=== PATIENT | male | born 1940 | race Hispanic/Latino ===

== ENCOUNTER 2019-01-05 19:57 | Inpatient (IN) | payer MEDICARE ==
[2019-01-05] MEDS ORDERED: TORADOL IV ONE (21:37)
[2019-01-05] MEDS ORDERED: NACL 0.9% 1000 ML 1,000 ML IV ONE ×2 (21:37→22:41)
[2019-01-05] MEDS ORDERED: ZOFRAN IV ONE (21:37)
--- NOTE | 2019-01-05 21:43 | Emergency Department Report ---
HPI - General Chief Complaint: Pain General Time Seen by Provider: 01/05/19 21:24 - HPI HPI: Room 26 The patient is 78-year-old male presented with a chief complaint of body aches. Patient has a history of heavy oxycodone use. The patient states he last used oxycodone 1 week ago. Since that time the patient states he's had diffuse body aches. Patient denies shortness of breath, cough or fever. Patient denies nausea/vomiting states he's had diarrhea for 3-4 days. The patient also states he's had pain in his right calf with swelling for 1 week as well. Patient was reportedly hypoxic in the 80s on room air. 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 denies: nausea, vomiting Genitourinary: denies: dysuria Musculoskeletal: arthralgia, myalgia Neurological: denies: headache Physical Exam - Physical Exam Vital Signs: Vital Signs 01/05/19 01/05/19 21:30 21:34 Temperature 97 F L Pulse Rate 152 H Respiratory 23 Rate Blood Pressure 106/68 O2 Sat by Pulse 92 Oximetry Physical Exam: GENERAL: The patient is well-developed well-nourished male lying on stretcher not appearing to be in acute distress. [] HEENT: Normocephalic. Atraumatic. Extraocular motions are intact. Patient has moist mucous membranes. NECK: Supple. Trachea midline CHEST/LUNGS: Clear to auscultation. There is no respiratory distress noted. HEART/CARDIOVASCULAR: Regular. There is tachycardia. There is no gallop rub or murmur. ABDOMEN: Abdomen is soft, nontender. Patient has normal bowel sounds. There is no abdominal distention. SKIN: There is no rash. There is right lower extremity edema. There is no diaphoresis. NEURO: The patient is awake, alert, and oriented. The patient is cooperative. The patient has normal speech MUSCULOSKELETAL: There is no evidence of acute injury. ED Course Vital Signs 01/05/19 01/05/19 21:30 21:34 Temperature 97 F L Pulse Rate 152 H Respiratory 23 Rate Blood Pressure 106/68 O2 Sat by Pulse 92 Oximetry ED Medical Decision Making - Lab Data Result diagrams: 01/05/19 23:16 01/05/19 23:41 Laboratory Tests 01/05/19 01/05/19 01/05/19 21:39 21:47 21:47 WBC RBC Hgb Hct MCV MCH MCHC RDW Plt Count Lymph % (Auto) [place] % (Auto) Eos % (Auto) Baso % (Auto) Lymph # [place] # Eos # Baso # Seg Neutrophils % Seg Neutrophils # PT 15.6 H INR 1.17 H APTT 24.1 L POC ABG pH POC ABG pCO2 POC ABG HCO3 POC ABG Total CO2 POC ABG O2 Sat POC ABG Base Excess FiO2 Sodium Potassium Chloride Carbon Dioxide Anion Gap BUN Creatinine Estimated GFR BUN/Creatinine Ratio Glucose Calcium Total Bilirubin AST ALT Alkaline Phosphatase Total Creatine Kinase 45 L CK-MB (CK-2) 1.3 CK-MB (CK-2) Rel Index 2.8 Troponin T Total Protein Albumin Albumin/Globulin Ratio Lipase Urine Color Yellow Urine Turbidity Clear Urine pH 6.0 Ur Specific [place] 1.005 Urine Protein <15 mg/dl Urine Glucose (UA) Neg Urine Ketones Neg Urine Blood Neg Urine Nitrite Neg Urine Bilirubin Neg Urine Urobilinogen < 2.0 Ur Leukocyte Esterase Neg Urine WBC (Auto) 1.0 Urine RBC (Auto) 1.0 Urine Mucus Few 01/05/19 01/05/19 01/05/19 21:47 22:07 23:16 WBC 26.5 H RBC 4.02 Hgb 12.7 Hct 38.2 MCV 95 H MCH 32 MCHC 33 RDW 15.6 H Plt Count 560 H Lymph % (Auto) Columnist/Commentator [place] % (Auto) Columnist/Commentator Eos % (Auto) Columnist/Commentator Baso % (Auto) Columnist/Commentator Lymph # Columnist/Commentator [place] # Columnist/Commentator Eos # Columnist/Commentator Baso # Columnist/Commentator Seg Neutrophils % Columnist/Commentator Seg Neutrophils # Columnist/Commentator PT INR APTT POC ABG pH 7.494 H POC ABG pCO2 42.2 POC ABG HCO3 32.4 POC ABG Total CO2 34 POC ABG O2 Sat 82 POC ABG Base Excess 9 FiO2 21 Sodium 123 L Potassium 7.7 H* Chloride 85.4 L Carbon Dioxide 29 Anion Gap 16 BUN 15 Creatinine 0.6 L Estimated GFR > 60 BUN/Creatinine Ratio 25 Glucose 93 Calcium 7.8 L Total Bilirubin 0.80 AST 115 H ALT 62 H Alkaline Phosphatase 168 H Total Creatine Kinase CK-MB (CK-2) CK-MB (CK-2) Rel Index Troponin T < 0.010 Total Protein 6.6 Albumin 1.5 L Albumin/Globulin Ratio 0.3 Lipase 32 Urine Color Urine Turbidity Urine pH Ur Specific [place] Urine Protein Urine Glucose (UA) Urine Ketones Urine Blood Urine Nitrite Urine Bilirubin Urine Urobilinogen Ur Leukocyte Esterase Urine WBC (Auto) Urine RBC (Auto) Urine Mucus 01/05/19 23:41 WBC RBC Hgb Hct MCV MCH MCHC RDW Plt Count Lymph % (Auto) [place] % (Auto) Eos % (Auto) Baso % (Auto) Lymph # [place] # Eos # Baso # Seg Neutrophils % Seg Neutrophils # PT INR APTT POC ABG pH POC ABG pCO2 POC ABG HCO3 POC ABG Total CO2 POC ABG O2 Sat POC ABG Base Excess FiO2 Sodium Potassium 4.7 D Chloride Carbon Dioxide Anion Gap BUN Creatinine Estimated GFR BUN/Creatinine Ratio Glucose Calcium Total Bilirubin AST ALT Alkaline Phosphatase Total Creatine Kinase CK-MB (CK-2) CK-MB (CK-2) Rel Index Troponin T Total Protein Albumin Albumin/Globulin Ratio Lipase Urine Color Urine Turbidity Urine pH Ur Specific [place] Urine Protein Urine Glucose (UA) Urine Ketones Urine Blood Urine Nitrite Urine Bilirubin Urine Urobilinogen Ur Leukocyte Esterase Urine WBC (Auto) Urine RBC (Auto) Urine Mucus - EKG Data -: EKG Interpreted by Me EKG shows normal: sinus rhythm Rate: tachycardia (146 bpm) - EKG Data When compared to previous EKG there are: previous EKG unavailable Interpretation: nonspecific ST-T wave marielos - Radiology Data Radiology results: report reviewed (CT chest), image reviewed (CT chest) [facility] [address] [place] [address] Cat Scan Report Signed Patient: ASHLEY BOATENG MR#: [id number] : 1940 Acct:[id number] Age/Sex: 78 / M ADM Date: 01/05/19 Loc: ED Attending Dr: Ordering Physician: BURAK DE OLIVEIRA MD Date of Service: 01/05/19 Procedure(s): CT angio chest Accession Number(s): [id number] cc: BURAK DE OLIVEIRA MD PROCEDURE: CT ANGIOGRAM OF THE CHEST FOR PULMONARY EMBOLISM TECHNIQUE: Computerized axial tomographic angiography of the chest and pulmonary arteries was performed after the IV injection of iodinated nonionic contrast. The image data was postprocessed using maximum intensity projection (MIP) and 2- dimensional multiplanar reformatted (MPR) techniques. The examination is specifically tailored to the evaluation of the pulmonary arteries per clinical request. Automated exposure control, adjustment of mA and/or kV according to patient size, or iterative reconstruction dose optimization techniques were utilized. CPT G9637, 98357 HISTORY: Shortness of breath R06.02, chest pain unspecified R07.9 , COMPARISONS: None . FINDINGS: Heart and pericardium: Normal. Thoracic aorta: There is calcified plaque in the thoracic aorta. 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 There is no dissection.. Pulmonary vasculature: Normal. No pulmonary emboli. Lymph nodes: No enlarged thoracic lymph nodes. Lungs: There are chronic fibrotic and emphysematous changes. There are diffuse bilateral pulmonary infiltrates consistent with pneumonitis.. Pleural space: There are small pleural effusions. There is no pneumothorax.. Musculoskeletal structures: There are old healed left-sided rib fractures.. Upper abdominal structures: No significant abnormality. IMPRESSION: There is calcified plaque in the thoracic aorta. 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 There i s no dissection. There is no pulmonary embolism. There are chronic fibrotic and emphysematous changes. There are diffuse bilateral pulmonary infiltrates consistent with pneumonitis. There are small pleural effusions. There is no pneumothorax. There are old healed left-sided rib fractures. This document is electronically signed by Umberto Dominguez MD., January 06 2019 12:05:21 AM ET Transcribed By: CO Dictated By: UMBERTO DOMINGUEZ MD Electronically Authenticated By: UMBETRO DOMINGUEZ MD Signed Date/Time: 01/06/19 0008 DD/ 99 TD/TT: 01/05/192300 - Differential Diagnosis PE, COPD, opiate withdrawal Critical care attestation.: If time is entered above; I have spent that time in minutes in the direct care o f this critically ill patient, excluding procedure time. ED Disposition Clinical Impression: Pneumonitis, Opiate withdrawal, Leukocytosis Disposition: OP ADMIT IP TO THIS HOSP Is pt being admited?: Yes Does the pt Need Aspirin: Yes Condition: Serious Referrals: TRICIA HECTOR MD [Primary Care Provider] - 3-5 Days Time of Disposition: 00:28 (hospitalist notified (Dr Pitts))
[2019-01-05] MEDS ORDERED: XOPENEX IH ONE (21:44)
[2019-01-05] MEDS ORDERED: BENADRYL PO ONE (21:45)
[2019-01-05 22:07] LABS: Bilirubin,Urine NEG (Negative); Blood,Urine NEG (Negative); Color,Urine Yellow (Yellow); Mucus,Urine FEW /HPF; Protein,Urine <15 mg/dL mg/dL (Negative); Urobilinogen,Urine < 2.0 mg/dL (<2.0)
[2019-01-05 22:20] LABS: INR 1.17 (0.87-1.13); Partial Thromboplastin Time 24.1 Sec. (24.2-36.6)
[2019-01-05 22:26] LABS: Creatine Kinase MB 1.3 ng/mL (0.0-4.0)
[2019-01-05 22:29] LABS: Albumin 1.5 g/dL (3.9-5); BUN/Creatinine Ratio 25; Blood Urea Nitrogen 15 mg/dL (9-20); Calcium 7.8 mg/dL (8.4-10.2); Hemolysis Index 488
[2019-01-05 22:58] LABS: Alanine Aminotransferase 62 units/L (7-56)
[2019-01-05 23:29] LABS: Hematocrit 38.2 % (35.5-45.6); Hemoglobin 12.7 gm/dl (11.8-15.2); Mean Corpuscular HGB Conc 33 % (32-34); Mean Corpuscular Volume 95 fl (84-94); Platelet Count 560 K/mm3 (140-440); Red Blood Count 4.02 M/mm3 (3.65-5.03); Red Cell Distribution Width 15.6 % (13.2-15.2)
--- NOTE | 2019-01-06 00:08 | Cat Scan Report ---
PROCEDURE: CT ANGIOGRAM OF THE CHEST FOR PULMONARY EMBOLISM TECHNIQUE: Computerized axial tomographic angiography of the chest and pulmonary arteries was perfor med after the IV injection of iodinated nonionic contrast. The image data was postprocessed using max imum intensity projection (MIP) and 2-dimensional multiplanar reformatted (MPR) techniques. The exami nation is specifically tailored to the evaluation of the pulmonary arteries per clinical request. Au tomated exposure control, adjustment of mA and/or kV according to patient size, or iterative reconstr uction dose optimization techniques were utilized. CPT G9637, 46173 HISTORY: Shortness of breath R06.02, chest pain unspecified R07.9 , COMPARISONS: None . FINDINGS: Heart and pericardium: Normal. Thoracic aorta: There is calcified plaque in the thoracic aorta. The ascending thoracic aorta is ect atic and measures up to 5 cm in diameter. There is no dissection.. Pulmonary vasculature: Normal. No pulmonary emboli. Lymph nodes: No enlarged thoracic lymph nodes. Lungs: There are chronic fibrotic and emphysematous changes. There are diffuse bilateral pulmonary i nfiltrates consistent with pneumonitis.. Pleural space: There are small pleural effusions. There is no pneumothorax.. Musculoskeletal structures: There are old healed left-sided rib fractures.. Upper abdominal structures: No significant abnormality. IMPRESSION: There is calcified plaque in the thoracic aorta. 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 There is no dissection. There is no pulmonary embolism. There are chronic fibrotic and emphysematous changes. There are diffuse bilateral pulmonary infiltrat es consistent with pneumonitis. There are small pleural effusions. There is no pneumothorax. There are old healed left-sided rib fractures. This document is electronically signed by Umberto Freeman MD., January 06 2019 12:05:21 AM ET
[2019-01-06] MEDS ORDERED: ZOSYN/NS 4.5GM/100ML 4.5 GM/100 ML VIAL IV ONE (00:10)
[2019-01-06] MEDS ORDERED: ZOFRAN IV PRN (01:52)
[2019-01-06] MEDS ORDERED: PROVENTIL IH PRN (01:54)
[2019-01-06 02:39] LABS: BUN/Creatinine Ratio 30; Blood Urea Nitrogen 15 mg/dL (9-20); Calcium 7.3 mg/dL (8.4-10.2); Hemolysis Index 10
[2019-01-06] MEDS: ATIVAN IV PRN (02:56)
[2019-01-06 03:34] LABS: Total Cells Counted 100
[2019-01-06 03:35] LABS: Basophils % (Manual) 0 % (0.0-1.8); Eosinophils % (Manual) 0 % (0.0-4.3); Large Platelets 1+; Platelet Estimate Appears Increased
[2019-01-06 03:36] LABS: Anisocytosis 1+; Ovalocytes 1+; Target Cells Few
[2019-01-06] MEDS ORDERED: DUONEB *Not for PRN Use IH ONE ×3 (03:42→15:01)
[2019-01-06] MEDS ORDERED: CARDIZEM IV ONE (04:28)
[2019-01-06] MEDS: DUONEB *Not for PRN Use IH SCH ×4 (04:41→20:48)
[2019-01-06] MEDS ORDERED: CARDIZEM ONE (04:59)
[2019-01-06] MEDS ORDERED: NACL 0.9% 1000 ML 1,000 ML ONE (05:00)
[2019-01-06] MEDS: NACL 0.9% 1000 ML 1,000 ML IV SCH (05:16)
--- NOTE | 2019-01-06 06:14 | History and Physical Report ---
CHIEF COMPLAINT: Generalized body pain. OTHER COMPLAINT: Include restlessness. HISTORY OF PRESENTING ILLNESS: The patient is a 78-year-old male who has been complaining of generalized body aches and also lethargy and the patient is known to be a heavy oxycodone user, but used his last oxycodone 1 week prior to presentation and ever since then, has been having generalized body pain. There is no history of nausea and vomiting, but there is history of diarrhea for about 3-4 days. The patient denies history of chest pain. Denied history of shortness of breath, cough, fever or chills and was noted to have a low oxygen saturation while on room air, which was running in the 80s and the patient was evaluated in the Emergency Room. PAST MEDICAL HISTORY: Pertinent for hypertension, COPD, hypothyroidism. 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 FAMILY HISTORY: Family history is noncontributory. SOCIAL HISTORY: The patient smokes cigarettes, uses oxycodone a lot and is not clear whether the patient drinks alcohol. MEDICATIONS: The patient is on aspirin 81 mg daily. The patient is also on zolpidem ____ mg by mouth at bedtime and the patient is on ferrous sulfate 325 mg one by mouth daily. The patient is on ibuprofen 200 mg by mouth every 6 hours and levothyroxine 112 mcg by mouth daily. The patient is also on lisinopril 5 mg by mouth at bedtime and Percocet 5/325 mg 1 tablet by mouth every 4 hours as needed for pain. ALLERGIES: THE PATIENT IS ALLERGIC TO PREGABALIN. REVIEW OF SYSTEMS: CONSTITUTIONAL: There is no fever, no chills, no diaphoresis. HEENT: There is no headache or sore throat. CARDIOVASCULAR SYSTEM: There is no chest pain or orthopnea. RESPIRATORY SYSTEM: Difficulty in breathing noted, no cough. GASTROINTESTINAL SYSTEM: There is no nausea, no vomiting, no abdominal pain, diarrhea or constipation. NEUROLOGICAL SYSTEM: Lethargy noted. No dizziness, no numbness. MUSCULOSKELETAL SYSTEM: Generalized body pain noted. No joint swelling. DERMATOLOGICAL SYSTEM: There is no skin rash or itching. GENITOURINARY SYSTEM: There is no dysuria, hematuria or flank pain. Rest of system review is normal. PHYSICAL EXAMINATION: GENERAL: At the time of exam, the patient was found to be lethargic, but arousable, unable to communicate and oriented to person only and not in acute distress. VITAL SIGNS: At the initial time of presentation show temperature of 97 degrees Fahrenheit, pulse of 152, respirations 23, blood pressure of 106/65, O2 sat of 92% on oxygen. HEENT: Showed pupils to be equal, round, reactive to light and accommodating. Extraocular muscles are intact. NECK: Neck is supple with no JVD or carotid bruit. CARDIOVASCULAR SYSTEM: Showed normal first and second heart sounds with no gallops or murmurs. RESPIRATORY SYSTEM: Show reduced air entry on both sides of the lungs with no abnormal breath sounds. GASTROINTESTINAL SYSTEM: Show abdomen to be full, soft, nontender with no organomegaly or rigidity. NEUROLOGICAL: Neuro exam shows the patient to be lethargic, but arousable, able to communicate with no focal deficit. MUSCULOSKELETAL SYSTEM: Show swelling of both legs including the ankles with no tenderness. DERMATOLOGIC SYSTEM: Show no skin rash. GENITOURINARY SYSTEM: Show no costovertebral angle tenderness. PERTINENT LABORATORY DATA AND IMAGING STUDIES: The patient has CT angiogram of the chest done that shows calcified plaque in the thoracic aorta with no evidence of dissection or embolism. There are chronic fibrotic and emphysematous changes and there is finding of diffuse bilateral pulmonary infiltrates consistent with pneumonitis according to the radiologist. There are small pleural effusion and no pneumothorax. Lab results; the patient has CBC done with elevated white count of 26,500 with normal hemoglobin, normal hematocrit with CBC differential showing high segmented neutrophil of 91% with CBC differential showing elevated segmented neutrophil count of 24.1. The patient's coagulation studies show a little high PT of 15.6. The patient's ABG show elevated pH of 7.49 with normal pCO2 of 42.2, normal bicarb, low O2 sat of 82% on room air. The patient's chemistry show initial low sodium level of 123, low chloride of 85.4 with unremarkable renal function test. The patient's liver transaminases show high AST of 115 with high ALT of 62 and total CK of 45 with low albumin of 1.5. The patient's urinalysis was unremarkable. DIAGNOSES: 1. Possible opioid withdrawal. 2. Pneumonitis. 3. Hypoxia. 4. Leukocytosis. PLAN OF CARE: 1. The patient will be admitted to telemetry. 2. The patient will have a dose of Cardizem 20 mg IV because of tachycardia. 3. The patient will have cardiac enzymes involving troponin checked q. 6 hours x 2 more levels. 4. The patient will have TSH and free T4 checked with the blood in the lab and we will have basic metabolic panel checked early childhood director and also at about 6:00 a.m. 5. The patient will be on IV normal saline at 75 mL an hour and will continue BiPAP that was started in the Emergency Room. 6. The patient will be on IV Zosyn 3.375g q. 8 hours for treatment of pneumonitis and will be on IV Zofran 4 mg every 8 hours as needed for nausea and vomiting and Tylenol 650mg by mouth every 4 hours for fever and headache. The patient will be on albuterol nebulizer 2.5 mg every 4 hours for shortness of breath and DVT prophylaxis, the patient will be on heparin 5000 units q. 12 hours. 7. The patient will be on duo nebulizer every 6 hours. 8. The patient will be on his home medication as shown in the medication reconciliation section. JOB# [id number] OCN/NTS
[2019-01-06] MEDS: SYNTHROID PO SCH (06:50)
[2019-01-06] MEDS: ZOSYN/NS 3.375GM/50ML 3.375 GM/50 ML BAG IV SCH ×3 (06:50→23:28)
[2019-01-06] MEDS ORDERED: CARDIZEM 100 MG in D5W 80 ML IV SCH (07:00)
[2019-01-06 07:54] LABS: BUN/Creatinine Ratio 30; Blood Urea Nitrogen 15 mg/dL (9-20); Calcium 7.4 mg/dL (8.4-10.2); Hemolysis Index 23
--- NOTE | 2019-01-06 08:51 | Consultation ---
History of Present Illness Consult date: 01/06/19 Requesting physician: TORO TORRES Reason for consult: COPD, hypoxemia, pneumonia History of present illness: Patient is a 78 year old male who was brought to the emergency department with complaints of generalized pain. He bilateral pneumonia, acute hypoxemic respiratory failure requiring supplemental oxygen and SVT. A pulmonary-critical care consult was requested. On admission, Initial labs revealed leukocytosis, WBC of 26.5 and severe hyponatremia with a sodium of 123. TSH is 9.25. A chest CTA scan documents an ectatic ascending thoracic aorta measuring 5cm. There are chronic emphysematous changes. There are diffuse bilateral pulmonary infiltrates. No evidence of pulmonary embolism. Patient has a history of hypothyroidism, chronic narcotic use and tobacco use disorder with ongoing use. Patient was seen and examined in the ED. Vitals, labs, medications, chart and and imaging were reviewed. He is intermittently confused, on oxygen via a Venturi mask, FIO2 of 50% Amiodarone infusion. 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 denies: nausea, vomiting Genitourinary: denies: dysuria Musculoskeletal: arthralgia, myalgia Neurological: denies: headache Medications and Allergies Allergies Allergy/AdvReac Type Severity Reaction Status Date / Time pregabalin [From Lyrica] AdvReac Unknown Verified 01/05/19 21:43 Home Medications Medication Instructions Recorded Confirmed Last Taken Type Aspirin EC 81 mg PO DAILY 01/06/19 01/06/19 Unknown History Eszopiclone 3 mg PO HS 01/06/19 01/06/19 Unknown History Ferrous Sulfate [Iron] 1 tab PO DAILY 01/06/19 01/06/19 Unknown History Ibuprofen 200 mg PO Q6HR PRN 01/06/19 01/06/19 Unknown History Levothyroxine [Synthroid] 112 mcg PO DAILY 01/06/19 01/06/19 Unknown History Lisinopril [Prinivil] 5 mg PO HS 01/06/19 01/06/19 Unknown History oxyCODONE /ACETAMINOPHEN [Percocet 5 mg PO Q4HR PRN 01/06/19 01/06/19 Unknown History 5/325 mg] Active Meds: Active Medications Acetaminophen (Tylenol) 650 mg PO Q4H PRN PRN Reason: Pain, Mild (1-3) Albuterol/Ipratropium (Duoneb *Not For Prn Use*) 1 ampul IH Q6HRT [facility] Last Admin: 01/06/19 08:42 Dose: 1 ampul Documented by: Aspirin (Halfprin Ec) 81 mg PO DAILY JONI Ferrous Sulfate (Feosol) 325 mg PO DAILY [facility] Heparin Sodium (Porcine) (Heparin) 5,000 unit SUB-Q Q12HR JONI Piperacillin Sod/Tazobactam Sod (Zosyn/Ns 3.375gm/50ml) 3.375 gm in 50 mls @ 100 mls/hr IV Q8HR JONI; Protocol Last Admin: 01/06/19 06:50 Dose: 100 mls/hr Documented by: Sodium Chloride (Nacl 0.9% 1000 Ml) 1,000 mls @ 75 mls/hr IV DIRECT JONI Last Admin: 01/06/19 05:16 Dose: 75 mls/hr Documented by: Diltiazem HCl 100 mg/ Dextrose 100 mls @ 5 mls/hr IV DIRECT JONI; Protocol Last Admin: 01/06/19 07:14 Dose: 5 mg/hr, 5 mls/hr Documented by: Amiodarone HCl 900 mg/ (Dextrose) 500 mls @ 33.333 mls/hr IV DIRECT JONI; Protocol Levothyroxine Sodium (Synthroid) 112 mcg PO DAILY@0600 JONI Last Admin: 01/06/19 06:50 Dose: 112 mcg Documented by: Lisinopril (Zestril) 5 mg PO HS [facility] Lorazepam (Ativan) 1 mg IV Q4H PRN PRN Reason: Anxiety Last Admin: 01/06/19 02:56 Dose: 1 mg Documented by: Miscellaneous Medication (Eszopiclone [Eszopiclone]) 3 mg PO HS JONI Ondansetron HCl (Zofran) 4 mg IV Q8H PRN PRN Reason: Nausea And Vomiting Physical Examination Vital signs: Vital Signs Pulse Resp BP Pulse Ox 152 H 23 106/68 91 01/05/19 21:30 01/05/19 21:30 01/05/19 21:30 01/05/19 21:30 GENERAL: The patient is well-developed chronically ill male lying on stretcher In moderate respiratory distress, with supplemental oxygen via venturi mask HEENT: Normocephalic. Atraumatic. Extraocular motions are intact. Patient has moist mucous membranes. NECK: Supple. Trachea midline CHEST/LUNGS: Decreased AE bilaterally, Occ rhonchi HEART/CARDIOVASCULAR: Regular. There is tachycardia. There is no gallop rub or murmur. ABDOMEN: Abdomen is soft, non tender. Patient has normal bowel sounds. There is no abdominal distention. SKIN: There is no rash. There is right lower extremity edema. There is no d iaphoresis. NEURO: The patient is awake, alert, episodes of intermittent confusions with mumbling MUSCULOSKELETAL: There is no evidence of acute injury. Right knee post surgical scar Results - Laboratory Findings CBC and BMP: 01/12/19 05:39 01/12/19 05:42 ABG POC ABG pH 7.494 (7.35-7.45) H 01/05/19 22:07 POC ABG pCO2 42.2 (35-45) 01/05/19 22:07 POC ABG HCO3 32.4 (22-26 mml/L) 01/05/19 22:07 POC ABG Total CO2 34 (23-27mmol/L) 01/05/19 22:07 POC ABG O2 Sat 82 01/05/19 22:07 PT/INR, D-dimer PT 15.6 Sec. (12.2-14.9) H 01/05/19 21:47 INR 1.17 (0.87-1.13) H 01/05/19 21:47 Abnormal lab findings: Abnormal Labs 01/05/19 01/05/19 01/05/19 21:47 21:47 21:47 WBC MCV RDW Plt Count Seg Neuts % (Manual) Lymphocytes % (Manual) Seg Neutrophils # Man Lymphocytes # (Manual) Monocytes # (Manual) PT 15.6 H INR 1.17 H APTT 24.1 L POC ABG pH Sodium 123 L Potassium 7.7 H* Chloride 85.4 L Creatinine 0.6 L Glucose Calcium 7.8 L AST 115 H ALT 62 H Alkaline Phosphatase 168 H Total Creatine Kinase 45 L NT-Pro-B Natriuret Pep Albumin 1.5 L TSH 01/05/19 01/05/19 01/06/19 22:07 23:16 02:16 WBC 26.5 H MCV 95 H RDW 15.6 H Plt Count 560 H Seg Neuts % (Manual) 91.0 H Lymphocytes % (Manual) 4.0 L Seg Neutrophils # Man 24.1 H Lymphocytes # (Manual) 1.1 L Monocytes # (Manual) 1.3 H PT INR APTT POC ABG pH 7.494 H Sodium 131 L D Potassium Chloride 94.0 L Creatinine 0.5 L Glucose 122 H Calcium 7.3 L AST ALT Alkaline Phosphatase Total Creatine Kinase NT-Pro-B Natriuret Pep Albumin TSH 01/06/19 01/06/19 01/06/19 07:24 07:24 07:24 WBC MCV RDW Plt Count Seg Neuts % (Manual) Lymphocytes % (Manual) Seg Neutrophils # Man Lymphocytes # (Manual) Monocytes # (Manual) PT INR APTT POC ABG pH Sodium 132 L Potassium Chloride 96.3 L Creatinine 0.5 L Glucose Calcium 7.4 L AST ALT Alkaline Phosphatase Total Creatine Kinase NT-Pro-B Natriuret Pep 8941 H Albumin TSH 9.270 H - Diagnostic Findings Chest x-ray: image reviewed CT scan - chest: image reviewed (Emphysema, diffuse infiltrates, no PE) Assessment and Plan Acute Hypoxemic Respiratory Failure Bilateral pneumonia Acute COPD exacerbation Bilateral Pleural Effusions CMOP (HFpEF) Aortic Stenosis SVT Hyponatremia Hypothyroidism Elevated LFTs -Supplemental oxygen to keep O2 sats 88-90% -NIPPV as indicated fro work of breathing -Antibiotics for CAP -Bronchodilators, avoid YOLY use GILBERTO for now in view of SVT -VTE prophylaxis -Steroids for AE-COPD -Smoking cessation counselling done -Nicotine withdrawal precautions -Right lower extremity USS to r/o VTE -Hear failure measures -Chronic home medications, including thyroid replacement therapy -Pain management -Accuchecks with insulin therapy as needed for glycemic control -Target blood glucose 140-180mg/dL -prn CXR and ABG -Outpatient pulmonary follow up on discharge for optimization of treatment of COPD -SVT probably secondary to pulmonary illness, Cardiology consulted -Hyponatremia, gentle hydration with normal saline, follow electrolyte profile Discussed with ED physician CONDITION: CRITICAL PROGNOSIS: GUARDED CODE STATUS: FULL The high probability of a clinically significant, sudden or life threatening deterioration of the [cardiovascular and respiratory] system(s) required my full and direct attention, intervention and personal management. The aggregate critical care time was [35] minutes. This time is in addition to time spent performing reported procedures but includes the following: [x] Data Review and interpretation [x] Patient assessment and monitoring of vital signs [x] Documentation [x] Medication orders and management
[2019-01-06] MEDS: CORDARONE 900 MG in D5W 482 ML IV SCH (09:22)
[2019-01-06] MEDS ORDERED: HEPARIN ONE ×2 (09:38→22:13)
[2019-01-06] MEDS: FEOSOL PO SCH (09:40)
[2019-01-06] MEDS: HEPARIN SUB-Q SCH ×2 (09:42→22:13)
[2019-01-06] MEDS ORDERED: NON-FORMULARY (Aspirin Ec 81 MG) PO SCH (10:00)
[2019-01-06] MEDS: HALFPRIN EC PO SCH (10:50)
--- NOTE | 2019-01-06 11:05 | Consultation ---
History of Present Illness Consult date: 01/06/19 Consult reason: atrial fibrillation History of present illness: Patient is a 78 year old male who was brought to the emergency department with complaints of generalized pain. A cardiac consultation was requested for atrial fibrillation. On review, his EKG is narrow complex tachycardia consistent with AV node reentry tachycardia. There is no evidence of atrial fibrillation. Initial labs revealed leukocytosis, WBC of 26.5 and severe hyponatremia with a sodium of 123. TSH is 9.25. A chest CTA scan documents an ectatic ascending thoracic aorta measuring 5cm. There are chronic emphysematous changes. There are diffuse bilateral pulmonary infiltrates. No evidence of pulmonary embolism. Patient has a history of hypothyroidism. Patient also smokes cigarettes. He is known to [facility] and was recently seen by Dr Walker for anticipated carpal tunnel surgery. His latest cardiac workup was done January 2018. He had a stress thallium stress test that reports a small fixed mid apical wall defect with a well preserved left ventricular ejection fraction 55% on an echocardiogram. Medications and Allergies Allergies Allergy/AdvReac Type Severity Reaction Status Date / Time pregabalin [From Lyrica] AdvReac Unknown Verified 01/05/19 21:43 Home Medications Medication Instructions Recorded Confirmed Last Taken Type Aspirin EC 81 mg PO DAILY 01/06/19 01/06/19 Unknown History Eszopiclone 3 mg PO HS 01/06/19 01/06/19 Unknown History Ferrous Sulfate [Iron] 1 tab PO DAILY 01/06/19 01/06/19 Unknown History Ibuprofen 200 mg PO Q6HR PRN 01/06/19 01/06/19 Unknown History Levothyroxine [Synthroid] 112 mcg PO DAILY 01/06/19 01/06/19 Unknown History Lisinopril [Prinivil] 5 mg PO HS 01/06/19 01/06/19 Unknown History oxyCODONE /ACETAMINOPHEN [Percocet 5 mg PO Q4HR PRN 01/06/19 01/06/19 Unknown History 5/325 mg] Active Meds: Active Medications Acetaminophen (Tylenol) 650 mg PO Q4H PRN PRN Reason: Pain, Mild (1-3) Albuterol/Ipratropium (Duoneb *Not For Prn Use*) 1 ampul IH Q6HRT [facility] Last Admin: 01/06/19 08:42 Dose: 1 ampul Documented by: Aspirin (Halfprin Ec) 81 mg PO DAILY [facility] Last Admin: 01/06/19 10:50 Dose: 81 mg Documented by: Ferrous Sulfate (Feosol) 325 mg PO DAILY JONI Last Admin: 01/06/19 09:40 Dose: 325 mg Documented by: Heparin Sodium (Porcine) (Heparin) 5,000 unit SUB-Q Q12HR JONI Last Admin: 01/06/19 09:42 Dose: 5,000 unit Documented by: Piperacillin Sod/Tazobactam Sod (Zosyn/Ns 3.375gm/50ml) 3.375 gm in 50 mls @ 100 mls/hr IV Q8HR JONI; Protocol Last Admin: 01/06/19 06:50 Dose: 100 mls/hr Documented by: Sodium Chloride (Nacl 0.9% 1000 Ml) 1,000 mls @ 75 mls/hr IV DIRECT JONI Last Admin: 01/06/19 05:16 Dose: 75 mls/hr Documented by: Diltiazem HCl 100 mg/ Dextrose 100 mls @ 5 mls/hr IV DIRECT JONI; Protocol Last Admin: 01/06/19 07:14 Dose: 5 mg/hr, 5 mls/hr Documented by: Amiodarone HCl 900 mg/ (Dextrose) 500 mls @ 33.333 mls/hr IV DIRECT JONI; Protocol Last Admin: 01/06/19 09:22 Dose: 1 mg/min, 33.333 mls/hr Documented by: Levothyroxine Sodium (Synthroid) 112 mcg PO DAILY@0600 JONI Last Admin: 01/06/19 06:50 Dose: 112 mcg Documented by: Lisinopril (Zestril) 5 mg PO HS JONI Lorazepam (Ativan) 1 mg IV Q4H PRN PRN Reason: Anxiety Last Admin: 01/06/19 02:56 Dose: 1 mg Documented by: Miscellaneous Medication (Eszopiclone [Eszopiclone]) 3 mg PO HS JONI Ondansetron HCl (Zofran) 4 mg IV Q8H PRN PRN Reason: Nausea And Vomiting Physical Examination Vital Signs Pulse Resp BP Pulse Ox 152 H 23 106/68 91 01/05/19 21:30 01/05/19 21:30 01/05/19 21:30 01/05/19 21:30 General appearance: no acute distress HEENT: Positive: PERRL Neck: Positive: trachea midline Cardiac: Positive: Tachycardia Lungs: Positive: Decreased Breath Sounds Neuro: Positive: Grossly Intact Results 01/05/19 23:16 01/06/19 07:24 Cardiac Enzymes 01/05/19 01/05/19 Range/Units 21:47 21:47 AST 115 H (5-40) units/L CK-MB (CK-2) 1.3 (0.0-4.0) ng/mL Coagulation 01/05/19 Range/Units 21:47 PT 15.6 H (12.2-14.9) Sec. INR 1.17 H (0.87-1.13) APTT 24.1 L (24.2-36.6) Sec. CBC 01/05/19 Range/Units 23:16 WBC 26.5 H (4.5-11.0) K/mm3 RBC 4.02 (3.65-5.03) M/mm3 Hgb 12.7 (11.8-15.2) gm/dl Hct 38.2 (35.5-45.6) % Plt Count 560 H (140-440) K/mm3 Lymph # [employer] Dickens # [employer] Eos # [employer] Baso # [employer] Comprehensive Metabolic Panel 01/05/19 01/05/19 01/06/19 Range/Units 21:47 23:41 02:16 Sodium 123 L 131 L D (137-145) mmol/L Potassium 7.7 H* 4.7 D 4.6 (3.6-5.0) mmol/L Chloride 85.4 L 94.0 L (98-107) mmol/L Carbon Dioxide 29 30 (22-30) mmol/L BUN 15 15 (9-20) mg/dL Creatinine 0.6 L 0.5 L (0.8-1.5) mg/dL Glucose 93 122 H (75-100) mg/dL Calcium 7.8 L 7.3 L (8.4-10.2) mg/dL AST 115 H (5-40) units/L ALT 62 H (7-56) units/L Alkaline Phosphatase 168 H (35-129) units/L Total Protein 6.6 (6.3-8.2) g/dL Albumin 1.5 L (3.9-5) g/dL 01/06/19 Range/Units 07:24 Sodium 132 L (137-145) mmol/L Potassium 4.5 (3.6-5.0) mmol/L Chloride 96.3 L (98-107) mmol/L Carbon Dioxide 29 (22-30) mmol/L BUN 15 (9-20) mg/dL Creatinine 0.5 L (0.8-1.5) mg/dL Glucose 87 (75-100) mg/dL Calcium 7.4 L (8.4-10.2) mg/dL AST (5-40) units/L ALT (7-56) units/L Alkaline Phosphatase (35-129) units/L Total Protein (6.3-8.2) g/dL Albumin (3.9-5) g/dL Assessment and Plan Generalized pain -chief complaint AVNRT Hypothyroidism Pneumonia Severe hyponatremia Elevated liver transaminase Chronic lung disease Tobacco abuse Chest CTA documents an ectatic ascending thoracic aorta measuring 5cm. There are chronic emphysematous changes. There are diffuse bilateral pulmonary infiltrates. No evidence of pulmonary embolism. Cardiac tests 01/2018: Well preserved LVEF on echo. Small fixed apical wall defect, no reversible ischemia on MPI.
--- NOTE | 2019-01-06 12:12 | Progress Note ---
Assessment and Plan Assessment and plan: Sepsis. Patient needs criteria given the tachycardia, leukocytosis and diagnosis of pneumonia. Follow-up blood and urine cultures. Bilateral pneumonia. Continue IV antibiotics. Follow serial chest x-ray. SVT. Etiology likely secondary to above. Continue amiodarone. No evidence of PE on Chest CTA. Well preserved LVEF on echo 01/2018. Small fixed apical wall defect, no reversible ischemia on MPI 01/2018. Cardiology following. Hyponatremia. IV fluid normal saline. Hypothyroidism. TSH is 9.25. Start Synthroid. Elevated LFTs. Etiology likely secondary to sepsis/hypotension. The high probability of a clinically significant, sudden or life threatening deterioration of the [cardiac, hemodynamic and respiratory] system(s) required my full and direct attention, intervention and personal management. The aggregate critical care time was [33] minutes. This time is in addition to time spent performing reported procedures but includes the following: [x] Data Review and interpretation [x] Patient assessment and monitoring of vital signs [x] Documentation [x] Medication orders and management History Interval history: Patient is a 78 year old male who was brought to the emergency department with complaints of generalized pain. A cardiac consultation was requested for atrial fibrillation. On review, his EKG is wide complex tachycardia consistent with SVT. There is no evidence of atrial fibrillation. The patient was initially started on Cardizem drip but developed hypotension. Amiodarone drip was then initiated. On admission, Initial labs revealed leukocytosis, WBC of 26.5 and severe hyponatremia with a sodium of 123. TSH is 9.25. A chest CTA scan documents an ectatic ascending thoracic aorta measuring 5cm. There are chronic emphysematous changes. There are diffuse bilateral pulmonary infiltrates. No evidence of pulmonary embolism. Patient has a history of hypothyroidism. Patient also smokes cigarettes. He is known to [facility] and was recently seen by Dr Walker for anticipated carpal tunnel surgery. His latest cardiac workup was done January 2018. He had a stress thallium stress test that reports a small fixed mid apical wall defect with a well preserved left ventricular ejection fraction 55% on an echocardiogram. No new issues overnight. Hospitalist Physical - Constitutional Vitals: Temp Pulse Resp BP Pulse Ox 98.8 F 148 H 20 102/64 96 01/06/19 07:34 01/06/19 09:22 01/06/19 09:22 01/06/19 09:22 01/06/19 09:22 General appearance: Present: no acute distress - EENT Eyes: Present: PERRL, EOM intact ENT: hearing intact, clear oral mucosa, dentition normal - Neck Neck: Present: supple, normal ROM - Respiratory Respiratory effort: normal Respiratory: bilateral: diminished, rhonchi - Cardiovascular Rhythm: regular Heart Sounds: Present: S1 & S2. Absent: gallop, rub - Extremities Extremities: no ischemia, No edema, Full ROM - Abdominal General gastrointestinal: soft, non-tender, non-distended, normal bowel sounds - Integumentary Integumentary: Present: clear, warm, dry - Neurologic Neurologic: CNII-XII intact, moves all extremities Results - Labs CBC & Chem 7: 01/05/19 23:16 01/06/19 07:24 Labs: Laboratory Last Values WBC 26.5 K/mm3 (4.5-11.0) H 01/05/19 23:16 RBC 4.02 M/mm3 (3.65-5.03) 01/05/19 23:16 Hgb 12.7 gm/dl (11.8-15.2) 01/05/19 23:16 Hct 38.2 % (35.5-45.6) 01/05/19 23:16 MCV 95 fl (84-94) H 01/05/19 23:16 MCH 32 pg (28-32) 01/05/19 23:16 MCHC 33 % (32-34) 01/05/19 23:16 RDW 15.6 % (13.2-15.2) H 01/05/19 23:16 Plt Count 560 K/mm3 (140-440) H 01/05/19 23:16 Lymph % (Auto) Screen Making Supervisor 01/05/19 23:16 [place] % (Auto) Screen Making Supervisor 01/05/19 23:16 Eos % (Auto) Screen Making Supervisor 01/05/19 23:16 Baso % (Auto) Screen Making Supervisor 01/05/19 23:16 Lymph # Screen Making Supervisor 01/05/19 23:16 [place] # Screen Making Supervisor 01/05/19 23:16 Eos # Screen Making Supervisor 01/05/19 23:16 Baso # Screen Making Supervisor 01/05/19 23:16 Add Manual Diff Complete 01/05/19 23:16 Total Counted 100 01/05/19 23:16 Seg Neutrophils % Screen Making Supervisor 01/05/19 23:16 Seg Neuts % (Manual) 91.0 % (40.0-70.0) H 01/05/19 23:16 Band Neutrophils % 0 % 01/05/19 23:16 Lymphocytes % (Manual) 4.0 % (13.4-35.0) L 01/05/19 23:16 Reactive Lymphs % (Man) 0 % 01/05/19 23:16 Monocytes % (Manual) 5.0 % (0.0-7.3) 01/05/19 23:16 Eosinophils % (Manual) 0 % (0.0-4.3) 01/05/19 23:16 Basophils % (Manual) 0 % (0.0-1.8) 01/05/19 23:16 Metamyelocytes % 0 % 01/05/19 23:16 Myelocytes % 0 % 01/05/19 23:16 Promyelocytes % 0 % 01/05/19 23:16 Blast Cells % 0 % 01/05/19 23:16 Nucleated RBC % Not Reportable 01/05/19 23:16 Seg Neutrophils # Screen Making Supervisor 01/05/19 23:16 Seg Neutrophils # Man 24.1 K/mm3 (1.8-7.7) H 01/05/19 23:16 Band Neutrophils # 0.0 K/mm3 01/05/19 23:16 Lymphocytes # (Manual) 1.1 K/mm3 (1.2-5.4) L 01/05/19 23:16 Abs React Lymphs (Man) 0.0 K/mm3 01/05/19 23:16 Monocytes # (Manual) 1.3 K/mm3 (0.0-0.8) H 01/05/19 23:16 Eosinophils # (Manual) 0.0 K/mm3 (0.0-0.4) 01/05/19 23:16 Basophils # (Manual) 0.0 K/mm3 (0.0-0.1) 01/05/19 23:16 Metamyelocytes # 0.0 K/mm3 01/05/19 23:16 Myelocytes # 0.0 K/mm3 01/05/19 23:16 Promyelocytes # 0.0 K/mm3 01/05/19 23:16 Blast Cells # 0.0 K/mm3 01/05/19 23:16 WBC Morphology Not Reportable 01/05/19 23:16 Hypersegmented Neuts Not Reportable 01/05/19 23:16 Hyposegmented Neuts Not Reportable 01/05/19 23:16 Hypogranular Neuts Not Reportable 01/05/19 23:16 Smudge Cells Not Reportable 01/05/19 23:16 Toxic Granulation Not Reportable 01/05/19 23:16 Toxic Vacuolation Not Reportable 01/05/19 23:16 Dohle Bodies Not Reportable 01/05/19 23:16 Pelger-Huet Anomaly Not Reportable 01/05/19 23:16 Eugenio Rods Not Reportable 01/05/19 23:16 Platelet Estimate Appears increased 01/05/19 23:16 Clumped Platelets Not Reportable 01/05/19 23:16 Plt Clumps, EDTA Not Reportable 01/05/19 23:16 Large Platelets 1+ 01/05/19 23:16 Giant Platelets Not Reportable 01/05/19 23:16 Platelet Satelliting Not Reportable 01/05/19 23:16 Plt Morphology Comment Not Reportable 01/05/19 23:16 RBC Morphology Not Reportable 01/05/19 23:16 Dimorphic RBCs Not Reportable 01/05/19 23:16 Polychromasia Not Reportable 01/05/19 23:16 Hypochromasia Not Reportable 01/05/19 23:16 Poikilocytosis Not Reportable 01/05/19 23:16 Anisocytosis 1+ 01/05/19 23:16 Microcytosis Not Reportable 01/05/19 23:16 Macrocytosis Not Reportable 01/05/19 23:16 Spherocytes Not Reportable 01/05/19 23:16 Pappenheimer Bodies Not Reportable 01/05/19 23:16 Sickle Cells Not Reportable 01/05/19 23:16 Target Cells Few 01/05/19 23:16 Tear Drop Cells Not Reportable 01/05/19 23:16 Ovalocytes 1+ 01/05/19 23:16 Helmet Cells Not Reportable 01/05/19 23:16 [place] Bodies Not Reportable 01/05/19 23:16 [place] Rings Not Reportable 01/05/19 23:16 [place] Cells Not Reportable 01/05/19 23:16 Bite Cells Not Reportable 01/05/19 23:16 Crenated Cell Not Reportable 01/05/19 23:16 Elliptocytes Not Reportable 01/05/19 23:16 Acanthocytes (Spur) Not Reportable 01/05/19 23:16 Rouleaux Not Reportable 01/05/19 23:16 Hemoglobin C Crystals Not Reportable 01/05/19 23:16 Schistocytes Not Reportable 01/05/19 23:16 Malaria parasites Not Reportable 01/05/19 23:16 [place] Bodies Not Reportable 01/05/19 23:16 Hem Pathologist Commnt No 01/05/19 23:16 PT 15.6 Sec. (12.2-14.9) H 01/05/19 21:47 INR 1.17 (0.87-1.13) H 01/05/19 21:47 APTT 24.1 Sec. (24.2-36.6) L 01/05/19 21:47 POC ABG pH 7.494 (7.35-7.45) H 01/05/19 22:07 POC ABG pCO2 42.2 (35-45) 01/05/19 22:07 POC ABG HCO3 32.4 (22-26 mml/L) 01/05/19 22:07 POC ABG Total CO2 34 (23-27mmol/L) 01/05/19 22:07 POC ABG O2 Sat 82 01/05/19 22:07 POC ABG Base Excess 9 ((-2) - (+3)mmol/L) 01/05/19 22:07 FiO2 21 % 01/05/19 22:07 Sodium 132 mmol/L (137-145) L 01/06/19 07:24 Potassium 4.5 mmol/L (3.6-5.0) 01/06/19 07:24 Chloride 96.3 mmol/L (98-107) L 01/06/19 07:24 Carbon Dioxide 29 mmol/L (22-30) 01/06/19 07:24 Anion Gap 11 mmol/L 01/06/19 07:24 BUN 15 mg/dL (9-20) 01/06/19 07:24 Creatinine 0.5 mg/dL (0.8-1.5) L 01/06/19 07:24 Estimated GFR > 60 ml/min 01/06/19 07:24 BUN/Creatinine Ratio 30 % 01/06/19 07:24 Glucose 87 mg/dL (75-100) 01/06/19 07:24 Calcium 7.4 mg/dL (8.4-10.2) L 01/06/19 07:24 Total Bilirubin 0.80 mg/dL (0.1-1.2) 01/05/19 21:47 AST 115 units/L (5-40) H 01/05/19 21:47 ALT 62 units/L (7-56) H 01/05/19 21:47 Alkaline Phosphatase 168 units/L (35-129) H 01/05/19 21:47 Total Creatine Kinase 45 units/L (55-170) L 01/05/19 21:47 CK-MB (CK-2) 1.3 ng/mL (0.0-4.0) 01/05/19 21:47 CK-MB (CK-2) Rel Index 2.8 (0-4) 01/05/19 21:47 Troponin T < 0.010 ng/mL (0.00-0.029) 01/06/19 07:24 NT-Pro-B Natriuret Pep 8941 pg/mL (0-900) H 01/06/19 07:24 Total Protein 6.6 g/dL (6.3-8.2) 01/05/19 21:47 Albumin 1.5 g/dL (3.9-5) L 01/05/19 21:47 Albumin/Globulin Ratio 0.3 % 01/05/19 21:47 Lipase 32 units/L (13-60) 01/05/19 21:47 TSH 9.270 mlU/mL (0.270-4.200) H 01/06/19 07:24 Free T4 0.76 ng/dL (0.76-1.46) 01/06/19 07:24 Urine Color Yellow (Yellow) 01/05/19 21:39 Urine Turbidity Clear (Clear) 01/05/19 21:39 Urine pH 6.0 (5.0-7.0) 01/05/19 21:39 Ur Specific [place] 1.005 (1.003-1.030) 01/05/19 21:39 Urine Protein <15 mg/dl mg/dL (Negative) 01/05/19 21:39 Urine Glucose (UA) Neg mg/dL (Negative) 01/05/19 21:39 Urine Ketones Neg mg/dL (Negative) 01/05/19 21:39 Urine Blood Neg (Negative) 01/05/19 21:39 Urine Nitrite Neg (Negative) 01/05/19 21:39 Urine Bilirubin Neg (Negative) 01/05/19 21:39 Urine Urobilinogen < 2.0 mg/dL (<2.0) 01/05/19 21:39 Ur Leukocyte Esterase Neg (Negative) 01/05/19 21:39 Urine WBC (Auto) 1.0 /HPF (0.0-6.0) 01/05/19 21:39 Urine RBC (Auto) 1.0 /HPF (0.0-6.0) 01/05/19 21:39 Urine Mucus Few /HPF 01/05/19 21:39 Active Medications - Current Medications Current Medications: Generic Name Dose Route Start Last Admin Trade Name Freq PRN Reason Stop Dose Admin Acetaminophen 650 mg 01/06/19 01:50 Tylenol PO Q4H PRN Pain, Mild (1-3) Albuterol/Ipratropium 1 ampul 01/06/19 03:45 01/06/19 08:42 Duoneb *Not For Prn Use* IH 1 ampul Q6HRT JONI Administration Aspirin 81 mg 01/06/19 10:00 01/06/19 10:50 Halfprin Ec PO 81 mg DAILY JONI Administration Ferrous Sulfate 325 mg 01/06/19 10:00 01/06/19 09:40 Feosol PO 325 mg DAILY JONI Administration Heparin Sodium (Porcine) 5,000 unit 01/06/19 10:00 01/06/19 09:42 Heparin SUB-Q 5,000 unit Q12HR JONI Administration Piperacillin Sod/Tazobactam Sod 3.375 gm in 50 mls @ 100 mls/hr 01/06/19 06:00 01/06/19 06:50 Zosyn/Ns 3.375gm/50ml IV 100 mls/hr Q8HR JONI Administration Protocol Sodium Chloride 1,000 mls @ 75 mls/hr 01/06/19 05:00 01/06/19 05:16 Nacl 0.9% 1000 Ml IV 75 mls/hr DIRECT JONI Administration Diltiazem HCl 100 mg/ Dextrose 100 mls @ 5 mls/hr 01/06/19 07:00 01/06/19 07:14 IV 5 mg/hr DIRECT JONI 5 mls/hr Administration Protocol 5 MG/HR Amiodarone HCl 900 mg/ 500 mls @ 33.333 mls/hr 01/06/19 09:00 01/06/19 09:22 Dextrose IV 1 mg/min DIRECT JONI 33.333 mls/hr Administration Protocol 1 MG/MIN Levothyroxine Sodium 112 mcg 01/06/19 06:00 01/06/19 06:50 Synthroid PO 112 mcg DAILY@0600 JONI Administration Lisinopril 5 mg 01/06/19 22:00 Zestril PO HS JONI Lorazepam 1 mg 01/06/19 01:57 01/06/19 02:56 Ativan IV 1 mg Q4H PRN Administration Anxiety Miscellaneous Medication 3 mg 01/06/19 22:00 Eszopiclone [Eszopiclone] PO HS JONI Ondansetron HCl 4 mg 01/06/19 01:52 Zofran IV Q8H PRN Nausea And Vomiting
[2019-01-06] MEDS ORDERED: CORDARONE IV ONE ×2 (12:23→12:30)
[2019-01-06] MEDS ORDERED: NACL 0.9% 100 ML ONE (12:28)
[2019-01-06] MEDS ORDERED: D5W IV ONE (12:30)
[2019-01-06] MEDS: TYLENOL PO PRN (19:32)
[2019-01-06] MEDS ORDERED: ESZOPICLONE 3 MG PO SCH (22:00)
[2019-01-06] MEDS: ZESTRIL PO SCH (22:09)
[2019-01-07] MEDS ORDERED: AMBIEN ONE (00:03)
[2019-01-07] MEDS ORDERED: TYLENOL ONE ×2 (00:04→09:47)
[2019-01-07] MEDS: TYLENOL PO PRN ×3 (00:37→19:26)
[2019-01-07] MEDS: AMBIEN PO PRN (00:37)
[2019-01-07 04:25] LABS: Basophils % (Auto) 0.3 % (0.0-1.8); Eosinophils % (Auto) 0.3 % (0.0-4.3); Hematocrit 35.2 % (35.5-45.6); Hemoglobin 11.9 gm/dl (11.8-15.2); Lymphocytes # (Auto) 0.8 K/mm3 (1.2-5.4); Lymphocytes % (Auto) 5.5 % (13.4-35.0); Mean Corpuscular HGB Conc 34 % (32-34); Mean Corpuscular Volume 96 fl (84-94); Monocytes # (Auto) 1.5 K/mm3 (0.0-0.8); Platelet Count 584 K/mm3 (140-440); Red Blood Count 3.68 M/mm3 (3.65-5.03); Red Cell Distribution Width 15.7 % (13.2-15.2)
[2019-01-07 04:42] LABS: BUN/Creatinine Ratio 32; Blood Urea Nitrogen 16 mg/dL (9-20); Calcium 7.6 mg/dL (8.4-10.2); Hemolysis Index 10
[2019-01-07] MEDS: ZOSYN/NS 3.375GM/50ML 3.375 GM/50 ML BAG IV SCH ×3 (06:02→21:42)
[2019-01-07] MEDS: SYNTHROID PO SCH (07:37)
--- NOTE | 2019-01-07 10:34 | Progress Note ---
Assessment and Plan Patient sleeping at this time. Patient is on 2 litres O2. O2 saturation 96%.No acute respiratory distress. - Patient Problems (1) Opiate withdrawal Current Visit: Yes Status: Acute Plan to address problem: Aspiration precautions. O2 supplementation. Repeat ABGs on O2. (2) Pneumonitis Current Visit: Yes Status: Acute Plan to address problem: Patient is on zosyn. Recommend to add zithromax also. Subjective Date of service: 01/07/19 Interval history: Patient sleeping at this time. Patient is on 2 litres O2. O2 saturation 96%.No acute respiratory distress. Objective Vital Signs - 12hr 01/06/19 01/06/19 01/06/19 22:30 22:45 23:00 Temperature Pulse Rate 89 77 80 Respiratory 26 H 24 20 Rate Blood Pressure 105/50 105/43 104/48 O2 Sat by Pulse 96 96 97 Oximetry 01/06/19 01/06/19 01/06/19 23:16 23:30 23:45 Temperature Pulse Rate 82 82 83 Respiratory 25 H 19 18 Rate Blood Pressure 107/45 98/53 110/47 O2 Sat by Pulse 97 94 94 Oximetry 01/07/19 01/07/19 01/07/19 00:00 00:20 00:30 Temperature 98.3 F Pulse Rate 82 78 Respiratory 20 22 Rate Blood Pressure 111/47 111/47 104/57 O2 Sat by Pulse 97 86 95 Oximetry 01/07/19 01/07/19 01/07/19 00:45 01:00 01:15 Temperature Pulse Rate 79 75 89 Respiratory 20 21 22 Rate Blood Pressure 111/55 111/54 123/64 O2 Sat by Pulse 98 99 98 Oximetry 01/07/19 01/07/19 01/07/19 01:30 01:45 02:00 Temperature Pulse Rate 77 79 78 Respiratory 20 17 19 Rate Blood Pressure 103/56 101/53 105/55 O2 Sat by Pulse 99 98 97 Oximetry 01/07/19 01/07/19 01/07/19 02:15 02:30 02:45 Temperature Pulse Rate 83 77 82 Respiratory 17 22 20 Rate Blood Pressure 105/60 108/56 114/57 O2 Sat by Pulse 97 97 97 Oximetry 01/07/19 01/07/19 01/07/19 03:00 03:15 03:30 Temperature Pulse Rate 81 82 77 Respiratory 18 21 21 Rate Blood Pressure 114/58 111/56 111/55 O2 Sat by Pulse 94 98 98 Oximetry 01/07/19 01/07/19 01/07/19 03:45 04:00 04:15 Temperature Pulse Rate 82 80 84 Respiratory 19 20 21 Rate Blood Pressure 113/52 114/59 110/56 O2 Sat by Pulse 96 97 96 Oximetry 01/07/19 01/07/19 01/07/19 04:30 04:45 05:00 Temperature 97.8 F Pulse Rate 79 82 85 Respiratory 20 22 24 Rate Blood Pressure 110/52 109/54 112/59 O2 Sat by Pulse 97 97 96 Oximetry 01/07/19 01/07/19 01/07/19 05:15 05:30 05:45 Temperature Pulse Rate 82 91 H 77 Respiratory 22 16 20 Rate Blood Pressure 115/57 109/63 108/63 O2 Sat by Pulse 97 97 97 Oximetry 01/07/19 01/07/19 01/07/19 06:00 06:15 06:30 Temperature Pulse Rate 73 81 81 Respiratory 21 31 H 19 Rate Blood Pressure 112/53 108/61 113/55 O2 Sat by Pulse 96 96 97 Oximetry 01/07/19 01/07/19 01/07/19 06:45 07:00 07:15 Temperature Pulse Rate 76 81 80 Respiratory 23 23 24 Rate Blood Pressure 113/58 115/59 114/59 O2 Sat by Pulse 97 97 97 Oximetry 01/07/19 01/07/19 01/07/19 07:30 07:45 09:59 Temperature Pulse Rate 87 82 Respiratory 22 19 18 Rate Blood Pressure 114/54 109/57 O2 Sat by Pulse 97 97 Oximetry Constitutional: no acute distress, asleep Eyes: non-icteric ENT: oropharynx moist Neck: supple, no lymphadenopathy Ascultation: Bilateral: rhonchi Cardiovascular: regular rate and rhythm Gastrointestinal: normoactive bowel sounds, soft Integumentary: normal, rash Extremities: no cyanosis, no edema Neurologic: other (Patient sleeping at this time.) Psychiatric: other (Patient sleeping at this time.) CBC and BMP: 01/07/19 03:46 01/07/19 03:46 ABG, PT/INR, D-dimer: ABG POC ABG pH 7.494 (7.35-7.45) H 01/05/19 22:07 POC ABG pCO2 42.2 (35-45) 01/05/19 22:07 POC ABG HCO3 32.4 (22-26 mml/L) 01/05/19 22:07 POC ABG Total CO2 34 (23-27mmol/L) 01/05/19 22:07 POC ABG O2 Sat 82 01/05/19 22:07 PT/INR, D-dimer PT 15.6 Sec. (12.2-14.9) H 01/05/19 21:47 INR 1.17 (0.87-1.13) H 01/05/19 21:47 Abnormal lab findings: Abnormal Labs 01/05/19 01/05/19 01/05/19 21:47 21:47 21:47 WBC Hct MCV RDW Plt Count Lymph % (Auto) [place] % (Auto) Lymph # [place] # Seg Neutrophils % Seg Neuts % (Manual) Lymphocytes % (Manual) Seg Neutrophils # Seg Neutrophils # Man Lymphocytes # (Manual) Monocytes # (Manual) PT 15.6 H INR 1.17 H APTT 24.1 L POC ABG pH Sodium 123 L Potassium 7.7 H* Chloride 85.4 L Carbon Dioxide Creatinine 0.6 L Glucose Calcium 7.8 L AST 115 H ALT 62 H Alkaline Phosphatase 168 H Total Creatine Kinase 45 L NT-Pro-B Natriuret Pep Albumin 1.5 L TSH 01/05/19 01/05/19 01/06/19 22:07 23:16 02:16 WBC 26.5 H Hct MCV 95 H RDW 15.6 H Plt Count 560 H Lymph % (Auto) [place] % (Auto) Lymph # [place] # Seg Neutrophils % Seg Neuts % (Manual) 91.0 H Lymphocytes % (Manual) 4.0 L Seg Neutrophils # Seg Neutrophils # Man 24.1 H Lymphocytes # (Manual) 1.1 L Monocytes # (Manual) 1.3 H PT INR APTT POC ABG pH 7.494 H Sodium 131 L D Potassium Chloride 94.0 L Carbon Dioxide Creatinine 0.5 L Glucose 122 H Calcium 7.3 L AST ALT Alkaline Phosphatase Total Creatine Kinase NT-Pro-B Natriuret Pep Albumin TSH 01/06/19 01/06/19 01/06/19 07:24 07:24 07:24 WBC Hct MCV RDW Plt Count Lymph % (Auto) [place] % (Auto) Lymph # [place] # Seg Neutrophils % Seg Neuts % (Manual) Lymphocytes % (Manual) Seg Neutrophils # Seg Neutrophils # Man Lymphocytes # (Manual) Monocytes # (Manual) PT INR APTT POC ABG pH Sodium 132 L Potassium Chloride 96.3 L Carbon Dioxide Creatinine 0.5 L Glucose Calcium 7.4 L AST ALT Alkaline Phosphatase Total Creatine Kinase NT-Pro-B Natriuret Pep 8941 H Albumin TSH 9.270 H 01/07/19 01/07/19 03:46 03:46 WBC 14.9 H Hct 35.2 L MCV 96 H RDW 15.7 H Plt Count 584 H Lymph % (Auto) 5.5 L [place] % (Auto) 10.0 H Lymph # 0.8 L [place] # 1.5 H Seg Neutrophils % 83.9 H Seg Neuts % (Manual) Lymphocytes % (Manual) Seg Neutrophils # 12.5 H Seg Neutrophils # Man Lymphocytes # (Manual) Monocytes # (Manual) PT INR APTT POC ABG pH Sodium 134 L Potassium Chloride 95.1 L Carbon Dioxide 31 H Creatinine 0.5 L Glucose 106 H Calcium 7.6 L AST ALT Alkaline Phosphatase Total Creatine Kinase NT-Pro-B Natriuret Pep Albumin TSH CT scan - chest: report reviewed (Report entered next page.), image reviewed Additional Studies: CTA of chest done on 01/06/19. IMPRESSION: There is calcified plaque in the thoracic aorta. 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 There is no dissection. There is no pulmonary embolism. There are chronic fibrotic and emphysematous changes. There are diffuse bilatera l pulmonary infiltrates consistent with pneumonitis. There are small pleural effusions. There is no pneumothorax. There are old healed left-sided rib fractures
--- NOTE | 2019-01-07 12:14 | Progress Note ---
Assessment and Plan Generalized pain -chief complaint AVNRT s/p adenosine Hypothyroidism Pneumonia Severe hyponatremia Elevated liver transaminase Chronic lung disease Tobacco abuse Chest CTA documents an ectatic ascending thoracic aorta measuring 5cm. There are chronic emphysematous changes. There are diffuse bilateral pulmonary infiltrates. No evidence of pulmonary embolism. Cardiac tests 01/2018: Well preserved LVEF on echo. Small fixed apical wall defect, no reversible ischemia on MPI. Recommendations: We will transition to oral amiodarone for suppression of atrial tachycardia. Echocardiogram for left ventricular function assessment. Subjective Date of service: 01/07/19 Interval history: Patient is resting in bed comfortably. Asking for pain medication for generalized pain. IV amiodarone continues. Stable sinus rhythm on telemetry. Objective Vital Signs Temp Pulse Pulse Resp Resp BP BP 01/07/19 11:15 85 23 117/55 01/07/19 11:00 91 H 23 116/58 01/07/19 10:45 92 H 23 118/64 01/07/19 10:30 83 22 125/60 01/07/19 10:15 68 21 117/58 01/07/19 10:00 76 21 108/59 01/07/19 09:59 18 01/07/19 09:45 79 24 111/56 01/07/19 09:30 77 23 105/56 01/07/19 09:15 83 22 106/55 01/07/19 09:00 81 24 104/56 01/07/19 08:45 79 16 109/57 01/07/19 08:30 82 21 119/64 01/07/19 08:15 79 22 114/61 01/07/19 08:00 75 23 112/59 01/07/19 07:45 82 19 109/57 01/07/19 07:30 87 22 114/54 01/07/19 07:15 80 24 114/59 01/07/19 07:00 81 23 115/59 01/07/19 06:45 76 23 113/58 01/07/19 06:30 81 19 113/55 01/07/19 06:15 81 31 H 108/61 01/07/19 06:00 73 21 112/53 01/07/19 05:45 77 20 108/63 01/07/19 05:30 91 H 16 109/63 01/07/19 05:15 82 22 115/57 01/07/19 05:00 97.8 F 85 24 112/59 01/07/19 04:45 82 22 109/54 01/07/19 04:30 79 20 110/52 01/07/19 04:15 84 21 110/56 01/07/19 04:00 80 20 114/59 01/07/19 03:45 82 19 113/52 01/07/19 03:30 77 21 111/55 01/07/19 03:15 82 21 111/56 01/07/19 03:00 81 18 114/58 01/07/19 02:45 82 20 114/57 01/07/19 02:30 77 22 108/56 01/07/19 02:15 83 17 105/60 01/07/19 02:00 78 19 105/55 01/07/19 01:45 79 17 101/53 01/07/19 01:30 77 20 103/56 01/07/19 01:15 89 22 123/64 01/07/19 01:00 75 21 111/54 01/07/19 00:45 79 20 111/55 01/07/19 00:30 78 22 104/57 01/07/19 00:20 111/47 01/07/19 00:00 98.3 F 82 20 111/47 01/06/19 23:45 83 18 110/47 01/06/19 23:30 82 19 98/53 01/06/19 23:16 82 25 H 107/45 01/06/19 23:00 80 20 104/48 01/06/19 22:45 77 24 105/43 01/06/19 22:30 89 26 H 105/50 01/06/19 22:15 82 21 101/46 01/06/19 22:09 81 107/43 01/06/19 22:08 88 22 107/43 01/06/19 22:00 81 23 107/43 01/06/19 21:45 84 26 H 105/48 01/06/19 21:30 85 25 H 112/44 01/06/19 21:15 88 28 H 111/55 01/06/19 21:00 83 23 104/53 01/06/19 20:53 85 14 01/06/19 20:46 84 16 01/06/19 20:45 86 24 100/57 01/06/19 20:30 80 23 102/48 01/06/19 20:15 79 23 99/50 01/06/19 20:00 79 22 97/48 01/06/19 19:45 77 25 H 101/49 01/06/19 19:30 84 28 H 99/48 01/06/19 19:15 81 17 95/55 01/06/19 19:00 80 20 97/51 01/06/19 18:45 79 29 H 94/51 01/06/19 18:15 98.8 F 87 20 96/49 01/06/19 17:15 98.6 F 80 20 96/54 01/06/19 17:00 79 20 100/54 01/06/19 16:15 138 H 20 102/64 01/06/19 15:15 137 H 20 96/61 01/06/19 14:00 94 H 18 01/06/19 13:15 98.7 F 136 H 18 100/57 01/06/19 12:15 136 H 18 105/70 Pulse Ox 01/07/19 11:15 01/07/19 11:00 99 01/07/19 10:45 100 01/07/19 10:30 100 01/07/19 10:15 98 01/07/19 10:00 92 01/07/19 09:59 01/07/19 09:45 86 01/07/19 09:30 87 01/07/19 09:15 78 L 01/07/19 09:00 91 01/07/19 08:45 94 01/07/19 08:30 97 01/07/19 08:15 99 01/07/19 08:00 99 01/07/19 07:45 97 01/07/19 07:30 97 01/07/19 07:15 97 01/07/19 07:00 97 01/07/19 06:45 97 01/07/19 06:30 97 01/07/19 06:15 96 01/07/19 06:00 96 01/07/19 05:45 97 01/07/19 05:30 97 01/07/19 05:15 97 01/07/19 05:00 96 01/07/19 04:45 97 01/07/19 04:30 97 01/07/19 04:15 96 01/07/19 04:00 97 01/07/19 03:45 96 01/07/19 03:30 98 01/07/19 03:15 98 01/07/19 03:00 94 01/07/19 02:45 97 01/07/19 02:30 97 01/07/19 02:15 97 01/07/19 02:00 97 01/07/19 01:45 98 01/07/19 01:30 99 01/07/19 01:15 98 01/07/19 01:00 99 01/07/19 00:45 98 01/07/19 00:30 95 01/07/19 00:20 86 01/07/19 00:00 97 01/06/19 23:45 94 01/06/19 23:30 94 01/06/19 23:16 97 01/06/19 23:00 97 01/06/19 22:45 96 01/06/19 22:30 96 01/06/19 22:15 95 01/06/19 22:09 01/06/19 22:08 96 01/06/19 22:00 96 01/06/19 21:45 96 01/06/19 21:30 98 01/06/19 21:15 98 01/06/19 21:00 99 01/06/19 20:53 01/06/19 20:46 98 01/06/19 20:45 100 01/06/19 20:30 98 01/06/19 20:15 99 01/06/19 20:00 99 01/06/19 19:45 98 01/06/19 19:30 93 01/06/19 19:15 94 01/06/19 19:00 84 01/06/19 18:45 88 01/06/19 18:15 95 01/06/19 17:15 98 01/06/19 17:00 98 01/06/19 16:15 97 01/06/19 15:15 96 01/06/19 14:00 01/06/19 13:15 98 01/06/19 12:15 98 - Physical Examination General: No Apparent Distress HEENT: Positive: PERRL Neck: Positive: trachea midline Cardiac: Positive: Reg Rate and Rhythm Lungs: Positive: Decreased Breath Sounds, Wheezes Neuro: Positive: Grossly Intact - Labs and Meds CBC 01/07/19 Range/Units 03:46 WBC 14.9 H (4.5-11.0) K/mm3 RBC 3.68 (3.65-5.03) M/mm3 Hgb 11.9 (11.8-15.2) gm/dl Hct 35.2 L (35.5-45.6) % Plt Count 584 H (140-440) K/mm3 Lymph # 0.8 L (1.2-5.4) K/mm3 Dixon # 1.5 H (0.0-0.8) K/mm3 Eos # 0.0 (0.0-0.4) K/mm3 Baso # 0.0 (0.0-0.1) K/mm3 Comprehensive Metabolic Panel 01/07/19 Range/Units 03:46 Sodium 134 L (137-145) mmol/L Potassium 4.4 (3.6-5.0) mmol/L Chloride 95.1 L (98-107) mmol/L Carbon Dioxide 31 H (22-30) mmol/L BUN 16 (9-20) mg/dL Creatinine 0.5 L (0.8-1.5) mg/dL Glucose 106 H (75-100) mg/dL Calcium 7.6 L (8.4-10.2) mg/dL
--- NOTE | 2019-01-07 12:53 | Progress Note ---
Assessment and Plan Assessment and plan: Sepsis. Patient needs criteria given the tachycardia, leukocytosis and diagnosis of pneumonia. Follow-up blood and urine cultures. Thus far negative. Leukocytosis improving. Bilateral pneumonia. Continue IV antibiotics. Follow serial chest x-ray. AVNRT s/p adenosine Continue amiodarone and changed to by mouth per cardiology recommendations. No evidence of PE on Chest CTA. Well preserved LVEF on echo 01/2018. Small fixed apical wall defect, no reversible ischemia on MPI 01/2018. Cardiology following. Repeat echocardiogram for further assessment pending. Hyponatremia. IV fluid normal saline. Improved. 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 Hypothyroidism. TSH is 9.25. Started Synthroid. Elevated LFTs. Etiology likely secondary to sepsis/hypotension. The high probability of a clinically significant, sudden or life threatening deterioration of the [cardiac, hemodynamic and respiratory] system(s) required my full and direct attention, intervention and personal management. The aggregate critical care time was [32] minutes. This time is in addition to time spent performing reported procedures but includes the following: [x] Data Review and interpretation [x] Patient assessment and monitoring of vital signs [x] Documentation [x] Medication orders and management History Interval history: Patient is a 78 year old male who was brought to the emergency department with complaints of generalized pain. A cardiac consultation was requested for atrial fibrillation. On review, his EKG is wide complex tachycardia consistent with SVT. There is no evidence of atrial fibrillation. The patient was initially started on Cardizem drip but developed hypotension. Amiodarone drip was then initiated. On admission, Initial labs revealed leukocytosis, WBC of 26.5 and severe hyponatremia with a sodium of 123. TSH is 9.25. A chest CTA scan documents an ectatic ascending thoracic aorta measuring 5cm. There are chronic e mphysematous changes. There are diffuse bilateral pulmonary infiltrates. No evidence of pulmonary embolism. Patient has a history of hypothyroidism. Patient also smokes cigarettes. He is known to [facility] and was recently seen by Dr Walker for anticipated carpal tunnel surgery. His latest cardiac workup was done January 2018. He had a stress thallium stress test that reports a small fixed mid apical wall defect with no reversible ischemia and a well preserved left ventricular ejection fraction 55% on an echocardiogram. Cardiology to transition to oral amiodarone for suppression of atrial tachycardia. Repeat echocardiogram for left ventricular function assessment. No new issues overnight. Hospitalist Physical - Constitutional Vitals: Temp Pulse Resp BP Pulse Ox 97.8 F 85 23 117/55 99 01/07/19 05:00 01/07/19 11:15 01/07/19 11:15 01/07/19 11:15 01/07/19 11:00 General appearance: Present: no acute distress - EENT Eyes: Present: PERRL, EOM intact ENT: hearing intact, clear oral mucosa, dentition normal - Neck Neck: Present: supple, normal ROM - Respiratory Respiratory effort: normal Respiratory: bilateral: CTA - Cardiovascular Rhythm: regular Heart Sounds: Present: S1 & S2. Absent: gallop, rub - Extremities Extremities: no ischemia, No edema, Full ROM - Abdominal General gastrointestinal: soft, non-tender, non-distended, normal bowel sounds - Integumentary Integumentary: Present: clear, warm, dry - Neurologic Neurologic: CNII-XII intact, moves all extremities Results - Labs CBC & Chem 7: 01/07/19 03:46 01/07/19 03:46 Labs: Laboratory Last Values WBC 14.9 K/mm3 (4.5-11.0) H 01/07/19 03:46 RBC 3.68 M/mm3 (3.65-5.03) 01/07/19 03:46 Hgb 11.9 gm/dl (11.8-15.2) 01/07/19 03:46 Hct 35.2 % (35.5-45.6) L 01/07/19 03:46 MCV 96 fl (84-94) H 01/07/19 03:46 MCH 32 pg (28-32) 01/07/19 03:46 MCHC 34 % (32-34) 01/07/19 03:46 RDW 15.7 % (13.2-15.2) H 01/07/19 03:46 Plt Count 584 K/mm3 (140-440) H 01/07/19 03:46 Lymph % (Auto) 5.5 % (13.4-35.0) L 01/07/19 03:46 [place] % (Auto) 10.0 % (0.0-7.3) H 01/07/19 03:46 Eos % (Auto) 0.3 % (0.0-4.3) 01/07/19 03:46 Baso % (Auto) 0.3 % (0.0-1.8) 01/07/19 03:46 Lymph # 0.8 K/mm3 (1.2-5.4) L 01/07/19 03:46 [place] # 1.5 K/mm3 (0.0-0.8) H 01/07/19 03:46 Eos # 0.0 K/mm3 (0.0-0.4) 01/07/19 03:46 Baso # 0.0 K/mm3 (0.0-0.1) 01/07/19 03:46 Add Manual Diff Complete 01/05/19 23:16 Total Counted 100 01/05/19 23:16 Seg Neutrophils % 83.9 % (40.0-70.0) H 01/07/19 03:46 Seg Neuts % (Manual) 91.0 % (40.0-70.0) H 01/05/19 23:16 Band Neutrophils % 0 % 01/05/19 23:16 Lymphocytes % (Manual) 4.0 % (13.4-35.0) L 01/05/19 23:16 Reactive Lymphs % (Man) 0 % 01/05/19 23:16 Monocytes % (Manual) 5.0 % (0.0-7.3) 01/05/19 23:16 Eosinophils % (Manual) 0 % (0.0-4.3) 01/05/19 23:16 Basophils % (Manual) 0 % (0.0-1.8) 01/05/19 23:16 Metamyelocytes % 0 % 01/05/19 23:16 Myelocytes % 0 % 01/05/19 23:16 Promyelocytes % 0 % 01/05/19 23:16 Blast Cells % 0 % 01/05/19 23:16 Nucleated RBC % Not Reportable 01/05/19 23:16 Seg Neutrophils # 12.5 K/mm3 (1.8-7.7) H 01/07/19 03:46 Seg Neutrophils # Man 24.1 K/mm3 (1.8-7.7) H 01/05/19 23:16 Band Neutrophils # 0.0 K/mm3 01/05/19 23:16 Lymphocytes # (Manual) 1.1 K/mm3 (1.2-5.4) L 01/05/19 23:16 Abs React Lymphs (Man) 0.0 K/mm3 01/05/19 23:16 Monocytes # (Manual) 1.3 K/mm3 (0.0-0.8) H 01/05/19 23:16 Eosinophils # (Manual) 0.0 K/mm3 (0.0-0.4) 01/05/19 23:16 Basophils # (Manual) 0.0 K/mm3 (0.0-0.1) 01/05/19 23:16 Metamyelocytes # 0.0 K/mm3 01/05/19 23:16 Myelocytes # 0.0 K/mm3 01/05/19 23:16 Promyelocytes # 0.0 K/mm3 01/05/19 23:16 Blast Cells # 0.0 K/mm3 01/05/19 23:16 WBC Morphology Not Reportable 01/05/19 23:16 Hypersegmented Neuts Not Reportable 01/05/19 23:16 Hyposegmented Neuts Not Reportable 01/05/19 23:16 Hypogranular Neuts Not Reportable 01/05/19 23:16 Smudge Cells Not Reportable 01/05/19 23:16 Toxic Granulation Not Reportable 01/05/19 23:16 Toxic Vacuolation Not Reportable 01/05/19 23:16 Dohle Bodies Not Reportable 01/05/19 23:16 Pelger-Huet Anomaly Not Reportable 01/05/19 23:16 Eugenio Rods Not Reportable 01/05/19 23:16 Platelet Estimate Appears increased 01/05/19 23:16 Clumped Platelets Not Reportable 01/05/19 23:16 Plt Clumps, EDTA Not Reportable 01/05/19 23:16 Large Platelets 1+ 01/05/19 23:16 Giant Platelets Not Reportable 01/05/19 23:16 Platelet Satelliting Not Reportable 01/05/19 23:16 Plt Morphology Comment Not Reportable 01/05/19 23:16 RBC Morphology Not Reportable 01/05/19 23:16 Dimorphic RBCs Not Reportable 01/05/19 23:16 Polychromasia Not Reportable 01/05/19 23:16 Hypochromasia Not Reportable 01/05/19 23:16 Poikilocytosis Not Reportable 01/05/19 23:16 Anisocytosis 1+ 01/05/19 23:16 Microcytosis Not Reportable 01/05/19 23:16 Macrocytosis Not Reportable 01/05/19 23:16 Spherocytes Not Reportable 01/05/19 23:16 Pappenheimer Bodies Not Reportable 01/05/19 23:16 Sickle Cells Not Reportable 01/05/19 23:16 Target Cells Few 01/05/19 23:16 Tear Drop Cells Not Reportable 01/05/19 23:16 Ovalocytes 1+ 01/05/19 23:16 Helmet Cells Not Reportable 01/05/19 23:16 [place] Bodies Not Reportable 01/05/19 23:16 [place] Rings Not Reportable 01/05/19 23:16 [place] Cells Not Reportable 01/05/19 23:16 Bite Cells Not Reportable 01/05/19 23:16 Crenated Cell Not Reportable 01/05/19 23:16 Elliptocytes Not Reportable 01/05/19 23:16 Acanthocytes (Spur) Not Reportable 01/05/19 23:16 Rouleaux Not Reportable 01/05/19 23:16 Hemoglobin C Crystals Not Reportable 01/05/19 23:16 Schistocytes Not Reportable 01/05/19 23:16 Malaria parasites Not Reportable 01/05/19 23:16 [place]ick Bodies Not Reportable 01/05/19 23:16 Hem Pathologist Commnt No 01/05/19 23:16 PT 15.6 Sec. (12.2-14.9) H 01/05/19 21:47 INR 1.17 (0.87-1.13) H 01/05/19 21:47 APTT 24.1 Sec. (24.2-36.6) L 01/05/19 21:47 POC ABG pH 7.494 (7.35-7.45) H 01/05/19 22:07 POC ABG pCO2 42.2 (35-45) 01/05/19 22:07 POC ABG HCO3 32.4 (22-26 mml/L) 01/05/19 22:07 POC ABG Total CO2 34 (23-27mmol/L) 01/05/19 22:07 POC ABG O2 Sat 82 01/05/19 22:07 POC ABG Base Excess 9 ((-2) - (+3)mmol/L) 01/05/19 22:07 FiO2 21 % 01/05/19 22:07 Sodium 134 mmol/L (137-145) L 01/07/19 03:46 Potassium 4.4 mmol/L (3.6-5.0) 01/07/19 03:46 Chloride 95.1 mmol/L (98-107) L 01/07/19 03:46 Carbon Dioxide 31 mmol/L (22-30) H 01/07/19 03:46 Anion Gap 12 mmol/L 01/07/19 03:46 BUN 16 mg/dL (9-20) 01/07/19 03:46 Creatinine 0.5 mg/dL (0.8-1.5) L 01/07/19 03:46 Estimated GFR > 60 ml/min 01/07/19 03:46 BUN/Creatinine Ratio 32 % 01/07/19 03:46 Glucose 106 mg/dL (75-100) H 01/07/19 03:46 Calcium 7.6 mg/dL (8.4-10.2) L 01/07/19 03:46 Total Bilirubin 0.80 mg/dL (0.1-1.2) 01/05/19 21:47 AST 115 units/L (5-40) H 01/05/19 21:47 ALT 62 units/L (7-56) H 01/05/19 21:47 Alkaline Phosphatase 168 units/L (35-129) H 01/05/19 21:47 Total Creatine Kinase 45 units/L (55-170) L 01/05/19 21:47 CK-MB (CK-2) 1.3 ng/mL (0.0-4.0) 01/05/19 21:47 CK-MB (CK-2) Rel Index 2.8 (0-4) 01/05/19 21:47 Troponin T < 0.010 ng/mL (0.00-0.029) 01/06/19 18:58 NT-Pro-B Natriuret Pep 8941 pg/mL (0-900) H 01/06/19 07:24 Total Protein 6.6 g/dL (6.3-8.2) 01/05/19 21:47 Albumin 1.5 g/dL (3.9-5) L 01/05/19 21:47 Albumin/Globulin Ratio 0.3 % 01/05/19 21:47 Lipase 32 units/L (13-60) 01/05/19 21:47 TSH 9.270 mlU/mL (0.270-4.200) H 01/06/19 07:24 Free T4 0.76 ng/dL (0.76-1.46) 01/06/19 07:24 Urine Color Yellow (Yellow) 01/05/19 21:39 Urine Turbidity Clear (Clear) 01/05/19 21:39 Urine pH 6.0 (5.0-7.0) 01/05/19 21:39 Ur Specific [place] 1.005 (1.003-1.030) 01/05/19 21:39 Urine Protein <15 mg/dl mg/dL (Negative) 01/05/19 21:39 Urine Glucose (UA) Neg mg/dL (Negative) 01/05/19 21:39 Urine Ketones Neg mg/dL (Negative) 01/05/19 21:39 Urine Blood Neg (Negative) 01/05/19 21:39 Urine Nitrite Neg (Negative) 01/05/19 21:39 Urine Bilirubin Neg (Negative) 01/05/19 21:39 Urine Urobilinogen < 2.0 mg/dL (<2.0) 01/05/19 21:39 Ur Leukocyte Esterase Neg (Negative) 01/05/19 21:39 Urine WBC (Auto) 1.0 /HPF (0.0-6.0) 01/05/19 21:39 Urine RBC (Auto) 1.0 /HPF (0.0-6.0) 01/05/19 21:39 Urine Mucus Few /HPF 01/05/19 21:39 Active Medications - Current Medications Current Medications: Generic Name Dose Route Start Last Admin Trade Name Freq PRN Reason Stop Dose Admin Acetaminophen 650 mg 01/06/19 01:50 01/07/19 09:59 Tylenol PO 650 mg Q4H PRN Administration Pain, Mild (1-3) Albuterol/Ipratropium 1 ampul 01/06/19 03:45 01/06/19 20:48 Duoneb *Not For Prn Use* IH 1 ampul Q6HRT JONI Administration Aspirin 81 mg 01/06/19 10:00 01/06/19 10:50 Halfprin Ec PO 81 mg DAILY JONI Administration Ferrous Sulfate 325 mg 01/06/19 10:00 01/06/19 09:40 Feosol PO 325 mg DAILY JONI Administration Heparin Sodium (Porcine) 5,000 unit 01/06/19 10:00 01/06/19 22:13 Heparin SUB-Q 5,000 unit Q12HR JONI Administration Piperacillin Sod/Tazobactam Sod 3.375 gm in 50 mls @ 100 mls/hr 01/06/19 06:00 01/07/19 06:02 Zosyn/Ns 3.375gm/50ml IV 100 mls/hr Q8HR JONI Administration Protocol Sodium Chloride 1,000 mls @ 75 mls/hr 01/06/19 05:00 01/06/19 05:16 Nacl 0.9% 1000 Ml IV 75 mls/hr DIRECT JONI Administration Amiodarone HCl 900 mg/ 500 mls @ 33.333 mls/hr 01/06/19 09:00 01/07/19 07:38 Dextrose IV 0.5 mg/min DIRECT JONI 16.667 mls/hr Infusion Protocol 1 MG/MIN Levothyroxine Sodium 112 mcg 01/06/19 06:00 01/07/19 07:37 Synthroid PO 112 mcg DAILY@0600 JONI Administration Lisinopril 5 mg 01/06/19 22:00 01/06/19 22:09 Zestril PO Not Given HS JONI Lorazepam 1 mg 01/06/19 01:57 01/06/19 02:56 Ativan IV 1 mg Q4H PRN Administration Anxiety Ondansetron HCl 4 mg 01/06/19 01:52 Zofran IV Q8H PRN Nausea And Vomiting Zolpidem Tartrate 5 mg 01/06/19 23:57 01/07/19 00:37 Ambien PO 5 mg QHS PRN Administration Sleep
[2019-01-07] MEDS: NACL 0.9% 1000 ML 1,000 ML IV SCH (15:20)
[2019-01-07] MEDS: FEOSOL PO SCH (15:21)
[2019-01-07] MEDS: HEPARIN SUB-Q SCH ×2 (15:21→21:47)
[2019-01-07] MEDS: HALFPRIN EC PO SCH (15:22)
[2019-01-07] MEDS: CORDARONE 900 MG in D5W 482 ML IV SCH (15:30)
[2019-01-07] MEDS: DUONEB *Not for PRN Use IH SCH (19:38)
[2019-01-07] MEDS: ZESTRIL PO SCH (21:46)
[2019-01-07] MEDS: NORCO 5/325 PO PRN (21:52)
[2019-01-08] MEDS: AMBIEN PO PRN ×2 (01:54→22:42)
[2019-01-08] MEDS: TYLENOL PO PRN (01:54)
[2019-01-08] MEDS: NACL 0.9% 1000 ML 1,000 ML IV SCH ×2 (01:55→12:16)
[2019-01-08] MEDS: DUONEB *Not for PRN Use IH SCH ×6 (04:25→21:05)
[2019-01-08] MEDS: SYNTHROID PO SCH (06:04)
[2019-01-08] MEDS: NORCO 5/325 PO PRN ×3 (06:04→22:43)
[2019-01-08] MEDS: ZOSYN/NS 3.375GM/50ML 3.375 GM/50 ML BAG IV SCH ×3 (06:05→22:44)
[2019-01-08 06:32] LABS: Hematocrit 36.9 % (35.5-45.6); Hemoglobin 12.2 gm/dl (11.8-15.2); Mean Corpuscular HGB Conc 33 % (32-34); Mean Corpuscular Volume 97 fl (84-94); Platelet Count 621 K/mm3 (140-440); Red Blood Count 3.82 M/mm3 (3.65-5.03); Red Cell Distribution Width 15.9 % (13.2-15.2)
[2019-01-08 06:55] LABS: BUN/Creatinine Ratio 26; Blood Urea Nitrogen 13 mg/dL (9-20); Calcium 7.4 mg/dL (8.4-10.2); Hemolysis Index 5
[2019-01-08] MEDS: FEOSOL PO SCH (09:42)
[2019-01-08] MEDS: HEPARIN SUB-Q SCH ×2 (09:42→22:44)
[2019-01-08] MEDS: HALFPRIN EC PO SCH (09:42)
[2019-01-08] MEDS ORDERED: CORDARONE PO SCH (10:00)
[2019-01-08 11:08] LABS: Basophils % (Manual) 0 % (0.0-1.8); Eosinophils % (Manual) 0 % (0.0-4.3); Macrocytosis Few; Platelet Estimate Consistent w Auto; Total Cells Counted 100
[2019-01-08 11:39] LABS: Basophils # (Auto) 0.1 K/mm3 (0.0-0.1); Eosinophils % (Auto) 0.2 % (0.0-4.3); Monocytes # (Auto) 1.4 K/mm3 (0.0-0.8); Monocytes % (Auto) 9.7 % (0.0-7.3)
--- NOTE | 2019-01-08 13:22 | Progress Note ---
Assessment and Plan Generalized pain -chief complaint AVNRT s/p adenosine Hypothyroidism Pneumonia Severe hyponatremia Elevated liver transaminase Chronic lung disease Tobacco abuse Chest CTA documents an ectatic ascending thoracic aorta measuring 5cm. There are chronic emphysematous changes. There are diffuse bilateral pulmonary infiltrates. No evidence of pulmonary embolism. An echocardiogram this admission reveals moderate aortic valve calcification with moderate to severe aortic stenosis. Left ventricular systolic function is normal, EF 60%. Small fixed apical wall defect, no reversible ischemia on MPI done 01/2018. Subjective Date of service: 01/08/19 Interval history: Patient is resting in bed comfortably. He has no complaints. Wants to go home. Stable sinus rhythm on telemetry. Objective Vital Signs Temp Pulse Pulse Pulse Resp Resp BP 01/08/19 12:47 98.2 F 01/08/19 10:52 01/08/19 10:45 83 18 01/08/19 09:16 97.8 F 01/08/19 09:14 83 20 110/58 01/08/19 09:13 97.8 F 01/08/19 06:04 20 01/08/19 04:08 98.1 F 81 18 111/52 01/08/19 01:43 74 01/08/19 01:30 76 01/08/19 00:50 100/53 01/08/19 00:41 76 17 100/53 01/08/19 00:30 73 18 100/53 01/08/19 00:21 76 17 102/51 01/08/19 00:11 84 20 102/51 01/08/19 00:00 73 19 102/51 01/07/19 23:51 75 16 103/56 01/07/19 23:41 72 20 105/51 01/07/19 23:30 73 18 105/51 01/07/19 23:21 69 17 103/56 01/07/19 23:11 73 20 103/56 01/07/19 23:00 77 21 103/56 01/07/19 22:51 74 18 110/59 01/07/19 22:41 74 16 101/50 01/07/19 22:30 75 23 101/50 01/07/19 22:21 78 19 107/50 01/07/19 22:10 75 16 110/59 01/07/19 22:00 75 14 110/59 01/07/19 21:51 75 18 111/59 20/ 21:46 72 111/59 01/07/19 21:41 78 14 102/51 20/ 21:30 78 18 107/50 01/07/ 21:21 75 19 102/51 20/19 21:13 73 22 102/51 01/07/ 21:11 76 18 102/51 20/ 21:05 77 23 102/51 01/07/ 21:00 76 13 102/51 01/07/ 20:51 77 25 H 108/55 20/ 20:41 78 22 108/55 01/07/ 20:30 78 25 H 108/55 01/07/19 20:21 76 18 107/53 01/07/19 20:11 80 16 107/53 01/07/19 20:00 100.2 F H 77 19 107/53 01/07/19 19:51 77 16 107/54 01/07/19 19:47 80 21 01/07/19 19:41 77 16 107/54 01/07/19 19:38 76 21 01/07/19 19:30 76 22 107/54 01/07/ 19:21 89 20 114/57 19 19:11 78 22 114/57 01/07/19 19:01 87 27 H 114/57 01/07/19 18:51 89 20 98/48 01/07/ 18:41 79 23 98/48 01/07/ 18:31 80 92/47 01/07/ 18:21 80 92/47 01/07/19 18:11 29 H 92/47 01/07/19 18:00 85 26 H 92/47 20/19 17:51 83 19 104/55 20/19 17:41 74 24 104/55 20/19 17:31 80 26 H 104/55 20/19 17:21 75 18 104/55 20/19 17:11 75 22 104/55 20/19 17:00 74 16 104/55 20/ 16:51 86 22 106/53 /20/19 16:41 78 14 106/53 20/19 16:31 75 27 H 106/53 20/19 16:21 74 25 H 106/53 03/20/19 16:11 82 20 106/53 01/07/19 16:00 71 80 17 106/53 01/07/19 15:51 76 18 102/49 01/07/19 15:41 78 20 102/49 01/07/19 15:31 85 21 102/49 01/07/19 15:21 77 27 H 102/49 01/07/19 15:11 82 15 102/49 01/07/19 15:00 77 21 102/49 01/07/19 14:51 70 19 108/56 01/07/19 14:41 74 26 H 108/56 01/07/19 14:31 75 21 108/56 01/07/19 14:21 78 16 108/56 01/07/19 14:11 74 18 108/56 01/07/19 14:00 74 20 108/56 01/07/19 13:51 80 18 01/07/19 13:40 79 19 01/07/19 13:30 79 21 104/56 01/07/19 13:24 73 26 H 104/56 Pulse Ox 01/08/19 12:47 01/08/19 10:52 91 01/08/19 10:45 01/08/19 09:16 01/08/19 09:14 92 01/08/19 09:13 01/08/19 06:04 01/08/19 04:08 93 01/08/19 01:43 96 01/08/19 01:30 01/08/19 00:50 94 01/08/19 00:41 93 01/08/19 00:30 94 01/08/19 00:21 93 01/08/19 00:11 91 01/08/19 00:00 94 01/07/19 23:51 91 01/07/19 23:41 91 01/07/19 23:30 90 01/07/19 23:21 90 01/07/19 23:11 92 01/07/19 23:00 91 01/07/19 22:51 93 01/07/19 22:41 93 01/07/19 22:30 94 01/07/19 22:21 93 01/07/19 22:10 94 01/07/19 22:00 94 01/07/19 21:51 94 01/07/19 21:46 01/07/19 21:41 94 01/07/19 21:30 94 01/07/19 21:21 92 01/07/19 21:13 94 01/07/19 21:11 92 01/07/19 21:05 91 01/07/19 21:00 92 01/07/19 20:51 90 01/07/19 20:41 91 01/07/19 20:30 91 01/07/19 20:21 90 01/07/19 20:11 90 01/07/19 20:00 92 01/07/19 19:51 90 01/07/19 19:47 01/07/19 19:41 91 01/07/19 19:38 94 01/07/19 19:30 93 01/07/19 19:21 93 01/07/19 19:11 93 01/07/19 19:01 94 01/07/19 18:51 94 01/07/19 18:41 92 01/07/19 18:31 88 01/07/19 18:21 88 01/07/19 18:11 91 01/07/19 18:00 01/07/19 17:51 89 01/07/19 17:41 88 01/07/19 17:31 89 01/07/19 17:21 89 01/07/19 17:11 89 01/07/19 17:00 87 01/07/19 16:51 88 01/07/19 16:41 90 01/07/19 16:31 90 01/07/19 16:21 86 01/07/19 16:11 89 01/07/19 16:00 87 01/07/19 15:51 88 01/07/19 15:41 86 01/07/19 15:31 91 01/07/19 15:21 90 01/07/19 15:11 94 01/07/19 15:00 93 01/07/19 14:51 97 01/07/19 14:41 95 01/07/19 14:31 94 01/07/19 14:21 94 01/07/19 14:11 96 01/07/19 14:00 94 01/07/19 13:51 94 01/07/19 13:40 95 01/07/19 13:30 93 01/07/19 13:24 91 - Physical Examination General: No Apparent Distress HEENT: Positive: PERRL Neck: Positive: trachea midline Cardiac: Positive: Reg Rate and Rhythm Lungs: Positive: Decreased Breath Sounds Neuro: Positive: Grossly Intact Extremities: Absent: edema - Labs and Meds CBC 01/08/19 Range/Units 06:14 WBC 14.8 H (4.5-11.0) K/mm3 RBC 3.82 (3.65-5.03) M/mm3 Hgb 12.2 (11.8-15.2) gm/dl Hct 36.9 (35.5-45.6) % Plt Count 621 H (140-440) K/mm3 [place] # 1.4 H (0.0-0.8) K/mm3 Eos # 0.0 (0.0-0.4) K/mm3 Baso # 0.1 (0.0-0.1) K/mm3 Comprehensive Metabolic Panel 01/08/19 Range/Units 06:14 Sodium 133 L (137-145) mmol/L Potassium 4.9 (3.6-5.0) mmol/L Chloride 94.5 L (98-107) mmol/L Carbon Dioxide 30 (22-30) mmol/L BUN 13 (9-20) mg/dL Creatinine 0.5 L (0.8-1.5) mg/dL Glucose 107 H (75-100) mg/dL Calcium 7.4 L (8.4-10.2) mg/dL
--- NOTE | 2019-01-08 14:45 | Progress Note ---
Assessment and Plan Assessment and plan: Sepsis. Patient needs criteria given the tachycardia, leukocytosis and diagnosis of pneumonia. Follow-up blood and urine cultures. Thus far negative. Leukocytosis improving. Bilateral pneumonia. Continue IV antibiotics. Follow serial chest x-ray. Chronic lung disease/COPD. Compensated. Acute hypoxemic respiratory failure. Etiology secondary to above. Chest CTA documents an ectatic ascending thoracic aorta measuring 5cm. There are chronic emphysematous changes. There are diffuse bilateral pulmonary infiltrates. No evidence of pulmonary embolism. SVT/atrial tachycardia. Resolved. Patient previously S/p adenosine Continue amiodarone by mouth per cardiology recommendations. No evidence of PE on Chest CTA. Well preserved LVEF on echo 01/2018. Small fixed apical wall defect, no reversible ischemia on MPI 01/2018. Cardiology following. Repeat echocardiogram for further assessment pending. Hyponatremia. Improved. 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 Hypothyroidism. TSH is 9.25. Continue Synthroid. Elevated LFTs. Etiology likely secondary to sepsis/hypotension. History Interval history: Patient is a 78 year old male who was brought to the emergency department with complaints of generalized pain. A cardiac consultation was requested for atrial fibrillation. On review, his EKG is wide complex tachycardia consistent with SVT. There is no evidence of atrial fibrillation. The patient was initially started on Cardizem drip but developed hypotension. Amiodarone drip was then initiated. On admission, Initial labs revealed leukocytosis, WBC of 26.5 and severe hyponatremia with a sodium of 123. TSH is 9.25. A chest CTA scan documents an ectatic ascending thoracic aorta measuring 5cm. There are chronic emphysematous changes. There are diffuse bilateral pulmonary infiltrates. No evidence of pulmonary embolism. Patient has a history of hypothyroidism. Patient also smokes cigarettes. He is known to [facility] and was recently seen by Dr Walker for anticipated carpal tunnel surgery. His latest cardiac workup was done January 2018. He had a stress thallium stress test that reports a small fixed mid apical wall defect with no reversible ischemia and a well preserved left ventricular ejection fraction 55% on an echocardiogram. Cardiology to transition to oral amiodarone for suppression of atrial tachycardia. Repeat echocardiogram for left ventricular function assessment. No new issues overnight. Hospitalist Physical - Constitutional Vitals: Temp Pulse Resp BP Pulse Ox 98.2 F 83 18 110/58 91 01/08/19 12:47 01/08/19 10:45 01/08/19 10:45 01/08/19 09:14 01/08/19 10:52 General appearance: Present: no acute distress - EENT Eyes: Present: PERRL, EOM intact ENT: hearing intact, clear oral mucosa, dentition normal - Neck Neck: Present: supple, normal ROM - Respiratory Respiratory effort: normal Respiratory: bilateral: CTA - Cardiovascular Rhythm: regular Heart Sounds: Present: S1 & S2. Absent: gallop, rub - Extremities Extremities: no ischemia, No edema, Full ROM - Abdominal General gastrointestinal: soft, non-tender, non-distended, normal bowel sounds - Integumentary Integumentary: Present: clear, warm, dry - Neurologic Neurologic: CNII-XII intact, moves all extremities Results - Labs CBC & Chem 7: 01/08/19 06:14 01/08/19 06:14 Labs: Laboratory Last Values WBC 14.8 K/mm3 (4.5-11.0) H 01/08/19 06:14 RBC 3.82 M/mm3 (3.65-5.03) 01/08/19 06:14 Hgb 12.2 gm/dl (11.8-15.2) 01/08/19 06:14 Hct 36.9 % (35.5-45.6) 01/08/19 06:14 MCV 97 fl (84-94) H 01/08/19 06:14 MCH 32 pg (28-32) 01/08/19 06:14 MCHC 33 % (32-34) 01/08/19 06:14 RDW 15.9 % (13.2-15.2) H 01/08/19 06:14 Plt Count 621 K/mm3 (140-440) H 01/08/19 06:14 Lymph % (Auto) 5.5 % (13.4-35.0) L 01/07/19 03:46 [place] % (Auto) 9.7 % (0.0-7.3) H 01/08/19 06:14 Eos % (Auto) 0.2 % (0.0-4.3) 01/08/19 06:14 Baso % (Auto) 0.3 % (0.0-1.8) 01/07/19 03:46 Lymph # 0.8 K/mm3 (1.2-5.4) L 01/07/19 03:46 [place] # 1.4 K/mm3 (0.0-0.8) H 01/08/19 06:14 Eos # 0.0 K/mm3 (0.0-0.4) 01/08/19 06:14 Baso # 0.1 K/mm3 (0.0-0.1) 01/08/19 06:14 Add Manual Diff Complete 01/08/19 06:14 Total Counted 100 01/08/19 06:14 Seg Neutrophils % 84.1 % (40.0-70.0) H 01/08/19 06:14 Seg Neuts % (Manual) 87.0 % (40.0-70.0) H 01/08/19 06:14 Band Neutrophils % 0 % 01/08/19 06:14 Lymphocytes % (Manual) 6.0 % (13.4-35.0) L 01/08/19 06:14 Reactive Lymphs % (Man) 0 % 01/08/19 06:14 Monocytes % (Manual) 7.0 % (0.0-7.3) 01/08/19 06:14 Eosinophils % (Manual) 0 % (0.0-4.3) 01/08/19 06:14 Basophils % (Manual) 0 % (0.0-1.8) 01/08/19 06:14 Metamyelocytes % 0 % 01/08/19 06:14 Myelocytes % 0 % 01/08/19 06:14 Promyelocytes % 0 % 01/08/19 06:14 Blast Cells % 0 % 01/08/19 06:14 Nucleated RBC % Not Reportable 01/08/19 06:14 Seg Neutrophils # 12.4 K/mm3 (1.8-7.7) H 01/08/19 06:14 Seg Neutrophils # Man 12.9 K/mm3 (1.8-7.7) H 01/08/19 06:14 Band Neutrophils # 0.0 K/mm3 01/08/19 06:14 Lymphocytes # (Manual) 0.9 K/mm3 (1.2-5.4) L 01/08/19 06:14 Abs React Lymphs (Man) 0.0 K/mm3 01/08/19 06:14 Monocytes # (Manual) 1.0 K/mm3 (0.0-0.8) H 01/08/19 06:14 Eosinophils # (Manual) 0.0 K/mm3 (0.0-0.4) 01/08/19 06:14 Basophils # (Manual) 0.0 K/mm3 (0.0-0.1) 01/08/19 06:14 Metamyelocytes # 0.0 K/mm3 01/08/19 06:14 Myelocytes # 0.0 K/mm3 01/08/19 06:14 Promyelocytes # 0.0 K/mm3 01/08/19 06:14 Blast Cells # 0.0 K/mm3 01/08/19 06:14 WBC Morphology Not Reportable 01/08/19 06:14 Hypersegmented Neuts Not Reportable 01/08/19 06:14 Hyposegmented Neuts Not Reportable 01/08/19 06:14 Hypogranular Neuts Not Reportable 01/08/19 06:14 Smudge Cells Not Reportable 01/08/19 06:14 Toxic Granulation Not Reportable 01/08/19 06:14 Toxic Vacuolation Not Reportable 01/08/19 06:14 Dohle Bodies Not Reportable 01/08/19 06:14 Pelger-Huet Anomaly Not Reportable 01/08/19 06:14 Eugenio Rods Not Reportable 01/08/19 06:14 Platelet Estimate Consistent w auto 01/08/19 06:14 Clumped Platelets Not Reportable 01/08/19 06:14 Plt Clumps, EDTA Not Reportable 01/08/19 06:14 Large Platelets Not Reportable 01/08/19 06:14 Giant Platelets Not Reportable 01/08/19 06:14 Platelet Satelliting Not Reportable 01/08/19 06:14 Plt Morphology Comment Not Reportable 01/08/19 06:14 RBC Morphology Not Reportable 01/08/19 06:14 Dimorphic RBCs Not Reportable 01/08/19 06:14 Polychromasia Not Reportable 01/08/19 06:14 Hypochromasia Not Reportable 01/08/19 06:14 Poikilocytosis Not Reportable 01/08/19 06:14 Anisocytosis Not Reportable 01/08/19 06:14 Microcytosis Not Reportable 01/08/19 06:14 Macrocytosis Few 01/08/19 06:14 Spherocytes Not Reportable 01/08/19 06:14 Pappenheimer Bodies Not Reportable 01/08/19 06:14 Sickle Cells Not Reportable 01/08/19 06:14 Target Cells Not Reportable 01/08/19 06:14 Tear Drop Cells Not Reportable 01/08/19 06:14 Ovalocytes Not Reportable 01/08/19 06:14 Helmet Cells Not Reportable 01/08/19 06:14 [place] Bodies Not Reportable 01/08/19 06:14 [place] Rings Not Reportable 01/08/19 06:14 [place] Cells Not Reportable 01/08/19 06:14 Bite Cells Not Reportable 01/08/19 06:14 Crenated Cell Not Reportable 01/08/19 06:14 Elliptocytes Not Reportable 01/08/19 06:14 Acanthocytes (Spur) Not Reportable 01/08/19 06:14 Rouleaux Not Reportable 01/08/19 06:14 Hemoglobin C Crystals Not Reportable 01/08/19 06:14 Schistocytes Not Reportable 01/08/19 06:14 Malaria parasites Not Reportable 01/08/19 06:14 Derick Bodies Not Reportable 01/08/19 06:14 Hem Pathologist Commnt No 01/08/19 06:14 PT 15.6 Sec. (12.2-14.9) H 01/05/19 21:47 INR 1.17 (0.87-1.13) H 01/05/19 21:47 APTT 24.1 Sec. (24.2-36.6) L 01/05/19 21:47 POC ABG pH 7.446 (7.35-7.45) 01/07/19 21:09 POC ABG pCO2 44.1 (35-45) 01/07/19 21:09 POC ABG pO2 55 (80-105) L 01/07/19 21:09 POC ABG HCO3 30.4 (22-26 mml/L) 01/07/19 21:09 POC ABG Total CO2 32 (23-27mmol/L) 01/07/19 21:09 POC ABG O2 Sat 89 01/07/19 21:09 POC ABG Base Excess 6 ((-2) - (+3)mmol/L) 01/07/19 21:09 FiO2 32 % 01/07/19 21:09 Sodium 133 mmol/L (137-145) L 01/08/19 06:14 Potassium 4.9 mmol/L (3.6-5.0) 01/08/19 06:14 Chloride 94.5 mmol/L (98-107) L 01/08/19 06:14 Carbon Dioxide 30 mmol/L (22-30) 01/08/19 06:14 Anion Gap 13 mmol/L 01/08/19 06:14 BUN 13 mg/dL (9-20) 01/08/19 06:14 Creatinine 0.5 mg/dL (0.8-1.5) L 01/08/19 06:14 Estimated GFR > 60 ml/min 01/08/19 06:14 BUN/Creatinine Ratio 26 % 01/08/19 06:14 Glucose 107 mg/dL (75-100) H 01/08/19 06:14 Calcium 7.4 mg/dL (8.4-10.2) L 01/08/19 06:14 Total Bilirubin 0.80 mg/dL (0.1-1.2) 01/05/19 21:47 AST 115 units/L (5-40) H 01/05/19 21:47 ALT 62 units/L (7-56) H 01/05/19 21:47 Alkaline Phosphatase 168 units/L (35-129) H 01/05/19 21:47 Total Creatine Kinase 45 units/L (55-170) L 01/05/19 21:47 CK-MB (CK-2) 1.3 ng/mL (0.0-4.0) 01/05/19 21:47 CK-MB (CK-2) Rel Index 2.8 (0-4) 01/05/19 21:47 Troponin T < 0.010 ng/mL (0.00-0.029) 01/06/19 18:58 NT-Pro-B Natriuret Pep 8941 pg/mL (0-900) H 01/06/19 07:24 Total Protein 6.6 g/dL (6.3-8.2) 01/05/19 21:47 Albumin 1.5 g/dL (3.9-5) L 01/05/19 21:47 Albumin/Globulin Ratio 0.3 % 01/05/19 21:47 Lipase 32 units/L (13-60) 01/05/19 21:47 TSH 9.270 mlU/mL (0.270-4.200) H 01/06/19 07:24 Free T4 0.76 ng/dL (0.76-1.46) 01/06/19 07:24 Urine Color Yellow (Yellow) 01/05/19 21:39 Urine Turbidity Clear (Clear) 01/05/19 21:39 Urine pH 6.0 (5.0-7.0) 01/05/19 21:39 Ur Specific [place] 1.005 (1.003-1.030) 01/05/19 21:39 Urine Protein <15 mg/dl mg/dL (Negative) 01/05/19 21:39 Urine Glucose (UA) Neg mg/dL (Negative) 01/05/19 21:39 Urine Ketones Neg mg/dL (Negative) 01/05/19 21:39 Urine Blood Neg (Negative) 01/05/19 21:39 Urine Nitrite Neg (Negative) 01/05/19 21:39 Urine Bilirubin Neg (Negative) 01/05/19 21:39 Urine Urobilinogen < 2.0 mg/dL (<2.0) 01/05/19 21:39 Ur Leukocyte Esterase Neg (Negative) 01/05/19 21:39 Urine WBC (Auto) 1.0 /HPF (0.0-6.0) 01/05/19 21:39 Urine RBC (Auto) 1.0 /HPF (0.0-6.0) 01/05/19 21:39 Urine Mucus Few /HPF 01/05/19 21:39 Active Medications - Current Medications Current Medications: Generic Name Dose Route Start Last Admin Trade Name Freq PRN Reason Stop Dose Admin Acetaminophen 650 mg 01/06/19 01:50 01/08/19 01:54 Tylenol PO 650 mg Q4H PRN Administration Pain, Mild (1-3) Acetaminophen/Hydrocodone Bitart 1 each 01/07/19 21:36 01/08/19 12:14 [place] 5/325 PO 1 each Q6H PRN Administration Pain, Moderate (4-6) Albuterol/Ipratropium 1 ampul 01/06/19 03:45 01/08/19 10:45 Duoneb *Not For Prn Use* IH 1 ampul Q6HRT JONI Administration Amiodarone HCl 200 mg 01/09/19 10:00 Cordarone PO QDAY JONI Aspirin 81 mg 01/06/19 10:00 01/08/19 09:42 Halfprin Ec PO 81 mg DAILY JONI Administration Diltiazem HCl 180 mg 01/09/19 10:00 Cardizem Cd PO QDAY [facility] Ferrous Sulfate 325 mg 01/06/19 10:00 01/08/19 09:42 Feosol PO 325 mg DAILY JONI Administration Heparin Sodium (Porcine) 5,000 unit 01/06/19 10:00 01/08/19 09:42 Heparin SUB-Q 5,000 unit Q12HR JONI Administration Piperacillin Sod/Tazobactam Sod 3.375 gm in 50 mls @ 100 mls/hr 01/06/19 06:00 01/08/19 06:05 Zosyn/Ns 3.375gm/50ml IV 100 mls/hr Q8HR JONI Administration Protocol Sodium Chloride 1,000 mls @ 75 mls/hr 01/06/19 05:00 01/08/19 12:16 Nacl 0.9% 1000 Ml IV 75 mls/hr DIRECT JONI Administration Levothyroxine Sodium 112 mcg 01/06/19 06:00 01/08/19 06:04 Synthroid PO 112 mcg DAILY@0600 JONI Administration Lisinopril 5 mg 01/06/19 22:00 01/07/19 21:46 Zestril PO Not Given HS [facility] Lorazepam 1 mg 01/06/19 01:57 01/06/19 02:56 Ativan IV 1 mg Q4H PRN Administration Anxiety Ondansetron HCl 4 mg 01/06/19 01:52 Zofran IV Q8H PRN Nausea And Vomiting Zolpidem Tartrate 5 mg 01/06/19 23:57 01/08/19 01:54 Ambien PO 5 mg QHS PRN Administration Sleep
--- NOTE | 2019-01-08 14:46 | Progress Note ---
Assessment and Plan Acute Hypoxemic Respiratory Failure Bilateral pneumonia Acute COPD exacerbation Bilateral Pleural Effusions CMOP (HFpEF) Aortic Stenosis SVT Hyponatremia Hypothyroidism Elevated LFTs - follow lower extremity doppler report - wean supplemental oxygen to keep sat's > 90% - continue bronchodilators with pulmonary hygiene per RT - add LABA & ICS (Brovana & pulmicort) - send sputum for gm stain C&S - tobacco Abstinence strongly counseled - continue empiric Zosyn - get CRP level and if unremarkable will de-escalate AB's - add Levaquin for atypical coverage & double GNC in light of structural lung diseas - discussed care plan with attending and patients wishes but adviced he remain till discharged - management per cardiology - add GI prophylaxis and continue VTE prophylaxis with heparin - gentle diuresis for pulmonary edema componentt re: GGO's on CTA (will give 2 doses of lasix 20mg IV and reassess) - send sputum C&S - continue other care per attending / other consultants ... re-evaluate in am & prn Subjective Date of service: 01/08/19 Principal diagnosis: Acute Hypoxemic Resp Failure; [place]. PNA; AE-COPD; [place]. Pleural Effusions Interval history: Patient is seen today for: Acute Hypoxemic Respiratory Failure; Bilateral pneumonia; Acute COPD exacerbation; Bilateral Pleural Effusions; CMOP (HFpEF); Aortic Stenosis; SVT Seen and examined at bedside; 24hour events reviewed; nursing and respiratory care staff consulted; no adverse overnight events reported to me; resting peacefullly in bed; remains on supplemental oxygen; wants to go home kennedy says his is sick; No N/V/F/C; + right lower ext swelling noted Objective Vital Signs - 12hr 01/08/19 01/08/19 01/08/19 04:08 06:04 09:13 Temperature 98.1 F 97.8 F Pulse Rate 81 Pulse Rate [ Anterior Bilateral Throughout] Respiratory 18 20 Rate Respiratory Rate [Anterior Bilateral Throughout] Blood Pressure 111/52 O2 Sat by Pulse 93 Oximetry 01/08/19 01/08/19 01/08/19 09:14 09:16 10:45 Temperature 97.8 F Pulse Rate 83 Pulse Rate [ 83 Anterior Bilateral Throughout] Respiratory 20 Rate Respiratory 18 Rate [Anterior Bilateral Throughout] Blood Pressure 110/58 O2 Sat by Pulse 92 Oximetry 01/08/19 01/08/19 10:52 12:47 Temperature 98.2 F Pulse Rate Pulse Rate [ Anterior Bilateral Throughout] Respiratory Rate Respiratory Rate [Anterior Bilateral Throughout] Blood Pressure O2 Sat by Pulse 91 Oximetry Constitutional: no acute distress, alert, other (elderly looking CM, normocephalic and atraumatic with mildly increased resp effort at rest) Eyes: non-icteric ENT: oropharynx moist Neck: supple, no lymphadenopathy Effort: mildly labored Ascultation: Bilateral: diminished breath sounds, rhonchi Percussion: Bilateral: not dull Cardiovascular: regular rate and rhythm Gastrointestinal: normoactive bowel sounds, soft, non-tender, non-distended Integumentary: normal, rash Extremities: no cyanosis, pink and warm, pulses normal, no ischemia or petechiae, edema (Right lower extremity) Neurologic: other (Patient sleeping at this time.) Psychiatric: mood appropriate, affect normal CBC and BMP: 01/08/19 06:14 01/08/19 06:14 ABG, PT/INR, D-dimer: ABG POC ABG pH 7.446 (7.35-7.45) 01/07/19 21:09 POC ABG pCO2 44.1 (35-45) 01/07/19 21:09 POC ABG pO2 55 (80-105) L 01/07/19 21:09 POC ABG HCO3 30.4 (22-26 mml/L) 01/07/19 21:09 POC ABG Total CO2 32 (23-27mmol/L) 01/07/19 21:09 POC ABG O2 Sat 89 01/07/19 21:09 PT/INR, D-dimer PT 15.6 Sec. (12.2-14.9) H 01/05/19 21:47 INR 1.17 (0.87-1.13) H 01/05/19 21:47 Abnormal lab findings: Abnormal Labs 01/05/19 01/05/1918 21:47 21:47 21:47 WBC Hct MCV RDW Plt Count Lymph % (Auto) [place] % (Auto) Lymph # [place] # Seg Neutrophils % Seg Neuts % (Manual) Lymphocytes % (Manual) Seg Neutrophils # Seg Neutrophils # Man Lymphocytes # (Manual) Monocytes # (Manual) PT 15.6 H INR 1.17 H APTT 24.1 L POC ABG pH POC ABG pO2 Sodium 123 L Potassium 7.7 H* Chloride 85.4 L Carbon Dioxide Creatinine 0.6 L Glucose Calcium 7.8 L AST 115 H ALT 62 H Alkaline Phosphatase 168 H Total Creatine Kinase 45 L NT-Pro-B Natriuret Pep Albumin 1.5 L TSH 01/05/19 01/05/19 01/06/19 22:07 23:16 02:16 WBC 26.5 H Hct MCV 95 H RDW 15.6 H Plt Count 560 H Lymph % (Auto) [place] % (Auto) Lymph # [place] # Seg Neutrophils % Seg Neuts % (Manual) 91.0 H Lymphocytes % (Manual) 4.0 L Seg Neutrophils # Seg Neutrophils # Man 24.1 H Lymphocytes # (Manual) 1.1 L Monocytes # (Manual) 1.3 H PT INR APTT POC ABG pH 7.494 H POC ABG pO2 Sodium 131 L D Potassium Chloride 94.0 L Carbon Dioxide Creatinine 0.5 L Glucose 122 H Calcium 7.3 L AST ALT Alkaline Phosphatase Total Creatine Kinase NT-Pro-B Natriuret Pep Albumin TSH 01/06/19 01/06/19 01/06/19 07:24 07:24 07:24 WBC Hct MCV RDW Plt Count Lymph % (Auto) [place] % (Auto) Lymph # [place] # Seg Neutrophils % Seg Neuts % (Manual) Lymphocytes % (Manual) Seg Neutrophils # Seg Neutrophils # Man Lymphocytes # (Manual) Monocytes # (Manual) PT INR APTT POC ABG pH POC ABG pO2 Sodium 132 L Potassium Chloride 96.3 L Carbon Dioxide Creatinine 0.5 L Glucose Calcium 7.4 L AST ALT Alkaline Phosphatase Total Creatine Kinase NT-Pro-B Natriuret Pep 8941 H Albumin TSH 9.270 H 01/07/19 01/07/19 01/07/19 03:46 03:46 21:09 WBC 14.9 H Hct 35.2 L MCV 96 H RDW 15.7 H Plt Count 584 H Lymph % (Auto) 5.5 L [place] % (Auto) 10.0 H Lymph # 0.8 L [place] # 1.5 H Seg Neutrophils % 83.9 H Seg Neuts % (Manual) Lymphocytes % (Manual) Seg Neutrophils # 12.5 H Seg Neutrophils # Man Lymphocytes # (Manual) Monocytes # (Manual) PT INR APTT POC ABG pH POC ABG pO2 55 L Sodium 134 L Potassium Chloride 95.1 L Carbon Dioxide 31 H Creatinine 0.5 L Glucose 106 H Calcium 7.6 L AST ALT Alkaline Phosphatase Total Creatine Kinase NT-Pro-B Natriuret Pep Albumin TSH 01/08/19 01/08/19 06:14 06:14 WBC 14.8 H Hct MCV 97 H RDW 15.9 H Plt Count 621 H Lymph % (Auto) [place] % (Auto) 9.7 H Lymph # [place] # 1.4 H Seg Neutrophils % 84.1 H Seg Neuts % (Manual) 87.0 H Lymphocytes % (Manual) 6.0 L Seg Neutrophils # 12.4 H Seg Neutrophils # Man 12.9 H Lymphocytes # (Manual) 0.9 L Monocytes # (Manual) 1.0 H PT INR APTT POC ABG pH POC ABG pO2 Sodium 133 L Potassium Chloride 94.5 L Carbon Dioxide Creatinine 0.5 L Glucose 107 H Calcium 7.4 L AST ALT Alkaline Phosphatase Total Creatine Kinase NT-Pro-B Natriuret Pep Albumin TSH CT scan - chest: image reviewed (No P.E.; + paraseptal emphysema: + mild upper zone bronchiectasis; bilateral pneumonia) Allied health notes reviewed: nursing
--- NOTE | 2019-01-08 15:51 | Vascular Lab Report ---
PROCEDURE: VL VENOUS DUPLEX LE RT TECHNIQUE: Grayscale and color and spectral doppler ultrasound imaging of the bilateral lower extrem ity venous system was performed. HISTORY: right leg pain, swelling COMPARISONS: None. FINDINGS: There is normal compression and color flow within the bilateral lower extremity venous systems. Norm al augmentation was seen. There is a complex fluid collection beginning along the medial aspect of the left upper thigh extendi ng through to the ankle. IMPRESSION: 1. Negative for bilateral lower extremity DVT. 2. Complex focal fluid collection extending from the medial aspect of the right proximal thigh to the right ankle. This may represent an abscess versus resolving hematoma versus cystic mass lesion. This document is electronically signed by Vivi Lujan., January 08 2019 03:48:38 PM ET
[2019-01-08] MEDS: LASIX IV SCH (18:48)
[2019-01-08] MEDS: PULMICORT IH SCH (21:05)
[2019-01-08] MEDS: BROVANA NEBU IH SCH (21:24)
[2019-01-08] MEDS: LEVAQUIN PO SCH (22:43)
[2019-01-08] MEDS: ZESTRIL PO SCH (22:43)
[2019-01-09] MEDS: DUONEB *Not for PRN Use IH SCH ×4 (02:06→21:55)
[2019-01-09] MEDS: SYNTHROID PO SCH (05:10)
[2019-01-09] MEDS: NORCO 5/325 PO PRN ×2 (05:10→11:26)
[2019-01-09] MEDS: NACL 0.9% 1000 ML 1,000 ML IV SCH ×2 (05:10→21:41)
[2019-01-09] MEDS: ZOSYN/NS 3.375GM/50ML 3.375 GM/50 ML BAG IV SCH (05:18)
[2019-01-09 07:07] LABS: Hematocrit 31.9 % (35.5-45.6); Hemoglobin 10.5 gm/dl (11.8-15.2); Mean Corpuscular HGB Conc 33 % (32-34); Mean Corpuscular Volume 97 fl (84-94); Platelet Count 606 K/mm3 (140-440); Red Blood Count 3.31 M/mm3 (3.65-5.03); Red Cell Distribution Width 15.5 % (13.2-15.2)
[2019-01-09 07:28] LABS: BUN/Creatinine Ratio 43; Blood Urea Nitrogen 26 mg/dL (9-20); Calcium 7.2 mg/dL (8.4-10.2); Hemolysis Index 5
[2019-01-09] MEDS: BROVANA NEBU IH SCH ×2 (08:22→21:55)
[2019-01-09] MEDS: PULMICORT IH SCH ×2 (08:22→21:55)
[2019-01-09] MEDS: LEVAQUIN PO SCH (11:09)
[2019-01-09] MEDS: CORDARONE PO SCH (11:09)
[2019-01-09] MEDS: CARDIZEM CD PO SCH (11:09)
[2019-01-09] MEDS: LASIX IV SCH (11:10)
[2019-01-09] MEDS: HEPARIN SUB-Q SCH ×2 (11:10→21:37)
[2019-01-09] MEDS: FEOSOL PO SCH (11:10)
[2019-01-09] MEDS: HALFPRIN EC PO SCH (11:10)
--- NOTE | 2019-01-09 12:39 | Progress Note ---
Assessment and Plan Generalized pain -chief complaint AVNRT s/p adenosine Hypothyroidism Pneumonia Severe hyponatremia Elevated liver transaminase Chronic lung disease Tobacco abuse Chest CTA documents an ectatic ascending thoracic aorta measuring 5cm. There are chronic emphysematous changes. There are diffuse bilateral pulmonary infiltrates. No evidence of pulmonary embolism. An echocardiogram this admission reveals moderate aortic valve calcification with moderate to severe aortic stenosis. Left ventricular systolic function is normal, EF 60%. Small fixed apical wall defect, no reversible ischemia on MPI done 01/2018. 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 Outpatient management of his aortic stenosis and ascending aortic aneurysm, to be followed up next week by his outpatient multimedia artist. Stable, cardiac ross, for discharge home today. Subjective Date of service: 01/09/19 Principal diagnosis: Acute Hypoxemic Resp Failure; Terrell. PNA; AE-COPD; [place]. Pleural Effusions Interval history: Patient is resting in bed comfortably. He has no complaints. Stable sinus rhythm on telemetry. Objective Vital Signs Temp Pulse Pulse Resp Resp BP Pulse Ox 01/09/19 12:09 97.9 F 100 H 18 119/48 91 01/09/19 09:19 97.9 F 99 H 20 118/52 91 01/09/19 08:22 92 H 20 95 01/09/19 05:24 98.0 F 85 18 95/55 90 01/08/19 23:16 98.0 F 98 H 20 111/60 83 L 01/08/19 22:43 100 H 20 119/56 01/08/19 22:00 90 01/08/19 21:25 93 01/08/19 21:15 84 18 01/08/19 21:05 86 18 01/08/19 20:15 98.0 F 97 H 20 119/56 91 01/08/19 18:50 55 L 01/08/19 16:27 98.6 F 01/08/19 16:16 98.6 F 01/08/19 16:07 83 20 116/60 95 01/08/19 13:28 78 20 129/67 80 L 01/08/19 12:48 87 20 113/57 94 01/08/19 12:47 98.2 F - Physical Examination General: No Apparent Distress HEENT: Positive: PERRL Neck: Positive: trachea midline Cardiac: Positive: Reg Rate and Rhythm Lungs: Positive: Wheezes Neuro: Positive: Grossly Intact Extremities: Absent: edema - Labs and Meds CBC 01/09/19 Range/Units 06:46 WBC 14.6 H (4.5-11.0) K/mm3 RBC 3.31 L (3.65-5.03) M/mm3 Hgb 10.5 L (11.8-15.2) gm/dl Hct 31.9 L (35.5-45.6) % Plt Count 606 H (140-440) K/mm3 Comprehensive Metabolic Panel 01/09/19 Range/Units 06:46 Sodium 132 L (137-145) mmol/L Potassium 4.5 (3.6-5.0) mmol/L Chloride 96.3 L (98-107) mmol/L Carbon Dioxide 29 (22-30) mmol/L BUN 26 H (9-20) mg/dL Creatinine 0.6 L (0.8-1.5) mg/dL Glucose 93 (75-100) mg/dL Calcium 7.2 L (8.4-10.2) mg/dL - Allied health notes Allied health notes reviewed: nursing
--- NOTE | 2019-01-09 12:44 | Progress Note ---
Assessment and Plan Assessment and plan: Sepsis. Patient needs criteria given the tachycardia, leukocytosis and diagnosis of pneumonia. Follow-up blood and urine cultures. Thus far negative. Leukocytosis improving. Bilateral pneumonia. Continue IV antibiotics. Follow serial chest x-ray. Right lower extremity pain. Doppler reveals questionable right abscess versus hematoma. Patient denies any trauma. Surgery consultation. Chronic lung disease/COPD. Compensated. Acute hypoxemic respiratory failure. Etiology secondary to above. Chest CTA documents an ectatic ascending thoracic aorta measuring 5cm. There are chronic emphysematous changes. There are diffuse bilateral pulmonary infiltrates. No evidence of pulmonary embolism. SVT/atrial tachycardia. Resolved. Patient previously S/p adenosine Continue amiodarone by mouth per cardiology recommendations. No evidence of PE on Chest CTA. Well preserved LVEF on echo 01/2018. Small fixed apical wall defect, no reversible ischemia on MPI 01/2018. Cardiology following. Repeat echocardiogram revealed moderate to severe aortic stenosis. EF 55-60%. Hyponatremia. Improved. 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 Hypothyroidism. TSH is 9.25. Continue Synthroid. Elevated LFTs. Etiology likely secondary to sepsis/hypotension. History Interval history: Patient is a 78 year old male who was brought to the emergency department with complaints of generalized pain. A cardiac consultation was requested for atrial fibrillation. On review, his EKG is wide complex tachycardia consistent with SVT. There is no evidence of atrial fibrillation. The patient was initially started on Cardizem drip but developed hypotension. Amiodarone drip was then initiated. On admission, Initial labs revealed leukocytosis, WBC of 26.5 and severe hyponatremia with a sodium of 123. TSH is 9.25. A chest CTA scan documents an ectatic ascending thoracic aorta measuring 5cm. There are chronic emphysematous changes. There are diffuse bilateral pulmonary infiltrates. No evidence of pulmonary embolism. Patient has a history of hypothyroidism. Patient also smokes cigarettes. He is known to [facility] and was recently seen by Dr Walker for anticipated carpal tunnel surgery. His latest cardiac workup was done January 2018. He had a stress thallium stress test that reports a small fixed mid apical wall defect with no reversible ischemia and a well preserved left ventricular ejection fraction 55% on an echocardiogram. Cardiology to transition to oral amiodarone for suppression of atrial tachycardia. Repeat echocardiogram for left ventricular function assessment. No new issues overnight. Hospitalist Physical - Constitutional Vitals: Temp Pulse Resp BP Pulse Ox 97.9 F 100 H 18 119/48 91 01/09/19 12:09 01/09/19 12:09 01/09/19 12:09 01/09/19 12:09 01/09/19 12:09 General appearance: Present: no acute distress - EENT Eyes: Present: PERRL, EOM intact ENT: hearing intact, clear oral mucosa, dentition normal - Neck Neck: Present: supple, normal ROM - Respiratory Respiratory effort: normal Respiratory: bilateral: CTA - Cardiovascular Rhythm: regular Heart Sounds: Present: S1 & S2. Absent: gallop, rub - Extremities Extremities: no ischemia, No edema, Full ROM - Abdominal General gastrointestinal: soft, non-tender, non-distended, normal bowel sounds - Integumentary Integumentary: Present: clear, warm, dry - Neurologic Neurologic: CNII-XII intact, moves all extremities Results - Labs CBC & Chem 7: 01/09/19 06:46 01/09/19 06:46 Labs: Laboratory Last Values WBC 14.6 K/mm3 (4.5-11.0) H 01/09/19 06:46 RBC 3.31 M/mm3 (3.65-5.03) L 01/09/19 06:46 Hgb 10.5 gm/dl (11.8-15.2) L 01/09/19 06:46 Hct 31.9 % (35.5-45.6) L 01/09/19 06:46 MCV 97 fl (84-94) H 01/09/19 06:46 MCH 32 pg (28-32) 01/09/19 06:46 MCHC 33 % (32-34) 01/09/19 06:46 RDW 15.5 % (13.2-15.2) H 01/09/19 06:46 Plt Count 606 K/mm3 (140-440) H 01/09/19 06:46 Lymph % (Auto) 5.5 % (13.4-35.0) L 01/07/19 03:46 Riley % (Auto) 9.7 % (0.0-7.3) H 01/08/19 06:14 Eos % (Auto) 0.2 % (0.0-4.3) 01/08/19 06:14 Baso % (Auto) 0.3 % (0.0-1.8) 01/07/19 03:46 Lymph # 0.8 K/mm3 (1.2-5.4) L 01/07/19 03:46 Riley # 1.4 K/mm3 (0.0-0.8) H 01/08/19 06:14 Eos # 0.0 K/mm3 (0.0-0.4) 01/08/19 06:14 Baso # 0.1 K/mm3 (0.0-0.1) 01/08/19 06:14 Add Manual Diff Complete 01/08/19 06:14 Total Counted 100 01/08/19 06:14 Seg Neutrophils % 84.1 % (40.0-70.0) H 01/08/19 06:14 Seg Neuts % (Manual) 87.0 % (40.0-70.0) H 01/08/19 06:14 Band Neutrophils % 0 % 01/08/19 06:14 Lymphocytes % (Manual) 6.0 % (13.4-35.0) L 01/08/19 06:14 Reactive Lymphs % (Man) 0 % 01/08/19 06:14 Monocytes % (Manual) 7.0 % (0.0-7.3) 01/08/19 06:14 Eosinophils % (Manual) 0 % (0.0-4.3) 01/08/19 06:14 Basophils % (Manual) 0 % (0.0-1.8) 01/08/19 06:14 Metamyelocytes % 0 % 01/08/19 06:14 Myelocytes % 0 % 01/08/19 06:14 Promyelocytes % 0 % 01/08/19 06:14 Blast Cells % 0 % 01/08/19 06:14 Nucleated RBC % Not Reportable 01/08/19 06:14 Seg Neutrophils # 12.4 K/mm3 (1.8-7.7) H 01/08/19 06:14 Seg Neutrophils # Man 12.9 K/mm3 (1.8-7.7) H 01/08/19 06:14 Band Neutrophils # 0.0 K/mm3 01/08/19 06:14 Lymphocytes # (Manual) 0.9 K/mm3 (1.2-5.4) L 01/08/19 06:14 Abs React Lymphs (Man) 0.0 K/mm3 01/08/19 06:14 Monocytes # (Manual) 1.0 K/mm3 (0.0-0.8) H 01/08/19 06:14 Eosinophils # (Manual) 0.0 K/mm3 (0.0-0.4) 01/08/19 06:14 Basophils # (Manual) 0.0 K/mm3 (0.0-0.1) 01/08/19 06:14 Metamyelocytes # 0.0 K/mm3 01/08/19 06:14 Myelocytes # 0.0 K/mm3 01/08/19 06:14 Promyelocytes # 0.0 K/mm3 01/08/19 06:14 Blast Cells # 0.0 K/mm3 01/08/19 06:14 WBC Morphology Not Reportable 01/08/19 06:14 Hypersegmented Neuts Not Reportable 01/08/19 06:14 Hyposegmented Neuts Not Reportable 01/08/19 06:14 Hypogranular Neuts Not Reportable 01/08/19 06:14 Smudge Cells Not Reportable 01/08/19 06:14 Toxic Granulation Not Reportable 01/08/19 06:14 Toxic Vacuolation Not Reportable 01/08/19 06:14 Dohle Bodies Not Reportable 01/08/19 06:14 Pelger-Huet Anomaly Not Reportable 01/08/19 06:14 Eugenio Rods Not Reportable 01/08/19 06:14 Platelet Estimate Consistent w auto 01/08/19 06:14 Clumped Platelets Not Reportable 01/08/19 06:14 Plt Clumps, EDTA Not Reportable 01/08/19 06:14 Large Platelets Not Reportable 01/08/19 06:14 Giant Platelets Not Reportable 01/08/19 06:14 Platelet Satelliting Not Reportable 01/08/19 06:14 Plt Morphology Comment Not Reportable 01/08/19 06:14 RBC Morphology Not Reportable 01/08/19 06:14 Dimorphic RBCs Not Reportable 01/08/19 06:14 Polychromasia Not Reportable 01/08/19 06:14 Hypochromasia Not Reportable 01/08/19 06:14 Poikilocytosis Not Reportable 01/08/19 06:14 Anisocytosis Not Reportable 01/08/19 06:14 Microcytosis Not Reportable 01/08/19 06:14 Macrocytosis Few 01/08/19 06:14 Spherocytes Not Reportable 01/08/19 06:14 Pappenheimer Bodies Not Reportable 01/08/19 06:14 Sickle Cells Not Reportable 01/08/19 06:14 Target Cells Not Reportable 01/08/19 06:14 Tear Drop Cells Not Reportable 01/08/19 06:14 Ovalocytes Not Reportable 01/08/19 06:14 Helmet Cells Not Reportable 01/08/19 06:14 [place] Bodies Not Reportable 01/08/19 06:14 [place] Rings Not Reportable 01/08/19 06:14 [place] Cells Not Reportable 01/08/19 06:14 Bite Cells Not Reportable 01/08/19 06:14 Crenated Cell Not Reportable 01/08/19 06:14 Elliptocytes Not Reportable 01/08/19 06:14 Acanthocytes (Spur) Not Reportable 01/08/19 06:14 Rouleaux Not Reportable 01/08/19 06:14 Hemoglobin C Crystals Not Reportable 01/08/19 06:14 Schistocytes Not Reportable 01/08/19 06:14 Malaria parasites Not Reportable 01/08/19 06:14 Derick Bodies Not Reportable 01/08/19 06:14 Hem Pathologist Commnt No 01/08/19 06:14 PT 15.6 Sec. (12.2-14.9) H 01/05/19 21:47 INR 1.17 (0.87-1.13) H 01/05/19 21:47 APTT 24.1 Sec. (24.2-36.6) L 01/05/19 21:47 POC ABG pH 7.446 (7.35-7.45) 01/07/19 21:09 POC ABG pCO2 44.1 (35-45) 01/07/19 21:09 POC ABG pO2 55 (80-105) L 01/07/19 21:09 POC ABG HCO3 30.4 (22-26 mml/L) 01/07/19 21:09 POC ABG Total CO2 32 (23-27mmol/L) 01/07/19 21:09 POC ABG O2 Sat 89 01/07/19 21:09 POC ABG Base Excess 6 ((-2) - (+3)mmol/L) 01/07/19 21:09 FiO2 32 % 01/07/19 21:09 Sodium 132 mmol/L (137-145) L 01/09/19 06:46 Potassium 4.5 mmol/L (3.6-5.0) 01/09/19 06:46 Chloride 96.3 mmol/L (98-107) L 01/09/19 06:46 Carbon Dioxide 29 mmol/L (22-30) 01/09/19 06:46 Anion Gap 11 mmol/L 01/09/19 06:46 BUN 26 mg/dL (9-20) H 01/09/19 06:46 Creatinine 0.6 mg/dL (0.8-1.5) L 01/09/19 06:46 Estimated GFR > 60 ml/min 01/09/19 06:46 BUN/Creatinine Ratio 43 % 01/09/19 06:46 Glucose 93 mg/dL (75-100) 01/09/19 06:46 Lactic Acid 1.60 mmol/L (0.7-2.0) 01/08/19 20:57 Calcium 7.2 mg/dL (8.4-10.2) L 01/09/19 06:46 Total Bilirubin 0.80 mg/dL (0.1-1.2) 01/05/19 21:47 AST 115 units/L (5-40) H 01/05/19 21:47 ALT 62 units/L (7-56) H 01/05/19 21:47 Alkaline Phosphatase 168 units/L (35-129) H 01/05/19 21:47 Total Creatine Kinase 45 units/L (55-170) L 01/05/19 21:47 CK-MB (CK-2) 1.3 ng/mL (0.0-4.0) 01/05/19 21:47 CK-MB (CK-2) Rel Index 2.8 (0-4) 01/05/19 21:47 Troponin T < 0.010 ng/mL (0.00-0.029) 01/06/19 18:58 C-Reactive Protein 7.80 mg/dL (0.00-1.30) H 01/08/19 19:09 NT-Pro-B Natriuret Pep 8941 pg/mL (0-900) H 01/06/19 07:24 Total Protein 6.6 g/dL (6.3-8.2) 01/05/19 21:47 Albumin 1.5 g/dL (3.9-5) L 01/05/19 21:47 Albumin/Globulin Ratio 0.3 % 01/05/19 21:47 Lipase 32 units/L (13-60) 01/05/19 21:47 TSH 9.270 mlU/mL (0.270-4.200) H 01/06/19 07:24 Free T4 0.76 ng/dL (0.76-1.46) 01/06/19 07:24 Urine Color Yellow (Yellow) 01/05/19 21:39 Urine Turbidity Clear (Clear) 01/05/19 21:39 Urine pH 6.0 (5.0-7.0) 01/05/19 21:39 Ur Specific Cass 1.005 (1.003-1.030) 01/05/19 21:39 Urine Protein <15 mg/dl mg/dL (Negative) 01/05/19 21:39 Urine Glucose (UA) Neg mg/dL (Negative) 01/05/19 21:39 Urine Ketones Neg mg/dL (Negative) 01/05/19 21:39 Urine Blood Neg (Negative) 01/05/19 21:39 Urine Nitrite Neg (Negative) 01/05/19 21:39 Urine Bilirubin Neg (Negative) 01/05/19 21:39 Urine Urobilinogen < 2.0 mg/dL (<2.0) 01/05/19 21:39 Ur Leukocyte Esterase Neg (Negative) 01/05/19 21:39 Urine WBC (Auto) 1.0 /HPF (0.0-6.0) 01/05/19 21:39 Urine RBC (Auto) 1.0 /HPF (0.0-6.0) 01/05/19 21:39 Urine Mucus Few /HPF 01/05/19 21:39 Active Medications - Current Medications Current Medications: Generic Name Dose Route Start Last Admin Trade Name Freq PRN Reason Stop Dose Admin Acetaminophen 650 mg 01/06/19 01:50 01/08/19 01:54 Tylenol PO 650 mg Q4H PRN Administration Pain, Mild (1-3) Acetaminophen/Hydrocodone Bitart 1 each 01/07/19 21:36 01/09/19 11:26 [place] 5/325 PO 1 each Q6H PRN Administration Pain, Moderate (4-6) Albuterol/Ipratropium 1 ampul 01/06/19 03:45 01/09/19 08:22 Duoneb *Not For Prn Use* IH Not Given Q6HRT JONI Amiodarone HCl 200 mg 01/09/19 10:00 01/09/19 11:09 Cordarone PO 200 mg QDAY JONI Administration Arformoterol Tartrate 15 mcg 01/08/19 20:00 01/09/19 08:22 Brovana Nebu IH 15 mcg Q12HRT JONI Administration Aspirin 81 mg 01/06/19 10:00 01/09/19 11:10 Halfprin Ec PO 81 mg DAILY JONI Administration Budesonide 0.5 mg 01/08/19 20:00 01/09/19 08:22 Pulmicort IH 0.5 mg Q12HRT JONI Administration Diltiazem HCl 180 mg 01/09/19 10:00 01/09/19 11:09 Cardizem Cd PO 180 mg QDAY JONI Administration Ferrous Sulfate 325 mg 01/06/19 10:00 01/09/19 11:10 Feosol PO 325 mg DAILY JONI Administration Heparin Sodium (Porcine) 5,000 unit 01/06/19 10:00 01/09/19 11:10 Heparin SUB-Q 5,000 unit Q12HR JONI Administration Sodium Chloride 1,000 mls @ 75 mls/hr 01/06/19 05:00 01/09/19 05:10 Nacl 0.9% 1000 Ml IV 75 mls/hr DIRECT JONI Administration Levofloxacin 500 mg 01/08/19 19:00 01/09/19 11:09 Levaquin PO 01/12/19 10:01 500 mg Q24HR JONI Administration Levothyroxine Sodium 112 mcg 01/06/19 06:00 01/09/19 05:10 Synthroid PO 112 mcg DAILY@0600 JONI Administration Lisinopril 5 mg 01/06/19 22:00 01/08/19 22:43 Zestril PO 5 mg HS JONI Administration Lorazepam 1 mg 01/06/19 01:57 01/06/19 02:56 Ativan IV 1 mg Q4H PRN Administration Anxiety Ondansetron HCl 4 mg 01/06/19 01:52 Zofran IV Q8H PRN Nausea And Vomiting Zolpidem Tartrate 5 mg 01/06/19 23:57 01/08/19 22:42 Ambien PO 5 mg QHS PRN Administration Sleep
[2019-01-09 12:59] LABS: Basophils % (Manual) 0 % (0.0-1.8); Eosinophils % (Manual) 0 % (0.0-4.3); Macrocytosis Few; Myelocytes # (Manual) 0.1 K/mm3; Platelet Estimate Consistent w Auto; Total Cells Counted 100
--- NOTE | 2019-01-09 13:12 | Progress Note ---
Assessment and Plan Acute Hypoxemic Respiratory Failure Bilateral pneumonia Acute COPD exacerbation Bilateral Pleural Effusions CMOP (HFpEF) Aortic Stenosis SVT Hyponatremia Hypothyroidism Elevated LFTs - lower extremity doppler -ve for DVT but complex fluid collection to right thigh - continue to wean supplemental oxygen to keep sat's > 90% - continue bronchodilators with pulmonary hygiene per RT - continue LABA & ICS (Brovana & pulmicort) - follow sputum for gm stain C&S - tobacco Abstinence strongly counseled - continue empiric Zosyn - get CRP level and if unremarkable will de-escalate AB's - add Levaquin for atypical coverage & double GNC in light of structural lung diseas - discussed care plan with attending and patients wishes but adviced he remain till discharged - management per cardiology - add GI prophylaxis and continue VTE prophylaxis with heparin - gentle diuresis for pulmonary edema componentt re: GGO's on CTA (will give 2 doses of lasix 20mg IV and reassess) - continue other care per attending / other consultants ... re-evaluate in am & prn Subjective Date of service: 01/09/19 Principal diagnosis: Acute Hypoxemic Resp Failure; Terrell. PNA; AE-COPD; Terrell. Pleural Effusions Interval history: Patient is seen today for: Acute Hypoxemic Respiratory Failure; Bilateral pn eumonia; Acute COPD exacerbation; Bilateral Pleural Effusions; CMOP (HFpEF); Aortic Stenosis; SVT Seen and examined at bedside; 24hour events reviewed; nursing and respiratory care staff consulted; no adverse overnight events reported to me; resting peacefullly in bed; remains on supplemental oxygen; denies acute chest pains or palpitations Objective Vital Signs - 12hr 01/09/19 01/09/19 01/09/19 05:24 08:22 09:19 Temperature 98.0 F 97.9 F Pulse Rate 85 99 H Pulse Rate [ 92 H Anterior Bilateral Throughout] Respiratory 18 20 Rate Respiratory 20 Rate [Anterior Bilateral Throughout] Blood Pressure 95/55 118/52 O2 Sat by Pulse 90 95 91 Oximetry 01/09/19 12:09 Temperature 97.9 F Pulse Rate 100 H Pulse Rate [ Anterior Bilateral Throughout] Respiratory 18 Rate Respiratory Rate [Anterior Bilateral Throughout] Blood Pressure 119/48 O2 Sat by Pulse 91 Oximetry Constitutional: no acute distress, alert, other (elderly looking CM, normocephalic and atraumatic with mildly increased resp effort at rest) Eyes: non-icteric ENT: oropharynx moist Neck: supple, no lymphadenopathy Effort: mildly labored Ascultation: Bilateral: diminished breath sounds, rhonchi Percussion: Bilateral: not dull Cardiovascular: regular rate and rhythm Gastrointestinal: normoactive bowel sounds, soft, non-tender, non-distended Integumentary: normal, rash Extremities: no cyanosis, pink and warm, pulses normal, no ischemia or petechiae, edema (Right lower extremity) Neurologic: other (Patient sleeping at this time.) Psychiatric: mood appropriate, affect normal CBC and BMP: 01/12/19 05:39 01/12/19 05:42 ABG, PT/INR, D-dimer: ABG POC ABG pH 7.446 (7.35-7.45) 01/07/19 21:09 POC ABG pCO2 44.1 (35-45) 01/07/19 21:09 POC ABG pO2 55 (80-105) L 01/07/19 21:09 POC ABG HCO3 30.4 (22-26 mml/L) 01/07/19 21:09 POC ABG Total CO2 32 (23-27mmol/L) 01/07/19 21:09 POC ABG O2 Sat 89 01/07/19 21:09 PT/INR, D-dimer PT 15.6 Sec. (12.2-14.9) H 01/05/19 21:47 INR 1.17 (0.87-1.13) H 01/05/19 21:47 Abnormal lab findings: Abnormal Labs 01/05/19 01/05/19 01/05/19 21:47 21:47 21:47 WBC RBC Hgb Hct MCV RDW Plt Count Lymph % (Auto) [place] % (Auto) Lymph # [place] # Seg Neutrophils % Seg Neuts % (Manual) Lymphocytes % (Manual) Monocytes % (Manual) Seg Neutrophils # Seg Neutrophils # Man Lymphocytes # (Manual) Monocytes # (Manual) PT 15.6 H INR 1.17 H APTT 24.1 L POC ABG pH POC ABG pO2 Sodium 123 L Potassium 7.7 H* Chloride 85.4 L Carbon Dioxide BUN Creatinine 0.6 L Glucose Lactic Acid Calcium 7.8 L AST 115 H ALT 62 H Alkaline Phosphatase 168 H Total Creatine Kinase 45 L C-Reactive Protein NT-Pro-B Natriuret Pep Albumin 1.5 L TSH 01/05/19 01/05/19 01/06/19 22:07 23:16 02:16 WBC 26.5 H RBC Hgb Hct MCV 95 H RDW 15.6 H Plt Count 560 H Lymph % (Auto) [place] % (Auto) Lymph # [place] # Seg Neutrophils % Seg Neuts % (Manual) 91.0 H Lymphocytes % (Manual) 4.0 L Monocytes % (Manual) Seg Neutrophils # Seg Neutrophils # Man 24.1 H Lymphocytes # (Manual) 1.1 L Monocytes # (Manual) 1.3 H PT INR APTT POC ABG pH 7.494 H POC ABG pO2 Sodium 131 L D Potassium Chloride 94.0 L Carbon Dioxide BUN Creatinine 0.5 L Glucose 122 H Lactic Acid Calcium 7.3 L AST ALT Alkaline Phosphatase Total Creatine Kinase C-Reactive Protein NT-Pro-B Natriuret Pep Albumin TSH 01/06/19 01/06/19 01/06/19 07:24 07:24 07:24 WBC RBC Hgb Hct MCV RDW Plt Count Lymph % (Auto) [place] % (Auto) Lymph # [place] # Seg Neutrophils % Seg Neuts % (Manual) Lymphocytes % (Manual) Monocytes % (Manual) Seg Neutrophils # Seg Neutrophils # Man Lymphocytes # (Manual) Monocytes # (Manual) PT INR APTT POC ABG pH POC ABG pO2 Sodium 132 L Potassium Chloride 96.3 L Carbon Dioxide BUN Creatinine 0.5 L Glucose Lactic Acid Calcium 7.4 L AST ALT Alkaline Phosphatase Total Creatine Kinase C-Reactive Protein NT-Pro-B Natriuret Pep 8941 H Albumin TSH 9.270 H 01/07/19 01/07/19 01/07/19 03:46 03:46 21:09 WBC 14.9 H RBC Hgb Hct 35.2 L MCV 96 H RDW 15.7 H Plt Count 584 H Lymph % (Auto) 5.5 L [place] % (Auto) 10.0 H Lymph # 0.8 L [place] # 1.5 H Seg Neutrophils % 83.9 H Seg Neuts % (Manual) Lymphocytes % (Manual) Monocytes % (Manual) Seg Neutrophils # 12.5 H Seg Neutrophils # Man Lymphocytes # (Manual) Monocytes # (Manual) PT INR APTT POC ABG pH POC ABG pO2 55 L Sodium 134 L Potassium Chloride 95.1 L Carbon Dioxide 31 H BUN Creatinine 0.5 L Glucose 106 H Lactic Acid Calcium 7.6 L AST ALT Alkaline Phosphatase Total Creatine Kinase C-Reactive Protein NT-Pro-B Natriuret Pep Albumin TSH 01/08/19 01/08/19 01/08/19 06:14 06:14 19:09 WBC 14.8 H RBC Hgb Hct MCV 97 H RDW 15.9 H Plt Count 621 H Lymph % (Auto) [place] % (Auto) 9.7 H Lymph # [place] # 1.4 H Seg Neutrophils % 84.1 H Seg Neuts % (Manual) 87.0 H Lymphocytes % (Manual) 6.0 L Monocytes % (Manual) Seg Neutrophils # 12.4 H Seg Neutrophils # Man 12.9 H Lymphocytes # (Manual) 0.9 L Monocytes # (Manual) 1.0 H PT INR APTT POC ABG pH POC ABG pO2 Sodium 133 L Potassium Chloride 94.5 L Carbon Dioxide BUN Creatinine 0.5 L Glucose 107 H Lactic Acid 2.20 H* Calcium 7.4 L AST ALT Alkaline Phosphatase Total Creatine Kinase C-Reactive Protein NT-Pro-B Natriuret Pep Albumin TSH 01/08/19 01/09/19 01/09/19 19:09 06:46 06:46 WBC 14.6 H RBC 3.31 L Hgb 10.5 L Hct 31.9 L MCV 97 H RDW 15.5 H Plt Count 606 H Lymph % (Auto) [place] % (Auto) Lymph # [place] # Seg Neutrophils % Seg Neuts % (Manual) 88.0 H Lymphocytes % (Manual) 3.0 L Monocytes % (Manual) 8.0 H Seg Neutrophils # Seg Neutrophils # Man 12.8 H Lymphocytes # (Manual) 0.4 L Monocytes # (Manual) 1.2 H PT INR APTT POC ABG pH POC ABG pO2 Sodium 132 L Potassium Chloride 96.3 L Carbon Dioxide BUN 26 H Creatinine 0.6 L Glucose Lactic Acid Calcium 7.2 L AST ALT Alkaline Phosphatase Total Creatine Kinase C-Reactive Protein 7.80 H NT-Pro-B Natriuret Pep Albumin TSH Allied health notes reviewed: nursing
--- NOTE | 2019-01-09 15:18 | XRay Report ---
AP CHEST :01/08/19 CLINICAL: Followup pneumonia. COMPARISON:CT chest 01/05/19 FINDINGS: The heart is normal size. Large central pulmonary arteries but otherwise normal ulnar vasculature.Bilateral upper lobe and bilateral lower lobe infiltrates with greatest opacification in the right upper lobe. The oscar are retracted superiorly. No obvious pleural effusions. No tubes or lines. IMPRESSION: Multilobar pneumonia, worse in the right upper lobe.There may be slight improvement compared to the CT. No CHF.
[2019-01-09] MEDS: PERCOCET 5/325 PO PRN ×2 (16:56→21:36)
[2019-01-09] MEDS: AMBIEN PO PRN (21:37)
[2019-01-09] MEDS: ZESTRIL PO SCH (21:37)
[2019-01-10] MEDS: PERCOCET 5/325 PO PRN (01:44)
[2019-01-10] MEDS: DUONEB *Not for PRN Use IH SCH ×4 (03:19→20:55)
[2019-01-10] MEDS: NACL 0.9% 1000 ML 1,000 ML IV SCH ×2 (03:24→12:58)
[2019-01-10 04:06] LABS: BUN/Creatinine Ratio 90; Blood Urea Nitrogen 63 mg/dL (9-20); Hemolysis Index 15
[2019-01-10 04:11] LABS: Hemoglobin 6.8 gm/dl (11.8-15.2); Mean Corpuscular HGB Conc 34 % (32-34); Mean Corpuscular Volume 97 fl (84-94); Platelet Count 583 K/mm3 (140-440); Red Blood Count 2.11 M/mm3 (3.65-5.03); Red Cell Distribution Width 15.5 % (13.2-15.2)
[2019-01-10 04:13] LABS: Hematocrit 20.3 % (35.5-45.6)
[2019-01-10] MEDS ORDERED: PROTONIX 80 MG in NACL 0.9% 100 ML IV SCH (05:00)
[2019-01-10] MEDS ORDERED: NACL 0.9% 500 ML 500 ML IV ONE (05:00)
[2019-01-10] MEDS ORDERED: MORPHINE IV PRN (05:28)
--- NOTE | 2019-01-10 05:48 | Event Note ---
Date: 01/10/19 I had received a call from Mr Aurelio's nurse reporting that his BP was 94/87 from 104/41 earlier, and also his last BM was dark and loose. I ordered a stat H&H, 500ml NS bolus, Guaiac stool x3, and to keep the pt NPO. The H&H result came in 6.8/20.3 and he had another loose stool. Type and cross for 2 units, transfuse 1, start protonix douglas, Called was placed to it security consultant GI (Dr Jose Roberto Banks) who agreed with the plan and to see the pt in am for possible colosnoscopy.
[2019-01-10 06:09] LABS: Band Neutrophils # (Manual) 3.4 K/mm3; Myelocytes # (Manual) 0.4 K/mm3; Total Cells Counted 100
[2019-01-10 06:10] LABS: Anisocytosis Few; Hypochromasia Few; Platelet Estimate Consistent w Auto; Poikilocytosis Rare
[2019-01-10] MEDS: SYNTHROID PO SCH (06:10)
--- NOTE | 2019-01-10 09:00 | Gastroenterology Consultation ---
History of Present Illness - Reason for Consult Consult date: 01/10/19 Melena Requesting physician: TORO TORRES - History of Present Illness The patient is a 78 yo male admitted for SOB/COPD/pneumonia flare with significant cardiopulmonary disease. He was stabilizing, and cleared (by Cards) for d/c home but over the last 36 hours has had a significant drop in H/H. He started having dark stools that were loose yesterday (always dark at home per patient - chronic PO iron for chronic anemia) with burning epigastric pain. He has had no N/V/hematemesis. A colonoscopy 3 years ago (jared ACOSTA per patient) showed 2 polyps, but he has not had an upper endoscopy, nor does he have a hx of PUD. However, he takes ibuprofen on a daily basis at home, and bicarb of s sherrell/Rolaids often for "upset stomach." He has been anemic for over 3 years by report, and on chronic iron, but denies gross GI losses; there has been no recent IV iron or PRBC. He has no family hx of GI bleeding or chronic anemia. He says his SOB is mildly worse with the anemia but better than at admit, and he has no active CP at present. He is not currently on blood thinners other than subcut heparin. Past History Past Medical History: arrhythmia (NSVT), anemia (Chronic anemia per patient (on PO iron)), COPD (with active tobacco), hyperthyroidism, other (Thoracic aneurysm, Aortic Stenosis, Pneumonia, Chronic Anemia) Past Surgical History: total hip replacement Social history: smoking, prescription drug abuse Family history: no significant family history Medications and Allergies Allergies Allergy/AdvReac Type Severity Reaction Status Date / Time pregabalin [From Lyrica] AdvReac Unknown Verified 01/05/19 21:43 Home Medications Medication Instructions Recorded Confirmed Last Taken Type Aspirin EC 81 mg PO DAILY 01/06/19 01/06/19 Unknown History Eszopiclone 3 mg PO HS 01/06/19 01/06/19 Unknown History Ferrous Sulfate [Iron] 1 tab PO DAILY 01/06/19 01/06/19 Unknown History Ibuprofen 200 mg PO Q6HR PRN 01/06/19 01/06/19 Unknown History Levothyroxine [Synthroid] 112 mcg PO DAILY 01/06/19 01/06/19 Unknown History Lisinopril [Prinivil] 5 mg PO HS 01/06/19 01/06/19 Unknown History oxyCODONE /ACETAMINOPHEN [Percocet 5 mg PO Q4HR PRN 01/06/19 01/06/19 Unknown History 5/325 mg] Active Meds: Active Medications Acetaminophen (Tylenol) 650 mg PO Q4H PRN PRN Reason: Pain, Mild (1-3) Last Admin: 01/08/19 01:54 Dose: 650 mg Documented by: Acetaminophen/Hydrocodone Bitart ([place] 5/325) 1 each PO Q6H PRN PRN Reason: Pain, Moderate (4-6) Last Admin: 01/09/19 11:26 Dose: 1 each Documented by: Albuterol/Ipratropium (Duoneb *Not For Prn Use*) 1 ampul IH Q6HRT [facility] Last Admin: 01/10/19 03:19 Dose: Not Given Documented by: Amiodarone HCl (Cordarone) 200 mg PO QDAY [facility] Last Admin: 01/09/19 11:09 Dose: 200 mg Documented by: Arformoterol Tartrate (Brovana Nebu) 15 mcg IH Q12HRT [facility] Last Admin: 01/09/19 21:55 Dose: 15 mcg Documented by: Budesonide (Pulmicort) 0.5 mg IH Q12HRT [facility] Last Admin: 01/09/19 21:55 Dose: 0.5 mg Documented by: Diltiazem HCl (Cardizem Cd) 180 mg PO QDAY [facility] Last Admin: 01/09/19 11:09 Dose: 180 mg Documented by: Ferrous Sulfate (Feosol) 325 mg PO DAILY [facility] Last Admin: 01/09/19 11:10 Dose: 325 mg Documented by: Sodium Chloride (Nacl 0.9% 1000 Ml) 1,000 mls @ 75 mls/hr IV DIRECT [facility] Last Admin: 01/09/19 21:41 Dose: 75 mls/hr Documented by: Sodium Chloride (Nacl 0.9% 1000 Ml) 1,000 mls @ 100 mls/hr IV DIRECT [facility] Last Admin: 01/10/19 03:24 Dose: 100 mls/hr Documented by: Pantoprazole Sodium 80 mg/ (Sodium Chloride) 100 mls @ 10 mls/hr IV DIRECT S Last Admin: 01/10/19 05:39 Dose: 8 mg/hr, 10 mls/hr Documented by: Levofloxacin (Levaquin) 500 mg PO Q24HR [facility] Stop: 01/12/19 10:01 Last Admin: 01/09/19 11:09 Dose: 500 mg Documented by: Levothyroxine Sodium (Synthroid) 112 mcg PO DAILY@0600 [facility] Last Admin: 01/10/19 06:10 Dose: Not Given Documented by: Lisinopril (Zestril) 5 mg PO HS [facility] Last Admin: 01/09/19 21:37 Dose: 5 mg Documented by: Lorazepam (Ativan) 1 mg IV Q4H PRN PRN Reason: Anxiety Last Admin: 01/06/19 02:56 Dose: 1 mg Documented by: Morphine Sulfate (Morphine) 2 mg IV Q4H PRN PRN Reason: Pain, Moderate (4-6) Last Admin: 01/10/19 08:42 Dose: 2 mg Documented by: Ondansetron HCl (Zofran) 4 mg IV Q8H PRN PRN Reason: Nausea And Vomiting Oxycodone/Acetaminophen (Percocet 5/325) 1 tab PO Q4H PRN PRN Reason: Pain, Moderate (4-6) Last Admin: 01/10/19 01:44 Dose: 1 tab Documented by: Zolpidem Tartrate (Ambien) 5 mg PO QHS PRN PRN Reason: Sleep Last Admin: 01/09/19 21:37 Dose: 5 mg Documented by: Review of Systems - Review of Systems All systems: negative (as noted in the HPI) Exam - Constitutional Vital Signs: Temp Pulse Resp BP Pulse Ox 97.9 F 88 20 133/37 96 01/10/19 08:41 01/10/19 08:41 01/10/19 08:41 01/10/19 08:41 01/10/19 08:41 General appearance: no acute distress - EENT Eyes: PERRL, EOM intact ENT: hearing intact, poor dentition, no thrush - Neck Neck: supple, normal ROM - Respiratory Respiratory effort: normal Respiratory: bilateral: diminished - Cardiovascular Rhythm: regular Heart Sounds: Present: S1 & S2, systolic murmur (2/6) - Gastrointestinal General gastrointestinal: Present: soft, tender (minimal epigastric tenderness), non-distended - Integumentary Integumentary: Present: clear, warm, dry - Neurologic Neurological: alert and oriented x3 - Labs CBC & Chem 7: 01/10/19 03:25 01/10/19 03:25 Lab Results: Laboratory Results - last 24 hr 01/09/19 01/09/19 01/10/19 06:46 23:54 03:25 WBC 21.0 H RBC 2.11 L Hgb 6.8 L D Hct 20.3 L D MCV 97 H MCH 32 MCHC 34 RDW 15.5 H Plt Count 583 H [place] % (Auto) [place] Eos % (Auto) [place] Eos # [place] Baso # [place] Add Manual Diff Complete Complete Total Counted 100 100 Seg Neutrophils % [place] Seg Neuts % (Manual) 88.0 H 64.0 Band Neutrophils % 0 16.0 Lymphocytes % (Manual) 3.0 L 9.0 L Reactive Lymphs % (Man) 0 0 Monocytes % (Manual) 8.0 H 5.0 Eosinophils % (Manual) 0 1.0 Basophils % (Manual) 0 1.0 Metamyelocytes % 0 2.0 Myelocytes % 1.0 2.0 Promyelocytes % 0 0 Blast Cells % 0 0 Nucleated RBC % Not Reportable Not Reportable Seg Neutrophils # [place] Seg Neutrophils # Man 12.8 H 13.4 H Band Neutrophils # 0.0 3.4 Lymphocytes # (Manual) 0.4 L 1.9 Abs React Lymphs (Man) 0.0 0.0 Monocytes # (Manual) 1.2 H 1.1 H Eosinophils # (Manual) 0.0 0.2 Basophils # (Manual) 0.0 0.2 H Metamyelocytes # 0.0 0.4 Myelocytes # 0.1 0.4 Promyelocytes # 0.0 0.0 Blast Cells # 0.0 0.0 WBC Morphology Not Reportable Not Reportable Hypersegmented Neuts Not Reportable Not Reportable Hyposegmented Neuts Not Reportable Not Reportable Hypogranular Neuts Not Reportable Not Reportable Smudge Cells Not Reportable Not Reportable Toxic Granulation Not Reportable Not Reportable Toxic Vacuolation Not Reportable Not Reportable Dohle Bodies Not Reportable Not Reportable Pelger-Huet Anomaly Not Reportable Not Reportable Eugenio Rods Not Reportable Not Reportable Platelet Estimate Consistent w auto Consistent w auto Clumped Platelets Not Reportable Not Reportable Plt Clumps, EDTA Not Reportable Not Reportable Large Platelets Not Reportable Not Reportable Giant Platelets Not Reportable Not Reportable Platelet Satelliting Not Reportable Not Reportable Plt Morphology Comment Not Reportable Not Reportable RBC Morphology Not Reportable Not Reportable Dimorphic RBCs Not Reportable Not Reportable Polychromasia Not Reportable Not Reportable Hypochromasia Not Reportable Few Poikilocytosis Not Reportable Rare Anisocytosis Not Reportable Few Microcytosis Not Reportable Not Reportable Macrocytosis Few Not Reportable Spherocytes Not Reportable Not Reportable Pappenheimer Bodies Not Reportable Not Reportable Sickle Cells Not Reportable Not Reportable Target Cells Not Reportable Not Reportable Tear Drop Cells Not Reportable Not Reportable Ovalocytes Not Reportable Not Reportable Helmet Cells Not Reportable Not Reportable [place] Bodies Not Reportable Not Reportable [place] Rings Not Reportable Not Reportable Jame Cells Not Reportable Not Reportable Bite Cells Not Reportable Not Reportable Crenated Cell Not Reportable Not Reportable Elliptocytes Not Reportable Not Reportable Acanthocytes (Spur) Not Reportable Not Reportable Rouleaux Not Reportable Not Reportable Hemoglobin C Crystals Not Reportable Not Reportable Schistocytes Not Reportable Not Reportable Malaria parasites Not Reportable Not Reportable Derick Bodies Not Reportable Not Reportable Hem Pathologist Commnt No No Sodium Potassium Chloride Carbon Dioxide Anion Gap BUN Creatinine Estimated GFR BUN/Creatinine Ratio Glucose POC Glucose 100 Calcium Blood Type Antibody Screen Crossmatch 01/10/19 01/10/19 03:25 04:53 WBC RBC Hgb Hct MCV MCH MCHC RDW Plt Count [place] % (Auto) Eos % (Auto) Eos # Baso # Add Manual Diff Total Counted Seg Neutrophils % Seg Neuts % (Manual) Band Neutrophils % Lymphocytes % (Manual) Reactive Lymphs % (Man) Monocytes % (Manual) Eosinophils % (Manual) Basophils % (Manual) Metamyelocytes % Myelocytes % Promyelocytes % Blast Cells % Nucleated RBC % Seg Neutrophils # Seg Neutrophils # Man Band Neutrophils # Lymphocytes # (Manual) Abs React Lymphs (Man) Monocytes # (Manual) Eosinophils # (Manual) Basophils # (Manual) Metamyelocytes # Myelocytes # Promyelocytes # Blast Cells # WBC Morphology Hypersegmented Neuts Hyposegmented Neuts Hypogranular Neuts Smudge Cells Toxic Granulation Toxic Vacuolation Dohle Bodies Pelger-Huet Anomaly Eugenio Rods Platelet Estimate Clumped Platelets Plt Clumps, EDTA Large Platelets Giant Platelets Platelet Satelliting Plt Morphology Comment RBC Morphology Dimorphic RBCs Polychromasia Hypochromasia Poikilocytosis Anisocytosis Microcytosis Macrocytosis Spherocytes Pappenheimer Bodies Sickle Cells Target Cells Tear Drop Cells Ovalocytes Helmet Cells [place] Bodies [place] Rings Jame Cells Bite Cells Crenated Cell Elliptocytes Acanthocytes (Spur) Rouleaux Hemoglobin C Crystals Schistocytes Malaria parasites Derick Bodies Hem Pathologist Commnt Sodium 132 L Potassium 5.4 H Chloride 99.0 Carbon Dioxide 20 L D Anion Gap 18 BUN 63 H Creatinine 0.7 L Estimated GFR > 60 BUN/Creatinine Ratio 90 Glucose 119 H POC Glucose Calcium 7.0 L Blood Type A POSITIVE Antibody Screen Negative Crossmatch See Detail Assessment and Plan - Patient Problems (1) Melena Current Visit: Yes Status: Acute Plan to address problem: - Likely PUD given daily NSAID use and need for OTC antiacids. - Will plan EGD today but after transfusion given significant cardiopulmonary disease. - Patient already on PPI gtt. - Keep NPO for now, and on IV fluids. - OK to continue cardiac meds for rate control. - D/C all NSAIDs for now; will make decision about ASA after EGD. Subcut heparin for DVT PPY is OK given high risk. - Informed patient endoscopy would be increased risk due to significant comorb ids.
[2019-01-10] MEDS: PULMICORT IH SCH ×2 (09:43→20:55)
[2019-01-10] MEDS: BROVANA NEBU IH SCH ×2 (09:43→20:55)
[2019-01-10] MEDS: FEOSOL PO SCH (10:38)
[2019-01-10] MEDS: LEVAQUIN PO SCH (10:39)
[2019-01-10] MEDS: CARDIZEM CD PO SCH (10:43)
[2019-01-10] MEDS: CORDARONE PO SCH ×2 (10:43→10:58)
[2019-01-10] MEDS: ATIVAN IV PRN (10:54)
--- NOTE | 2019-01-10 11:28 | Progress Note ---
Assessment and Plan 1. Acute GI bleed with is significant fall in H/H 2. History of PSVT 3. Chronic obstructive pulmonary disease 4. Thoracic aortic aneurysm Plan. Patient has been seen by gastroenterology for possible endoscopy today we will follow Subjective Date of service: 01/10/19 Principal diagnosis: Acute Hypoxemic Resp Failure; Terrell. PNA; AE-COPD; Terrell. Pleural Effusions Interval history: No cardiacs ymptoms. Objective Vital Signs Temp Pulse Pulse Resp Resp BP Pulse Ox 01/10/19 08:52 18 01/10/19 08:41 97.9 F 88 20 133/37 96 01/10/19 01:44 20 01/09/19 23:51 97.7 F 98 H 20 94/47 86 01/09/19 22:13 93 01/09/19 21:55 89 16 01/09/19 21:36 20 01/09/19 20:15 71 01/09/19 19:33 97.9 F 97 H 20 104/54 88 01/09/19 16:26 98.0 F 71 20 122/55 85 01/09/19 13:34 99 H 20 01/09/19 13:24 93 H 20 01/09/19 12:09 97.9 F 100 H 18 119/48 91 - Physical Examination General: Appears Well, No Apparent Distress HEENT: Positive: PERRL Neck: Positive: neck supple, trachea midline. Negative: JVD/HJR Cardiac: Positive: Regular Rate, S1/S2, PMI, Laterally Displaced. Negative: S3, S4 Lungs: Positive: clear to auscultation, No Wheeze, Rales, Rhonchi Neuro: Positive: Grossly Intact, No Lateralizing Findings Abdomen: Positive: Unremarkable, Active Bowel Sounds Extremities: Absent: edema - Labs and Meds CBC 01/10/19 Range/Units 03:25 WBC 21.0 H (4.5-11.0) K/mm3 RBC 2.11 L (3.65-5.03) M/mm3 Hgb 6.8 L D (11.8-15.2) gm/dl Hct 20.3 L D (35.5-45.6) % Plt Count 583 H (140-440) K/mm3 Eos # [place] Baso # [place] Comprehensive Metabolic Panel 01/10/19 Range/Units 03:25 Sodium 132 L (137-145) mmol/L Potassium 5.4 H (3.6-5.0) mmol/L Chloride 99.0 (98-107) mmol/L Carbon Dioxide 20 L D (22-30) mmol/L BUN 63 H (9-20) mg/dL Creatinine 0.7 L (0.8-1.5) mg/dL Glucose 119 H (75-100) mg/dL Calcium 7.0 L (8.4-10.2) mg/dL - Allied health notes Allied health notes reviewed: nursing
--- NOTE | 2019-01-10 12:11 | Progress Note ---
Assessment and Plan Assessment and plan: Melena. Etiology is likely secondary to PUD given his daily NSAID use and need for [id number] antacids. EGD will be performed today after PRBCs per GI. Continue Protonix drip. DC all NSAIDs for now. Sepsis. Resolved. Patient needs criteria given the tachycardia, leukocytosis and diagnosis of pneumonia. Follow-up blood and urine cultures. Thus far negative. Leukocytosis improving. Bilateral pneumonia. Continue IV antibiotics. Follow serial chest x-ray. Right lower extremity pain. Doppler reveals questionable right abscess versus hematoma. Patient denies any trauma. Surgery consultation. Chronic lung disease/COPD. Compensated. Acute hypoxemic respiratory failure. Etiology secondary to above. Chest CTA documents an ectatic ascending thoracic aorta measuring 5cm. There are chronic emphysematous changes. There are diffuse bilateral pulmonary infiltrates. No evidence of pulmonary embolism. SVT/atrial tachycardia. Resolved. Patient previously S/p adenosine Continue amiodarone by mouth per cardiology recommendations. No evidence of PE on Chest CTA. Well preserved LVEF on echo 01/2018. Small fixed apical wall defect, no reversible ischemia on MPI 01/2018. Cardi ology following. Repeat echocardiogram revealed moderate to severe aortic stenosis. EF 55-60%. Hyponatremia. Improved. 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 Hypothyroidism. TSH is 9.25. Continue Synthroid. Elevated LFTs. Etiology likely secondary to sepsis/hypotension. History Interval history: Patient is a 78 year old male who was brought to the emergency department with complaints of generalized pain. A cardiac consultation was requested for atrial fibrillation. On review, his EKG is wide complex tachycardia consistent with S VT. There is no evidence of atrial fibrillation. The patient was initially started on Cardizem drip but developed hypotension. Amiodarone drip was then initiated. On admission, Initial labs revealed leukocytosis, WBC of 26.5 and severe hyponatremia with a sodium of 123. TSH is 9.25. A chest CTA scan documents an ectatic ascending thoracic aorta measuring 5cm. There are chronic emphysematous changes. There are diffuse bilateral pulmonary infiltrates. No evidence of pulmonary embolism. Patient has a history of hypothyroidism. Patient also smokes cigarettes. He is known to [facility] and was recently seen by Dr Walker for anticipated carpal tunnel surgery. His latest cardiac workup was done January 2018. He had a stress thallium stress test that reports a small fixed mid apical wall defect with no reversible ischemia and a well preserved left ventricular ejection fraction 55% on an echocardiogram. Cardiology to transitioned the patient to oral amiodarone for suppression of atrial tach ycardia. Repeat echocardiogram revealed moderate to severe aortic stenosis with EF of 55-60%. 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 Patient stabilizing from cardiac standpoint and was cleared by cardiology to DC home but over the last 36 hours has had a significant drop in H/H. He started having dark stools that were loose. He has had no N/V/hematemesis. A colonoscopy 3 years ago (jared ACOSTA per patient) showed 2 polyps, but he has not had an upper endoscopy, nor does he have a hx of PUD. The patient was seen by GI in consultation for melena. Hospitalist Physical - Constitutional Vitals: Temp Pulse Resp BP Pulse Ox 97.9 F 88 18 133/37 96 01/10/19 08:41 01/10/19 08:41 01/10/19 08:52 01/10/19 08:41 01/10/19 08:41 General appearance: Present: no acute distress - EENT Eyes: Present: PERRL, EOM intact ENT: hearing intact, clear oral mucosa, dentition normal - Neck Neck: Present: supple, normal ROM - Respiratory Respiratory effort: normal Respiratory: bilateral: CTA - Cardiovascular Rhythm: regular Heart Sounds: Present: S1 & S2. Absent: gallop, rub - Extremities Extremities: no ischemia, No edema, Full ROM - Abdominal General gastrointestinal: soft, non-tender, non-distended, normal bowel sounds - Integumentary Integumentary: Present: clear, warm, dry - Neurologic Neurologic: CNII-XII intact, moves all extremities Results - Labs CBC & Chem 7: 01/10/19 03:25 01/10/19 03:25 Labs: Laboratory Last Values WBC 21.0 K/mm3 (4.5-11.0) H 01/10/19 03:25 RBC 2.11 M/mm3 (3.65-5.03) L 01/10/19 03:25 Hgb 6.8 gm/dl (11.8-15.2) L D 01/10/19 03:25 Hct 20.3 % (35.5-45.6) L D 01/10/19 03:25 MCV 97 fl (84-94) H 01/10/19 03:25 MCH 32 pg (28-32) 01/10/19 03:25 MCHC 34 % (32-34) 01/10/19 03:25 RDW 15.5 % (13.2-15.2) H 01/10/19 03:25 Plt Count 583 K/mm3 (140-440) H 01/10/19 03:25 Lymph % (Auto) 5.5 % (13.4-35.0) L 01/07/19 03:46 Day % (Auto) [place] 01/10/19 03:25 Eos % (Auto) [place] 01/10/19 03:25 Baso % (Auto) 0.3 % (0.0-1.8) 01/07/19 03:46 Lymph # 0.8 K/mm3 (1.2-5.4) L 01/07/19 03:46 Day # 1.4 K/mm3 (0.0-0.8) H 01/08/19 06:14 Eos # [place] 01/10/19 03:25 Baso # [place] 01/10/19 03:25 Add Manual Diff Complete 01/10/19 03:25 Total Counted 100 01/10/19 03:25 Seg Neutrophils % [place] 01/10/19 03:25 Seg Neuts % (Manual) 64.0 % (40.0-70.0) 01/10/19 03:25 Band Neutrophils % 16.0 % 01/10/19 03:25 Lymphocytes % (Manual) 9.0 % (13.4-35.0) L 01/10/19 03:25 Reactive Lymphs % (Man) 0 % 01/10/19 03:25 Monocytes % (Manual) 5.0 % (0.0-7.3) 01/10/19 03:25 Eosinophils % (Manual) 1.0 % (0.0-4.3) 01/10/19 03:25 Basophils % (Manual) 1.0 % (0.0-1.8) 01/10/19 03:25 Metamyelocytes % 2.0 % 01/10/19 03:25 Myelocytes % 2.0 % 01/10/19 03:25 Promyelocytes % 0 % 01/10/19 03:25 Blast Cells % 0 % 01/10/19 03:25 Nucleated RBC % Not Reportable 01/10/19 03:25 Seg Neutrophils # [place] 01/10/19 03:25 Seg Neutrophils # Man 13.4 K/mm3 (1.8-7.7) H 01/10/19 03:25 Band Neutrophils # 3.4 K/mm3 01/10/19 03:25 Lymphocytes # (Manual) 1.9 K/mm3 (1.2-5.4) 01/10/19 03:25 Abs React Lymphs (Man) 0.0 K/mm3 01/10/19 03:25 Monocytes # (Manual) 1.1 K/mm3 (0.0-0.8) H 01/10/19 03:25 Eosinophils # (Manual) 0.2 K/mm3 (0.0-0.4) 01/10/19 03:25 Basophils # (Manual) 0.2 K/mm3 (0.0-0.1) H 01/10/19 03:25 Metamyelocytes # 0.4 K/mm3 01/10/19 03:25 Myelocytes # 0.4 K/mm3 01/10/19 03:25 Promyelocytes # 0.0 K/mm3 01/10/19 03:25 Blast Cells # 0.0 K/mm3 01/10/19 03:25 WBC Morphology Not Reportable 01/10/19 03:25 Hypersegmented Neuts Not Reportable 01/10/19 03:25 Hyposegmented Neuts Not Reportable 01/10/19 03:25 Hypogranular Neuts Not Reportable 01/10/19 03:25 Smudge Cells Not Reportable 01/10/19 03:25 Toxic Granulation Not Reportable 01/10/19 03:25 Toxic Vacuolation Not Reportable 01/10/19 03:25 Dohle Bodies Not Reportable 01/10/19 03:25 Pelger-Huet Anomaly Not Reportable 01/10/19 03:25 Eugenio Rods Not Reportable 01/10/19 03:25 Platelet Estimate Consistent w auto 01/10/19 03:25 Clumped Platelets Not Reportable 01/10/19 03:25 Plt Clumps, EDTA Not Reportable 01/10/19 03:25 Large Platelets Not Reportable 01/10/19 03:25 Giant Platelets Not Reportable 01/10/19 03:25 Platelet Satelliting Not Reportable 01/10/19 03:25 Plt Morphology Comment Not Reportable 01/10/19 03:25 RBC Morphology Not Reportable 01/10/19 03:25 Dimorphic RBCs Not Reportable 01/10/19 03:25 Polychromasia Not Reportable 01/10/19 03:25 Hypochromasia Few 01/10/19 03:25 Poikilocytosis Rare 01/10/19 03:25 Anisocytosis Few 01/10/19 03:25 Microcytosis Not Reportable 01/10/19 03:25 Macrocytosis Not Reportable 01/10/19 03:25 Spherocytes Not Reportable 01/10/19 03:25 Pappenheimer Bodies Not Reportable 01/10/19 03:25 Sickle Cells Not Reportable 01/10/19 03:25 Target Cells Not Reportable 01/10/19 03:25 Tear Drop Cells Not Reportable 01/10/19 03:25 Ovalocytes Not Reportable 01/10/19 03:25 Helmet Cells Not Reportable 01/10/19 03:25 Belle-Beckett Bodies Not Reportable 01/10/19 03:25 Hazard Rings Not Reportable 01/10/19 03:25 Jame Cells Not Reportable 01/10/19 03:25 Bite Cells Not Reportable 01/10/19 03:25 Crenated Cell Not Reportable 01/10/19 03:25 Elliptocytes Not Reportable 01/10/19 03:25 Acanthocytes (Spur) Not Reportable 01/10/19 03:25 Rouleaux Not Reportable 01/10/19 03:25 Hemoglobin C Crystals Not Reportable 01/10/19 03:25 Schistocytes Not Reportable 01/10/19 03:25 Malaria parasites Not Reportable 01/10/19 03:25 Derick Bodies Not Reportable 01/10/19 03:25 Hem Pathologist Commnt No 01/10/19 03:25 PT 15.6 Sec. (12.2-14.9) H 01/05/19 21:47 INR 1.17 (0.87-1.13) H 01/05/19 21:47 APTT 24.1 Sec. (24.2-36.6) L 01/05/19 21:47 POC ABG pH 7.446 (7.35-7.45) 01/07/19 21:09 POC ABG pCO2 44.1 (35-45) 01/07/19 21:09 POC ABG pO2 55 (80-105) L 01/07/19 21:09 POC ABG HCO3 30.4 (22-26 mml/L) 01/07/19 21:09 POC ABG Total CO2 32 (23-27mmol/L) 01/07/19 21:09 POC ABG O2 Sat 89 01/07/19 21:09 POC ABG Base Excess 6 ((-2) - (+3)mmol/L) 01/07/19 21:09 FiO2 32 % 01/07/19 21:09 Sodium 132 mmol/L (137-145) L 01/10/19 03:25 Potassium 5.4 mmol/L (3.6-5.0) H 01/10/19 03:25 Chloride 99.0 mmol/L (98-107) 01/10/19 03:25 Carbon Dioxide 20 mmol/L (22-30) L D 01/10/19 03:25 Anion Gap 18 mmol/L 01/10/19 03:25 BUN 63 mg/dL (9-20) H 01/10/19 03:25 Creatinine 0.7 mg/dL (0.8-1.5) L 01/10/19 03:25 Estimated GFR > 60 ml/min 01/10/19 03:25 BUN/Creatinine Ratio 90 % 01/10/19 03:25 Glucose 119 mg/dL (75-100) H 01/10/19 03:25 POC Glucose 100 (70-105) 01/09/19 23:54 Lactic Acid 1.60 mmol/L (0.7-2.0) 01/08/19 20:57 Calcium 7.0 mg/dL (8.4-10.2) L 01/10/19 03:25 Total Bilirubin 0.80 mg/dL (0.1-1.2) 01/05/19 21:47 AST 115 units/L (5-40) H 01/05/19 21:47 ALT 62 units/L (7-56) H 01/05/19 21:47 Alkaline Phosphatase 168 units/L (35-129) H 01/05/19 21:47 Total Creatine Kinase 45 units/L (55-170) L 01/05/19 21:47 CK-MB (CK-2) 1.3 ng/mL (0.0-4.0) 01/05/19 21:47 CK-MB (CK-2) Rel Index 2.8 (0-4) 01/05/19 21:47 Troponin T < 0.010 ng/mL (0.00-0.029) 01/06/19 18:58 C-Reactive Protein 7.80 mg/dL (0.00-1.30) H 01/08/19 19:09 NT-Pro-B Natriuret Pep 8941 pg/mL (0-900) H 01/06/19 07:24 Total Protein 6.6 g/dL (6.3-8.2) 01/05/19 21:47 Albumin 1.5 g/dL (3.9-5) L 01/05/19 21:47 Albumin/Globulin Ratio 0.3 % 01/05/19 21:47 Lipase 32 units/L (13-60) 01/05/19 21:47 TSH 9.270 mlU/mL (0.270-4.200) H 01/06/19 07:24 Free T4 0.76 ng/dL (0.76-1.46) 01/06/19 07:24 Urine Color Yellow (Yellow) 01/05/19 21:39 Urine Turbidity Clear (Clear) 01/05/19 21:39 Urine pH 6.0 (5.0-7.0) 01/05/19 21:39 Ur Specific Anderson 1.005 (1.003-1.030) 01/05/19 21:39 Urine Protein <15 mg/dl mg/dL (Negative) 01/05/19 21:39 Urine Glucose (UA) Neg mg/dL (Negative) 01/05/19 21:39 Urine Ketones Neg mg/dL (Negative) 01/05/19 21:39 Urine Blood Neg (Negative) 01/05/19 21:39 Urine Nitrite Neg (Negative) 01/05/19 21:39 Urine Bilirubin Neg (Negative) 01/05/19 21:39 Urine Urobilinogen < 2.0 mg/dL (<2.0) 01/05/19 21:39 Ur Leukocyte Esterase Neg (Negative) 01/05/19 21:39 Urine WBC (Auto) 1.0 /HPF (0.0-6.0) 01/05/19 21:39 Urine RBC (Auto) 1.0 /HPF (0.0-6.0) 01/05/19 21:39 Urine Mucus Few /HPF 01/05/19 21:39 Blood Type A POSITIVE 01/10/19 04:53 Antibody Screen Negative 01/10/19 04:53 Crossmatch See Detail 01/10/19 04:53 Active Medications - Current Medications Current Medications: Generic Name Dose Route Start Last Admin Trade Name Freq PRN Reason Stop Dose Admin Acetaminophen 650 mg 01/06/19 01:50 01/08/19 01:54 Tylenol PO 650 mg Q4H PRN Administration Pain, Mild (1-3) Acetaminophen/Hydrocodone Bitart 1 each 01/07/19 21:36 01/09/19 11:26 [place] 5/325 PO 1 each Q6H PRN Administration Pain, Moderate (4-6) Albuterol/Ipratropium 1 ampul 01/06/19 03:45 01/10/19 09:44 Duoneb *Not For Prn Use* IH Not Given Q6HRT JONI Amiodarone HCl 200 mg 01/09/19 10:00 01/10/19 10:58 Cordarone PO 200 mg QDAY JONI Administration Arformoterol Tartrate 15 mcg 01/08/19 20:00 01/10/19 09:43 Brovana Nebu IH 15 mcg Q12HRT JONI Administration Budesonide 0.5 mg 01/08/19 20:00 01/10/19 09:43 Pulmicort IH 0.5 mg Q12HRT JONI Administration Diltiazem HCl 180 mg 01/09/19 10:00 01/10/19 10:43 Cardizem Cd PO Not Given QDAY JONI Ferrous Sulfate 325 mg 01/06/19 10:00 01/10/19 10:38 Feosol PO 325 mg DAILY JONI Administration Sodium Chloride 1,000 mls @ 75 mls/hr 01/06/19 05:00 01/09/19 21:41 Nacl 0.9% 1000 Ml IV 75 mls/hr DIRECT JONI Administration Sodium Chloride 1,000 mls @ 100 mls/hr 01/10/19 03:00 01/10/19 03:24 Nacl 0.9% 1000 Ml IV 100 mls/hr DIRECT JONI Administration Pantoprazole Sodium 80 mg/ 100 mls @ 10 mls/hr 01/10/19 05:00 01/10/19 05:39 Sodium Chloride IV 8 mg/hr DIRECT JONI 10 mls/hr Administration 8 MG/HR Levofloxacin 500 mg 01/08/19 19:00 01/10/19 10:39 Levaquin PO 01/12/19 10:01 500 mg Q24HR JONI Administration Levothyroxine Sodium 112 mcg 01/06/19 06:00 01/10/19 06:10 Synthroid PO Not Given DAILY@0600 JONI Lisinopril 5 mg 01/06/19 22:00 01/09/19 21:37 Zestril PO 5 mg HS JONI Administration Lorazepam 1 mg 01/06/19 01:57 01/10/19 10:54 Ativan IV 1 mg Q4H PRN Administration Anxiety Morphine Sulfate 2 mg 01/10/19 05:28 01/10/19 08:42 Morphine IV 2 mg Q4H PRN Administration Pain, Moderate (4-6) Ondansetron HCl 4 mg 01/06/19 01:52 Zofran IV Q8H PRN Nausea And Vomiting Oxycodone/Acetaminophen 1 tab 01/09/19 12:45 01/10/19 01:44 Percocet 5/325 PO 1 tab Q4H PRN Administration Pain, Moderate (4-6) Zolpidem Tartrate 5 mg 01/06/19 23:57 01/09/19 21:37 Ambien PO 5 mg QHS PRN Administration Sleep
[2019-01-10] MEDS ORDERED: WATER FOR IRRIG STERILE IR ONE (15:00)
[2019-01-10] MEDS ORDERED: NACL 0.9% 1000 ML 1,000 ML ONE (15:01)
[2019-01-10] MEDS ORDERED: WATER FOR IRRIG STERILE ONE (15:01)
[2019-01-10] MEDS ORDERED: VERSED ONE (15:06)
[2019-01-10] MEDS ORDERED: XYLOCAINE 1% 20 mL ONE (15:06)
[2019-01-10] MEDS ORDERED: DIPRIVAN 10 MG/ML IV ONE ×2 (15:07)
--- NOTE | 2019-01-10 15:22 | Anesthesia Consultation ---
Anesthesia Consult and Med Hx Date of service: 01/10/19 - Airway Anesthetic Teeth Evaluation: Edentulous Mental/Hyoid Distance: Adequate Mallampati Class: Class I Intubation Access Assessment: Probably Good - Pulmonary Exam CTA: No (increased WOB, course expiratory breath sounds; good air entry bilaterally) - Cardiac Exam Cardiac Exam: RRR - Pre-Operative Health Status ASA Pre-Surgery Classification: ASA4 Proposed Anesthetic Plan: MAC - Pulmonary Hx Smoking: Yes Hx Asthma: Yes Hx Respiratory Symptoms: Yes COPD: Yes Hx Pneumonia: Yes (diagnosed this admission) Hx Sleep Apnea: No - Cardiovascular System Hx Hypertension: Yes Hx Angina: Yes (on admission; now resolved) 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 He received 1 unit pRBCs prior to procedure for Hb 6.8. Increased work of breathing which he says in worse today than yesterday possibly 2/2 anemia.
[2019-01-10] MEDS ORDERED: KETALAR ONE (15:44)
--- NOTE | 2019-01-10 16:04 | Anesthesia Day of Surgery ---
Anesthesia Day of Surgery - Day of Surgery Patient Examined: Yes Patient H&P Reviewed: Yes Patient is NPO: Yes
--- NOTE | 2019-01-10 16:10 | Post Operative Note ---
Pre-op diagnosis: Melena Post-op diagnosis: other (Gastric Ulcer) Findings: 1. Normal duodenum (some dried blood) 2. 1cm flat ulcer on greater curve/body, with a moderate visible vessel present - Endoclip x 1 - Cold bx of antrum to r/o H pylori 3. Clots/fluid in fundus that could not be suctioned, but no fresh blood 4. No esophageal varices Procedure: EGD with cold biopsy and endoscopic clip for bleeding control Anesthesia: MAC Surgeon: DAYANA WOODARD Estimated blood loss: minimal Pathology: list (1. Gastric antrum) Specimen disposition: to lab Condition: stable Disposition: floor (Recs: 1. Change protonix to BID. 2. Avoid all NSAIDs, even cardiac ASA for next 3 days. 3. Advance to full liquid diet. 4. D/C tobacco abuse. 5. Minimize steroids if possible. 6. Embolization if fails to resolve with clipping.)
--- NOTE | 2019-01-10 16:34 | Operative Report ---
PROCEDURE PERFORMED: Esophagogastroduodenoscopy with cold biopsy and endoscopic clipping for bleeding control. PREOPERATIVE DIAGNOSIS: Melena. POSTOPERATIVE DIAGNOSIS: Gastric ulcer with evidence of recent hemorrhage. ENDOSCOPIST: Ryan Banks MD INSTRUMENT: Synapticon video endoscope. MEDICATIONS: MAC anesthesia by Anesthesia Services. COMPLICATIONS: No apparent complications. ESTIMATED BLOOD LOSS: Minimal. SPECIMENS: Random biopsy of gastric antrum to rule out H. pylori. IMPLANTS: Endoscopic Resolution clip x 1 in the gastric body for bleeding control. ASSISTANTS: None. CONDITION AT COMPLETION: Stable. TECHNIQUE: The patient was informed of the risks and benefits of the procedure. He signed the informed consent to proceed. He was placed in left lateral decubitus position. The above sedative medications were given. His vital signs remained stable throughout the procedure. The instrument was advanced from the mouth to the second portion of the duodenum under direct visualization. At that point, the bowel was insufflated and the endoscope was slowly withdrawn. FINDINGS: 1. Normal duodenum, but some dried blood was present that was lavaged as well as possible. 2. A 1 cm flat ulcer on the greater curve of the stomach in the body, with a moderate sized visible vessel in the center. a. Resolution endoclip x 1 was placed across the visible vessel and the mucosal defect with a good post-endoscopic appearance. b. Random cold biopsy taken of the antrum to rule out H. pylori. 3. Clots and fluid were seen in the fundus that was suctioned as well as possible, but there were portions of the fundus that could not be visualized due to the clots present. 4. No evidence of esophageal varices. RECOMMENDATIONS: 1. Change Protonix to twice daily therapy. 2. Avoid all nonsteroidal anti-inflammatory drugs including cardiac aspirin, for at least the next 3 days. 3. Advance to full liquid diet. 4. The patient should discontinue tobacco. 5. Minimize steroids if possible. 6. Embolization if the patient fails to resolve bleeding with endoscopic clipping. JOB# [id number] TASIA/LORRIE
[2019-01-10 18:17] LABS: Hematocrit 21.6 % (35.5-45.6); Hemoglobin 7.2 gm/dl (11.8-15.2); Mean Corpuscular HGB Conc 33 % (32-34); Mean Corpuscular Volume 96 fl (84-94); Platelet Count 431 K/mm3 (140-440); Red Blood Count 2.25 M/mm3 (3.65-5.03); Red Cell Distribution Width 15.7 % (13.2-15.2)
--- NOTE | 2019-01-10 18:56 | Post Anesthesia Evaluation ---
- Post Anesthesia Evaluation Patient Participated: Yes Airway Patent: Yes Stable Respiratory Function: Yes (SpO2 90-94% on 4L NC (pre-procedure baseline)) Nausea/Vomiting: No Temp > 96.8F: Yes Pain Manageable: Yes Adequeate Hydration: Yes Anesthesia Complications: No
[2019-01-10 20:51] LABS: Total Cells Counted 200
[2019-01-10 20:52] LABS: Anisocytosis 1+; Band Neutrophils # (Manual) 0.1 K/mm3; Basophils % (Manual) 0 % (0.0-1.8); Eosinophils % (Manual) 0 % (0.0-4.3); Macrocytosis Few
[2019-01-10 20:53] LABS: Platelet Estimate Consistent w Auto; Target Cells Few
[2019-01-10] MEDS: NORCO 5/325 PO PRN (22:15)
[2019-01-10] MEDS: PROTONIX IV SCH (22:16)
[2019-01-11] MEDS: DUONEB *Not for PRN Use IH SCH ×4 (02:59→22:28)
[2019-01-11] MEDS: PERCOCET 5/325 PO PRN ×3 (03:01→22:49)
[2019-01-11] MEDS: SYNTHROID PO SCH (06:14)
[2019-01-11 06:53] LABS: Mean Corpuscular HGB Conc 33 % (32-34); Mean Corpuscular Volume 96 fl (84-94); Platelet Count 358 K/mm3 (140-440); Red Blood Count 1.83 M/mm3 (3.65-5.03); Red Cell Distribution Width 15.5 % (13.2-15.2)
[2019-01-11 07:07] LABS: Hematocrit 17.6 % (35.5-45.6); Hemoglobin 5.7 gm/dl (11.8-15.2)
[2019-01-11] MEDS: PULMICORT IH SCH ×2 (07:36→22:28)
[2019-01-11] MEDS ORDERED: NACL 0.9% 500 ML 500 ML IV ONE ×2 (07:36→07:39)
[2019-01-11] MEDS: BROVANA NEBU IH SCH ×2 (07:36→22:28)
[2019-01-11 07:45] LABS: Basophils % (Manual) 0 % (0.0-1.8); Eosinophils % (Manual) 0 % (0.0-4.3); Total Cells Counted 100
[2019-01-11 07:47] LABS: Giant Platelets Few; Hypochromasia Few; Platelet Estimate Consistent w Auto
[2019-01-11] MEDS: FEOSOL PO SCH (09:20)
[2019-01-11] MEDS: CORDARONE PO SCH (09:21)
[2019-01-11] MEDS: PROTONIX IV SCH ×2 (09:21→22:15)
[2019-01-11] MEDS: THERAGRAN-M Tab PO SCH (09:21)
[2019-01-11] MEDS: LEVAQUIN PO SCH (09:21)
[2019-01-11] MEDS: CARDIZEM CD PO SCH (09:26)
[2019-01-11 10:15] LABS: Hemoglobin 6.2 gm/dl (11.8-15.2)
[2019-01-11 10:20] LABS: Hematocrit 17.8 % (35.5-45.6)
--- NOTE | 2019-01-11 10:32 | Progress Note ---
Assessment and Plan Assessment and plan: GI bleed/Melena. EGD revealed 1cm flat ulcer on greater curve/body, with a moderate visible vessel present. Endo Clip 1 with cold biopsy of antrum to rule out H. pylori. No esophageal varices. Follow-up H&H this morning revealed hemoglobin 5.7. 2 more units PRBCs ordered. Vascular surgery consult for possible embolization. Sepsis. Resolved. Patient needs criteria given the tachycardia, leukocytosis and diagnosis of pneumonia. Follow-up blood and urine cultures. Thus far negative. Leukocytosis improving. Bilateral pneumonia. Continue IV antibiotics. Follow serial chest x-ray. Right lower extremity pain. Doppler reveals questionable right abscess versus hematoma. Patient denies any trauma. Surgery evaluated patient. Chronic lung disease/COPD. Compensated. Acute hypoxemic respiratory failure. Etiology secondary to above. Chest CTA documents an ectatic ascending thoracic aorta measuring 5cm. There are chronic emphysematous changes. There are diffuse bilateral pulmonary infiltrates. No evidence of pulmonary embolism. SVT/atrial tachycardia. Resolved. Patient previously S/p adenosine Continue amiodarone by mouth per cardiology recommendations. No evidence of PE on Chest CTA. Well preserved LVEF on echo 01/2018. Small fixed apical wall defect, no reversible ischemia on MPI 01/2018. Cardiology following. Repeat echocardiogram revealed moderate to severe aortic stenosis. EF 55-60%. Hyponatremia. Improved. 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 Hypothyroidism. TSH is 9.25. Continue Synthroid. Elevated LFTs. Etiology likely secondary to sepsis/hypotension. History Interval history: Patient is a 78 year old male who was brought to the emergency department with complaints of generalized pain. A cardiac consultation was requested for atrial fibrillation. On review, his EKG is wide complex tachycardia consistent with SVT. There is no evidence of atrial fibrillation. The patient was initially started on Cardizem drip but developed hypotension. Amiodarone drip was then initiated. On admission, Initial labs revealed leukocytosis, WBC of 26.5 and severe hyponatremia with a sodium of 123. TSH is 9.25. A chest CTA scan documents an ectatic ascending thoracic aorta measuring 5cm. There are chronic emphysematous changes. There are diffuse bilateral pulmonary infiltrates. No evidence of pulmonary embolism. Patient has a history of hypothyroidism. Patient also smokes cigarettes. He is known to [facility] and was recently seen by Dr Walker for anticipated carpal tunnel surgery. His latest cardiac workup was done January 2018. He had a stress thallium stress test that reports a small fixed mid apical wall defect with no reversible ischemia and a well preserved left ventricular ejection fraction 55% on an echocardiogram. Cardiology to transitioned the patient to oral amiodarone for suppression of atrial tachycardia. Repeat echocardiogram revealed moderate to severe aortic stenosis with EF of 55-60%. 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 Patient stabilizing from cardiac standpoint and was cleared by cardiology to DC home but over the last 36 hours has had a significant drop in H/H. He started having dark stools that were loose. He has had no N/V/hematemesis. A colonoscopy 3 years ago (jared ACOSTA per patient) showed 2 polyps, but he has not had an upper endoscopy, nor does he have a hx of PUD. The patient was seen by GI in consultation for melena. Hospitalist Physical - Constitutional Vitals: Temp Pulse Resp BP Pulse Ox 97.6 F 81 20 90/41 96 01/11/19 04:18 01/11/19 09:26 01/11/19 08:43 01/11/19 09:26 01/11/19 08:43 General appearance: Present: no acute distress - EENT Eyes: Present: PERRL, EOM intact ENT: hearing intact, clear oral mucosa, dentition normal - Neck Neck: Present: supple, normal ROM - Respiratory Respiratory effort: normal Respiratory: bilateral: CTA - Cardiovascular Rhythm: regular Heart Sounds: Present: S1 & S2. Absent: gallop, rub - Extremities Extremities: no ischemia, No edema, Full ROM - Abdominal General gastrointestinal: soft, non-tender, non-distended, normal bowel sounds - Integumentary Integumentary: Present: clear, warm, dry - Neurologic Neurologic: CNII-XII intact, moves all extremities Results - Labs CBC & Chem 7: 01/11/19 09:22 01/10/19 03:25 Labs: Laboratory Last Values WBC 24.8 K/mm3 (4.5-11.0) H 01/11/19 06:14 RBC 1.83 M/mm3 (3.65-5.03) L 01/11/19 06:14 Hgb 6.2 gm/dl (11.8-15.2) L 01/11/19 09:22 Hct 17.8 % (35.5-45.6) L* 01/11/19 09:22 MCV 96 fl (84-94) H 01/11/19 06:14 MCH 31 pg (28-32) 01/11/19 06:14 MCHC 33 % (32-34) 01/11/19 06:14 RDW 15.5 % (13.2-15.2) H 01/11/19 06:14 Plt Count 358 K/mm3 (140-440) 01/11/19 06:14 Lymph % (Auto) 5.5 % (13.4-35.0) L 01/07/19 03:46 [place] % (Auto) Enterprise Application Developer 01/10/19 03:25 Eos % (Auto) Enterprise Application Developer 01/10/19 03:25 Baso % (Auto) 0.3 % (0.0-1.8) 01/07/19 03:46 Lymph # 0.8 K/mm3 (1.2-5.4) L 01/07/19 03:46 [place] # 1.4 K/mm3 (0.0-0.8) H 01/08/19 06:14 Eos # Enterprise Application Developer 01/10/19 03:25 Baso # Enterprise Application Developer 01/10/19 03:25 Add Manual Diff Complete 01/11/19 06:14 Total Counted 100 01/11/19 06:14 Seg Neutrophils % Enterprise Application Developer 01/10/19 03:25 Seg Neuts % (Manual) 88.0 % (40.0-70.0) H 01/11/19 06:14 Band Neutrophils % 0 % 01/11/19 06:14 Lymphocytes % (Manual) 6.0 % (13.4-35.0) L 01/11/19 06:14 Reactive Lymphs % (Man) 0 % 01/11/19 06:14 Monocytes % (Manual) 6.0 % (0.0-7.3) 01/11/19 06:14 Eosinophils % (Manual) 0 % (0.0-4.3) 01/11/19 06:14 Basophils % (Manual) 0 % (0.0-1.8) 01/11/19 06:14 Metamyelocytes % 0 % 01/11/19 06:14 Myelocytes % 0 % 01/11/19 06:14 Promyelocytes % 0 % 01/11/19 06:14 Blast Cells % 0 % 01/11/19 06:14 Nucleated RBC % Not Reportable 01/11/19 06:14 Seg Neutrophils # Enterprise Application Developer 01/10/19 03:25 Seg Neutrophils # Man 21.8 K/mm3 (1.8-7.7) H 01/11/19 06:14 Band Neutrophils # 0.0 K/mm3 01/11/19 06:14 Lymphocytes # (Manual) 1.5 K/mm3 (1.2-5.4) 01/11/19 06:14 Abs React Lymphs (Man) 0.0 K/mm3 01/11/19 06:14 Monocytes # (Manual) 1.5 K/mm3 (0.0-0.8) H 01/11/19 06:14 Eosinophils # (Manual) 0.0 K/mm3 (0.0-0.4) 01/11/19 06:14 Basophils # (Manual) 0.0 K/mm3 (0.0-0.1) 01/11/19 06:14 Metamyelocytes # 0.0 K/mm3 01/11/19 06:14 Myelocytes # 0.0 K/mm3 01/11/19 06:14 Promyelocytes # 0.0 K/mm3 01/11/19 06:14 Blast Cells # 0.0 K/mm3 01/11/19 06:14 WBC Morphology Not Reportable 01/11/19 06:14 Hypersegmented Neuts Not Reportable 01/11/19 06:14 Hyposegmented Neuts Not Reportable 01/11/19 06:14 Hypogranular Neuts Not Reportable 01/11/19 06:14 Smudge Cells Not Reportable 01/11/19 06:14 Toxic Granulation Not Reportable 01/11/19 06:14 Toxic Vacuolation Not Reportable 01/11/19 06:14 Dohle Bodies Not Reportable 01/11/19 06:14 Pelger-Huet Anomaly Not Reportable 01/11/19 06:14 Eugenio Rods Not Reportable 01/11/19 06:14 Platelet Estimate Consistent w auto 01/11/19 06:14 Clumped Platelets Not Reportable 01/11/19 06:14 Plt Clumps, EDTA Not Reportable 01/11/19 06:14 Large Platelets Not Reportable 01/11/19 06:14 Giant Platelets Few 01/11/19 06:14 Platelet Satelliting Not Reportable 01/11/19 06:14 Plt Morphology Comment Not Reportable 01/11/19 06:14 RBC Morphology Not Reportable 01/11/19 06:14 Dimorphic RBCs Not Reportable 01/11/19 06:14 Polychromasia Not Reportable 01/11/19 06:14 Hypochromasia Few 01/11/19 06:14 Poikilocytosis Not Reportable 01/11/19 06:14 Anisocytosis Not Reportable 01/11/19 06:14 Microcytosis Not Reportable 01/11/19 06:14 Macrocytosis Not Reportable 01/11/19 06:14 Spherocytes Not Reportable 01/11/19 06:14 Pappenheimer Bodies Not Reportable 01/11/19 06:14 Sickle Cells Not Reportable 01/11/19 06:14 Target Cells Not Reportable 01/11/19 06:14 Tear Drop Cells Not Reportable 01/11/19 06:14 Ovalocytes Not Reportable 01/11/19 06:14 Helmet Cells Not Reportable 01/11/19 06:14 [place] Bodies Not Reportable 01/11/19 06:14 [place] Rings Not Reportable 01/11/19 06:14 [place] Cells Not Reportable 01/11/19 06:14 Bite Cells Not Reportable 01/11/19 06:14 Crenated Cell Not Reportable 01/11/19 06:14 Elliptocytes Few 01/11/19 06:14 Acanthocytes (Spur) Not Reportable 01/11/19 06:14 Rouleaux Not Reportable 01/11/19 06:14 Hemoglobin C Crystals Not Reportable 01/11/19 06:14 Schistocytes Not Reportable 01/11/19 06:14 Malaria parasites Not Reportable 01/11/19 06:14 Derick Bodies Not Reportable 01/11/19 06:14 Hem Pathologist Commnt No 01/11/19 06:14 PT 15.6 Sec. (12.2-14.9) H 01/05/19 21:47 INR 1.17 (0.87-1.13) H 01/05/19 21:47 APTT 24.1 Sec. (24.2-36.6) L 01/05/19 21:47 POC ABG pH 7.446 (7.35-7.45) 01/07/19 21:09 POC ABG pCO2 44.1 (35-45) 01/07/19 21:09 POC ABG pO2 55 (80-105) L 01/07/19 21:09 POC ABG HCO3 30.4 (22-26 mml/L) 01/07/19 21:09 POC ABG Total CO2 32 (23-27mmol/L) 01/07/19 21:09 POC ABG O2 Sat 89 01/07/19 21:09 POC ABG Base Excess 6 ((-2) - (+3)mmol/L) 01/07/19 21:09 FiO2 32 % 01/07/19 21:09 Sodium 132 mmol/L (137-145) L 01/10/19 03:25 Potassium 5.4 mmol/L (3.6-5.0) H 01/10/19 03:25 Chloride 99.0 mmol/L (98-107) 01/10/19 03:25 Carbon Dioxide 20 mmol/L (22-30) L D 01/10/19 03:25 Anion Gap 18 mmol/L 01/10/19 03:25 BUN 63 mg/dL (9-20) H 01/10/19 03:25 Creatinine 0.7 mg/dL (0.8-1.5) L 01/10/19 03:25 Estimated GFR > 60 ml/min 01/10/19 03:25 BUN/Creatinine Ratio 90 % 01/10/19 03:25 Glucose 119 mg/dL (75-100) H 01/10/19 03:25 POC Glucose 100 (70-105) 01/09/19 23:54 Lactic Acid 1.60 mmol/L (0.7-2.0) 01/08/19 20:57 Calcium 7.0 mg/dL (8.4-10.2) L 01/10/19 03:25 Total Bilirubin 0.80 mg/dL (0.1-1.2) 01/05/19 21:47 AST 115 units/L (5-40) H 01/05/19 21:47 ALT 62 units/L (7-56) H 01/05/19 21:47 Alkaline Phosphatase 168 units/L (35-129) H 01/05/19 21:47 Total Creatine Kinase 45 units/L (55-170) L 01/05/19 21:47 CK-MB (CK-2) 1.3 ng/mL (0.0-4.0) 01/05/19 21:47 CK-MB (CK-2) Rel Index 2.8 (0-4) 01/05/19 21:47 Troponin T < 0.010 ng/mL (0.00-0.029) 01/06/19 18:58 C-Reactive Protein 7.80 mg/dL (0.00-1.30) H 01/08/19 19:09 NT-Pro-B Natriuret Pep 8941 pg/mL (0-900) H 01/06/19 07:24 Total Protein 6.6 g/dL (6.3-8.2) 01/05/19 21:47 Albumin 1.5 g/dL (3.9-5) L 01/05/19 21:47 Albumin/Globulin Ratio 0.3 % 01/05/19 21:47 Lipase 32 units/L (13-60) 01/05/19 21:47 TSH 9.270 mlU/mL (0.270-4.200) H 01/06/19 07:24 Free T4 0.76 ng/dL (0.76-1.46) 01/06/19 07:24 Urine Color Yellow (Yellow) 01/05/19 21:39 Urine Turbidity Clear (Clear) 01/05/19 21:39 Urine pH 6.0 (5.0-7.0) 01/05/19 21:39 Ur Specific [place] 1.005 (1.003-1.030) 01/05/19 21:39 Urine Protein <15 mg/dl mg/dL (Negative) 01/05/19 21:39 Urine Glucose (UA) Neg mg/dL (Negative) 01/05/19 21:39 Urine Ketones Neg mg/dL (Negative) 01/05/19 21:39 Urine Blood Neg (Negative) 01/05/19 21:39 Urine Nitrite Neg (Negative) 01/05/19 21:39 Urine Bilirubin Neg (Negative) 01/05/19 21:39 Urine Urobilinogen < 2.0 mg/dL (<2.0) 01/05/19 21:39 Ur Leukocyte Esterase Neg (Negative) 01/05/19 21:39 Urine WBC (Auto) 1.0 /HPF (0.0-6.0) 01/05/19 21:39 Urine RBC (Auto) 1.0 /HPF (0.0-6.0) 01/05/19 21:39 Urine Mucus Few /HPF 01/05/19 21:39 Blood Type A POSITIVE 01/10/19 04:53 Antibody Screen Negative 01/10/19 04:53 Crossmatch See Detail 01/10/19 04:53 Active Medications - Current Medications Current Medications: Generic Name Dose Route Start Last Admin Trade Name Freq PRN Reason Stop Dose Admin Acetaminophen 650 mg 01/06/19 01:50 01/08/19 01:54 Tylenol PO 650 mg Q4H PRN Administration Pain, Mild (1-3) Acetaminophen/Hydrocodone Bitart 1 each 01/07/19 21:36 01/10/19 22:15 [place] 5/325 PO 1 each Q6H PRN Administration Pain, Moderate (4-6) Albuterol/Ipratropium 1 ampul 01/06/19 03:45 01/11/19 07:37 Duoneb *Not For Prn Use* IH Not Given Q6HRT JONI Amiodarone HCl 200 mg 01/09/19 10:00 01/11/19 09:21 Cordarone PO 200 mg QDAY JONI Administration Arformoterol Tartrate 15 mcg 01/08/19 20:00 01/11/19 07:36 Brovana Nebu IH 15 mcg Q12HRT JONI Administration Budesonide 0.5 mg 01/08/19 20:00 01/11/19 07:36 Pulmicort IH 0.5 mg Q12HRT JONI Administration Diltiazem HCl 180 mg 01/09/19 10:00 01/11/19 09:26 Cardizem Cd PO Not Given QDAY JONI Ferrous Sulfate 325 mg 01/06/19 10:00 01/11/19 09:20 Feosol PO 325 mg DAILY JONI Administration Sodium Chloride 1,000 mls @ 75 mls/hr 01/06/19 05:00 01/09/19 21:41 Nacl 0.9% 1000 Ml IV 75 mls/hr DIRECT JONI Administration Sodium Chloride 1,000 mls @ 100 mls/hr 01/10/19 03:00 01/10/19 12:58 Nacl 0.9% 1000 Ml IV 100 mls/hr DIRECT JONI Administration Levofloxacin 500 mg 01/08/19 19:00 01/11/19 09:21 Levaquin PO 01/12/19 10:01 500 mg Q24HR JONI Administration Levothyroxine Sodium 112 mcg 01/06/19 06:00 01/11/19 06:14 Synthroid PO 112 mcg DAILY@0600 JONI Administration Lisinopril 5 mg 01/06/19 22:00 01/09/19 21:37 Zestril PO 5 mg HS JONI Administration Lorazepam 1 mg 01/06/19 01:57 01/10/19 10:54 Ativan IV 1 mg Q4H PRN Administration Anxiety Morphine Sulfate 1 mg 01/10/19 16:12 Morphine IV Q4H PRN Pain, Moderate (4-6) Multivitamins/Minerals 1 each 01/11/19 10:00 01/11/19 09:21 Theragran-M Tab PO 1 each QDAY JONI Administration Ondansetron HCl 4 mg 01/06/19 01:52 Zofran IV Q8H PRN Nausea And Vomiting Oxycodone/Acetaminophen 1 tab 01/09/19 12:45 01/11/19 03:01 Percocet 5/325 PO 1 tab Q4H PRN Administration Pain, Moderate (4-6) Pantoprazole Sodium 40 mg 01/10/19 22:00 01/11/19 09:21 Protonix IV 40 mg BID JONI Administration Zolpidem Tartrate 5 mg 01/06/19 23:57 01/09/19 21:37 Ambien PO 5 mg QHS PRN Administration Sleep
--- NOTE | 2019-01-11 12:49 | Progress Note ---
Assessment and Plan Acute Hypoxemic Respiratory Failure Bilateral pneumonia Acute COPD exacerbation Bilateral Pleural Effusions Anemia with GI bleed CMOP (HFpEF) Aortic Stenosis SVT Hyponatremia Hypothyroidism Elevated LFTs -Supportive transfusions, for EGD today -Stop pharmacologic VTE prophylaxis, use SCDs - wean supplemental oxygen to keep sat's > 90% - continue bronchodilators with pulmonary hygiene per RT - add LABA & ICS (Brovana & pulmicort) -continue antibiotics with -smoking cessation counseling done - continue Levaquin for atypical coverage & double GNR in light of structural lung disease - management per cardiology - continue GI prophylaxis - continue gentle diuresis for pulmonary edema while monitoring renal function and hemodynamics Discussed with GI and hospitalist service - continue other care per attending / other consultants Subjective Date of service: 01/10/19 Principal diagnosis: Acute Hypoxemic Resp Failure; [place]rell. PNA; AE-COPD; [place]rell. Pleural Effusions Interval history: Patient is seen today for: Acute Hypoxemic Respiratory Failure; Bilateral pneumonia; Acute COPD exacerbation; Bilateral Pleural Effusions; CMOP (HFpEF); Aortic Stenosis; SVT Seen and examined at bedside; 24hour events reviewed; nursing and respiratory care staff consulted; no adverse overnight events reported to me; resting peacefullly in bed; remains on supplemental oxygen; wants to go home kennedy says his is sick; No N/V/F/C; + right lower ext swelling noted, doppler negative Getting bloood transfusion, GI bleed Objective Vital Signs - 12hr 01/11/19 01/11/19 01/11/19 04:18 07:36 07:46 Temperature 97.6 F Pulse Rate 105 H Pulse Rate [ 76 104 H Anterior Bilateral Throughout] Respiratory 20 Rate Respiratory 20 20 Rate [Anterior Bilateral Throughout] Blood Pressure 92/47 O2 Sat by Pulse 96 98 Oximetry 01/11/19 01/11/19 01/11/19 08:43 09:26 10:00 Temperature Pulse Rate 81 77 Pulse Rate [ Anterior Bilateral Throughout] Respiratory 20 Rate Respiratory Rate [Anterior Bilateral Throughout] Blood Pressure 90/41 O2 Sat by Pulse 96 Oximetry 01/11/19 01/11/19 01/11/19 10:54 10:58 11:13 Temperature 98 F 98 F 97.6 F Pulse Rate 87 91 H 74 Pulse Rate [ Anterior Bilateral Throughout] Respiratory 20 20 19 Rate Respiratory Rate [Anterior Bilateral Throughout] Blood Pressure 85/39 83/39 93/40 O2 Sat by Pulse 98 98 98 Oximetry 01/11/19 01/11/19 11:43 12:13 Temperature 97.8 F 97 F L Pulse Rate 80 79 Pulse Rate [ Anterior Bilateral Throughout] Respiratory 18 19 Rate Respiratory Rate [Anterior Bilateral Throughout] Blood Pressure 87/42 92/48 O2 Sat by Pulse 100 97 Oximetry Constitutional: no acute distress, alert, other (elderly looking CM, normocephalic and atraumatic with mildly increased resp effort at rest) Eyes: non-icteric ENT: oropharynx moist Neck: supple, no lymphadenopathy Effort: mildly labored Ascultation: Bilateral: diminished breath sounds, rhonchi Percussion: Bilateral: not dull Cardiovascular: regular rate and rhythm Gastrointestinal: normoactive bowel sounds, soft, non-tender, non-distended Integumentary: normal, rash Extremities: no cyanosis, pink and warm, pulses normal, no ischemia or pardeep chiae, edema (Right lower extremity) Neurologic: other (Patient sleeping at this time.) Psychiatric: mood appropriate, affect normal CBC and BMP: 01/11/19 09:22 01/10/19 03:25 ABG, PT/INR, D-dimer: ABG POC ABG pH 7.446 (7.35-7.45) 01/07/19 21:09 POC ABG pCO2 44.1 (35-45) 01/07/19 21:09 POC ABG pO2 55 (80-105) L 01/07/19 21:09 POC ABG HCO3 30.4 (22-26 mml/L) 01/07/19 21:09 POC ABG Total CO2 32 (23-27mmol/L) 01/07/19 21:09 POC ABG O2 Sat 89 01/07/19 21:09 PT/INR, D-dimer PT 15.6 Sec. (12.2-14.9) H 01/05/19 21:47 INR 1.17 (0.87-1.13) H 01/05/19 21:47 Abnormal lab findings: Abnormal Labs 01/05/19 01/05/19 01/05/19 21:47 21:47 21:47 WBC RBC Hgb Hct MCV RDW Plt Count Lymph % (Auto) [place] % (Auto) Lymph # [place] # Seg Neutrophils % Seg Neuts % (Manual) Lymphocytes % (Manual) Monocytes % (Manual) Seg Neutrophils # Seg Neutrophils # Man Lymphocytes # (Manual) Monocytes # (Manual) Basophils # (Manual) PT 15.6 H INR 1.17 H APTT 24.1 L POC ABG pH POC ABG pO2 Sodium 123 L Potassium 7.7 H* Chloride 85.4 L Carbon Dioxide BUN Creatinine 0.6 L Glucose Lactic Acid Calcium 7.8 L AST 115 H ALT 62 H Alkaline Phosphatase 168 H Total Creatine Kinase 45 L C-Reactive Protein NT-Pro-B Natriuret Pep Albumin 1.5 L TSH Crossmatch 01/05/19 01/05/19 01/06/19 22:07 23:16 02:16 WBC 26.5 H RBC Hgb Hct MCV 95 H RDW 15.6 H Plt Count 560 H Lymph % (Auto) [place] % (Auto) Lymph # [place] # Seg Neutrophils % Seg Neuts % (Manual) 91.0 H Lymphocytes % (Manual) 4.0 L Monocytes % (Manual) Seg Neutrophils # Seg Neutrophils # Man 24.1 H Lymphocytes # (Manual) 1.1 L Monocytes # (Manual) 1.3 H Basophils # (Manual) PT INR APTT POC ABG pH 7.494 H POC ABG pO2 Sodium 131 L D Potassium Chloride 94.0 L Carbon Dioxide BUN Creatinine 0.5 L Glucose 122 H Lactic Acid Calcium 7.3 L AST ALT Alkaline Phosphatase Total Creatine Kinase C-Reactive Protein NT-Pro-B Natriuret Pep Albumin TSH Crossmatch 01/06/19 01/06/19 01/06/19 07:24 07:24 07:24 WBC RBC Hgb Hct MCV RDW Plt Count Lymph % (Auto) [place] % (Auto) Lymph # [place] # Seg Neutrophils % Seg Neuts % (Manual) Lymphocytes % (Manual) Monocytes % (Manual) Seg Neutrophils # Seg Neutrophils # Man Lymphocytes # (Manual) Monocytes # (Manual) Basophils # (Manual) PT INR APTT POC ABG pH POC ABG pO2 Sodium 132 L Potassium Chloride 96.3 L Carbon Dioxide BUN Creatinine 0.5 L Glucose Lactic Acid Calcium 7.4 L AST ALT Alkaline Phosphatase Total Creatine Kinase C-Reactive Protein NT-Pro-B Natriuret Pep 8941 H Albumin TSH 9.270 H Crossmatch 01/07/19 01/07/19 01/07/19 03:46 03:46 21:09 WBC 14.9 H RBC Hgb Hct 35.2 L MCV 96 H RDW 15.7 H Plt Count 584 H Lymph % (Auto) 5.5 L [place] % (Auto) 10.0 H Lymph # 0.8 L [place] # 1.5 H Seg Neutrophils % 83.9 H Seg Neuts % (Manual) Lymphocytes % (Manual) Monocytes % (Manual) Seg Neutrophils # 12.5 H Seg Neutrophils # Man Lymphocytes # (Manual) Monocytes # (Manual) Basophils # (Manual) PT INR APTT POC ABG pH POC ABG pO2 55 L Sodium 134 L Potassium Chloride 95.1 L Carbon Dioxide 31 H BUN Creatinine 0.5 L Glucose 106 H Lactic Acid Calcium 7.6 L AST ALT Alkaline Phosphatase Total Creatine Kinase C-Reactive Protein NT-Pro-B Natriuret Pep Albumin TSH Crossmatch 01/08/19 01/08/19 01/08/19 06:14 06:14 19:09 WBC 14.8 H RBC Hgb Hct MCV 97 H RDW 15.9 H Plt Count 621 H Lymph % (Auto) [place] % (Auto) 9.7 H Lymph # [place] # 1.4 H Seg Neutrophils % 84.1 H Seg Neuts % (Manual) 87.0 H Lymphocytes % (Manual) 6.0 L Monocytes % (Manual) Seg Neutrophils # 12.4 H Seg Neutrophils # Man 12.9 H Lymphocytes # (Manual) 0.9 L Monocytes # (Manual) 1.0 H Basophils # (Manual) PT INR APTT POC ABG pH POC ABG pO2 Sodium 133 L Potassium Chloride 94.5 L Carbon Dioxide BUN Creatinine 0.5 L Glucose 107 H Lactic Acid 2.20 H* Calcium 7.4 L AST ALT Alkaline Phosphatase Total Creatine Kinase C-Reactive Protein NT-Pro-B Natriuret Pep Albumin TSH Crossmatch 01/08/19 01/09/19 01/09/19 19:09 06:46 06:46 WBC 14.6 H RBC 3.31 L Hgb 10.5 L Hct 31.9 L MCV 97 H RDW 15.5 H Plt Count 606 H Lymph % (Auto) [place] % (Auto) Lymph # [place] # Seg Neutrophils % Seg Neuts % (Manual) 88.0 H Lymphocytes % (Manual) 3.0 L Monocytes % (Manual) 8.0 H Seg Neutrophils # Seg Neutrophils # Man 12.8 H Lymphocytes # (Manual) 0.4 L Monocytes # (Manual) 1.2 H Basophils # (Manual) PT INR APTT POC ABG pH POC ABG pO2 Sodium 132 L Potassium Chloride 96.3 L Carbon Dioxide BUN 26 H Creatinine 0.6 L Glucose Lactic Acid Calcium 7.2 L AST ALT Alkaline Phosphatase Total Creatine Kinase C-Reactive Protein 7.80 H NT-Pro-B Natriuret Pep Albumin TSH Crossmatch 01/10/19 01/10/19 01/10/19 03:25 03:25 04:53 WBC 21.0 H RBC 2.11 L Hgb 6.8 L D Hct 20.3 L D MCV 97 H RDW 15.5 H Plt Count 583 H Lymph % (Auto) [place] % (Auto) Lymph # [place] # Seg Neutrophils % Seg Neuts % (Manual) Lymphocytes % (Manual) 9.0 L Monocytes % (Manual) Seg Neutrophils # Seg Neutrophils # Man 13.4 H Lymphocytes # (Manual) Monocytes # (Manual) 1.1 H Basophils # (Manual) 0.2 H PT INR APTT POC ABG pH POC ABG pO2 Sodium 132 L Potassium 5.4 H Chloride Carbon Dioxide 20 L D BUN 63 H Creatinine 0.7 L Glucose 119 H Lactic Acid Calcium 7.0 L AST ALT Alkaline Phosphatase Total Creatine Kinase C-Reactive Protein NT-Pro-B Natriuret Pep Albumin TSH Crossmatch See Detail 01/10/19 01/11/19 01/11/19 18:01 06:14 09:22 WBC 22.9 H 24.8 H RBC 2.25 L 1.83 L Hgb 7.2 L 5.7 L* 6.2 L Hct 21.6 L 17.6 L* 17.8 L* MCV 96 H 96 H RDW 15.7 H 15.5 H Plt Count Lymph % (Auto) [place] % (Auto) Lymph # [place] # Seg Neutrophils % Seg Neuts % (Manual) 92.5 H 88.0 H Lymphocytes % (Manual) 5.0 L 6.0 L Monocytes % (Manual) Seg Neutrophils # Seg Neutrophils # Man 21.2 H 21.8 H Lymphocytes # (Manual) 1.1 L Monocytes # (Manual) 1.5 H Basophils # (Manual) PT INR APTT POC ABG pH POC ABG pO2 Sodium Potassium Chloride Carbon Dioxide BUN Creatinine Glucose Lactic Acid Calcium AST ALT Alkaline Phosphatase Total Creatine Kinase C-Reactive Protein NT-Pro-B Natriuret Pep Albumin TSH Crossmatch Allied health notes reviewed: nursing
--- NOTE | 2019-01-11 12:55 | Progress Note ---
Assessment and Plan Acute Hypoxemic Respiratory Failure Bilateral pneumonia Acute COPD exacerbation Bilateral Pleural Effusions Anemia with GI bleed CMOP (HFpEF) Aortic Stenosis SVT Hyponatremia Hypothyroidism Elevated LFTs -Supportive transfusions, -Stop pharmacologic VTE prophylaxis, use SCDs - wean supplemental oxygen to keep sat's > 90% - continue bronchodilators with pulmonary hygiene per RT - add LABA & ICS (Brovana & pulmicort) -continue antibiotics to complete course -discontinue systemic steroid in view of GI bleeding -smoking cessation counseling done - management per cardiology - continue therapeutic PPI Discussed with daughter, and the patient. Updated them re care plan. All their questions were answered. when I asked if he had a pre-existing diagnosis of COPD, they answered yes. On further questions on who his community compliance investigator is ...Dr. Corrigan Plan to transfer care in the morning - continue other care per attending / other consultants Subjective Date of service: 01/11/19 Principal diagnosis: Acute Hypoxemic Resp Failure; Terrell. PNA; AE-COPD; Terrell. Pleural Effusions Interval history: Patient is seen today for: Acute Hypoxemic Respiratory Failure; Bilateral pneumonia; Acute COPD exacerbation; Bilateral Pleural Effusions; CMOP (HFpEF); Aortic Stenosis; Acute GI bleed, anemia requiring supportive transfusions Seen and examined at bedside; 24hour events reviewed; nursing and respiratory care staff consulted; no adverse overnight events reported to me; resting pe acefullly in bed; remains on supplemental oxygen; No N/V/F/C; + right lower ext swelling noted, doppler negative Getting blood transfusion, GI bleed s/p EGD- ulcer noted which was clipped. Was hypotensive this morning, asymptomatic daughter and at the bedside Objective Vital Signs - 12hr 01/11/19 01/11/19 01/11/19 04:18 07:36 07:46 Temperature 97.6 F Pulse Rate 105 H Pulse Rate [ 76 104 H Anterior Bilateral Throughout] Respiratory 20 Rate Respiratory 20 20 Rate [Anterior Bilateral Throughout] Blood Pressure 92/47 O2 Sat by Pulse 96 98 Oximetry 01/11/19 01/11/19 01/11/19 08:43 09:26 10:00 Temperature Pulse Rate 81 77 Pulse Rate [ Anterior Bilateral Throughout] Respiratory 20 Rate Respiratory Rate [Anterior Bilateral Throughout] Blood Pressure 90/41 O2 Sat by Pulse 96 Oximetry 01/11/19 01/11/19 01/11/19 10:54 10:58 11:13 Temperature 98 F 98 F 97.6 F Pulse Rate 87 91 H 74 Pulse Rate [ Anterior Bilateral Throughout] Respiratory 20 20 19 Rate Respiratory Rate [Anterior Bilateral Throughout] Blood Pressure 85/39 83/39 93/40 O2 Sat by Pulse 98 98 98 Oximetry 01/11/19 01/11/19 11:43 12:13 Temperature 97.8 F 97 F L Pulse Rate 80 79 Pulse Rate [ Anterior Bilateral Throughout] Respiratory 18 19 Rate Respiratory Rate [Anterior Bilateral Throughout] Blood Pressure 87/42 92/48 O2 Sat by Pulse 100 97 Oximetry Constitutional: alert, other (elderly looking CM, normocephalic and atraumatic with mildly increased resp effort at rest) Eyes: non-icteric ENT: oropharynx moist, oropharynx pale Neck: supple, no lymphadenopathy Effort: mildly labored Ascultation: Bilateral: diminished breath sounds, rhonchi Percussion: Bilateral: not dull Cardiovascular: regular rate and rhythm, other (S1,S2) Gastrointestinal: normoactive bowel sounds, soft, non-tender, non-distended Integumentary: normal, rash Extremities: no cyanosis, pink and warm, pulses normal, no ischemia or petechiae, edema (Right lower extremity) Neurologic: normal mental status, non-focal exam, pupils equal and round, other (Patient sleeping at this time.) Psychiatric: mood appropriate, affect normal CBC and BMP: 01/12/19 05:39 01/12/19 05:42 ABG, PT/INR, D-dimer: ABG POC ABG pH 7.446 (7.35-7.45) 01/07/19 21:09 POC ABG pCO2 44.1 (35-45) 01/07/19 21:09 POC ABG pO2 55 (80-105) L 01/07/19 21:09 POC ABG HCO3 30.4 (22-26 mml/L) 01/07/19 21:09 POC ABG Total CO2 32 (23-27mmol/L) 01/07/19 21:09 POC ABG O2 Sat 89 01/07/19 21:09 PT/INR, D-dimer PT 15.6 Sec. (12.2-14.9) H 01/05/19 21:47 INR 1.17 (0.87-1.13) H 01/05/19 21:47 Abnormal lab findings: Abnormal Labs 01/05/19 01/05/19 01/05/19 21:47 21:47 21:47 WBC RBC Hgb Hct MCV RDW Plt Count Lymph % (Auto) [place] % (Auto) Lymph # [place] # Seg Neutrophils % Seg Neuts % (Manual) Lymphocytes % (Manual) Monocytes % (Manual) Seg Neutrophils # Seg Neutrophils # Man Lymphocytes # (Manual) Monocytes # (Manual) Basophils # (Manual) PT 15.6 H INR 1.17 H APTT 24.1 L POC ABG pH POC ABG pO2 Sodium 123 L Potassium 7.7 H* Chloride 85.4 L Carbon Dioxide BUN Creatinine 0.6 L Glucose Lactic Acid Calcium 7.8 L AST 115 H ALT 62 H Alkaline Phosphatase 168 H Total Creatine Kinase 45 L C-Reactive Protein NT-Pro-B Natriuret Pep Albumin 1.5 L TSH Crossmatch 01/05/19 01/05/19 01/06/19 22:07 23:16 02:16 WBC 26.5 H RBC Hgb Hct MCV 95 H RDW 15.6 H Plt Count 560 H Lymph % (Auto) [place] % (Auto) Lymph # [place] # Seg Neutrophils % Seg Neuts % (Manual) 91.0 H Lymphocytes % (Manual) 4.0 L Monocytes % (Manual) Seg Neutrophils # Seg Neutrophils # Man 24.1 H Lymphocytes # (Manual) 1.1 L Monocytes # (Manual) 1.3 H Basophils # (Manual) PT INR APTT POC ABG pH 7.494 H POC ABG pO2 Sodium 131 L D Potassium Chloride 94.0 L Carbon Dioxide BUN Creatinine 0.5 L Glucose 122 H Lactic Acid Calcium 7.3 L AST ALT Alkaline Phosphatase Total Creatine Kinase C-Reactive Protein NT-Pro-B Natriuret Pep Albumin TSH Crossmatch 01/06/19 01/06/19 01/06/19 07:24 07:24 07:24 WBC RBC Hgb Hct MCV RDW Plt Count Lymph % (Auto) [place] % (Auto) Lymph # [place] # Seg Neutrophils % Seg Neuts % (Manual) Lymphocytes % (Manual) Monocytes % (Manual) Seg Neutrophils # Seg Neutrophils # Man Lymphocytes # (Manual) Monocytes # (Manual) Basophils # (Manual) PT INR APTT POC ABG pH POC ABG pO2 Sodium 132 L Potassium Chloride 96.3 L Carbon Dioxide BUN Creatinine 0.5 L Glucose Lactic Acid Calcium 7.4 L AST ALT Alkaline Phosphatase Total Creatine Kinase C-Reactive Protein NT-Pro-B Natriuret Pep 8941 H Albumin TSH 9.270 H Crossmatch 01/07/19 01/07/19 01/07/19 03:46 03:46 21:09 WBC 14.9 H RBC Hgb Hct 35.2 L MCV 96 H RDW 15.7 H Plt Count 584 H Lymph % (Auto) 5.5 L [place] % (Auto) 10.0 H Lymph # 0.8 L [place] # 1.5 H Seg Neutrophils % 83.9 H Seg Neuts % (Manual) Lymphocytes % (Manual) Monocytes % (Manual) Seg Neutrophils # 12.5 H Seg Neutrophils # Man Lymphocytes # (Manual) Monocytes # (Manual) Basophils # (Manual) PT INR APTT POC ABG pH POC ABG pO2 55 L Sodium 134 L Potassium Chloride 95.1 L Carbon Dioxide 31 H BUN Creatinine 0.5 L Glucose 106 H Lactic Acid Calcium 7.6 L AST ALT Alkaline Phosphatase Total Creatine Kinase C-Reactive Protein NT-Pro-B Natriuret Pep Albumin TSH Crossmatch 01/08/19 01/08/19 01/08/19 06:14 06:14 19:09 WBC 14.8 H RBC Hgb Hct MCV 97 H RDW 15.9 H Plt Count 621 H Lymph % (Auto) [place] % (Auto) 9.7 H Lymph # [place] # 1.4 H Seg Neutrophils % 84.1 H Seg Neuts % (Manual) 87.0 H Lymphocytes % (Manual) 6.0 L Monocytes % (Manual) Seg Neutrophils # 12.4 H Seg Neutrophils # Man 12.9 H Lymphocytes # (Manual) 0.9 L Monocytes # (Manual) 1.0 H Basophils # (Manual) PT INR APTT POC ABG pH POC ABG pO2 Sodium 133 L Potassium Chloride 94.5 L Carbon Dioxide BUN Creatinine 0.5 L Glucose 107 H Lactic Acid 2.20 H* Calcium 7.4 L AST ALT Alkaline Phosphatase Total Creatine Kinase C-Reactive Protein NT-Pro-B Natriuret Pep Albumin TSH Crossmatch 01/08/19 01/09/19 01/09/19 19:09 06:46 06:46 WBC 14.6 H RBC 3.31 L Hgb 10.5 L Hct 31.9 L MCV 97 H RDW 15.5 H Plt Count 606 H Lymph % (Auto) [place] % (Auto) Lymph # [place] # Seg Neutrophils % Seg Neuts % (Manual) 88.0 H Lymphocytes % (Manual) 3.0 L Monocytes % (Manual) 8.0 H Seg Neutrophils # Seg Neutrophils # Man 12.8 H Lymphocytes # (Manual) 0.4 L Monocytes # (Manual) 1.2 H Basophils # (Manual) PT INR APTT POC ABG pH POC ABG pO2 Sodium 132 L Potassium Chloride 96.3 L Carbon Dioxide BUN 26 H Creatinine 0.6 L Glucose Lactic Acid Calcium 7.2 L AST ALT Alkaline Phosphatase Total Creatine Kinase C-Reactive Protein 7.80 H NT-Pro-B Natriuret Pep Albumin TSH Crossmatch 01/10/19 01/10/19 01/10/19 03:25 03:25 04:53 WBC 21.0 H RBC 2.11 L Hgb 6.8 L D Hct 20.3 L D MCV 97 H RDW 15.5 H Plt Count 583 H Lymph % (Auto) [place] % (Auto) Lymph # [place] # Seg Neutrophils % Seg Neuts % (Manual) Lymphocytes % (Manual) 9.0 L Monocytes % (Manual) Seg Neutrophils # Seg Neutrophils # Man 13.4 H Lymphocytes # (Manual) Monocytes # (Manual) 1.1 H Basophils # (Manual) 0.2 H PT INR APTT POC ABG pH POC ABG pO2 Sodium 132 L Potassium 5.4 H Chloride Carbon Dioxide 20 L D BUN 63 H Creatinine 0.7 L Glucose 119 H Lactic Acid Calcium 7.0 L AST ALT Alkaline Phosphatase Total Creatine Kinase C-Reactive Protein NT-Pro-B Natriuret Pep Albumin TSH Crossmatch See Detail 01/10/19 01/11/19 01/11/19 18:01 06:14 09:22 WBC 22.9 H 24.8 H RBC 2.25 L 1.83 L Hgb 7.2 L 5.7 L* 6.2 L Hct 21.6 L 17.6 L* 17.8 L* MCV 96 H 96 H RDW 15.7 H 15.5 H Plt Count Lymph % (Auto) [place] % (Auto) Lymph # [place] # Seg Neutrophils % Seg Neuts % (Manual) 92.5 H 88.0 H Lymphocytes % (Manual) 5.0 L 6.0 L Monocytes % (Manual) Seg Neutrophils # Seg Neutrophils # Man 21.2 H 21.8 H Lymphocytes # (Manual) 1.1 L Monocytes # (Manual) 1.5 H Basophils # (Manual) PT INR APTT POC ABG pH POC ABG pO2 Sodium Potassium Chloride Carbon Dioxide BUN Creatinine Glucose Lactic Acid Calcium AST ALT Alkaline Phosphatase Total Creatine Kinase C-Reactive Protein NT-Pro-B Natriuret Pep Albumin TSH Crossmatch Prior PFT's, U/S of legs: report reviewed Allied health notes reviewed: nursing
--- NOTE | 2019-01-11 13:04 | Progress Note ---
Assessment and Plan 1. Acute GI bleed with is significant fall in H/H 2. History of PSVT 3. Chronic obstructive pulmonary disease 4. Thoracic aortic aneurysm 5. Hypotension likely secondary to blood loss Plan. Patient has been seen by gastroenterology for possible endoscopy today we will follow. IV diuretics Subjective Date of service: 01/11/19 Principal diagnosis: Acute Hypoxemic Resp Failure; Terrell. PNA; AE-COPD; Terrell. Pleural Effusions Interval history: No cardiacs symptoms. has not had any melanotic stools. has generalized edema Objective Vital Signs Temp Pulse Pulse Pulse Pulse Resp Resp 01/11/19 12:43 98.1 F 78 18 01/11/19 12:13 97 F L 79 19 01/11/19 11:43 97.8 F 80 18 01/11/19 11:13 97.6 F 74 19 01/11/19 10:58 98 F 91 H 20 01/11/19 10:54 98 F 87 20 01/11/19 10:00 77 01/11/19 09:26 81 01/11/19 08:43 20 01/11/19 07:46 104 H 20 01/11/19 07:36 76 20 01/11/19 04:18 97.6 F 105 H 20 01/10/19 23:43 98.6 F 89 22 01/10/19 22:00 95 H 98 H 95 H 18 01/10/19 20:58 01/10/19 20:55 101 H 20 01/10/19 20:42 98.7 F 95 H 22 01/10/19 17:04 98.0 F 89 20 01/10/19 16:45 97 H 26 H 01/10/19 16:35 91 H 26 H 01/10/19 16:30 115 H 26 H 01/10/19 16:25 108 H 26 H 01/10/19 16:20 102 H 26 H 01/10/19 16:15 94 H 26 H 01/10/19 16:12 94 H 26 H 01/10/19 16:07 89 24 01/10/19 16:02 98.5 F 90 18 01/10/19 15:20 98.7 F 95 H 22 01/10/19 14:15 96 H 32 H 01/10/19 14:05 89 32 H 01/10/19 13:45 98.2 F 95 H 20 01/10/19 13:15 98.4 F 88 20 BP Pulse Ox 01/11/19 12:43 90/41 99 01/11/19 12:13 92/48 97 01/11/19 11:43 87/42 100 01/11/19 11:13 93/40 98 01/11/19 10:58 83/39 98 01/11/19 10:54 85/39 98 01/11/19 10:00 01/11/19 09:26 90/41 01/11/19 08:43 96 01/11/19 07:46 01/11/19 07:36 98 01/11/19 04:18 92/47 96 01/10/19 23:43 91/42 92 01/10/19 22:00 01/10/19 20:58 94 01/10/19 20:55 01/10/19 20:42 105/44 90 01/10/19 17:04 97/43 94 01/10/19 16:45 92/41 93 01/10/19 16:35 101/44 91 01/10/19 16:30 100/47 95 01/10/19 16:25 94/50 94 01/10/19 16:20 97/49 94 01/10/19 16:15 94/50 93 01/10/19 16:12 98/41 92 01/10/19 16:07 95/50 98 01/10/19 16:02 101/52 100 01/10/19 15:20 105/44 94 01/10/19 14:15 01/10/19 14:05 01/10/19 13:45 102/47 96 01/10/19 13:15 100/50 97 - Physical Examination General: Appears Well, No Apparent Distress HEENT: Positive: PERRL Neck: Positive: neck supple, trachea midline. Negative: JVD/HJR Cardiac: Positive: Regular Rate, S1/S2, S4, PMI, Dilated, Laterally Displaced. Negative: S3 Lungs: Positive: clear to auscultation, No Wheeze, Rales, Rhonchi Neuro: Positive: Grossly Intact, No Lateralizing Findings Abdomen: Positive: Unremarkable, Active Bowel Sounds Extremities: Present: +2 Edema. Absent: edema - Labs and Meds CBC 01/10/19 01/11/19 01/11/19 Range/Units 18:01 06:14 09:22 WBC 22.9 H 24.8 H (4.5-11.0) K/mm3 RBC 2.25 L 1.83 L (3.65-5.03) M/mm3 Hgb 7.2 L 5.7 L* 6.2 L (11.8-15.2) gm/dl Hct 21.6 L 17.6 L* 17.8 L* (35.5-45.6) % Plt Count 431 358 (140-440) K/mm3 - Telemetry EKG Rhythm: Sinus Rhythm - Allied health notes Allied health notes reviewed: nursing
--- NOTE | 2019-01-11 14:28 | XRay Report ---
PROCEDURE: XR CHEST 1V AP TECHNIQUE: Chest radiograph, portable semierect upright AP view. HISTORY: Pneumonia, leukocytosis COMPARISONS: Chest x-ray January 08, 2019. FINDINGS: Cardiac silhouette is within normal limits. Patchy consolidation in the right upper lobe is slightly decreased compared to the prior. Patchy infi ltrate at the right lower lobe is relatively unchanged. Focal consolidations in the left perihilar re gion and left lower lobe are unchanged. No pneumothorax. No effusion. Mild prominent bilateral pulmon pat markings. COPD. There are no suspicious osseous lesions. IMPRESSION: * COPD. * Suspect bilateral pneumonias. Slightly improved in the right upper lobe otherwise stable. * Prominent bilateral pulmonary markings may represent bronchitis, pulmonary vascular congestion, or interstitial pneumonitis. This document is electronically signed by Del Henson MD., January 11 2019 02:26:30 PM ET
--- NOTE | 2019-01-11 16:26 | Gastroenterology Progress Note ---
Assessment and Plan - Patient Problems (1) Gastric ulcer with hemorrhage Current Visit: Yes Status: Acute Plan to address problem: - EGD 01/10 with endoscopic clipping of with visible vessel. - Still quite anemic, but appears clinically improved; given his severe protein- calorie malnutrition, I suspect some of this is dilutional and some is due to poor nutritional reserve. - Will transfuse today, and continue protonix IV. - Continue to avoid all NSAIDs. - If bleeds further/fails to respond to transfusion, will ask IR for elective embolization. Subjective Date of service: 01/11/19 Principal diagnosis: Gastric Ulcer Interval history: The patient had no melena overnight or today. He feels stronger, and denies abdominal pain, nausea, vomiting, or dyspepsia. He is hungry and wants to advance his diet. Of note, despite his low hct, his affect and strength are markedly improved today, without signs of distress. Objective - Constitutional Vitals: Temp Pulse Resp BP Pulse Ox 98.1 F 78 20 101/47 92 01/11/19 16:05 01/11/19 16:05 01/11/19 16:05 01/11/19 16:05 01/11/19 16:05 General appearance: no acute distress - EENT Eyes: PERRL, EOM intact - Respiratory Respiratory effort: normal Respiratory: bilateral: diminished - Cardiovascular Rhythm: regular Heart Sounds: Present: S1 & S2 - Gastrointestinal General gastrointestinal: Present: soft, non-tender, non-distended - Labs CBC & Chem 7: 01/11/19 09:22 01/10/19 03:25 Labs: Laboratory Results - last 24 hr 01/10/19 01/10/19 01/11/19 04:53 18:01 06:14 WBC 22.9 H 24.8 H RBC 2.25 L 1.83 L Hgb 7.2 L 5.7 L* Hct 21.6 L 17.6 L* MCV 96 H 96 H MCH 32 31 MCHC 33 33 RDW 15.7 H 15.5 H Plt Count 431 358 Add Manual Diff Complete Complete Total Counted 200 100 Seg Neuts % (Manual) 92.5 H 88.0 H Band Neutrophils % 0.5 0 Lymphocytes % (Manual) 5.0 L 6.0 L Reactive Lymphs % (Man) 0 0 Monocytes % (Manual) 2.0 6.0 Eosinophils % (Manual) 0 0 Basophils % (Manual) 0 0 Metamyelocytes % 0 0 Myelocytes % 0 0 Promyelocytes % 0 0 Blast Cells % 0 0 Nucleated RBC % Not Reportable Not Reportable Seg Neutrophils # Man 21.2 H 21.8 H Band Neutrophils # 0.1 0.0 Lymphocytes # (Manual) 1.1 L 1.5 Abs React Lymphs (Man) 0.0 0.0 Monocytes # (Manual) 0.5 1.5 H Eosinophils # (Manual) 0.0 0.0 Basophils # (Manual) 0.0 0.0 Metamyelocytes # 0.0 0.0 Myelocytes # 0.0 0.0 Promyelocytes # 0.0 0.0 Blast Cells # 0.0 0.0 WBC Morphology Not Reportable Not Reportable Hypersegmented Neuts Not Reportable Not Reportable Hyposegmented Neuts Not Reportable Not Reportable Hypogranular Neuts Not Reportable Not Reportable Smudge Cells Not Reportable Not Reportable Toxic Granulation Not Reportable Not Reportable Toxic Vacuolation Not Reportable Not Reportable Dohle Bodies Not Reportable Not Reportable Pelger-Huet Anomaly Not Reportable Not Reportable Eugenio Rods Not Reportable Not Reportable Platelet Estimate Consistent w auto Consistent w auto Clumped Platelets Not Reportable Not Reportable Plt Clumps, EDTA Not Reportable Not Reportable Large Platelets Not Reportable Not Reportable Giant Platelets Not Reportable Few Platelet Satelliting Not Reportable Not Reportable Plt Morphology Comment Not Reportable Not Reportable RBC Morphology Not Reportable Not Reportable Dimorphic RBCs Not Reportable Not Reportable Polychromasia Not Reportable Not Reportable Hypochromasia Not Reportable Few Poikilocytosis Not Reportable Not Reportable Anisocytosis 1+ Not Reportable Microcytosis Not Reportable Not Reportable Macrocytosis Few Not Reportable Spherocytes Not Reportable Not Reportable Pappenheimer Bodies Not Reportable Not Reportable Sickle Cells Not Reportable Not Reportable Target Cells Few Not Reportable Tear Drop Cells Not Reportable Not Reportable Ovalocytes Not Reportable Not Reportable Helmet Cells Not Reportable Not Reportable [place] Bodies Not Reportable Not Reportable [place] Rings Not Reportable Not Reportable Jame Cells Not Reportable Not Reportable Bite Cells Not Reportable Not Reportable Crenated Cell Not Reportable Not Reportable Elliptocytes Not Reportable Few Acanthocytes (Spur) Not Reportable Not Reportable Rouleaux Not Reportable Not Reportable Hemoglobin C Crystals Not Reportable Not Reportable Schistocytes Not Reportable Not Reportable Malaria parasites Not Reportable Not Reportable Derick Bodies Not Reportable Not Reportable Hem Pathologist Commnt No No Blood Type A POSITIVE Antibody Screen Negative Crossmatch See Detail 01/11/19 09:22 WBC RBC Hgb 6.2 L Hct 17.8 L* MCV MCH MCHC RDW Plt Count Add Manual Diff Total Counted Seg Neuts % (Manual) Band Neutrophils % Lymphocytes % (Manual) Reactive Lymphs % (Man) Monocytes % (Manual) Eosinophils % (Manual) Basophils % (Manual) Metamyelocytes % Myelocytes % Promyelocytes % Blast Cells % Nucleated RBC % Seg Neutrophils # Man Band Neutrophils # Lymphocytes # (Manual) Abs React Lymphs (Man) Monocytes # (Manual) Eosinophils # (Manual) Basophils # (Manual) Metamyelocytes # Myelocytes # Promyelocytes # Blast Cells # WBC Morphology Hypersegmented Neuts Hyposegmented Neuts Hypogranular Neuts Smudge Cells Toxic Granulation Toxic Vacuolation Dohle Bodies Pelger-Huet Anomaly Eugenio Rods Platelet Estimate Clumped Platelets Plt Clumps, EDTA Large Platelets Giant Platelets Platelet Satelliting Plt Morphology Comment RBC Morphology Dimorphic RBCs Polychromasia Hypochromasia Poikilocytosis Anisocytosis Microcytosis Macrocytosis Spherocytes Pappenheimer Bodies Sickle Cells Target Cells Tear Drop Cells Ovalocytes Helmet Cells [place] Bodies [place] Rings Ajme Cells Bite Cells Crenated Cell Elliptocytes Acanthocytes (Spur) Rouleaux Hemoglobin C Crystals Schistocytes Malaria parasites Derick Bodies Hem Pathologist Commnt Blood Type Antibody Screen Crossmatch
[2019-01-11 18:20] LABS: Hematocrit 22.8 % (35.5-45.6); Hemoglobin 7.6 gm/dl (11.8-15.2)
[2019-01-11] MEDS: NACL 0.9% 1000 ML 1,000 ML IV SCH ×2 (19:35→19:51)
[2019-01-11] MEDS ORDERED: NACL 0.9% 500 ML 500 ML ONE (21:55)
[2019-01-11] MEDS: AMBIEN PO PRN (22:49)
[2019-01-12] MEDS: DUONEB *Not for PRN Use IH SCH ×4 (02:00→22:59)
[2019-01-12] MEDS: SYNTHROID PO SCH (05:31)
[2019-01-12 06:02] LABS: Hematocrit 23.5 % (35.5-45.6); Hemoglobin 7.9 gm/dl (11.8-15.2); Mean Corpuscular HGB Conc 34 % (32-34); Mean Corpuscular Volume 95 fl (84-94); Platelet Count 314 K/mm3 (140-440); Red Blood Count 2.48 M/mm3 (3.65-5.03); Red Cell Distribution Width 16.3 % (13.2-15.2)
[2019-01-12] MEDS: MORPHINE IV PRN ×2 (06:05→16:55)
[2019-01-12 06:20] LABS: BUN/Creatinine Ratio 32; Blood Urea Nitrogen 19 mg/dL (9-20); Calcium 7.3 mg/dL (8.4-10.2); Hemolysis Index 4
[2019-01-12] MEDS: PULMICORT IH SCH ×2 (07:58→23:00)
[2019-01-12] MEDS: BROVANA NEBU IH SCH ×2 (07:58→22:59)
[2019-01-12 08:09] LABS: Total Cells Counted 100
[2019-01-12 08:10] LABS: Anisocytosis 1+; Basophils % (Manual) 0 % (0.0-1.8); Macrocytosis Few; Poikilocytosis 1+
[2019-01-12 08:11] LABS: Giant Platelets Rare; Hypochromasia Few; Platelet Estimate Consistent w Auto
--- NOTE | 2019-01-12 08:43 | Event Note ---
Date: 01/12/19 Contacted about GI bleeding. Discussed with Dr. Banks yesterday. Kept NPO after MN except meds for today. No bleeding overnight. No bleeding this morning. H&H did not completely respond to transfusion, but given lack of bleeding this is likely due to re- equilibration. BP improved. Will restore diet. Cancel embolization for now.
[2019-01-12] MEDS: CARDIZEM CD PO SCH (11:08)
[2019-01-12] MEDS: LEVAQUIN PO SCH (11:09)
[2019-01-12] MEDS: PROTONIX IV SCH ×2 (11:09→22:22)
[2019-01-12] MEDS: CORDARONE PO SCH (11:09)
[2019-01-12] MEDS: FEOSOL PO SCH (11:09)
[2019-01-12] MEDS: THERAGRAN-M Tab PO SCH (11:09)
[2019-01-12] MEDS: NACL 0.9% 1000 ML 1,000 ML IV SCH (12:08)
--- NOTE | 2019-01-12 12:26 | Progress Note ---
Assessment and Plan Generalized pain -chief complaint AVNRT s/p adenosine Acute GI bleed s/p blood transfusion EGD revealed gastric ulcer Hypothyroidism Pneumonia Severe hyponatremia Elevated liver transaminase Chronic lung disease Tobacco abuse Chest CTA documents an ectatic ascending thoracic aorta measuring 5cm. There are chronic emphysematous changes. There are diffuse bilateral pulmonary infiltrates. No evidence of pulmonary embolism. An echocardiogram this admission reveals moderate aortic valve calcification with moderate to severe aortic stenosis. Left ventricular systolic function is normal, EF 60%. Small fixed apical wall defect, no reversible ischemia on MPI done 01/2018. 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 Outpatient management of his aortic stenosis and ascending aortic aneurysm, to be followed up next week by his outpatient drum sander. Stable, cardiac ross. Subjective Date of service: 01/12/19 Principal diagnosis: Acute Hypoxemic Resp Failure; Terrell. PNA; AE-COPD; Terrell. Pleural Effusions Interval history: Patient is resting in bed comfortably. He has no complaints. Stable sinus rhythm on telemetry. Objective Vital Signs Temp Pulse Pulse Pulse Resp Resp Resp 01/12/19 08:36 97.9 F 73 20 01/12/19 08:08 76 20 01/12/19 07:58 78 20 01/12/19 06:35 20 01/12/19 06:09 72 20 01/12/19 06:05 20 01/12/19 02:56 73 20 01/12/19 01:29 75 20 01/12/19 01:01 97.7 F 73 20 01/12/19 00:31 97.9 F 74 20 01/12/19 00:01 97.7 F 74 20 01/11/19 23:49 20 01/11/19 23:31 98.4 F 79 20 01/11/19 23:01 98.4 F 72 20 01/11/19 22:49 20 01/11/19 22:45 20 01/11/19 22:43 76 01/11/19 22:31 98.5 F 73 18 01/11/19 22:28 73 01/11/19 22:16 97.9 F 75 20 01/11/19 22:00 01/11/19 20:46 98.3 F 20 01/11/19 20:00 98.3 F 61 20 01/11/19 19:34 82 01/11/19 17:41 19 01/11/19 17:34 97 F L 82 19 01/11/19 17:05 98 F 78 20 01/11/19 16:35 97.5 F L 80 20 01/11/19 16:05 98.1 F 78 20 01/11/19 15:35 97 F L 72 19 01/11/19 15:34 97.8 F 77 18 01/11/19 15:20 97 F L 72 19 01/11/19 13:59 97 F L 83 19 01/11/19 13:51 82 22 01/11/19 13:43 97.3 F L 83 20 01/11/19 13:41 80 22 01/11/19 13:13 97.7 F 78 19 01/11/19 12:43 98.1 F 78 18 Resp BP BP Pulse Ox 01/12/19 08:36 109/42 94 01/12/19 08:08 01/12/19 07:58 96 01/12/19 06:35 01/12/19 06:09 101/40 92 01/12/19 06:05 01/12/19 02:56 101/47 97 01/12/19 01:29 101/50 96 01/12/19 01:01 93/47 94 01/12/19 00:31 90/46 97 01/12/19 00:01 96/43 97 01/11/19 23:49 01/11/19 23:31 100/45 95 01/11/19 23:01 100/50 97 01/11/19 22:49 01/11/19 22:45 01/11/19 22:43 18 01/11/19 22:31 97/49 94 01/11/19 22:28 18 01/11/19 22:16 99/42 97 01/11/19 22:00 94 01/11/19 20:46 103/44 01/11/19 20:00 103/44 90 01/11/19 19:34 01/11/19 17:41 01/11/19 17:34 113/47 96 01/11/19 17:05 100/49 97 01/11/19 16:35 103/49 99 01/11/19 16:05 101/47 92 01/11/19 15:35 101/46 92 01/11/19 15:34 98/49 94 01/11/19 15:20 101/46 97 01/11/19 13:59 90/41 99 01/11/19 13:51 01/11/19 13:43 90/38 96 01/11/19 13:41 01/11/19 13:13 93/41 99 01/11/19 12:43 90/41 99 - Physical Examination General: No Apparent Distress HEENT: Positive: PERRL Neck: Positive: trachea midline Cardiac: Positive: Reg Rate and Rhythm Lungs: Positive: Decreased Breath Sounds Neuro: Positive: Grossly Intact Extremities: Absent: edema - Labs and Meds CBC 01/11/19 01/12/19 Range/Units 18:00 05:39 WBC 16.8 H (4.5-11.0) K/mm3 RBC 2.48 L (3.65-5.03) M/mm3 Hgb 7.6 L 7.9 L (11.8-15.2) gm/dl Hct 22.8 L 23.5 L (35.5-45.6) % Plt Count 314 (140-440) K/mm3 Comprehensive Metabolic Panel 01/12/19 Range/Units 05:42 Sodium 137 (137-145) mmol/L Potassium 4.7 (3.6-5.0) mmol/L Chloride 105.0 (98-107) mmol/L Carbon Dioxide 25 (22-30) mmol/L BUN 19 (9-20) mg/dL Creatinine 0.6 L (0.8-1.5) mg/dL Glucose 88 (75-100) mg/dL Calcium 7.3 L (8.4-10.2) mg/dL - Allied health notes Allied health notes reviewed: nursing
--- NOTE | 2019-01-12 13:33 | Progress Note ---
Assessment and Plan Assessment and plan: GI bleed/Melena. EGD revealed 1cm flat ulcer on greater curve/body, with a moderate visible vessel present. Endo Clip 1 with cold biopsy of antrum to rule out H. pylori. No esophageal varices. Follow-up H&H this morning revealed hemoglobin 5.7. PRBCs transfused. Vascular surgery consult yesterday for possible embolization. However, no bleeding overnight or this morning. Follow- up H&H is more stable. Vascular surgery opts to monitor for now. GI following as well. Sepsis. Resolved. Patient needs criteria given the tachycardia, leukocytosis and diagnosis of pneumonia. Follow-up blood and urine cultures. Thus far negative. Leukocytosis improving. Bilateral pneumonia. Continue IV antibiotics. Follow serial chest x-ray. Right lower extremity pain. Doppler reveals questionable right abscess versus hematoma. Patient denies any trauma. Surgery evaluated patient. Chronic lung disease/COPD. Compensated. Acute hypoxemic respiratory failure. Etiology secondary to above. Chest CTA documents an ectatic ascending thoracic aorta measuring 5cm. There are chronic emphysematous changes. There are diffuse bilateral pulmonary infiltrates. No evidence of pulmonary embolism. SVT/atrial tachycardia. Resolved. Patient previously S/p adenosine Continue amiodarone by mouth per cardiology recommendations. No evidence of PE on Chest CTA. Well preserved LVEF on echo 01/2018. Small fixed apical wall defect, no reversible ischemia on MPI 01/2018. Cardiology following. Repeat echocardiogram revealed moderate to severe aortic stenosis. EF 55-60%. Hyponatremia. Improved. 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 Hypothyroidism. TSH is 9.25. Continue Synthroid. Elevated LFTs. Etiology likely secondary to sepsis/hypotension. History Interval history: Patient is a 78 year old male who was brought to the emergency department with complaints of generalized pain. A cardiac consultation was requested for atrial fibrillation. On review, his EKG is wide complex tachycardia consistent with SVT. There is no evidence of atrial fibrillation. The patient was initially started on Cardizem drip but developed hypotension. Amiodarone drip was then initiated. On admission, Initial labs revealed leukocytosis, WBC of 26.5 and severe hyponatremia with a sodium of 123. TSH is 9.25. A chest CTA scan documents an ectatic ascending thoracic aorta measuring 5cm. There are chronic emphysematous changes. There are diffuse bilateral pulmonary infiltrates. No evidence of pulmonary embolism. Patient has a history of hypothyroidism. Patient also smokes cigarettes. He is known to [facility] and was recently seen by Dr Walker for anticipated carpal tunnel surgery. His latest cardiac workup was done January 2018. He had a stress thallium stress test that reports a small fixed mid apical wall defect with no reversible ischemia and a well preserved left ventricular ejection fraction 55% on an echocardiogram. Cardiology to transitioned the patient to oral amiodarone for suppression of atrial tachycardia. Repeat echocardiogram revealed moderate to severe aortic stenosis with EF of 55-60%. 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 Patient stabilizing from cardiac standpoint and was cleared by cardiology to DC home but over the last 36 hours has had a significant drop in H/H. He started having dark stools that were loose. He has had no N/V/hematemesis. A colonoscopy 3 years ago (jared ACOSTA per patient) showed 2 polyps, but he has not had an upper endoscopy, nor does he have a hx of PUD. The patient was seen by GI in consultation for melena. Hospitalist Physical - Constitutional Vitals: Temp Pulse Resp BP Pulse Ox 98.0 F 81 18 109/50 91 01/12/19 12:38 01/12/19 12:38 01/12/19 12:38 01/12/19 12:38 01/12/19 12:38 General appearance: Present: no acute distress - EENT Eyes: Present: PERRL, EOM intact ENT: hearing intact, clear oral mucosa, dentition normal - Neck Neck: Present: supple, normal ROM - Respiratory Respiratory effort: normal Respiratory: bilateral: CTA - Cardiovascular Rhythm: regular Heart Sounds: Present: S1 & S2. Absent: gallop, rub - Extremities Extremities: no ischemia, No edema, Full ROM - Abdominal General gastrointestinal: soft, non-tender, non-distended, normal bowel sounds - Integumentary Integumentary: Present: clear, warm, dry - Neurologic Neurologic: CNII-XII intact, moves all extremities Results - Labs CBC & Chem 7: 01/12/19 05:39 01/12/19 05:42 Labs: Laboratory Last Values WBC 16.8 K/mm3 (4.5-11.0) H 01/12/19 05:39 RBC 2.48 M/mm3 (3.65-5.03) L 01/12/19 05:39 Hgb 7.9 gm/dl (11.8-15.2) L 01/12/19 05:39 Hct 23.5 % (35.5-45.6) L 01/12/19 05:39 MCV 95 fl (84-94) H 01/12/19 05:39 MCH 32 pg (28-32) 01/12/19 05:39 MCHC 34 % (32-34) 01/12/19 05:39 RDW 16.3 % (13.2-15.2) H 01/12/19 05:39 Plt Count 314 K/mm3 (140-440) 01/12/19 05:39 Lymph % (Auto) 5.5 % (13.4-35.0) L 01/07/19 03:46 [place] % (Auto) Addressograph Operator 01/10/19 03:25 Eos % (Auto) Addressograph Operator 01/10/19 03:25 Baso % (Auto) 0.3 % (0.0-1.8) 01/07/19 03:46 Lymph # 0.8 K/mm3 (1.2-5.4) L 01/07/19 03:46 Harper # 1.4 K/mm3 (0.0-0.8) H 01/08/19 06:14 Eos # Addressograph Operator 01/10/19 03:25 Baso # Addressograph Operator 01/10/19 03:25 Add Manual Diff Complete 01/12/19 05:39 Total Counted 100 01/12/19 05:39 Seg Neutrophils % Addressograph Operator 01/10/19 03:25 Seg Neuts % (Manual) 90.0 % (40.0-70.0) H 01/12/19 05:39 Band Neutrophils % 0 % 01/12/19 05:39 Lymphocytes % (Manual) 3.0 % (13.4-35.0) L 01/12/19 05:39 Reactive Lymphs % (Man) 0 % 01/12/19 05:39 Monocytes % (Manual) 3.0 % (0.0-7.3) 01/12/19 05:39 Eosinophils % (Manual) 1.0 % (0.0-4.3) 01/12/19 05:39 Basophils % (Manual) 0 % (0.0-1.8) 01/12/19 05:39 Metamyelocytes % 3.0 % 01/12/19 05:39 Myelocytes % 0 % 01/12/19 05:39 Promyelocytes % 0 % 01/12/19 05:39 Blast Cells % 0 % 01/12/19 05:39 Nucleated RBC % Not Reportable 01/12/19 05:39 Seg Neutrophils # Addressograph Operator 01/10/19 03:25 Seg Neutrophils # Man 15.1 K/mm3 (1.8-7.7) H 01/12/19 05:39 Band Neutrophils # 0.0 K/mm3 01/12/19 05:39 Lymphocytes # (Manual) 0.5 K/mm3 (1.2-5.4) L 01/12/19 05:39 Abs React Lymphs (Man) 0.0 K/mm3 01/12/19 05:39 Monocytes # (Manual) 0.5 K/mm3 (0.0-0.8) 01/12/19 05:39 Eosinophils # (Manual) 0.2 K/mm3 (0.0-0.4) 01/12/19 05:39 Basophils # (Manual) 0.0 K/mm3 (0.0-0.1) 01/12/19 05:39 Metamyelocytes # 0.5 K/mm3 01/12/19 05:39 Myelocytes # 0.0 K/mm3 01/12/19 05:39 Promyelocytes # 0.0 K/mm3 01/12/19 05:39 Blast Cells # 0.0 K/mm3 01/12/19 05:39 WBC Morphology Not Reportable 01/12/19 05:39 Hypersegmented Neuts Not Reportable 01/12/19 05:39 Hyposegmented Neuts Not Reportable 01/12/19 05:39 Hypogranular Neuts Not Reportable 01/12/19 05:39 Smudge Cells Not Reportable 01/12/19 05:39 Toxic Granulation Not Reportable 01/12/19 05:39 Toxic Vacuolation Not Reportable 01/12/19 05:39 Dohle Bodies Not Reportable 01/12/19 05:39 Pelger-Huet Anomaly Not Reportable 01/12/19 05:39 Eugenio Rods Not Reportable 01/12/19 05:39 Platelet Estimate Consistent w auto 01/12/19 05:39 Clumped Platelets Not Reportable 01/12/19 05:39 Plt Clumps, EDTA Not Reportable 01/12/19 05:39 Large Platelets Not Reportable 01/12/19 05:39 Giant Platelets Rare 01/12/19 05:39 Platelet Satelliting Not Reportable 01/12/19 05:39 Plt Morphology Comment Not Reportable 01/12/19 05:39 RBC Morphology Not Reportable 01/12/19 05:39 Dimorphic RBCs Not Reportable 01/12/19 05:39 Polychromasia Not Reportable 01/12/19 05:39 Hypochromasia Few 01/12/19 05:39 Poikilocytosis 1+ 01/12/19 05:39 Anisocytosis 1+ 01/12/19 05:39 Microcytosis Not Reportable 01/12/19 05:39 Macrocytosis Few 01/12/19 05:39 Spherocytes Not Reportable 01/12/19 05:39 Pappenheimer Bodies Not Reportable 01/12/19 05:39 Sickle Cells Not Reportable 01/12/19 05:39 Target Cells Not Reportable 01/12/19 05:39 Tear Drop Cells Not Reportable 01/12/19 05:39 Ovalocytes Not Reportable 01/12/19 05:39 Helmet Cells Not Reportable 01/12/19 05:39 [place] Bodies Not Reportable 01/12/19 05:39 [place] Rings Not Reportable 01/12/19 05:39 Jame Cells Not Reportable 01/12/19 05:39 Bite Cells Not Reportable 01/12/19 05:39 Crenated Cell Not Reportable 01/12/19 05:39 Elliptocytes Few 01/12/19 05:39 Acanthocytes (Spur) Not Reportable 01/12/19 05:39 Rouleaux Not Reportable 01/12/19 05:39 Hemoglobin C Crystals Not Reportable 01/12/19 05:39 Schistocytes Not Reportable 01/12/19 05:39 Malaria parasites Not Reportable 01/12/19 05:39 Derick Bodies Not Reportable 01/12/19 05:39 Hem Pathologist Commnt No 01/12/19 05:39 PT 15.6 Sec. (12.2-14.9) H 01/05/19 21:47 INR 1.17 (0.87-1.13) H 01/05/19 21:47 APTT 24.1 Sec. (24.2-36.6) L 01/05/19 21:47 POC ABG pH 7.446 (7.35-7.45) 01/07/19 21:09 POC ABG pCO2 44.1 (35-45) 01/07/19 21:09 POC ABG pO2 55 (80-105) L 01/07/19 21:09 POC ABG HCO3 30.4 (22-26 mml/L) 01/07/19 21:09 POC ABG Total CO2 32 (23-27mmol/L) 01/07/19 21:09 POC ABG O2 Sat 89 01/07/19 21:09 POC ABG Base Excess 6 ((-2) - (+3)mmol/L) 01/07/19 21:09 FiO2 32 % 01/07/19 21:09 Sodium 137 mmol/L (137-145) 01/12/19 05:42 Potassium 4.7 mmol/L (3.6-5.0) 01/12/19 05:42 Chloride 105.0 mmol/L (98-107) 01/12/19 05:42 Carbon Dioxide 25 mmol/L (22-30) 01/12/19 05:42 Anion Gap 12 mmol/L 01/12/19 05:42 BUN 19 mg/dL (9-20) 01/12/19 05:42 Creatinine 0.6 mg/dL (0.8-1.5) L 01/12/19 05:42 Estimated GFR > 60 ml/min 01/12/19 05:42 BUN/Creatinine Ratio 32 % 01/12/19 05:42 Glucose 88 mg/dL (75-100) 01/12/19 05:42 POC Glucose 100 (70-105) 01/09/19 23:54 Lactic Acid 1.60 mmol/L (0.7-2.0) 01/08/19 20:57 Calcium 7.3 mg/dL (8.4-10.2) L 01/12/19 05:42 Total Bilirubin 0.80 mg/dL (0.1-1.2) 01/05/19 21:47 AST 115 units/L (5-40) H 01/05/19 21:47 ALT 62 units/L (7-56) H 01/05/19 21:47 Alkaline Phosphatase 168 units/L (35-129) H 01/05/19 21:47 Total Creatine Kinase 45 units/L (55-170) L 01/05/19 21:47 CK-MB (CK-2) 1.3 ng/mL (0.0-4.0) 01/05/19 21:47 CK-MB (CK-2) Rel Index 2.8 (0-4) 01/05/19 21:47 Troponin T < 0.010 ng/mL (0.00-0.029) 01/06/19 18:58 C-Reactive Protein 7.80 mg/dL (0.00-1.30) H 01/08/19 19:09 NT-Pro-B Natriuret Pep 8941 pg/mL (0-900) H 01/06/19 07:24 Total Protein 6.6 g/dL (6.3-8.2) 01/05/19 21:47 Albumin 1.5 g/dL (3.9-5) L 01/05/19 21:47 Albumin/Globulin Ratio 0.3 % 01/05/19 21:47 Lipase 32 units/L (13-60) 01/05/19 21:47 TSH 9.270 mlU/mL (0.270-4.200) H 01/06/19 07:24 Free T4 0.76 ng/dL (0.76-1.46) 01/06/19 07:24 Urine Color Yellow (Yellow) 01/05/19 21:39 Urine Turbidity Clear (Clear) 01/05/19 21:39 Urine pH 6.0 (5.0-7.0) 01/05/19 21:39 Ur Specific [place] 1.005 (1.003-1.030) 01/05/19 21:39 Urine Protein <15 mg/dl mg/dL (Negative) 01/05/19 21:39 Urine Glucose (UA) Neg mg/dL (Negative) 01/05/19 21:39 Urine Ketones Neg mg/dL (Negative) 01/05/19 21:39 Urine Blood Neg (Negative) 01/05/19 21:39 Urine Nitrite Neg (Negative) 01/05/19 21:39 Urine Bilirubin Neg (Negative) 01/05/19 21:39 Urine Urobilinogen < 2.0 mg/dL (<2.0) 01/05/19 21:39 Ur Leukocyte Esterase Neg (Negative) 01/05/19 21:39 Urine WBC (Auto) 1.0 /HPF (0.0-6.0) 01/05/19 21:39 Urine RBC (Auto) 1.0 /HPF (0.0-6.0) 01/05/19 21:39 Urine Mucus Few /HPF 01/05/19 21:39 Blood Type A POSITIVE 01/10/19 04:53 Antibody Screen Negative 01/10/19 04:53 Crossmatch See Detail 01/10/19 04:53 Active Medications - Current Medications Current Medications: Generic Name Dose Route Start Last Admin Trade Name Freq PRN Reason Stop Dose Admin Acetaminophen 650 mg 01/06/19 01:50 01/08/19 01:54 Tylenol PO 650 mg Q4H PRN Administration Pain, Mild (1-3) Acetaminophen/Hydrocodone Bitart 1 each 01/07/19 21:36 01/10/19 22:15 [place] 5/325 PO 1 each Q6H PRN Administration Pain, Moderate (4-6) Albuterol/Ipratropium 1 ampul 01/06/19 03:45 01/12/19 07:58 Duoneb *Not For Prn Use* IH Not Given Q6HRT [facility] Amiodarone HCl 200 mg 01/09/19 10:00 01/12/19 11:09 Cordarone PO 200 mg QDAY JONI Administration Arformoterol Tartrate 15 mcg 01/08/19 20:00 01/12/19 07:58 Brovana Nebu IH 15 mcg Q12HRT JONI Administration Budesonide 0.5 mg 01/08/19 20:00 01/12/19 07:58 Pulmicort IH 0.5 mg Q12HRT JONI Administration Diltiazem HCl 180 mg 01/09/19 10:00 01/12/19 11:08 Cardizem Cd PO 180 mg QDAY JONI Administration Ferrous Sulfate 325 mg 01/06/19 10:00 01/12/19 11:09 Feosol PO 325 mg DAILY JONI Administration Sodium Chloride 1,000 mls @ 100 mls/hr 01/10/19 03:00 01/12/19 12:08 Nacl 0.9% 1000 Ml IV 100 mls/hr DIRECT JONI Administration Levothyroxine Sodium 112 mcg 01/06/19 06:00 01/12/19 05:31 Synthroid PO Not Given DAILY@0600 JONI Lorazepam 1 mg 01/06/19 01:57 01/10/19 10:54 Ativan IV 1 mg Q4H PRN Administration Anxiety Morphine Sulfate 1 mg 01/10/19 16:12 01/12/19 06:05 Morphine IV 1 mg Q4H PRN Administration Pain, Moderate (4-6) Multivitamins/Minerals 1 each 01/11/19 10:00 01/12/19 11:09 Theragran-M Tab PO 1 each QDAY JONI Administration Ondansetron HCl 4 mg 01/06/19 01:52 Zofran IV Q8H PRN Nausea And Vomiting Oxycodone/Acetaminophen 1 tab 01/09/19 12:45 01/11/19 22:49 Percocet 5/325 PO 1 tab Q4H PRN Administration Pain, Moderate (4-6) Pantoprazole Sodium 40 mg 01/10/19 22:00 01/12/19 11:09 Protonix IV 40 mg BID JONI Administration Zolpidem Tartrate 5 mg 01/06/19 23:57 01/11/19 22:49 Ambien PO 5 mg QHS PRN Administration Sleep
--- NOTE | 2019-01-12 13:48 | Progress Note ---
Assessment and Plan Acute Hypoxemic Respiratory Failure Bilateral pneumonia Acute COPD exacerbation Bilateral Pleural Effusions CMOP (HFpEF) Aortic Stenosis SVT Hyponatremia Hypothyroidism Elevated LFTs - lower extremity doppler -ve for DVT but complex fluid collection to right thigh - continue to wean supplemental oxygen to keep sat's > 90% - continue bronchodilators with pulmonary hygiene per RT - continue LABA & ICS (Brovana & pulmicort) - follow sputum for gm stain C&S - tobacco Abstinence strongly counseled - continue empiric Zosyn - get CRP level and if unremarkable will de-escalate AB's - add Levaquin for atypical coverage & double GNC in light of structural lung diseas - discussed care plan with attending and patients wishes but adviced he remain till discharged - management per cardiology - add GI prophylaxis and continue VTE prophylaxis with heparin - gentle diuresis for pulmonary edema componentt re: GGO's on CTA (will give 2 doses of lasix 20mg IV and reassess) - continue other care per attending / other consultants ... re-evaluate in am & prn Subjective Date of service: 01/12/19 Principal diagnosis: Acute Hypoxemic Resp Failure; Terrell. PNA; AE-COPD; Terrell. Pleural Effusions Interval history: Patient is seen today for: Acute Hypoxemic Respiratory Failure; Bilateral pn eumonia; Acute COPD exacerbation; Bilateral Pleural Effusions; CMOP (HFpEF); Aortic Stenosis; SVT Seen and examined at bedside; 24hour events reviewed; nursing and respiratory care staff consulted; no adverse overnight events reported to me; resting peacefullly in bed; Objective Vital Signs - 12hr 01/12/19 01/12/19 01/12/19 02:56 06:05 06:09 Temperature Pulse Rate 73 72 Pulse Rate [ Anterior Bilateral Throughout] Respiratory 20 20 20 Rate Respiratory Rate [Anterior Bilateral Throughout] Blood Pressure Blood Pressure 101/47 101/40 [Right] O2 Sat by Pulse 97 92 Oximetry 01/12/19 01/12/19 01/12/19 06:35 07:58 08:08 Temperature Pulse Rate Pulse Rate [ 78 76 Anterior Bilateral Throughout] Respiratory 20 Rate Respiratory 20 20 Rate [Anterior Bilateral Throughout] Blood Pressure Blood Pressure [Right] O2 Sat by Pulse 96 Oximetry 01/12/19 01/12/19 08:36 12:38 Temperature 97.9 F 98.0 F Pulse Rate 73 81 Pulse Rate [ Anterior Bilateral Throughout] Respiratory 20 18 Rate Respiratory Rate [Anterior Bilateral Throughout] Blood Pressure 109/42 109/50 Blood Pressure [Right] O2 Sat by Pulse 94 91 Oximetry Constitutional: no acute distress, alert, other (elderly looking CM, normo cephalic and atraumatic with mildly increased resp effort at rest) Eyes: non-icteric ENT: oropharynx moist Neck: supple, no lymphadenopathy Effort: mildly labored Ascultation: Bilateral: diminished breath sounds, rhonchi Percussion: Bilateral: not dull Cardiovascular: regular rate and rhythm Gastrointestinal: normoactive bowel sounds, soft, non-tender, non-distended Integumentary: normal, rash Extremities: no cyanosis, pink and warm, pulses normal, no ischemia or petechiae, edema (Right lower extremity) Neurologic: other (Patient sleeping at this time.) Psychiatric: mood appropriate, affect normal CBC and BMP: 01/12/19 05:39 01/12/19 05:42 ABG, PT/INR, D-dimer: ABG POC ABG pH 7.446 (7.35-7.45) 01/07/19 21:09 POC ABG pCO2 44.1 (35-45) 01/07/19 21:09 POC ABG pO2 55 (80-105) L 01/07/19 21:09 POC ABG HCO3 30.4 (22-26 mml/L) 01/07/19 21:09 POC ABG Total CO2 32 (23-27mmol/L) 01/07/19 21:09 POC ABG O2 Sat 89 01/07/19 21:09 PT/INR, D-dimer PT 15.6 Sec. (12.2-14.9) H 01/05/19 21:47 INR 1.17 (0.87-1.13) H 01/05/19 21:47 Abnormal lab findings: Abnormal Labs 01/05/19 01/05/19 01/05/19 21:47 21:47 21:47 WBC RBC Hgb Hct MCV RDW Plt Count Lymph % (Auto) [place] % (Auto) Lymph # [place] # Seg Neutrophils % Seg Neuts % (Manual) Lymphocytes % (Manual) Monocytes % (Manual) Seg Neutrophils # Seg Neutrophils # Man Lymphocytes # (Manual) Monocytes # (Manual) Basophils # (Manual) PT 15.6 H INR 1.17 H APTT 24.1 L POC ABG pH POC ABG pO2 Sodium 123 L Potassium 7.7 H* Chloride 85.4 L Carbon Dioxide BUN Creatinine 0.6 L Glucose Lactic Acid Calcium 7.8 L AST 115 H ALT 62 H Alkaline Phosphatase 168 H Total Creatine Kinase 45 L C-Reactive Protein NT-Pro-B Natriuret Pep Albumin 1.5 L TSH Crossmatch 01/05/19 01/05/19 01/06/19 22:07 23:16 02:16 WBC 26.5 H RBC Hgb Hct MCV 95 H RDW 15.6 H Plt Count 560 H Lymph % (Auto) [place] % (Auto) Lymph # [place] # Seg Neutrophils % Seg Neuts % (Manual) 91.0 H Lymphocytes % (Manual) 4.0 L Monocytes % (Manual) Seg Neutrophils # Seg Neutrophils # Man 24.1 H Lymphocytes # (Manual) 1.1 L Monocytes # (Manual) 1.3 H Basophils # (Manual) PT INR APTT POC ABG pH 7.494 H POC ABG pO2 Sodium 131 L D Potassium Chloride 94.0 L Carbon Dioxide BUN Creatinine 0.5 L Glucose 122 H Lactic Acid Calcium 7.3 L AST ALT Alkaline Phosphatase Total Creatine Kinase C-Reactive Protein NT-Pro-B Natriuret Pep Albumin TSH Crossmatch 01/06/19 01/06/19 01/06/19 07:24 07:24 07:24 WBC RBC Hgb Hct MCV RDW Plt Count Lymph % (Auto) [place] % (Auto) Lymph # [place] # Seg Neutrophils % Seg Neuts % (Manual) Lymphocytes % (Manual) Monocytes % (Manual) Seg Neutrophils # Seg Neutrophils # Man Lymphocytes # (Manual) Monocytes # (Manual) Basophils # (Manual) PT INR APTT POC ABG pH POC ABG pO2 Sodium 132 L Potassium Chloride 96.3 L Carbon Dioxide BUN Creatinine 0.5 L Glucose Lactic Acid Calcium 7.4 L AST ALT Alkaline Phosphatase Total Creatine Kinase C-Reactive Protein NT-Pro-B Natriuret Pep 8941 H Albumin TSH 9.270 H Crossmatch 01/07/19 01/07/19 01/07/19 03:46 03:46 21:09 WBC 14.9 H RBC Hgb Hct 35.2 L MCV 96 H RDW 15.7 H Plt Count 584 H Lymph % (Auto) 5.5 L [place] % (Auto) 10.0 H Lymph # 0.8 L [place] # 1.5 H Seg Neutrophils % 83.9 H Seg Neuts % (Manual) Lymphocytes % (Manual) Monocytes % (Manual) Seg Neutrophils # 12.5 H Seg Neutrophils # Man Lymphocytes # (Manual) Monocytes # (Manual) Basophils # (Manual) PT INR APTT POC ABG pH POC ABG pO2 55 L Sodium 134 L Potassium Chloride 95.1 L Carbon Dioxide 31 H BUN Creatinine 0.5 L Glucose 106 H Lactic Acid Calcium 7.6 L AST ALT Alkaline Phosphatase Total Creatine Kinase C-Reactive Protein NT-Pro-B Natriuret Pep Albumin TSH Crossmatch 01/08/19 01/08/19 01/08/19 06:14 06:14 19:09 WBC 14.8 H RBC Hgb Hct MCV 97 H RDW 15.9 H Plt Count 621 H Lymph % (Auto) [place] % (Auto) 9.7 H Lymph # [place] # 1.4 H Seg Neutrophils % 84.1 H Seg Neuts % (Manual) 87.0 H Lymphocytes % (Manual) 6.0 L Monocytes % (Manual) Seg Neutrophils # 12.4 H Seg Neutrophils # Man 12.9 H Lymphocytes # (Manual) 0.9 L Monocytes # (Manual) 1.0 H Basophils # (Manual) PT INR APTT POC ABG pH POC ABG pO2 Sodium 133 L Potassium Chloride 94.5 L Carbon Dioxide BUN Creatinine 0.5 L Glucose 107 H Lactic Acid 2.20 H* Calcium 7.4 L AST ALT Alkaline Phosphatase Total Creatine Kinase C-Reactive Protein NT-Pro-B Natriuret Pep Albumin TSH Crossmatch 01/08/19 01/09/19 01/09/19 19:09 06:46 06:46 WBC 14.6 H RBC 3.31 L Hgb 10.5 L Hct 31.9 L MCV 97 H RDW 15.5 H Plt Count 606 H Lymph % (Auto) [place] % (Auto) Lymph # [place] # Seg Neutrophils % Seg Neuts % (Manual) 88.0 H Lymphocytes % (Manual) 3.0 L Monocytes % (Manual) 8.0 H Seg Neutrophils # Seg Neutrophils # Man 12.8 H Lymphocytes # (Manual) 0.4 L Monocytes # (Manual) 1.2 H Basophils # (Manual) PT INR APTT POC ABG pH POC ABG pO2 Sodium 132 L Potassium Chloride 96.3 L Carbon Dioxide BUN 26 H Creatinine 0.6 L Glucose Lactic Acid Calcium 7.2 L AST ALT Alkaline Phosphatase Total Creatine Kinase C-Reactive Protein 7.80 H NT-Pro-B Natriuret Pep Albumin TSH Crossmatch 01/10/19 01/10/19 01/10/19 03:25 03:25 04:53 WBC 21.0 H RBC 2.11 L Hgb 6.8 L D Hct 20.3 L D MCV 97 H RDW 15.5 H Plt Count 583 H Lymph % (Auto) [place] % (Auto) Lymph # [place] # Seg Neutrophils % Seg Neuts % (Manual) Lymphocytes % (Manual) 9.0 L Monocytes % (Manual) Seg Neutrophils # Seg Neutrophils # Man 13.4 H Lymphocytes # (Manual) Monocytes # (Manual) 1.1 H Basophils # (Manual) 0.2 H PT INR APTT POC ABG pH POC ABG pO2 Sodium 132 L Potassium 5.4 H Chloride Carbon Dioxide 20 L D BUN 63 H Creatinine 0.7 L Glucose 119 H Lactic Acid Calcium 7.0 L AST ALT Alkaline Phosphatase Total Creatine Kinase C-Reactive Protein NT-Pro-B Natriuret Pep Albumin TSH Crossmatch See Detail 01/10/19 01/11/19 01/11/19 18:01 06:14 09:22 WBC 22.9 H 24.8 H RBC 2.25 L 1.83 L Hgb 7.2 L 5.7 L* 6.2 L Hct 21.6 L 17.6 L* 17.8 L* MCV 96 H 96 H RDW 15.7 H 15.5 H Plt Count Lymph % (Auto) [place] % (Auto) Lymph # [place] # Seg Neutrophils % Seg Neuts % (Manual) 92.5 H 88.0 H Lymphocytes % (Manual) 5.0 L 6.0 L Monocytes % (Manual) Seg Neutrophils # Seg Neutrophils # Man 21.2 H 21.8 H Lymphocytes # (Manual) 1.1 L Monocytes # (Manual) 1.5 H Basophils # (Manual) PT INR APTT POC ABG pH POC ABG pO2 Sodium Potassium Chloride Carbon Dioxide BUN Creatinine Glucose Lactic Acid Calcium AST ALT Alkaline Phosphatase Total Creatine Kinase C-Reactive Protein NT-Pro-B Natriuret Pep Albumin TSH Crossmatch 01/11/19 01/12/19 01/12/19 18:00 05:39 05:42 WBC 16.8 H RBC 2.48 L Hgb 7.6 L 7.9 L Hct 22.8 L 23.5 L MCV 95 H RDW 16.3 H Plt Count Lymph % (Auto) [place] % (Auto) Lymph # [place] # Seg Neutrophils % Seg Neuts % (Manual) 90.0 H Lymphocytes % (Manual) 3.0 L Monocytes % (Manual) Seg Neutrophils # Seg Neutrophils # Man 15.1 H Lymphocytes # (Manual) 0.5 L Monocytes # (Manual) Basophils # (Manual) PT INR APTT POC ABG pH POC ABG pO2 Sodium Potassium Chloride Carbon Dioxide BUN Creatinine 0.6 L Glucose Lactic Acid Calcium 7.3 L AST ALT Alkaline Phosphatase Total Creatine Kinase C-Reactive Protein NT-Pro-B Natriuret Pep Albumin TSH Crossmatch Allied health notes reviewed: nursing
--- NOTE | 2019-01-12 13:58 | Gastroenterology Progress Note ---
Assessment and Plan 1.gastric ulcer with hemorrhage -H/H 7.9/23.5- s/p transfusion PRBCs (inappropriate rise likely due to dilution and poor nutritional reserve) -continue to monitor H/H and transfuse as needed -no active signs of bleeding overnight or this am- currently HD stable -s/p EGD 01/10 with endoscopic clipping of with visible vessel- bx results pending -IR following with no plans for embolization at this time unless bleeding reoccurs -okay for regular diet today then NPO after MN for repeat EGD in am for further evaluation given retained blood/clots on prior EGD -continue PPI -avoid NSAIDs -continue supportive care -will follow Subjective Date of service: 01/12/19 Principal diagnosis: GI bleed Interval history: No active signs of bleeding overnight or this am per patient report. Denies abd pain or N/V. Objective - Constitutional Vitals: Temp Pulse Resp BP Pulse Ox 98.0 F 81 18 109/50 91 01/12/19 12:38 01/12/19 12:38 01/12/19 12:38 01/12/19 12:38 01/12/19 12:38 - Labs CBC & Chem 7: 01/12/19 05:39 01/12/19 05:42 Labs: Laboratory Results - last 24 hr 01/10/19 01/11/19 01/12/19 04:53 18:00 05:39 WBC 16.8 H RBC 2.48 L Hgb 7.6 L 7.9 L Hct 22.8 L 23.5 L MCV 95 H MCH 32 MCHC 34 RDW 16.3 H Plt Count 314 Add Manual Diff Complete Total Counted 100 Seg Neuts % (Manual) 90.0 H Band Neutrophils % 0 Lymphocytes % (Manual) 3.0 L Reactive Lymphs % (Man) 0 Monocytes % (Manual) 3.0 Eosinophils % (Manual) 1.0 Basophils % (Manual) 0 Metamyelocytes % 3.0 Myelocytes % 0 Promyelocytes % 0 Blast Cells % 0 Nucleated RBC % Not Reportable Seg Neutrophils # Man 15.1 H Band Neutrophils # 0.0 Lymphocytes # (Manual) 0.5 L Abs React Lymphs (Man) 0.0 Monocytes # (Manual) 0.5 Eosinophils # (Manual) 0.2 Basophils # (Manual) 0.0 Metamyelocytes # 0.5 Myelocytes # 0.0 Promyelocytes # 0.0 Blast Cells # 0.0 WBC Morphology Not Reportable Hypersegmented Neuts Not Reportable Hyposegmented Neuts Not Reportable Hypogranular Neuts Not Reportable Smudge Cells Not Reportable Toxic Granulation Not Reportable Toxic Vacuolation Not Reportable Dohle Bodies Not Reportable Pelger-Huet Anomaly Not Reportable Eugenio Rods Not Reportable Platelet Estimate Consistent w auto Clumped Platelets Not Reportable Plt Clumps, EDTA Not Reportable Large Platelets Not Reportable Giant Platelets Rare Platelet Satelliting Not Reportable Plt Morphology Comment Not Reportable RBC Morphology Not Reportable Dimorphic RBCs Not Reportable Polychromasia Not Reportable Hypochromasia Few Poikilocytosis 1+ Anisocytosis 1+ Microcytosis Not Reportable Macrocytosis Few Spherocytes Not Reportable Pappenheimer Bodies Not Reportable Sickle Cells Not Reportable Target Cells Not Reportable Tear Drop Cells Not Reportable Ovalocytes Not Reportable Helmet Cells Not Reportable Belle-Bier Bodies Not Reportable [place] Rings Not Reportable Jame Cells Not Reportable Bite Cells Not Reportable Crenated Cell Not Reportable Elliptocytes Few Acanthocytes (Spur) Not Reportable Rouleaux Not Reportable Hemoglobin C Crystals Not Reportable Schistocytes Not Reportable Malaria parasites Not Reportable Derick Bodies Not Reportable Hem Pathologist Commnt No Sodium Potassium Chloride Carbon Dioxide Anion Gap BUN Creatinine Estimated GFR BUN/Creatinine Ratio Glucose Calcium Blood Type A POSITIVE Antibody Screen Negative Crossmatch See Detail 01/12/19 05:42 WBC RBC Hgb Hct MCV MCH MCHC RDW Plt Count Add Manual Diff Total Counted Seg Neuts % (Manual) Band Neutrophils % Lymphocytes % (Manual) Reactive Lymphs % (Man) Monocytes % (Manual) Eosinophils % (Manual) Basophils % (Manual) Metamyelocytes % Myelocytes % Promyelocytes % Blast Cells % Nucleated RBC % Seg Neutrophils # Man Band Neutrophils # Lymphocytes # (Manual) Abs React Lymphs (Man) Monocytes # (Manual) Eosinophils # (Manual) Basophils # (Manual) Metamyelocytes # Myelocytes # Promyelocytes # Blast Cells # WBC Morphology Hypersegmented Neuts Hyposegmented Neuts Hypogranular Neuts Smudge Cells Toxic Granulation Toxic Vacuolation Dohle Bodies Pelger-Huet Anomaly Eugenio Rods Platelet Estimate Clumped Platelets Plt Clumps, EDTA Large Platelets Giant Platelets Platelet Satelliting Plt Morphology Comment RBC Morphology Dimorphic RBCs Polychromasia Hypochromasia Poikilocytosis Anisocytosis Microcytosis Macrocytosis Spherocytes Pappenheimer Bodies Sickle Cells Target Cells Tear Drop Cells Ovalocytes Helmet Cells Belle-Bier Bodies [place] Rings Jame Cells Bite Cells Crenated Cell Elliptocytes Acanthocytes (Spur) Rouleaux Hemoglobin C Crystals Schistocytes Malaria parasites Derick Bodies Hem Pathologist Commnt Sodium 137 Potassium 4.7 Chloride 105.0 Carbon Dioxide 25 Anion Gap 12 BUN 19 Creatinine 0.6 L Estimated GFR > 60 BUN/Creatinine Ratio 32 Glucose 88 Calcium 7.3 L Blood Type Antibody Screen Crossmatch
--- NOTE | 2019-01-12 16:01 | Progress Note ---
Assessment and Plan 78 year old male with upper GI bleeding from gastric ulcer and right lower extremity pain. No signs of bleeding. H&H did not completely respond. Suspect re-equilibration. Tolerating diet. If patient has any concerning signs of symptoms, can perform embolization. No need at this time. Has palpable right pedal pulses. No DVT. Has large fluid collection extending across his knee involving the thigh and calf, probably related to his knee replacement. ?Resolving hematoma. Also has some complaints compatible with chronic venous insuffiency. Will need outpatient vascular evaluation and outpatient orthopedic evaluation of his fluid collection. Card provided. Told patient he can followup with Dr. Alvarado or [facility] for vascular. Subjective Date of service: 01/12/19 Principal diagnosis: GI bleed Interval history: No overnight GI bleeding. No bleeding today. H&H did not completely respond to transfusion which may be re-equilibration. Reported right calf pain prior to admission. Has palpable right pedal pulses. Had knee replacement performed re cently with different pain than in the right calf. Venous ultrasound negative except for fluid collection in the right calf. Objective - Constitutional Vitals: Vital Signs - 12hr 01/12/19 01/12/19 01/12/19 06:05 06:09 06:35 Temperature Pulse Rate 72 Pulse Rate [ Anterior Bilateral Throughout] Respiratory 20 20 20 Rate Respiratory Rate [Anterior Bilateral Throughout] Blood Pressure Blood Pressure 101/40 [Right] O2 Sat by Pulse 92 Oximetry 01/12/19 01/12/19 01/12/19 07:58 08:08 08:36 Temperature 97.9 F Pulse Rate 73 Pulse Rate [ 78 76 Anterior Bilateral Throughout] Respiratory 20 Rate Respiratory 20 20 Rate [Anterior Bilateral Throughout] Blood Pressure 109/42 Blood Pressure [Right] O2 Sat by Pulse 96 94 Oximetry 01/12/19 01/12/19 01/12/19 12:38 14:13 14:23 Temperature 98.0 F Pulse Rate 81 Pulse Rate [ 78 80 Anterior Bilateral Throughout] Respiratory 18 Rate Respiratory 20 20 Rate [Anterior Bilateral Throughout] Blood Pressure 109/50 Blood Pressure [Right] O2 Sat by Pulse 91 Oximetry General appearance: Present: no acute distress - EENT Eyes: EOM intact ENT: hearing intact - Respiratory Respiratory effort: normal Extremities: pulses intact (right pedal pulses intact), normal temperature, normal color - Psychiatric Psychiatric: appropriate mood/affect, cooperative - Labs CBC & Chem 7: 01/12/19 05:39 01/12/19 05:42 Labs: Abnormal lab results 01/10/19 01/11/19 01/12/19 Range/Units 04:53 18:00 05:39 WBC 16.8 H (4.5-11.0) K/mm3 RBC 2.48 L (3.65-5.03) M/mm3 Hgb 7.6 L 7.9 L (11.8-15.2) gm/dl Hct 22.8 L 23.5 L (35.5-45.6) % MCV 95 H (84-94) fl RDW 16.3 H (13.2-15.2) % Seg Neuts % (Manual) 90.0 H (40.0-70.0) % Lymphocytes % (Manual) 3.0 L (13.4-35.0) % Seg Neutrophils # Man 15.1 H (1.8-7.7) K/mm3 Lymphocytes # (Manual) 0.5 L (1.2-5.4) K/mm3 Creatinine (0.8-1.5) mg/dL Calcium (8.4-10.2) mg/dL Crossmatch See Detail 01/12/19 Range/Units 05:42 WBC (4.5-11.0) K/mm3 RBC (3.65-5.03) M/mm3 Hgb (11.8-15.2) gm/dl Hct (35.5-45.6) % MCV (84-94) fl RDW (13.2-15.2) % Seg Neuts % (Manual) (40.0-70.0) % Lymphocytes % (Manual) (13.4-35.0) % Seg Neutrophils # Man (1.8-7.7) K/mm3 Lymphocytes # (Manual) (1.2-5.4) K/mm3 Creatinine 0.6 L (0.8-1.5) mg/dL Calcium 7.3 L (8.4-10.2) mg/dL Crossmatch Medications & Allergies - Medications Allergies/Adverse Reactions: Allergies pregabalin [From Lyrica] Adverse Reaction (Verified 01/05/19 21:43) Unknown Home Medications: Home Medications Medication Instructions Recorded Confirmed Last Taken Type Aspirin EC 81 mg PO DAILY 01/06/19 01/06/19 Unknown History Eszopiclone 3 mg PO HS 01/06/19 01/06/19 Unknown History Ferrous Sulfate [Iron] 1 tab PO DAILY 01/06/19 01/06/19 Unknown History Ibuprofen 200 mg PO Q6HR PRN 01/06/19 01/06/19 Unknown History Levothyroxine [Synthroid] 112 mcg PO DAILY 01/06/19 01/06/19 Unknown History Lisinopril [Prinivil] 5 mg PO HS 01/06/19 01/06/19 Unknown History oxyCODONE /ACETAMINOPHEN [Percocet 5 mg PO Q4HR PRN 01/06/19 01/06/19 Unknown History 5/325 mg] Active Medications: Generic Name Dose Route Start Last Admin Trade Name Freq PRN Reason Stop Dose Admin Acetaminophen 650 mg 01/06/19 01:50 01/08/19 01:54 Tylenol PO 650 mg Q4H PRN Administration Pain, Mild (1-3) Acetaminophen/Hydrocodone Bitart 1 each 01/07/19 21:36 01/10/19 22:15 Aydlett 5/325 PO 1 each Q6H PRN Administration Pain, Moderate (4-6) Albuterol/Ipratropium 1 ampul 01/06/19 03:45 01/12/19 14:13 Duoneb *Not For Prn Use* IH 1 ampul Q6HRT JONI Administration Amiodarone HCl 200 mg 01/09/19 10:00 01/12/19 11:09 Cordarone PO 200 mg QDAY JONI Administration Arformoterol Tartrate 15 mcg 01/08/19 20:00 01/12/19 07:58 Brovana Nebu IH 15 mcg Q12HRT JONI Administration Budesonide 0.5 mg 01/08/19 20:00 01/12/19 07:58 Pulmicort IH 0.5 mg Q12HRT JONI Administration Diltiazem HCl 180 mg 01/09/19 10:00 01/12/19 11:08 Cardizem Cd PO 180 mg QDAY JONI Administration Ferrous Sulfate 325 mg 01/06/19 10:00 01/12/19 11:09 Feosol PO 325 mg DAILY JONI Administration Sodium Chloride 1,000 mls @ 100 mls/hr 01/10/19 03:00 01/12/19 12:08 Nacl 0.9% 1000 Ml IV 100 mls/hr DIRECT JONI Administration Levothyroxine Sodium 112 mcg 01/06/19 06:00 01/12/19 05:31 Synthroid PO Not Given DAILY@0600 JONI Lorazepam 1 mg 01/06/19 01:57 01/10/19 10:54 Ativan IV 1 mg Q4H PRN Administration Anxiety Morphine Sulfate 1 mg 01/10/19 16:12 01/12/19 06:05 Morphine IV 1 mg Q4H PRN Administration Pain, Moderate (4-6) Multivitamins/Minerals 1 each 01/11/19 10:00 01/12/19 11:09 Theragran-M Tab PO 1 each QDAY JONI Administration Ondansetron HCl 4 mg 01/06/19 01:52 Zofran IV Q8H PRN Nausea And Vomiting Oxycodone/Acetaminophen 1 tab 01/09/19 12:45 01/11/19 22:49 Percocet 5/325 PO 1 tab Q4H PRN Administration Pain, Moderate (4-6) Pantoprazole Sodium 40 mg 01/10/19 22:00 01/12/19 11:09 Protonix IV 40 mg BID JONI Administration Zolpidem Tartrate 5 mg 01/06/19 23:57 01/11/19 22:49 Ambien PO 5 mg QHS PRN Administration Sleep
--- NOTE | 2019-01-12 19:25 | Progress Note ---
Assessment and Plan Patient awake and resting on 4 litres O2. O2 saturation 91%.No acute respiratory distress.Patient appears to be candidate for home O2. Patient told me , he has seen Dr. Corrigan as out patient, transferring the pulmonary care to Dr. Corrigan.Informed the nursing staff to transfer Pulmonary care to Dr. Morris. - Patient Problems (1) Opiate withdrawal Current Visit: Yes Status: Acute Plan to address problem: Aspiration precautions. O2 supplementation. (2) Pneumonitis Current Visit: Yes Status: Acute Plan to address problem: Patient is treated with zosyn. She is off the antibiotics. Patient has leukocytosis and chest xray still showing infiltrates recommend to continue antibiotics covering both typical and atypical pneumonia. (3) Gastric ulcer with hemorrhage Current Visit: Yes Status: Acute Plan to address problem: Management as per GI consultants and Surgeon. Subjective Date of service: 01/12/19 Principal diagnosis: GI bleed Interval history: Patient awake and resting on 4 litres O2. O2 saturation 91%.No acute respiratory distress.Patient appears to be candidate for home O2. Patient told me , he has seen Dr. Corrigan as out patient, transferring the pulmonary care to Dr. Corrigan.Informed the nursing staff to transfer Pulmonary care to Dr. Morris. Objective Vital Signs - 12hr 01/12/19 01/12/19 01/12/19 07:58 08:08 08:36 Temperature 97.9 F Pulse Rate 73 Pulse Rate [ 78 76 Anterior Bilateral Throughout] Respiratory 20 Rate Respiratory 20 20 Rate [Anterior Bilateral Throughout] Blood Pressure 109/42 O2 Sat by Pulse 96 94 Oximetry 01/12/19 01/12/19 01/12/19 12:38 14:13 14:23 Temperature 98.0 F Pulse Rate 81 Pulse Rate [ 78 80 Anterior Bilateral Throughout] Respiratory 18 Rate Respiratory 20 20 Rate [Anterior Bilateral Throughout] Blood Pressure 109/50 O2 Sat by Pulse 91 Oximetry Constitutional: no acute distress, alert, other (elderly looking CM, normocephalic and atraumatic with mildly increased resp effort at rest) Eyes: non-icteric ENT: oropharynx moist Neck: supple, no lymphadenopathy Effort: mildly labored Ascultation: Bilateral: diminished breath sounds, rhonchi Percussion: Bilateral: not dull Cardiovascular: regular rate and rhythm Gastrointestinal: normoactive bowel sounds, soft, non-tender, non-distended Integumentary: normal, rash Extremities: no cyanosis, pink and warm, pulses normal, no ischemia or petechiae, edema (Right lower extremity) Neurologic: normal mental status, non-focal exam, pupils equal and round, CN II- XII normal Psychiatric: mood appropriate, affect normal CBC and BMP: 01/12/19 05:39 01/12/19 05:42 ABG, PT/INR, D-dimer: ABG POC ABG pH 7.446 (7.35-7.45) 01/07/19 21:09 POC ABG pCO2 44.1 (35-45) 01/07/19 21:09 POC ABG pO2 55 (80-105) L 01/07/19 21:09 POC ABG HCO3 30.4 (22-26 mml/L) 01/07/19 21:09 POC ABG Total CO2 32 (23-27mmol/L) 01/07/19 21:09 POC ABG O2 Sat 89 01/07/19 21:09 PT/INR, D-dimer PT 15.6 Sec. (12.2-14.9) H 01/05/19 21:47 INR 1.17 (0.87-1.13) H 01/05/19 21:47 Abnormal lab findings: Abnormal Labs 01/05/19 01/05/19 01/05/19 21:47 21:47 21:47 WBC RBC Hgb Hct MCV RDW Plt Count Lymph % (Auto) [place] % (Auto) Lymph # [place] # Seg Neutrophils % Seg Neuts % (Manual) Lymphocytes % (Manual) Monocytes % (Manual) Seg Neutrophils # Seg Neutrophils # Man Lymphocytes # (Manual) Monocytes # (Manual) Basophils # (Manual) PT 15.6 H INR 1.17 H APTT 24.1 L POC ABG pH POC ABG pO2 Sodium 123 L Potassium 7.7 H* Chloride 85.4 L Carbon Dioxide BUN Creatinine 0.6 L Glucose Lactic Acid Calcium 7.8 L AST 115 H ALT 62 H Alkaline Phosphatase 168 H Total Creatine Kinase 45 L C-Reactive Protein NT-Pro-B Natriuret Pep Albumin 1.5 L TSH Crossmatch 01/05/19 01/05/19 01/06/19 22:07 23:16 02:16 WBC 26.5 H RBC Hgb Hct MCV 95 H RDW 15.6 H Plt Count 560 H Lymph % (Auto) [place] % (Auto) Lymph # [place] # Seg Neutrophils % Seg Neuts % (Manual) 91.0 H Lymphocytes % (Manual) 4.0 L Monocytes % (Manual) Seg Neutrophils # Seg Neutrophils # Man 24.1 H Lymphocytes # (Manual) 1.1 L Monocytes # (Manual) 1.3 H Basophils # (Manual) PT INR APTT POC ABG pH 7.494 H POC ABG pO2 Sodium 131 L D Potassium Chloride 94.0 L Carbon Dioxide BUN Creatinine 0.5 L Glucose 122 H Lactic Acid Calcium 7.3 L AST ALT Alkaline Phosphatase Total Creatine Kinase C-Reactive Protein NT-Pro-B Natriuret Pep Albumin TSH Crossmatch 01/06/19 01/06/19 01/06/19 07:24 07:24 07:24 WBC RBC Hgb Hct MCV RDW Plt Count Lymph % (Auto) [place] % (Auto) Lymph # [place] # Seg Neutrophils % Seg Neuts % (Manual) Lymphocytes % (Manual) Monocytes % (Manual) Seg Neutrophils # Seg Neutrophils # Man Lymphocytes # (Manual) Monocytes # (Manual) Basophils # (Manual) PT INR APTT POC ABG pH POC ABG pO2 Sodium 132 L Potassium Chloride 96.3 L Carbon Dioxide BUN Creatinine 0.5 L Glucose Lactic Acid Calcium 7.4 L AST ALT Alkaline Phosphatase Total Creatine Kinase C-Reactive Protein NT-Pro-B Natriuret Pep 8941 H Albumin TSH 9.270 H Crossmatch 01/07/19 01/07/19 01/07/19 03:46 03:46 21:09 WBC 14.9 H RBC Hgb Hct 35.2 L MCV 96 H RDW 15.7 H Plt Count 584 H Lymph % (Auto) 5.5 L [place] % (Auto) 10.0 H Lymph # 0.8 L [place] # 1.5 H Seg Neutrophils % 83.9 H Seg Neuts % (Manual) Lymphocytes % (Manual) Monocytes % (Manual) Seg Neutrophils # 12.5 H Seg Neutrophils # Man Lymphocytes # (Manual) Monocytes # (Manual) Basophils # (Manual) PT INR APTT POC ABG pH POC ABG pO2 55 L Sodium 134 L Potassium Chloride 95.1 L Carbon Dioxide 31 H BUN Creatinine 0.5 L Glucose 106 H Lactic Acid Calcium 7.6 L AST ALT Alkaline Phosphatase Total Creatine Kinase C-Reactive Protein NT-Pro-B Natriuret Pep Albumin TSH Crossmatch 01/08/19 01/08/19 01/08/19 06:14 06:14 19:09 WBC 14.8 H RBC Hgb Hct MCV 97 H RDW 15.9 H Plt Count 621 H Lymph % (Auto) [place] % (Auto) 9.7 H Lymph # [place] # 1.4 H Seg Neutrophils % 84.1 H Seg Neuts % (Manual) 87.0 H Lymphocytes % (Manual) 6.0 L Monocytes % (Manual) Seg Neutrophils # 12.4 H Seg Neutrophils # Man 12.9 H Lymphocytes # (Manual) 0.9 L Monocytes # (Manual) 1.0 H Basophils # (Manual) PT INR APTT POC ABG pH POC ABG pO2 Sodium 133 L Potassium Chloride 94.5 L Carbon Dioxide BUN Creatinine 0.5 L Glucose 107 H Lactic Acid 2.20 H* Calcium 7.4 L AST ALT Alkaline Phosphatase Total Creatine Kinase C-Reactive Protein NT-Pro-B Natriuret Pep Albumin TSH Crossmatch 01/08/19 01/09/19 01/09/19 19:09 06:46 06:46 WBC 14.6 H RBC 3.31 L Hgb 10.5 L Hct 31.9 L MCV 97 H RDW 15.5 H Plt Count 606 H Lymph % (Auto) [place] % (Auto) Lymph # [place] # Seg Neutrophils % Seg Neuts % (Manual) 88.0 H Lymphocytes % (Manual) 3.0 L Monocytes % (Manual) 8.0 H Seg Neutrophils # Seg Neutrophils # Man 12.8 H Lymphocytes # (Manual) 0.4 L Monocytes # (Manual) 1.2 H Basophils # (Manual) PT INR APTT POC ABG pH POC ABG pO2 Sodium 132 L Potassium Chloride 96.3 L Carbon Dioxide BUN 26 H Creatinine 0.6 L Glucose Lactic Acid Calcium 7.2 L AST ALT Alkaline Phosphatase Total Creatine Kinase C-Reactive Protein 7.80 H NT-Pro-B Natriuret Pep Albumin TSH Crossmatch 01/10/19 01/10/19 01/10/19 03:25 03:25 04:53 WBC 21.0 H RBC 2.11 L Hgb 6.8 L D Hct 20.3 L D MCV 97 H RDW 15.5 H Plt Count 583 H Lymph % (Auto) [place] % (Auto) Lymph # [place] # Seg Neutrophils % Seg Neuts % (Manual) Lymphocytes % (Manual) 9.0 L Monocytes % (Manual) Seg Neutrophils # Seg Neutrophils # Man 13.4 H Lymphocytes # (Manual) Monocytes # (Manual) 1.1 H Basophils # (Manual) 0.2 H PT INR APTT POC ABG pH POC ABG pO2 Sodium 132 L Potassium 5.4 H Chloride Carbon Dioxide 20 L D BUN 63 H Creatinine 0.7 L Glucose 119 H Lactic Acid Calcium 7.0 L AST ALT Alkaline Phosphatase Total Creatine Kinase C-Reactive Protein NT-Pro-B Natriuret Pep Albumin TSH Crossmatch See Detail 01/10/19 01/11/19 01/11/19 18:01 06:14 09:22 WBC 22.9 H 24.8 H RBC 2.25 L 1.83 L Hgb 7.2 L 5.7 L* 6.2 L Hct 21.6 L 17.6 L* 17.8 L* MCV 96 H 96 H RDW 15.7 H 15.5 H Plt Count Lymph % (Auto) [place] % (Auto) Lymph # [place] # Seg Neutrophils % Seg Neuts % (Manual) 92.5 H 88.0 H Lymphocytes % (Manual) 5.0 L 6.0 L Monocytes % (Manual) Seg Neutrophils # Seg Neutrophils # Man 21.2 H 21.8 H Lymphocytes # (Manual) 1.1 L Monocytes # (Manual) 1.5 H Basophils # (Manual) PT INR APTT POC ABG pH POC ABG pO2 Sodium Potassium Chloride Carbon Dioxide BUN Creatinine Glucose Lactic Acid Calcium AST ALT Alkaline Phosphatase Total Creatine Kinase C-Reactive Protein NT-Pro-B Natriuret Pep Albumin TSH Crossmatch 01/11/19 01/12/19 01/12/19 18:00 05:39 05:42 WBC 16.8 H RBC 2.48 L Hgb 7.6 L 7.9 L Hct 22.8 L 23.5 L MCV 95 H RDW 16.3 H Plt Count Lymph % (Auto) [place] % (Auto) Lymph # [place] # Seg Neutrophils % Seg Neuts % (Manual) 90.0 H Lymphocytes % (Manual) 3.0 L Monocytes % (Manual) Seg Neutrophils # Seg Neutrophils # Man 15.1 H Lymphocytes # (Manual) 0.5 L Monocytes # (Manual) Basophils # (Manual) PT INR APTT POC ABG pH POC ABG pO2 Sodium Potassium Chloride Carbon Dioxide BUN Creatinine 0.6 L Glucose Lactic Acid Calcium 7.3 L AST ALT Alkaline Phosphatase Total Creatine Kinase C-Reactive Protein NT-Pro-B Natriuret Pep Albumin TSH Crossmatch Chest x-ray: report reviewed (report in next page.), image reviewed Additional Studies: Chest xray done on 01/11/19 IMPRESSION: * COPD. * Suspect bilateral pneumonias. Slightly improved in the right upper lobe otherwise stable. * Prominent bilateral pulmonary markings may represent bronchitis, pulmonary vascular congestion, or interstitial pneumonitis. Allied health notes reviewed: nursing
[2019-01-12] MEDS: NORCO 5/325 PO PRN (22:28)
[2019-01-12] MEDS: AMBIEN PO PRN (22:39)
[2019-01-13] MEDS: MORPHINE IV PRN ×2 (00:10→06:44)
[2019-01-13] MEDS: DUONEB *Not for PRN Use IH SCH ×4 (00:53→18:32)
[2019-01-13] MEDS: SYNTHROID PO SCH (06:42)
[2019-01-13] MEDS: BROVANA NEBU IH SCH (09:32)
[2019-01-13] MEDS: PULMICORT IH SCH (09:32)
[2019-01-13] MEDS: CARDIZEM CD PO SCH (10:08)
[2019-01-13] MEDS: PROTONIX IV SCH (10:08)
[2019-01-13] MEDS: CORDARONE PO SCH (10:08)
[2019-01-13] MEDS: THERAGRAN-M Tab PO SCH (10:08)
[2019-01-13] MEDS: PERCOCET 5/325 PO PRN ×2 (10:21→21:39)
[2019-01-13 11:38] LABS: Hematocrit 24.2 % (35.5-45.6)
--- NOTE | 2019-01-13 12:22 | Anesthesia Day of Surgery ---
Anesthesia Day of Surgery - Day of Surgery Patient Examined: Yes Patient H&P Reviewed: Yes Patient is NPO: Yes Beta Blockers: No Cardiac Clearance: No Pulmonary Clearance: No
--- NOTE | 2019-01-13 12:23 | Anesthesia Consultation ---
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 He received 1 unit pRBCs prior to procedure for Hb 6.8. Increased work of breathing which he says in worse today than yesterday possibly 2/2 anemia.
[2019-01-13] MEDS ORDERED: NACL 0.9% 1000 ML 1,000 ML IV SCH (13:00)
[2019-01-13] MEDS ORDERED: DIPRIVAN 10 MG/ML IV ONE (13:02)
--- NOTE | 2019-01-13 14:11 | Progress Note ---
Assessment and Plan Generalized pain -chief complaint AVNRT s/p adenosine Acute GI bleed s/p blood transfusion EGD revealed gastric ulcer Hypothyroidism Pneumonia Severe hyponatremia Elevated liver transaminase Chronic lung disease Tobacco abuse Chest CTA documents an ectatic ascending thoracic aorta measuring 5cm. There are chronic emphysematous changes. There are diffuse bilateral pulmonary infiltrates. No evidence of pulmonary embolism. An echocardiogram this admission reveals moderate aortic valve calcification with moderate to severe aortic stenosis. Left ventricular systolic function is normal, EF 60%. Small fixed apical wall defect, no reversible ischemia on MPI done 01/2018. 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 Stable, cardiac ross. Subjective Date of service: 01/13/19 Principal diagnosis: GI bleed Interval history: GI bleed workup is in progress. Patient denies chest pain and shortness of breath. No cardiac events on telemetry. Objective Vital Signs Temp Pulse Pulse Pulse Pulse Resp Resp 01/13/19 12:10 97.9 F 69 17 01/13/19 10:08 81 01/13/19 10:00 69 81 18 01/13/19 09:36 01/13/19 09:35 67 66 16 01/13/19 07:56 98.4 F 18 01/13/19 04:42 98.7 F 72 18 01/13/19 01:16 85 01/13/19 00:55 83 01/12/19 23:00 98.9 F 78 20 01/12/19 22:00 76 01/12/19 19:35 98.4 F 78 18 01/12/19 15:59 98.0 F 73 20 01/12/19 14:23 80 20 01/12/19 14:13 78 20 Resp BP Pulse Ox 01/13/19 12:10 103/44 90 01/13/19 10:08 99/43 01/13/19 10:00 93 01/13/19 09:36 91 01/13/19 09:35 18 01/13/19 07:56 99/43 01/13/19 04:42 96/44 83 L 01/13/19 01:16 18 01/13/19 00:55 18 01/12/19 23:00 94/42 90 01/12/19 22:00 94 03/25/19 19:35 107/45 84 01/12/19 15:59 121/46 96 01/12/19 14:23 01/12/19 14:13 - Physical Examination General: No Apparent Distress HEENT: Positive: PERRL Neck: Positive: trachea midline Cardiac: Positive: Reg Rate and Rhythm Lungs: Positive: Decreased Breath Sounds Neuro: Positive: Grossly Intact Abdomen: Positive: Unremarkable Extremities: Absent: edema - Labs and Meds CBC 01/13/19 Range/Units 09:52 Hgb 8.0 L (11.8-15.2) gm/dl Hct 24.2 L (35.5-45.6) % - Allied health notes Allied health notes reviewed: nursing
--- NOTE | 2019-01-13 14:12 | Event Note ---
Date: 01/13/19 Patient currently off the floor. Patient only seen by Dr. Irby once for surgical risk assessment for Carpel Tunnel release surgery. No imaging was obtained as he had had an CXR done with his PCP but we do not have the results and still no not. Dr. Irby was going to screen him for ILD based on physical exam and wanted to send full ANITA panel. Unsure of what baseline film looks like but will inquire about PCP and see if I can get those records faxed to the hospital. Otherwise, based on chart review, continue current therapy and will decide about steroid use once the patient is evaluated in person. Thanks for the consult.
[2019-01-13] MEDS ORDERED: NEO SYNEPHRINE/NS Syringe(OR USE) IV ONE (14:29)
[2019-01-13] MEDS ORDERED: WATER FOR IRRIG STERILE IR ONE (14:32)
[2019-01-13] MEDS ORDERED: KETALAR ONE (14:43)
--- NOTE | 2019-01-13 14:51 | Post Operative Note ---
Pre-op diagnosis: Anemia Post-op diagnosis: other (Gastric Ulcers) Findings: 1. No blood/clots present 2. Duodenum normal 3. Gastric ulcer with clip in body without stigmata of bleeding 4. Two small antral erosions not seen previously with pigment base 5. O/W normal stomach and esophagus Procedure: EGD Anesthesia: MAC Surgeon: DAYANA WOODARD Estimated blood loss: none Pathology: none Specimen disposition: other (N/A) Condition: stable Disposition: floor (Recs: 1. Continue daily protonix PO. 2. OK to start ASA, plavix, or other cardiac blood thinners in 3 days (01/16/2019); patient should avoid all other NSAIDs. 3. Continue protonix daily therapy. 4. Regular diet and may d/c home. 5. We will sign off; patient to f/u in the clinic in 4-6 weeks to re-assess hct.)
--- NOTE | 2019-01-13 15:07 | Operative Report ---
ENDOSCOPY DOCUMENT PROCEDURE PERFORMED: Esophagogastroduodenoscopy. PREOPERATIVE DIAGNOSIS: Iron deficiency anemia with a history of gastric ulcer; second look endoscopy due to poor visualization at the first endoscopy. POSTOPERATIVE DIAGNOSES: Gastric ulcers and erosions. ENDOSCOPIST: Ryan Banks MD INSTRUMENT: The i2we video endoscope. MEDICATIONS: MAC anesthesia by Anesthesia Services. COMPLICATIONS: No apparent complications. ESTIMATED BLOOD LOSS: Minimal. SPECIMENS: None. IMPLANTS: None. ASSISTANTS: None. CONDITION AT COMPLETION: Stable. TECHNIQUE: The patient was informed of the risks and benefits of the procedure. He signed the informed consent to proceed. He was placed in the left lateral decubitus position. The above sedative medications were given. His vital signs remained stable throughout the procedure. The instrument was advanced from the mouth to the second portion of the duodenum under direct visualization. At that point, the bowel was insufflated, and the endoscope was slowly withdrawn. FINDINGS: 1. No active bleeding or blood clots present. 2. The duodenum was normal. 3. The gastric ulcer in the body of the stomach noted at the previous upper endoscopy was present without any stigmata of bleeding and the endoscopic clip that was applied previously was still adherent. 4. The two small erosions in the antrum of the stomach, not seen previously due to large amount of blood in the stomach, were identified; they had a pigmented base, but were small, less than 5 mm, and clinically not significant. 5. Otherwise, normal stomach and esophagus. RECOMMENDATIONS: 1. Continue daily Protonix. 2. Okay to start aspirin, Plavix, or other cardiac blood thinners in 3 days, on 01/16/2019; the patient should avoid all other nonsteroidal anti-inflammatory drugs. 3. Regular diet and may discharge home per our service. 4. We will sign off. The patient is to follow up in clinic in 4-6 weeks to reassess his hematocrit. JOB# [id number] TASIA/LORRIE
[2019-01-13] MEDS ORDERED: NACL 0.9% 1000 ML 1,000 ML ONE (15:32)
--- NOTE | 2019-01-13 16:21 | Progress Note ---
Assessment and Plan Assessment and plan: GI bleed/Melena. EGD revealed 1cm flat ulcer on greater curve/body, with a moderate visible vessel present. Endo Clip 1 with cold biopsy of antrum to rule out H. pylori. No esophageal varices. Follow-up H&H this morning revealed hemoglobin 8.0. PRBCs transfused. H&H is stable. Vascular surgery opts to monitor for now. GI will do repeat EGD today. Sepsis. Resolved. Patient needs criteria given the tachycardia, leukocytosis and diagnosis of pneumonia. Follow-up blood and urine cultures. Thus far negative. Leukocytosis improving. Bilateral pneumonia. Continue IV antibiotics. Follow serial chest x-ray. Right lower extremity pain. Doppler reveals questionable right abscess versus hematoma. Patient denies any trauma. Surgery evaluated patient. Chronic lung disease/COPD. Compensated. Acute hypoxemic respiratory failure. Etiology secondary to above. Chest CTA documents an ectatic ascending thoracic aorta measuring 5cm. There are chronic emphysematous changes. There are diffuse bilateral pulmonary infiltrates. No evidence of pulmonary embolism. SVT/atrial tachycardia. Resolved. Patient previously S/p adenosine Continue amiodarone by mouth per cardiology recommendations. No evidence of PE on Chest CTA. Well preserved LVEF on echo 01/2018. Small fixed apical wall defect, no reversible ischemia on MPI 01/2018. Cardiology following. Repeat echocardiogram revealed moderate to severe aortic stenosis. EF 55-60%. Hyponatremia. Improved. 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 Hypothyroidism. TSH is 9.25. Continue Synthroid. Elevated LFTs. Etiology likely secondary to sepsis/hypotension. History Interval history: Patient was seen and evaluated this morning, patient didn't have any bleeding. Hospitalist Physical - Physical exam Narrative exam: Not in cardiopulmonary distress. The patient appeared well nourished and normally developed. Vital signs as documented. Head exam is unremarkable. No scleral icterus . Neck is without jugular venous distension, thyromegaly, or carotid bruits. Lungs are clear to auscultation. Cardiac exam reveals regular rate and Rhythm. Abdominal exam reveals normal bowel sounds. Extremities are nonedematous and both femoral and pedal pulses are normal. EXPORT PACKER: Alert and oriented 3. No focal weakness. - Constitutional Vitals: Temp Pulse Resp BP Pulse Ox 98.1 F 73 21 105/47 90 01/13/19 14:49 01/13/19 15:19 01/13/19 15:19 01/13/19 15:19 01/13/19 15:19 General appearance: Present: no acute distress Results - Labs CBC & Chem 7: 01/13/19 09:52 01/12/19 05:42 Labs: Laboratory Last Values WBC 16.8 K/mm3 (4.5-11.0) H 01/12/19 05:39 RBC 2.48 M/mm3 (3.65-5.03) L 01/12/19 05:39 Hgb 8.0 gm/dl (11.8-15.2) L 01/13/19 09:52 Hct 24.2 % (35.5-45.6) L 01/13/19 09:52 MCV 95 fl (84-94) H 01/12/19 05:39 MCH 32 pg (28-32) 01/12/19 05:39 MCHC 34 % (32-34) 01/12/19 05:39 RDW 16.3 % (13.2-15.2) H 01/12/19 05:39 Plt Count 314 K/mm3 (140-440) 01/12/19 05:39 Lymph % (Auto) 5.5 % (13.4-35.0) L 01/07/19 03:46 [place] % (Auto) Attendance Secretary 01/10/19 03:25 Eos % (Auto) Attendance Secretary 01/10/19 03:25 Baso % (Auto) 0.3 % (0.0-1.8) 01/07/19 03:46 Lymph # 0.8 K/mm3 (1.2-5.4) L 01/07/19 03:46 [place] # 1.4 K/mm3 (0.0-0.8) H 01/08/19 06:14 Eos # Attendance Secretary 01/10/19 03:25 Baso # Attendance Secretary 01/10/19 03:25 Add Manual Diff Complete 01/12/19 05:39 Total Counted 100 01/12/19 05:39 Seg Neutrophils % Attendance Secretary 01/10/19 03:25 Seg Neuts % (Manual) 90.0 % (40.0-70.0) H 01/12/19 05:39 Band Neutrophils % 0 % 01/12/19 05:39 Lymphocytes % (Manual) 3.0 % (13.4-35.0) L 01/12/19 05:39 Reactive Lymphs % (Man) 0 % 01/12/19 05:39 Monocytes % (Manual) 3.0 % (0.0-7.3) 01/12/19 05:39 Eosinophils % (Manual) 1.0 % (0.0-4.3) 01/12/19 05:39 Basophils % (Manual) 0 % (0.0-1.8) 01/12/19 05:39 Metamyelocytes % 3.0 % 01/12/19 05:39 Myelocytes % 0 % 01/12/19 05:39 Promyelocytes % 0 % 01/12/19 05:39 Blast Cells % 0 % 01/12/19 05:39 Nucleated RBC % Not Reportable 01/12/19 05:39 Seg Neutrophils # Attendance Secretary 01/10/19 03:25 Seg Neutrophils # Man 15.1 K/mm3 (1.8-7.7) H 01/12/19 05:39 Band Neutrophils # 0.0 K/mm3 01/12/19 05:39 Lymphocytes # (Manual) 0.5 K/mm3 (1.2-5.4) L 01/12/19 05:39 Abs React Lymphs (Man) 0.0 K/mm3 01/12/19 05:39 Monocytes # (Manual) 0.5 K/mm3 (0.0-0.8) 01/12/19 05:39 Eosinophils # (Manual) 0.2 K/mm3 (0.0-0.4) 01/12/19 05:39 Basophils # (Manual) 0.0 K/mm3 (0.0-0.1) 01/12/19 05:39 Metamyelocytes # 0.5 K/mm3 01/12/19 05:39 Myelocytes # 0.0 K/mm3 01/12/19 05:39 Promyelocytes # 0.0 K/mm3 01/12/19 05:39 Blast Cells # 0.0 K/mm3 01/12/19 05:39 WBC Morphology Not Reportable 01/12/19 05:39 Hypersegmented Neuts Not Reportable 01/12/19 05:39 Hyposegmented Neuts Not Reportable 01/12/19 05:39 Hypogranular Neuts Not Reportable 01/12/19 05:39 Smudge Cells Not Reportable 01/12/19 05:39 Toxic Granulation Not Reportable 01/12/19 05:39 Toxic Vacuolation Not Reportable 01/12/19 05:39 Dohle Bodies Not Reportable 01/12/19 05:39 Pelger-Huet Anomaly Not Reportable 01/12/19 05:39 Eugenio Rods Not Reportable 01/12/19 05:39 Platelet Estimate Consistent w auto 01/12/19 05:39 Clumped Platelets Not Reportable 01/12/19 05:39 Plt Clumps, EDTA Not Reportable 01/12/19 05:39 Large Platelets Not Reportable 01/12/19 05:39 Giant Platelets Rare 01/12/19 05:39 Platelet Satelliting Not Reportable 01/12/19 05:39 Plt Morphology Comment Not Reportable 01/12/19 05:39 RBC Morphology Not Reportable 01/12/19 05:39 Dimorphic RBCs Not Reportable 01/12/19 05:39 Polychromasia Not Reportable 01/12/19 05:39 Hypochromasia Few 01/12/19 05:39 Poikilocytosis 1+ 01/12/19 05:39 Anisocytosis 1+ 01/12/19 05:39 Microcytosis Not Reportable 01/12/19 05:39 Macrocytosis Few 01/12/19 05:39 Spherocytes Not Reportable 01/12/19 05:39 Pappenheimer Bodies Not Reportable 01/12/19 05:39 Sickle Cells Not Reportable 01/12/19 05:39 Target Cells Not Reportable 01/12/19 05:39 Tear Drop Cells Not Reportable 01/12/19 05:39 Ovalocytes Not Reportable 01/12/19 05:39 Helmet Cells Not Reportable 01/12/19 05:39 Belle-[place]avalero Bodies Not Reportable 01/12/19 05:39 Bailey Rings Not Reportable 01/12/19 05:39 [place] Cells Not Reportable 01/12/19 05:39 Bite Cells Not Reportable 01/12/19 05:39 Crenated Cell Not Reportable 01/12/19 05:39 Elliptocytes Few 01/12/19 05:39 Acanthocytes (Spur) Not Reportable 01/12/19 05:39 Rouleaux Not Reportable 01/12/19 05:39 Hemoglobin C Crystals Not Reportable 01/12/19 05:39 Schistocytes Not Reportable 01/12/19 05:39 Malaria parasites Not Reportable 01/12/19 05:39 Derick Bodies Not Reportable 01/12/19 05:39 Hem Pathologist Commnt No 01/12/19 05:39 PT 15.6 Sec. (12.2-14.9) H 01/05/19 21:47 INR 1.17 (0.87-1.13) H 01/05/19 21:47 APTT 24.1 Sec. (24.2-36.6) L 01/05/19 21:47 POC ABG pH 7.446 (7.35-7.45) 01/07/19 21:09 POC ABG pCO2 44.1 (35-45) 01/07/19 21:09 POC ABG pO2 55 (80-105) L 01/07/19 21:09 POC ABG HCO3 30.4 (22-26 mml/L) 01/07/19 21:09 POC ABG Total CO2 32 (23-27mmol/L) 01/07/19 21:09 POC ABG O2 Sat 89 01/07/19 21:09 POC ABG Base Excess 6 ((-2) - (+3)mmol/L) 01/07/19 21:09 FiO2 32 % 01/07/19 21:09 Sodium 137 mmol/L (137-145) 01/12/19 05:42 Potassium 4.7 mmol/L (3.6-5.0) 01/12/19 05:42 Chloride 105.0 mmol/L (98-107) 01/12/19 05:42 Carbon Dioxide 25 mmol/L (22-30) 01/12/19 05:42 Anion Gap 12 mmol/L 01/12/19 05:42 BUN 19 mg/dL (9-20) 01/12/19 05:42 Creatinine 0.6 mg/dL (0.8-1.5) L 01/12/19 05:42 Estimated GFR > 60 ml/min 01/12/19 05:42 BUN/Creatinine Ratio 32 % 01/12/19 05:42 Glucose 88 mg/dL (75-100) 01/12/19 05:42 POC Glucose 100 (70-105) 01/09/19 23:54 Lactic Acid 1.60 mmol/L (0.7-2.0) 01/08/19 20:57 Calcium 7.3 mg/dL (8.4-10.2) L 01/12/19 05:42 Total Bilirubin 0.80 mg/dL (0.1-1.2) 01/05/19 21:47 AST 115 units/L (5-40) H 01/05/19 21:47 ALT 62 units/L (7-56) H 01/05/19 21:47 Alkaline Phosphatase 168 units/L (35-129) H 01/05/19 21:47 Total Creatine Kinase 45 units/L (55-170) L 01/05/19 21:47 CK-MB (CK-2) 1.3 ng/mL (0.0-4.0) 01/05/19 21:47 CK-MB (CK-2) Rel Index 2.8 (0-4) 01/05/19 21:47 Troponin T < 0.010 ng/mL (0.00-0.029) 01/06/19 18:58 C-Reactive Protein 7.80 mg/dL (0.00-1.30) H 01/08/19 19:09 NT-Pro-B Natriuret Pep 8941 pg/mL (0-900) H 01/06/19 07:24 Total Protein 6.6 g/dL (6.3-8.2) 01/05/19 21:47 Albumin 1.5 g/dL (3.9-5) L 01/05/19 21:47 Albumin/Globulin Ratio 0.3 % 01/05/19 21:47 Lipase 32 units/L (13-60) 01/05/19 21:47 TSH 9.270 mlU/mL (0.270-4.200) H 01/06/19 07:24 Free T4 0.76 ng/dL (0.76-1.46) 01/06/19 07:24 Urine Color Yellow (Yellow) 01/05/19 21:39 Urine Turbidity Clear (Clear) 01/05/19 21:39 Urine pH 6.0 (5.0-7.0) 01/05/19 21:39 Ur Specific [place] 1.005 (1.003-1.030) 01/05/19 21:39 Urine Protein <15 mg/dl mg/dL (Negative) 01/05/19 21:39 Urine Glucose (UA) Neg mg/dL (Negative) 01/05/19 21:39 Urine Ketones Neg mg/dL (Negative) 01/05/19 21:39 Urine Blood Neg (Negative) 01/05/19 21:39 Urine Nitrite Neg (Negative) 01/05/19 21:39 Urine Bilirubin Neg (Negative) 01/05/19 21:39 Urine Urobilinogen < 2.0 mg/dL (<2.0) 01/05/19 21:39 Ur Leukocyte Esterase Neg (Negative) 01/05/19 21:39 Urine WBC (Auto) 1.0 /HPF (0.0-6.0) 01/05/19 21:39 Urine RBC (Auto) 1.0 /HPF (0.0-6.0) 01/05/19 21:39 Urine Mucus Few /HPF 01/05/19 21:39 Blood Type A POSITIVE 01/10/19 04:53 Antibody Screen Negative 01/10/19 04:53 Crossmatch See Detail 01/10/19 04:53 Active Medications - Current Medications Current Medications: Generic Name Dose Route Start Last Admin Trade Name Freq PRN Reason Stop Dose Admin Acetaminophen 650 mg 01/06/19 01:50 01/08/19 01:54 Tylenol PO 650 mg Q4H PRN Administration Pain, Mild (1-3) Albuterol/Ipratropium 1 ampul 01/06/19 03:45 01/13/19 09:35 Duoneb *Not For Prn Use* IH 1 ampul Q6HRT JONI Administration Amiodarone HCl 200 mg 01/09/19 10:00 01/13/19 10:08 Cordarone PO 200 mg QDAY JONI Administration Arformoterol Tartrate 15 mcg 01/08/19 20:00 01/13/19 09:32 Brovana Nebu IH 15 mcg Q12HRT JONI Administration Budesonide 0.5 mg 01/08/19 20:00 01/13/19 09:32 Pulmicort IH 0.5 mg Q12HRT JONI Administration Diltiazem HCl 180 mg 01/09/19 10:00 01/13/19 10:08 Cardizem Cd PO Not Given QDAY JONI Levothyroxine Sodium 112 mcg 01/06/19 06:00 01/13/19 06:42 Synthroid PO Not Given DAILY@0600 JONI Lorazepam 1 mg 01/06/19 01:57 01/10/19 10:54 Ativan IV 1 mg Q4H PRN Administration Anxiety Multivitamins/Minerals 1 each 01/11/19 10:00 01/13/19 10:08 Theragran-M Tab PO 1 each QDAY JONI Administration Ondansetron HCl 4 mg 01/06/19 01:52 Zofran IV Q8H PRN Nausea And Vomiting Oxycodone/Acetaminophen 1 tab 01/09/19 12:45 01/13/19 10:21 Percocet 5/325 PO 1 tab Q4H PRN Administration Pain, Moderate (4-6) Pantoprazole Sodium 40 mg 01/14/19 10:00 Protonix PO QDAY JONI Zolpidem Tartrate 5 mg 01/06/19 23:57 01/12/19 22:39 Ambien PO 5 mg QHS PRN Administration Sleep Nutrition/Malnutrition Assess - Dietary Evaluation Nutrition/Malnutrition Findings: Nutrition Notes Start: 01/13/19 14:53 Freq: Status: Active Protocol: Document 01/13/19 14:54 RD (Rec: 01/13/19 15:00 RD [email or web address]) Co-Sign 01/13/19 14:54 LP Nutrition Notes Need for Assessment generated from: LOS Initial or Follow up Brief Note Other Pertinent Diagnosis pneumonitis, gastric ulcer hemorrhage, leukocytosis Current Diet NPO after midnight [place] Body Weight (kg) 0 Subjective/Other Information RD screen for LOS. Pt reports eating well, says he eats more than half of meals prior to NPO status. Pt reports good appetite. Pt is NPO after midnight for repeat EGD. Nutrition Intervention Revisit per MD consult or patient Sign Off request:
[2019-01-13] MEDS: AMBIEN PO PRN (21:39)
[2019-01-14] MEDS: PERCOCET 5/325 PO PRN ×3 (02:50→11:32)
[2019-01-14 05:55] VITALS: BP 120/56
[2019-01-14] MEDS: SYNTHROID PO SCH (06:29)
[2019-01-14 06:57] LABS: BUN/Creatinine Ratio 16; Blood Urea Nitrogen 8 mg/dL (9-20); Calcium 7.3 mg/dL (8.4-10.2); Hemolysis Index 124
[2019-01-14 07:45] LABS: Hematocrit 26.4 % (35.5-45.6); Hemoglobin 8.8 gm/dl (11.8-15.2); Mean Corpuscular HGB Conc 33 % (32-34); Mean Corpuscular Volume 97 fl (84-94); Platelet Count 406 K/mm3 (140-440); Red Blood Count 2.71 M/mm3 (3.65-5.03); Red Cell Distribution Width 16.6 % (13.2-15.2)
[2019-01-14] MEDS: BROVANA NEBU IH SCH ×3 (08:17→21:29)
[2019-01-14] MEDS: DUONEB *Not for PRN Use IH SCH ×5 (08:17→21:29)
[2019-01-14] MEDS: PULMICORT IH SCH ×3 (08:18→21:30)
[2019-01-14] MEDS ORDERED: PROTONIX PO SCH (10:00)
[2019-01-14 10:25] LABS: Basophils % (Manual) 0 % (0.0-1.8); Eosinophils % (Manual) 0 % (0.0-4.3); Total Cells Counted 100
[2019-01-14] MEDS ORDERED: KIONEX PO NR (10:30)
[2019-01-14 10:31] LABS: Anisocytosis 1+; Giant Platelets Rare; Macrocytosis Few; Poikilocytosis 1+
[2019-01-14 10:32] LABS: Platelet Estimate Consistent w Auto
--- NOTE | 2019-01-14 10:43 | Discharge Summary ---
Providers - Providers Date of Admission: 01/06/19 01:44 Date of discharge: 01/14/19 Attending physician: SERAFIN HERNANDEZ MD 01/06/19 08:21 Consult to Cardiology [CONS] Stat Consulting Provider: KRISS WERNER Reason For Exam: A Fib 01/06/19 08:22 Consult to Physician [CONS] Urgent Comment: Consulting Provider: HANNAH ZAMORA Physician Instructions: Reason For Exam: Critical Care 01/09/19 12:44 Consult to Physician [CONS] Routine Comment: Consulting Provider: COLT AGUIRRE Physician Instructions: Reason For Exam: right thigh abscess vs hematoma 01/10/19 03:10 Consult to Wound/ET Nurse [CONS] Routine Reason For Exam: wound eval 01/10/19 05:10 Consult to Physician [CONS] Urgent Comment: Consulting Provider: LINDA KWOK Physician Instructions: Reason For Exam: GIB 01/11/19 07:37 Consult to Physician [CONS] Routine Comment: Consulting Provider: ROMI GALVEZ Physician Instructions: Reason For Exam: GI bleed 01/12/19 20:37 Consult to Physician [CONS] Urgent Comment: Patient Known to your service Consulting Provider: GENNARO RODRIGUEZ Physician Instructions: Reason For Exam: pneumonitis 01/13/19 17:04 Physical Therapy Evaluation and Treat [CONS] Routine Comment: Reason For Exam: weakness Primary care physician: TRICIA HECTOR Hospitalization Reason for admission: GI bleed, arrhythmia Condition: Stable Hospital course: Patient is a 78 year old male who was brought to the emergency department with complaints of generalized pain. A cardiac consultation was requested for atrial fibrillation. On review, his EKG is wide complex tachycardia consistent with SVT. There is no evidence of atrial fibrillation. The patient was initially started on Cardizem drip but developed hypotension. Amiodarone drip was then initiated. On admission, Initial labs revealed leukocytosis, WBC of 26.5 and severe hyponatremia with a sodium of 123. TSH is 9.25. A chest CTA scan documents an ectatic ascending thoracic aorta measuring 5cm. There are chronic emphysematous changes. There are diffuse bilateral pulmonary infiltrates. No evidence of pulmonary embolism. Patient has a history of hypothyroidism. Patient also smokes cigarettes. He is known to [facility] and was recently seen by Dr Walker for anticipated carpal tunnel surgery. His latest cardiac workup was done January 2018. He had a stress thallium stress test that reports a small fixed mid apical wall defect with a well preserved left ventricular ejection fraction 55% on an echocardiogram. No new issues overnight. GI bleed/Melena. EGD revealed 1cm flat ulcer on greater curve/body, with a moderate visible vessel present. Endo Clip 1 with cold biopsy of antrum to rule out H. pylori. No esophageal varices. patient was transfused and post transfusion h/h was stable. Repeat EGD showed no further bleeding Sepsis. Resolved. Patient needs criteria given the tachycardia, leukocytosis and diagnosis of pneumonia. Leukocytosis improving. Bilateral pneumonia; treated with IV antibiotics. Right lower extremity pain. Doppler reveals questionable right abscess versus hematoma. Patient denies any trauma. Surgery evaluated patient. pain resolved Chronic lung disease/COPD. Compensated. Acute hypoxemic respiratory failure. Etiology secondary to above. Chest CTA documents an ectatic ascending thoracic aorta measuring 5cm. There are chronic emphysematous changes. There are diffuse bilateral pulmonary infiltrates. No evidence of pulmonary embolism. SVT/atrial tachycardia. Resolved. Patient previously S/p adenosine Continue amiodarone by mouth per cardiology recommendations. No evidence of PE on Chest CTA. Well preserved LVEF on echo 01/2018. Small fixed apical wall defect, no reversible ischemia on MPI 01/2018. Cardiology following. Repeat echocardiogram revealed moderate to severe aortic stenosis. EF 55-60%. Hyponatremia; improved. Hypothyroidism. TSH is 9.25. Continue Synthroid. Patient showed marked improvement. Patient discharged home with the advice to have follow up with his PCP and supervisor fiber locking. patient was hemodynamically stable at the time of discharge. Disposition: - TO HOME OR SELFCARE Time spent for discharge: 32 minutes - Discharge Diagnoses (1) Gastric ulcer with hemorrhage Status: Acute (2) Leukocytosis Status: Acute (3) Melena Status: Acute (4) Opiate withdrawal Status: Acute Core Measure Documentation - Palliative Care Palliative Care/ Comfort Measures: Not Applicable - Core Measures Any of the following diagnoses?: none Exam - Physical Exam Narrative exam: Not in cardiopulmonary distress. The patient appeared well nourished and normally developed. Vital signs as documented. Head exam is unremarkable. No scleral icterus . Neck is without jugular venous distension, thyromegaly, or carotid bruits. Lungs are clear to auscultation. Cardiac exam reveals regular rate and Rhythm. Abdominal exam reveals normal bowel sounds. Extremities are nonedematous and both femoral and pedal pulses are normal. HUMIDIFIER OPERATOR: Alert and oriented 3. No focal weakness. - Constitutional Vitals: Temp Pulse Resp BP Pulse Ox 98.2 F 72 18 120/56 100 01/14/19 04:54 01/14/19 08:45 01/14/19 08:45 01/14/19 04:54 01/14/19 08:21 Plan Activity: no restrictions Weight Bearing Status: Full Weight Bearing Diet: regular Additional Instructions: Please F/U with your supervisor fiber locking and pain medicine. Follow up with: TRICIA HECTOR MD [Primary Care Provider] - 3-5 Days DAYANA WOODARD MD [Staff Physician] - 6 Weeks Prescriptions: [id number] CD [Cardizem CD] 180 mg PO QDAY #30 capsule Amiodarone [Cordarone 200 MG TAB] 200 mg PO QDAY #30 tablet oxyCODONE /ACETAMINOPHEN [Percocet 5/325 mg] 5 mg PO Q4HR PRN #14 tablet PRN Reason: Pain , Severe (7-10) Pantoprazole [Protonix TAB] 40 mg PO QDAY #30 tablet
[2019-01-14] MEDS: CARDIZEM CD PO SCH (10:55)
[2019-01-14] MEDS: CORDARONE PO SCH (10:56)
[2019-01-14] MEDS: THERAGRAN-M Tab PO SCH (10:56)
--- NOTE | 2019-01-14 12:21 | Progress Note ---
Assessment and Plan Generalized pain -chief complaint AVNRT s/p adenosine Acute GI bleed s/p blood transfusion EGD revealed gastric ulcer Hypothyroidism Pneumonia Severe hyponatremia Elevated liver transaminase Chronic lung disease Tobacco abuse Chest CTA documents an ectatic ascending thoracic aorta measuring 5cm. There are chronic emphysematous changes. There are diffuse bilateral pulmonary infiltrates. No evidence of pulmonary embolism. An echocardiogram this admission reveals moderate aortic valve calcification with moderate to severe aortic stenosis. Left ventricular systolic function is normal, EF 60%. Small fixed apical wall defect, no reversible ischemia on MPI done 01/2018. 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 Outpatient management of his aortic stenosis and ascending aortic aneurysm, to be followed up next week by his outpatient client account assistant, Dr Walker. Stable, cardiac ross. Subjective Date of service: 01/14/19 Principal diagnosis: GI bleed Interval history: Patient denies chest pain and shortness of breath. No cardiac events on telemetry. Objective Vital Signs Temp Pulse Pulse Resp Resp BP Pulse Ox 01/14/19 08:45 72 18 01/14/19 08:21 74 16 100 01/14/19 04:54 98.2 F 76 20 120/56 88 01/14/19 00:16 98.4 F 102 H 18 109/47 95 01/13/19 22:00 70 01/13/19 21:27 93 01/13/19 20:23 98.4 F 77 22 96/50 91 01/13/19 15:19 73 21 105/47 90 01/13/19 15:04 79 16 96/54 90 01/13/19 14:49 98.1 F 75 16 102/44 100 - Physical Examination General: No Apparent Distress HEENT: Positive: PERRL Neck: Positive: trachea midline Cardiac: Positive: Reg Rate and Rhythm Lungs: Positive: Decreased Breath Sounds Neuro: Positive: Grossly Intact Extremities: Absent: edema - Labs and Meds CBC 01/14/19 Range/Units 07:24 WBC 18.9 H (4.5-11.0) K/mm3 RBC 2.71 L (3.65-5.03) M/mm3 Hgb 8.8 L (11.8-15.2) gm/dl Hct 26.4 L (35.5-45.6) % Plt Count 406 (140-440) K/mm3 Lymph # Geographic Information System Analyst [place] # Geographic Information System Analyst Eos # Geographic Information System Analyst Baso # Geographic Information System Analyst Comprehensive Metabolic Panel 01/14/19 Range/Units 06:02 Sodium 131 L (137-145) mmol/L Potassium 5.2 H (3.6-5.0) mmol/L Chloride 100.1 (98-107) mmol/L Carbon Dioxide 24 (22-30) mmol/L BUN 8 L (9-20) mg/dL Creatinine 0.5 L (0.8-1.5) mg/dL Glucose 75 (75-100) mg/dL Calcium 7.3 L (8.4-10.2) mg/dL - Allied health notes Allied health notes reviewed: nursing
== END 2019-01-14 20:00 | disposition home health service (06) | DRG 871 ==
LOC: ED 19:57 → 2B-ACE 01-06 01:44 → CC1 01-06 05:50 → 4A 01-07 09:42 → IMCU 01-07 10:19 → 4A 01-07 22:25
PROVIDERS: ADMIT Internal Medicine; ATTEND Internal Medicine
PROC: 30233N1 Transfusion of Nonautologous Red Blood Cells into Peripheral Vein, Percutaneous Approach (ICD-10-PCS; principal; 2019-01-10)
PROC: 3E1G88Z Irrigation of Upper GI using Irrigating Substance, Via Natural or Artificial Opening Endoscopic (ICD-10-PCS; 2019-01-10)
PROC: 0DB68ZX Excision of Stomach, Via Natural or Artificial Opening Endoscopic, Diagnostic (ICD-10-PCS; 2019-01-10)
PROC: 0DC68ZZ Extirpation of Matter from Stomach, Via Natural or Artificial Opening Endoscopic (ICD-10-PCS; 2019-01-10)
PROC: 0W3P8ZZ Control Bleeding in Gastrointestinal Tract, Via Natural or Artificial Opening Endoscopic (ICD-10-PCS; 2019-01-10)
PROC: 0DJ08ZZ Inspection of Upper Intestinal Tract, Via Natural or Artificial Opening Endoscopic (ICD-10-PCS; 2019-01-13)
DX: A41.9 Sepsis, unspecified organism (principal); J18.9 Pneumonia, unspecified organism; J96.01 Acute respiratory failure with hypoxia; K25.4 Chronic or unspecified gastric ulcer with hemorrhage; E43 Unspecified severe protein-calorie malnutrition; J44.1 Chronic obstructive pulmonary disease with (acute) exacerbation; J44.0 Chronic obstructive pulmonary disease with (acute) lower respiratory infection; I50.30 Unspecified diastolic (congestive) heart failure; I47.1 Supraventricular tachycardia; E87.1 Hypo-osmolality and hyponatremia; K92.1 Melena; F11.23 Opioid dependence with withdrawal; D50.9 Iron deficiency anemia, unspecified; I10 Essential (primary) hypertension; T40.2X5A Adverse effect of other opioids, initial encounter; F17.210 Nicotine dependence, cigarettes, uncomplicated; I35.0 Nonrheumatic aortic (valve) stenosis; Z96.642 Presence of left artificial hip joint; E03.9 Hypothyroidism, unspecified; Z89.422 Acquired absence of other left toe(s); Z88.8 Allergy status to other drugs, medicaments and biological substances; Z79.82 Long term (current) use of aspirin; Z79.899 Other long term (current) drug therapy; Y92.098 Other place in other non-institutional residence as the place of occurrence of the external cause; Z68.24 Body mass index [BMI] 24.0-24.9, adult; I95.2 Hypotension due to drugs; T46.1X5A Adverse effect of calcium-channel blockers, initial encounter; Y92.239 Unspecified place in hospital as the place of occurrence of the external cause
CPT/HCPCS: 36415; 36600; 71045; 71275; 80048; 80053; 81001; 82140; 82270; 82550; 82553; 82803; 82962; 83690; 83880; 84132; 84439; 84443; 84484; 85007; 85014; 85018; 85025; 85610; 85730; 86140; 86850; 86900; 86901; 86920; 87040; 87205; 88305; 88342; 93005; 93010; 93306; 94640; 94660; 94760; 96361; 96374; 96375; 99406; G0378; C9113; J0153; J0282; J1644; J1885; J1940; J2060; J2250; J2270; J2370; J2405; J2543; J2704; J7030; J7040; J7060; P9016; Q9967

== ENCOUNTER 2019-01-27 09:34 | Inpatient (IN) | payer MEDICARE ==
[2019-01-27] MEDS ORDERED: CARDIZEM IV ONE (10:07)
[2019-01-27 10:37] LABS: Hematocrit 26.1 % (35.5-45.6); Hemoglobin 8.6 gm/dl (11.8-15.2); Mean Corpuscular HGB Conc 33 % (32-34); Mean Corpuscular Volume 94 fl (84-94); Platelet Count 624 K/mm3 (140-440); Red Blood Count 2.77 M/mm3 (3.65-5.03); Red Cell Distribution Width 17.4 % (13.2-15.2)
[2019-01-27] MEDS ORDERED: SUBLIMAZE IV ONE (10:50)
[2019-01-27] MEDS ORDERED: NACL 0.9% 1000 ML 1,000 ML IV ONE (10:51)
[2019-01-27 11:12] LABS: Total Cells Counted 100
[2019-01-27 11:13] LABS: Anisocytosis Few; Eosinophils % (Manual) 0 % (0.0-4.3); Poikilocytosis Few
[2019-01-27 11:14] LABS: Giant Platelets Rare; Platelet Estimate Consistent w Auto
--- NOTE | 2019-01-27 11:25 | XRay Report ---
AP CHEST: HISTORY: chest pain Compared to 01/11/19. The lungs are hyperinflated with prominent interstitial markings bilaterally. The right lung is slightly more affected. This appears to represent chronic interstitial changes. The overall pattern is unchanged since 01/11/19. No large pleural effusion or pneumothorax. Heart size is within normal limits. IMPRESSION: Hyperinflated lungs suggesting underlying COPD. Prominent interstitium, right greater than left. No significant change is appreciated since 01/08/19.
[2019-01-27] MEDS ORDERED: CARDIZEM 100 MG in D5W 80 ML IV SCH (12:00)
[2019-01-27] MEDS ORDERED: CORDARONE 150 MG in D5W 97 ML IV ONE (13:00)
[2019-01-27 13:05] LABS: Alanine Aminotransferase 20 units/L (7-56); Albumin 1.9 g/dL (3.9-5); BUN/Creatinine Ratio 30; Blood Urea Nitrogen 21 mg/dL (9-20); Calcium 7.6 mg/dL (8.4-10.2); Hemolysis Index 4
--- NOTE | 2019-01-27 13:06 | Emergency Department Report ---
ED General Adult HPI - General Chief complaint: Weakness Stated complaint: WEAKNESS/SWELLING Time Seen by Provider: 01/27/19 10:05 Source: EMS Mode of arrival: Ambulatory Limitations: No Limitations - History of Present Illness Initial comments: Patient is a 78-year-old male past medical history of atrial fibrillation who presents with left leg pain and atrial fibrillation with RVR. Patient states that his pain is severe and he's had like swallowing best thing going on for last couple weeks. He states he had Doppler ultrasound which didn't show any DVT 2 weeks ago. Patient's pain is a 10 out of 10 as an achy type of pain makes it better and nothing makes it worse. Severity scale (0 -10): 9 - Related Data Home Medications Medication Instructions Recorded Confirmed Last Taken Aspirin EC 81 mg PO DAILY 01/06/19 01/06/19 Unknown Eszopiclone 3 mg PO HS 01/06/19 01/06/19 Unknown Ferrous Sulfate [Iron 325 MG] 1 tab PO DAILY 01/06/19 01/06/19 Unknown Ibuprofen 200 mg PO Q6HR PRN 01/06/19 01/06/19 Unknown Levothyroxine [Synthroid] 112 mcg PO DAILY 01/06/19 01/06/19 Unknown Lisinopril [Prinivil] 5 mg PO HS 01/06/19 01/06/19 Unknown Previous Rx's Medication Instructions Recorded Last Taken Type Amiodarone [Cordarone 200 MG TAB] 200 mg PO QDAY #30 tablet 01/14/19 Unknown Rx Pantoprazole [Protonix TAB] 40 mg PO QDAY #30 tablet 01/14/19 Unknown Rx dilTIAZem CD [Cardizem CD] 180 mg PO QDAY #30 capsule 01/14/19 Unknown Rx oxyCODONE /ACETAMINOPHEN [Percocet 5 mg PO Q4HR PRN #14 tablet 01/14/19 Unknown Rx 5/325 mg] Allergies Allergy/AdvReac Type Severity Reaction Status Date / Time pregabalin [From Lyrica] AdvReac Unknown Verified 01/05/19 21:43 ED Review of Systems ROS: Stated complaint: WEAKNESS/SWELLING Other details as noted in HPI Constitutional: denies: chills, fever Eyes: denies: eye pain, eye discharge, vision change ENT: denies: ear pain, throat pain Respiratory: denies: cough, shortness of breath, wheezing Cardiovascular: denies: chest pain, palpitations Endocrine: no symptoms reported Gastrointestinal: denies: abdominal pain, nausea, diarrhea Genitourinary: denies: urgency, dysuria Musculoskeletal: denies: back pain, joint swelling, arthralgia Skin: denies: rash, lesions Neurological: denies: headache, weakness, paresthesias Psychiatric: denies: anxiety, depression Hematological/Lymphatic: denies: easy bleeding, easy bruising ED Past Medical Hx - Past Medical History Previous Medical History?: Yes Hx Hypertension: Yes Hx Congestive Heart Failure: No Hx Renal Disease: No Hx Headaches / Migraines: No Hx Seizures: No Hx Asthma: Yes Hx COPD: Yes Hx Dementia: No Additional medical history: hyperthyroid - Surgical History Past Surgical History?: Yes Additional Surgical History: left hip replacement x5, B/L knees, 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, 2 neck surgeries - Social History Smoking Status: Current Every Day Smoker Substance Use Type: None - Medications Home Medications: Home Medications Medication Instructions Recorded Confirmed Last Taken Type Aspirin EC 81 mg PO DAILY 01/06/19 01/06/19 Unknown History Eszopiclone 3 mg PO HS 01/06/19 01/06/19 Unknown History Ferrous Sulfate [Iron 325 MG] 1 tab PO DAILY 01/06/19 01/06/19 Unknown History Ibuprofen 200 mg PO Q6HR PRN 01/06/19 01/06/19 Unknown History Levothyroxine [Synthroid] 112 mcg PO DAILY 01/06/19 01/06/19 Unknown History Lisinopril [Prinivil] 5 mg PO HS 01/06/19 01/06/19 Unknown History Amiodarone [Cordarone 200 MG TAB] 200 mg PO QDAY #30 tablet 01/14/19 Unknown Rx Pantoprazole [Protonix TAB] 40 mg PO QDAY #30 tablet 01/14/19 Unknown Rx dilTIAZem CD [Cardizem CD] 180 mg PO QDAY #30 capsule 01/14/19 Unknown Rx oxyCODONE /ACETAMINOPHEN [Percocet 5 mg PO Q4HR PRN #14 tablet 01/14/19 Unknown Rx 5/325 mg] ED Physical Exam - General Limitations: No Limitations General appearance: alert, in no apparent distress - Head Head exam: Present: atraumatic, normocephalic - Eye Eye exam: Present: normal appearance - ENT ENT exam: Present: mucous membranes moist - Neck Neck exam: Present: normal inspection - Respiratory Respiratory exam: Present: normal lung sounds bilaterally. Absent: respiratory distress - Cardiovascular Cardiovascular Exam: Present: other (irregularly irregular ). Absent: systolic murmur, diastolic murmur, rubs, gallop - GI/Abdominal GI/Abdominal exam: Present: soft, normal bowel sounds - Rectal Rectal exam: Present: deferred - Extremities Exam Extremities exam: Present: normal inspection - Back Exam Back exam: Present: normal inspection - Neurological Exam Neurological exam: Present: alert, oriented X3 - Psychiatric Psychiatric exam: Present: normal affect, normal mood - Skin Skin exam: Present: warm, dry, intact, normal color. Absent: rash ED Course Vital Signs 01/27/19 01/27/19 01/27/19 10:00 10:15 10:30 Pulse Rate 129 H 140 H 153 H Respiratory 31 H 33 H 27 H Rate Blood Pressure 103/58 102/62 99/56 O2 Sat by Pulse 96 100 96 Oximetry 01/27/19 01/27/19 01/27/19 10:52 11:00 11:30 Pulse Rate 135 H 125 H 136 H Respiratory 31 H 33 H Rate Blood Pressure 102/58 100/58 89/53 O2 Sat by Pulse 92 Oximetry 01/27/19 01/27/19 01/27/19 12:00 13:30 13:51 Pulse Rate 136 H 149 H Respiratory 27 H 30 H 18 Rate Blood Pressure 92/56 97/59 O2 Sat by Pulse 95 90 98 Oximetry 01/27/19 14:00 Pulse Rate 142 H Respiratory 31 H Rate Blood Pressure 106/62 O2 Sat by Pulse 86 Oximetry ED Medical Decision Making - Lab Data Result diagrams: 01/27/19 10:23 01/27/19 10:19 Lab Results 01/27/19 01/27/19 Range/Units 10:19 10:23 WBC 11.9 H (4.5-11.0) K/mm3 RBC 2.77 L (3.65-5.03) M/mm3 Hgb 8.6 L (11.8-15.2) gm/dl Hct 26.1 L (35.5-45.6) % MCV 94 (84-94) fl MCH 31 (28-32) pg MCHC 33 (32-34) % RDW 17.4 H (13.2-15.2) % Plt Count 624 H (140-440) K/mm3 Add Manual Diff Complete Total Counted 100 Seg Neutrophils % Biology Specimen Technician Seg Neuts % (Manual) 90.0 H (40.0-70.0) % Band Neutrophils % 0 % Lymphocytes % (Manual) 7.0 L (13.4-35.0) % Reactive Lymphs % (Man) 0 % Monocytes % (Manual) 3.0 (0.0-7.3) % Eosinophils % (Manual) 0 (0.0-4.3) % Metamyelocytes % 0 % Myelocytes % 0 % Promyelocytes % 0 % Blast Cells % 0 % Nucleated RBC % Not Reportable Seg Neutrophils # Man 10.7 H (1.8-7.7) K/mm3 Band Neutrophils # 0.0 K/mm3 Lymphocytes # (Manual) 0.8 L (1.2-5.4) K/mm3 Abs React Lymphs (Man) 0.0 K/mm3 Monocytes # (Manual) 0.4 (0.0-0.8) K/mm3 Eosinophils # (Manual) 0.0 (0.0-0.4) K/mm3 Basophils # (Manual) 0.0 (0.0-0.1) K/mm3 Metamyelocytes # 0.0 K/mm3 Myelocytes # 0.0 K/mm3 Promyelocytes # 0.0 K/mm3 Blast Cells # 0.0 K/mm3 WBC Morphology Not Reportable Hypersegmented Neuts Not Reportable Hyposegmented Neuts Not Reportable Hypogranular Neuts Not Reportable Smudge Cells Not Reportable Toxic Granulation Not Reportable Toxic Vacuolation Not Reportable Dohle Bodies Not Reportable Pelger-Huet Anomaly Not Reportable Eugenio Rods Not Reportable Platelet Estimate Consistent w auto Clumped Platelets Not Reportable Plt Clumps, EDTA Not Reportable Large Platelets Not Reportable Giant Platelets Rare Platelet Satelliting Not Reportable Plt Morphology Comment Not Reportable RBC Morphology Not Reportable Dimorphic RBCs Not Reportable Polychromasia Not Reportable Hypochromasia Not Reportable Poikilocytosis Few Anisocytosis Few Microcytosis Not Reportable Macrocytosis Not Reportable Spherocytes Not Reportable Pappenheimer Bodies Not Reportable Sickle Cells Not Reportable Target Cells Not Reportable Tear Drop Cells Not Reportable Ovalocytes Not Reportable Helmet Cells Not Reportable [place] Bodies Not Reportable [place] Rings Not Reportable [place] Cells Not Reportable Bite Cells Not Reportable Crenated Cell Not Reportable Elliptocytes Rare Acanthocytes (Spur) Not Reportable Rouleaux Not Reportable Hemoglobin C Crystals Not Reportable Schistocytes Not Reportable Malaria parasites Not Reportable Derick Bodies Not Reportable Hem Pathologist Commnt No Sodium 130 L (137-145) mmol/L Potassium 4.3 (3.6-5.0) mmol/L Chloride 93.6 L (98-107) mmol/L Carbon Dioxide 25 (22-30) mmol/L Anion Gap 16 mmol/L BUN 21 H (9-20) mg/dL Creatinine 0.7 L (0.8-1.5) mg/dL Estimated GFR > 60 ml/min BUN/Creatinine Ratio 30 % Glucose 98 (75-100) mg/dL Calcium 7.6 L (8.4-10.2) mg/dL Total Bilirubin 0.40 (0.1-1.2) mg/dL AST 23 (5-40) units/L ALT 20 (7-56) units/L Alkaline Phosphatase 111 (35-129) units/L Troponin T < 0.010 (0.00-0.029) ng/mL Total Protein 5.9 L (6.3-8.2) g/dL Albumin 1.9 L (3.9-5) g/dL Albumin/Globulin Ratio 0.5 % - EKG Data -: EKG Interpreted by In - EKG Data 01/27/19 13:44 EKG shows atrial fibrillation with RVR and prolonged QT interval at rate 139. - Radiology Data Radiology results: report reviewed, image reviewed Chest x-ray: Shows no acute cardiopulmonary disease signs of COPD - Medical Decision Making Chief medical diagnosis: Atrial fibrillation with RVR Differential medical diagnosis: Electrolyte abnormality non-STEMI, pneumonia CHEST x-ray CBC BMP IV diltiazem IV amiodarone IV magnesium and I will admit patient to the hospitalist service. Critical Care Time: Yes (60) Critical care time in (mins) excluding proc time.: 60 Critical care attestation.: If time is entered above; I have spent that time in minutes in the direct care of this critically ill patient, excluding procedure time. Critical care time spent in patient's bedside 30 minutes Critical care time spent reviewing laboratory findings 20 minutes Critical care time spent with consultants 10 minutes ED Disposition Clinical Impression: Atrial fibrillation with RVR, Left leg pain Disposition: OP ADMIT IP TO THIS HOSP Is pt being admited?: Yes Does the pt Need Aspirin: No Condition: Stable Referrals: GEO KUMAR [Other] - 3-5 Days
[2019-01-27] MEDS ORDERED: PERCOCET 5/325 PO ONE (13:24)
[2019-01-27] MEDS ORDERED: MAGNESIUM SULFATE 1 GM in NACL 0.9% 50 ML IV ONE (13:24)
[2019-01-27] MEDS ORDERED: LOVENOX SUB-Q SCH (16:00)
[2019-01-27] MEDS: NACL 0.9% 1000 ML 1,000 ML IV SCH (18:44)
[2019-01-27] MEDS: LOVENOX SUB-Q SCH (18:44)
[2019-01-27] MEDS ORDERED: IBUPROFEN PO PRN (22:11)
--- NOTE | 2019-01-27 22:11 | History and Physical Report ---
History of Present Illness Date of examination: 01/27/19 Date of admission: 01/27/19 15:51 Chief complaint: Palpitations and LLE swelling History of present illness: 78-year-old male with past medical history of atrial fibrillation presents with left leg pain and Palpitations. Patient states that his pain is severe --10/10. He states he had Doppler ultrasound which didn't show any DVT 2 weeks ago. Patient's pain is a 10 out of 10 .Refuses Doppler again. 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, 2 neck surgeries Social History Smoking Status: Current Every Day Smoker Substance Use Type: None Family History Htn Medications Home Medications: Home Medications Medication Instructions Recorded Confirmed Last Taken Type Aspirin EC 81 mg PO DAILY 01/06/19 01/06/19 Unknown History Eszopiclone 3 mg PO HS 01/06/19 01/06/19 Unknown History Ferrous Sulfate [Iron 325 MG] 1 tab PO DAILY 01/06/19 01/06/19 Unknown History Ibuprofen 200 mg PO Q6HR PRN 01/06/19 01/06/19 Unknown History Levothyroxine [Synthroid] 112 mcg PO DAILY 01/06/19 01/06/19 Unknown History Lisinopril [Prinivil] 5 mg PO HS 01/06/19 01/06/19 Unknown History Amiodarone [Cordarone 200 MG TAB] 200 mg PO QDAY #30 tablet 01/14/19 Unknown Rx Pantoprazole [Protonix TAB] 40 mg PO QDAY #30 tablet 01/14/19 Unknown Rx dilTIAZem CD [Cardizem CD] 180 mg PO QDAY #30 capsule 01/14/19 Unknown Rx oxyCODONE /ACETAMINOPHEN [Percocet 5 mg PO Q4HR PRN #14 tablet 01/14/19 Unknown Rx 5/325 mg] Review of Systems ROS: Stated complaint: WEAKNESS/SWELLING Other details as noted in HPI Constitutional: denies: chills, fever Eyes: denies: eye pain, eye discharge, vision change ENT: denies: ear pain, throat pain Respiratory: denies: cough, shortness of breath, wheezing Cardiovascular: denies: chest pain, palpitations Endocrine: no symptoms reported Gastrointestinal: denies: abdominal pain, nausea, diarrhea Genitourinary: denies: urgency, dysuria Musculoskeletal: denies: back pain, joint swelling, arthralgia Skin: denies: rash, lesions Neurological: denies: headache, weakness, paresthesias Psychiatric: denies: anxiety, depression Hematological/Lymphatic: denies: easy bleeding, easy bruising Medications and Allergies Allergies Allergy/AdvReac Type Severity Reaction Status Date / Time pregabalin [From Lyrica] AdvReac Unknown Verified 01/05/19 21:43 Home Medications Medication Instructions Recorded Confirmed Last Taken Type Eszopiclone 3 mg PO HS 01/06/19 01/27/19 Unknown History Ferrous Sulfate [Iron 325 MG] 325 mg PO DAILY 01/06/19 01/27/19 Unknown History Ibuprofen 200 mg PO Q6HR PRN 01/06/19 01/27/19 Unknown History Levothyroxine [Synthroid] 112 mcg PO DAILY 01/06/19 01/27/19 Unknown History Lisinopril [Prinivil] 5 mg PO HS 01/06/19 01/27/19 Unknown History Amiodarone [Cordarone 200 MG TAB] 200 mg PO QDAY #30 tablet 01/14/19 01/27/19 Unknown Rx Pantoprazole [Protonix TAB] 40 mg PO QDAY #30 tablet 01/14/19 01/27/19 Unknown Rx dilTIAZem CD [Cardizem CD] 180 mg PO QDAY #30 capsule 01/14/19 01/27/19 Unknown Rx Aspirin EC [Aspirin Enteric Coated 81 mg PO QDAY 01/27/19 01/27/19 Unknown History TAB] Active Meds: Active Medications Enoxaparin Sodium (Lovenox) 40 mg SUB-Q QDAY@1000 JONI Last Admin: 01/27/19 18:44 Dose: 40 mg Documented by: Diltiazem HCl 100 mg/ Dextrose 100 mls @ 5 mls/hr IV DIRECT JONI; Protocol Last Admin: 01/27/19 21:23 Dose: 5 mg/hr, 5 mls/hr Documented by: Sodium Chloride (Nacl 0.9% 1000 Ml) 1,000 mls @ 75 mls/hr IV DIRECT JONI Last Admin: 01/27/19 18:44 Dose: 75 mls/hr Documented by: Exam - Constitutional Vitals: Temp Pulse Resp BP Pulse Ox 98.2 F 72 20 99/51 94 01/27/19 18:24 01/27/19 18:24 01/27/19 18:24 01/27/19 18:24 01/27/19 21:12 General appearance: Present: no acute distress, well-nourished - EENT Eyes: Present: PERRL ENT: hearing intact, clear oral mucosa - Neck Neck: Present: supple, normal ROM - Respiratory Respiratory effort: normal Respiratory: bilateral: CTA - Cardiovascular Heart rate: 130 Rhythm: irregularly irregular Heart Sounds: Present: S1 & S2. Absent: rub, click - Extremities Extremities: no ischemia, pulses intact, pulses symmetrical, No edema, abnormal (LLE swelling) Peripheral Pulses: within normal limits - Abdominal General gastrointestinal: Present: soft, non-tender, non-distended, normal bowel sounds Male genitourinary: Present: normal - Integumentary Integumentary: Present: clear, warm, dry - Musculoskeletal Musculoskeletal: gait normal, strength equal bilaterally - Psychiatric Psychiatric: appropriate mood/affect, intact judgment & insight - Neurologic Neurologic: CNII-XII intact, moves all extremities - Allied Health Allied health notes reviewed: nursing, case management Results - Labs CBC & Chem 7: 01/27/19 10:23 01/27/19 10:19 Labs: Laboratory Last Values WBC 11.9 K/mm3 (4.5-11.0) H 01/27/19 10:23 RBC 2.77 M/mm3 (3.65-5.03) L 01/27/19 10:23 Hgb 8.6 gm/dl (11.8-15.2) L 01/27/19 10:23 Hct 26.1 % (35.5-45.6) L 01/27/19 10:23 MCV 94 fl (84-94) 01/27/19 10:23 MCH 31 pg (28-32) 01/27/19 10:23 MCHC 33 % (32-34) 01/27/19 10:23 RDW 17.4 % (13.2-15.2) H 01/27/19 10:23 Plt Count 624 K/mm3 (140-440) H 01/27/19 10:23 Add Manual Diff Complete 01/27/19 10:23 Total Counted 100 01/27/19 10:23 Seg Neutrophils % Time Study Technologist 01/27/19 10:23 Seg Neuts % (Manual) 90.0 % (40.0-70.0) H 01/27/19 10:23 Band Neutrophils % 0 % 01/27/19 10:23 Lymphocytes % (Manual) 7.0 % (13.4-35.0) L 01/27/19 10:23 Reactive Lymphs % (Man) 0 % 01/27/19 10:23 Monocytes % (Manual) 3.0 % (0.0-7.3) 01/27/19 10:23 Eosinophils % (Manual) 0 % (0.0-4.3) 01/27/19 10:23 Metamyelocytes % 0 % 01/27/19 10:23 Myelocytes % 0 % 01/27/19 10:23 Promyelocytes % 0 % 01/27/19 10:23 Blast Cells % 0 % 01/27/19 10:23 Nucleated RBC % Not Reportable 01/27/19 10:23 Seg Neutrophils # Man 10.7 K/mm3 (1.8-7.7) H 01/27/19 10:23 Band Neutrophils # 0.0 K/mm3 01/27/19 10:23 Lymphocytes # (Manual) 0.8 K/mm3 (1.2-5.4) L 01/27/19 10:23 Abs React Lymphs (Man) 0.0 K/mm3 01/27/19 10:23 Monocytes # (Manual) 0.4 K/mm3 (0.0-0.8) 01/27/19 10:23 Eosinophils # (Manual) 0.0 K/mm3 (0.0-0.4) 01/27/19 10:23 Basophils # (Manual) 0.0 K/mm3 (0.0-0.1) 01/27/19 10:23 Metamyelocytes # 0.0 K/mm3 01/27/19 10:23 Myelocytes # 0.0 K/mm3 01/27/19 10:23 Promyelocytes # 0.0 K/mm3 01/27/19 10:23 Blast Cells # 0.0 K/mm3 01/27/19 10:23 WBC Morphology Not Reportable 01/27/19 10:23 Hypersegmented Neuts Not Reportable 01/27/19 10:23 Hyposegmented Neuts Not Reportable 01/27/19 10:23 Hypogranular Neuts Not Reportable 01/27/19 10:23 Smudge Cells Not Reportable 01/27/19 10:23 Toxic Granulation Not Reportable 01/27/19 10:23 Toxic Vacuolation Not Reportable 01/27/19 10:23 Dohle Bodies Not Reportable 01/27/19 10:23 Pelger-Huet Anomaly Not Reportable 01/27/19 10:23 Eugenio Rods Not Reportable 01/27/19 10:23 Platelet Estimate Consistent w auto 01/27/19 10:23 Clumped Platelets Not Reportable 01/27/19 10:23 Plt Clumps, EDTA Not Reportable 01/27/19 10:23 Large Platelets Not Reportable 01/27/19 10:23 Giant Platelets Rare 01/27/19 10:23 Platelet Satelliting Not Reportable 01/27/19 10:23 Plt Morphology Comment Not Reportable 01/27/19 10:23 RBC Morphology Not Reportable 01/27/19 10:23 Dimorphic RBCs Not Reportable 01/27/19 10:23 Polychromasia Not Reportable 01/27/19 10:23 Hypochromasia Not Reportable 01/27/19 10:23 Poikilocytosis Few 01/27/19 10:23 Anisocytosis Few 01/27/19 10:23 Microcytosis Not Reportable 01/27/19 10:23 Macrocytosis Not Reportable 01/27/19 10:23 Spherocytes Not Reportable 01/27/19 10:23 Pappenheimer Bodies Not Reportable 01/27/19 10:23 Sickle Cells Not Reportable 01/27/19 10:23 Target Cells Not Reportable 01/27/19 10:23 Tear Drop Cells Not Reportable 01/27/19 10:23 Ovalocytes Not Reportable 01/27/19 10:23 Helmet Cells Not Reportable 01/27/19 10:23 [place] Bodies Not Reportable 01/27/19 10:23 [place] Rings Not Reportable 01/27/19 10:23 [place] Cells Not Reportable 01/27/19 10:23 Bite Cells Not Reportable 01/27/19 10:23 Crenated Cell Not Reportable 01/27/19 10:23 Elliptocytes Rare 01/27/19 10:23 Acanthocytes (Spur) Not Reportable 01/27/19 10:23 Rouleaux Not Reportable 01/27/19 10:23 Hemoglobin C Crystals Not Reportable 01/27/19 10:23 Schistocytes Not Reportable 01/27/19 10:23 Malaria parasites Not Reportable 01/27/19 10:23 Derick Bodies Not Reportable 01/27/19 10:23 Hem Pathologist Commnt No 01/27/19 10:23 Sodium 130 mmol/L (137-145) L 01/27/19 10:19 Potassium 4.3 mmol/L (3.6-5.0) 01/27/19 10:19 Chloride 93.6 mmol/L (98-107) L 01/27/19 10:19 Carbon Dioxide 25 mmol/L (22-30) 01/27/19 10:19 Anion Gap 16 mmol/L 01/27/19 10:19 BUN 21 mg/dL (9-20) H 01/27/19 10:19 Creatinine 0.7 mg/dL (0.8-1.5) L 01/27/19 10:19 Estimated GFR > 60 ml/min 01/27/19 10:19 BUN/Creatinine Ratio 30 % 01/27/19 10:19 Glucose 98 mg/dL (75-100) 01/27/19 10:19 Calcium 7.6 mg/dL (8.4-10.2) L 01/27/19 10:19 Total Bilirubin 0.40 mg/dL (0.1-1.2) 01/27/19 10:19 AST 23 units/L (5-40) 01/27/19 10:19 ALT 20 units/L (7-56) 01/27/19 10:19 Alkaline Phosphatase 111 units/L (35-129) 01/27/19 10:19 Troponin T < 0.010 ng/mL (0.00-0.029) 01/27/19 10:19 Total Protein 5.9 g/dL (6.3-8.2) L 01/27/19 10:19 Albumin 1.9 g/dL (3.9-5) L 01/27/19 10:19 Albumin/Globulin Ratio 0.5 % 01/27/19 10:19 - Imaging and Cardiology EKG: report reviewed (Afib with RVR 130/min) Chest x-ray: report reviewed Imaging and Cardiology: CXR IMPRESSION: Hyperinflated lungs suggesting underlying COPD. Prominent interstitium, right greater than left. No significant change is appreciated since 01/08/19. Assessment and Plan Advance Directives: Yes (Full code) VTE prophylaxis?: Chemical Plan of care discussed with patient/family: Yes - Patient Problems (1) Atrial fibrillation with RVR Current Visit: Yes Status: Acute Plan to address problem: Cardizem drip initiated Cont Amiodarone (2) HTN (hypertension) Current Visit: Yes Status: Chronic Qualifiers: Hypertension type: essential hypertension Qualified Code(s): I10 - Essential (primary) hypertension Plan to address problem: Cont antihertensives (3) Hypothyroidism Current Visit: Yes Status: Chronic Qualifiers: Hypothyroidism type: acquired Qualified Code(s): E03.9 - Hypothyroidism, unspecified Plan to address problem: Cont synthyroid Check TSH (4) GERD (gastroesophageal reflux disease) Current Visit: Yes Status: Chronic Qualifiers: Esophagitis presence: without esophagitis Qualified Code(s): K21.9 - Gastro-esophageal reflux disease without esophagitis Plan to address problem: On PPI's (5) Anemia Current Visit: Yes Status: Chronic Qualifiers: Anemia type: unspecified type Qualified Code(s): D64.9 - Anemia, unspecified Plan to address problem: Anemia w/u (6) Left leg pain Current Visit: Yes Status: Acute Plan to address problem: Vascular surgery consult (7) DVT prophylaxis Current Visit: Yes Status: Acute Plan to address problem: On Lovenox and GI prophylaxis
[2019-01-28] MEDS: SYNTHROID PO SCH (06:39)
[2019-01-28] MEDS: NACL 0.9% 1000 ML 1,000 ML IV SCH ×2 (07:31→23:51)
[2019-01-28 07:48] LABS: % Iron Saturation 7.61 %
[2019-01-28] MEDS: LOVENOX SUB-Q SCH (09:33)
[2019-01-28] MEDS: PROTONIX PO SCH (09:33)
[2019-01-28] MEDS: FEOSOL PO SCH (09:33)
[2019-01-28] MEDS: HALFPRIN EC PO SCH (09:33)
[2019-01-28] MEDS ORDERED: CORDARONE PO SCH (10:00)
[2019-01-28] MEDS ORDERED: CARDIZEM CD PO SCH (10:00)
--- NOTE | 2019-01-28 10:41 | Consultation ---
History of Present Illness Consult date: 01/28/19 Consult reason: atrial fibrillation History of present illness: Patient is a 78 year old male who presented with complaints of generalized pain and weakness, found with rapid atrial fibrillation. Cardiac consultation requested. Patient denies unusual shortness of breath, palpitations and dizziness. Currently on intravenous Diltiazem for rate control. Labs revealed hyponatremia with a sodium of 130 and anemia, Hgb of 8.6. White count of 11,000. TSH 8.0. Patient was admitted to this hospital last month with similar presentation, narrow complex tachycardia, not responsive to intravenous adenosine but responsive to intravenous Diltiazem. An echocardiogram revealed moderate aortic valve calcification with moderate to severe aortic stenosis. Left ventricular systolic function is normal, EF 60%. 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 Patient admits to compliance with amiodarone and diltiazem upon his prior discharge. Medications and Allergies Allergies Allergy/AdvReac Type Severity Reaction Status Date / Time pregabalin [From Lyrica] AdvReac Unknown Verified 01/05/19 21:43 Home Medications Medication Instructions Recorded Confirmed Last Taken Type Eszopiclone 3 mg PO HS 01/06/19 01/27/19 Unknown History Ferrous Sulfate [Iron 325 MG] 325 mg PO DAILY 01/06/19 01/27/19 Unknown History Ibuprofen 200 mg PO Q6HR PRN 01/06/19 01/27/19 Unknown History Levothyroxine [Synthroid] 112 mcg PO DAILY 01/06/19 01/27/19 Unknown History Lisinopril [Prinivil] 5 mg PO HS 01/06/19 01/27/19 Unknown History Amiodarone [Cordarone 200 MG TAB] 200 mg PO QDAY #30 tablet 01/14/19 01/27/19 Unknown Rx Pantoprazole [Protonix TAB] 40 mg PO QDAY #30 tablet 01/14/19 01/27/19 Unknown Rx dilTIAZem CD [Cardizem CD] 180 mg PO QDAY #30 capsule 01/14/19 01/27/19 Unknown Rx Aspirin EC [Aspirin Enteric Coated 81 mg PO QDAY 01/27/19 01/27/19 Unknown History TAB] Active Meds: Active Medications Amiodarone HCl (Cordarone) 200 mg PO QDAY [facility]ONI Last Admin: 01/28/19 09:33 Dose: 200 mg Documented by: Aspirin (Halfprin Ec) 81 mg PO QDAY [facility] Last Admin: 01/28/19 09:33 Dose: 81 mg Documented by: Ferrous Sulfate (Feosol) 325 mg PO DAILY [facility] Last Admin: 01/28/19 09:33 Dose: 325 mg Documented by: Sodium Chloride (Nacl 0.9% 1000 Ml) 1,000 mls @ 75 mls/hr IV DIRECT [facility] Last Admin: 01/28/19 07:31 Dose: 75 mls/hr Documented by: Ibuprofen (Motrin) 200 mg PO Q6H PRN PRN Reason: pain Last Admin: 01/28/19 04:31 Dose: 200 mg Documented by: Levothyroxine Sodium (Synthroid) 112 mcg PO DAILY@0600 [facility] Last Admin: 01/28/19 06:39 Dose: 112 mcg Documented by: Lisinopril (Zestril) 5 mg PO HS [facility] Miscellaneous Medication (Eszopiclone [Eszopiclone]) 3 mg PO HS [facility] Pantoprazole Sodium (Protonix) 40 mg PO QDAY [facility] Last Admin: 01/28/19 09:33 Dose: 40 mg Documented by: Physical Examination Vital Signs Pulse Resp BP Pulse Ox 129 H 31 H 103/58 96 01/27/19 10:00 01/27/19 10:00 01/27/19 10:00 01/27/19 10:00 General appearance: no acute distress HEENT: Positive: PERRL Neck: Positive: trachea midline Cardiac: Positive: Irregularly Regular Lungs: Positive: Decreased Breath Sounds, Rhonchi Neuro: Positive: Grossly Intact Extremities: Absent: edema Results 01/27/19 10:23 01/27/19 10:19 Cardiac Enzymes 01/27/19 Range/Units 10: AST 23 (5-40) units/L Comprehensive Metabolic Panel 01/27/19 Range/Units 10:19 Sodium 130 L (137-145) mmol/L Potassium 4.3 (3.6-5.0) mmol/L Chloride 93.6 L (98-107) mmol/L Carbon Dioxide 25 (22-30) mmol/L BUN 21 H (9-20) mg/dL Creatinine 0.7 L (0.8-1.5) mg/dL Glucose 98 (75-100) mg/dL Calcium 7.6 L (8.4-10.2) mg/dL AST 23 (5-40) units/L ALT 20 (7-56) units/L Alkaline Phosphatase 111 (35-129) units/L Total Protein 5.9 L (6.3-8.2) g/dL Albumin 1.9 L (3.9-5) g/dL Assessment and Plan Generalized pain -chief complaint Atrial fibrillation Recent GI bleed recent EGD workup revealed gastric ulcer Hypothyroidism Hyponatremia Elevated liver transaminase Chronic lung disease Tobacco abuse Ascending thoracic aorta aneurysm measuring 5cm An echocardiogram 12/2018 reveal moderate aortic valve calcification with moderate to severe aortic stenosis. Left ventricular systolic function is normal, EF 60%. Small fixed apical wall defect, no reversible ischemia on MPI done 01/2018.
[2019-01-28] MEDS ORDERED: PERCOCET 5/325 PO ONE ×2 (10:44→14:00)
[2019-01-28] MEDS: LOPRESSOR PO SCH ×2 (13:29→21:01)
--- NOTE | 2019-01-28 14:20 | Vascular Lab Report ---
PROCEDURE: VL VENOUS DUPLEX LE BILAT TECHNIQUE: Duplex Doppler sonography of the BILATERAL lower extremities. Canseco scale imaging with and without compression, spectral waveform analysis with and without augmentation, and color flow Dopple r were employed. HISTORY: leg swelling COMPARISONS: None FINDINGS: RIGHT lower EXTREMITY: Deep Venous Thrombus: None Superficial Venous Thrombus: None Venous valvular incompetence: None Soft tissue abnormality: Large hypoechoic fluid collection extending from the right popliteal fossa to the ankle, measuring greater than 20 cm in length. No internal flow on Doppler imaging. LEFT LOWER EXTREMITY: Deep Venous Thrombus: None Superficial Venous Thrombus: None Venous valvular incompetence: None Soft tissue abnormality: Large hypoechoic fluid collection extending from the left popliteal fossa t o the ankle, measuring greater than 10 cm in length. No internal flow on color Doppler imaging IMPRESSION: No evidence of deep venous thrombosis in the bilateral lower extremities. Hypoechoic fluid collections in the bilateral calves. Differential diagnosis includes hematomas or ru ptured popliteal cysts. HISTORY: leg swelling COMPARISONS: FINDINGS: IMPRESSION: . This document is electronically signed by Latha Joseph MD., January 28 2019 02:17:47 PM ET
--- NOTE | 2019-01-28 14:45 | Vascular Lab Report ---
PROCEDURE: VL ARTERIAL DUPLEX LE BILAT TECHNIQUE: Sheikh scale, color and pulsed Doppler ultrasound with color flow and spectral analysis eval uation of both lower extremities arteries were performed. Pulse volume recordings and brachial indices obtained. HISTORY: left leg pain COMPARISONS: None currently available. FINDINGS: RIGHT EXTREMITY: Proximal DISPATCHER RELAY, distal DISPATCHER RELAY, proximal SFA, DFA, mid SFA, distal SFA, popliteal, PATIENT MONITOR, and DIMPLE velocities in cm/sec: 98, 81, 108, 86, 89, 121, 94, 26, and 36. Triphasic and biphasic flow throughout. LEFT EXTREMITY: Proximal DISPATCHER RELAY, distal DISPATCHER RELAY, proximal SFA, DFA, mid SFA, distal SFA, popliteal, PATIENT MONITOR, and DIMPLE velocities in cm/sec: 128, 117, 72, 135, 63, 54, 517, 35, and 19. Monophasic flow in the DIMPLE and PATIENT MONITOR. Otherwise triphasic and biphasic flow elsewhere. IMPRESSION: * Right PATIENT MONITOR and DIMPLE images and velocities are mislabeled as left on the study. * Greater than 75% stenosis at the left DIMPLE and hemodynamically significant stenosis in the left PATIENT MONITOR . This document is electronically signed by Del Henson MD., January 28 2019 02:42:46 PM ET
--- NOTE | 2019-01-28 14:57 | Consultation ---
History of Present Illness - Reason for Consult Consult date: 01/28/19 bilateral lower extremity swelling - History of Present Illness Patient with a history of new onset A. fib and bilateral lower extremity swelling. Venous ultrasound was performed which demonstrates no evidence of DVT. An arterial ultrasound demonstrates stenosis of the left popliteal artery. Patient has bilateral lower extremity swelling causing him pain. He has not yet undergone a venous ultrasound with reflux. Medications and Allergies Allergies Allergy/AdvReac Type Severity Reaction Status Date / Time pregabalin [From Lyrica] AdvReac Unknown Verified 01/05/19 21:43 Home Medications Medication Instructions Recorded Confirmed Last Taken Type Eszopiclone 3 mg PO HS 01/06/19 01/27/19 Unknown History Ferrous Sulfate [Iron 325 MG] 325 mg PO DAILY 01/06/19 01/27/19 Unknown History Ibuprofen 200 mg PO Q6HR PRN 01/06/19 01/27/19 Unknown History Levothyroxine [Synthroid] 112 mcg PO DAILY 01/06/19 01/27/19 Unknown History Lisinopril [Prinivil] 5 mg PO HS 01/06/19 01/27/19 Unknown History Amiodarone [Cordarone 200 MG TAB] 200 mg PO QDAY #30 tablet 01/14/19 01/27/19 Unknown Rx Pantoprazole [Protonix TAB] 40 mg PO QDAY #30 tablet 01/14/19 01/27/19 Unknown Rx dilTIAZem CD [Cardizem CD] 180 mg PO QDAY #30 capsule 01/14/19 01/27/19 Unknown Rx Aspirin EC [Aspirin Enteric Coated 81 mg PO QDAY 01/27/19 01/27/19 Unknown History TAB] Active Meds: Active Medications Aspirin (Halfprin Ec) 81 mg PO QDAY [facility] Last Admin: 01/28/19 09:33 Dose: 81 mg Documented by: Ferrous Sulfate (Feosol) 325 mg PO DAILY [facility] Last Admin: 01/28/19 09:33 Dose: 325 mg Documented by: Sodium Chloride (Nacl 0.9% 1000 Ml) 1,000 mls @ 75 mls/hr IV DIRECT [facility] Last Admin: 01/28/19 07:31 Dose: 75 mls/hr Documented by: Levothyroxine Sodium (Synthroid) 112 mcg PO DAILY@0600 [facility] Last Admin: 01/28/19 06:39 Dose: 112 mcg Documented by: Lisinopril (Zestril) 5 mg PO HS [facility] Metoprolol Tartrate (Lopressor) 25 mg PO Q8H [facility] Last Admin: 01/28/19 13:29 Dose: 25 mg Documented by: Miscellaneous Medication (Eszopiclone [Eszopiclone]) 3 mg PO HS [facility] Pantoprazole Sodium (Protonix) 40 mg PO QDAY [facility] Last Admin: 01/28/19 09:33 Dose: 40 mg Documented by: Review of Systems All systems: negative Exam - Constitutional Vitals: Temp Pulse Resp BP Pulse Ox 97.2 F L 130 H 16 101/53 97 01/28/19 09:27 01/28/19 12:00 01/28/19 10:00 01/28/19 09:27 01/28/19 10:00 General appearance: Present: no acute distress - EENT Eyes: Present: EOM intact ENT: hearing intact - Neck Neck: Present: supple, normal ROM - Respiratory Respiratory effort: normal - Extremities Extremity abnormal: edema - Abdominal General gastrointestinal: Present: deferred Male genitourinary: Present: deferred - Rectal Rectal Exam: deferred - Psychiatric Psychiatric: appropriate mood/affect, cooperative Results - Labs CBC & Chem 7: 01/27/19 10:23 01/27/19 10:19 Labs: Abnormal lab results 01/28/19 01/28/19 01/28/19 Range/Units 07:06 07:06 07:06 Iron 7 L (49-181) ug/dL TIBC 92 L (250-450) mcg/dL Transferrin 89 L (180-329) mg/dl Vitamin B12 1887 H (211-911) pg/mL TSH 8.080 H (0.270-4.200) mlU/mL - Imaging and Cardiology Venous US: report reviewed, image reviewed Assessment and Plan The patient has bilateral lower extremity swelling. Additionally, the patient has had extensive surgical repairs to his knees. Ultrasound demonstrates no evidence of DVT however, the patient has bilateral ruptured Ceballos's cyst. We'll consult orthopedic surgery for further evaluation. We'll evaluate patient for venous option with reflux for venous insufficiency which may be contributing to his leg swelling however, optimizing the patient's cardiac output may be most beneficial in reducing his fluid retention.
--- NOTE | 2019-01-28 18:01 | Progress Note ---
Assessment and Plan Assessment and plan: dmitri is a 78 yo man with a history of afib, hypertension, asthma, hypothyroid, recent GIB with Gastric ulcer s/p endoclip repair who present with left leg pains and palpitations -Left leg pain: per Vascular/IR audit consultant: "The patient has bilateral lower extremity swelling. Additionally, the patient has had extensive surgical repairs to his knees. Ultrasound demonstrates no evidence of DVT however, the patient has bilateral ruptured Ceballos's cyst. We'll consult orthopedic surgery for further evaluation. We'll evaluate patient for venous option with reflux for venous insufficiency which may be contributing to his leg swelling however, optimizing the patient's cardiac output may be most beneficial in reducing his fluid retention." -Atrial fibrillation with RVR consulted and spoke with Cardiology -Hypotension: d/w cardiology, low dose cardizem drip, improving rate will improve bp -HTN (hypertension) low salt diet -Hypothyroidism, uncontrolled: adjust synthroid -GERD (gastroesophageal reflux disease) On PPI's -Anemia, acute on chronic GI bleed recently, no a/c -DVT prophylaxis: On Lovenox and GI prophylaxis History Interval history: Patient was seen and examined. Follow-up on current diagnosis of afib with rvr and left leg pains. Overnight uneventful. Patient denies any chest pain, shortness breath, nausea/vomiting or severe headaches. Imaging, nursing note, chart, labs and old chart reviewed. Discussed with patient. Hospitalist Physical - Physical exam Narrative exam: Gen: WDWN, NAD, Awake, Alert, Orientated HEENT: NCAT, EOMI, PERRL, OP Clear Neck: supple, no adenopathy, no thyromegaly, no JVD CVS/Heart: irregular irregular normal S1S2, pulses present bilaterally Chest/Lungs: CTA B, Symmetrical chest expansion, good air entry bilaterally GI/Abdomen: soft, NTND, good bowel sounds, no guarding or rebound /Bladder: no suprapubic tenderness, no CVA or paraspinal tenderness Extermity/Skin: no c/c/e, no obvious rash MSK: FROM x 4 Neuro: CN 2-12 grossly intact, no new focal deficits Psych: calm - Constitutional Vitals: Temp Pulse Resp BP Pulse Ox 98.4 F 131 H 24 88/48 78 L 01/28/19 16:41 01/28/19 16:41 01/28/19 16:41 01/28/19 16:41 01/28/19 16:41 General appearance: Present: no acute distress Results - Labs CBC & Chem 7: 01/27/19 10:23 01/27/19 10:19 Labs: Laboratory Last Values WBC 11.9 K/mm3 (4.5-11.0) H 01/27/19 10:23 RBC 2.77 M/mm3 (3.65-5.03) L 01/27/19 10:23 Hgb 8.6 gm/dl (11.8-15.2) L 01/27/19 10:23 Hct 26.1 % (35.5-45.6) L 01/27/19 10:23 MCV 94 fl (84-94) 01/27/19 10:23 MCH 31 pg (28-32) 01/27/19 10:23 MCHC 33 % (32-34) 01/27/19 10:23 RDW 17.4 % (13.2-15.2) H 01/27/19 10:23 Plt Count 624 K/mm3 (140-440) H 01/27/19 10:23 Add Manual Diff Complete 01/27/19 10:23 Total Counted 100 01/27/19 10:23 Seg Neutrophils % Audio Visual Aids Director 01/27/19 10:23 Seg Neuts % (Manual) 90.0 % (40.0-70.0) H 01/27/19 10:23 Band Neutrophils % 0 % 01/27/19 10:23 Lymphocytes % (Manual) 7.0 % (13.4-35.0) L 01/27/19 10:23 Reactive Lymphs % (Man) 0 % 01/27/19 10:23 Monocytes % (Manual) 3.0 % (0.0-7.3) 01/27/19 10:23 Eosinophils % (Manual) 0 % (0.0-4.3) 01/27/19 10:23 Metamyelocytes % 0 % 01/27/19 10:23 Myelocytes % 0 % 01/27/19 10:23 Promyelocytes % 0 % 01/27/19 10:23 Blast Cells % 0 % 01/27/19 10:23 Nucleated RBC % Not Reportable 01/27/19 10:23 Seg Neutrophils # Man 10.7 K/mm3 (1.8-7.7) H 01/27/19 10:23 Band Neutrophils # 0.0 K/mm3 01/27/19 10:23 Lymphocytes # (Manual) 0.8 K/mm3 (1.2-5.4) L 01/27/19 10:23 Abs React Lymphs (Man) 0.0 K/mm3 01/27/19 10:23 Monocytes # (Manual) 0.4 K/mm3 (0.0-0.8) 01/27/19 10:23 Eosinophils # (Manual) 0.0 K/mm3 (0.0-0.4) 01/27/19 10:23 Basophils # (Manual) 0.0 K/mm3 (0.0-0.1) 01/27/19 10:23 Metamyelocytes # 0.0 K/mm3 01/27/19 10:23 Myelocytes # 0.0 K/mm3 01/27/19 10:23 Promyelocytes # 0.0 K/mm3 01/27/19 10:23 Blast Cells # 0.0 K/mm3 01/27/19 10:23 WBC Morphology Not Reportable 01/27/19 10:23 Hypersegmented Neuts Not Reportable 01/27/19 10:23 Hyposegmented Neuts Not Reportable 01/27/19 10:23 Hypogranular Neuts Not Reportable 01/27/19 10:23 Smudge Cells Not Reportable 01/27/19 10:23 Toxic Granulation Not Reportable 01/27/19 10:23 Toxic Vacuolation Not Reportable 01/27/19 10:23 Dohle Bodies Not Reportable 01/27/19 10:23 Pelger-Huet Anomaly Not Reportable 01/27/19 10:23 Eugenio Rods Not Reportable 01/27/19 10:23 Platelet Estimate Consistent w auto 01/27/19 10:23 Clumped Platelets Not Reportable 01/27/19 10:23 Plt Clumps, EDTA Not Reportable 01/27/19 10:23 Large Platelets Not Reportable 01/27/19 10:23 Giant Platelets Rare 01/27/19 10:23 Platelet Satelliting Not Reportable 01/27/19 10:23 Plt Morphology Comment Not Reportable 01/27/19 10:23 RBC Morphology Not Reportable 01/27/19 10:23 Dimorphic RBCs Not Reportable 01/27/19 10:23 Polychromasia Not Reportable 01/27/19 10:23 Hypochromasia Not Reportable 01/27/19 10:23 Poikilocytosis Few 01/27/19 10:23 Anisocytosis Few 01/27/19 10:23 Microcytosis Not Reportable 01/27/19 10:23 Macrocytosis Not Reportable 01/27/19 10:23 Spherocytes Not Reportable 01/27/19 10:23 Pappenheimer Bodies Not Reportable 01/27/19 10:23 Sickle Cells Not Reportable 01/27/19 10:23 Target Cells Not Reportable 01/27/19 10:23 Tear Drop Cells Not Reportable 01/27/19 10:23 Ovalocytes Not Reportable 01/27/19 10:23 Helmet Cells Not Reportable 01/27/19 10:[address] [place] Bodies Not Reportable 01/27/19 10:23 Fleming Rings Not Reportable 01/27/19 10:23 Jame Cells Not Reportable 01/27/19 10:23 Bite Cells Not Reportable 01/27/19 10:23 Crenated Cell Not Reportable 01/27/19 10:23 Elliptocytes Rare 01/27/19 10:23 Acanthocytes (Spur) Not Reportable 01/27/19 10:23 Rouleaux Not Reportable 01/27/19 10:23 Hemoglobin C Crystals Not Reportable 01/27/19 10:23 Schistocytes Not Reportable 01/27/19 10:23 Malaria parasites Not Reportable 01/27/19 10:23 Derick Bodies Not Reportable 01/27/19 10:23 Hem Pathologist Commnt No 01/27/19 10:23 Sodium 130 mmol/L (137-145) L 01/27/19 10:19 Potassium 4.3 mmol/L (3.6-5.0) 01/27/19 10:19 Chloride 93.6 mmol/L (98-107) L 01/27/19 10:19 Carbon Dioxide 25 mmol/L (22-30) 01/27/19 10:19 Anion Gap 16 mmol/L 01/27/19 10:19 BUN 21 mg/dL (9-20) H 01/27/19 10:19 Creatinine 0.7 mg/dL (0.8-1.5) L 01/27/19 10:19 Estimated GFR > 60 ml/min 01/27/19 10:19 BUN/Creatinine Ratio 30 % 01/27/19 10:19 Glucose 98 mg/dL (75-100) 01/27/19 10:19 Calcium 7.6 mg/dL (8.4-10.2) L 01/27/19 10:19 Iron 7 ug/dL (49-181) L 01/28/19 07:06 TIBC 92 mcg/dL (250-450) L 01/28/19 07:06 % Saturation 7.61 % 01/28/19 07:06 Transferrin 89 mg/dl (180-329) L 01/28/19 07:06 Total Bilirubin 0.40 mg/dL (0.1-1.2) 01/27/19 10:19 AST 23 units/L (5-40) 01/27/19 10:19 ALT 20 units/L (7-56) 01/27/19 10:19 Alkaline Phosphatase 111 units/L (35-129) 01/27/19 10:19 Troponin T < 0.010 ng/mL (0.00-0.029) 01/27/19 10:19 Total Protein 5.9 g/dL (6.3-8.2) L 01/27/19 10:19 Albumin 1.9 g/dL (3.9-5) L 01/27/19 10:19 Albumin/Globulin Ratio 0.5 % 01/27/19 10:19 Vitamin B12 1887 pg/mL (211-911) H 01/28/19 07:06 TSH 8.080 mlU/mL (0.270-4.200) H 01/28/19 07:06 Active Medications - Current Medications Current Medications: Generic Name Dose Route Start Last Admin Trade Name Freq PRN Reason Stop Dose Admin Aspirin 81 mg 01/28/19 10:00 01/28/19 09:33 Halfprin Ec PO 81 mg QDAY JONI Administration Ferrous Sulfate 325 mg 01/28/19 10:00 01/28/19 09:33 Feosol PO 325 mg DAILY JONI Administration Sodium Chloride 1,000 mls @ 75 mls/hr 01/27/19 19:00 01/28/19 07:31 Nacl 0.9% 1000 Ml IV 75 mls/hr DIRECT JONI Administration Levothyroxine Sodium 112 mcg 01/28/19 06:00 01/28/19 06:39 Synthroid PO 112 mcg DAILY@0600 JONI Administration Lisinopril 5 mg 01/28/19 22:00 Zestril PO HS JONI Metoprolol Tartrate 25 mg 01/28/19 12:00 01/28/19 13:29 Lopressor PO 25 mg Q8H JONI Administration Miscellaneous Medication 3 mg 01/28/19 22:00 Eszopiclone [Eszopiclone] PO HS JONI Pantoprazole Sodium 40 mg 01/28/19 10:00 01/28/19 09:33 Protonix PO 40 mg QDAY JONI Administration Nutrition/Malnutrition Assess - Dietary Evaluation Nutrition/Malnutrition Findings: Nutrition Notes Start: 01/28/19 15:47 Freq: Status: Active Protocol: Document 01/28/19 15:47 OL (Rec: 01/28/19 15:49 OL [id number]) Nutrition Notes Need for Assessment generated from: human service specialist Initial or Follow up Brief Note Current Diet cardiac Labs/Tests Na 130 BUN 21 Cr 0.7 Ca 7.6 Albumin 1.9 Pertinent Medications Reviewed Height 5 ft 11 in Weight 87 kg [place] Body Weight (kg) 78.18 BMI 26.7 Subjective/Other Information RD screen for skin risk. Silvano 14. Pt. with low iron labs. Pt. out of room for procedure at time of visit. Pt . admitted with LE edema. Nutrition Intervention Anticipated Discharge Needs: Unable to determine at this time Follow-Up By: 01/29/19 Additional Comments f/u: assessment needs
[2019-01-28] MEDS ORDERED: ESZOPICLONE 3 MG PO SCH (22:00)
[2019-01-28] MEDS ORDERED: ZESTRIL PO SCH (22:00)
[2019-01-29] MEDS ORDERED: ULTRAM PO ONE (00:10)
[2019-01-29] MEDS: HABITROL TD SCH (00:38)
[2019-01-29] MEDS: LOPRESSOR PO SCH ×4 (04:57→21:17)
[2019-01-29 05:35] LABS: Hematocrit 25.8 % (35.5-45.6); Hemoglobin 8.4 gm/dl (11.8-15.2); Mean Corpuscular HGB Conc 32 % (32-34); Mean Corpuscular Volume 96 fl (84-94); Platelet Count 567 K/mm3 (140-440); Red Cell Distribution Width 18.2 % (13.2-15.2)
[2019-01-29] MEDS: SYNTHROID PO SCH (05:58)
[2019-01-29 06:00] LABS: BUN/Creatinine Ratio 27; Blood Urea Nitrogen 24 mg/dL (9-20); Calcium 7.7 mg/dL (8.4-10.2); Hemolysis Index 7
[2019-01-29] MEDS ORDERED: CORDARONE 150 MG in D5W 100 ML IV ONE (09:30)
[2019-01-29] MEDS: NACL 0.9% 1000 ML 1,000 ML IV SCH (09:34)
[2019-01-29] MEDS: HALFPRIN EC PO SCH (09:37)
[2019-01-29] MEDS: PROTONIX PO SCH (09:37)
[2019-01-29] MEDS: FEOSOL PO SCH (09:41)
--- NOTE | 2019-01-29 09:57 | XRay Report ---
BILATERAL KNEES, 2 VIEWS History: Knee pain. Findings: Osteopenia is noted bilaterally. Bilateral knee replacements are in place. 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 There is no evidence for lucency surrounding hardware to suggest loosening or infection. No obvious fracture or bone lesion. There are diffuse vascular calcifications in both lower extremities consistent with peripheral vascular disease or diabetes. No large joint effusions are appreciated. Impression: Osteopenia. Bilateral knee replacements appear intact with no obvious acute abnormality.
--- NOTE | 2019-01-29 10:01 | Progress Note ---
Assessment and Plan Generalized pain -chief complaint Atrial fibrillation, persists patient is not a candidate for oral anticoagulation Unilateral LE edema LE venous doppler reports no evidence of DVT Recent GI bleed recent EGD workup revealed gastric ulcer Chronic Anemia Hypothyroidism Hyponatremia Elevated liver transaminase Chronic lung disease Tobacco abuse Ascending thoracic aorta aneurysm measuring 5cm An echocardiogram 12/2018 reveal moderate aortic valve calcification with moderate to severe aortic stenosis. Left ventricular systolic function is normal, EF 60%. Small fixed apical wall defect, no reversible ischemia on MPI done 01/2018. Subjective Date of service: 01/29/19 Interval history: Patient is requesting pain medications. Rapid Afib on telemetry. PO meds held due to low normal BP. Objective Vital Signs Temp Pulse Resp BP Pulse Ox 01/29/19 08:03 98.1 F 131 H 20 97/57 93 01/29/19 03:43 98.4 F 123 H 20 124/61 81 L 01/29/19 00:30 125 H 18 105/64 01/28/19 23:05 99.7 F H 125 H 22 89/53 88 01/28/19 23:03 133 H 77/50 01/28/19 22:33 18 77/50 01/28/19 21:01 151 H 01/28/19 19:54 98.6 F 22 97/53 94 01/28/19 16:41 98.4 F 131 H 24 88/48 78 L 01/28/19 12:00 130 H 01/28/19 10:00 16 97 - Physical Examination General: No Apparent Distress HEENT: Positive: PERRL Neck: Positive: trachea midline Cardiac: Positive: irregularly irregular Lungs: Positive: Decreased Breath Sounds, Rhonchi Neuro: Positive: Grossly Intact, Weakness Extremities: Present: edema (unilateral) - Labs and Meds CBC 01/29/19 Range/Units 05:13 WBC 15.1 H (4.5-11.0) K/mm3 RBC 2.70 L (3.65-5.03) M/mm3 Hgb 8.4 L (11.8-15.2) gm/dl Hct 25.8 L (35.5-45.6) % Plt Count 567 H (140-440) K/mm3 Comprehensive Metabolic Panel 01/29/19 Range/Units 05:13 Sodium 130 L (137-145) mmol/L Potassium 4.6 (3.6-5.0) mmol/L Chloride 96.6 L (98-107) mmol/L Carbon Dioxide 24 (22-30) mmol/L BUN 24 H (9-20) mg/dL Creatinine 0.9 (0.8-1.5) mg/dL Glucose 99 (75-100) mg/dL Calcium 7.7 L (8.4-10.2) mg/dL
[2019-01-29] MEDS ORDERED: LOPRESSOR IV PRN (12:51)
--- NOTE | 2019-01-29 13:26 | Progress Note ---
Assessment and Plan Assessment and plan: dmitri is a 78 yo man with a history of afib, hypertension, asthma, hypothyroid, recent GIB with Gastric ulcer s/p endoclip repair who present with left leg pains and palpitations -Left leg pain: per Vascular/IR health consultant: "The patient has bilateral lower extremity swelling. Additionally, the patient has had extensive surgical repairs to his knees. Ultrasound demonstrates no evidence of DVT however, the patient has bilateral ruptured Ceballos's cyst. We'll consult orthopedic surgery for further evaluation. We'll evaluate patient for venous option with reflux for venous insufficiency which may be contributing to his leg swelling however, optimizing the patient's cardiac output may be most beneficial in reducing his fluid retention." -Atrial fibrillation with RVR : Cardiology following -Hypotension: d/w cardiology, low dose cardizem drip, improving rate will improve bp -HTN (hypertension) low salt diet -Hypothyroidism, uncontrolled: adjust synthroid -GERD (gastroesophageal reflux disease) On PPI's -Anemia, acute on chronic GI bleed recently, no a/c -DVT prophylaxis: On Lovenox and GI prophylaxis I gave a stat bolus dose on 150mg iv Amiodarone x 1. Despite patient bp being low he still wants narcotics despite counseling on risk of worsening hypotension with narcotics. He has chronic neck pains. He reports taking 7 tabs of percocet 7.5mg per day. He goes to pain specialist. Neck pains: get xr c spine CCT 32 minutes History Interval history: Patient was seen and examined. Follow-up on current diagnosis of afib with rvr and left leg pains. Overnight uneventful. Patient denies any chest pain, shortness breath, nausea/vomiting or severe headaches. Imaging, nursing note, chart, labs and old chart reviewed. Discussed with patient. Hospitalist Physical - Physical exam Narrative exam: Gen: WDWN, NAD, Awake, Alert, Orientated HEENT: NCAT, EOMI, PERRL, OP Clear Neck: supple, no adenopathy, no thyromegaly, no JVD CVS/Heart: irregular irregular normal S1S2, pulses present bilaterally Chest/Lungs: CTA B, Symmetrical chest expansion, good air entry bilaterally GI/Abdomen: soft, NTND, good bowel sounds, no guarding or rebound /Bladder: no suprapubic tenderness, no CVA or paraspinal tenderness Extermity/Skin: no c/c/e, no obvious rash MSK: FROM x 4 Neuro: CN 2-12 grossly intact, no new focal deficits Psych: calm - Constitutional Vitals: Temp Pulse Resp BP Pulse Ox 98.4 F 80 18 112/64 93 01/29/19 11:49 01/29/19 12:53 01/29/19 11:49 01/29/19 12:53 01/29/19 11:49 General appearance: Present: no acute distress Results - Labs CBC & Chem 7: 01/29/19 05:13 01/29/19 05:13 Labs: Laboratory Last Values WBC 15.1 K/mm3 (4.5-11.0) H 01/29/19 05:13 RBC 2.70 M/mm3 (3.65-5.03) L 01/29/19 05:13 Hgb 8.4 gm/dl (11.8-15.2) L 01/29/19 05:13 Hct 25.8 % (35.5-45.6) L 01/29/19 05:13 MCV 96 fl (84-94) H 01/29/19 05:13 MCH 31 pg (28-32) 01/29/19 05:13 MCHC 32 % (32-34) 01/29/19 05:13 RDW 18.2 % (13.2-15.2) H 01/29/19 05:13 Plt Count 567 K/mm3 (140-440) H 01/29/19 05:13 Add Manual Diff Complete 01/27/19 10:23 Total Counted 100 01/27/19 10:23 Seg Neutrophils % [employer] Counter Person 01/27/19 10:23 Seg Neuts % (Manual) 90.0 % (40.0-70.0) H 01/27/19 10:23 Band Neutrophils % 0 % 01/27/19 10:23 Lymphocytes % (Manual) 7.0 % (13.4-35.0) L 01/27/19 10:23 Reactive Lymphs % (Man) 0 % 01/27/19 10:23 Monocytes % (Manual) 3.0 % (0.0-7.3) 01/27/19 10:23 Eosinophils % (Manual) 0 % (0.0-4.3) 01/27/19 10:23 Metamyelocytes % 0 % 01/27/19 10:23 Myelocytes % 0 % 01/27/19 10:23 Promyelocytes % 0 % 01/27/19 10:23 Blast Cells % 0 % 01/27/19 10:23 Nucleated RBC % Not Reportable 01/27/19 10:23 Seg Neutrophils # Man 10.7 K/mm3 (1.8-7.7) H 01/27/19 10:23 Band Neutrophils # 0.0 K/mm3 01/27/19 10:23 Lymphocytes # (Manual) 0.8 K/mm3 (1.2-5.4) L 01/27/19 10:23 Abs React Lymphs (Man) 0.0 K/mm3 01/27/19 10:23 Monocytes # (Manual) 0.4 K/mm3 (0.0-0.8) 01/27/19 10:23 Eosinophils # (Manual) 0.0 K/mm3 (0.0-0.4) 01/27/19 10:23 Basophils # (Manual) 0.0 K/mm3 (0.0-0.1) 01/27/19 10:23 Metamyelocytes # 0.0 K/mm3 01/27/19 10:23 Myelocytes # 0.0 K/mm3 01/27/19 10:23 Promyelocytes # 0.0 K/mm3 01/27/19 10:23 Blast Cells # 0.0 K/mm3 01/27/19 10:23 WBC Morphology Not Reportable 01/27/19 10:23 Hypersegmented Neuts Not Reportable 01/27/19 10:23 Hyposegmented Neuts Not Reportable 01/27/19 10:23 Hypogranular Neuts Not Reportable 01/27/19 10:23 Smudge Cells Not Reportable 01/27/19 10:23 Toxic Granulation Not Reportable 01/27/19 10:23 Toxic Vacuolation Not Reportable 01/27/19 10:23 Dohle Bodies Not Reportable 01/27/19 10:23 Pelger-Huet Anomaly Not Reportable 01/27/19 10:23 Eugenio Rods Not Reportable 01/27/19 10:23 Platelet Estimate Consistent w auto 01/27/19 10:23 Clumped Platelets Not Reportable 01/27/19 10:23 Plt Clumps, EDTA Not Reportable 01/27/19 10:23 Large Platelets Not Reportable 01/27/19 10:23 Giant Platelets Rare 01/27/19 10:23 Platelet Satelliting Not Reportable 01/27/19 10:23 Plt Morphology Comment Not Reportable 01/27/19 10:23 RBC Morphology Not Reportable 01/27/19 10:23 Dimorphic RBCs Not Reportable 01/27/19 10:23 Polychromasia Not Reportable 01/27/19 10:23 Hypochromasia Not Reportable 01/27/19 10:23 Poikilocytosis Few 01/27/19 10:23 Anisocytosis Few 01/27/19 10:23 Microcytosis Not Reportable 01/27/19 10:23 Macrocytosis Not Reportable 01/27/19 10:23 Spherocytes Not Reportable 01/27/19 10:23 Pappenheimer Bodies Not Reportable 01/27/19 10:23 Sickle Cells Not Reportable 01/27/19 10:23 Target Cells Not Reportable 01/27/19 10:23 Tear Drop Cells Not Reportable 01/27/19 10:23 Ovalocytes Not Reportable 01/27/19 10:23 Helmet Cells Not Reportable 01/27/19 10:23 [place] Bodies Not Reportable 01/27/19 10:23 [place] Rings Not Reportable 01/27/19 10:23 [place] Cells Not Reportable 01/27/19 10:23 Bite Cells Not Reportable 01/27/19 10:23 Crenated Cell Not Reportable 01/27/19 10:23 Elliptocytes Rare 01/27/19 10:23 Acanthocytes (Spur) Not Reportable 01/27/19 10:23 Rouleaux Not Reportable 01/27/19 10:23 Hemoglobin C Crystals Not Reportable 01/27/19 10:23 Schistocytes Not Reportable 01/27/19 10:23 Malaria parasites Not Reportable 01/27/19 10:23 Derick Bodies Not Reportable 01/27/19 10:23 Hem Pathologist Commnt No 01/27/19 10:23 Sodium 130 mmol/L (137-145) L 01/29/19 05:13 Potassium 4.6 mmol/L (3.6-5.0) 01/29/19 05:13 Chloride 96.6 mmol/L (98-107) L 01/29/19 05:13 Carbon Dioxide 24 mmol/L (22-30) 01/29/19 05:13 Anion Gap 14 mmol/L 01/29/19 05:13 BUN 24 mg/dL (9-20) H 01/29/19 05:13 Creatinine 0.9 mg/dL (0.8-1.5) 01/29/19 05:13 Estimated GFR > 60 ml/min 01/29/19 05:13 BUN/Creatinine Ratio 27 % 01/29/19 05:13 Glucose 99 mg/dL (75-100) 01/29/19 05:13 Calcium 7.7 mg/dL (8.4-10.2) L 01/29/19 05:13 Magnesium 1.80 mg/dL (1.7-2.3) 01/29/19 05:13 Iron 7 ug/dL (49-181) L 01/28/19 07:06 TIBC 92 mcg/dL (250-450) L 01/28/19 07:06 % Saturation 7.61 % 01/28/19 07:06 Transferrin 89 mg/dl (180-329) L 01/28/19 07:06 Total Bilirubin 0.40 mg/dL (0.1-1.2) 01/27/19 10:19 AST 23 units/L (5-40) 01/27/19 10:19 ALT 20 units/L (7-56) 01/27/19 10:19 Alkaline Phosphatase 111 units/L (35-129) 01/27/19 10:19 Troponin T < 0.010 ng/mL (0.00-0.029) 01/27/19 10:19 Total Protein 5.9 g/dL (6.3-8.2) L 01/27/19 10:19 Albumin 1.9 g/dL (3.9-5) L 01/27/19 10:19 Albumin/Globulin Ratio 0.5 % 01/27/19 10:19 Vitamin B12 1887 pg/mL (211-911) H 01/28/19 07:06 TSH 8.080 mlU/mL (0.270-4.200) H 01/28/19 07:06 Active Medications - Current Medications Current Medications: Generic Name Dose Route Start Last Admin Trade Name Freq PRN Reason Stop Dose Admin Aspirin 81 mg 01/28/19 10:00 01/29/19 09:37 Halfprin Ec PO 81 mg QDAY JONI Administration Digoxin 0.25 mg 01/29/19 14:00 Lanoxin IV 01/29/19 20:01 Q6H JONI Digoxin 0.25 mg 01/30/19 10:00 Lanoxin PO DAILY@1700 JONI Ferrous Sulfate 325 mg 01/28/19 10:00 01/29/19 09:41 Feosol PO 325 mg DAILY JONI Administration Sodium Chloride 1,000 mls @ 75 mls/hr 01/27/19 19:00 01/29/19 09:34 Nacl 0.9% 1000 Ml IV 75 mls/hr DIRECT JONI Administration Amiodarone HCl 150 mg/ 100 mls @ 600 mls/hr 01/29/19 14:00 Dextrose IV 01/29/19 14:09 ONCE ONE Amiodarone HCl 900 mg/ 500 mls @ 33.333 mls/hr 01/29/19 14:00 Dextrose IV DIRECT JONI Protocol 1 MG/MIN Levothyroxine Sodium 112 mcg 01/28/19 06:00 01/29/19 05:58 Synthroid PO 112 mcg DAILY@0600 JONI Administration Metoprolol Tartrate 2.5 mg 01/29/19 12:51 Lopressor IV Q6HR PRN HR>130 Metoprolol Tartrate 50 mg 01/29/19 14:00 Lopressor PO Q8HR JONI Miscellaneous Medication 3 mg 01/28/19 22:00 Eszopiclone [Eszopiclone] PO HS JONI Nicotine 21 mg 01/29/19 00:23 01/29/19 00:38 Habitrol TD 21 mg Q24H JONI Administration Pantoprazole Sodium 40 mg 01/28/19 10:00 01/29/19 09:37 Protonix PO 40 mg QDAY JONI Administration Nutrition/Malnutrition Assess - Dietary Evaluation Nutrition/Malnutrition Findings: Nutrition Notes Start: 01/28/19 15:47 Freq: Status: Active Protocol: Document 01/28/19 15:47 OL (Rec: 01/28/19 15:49 OL [id number]) Nutrition Notes Need for Assessment generated from: nuclear medical tech Initial or Follow up Brief Note Current Diet cardiac Labs/Tests Na 130 BUN 21 Cr 0.7 Ca 7.6 Albumin 1.9 Pertinent Medications Reviewed Height 5 ft 11 in Weight 87 kg [place] Body Weight (kg) 78.18 BMI 26.7 Subjective/Other Information RD screen for skin risk. Silvano Hernandez. Pt. with low iron labs. Pt. out of room for procedure at time of visit. Pt . admitted with LE edema. Nutrition Intervention Anticipated Discharge Needs: Unable to determine at this time Follow-Up By: 01/29/19 Additional Comments f/u: assessment needs
[2019-01-29] MEDS ORDERED: CORDARONE 150 MG in D5W 97 ML IV ONE (14:00)
[2019-01-29] MEDS ORDERED: LOPRESSOR PO ONE (14:00)
[2019-01-29] MEDS ORDERED: CORDARONE 900 MG in D5W 482 ML IV SCH (14:00)
--- NOTE | 2019-01-29 14:53 | XRay Report ---
AP AND LATERAL CERVICAL SPINE: History: Neck pain. Osteopenia is evident. There is reversal of the normal cervical lordosis. Mild to moderate degenerative disc disease is identified at all levels. C4-5 appears to be the most affected level. 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 There is no evidence for bone lesion, displaced fracture or subluxation. The prevertebral soft tissues are within normal limits. IMPRESSION: Osteopenia. Reversal of the normal cervical lordosis which could be secondary to spasm or positioning. Cervical spondylosis. No acute process is detected.
[2019-01-29] MEDS: LANOXIN IV SCH ×2 (15:14→21:19)
[2019-01-29] MEDS: ROXICODONE PO PRN (21:20)
--- NOTE | 2019-01-29 21:49 | Vascular Lab Report ---
PROCEDURE: VL VENOUS DUPLEX LE BILAT HISTORY: venous ultrasound with reflux of BLE FINDINGS: Real-time ultrasound of the right leg and left leg was performed using grayscale and color Doppler images. These images demonstrate no evidence of deep venous times in the right left common femoral vein, supe rficial femoral vein, popliteal vein or posterior tibial vein. IMPRESSION: No DVT in either leg This document is electronically signed by Sami Iglesias MD., January 29 2019 09:47:24 PM ET
[2019-01-30] MEDS: HABITROL TD SCH (01:39)
[2019-01-30] MEDS: LOPRESSOR PO SCH ×2 (05:40→18:15)
[2019-01-30] MEDS: ROXICODONE PO PRN ×3 (05:41→18:15)
[2019-01-30] MEDS: SYNTHROID PO SCH (05:41)
[2019-01-30 06:48] LABS: Hematocrit 27.2 % (35.5-45.6); Hemoglobin 8.9 gm/dl (11.8-15.2); Mean Corpuscular HGB Conc 33 % (32-34); Mean Corpuscular Volume 95 fl (84-94); Platelet Count 561 K/mm3 (140-440); Red Blood Count 2.88 M/mm3 (3.65-5.03); Red Cell Distribution Width 18.3 % (13.2-15.2)
[2019-01-30 07:15] LABS: BUN/Creatinine Ratio 34; Blood Urea Nitrogen 27 mg/dL (9-20); Calcium 7.9 mg/dL (8.4-10.2); Hemolysis Index 2
--- NOTE | 2019-01-30 07:26 | Progress Note ---
Assessment and Plan Assessment and plan: Patient is a 78 yo man with a history of afib, hypertension, asthma, hypothyroid, recent GIB with Gastric ulcer s/p endoclip repair who present with left leg pains and palpitations -Left leg pain: per Vascular/IR erp consultant: "The patient has bilateral lower extremity swelling. Additionally, the patient has had extensive surgical repairs to his knees. Ultrasound demonstrates no evidence of DVT however, the patient has bilateral ruptured Ceballos's cyst. We'll consult orthopedic surgery for further evaluation. We'll evaluate patient for venous option with reflux for venous insufficiency which may be contributing to his leg swelling however, optimizing the patient's cardiac output may be most beneficial in reducing his fluid retention." -Neck pains, xray showing possible spasms: added flexeril prn -Atrial fibrillation with RVR: Cardiology following, treated with iv Amiodarone -Hypotension: monitor closely, cardiology following -HTN (hypertension) low salt diet -Hypothyroidism, uncontrolled: adjust synthroid -GERD (gastroesophageal reflux disease) On PPI's -Anemia, acute on chronic GI bleed recently, no a/c -DVT prophylaxis: On Lovenox and GI prophylaxis Patient has converted to SR, will stop iv Amiodarone drip and transition to oral amiodarone. D/W daughter, Amy, over the phone. Wants rehab, he is not walking I called and spoke with cell number, . 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 Disposition: Continue inpatient telemetry, await PT/ortho evaluation for possible Discharge History Interval history: Patient was seen and examined. Follow-up on current diagnosis of afib with rvr and left leg pains (resolved), neck pains better. Overnight uneventful. Patient denies any chest pain, shortness breath, nausea/vomiting or severe headaches. Imaging, nursing note, chart, labs and old chart reviewed. Discussed with patient. Hospitalist Physical - Physical exam Narrative exam: Gen: WDWN, NAD, Awake, Alert, Orientated HEENT: NCAT, EOMI, PERRL, OP Clear Neck: supple, no adenopathy, no thyromegaly, no JVD CVS/Heart: RRR, normal S1S2, pulses present bilaterally Chest/Lungs: CTA B, Symmetrical chest expansion, good air entry bilaterally GI/Abdomen: soft, NTND, good bowel sounds, no guarding or rebound /Bladder: no suprapubic tenderness, no CVA or paraspinal tenderness Extermity/Skin: no c/c/e, no obvious rash MSK: FROM x 4 Neuro: CN 2-12 grossly intact, no new focal deficits Psych: calm - Constitutional Vitals: Temp Pulse Resp BP Pulse Ox 97.8 F 110 H 20 106/60 91 01/30/19 04:12 01/30/19 05:40 01/30/19 05:41 01/30/19 05:40 01/30/19 05:00 General appearance: Present: no acute distress Results - Labs CBC & Chem 7: 01/30/19 06:35 01/30/19 06:35 Labs: Laboratory Last Values WBC 17.2 K/mm3 (4.5-11.0) H 01/30/19 06:35 RBC 2.88 M/mm3 (3.65-5.03) L 01/30/19 06:35 Hgb 8.9 gm/dl (11.8-15.2) L 01/30/19 06:35 Hct 27.2 % (35.5-45.6) L 01/30/19 06:35 MCV 95 fl (84-94) H 01/30/19 06:35 MCH 31 pg (28-32) 01/30/19 06:35 MCHC 33 % (32-34) 01/30/19 06:35 RDW 18.3 % (13.2-15.2) H 01/30/19 06:35 Plt Count 561 K/mm3 (140-440) H 01/30/19 06:35 Add Manual Diff Complete 01/27/19 10:23 Total Counted 100 01/27/19 10:23 Seg Neutrophils % [employer] 01/27/19 10:23 Seg Neuts % (Manual) 90.0 % (40.0-70.0) H 01/27/19 10:23 Band Neutrophils % 0 % 01/27/19 10:23 Lymphocytes % (Manual) 7.0 % (13.4-35.0) L 01/27/19 10:23 Reactive Lymphs % (Man) 0 % 01/27/19 10:23 Monocytes % (Manual) 3.0 % (0.0-7.3) 01/27/19 10:23 Eosinophils % (Manual) 0 % (0.0-4.3) 01/27/19 10:23 Metamyelocytes % 0 % 01/27/19 10:23 Myelocytes % 0 % 01/27/19 10:23 Promyelocytes % 0 % 01/27/19 10:23 Blast Cells % 0 % 01/27/19 10:23 Nucleated RBC % Not Reportable 01/27/19 10:23 Seg Neutrophils # Man 10.7 K/mm3 (1.8-7.7) H 01/27/19 10:23 Band Neutrophils # 0.0 K/mm3 01/27/19 10:23 Lymphocytes # (Manual) 0.8 K/mm3 (1.2-5.4) L 01/27/19 10:23 Abs React Lymphs (Man) 0.0 K/mm3 01/27/19 10:23 Monocytes # (Manual) 0.4 K/mm3 (0.0-0.8) 01/27/19 10:23 Eosinophils # (Manual) 0.0 K/mm3 (0.0-0.4) 01/27/19 10:23 Basophils # (Manual) 0.0 K/mm3 (0.0-0.1) 01/27/19 10:23 Metamyelocytes # 0.0 K/mm3 01/27/19 10:23 Myelocytes # 0.0 K/mm3 01/27/19 10:23 Promyelocytes # 0.0 K/mm3 01/27/19 10:23 Blast Cells # 0.0 K/mm3 01/27/19 10:23 WBC Morphology Not Reportable 01/27/19 10:23 Hypersegmented Neuts Not Reportable 01/27/19 10:23 Hyposegmented Neuts Not Reportable 01/27/19 10:23 Hypogranular Neuts Not Reportable 01/27/19 10:23 Smudge Cells Not Reportable 01/27/19 10:23 Toxic Granulation Not Reportable 01/27/19 10:23 Toxic Vacuolation Not Reportable 01/27/19 10:23 Dohle Bodies Not Reportable 01/27/19 10:23 Pelger-Huet Anomaly Not Reportable 01/27/19 10:23 Eugenio Rods Not Reportable 01/27/19 10:23 Platelet Estimate Consistent w auto 01/27/19 10:23 Clumped Platelets Not Reportable 01/27/19 10:23 Plt Clumps, EDTA Not Reportable 01/27/19 10:23 Large Platelets Not Reportable 01/27/19 10:23 Giant Platelets Rare 01/27/19 10:23 Platelet Satelliting Not Reportable 01/27/19 10:23 Plt Morphology Comment Not Reportable 01/27/19 10:23 RBC Morphology Not Reportable 01/27/19 10:23 Dimorphic RBCs Not Reportable 01/27/19 10:23 Polychromasia Not Reportable 01/27/19 10:23 Hypochromasia Not Reportable 01/27/19 10:23 Poikilocytosis Few 01/27/19 10:23 Anisocytosis Few 01/27/19 10:23 Microcytosis Not Reportable 01/27/19 10:23 Macrocytosis Not Reportable 01/27/19 10:23 Spherocytes Not Reportable 01/27/19 10:23 Pappenheimer Bodies Not Reportable 01/27/19 10:23 Sickle Cells Not Reportable 01/27/19 10:23 Target Cells Not Reportable 01/27/19 10:23 Tear Drop Cells Not Reportable 01/27/19 10:23 Ovalocytes Not Reportable 01/27/19 10:23 Helmet Cells Not Reportable 01/27/19 10:23 [place] Bodies Not Reportable 01/27/19 10:23 [place] Rings Not Reportable 01/27/19 10:23 Jame Cells Not Reportable 01/27/19 10:23 Bite Cells Not Reportable 01/27/19 10:23 Crenated Cell Not Reportable 01/27/19 10:23 Elliptocytes Rare 01/27/19 10:23 Acanthocytes (Spur) Not Reportable 01/27/19 10:23 Rouleaux Not Reportable 01/27/19 10:23 Hemoglobin C Crystals Not Reportable 01/27/19 10:23 Schistocytes Not Reportable 01/27/19 10:23 Malaria parasites Not Reportable 01/27/19 10:23 Derick Bodies Not Reportable 01/27/19 10:23 Hem Pathologist Commnt No 01/27/19 10:23 Sodium 129 mmol/L (137-145) L 01/30/19 06:35 Potassium 5.2 mmol/L (3.6-5.0) H 01/30/19 06:35 Chloride 94.6 mmol/L (98-107) L 01/30/19 06:35 Carbon Dioxide 25 mmol/L (22-30) 01/30/19 06:35 Anion Gap 15 mmol/L 01/30/19 06:35 BUN 27 mg/dL (9-20) H 01/30/19 06:35 Creatinine 0.8 mg/dL (0.8-1.5) 01/30/19 06:35 Estimated GFR > 60 ml/min 01/30/19 06:35 BUN/Creatinine Ratio 34 % 01/30/19 06:35 Glucose 117 mg/dL (75-100) H 01/30/19 06:35 Calcium 7.9 mg/dL (8.4-10.2) L 01/30/19 06:35 Magnesium 1.80 mg/dL (1.7-2.3) 01/29/19 05:13 Iron 7 ug/dL (49-181) L 01/28/19 07:06 TIBC 92 mcg/dL (250-450) L 01/28/19 07:06 % Saturation 7.61 % 01/28/19 07:06 Transferrin 89 mg/dl (180-329) L 01/28/19 07:06 Total Bilirubin 0.40 mg/dL (0.1-1.2) 01/27/19 10:19 AST 23 units/L (5-40) 01/27/19 10:19 ALT 20 units/L (7-56) 01/27/19 10:19 Alkaline Phosphatase 111 units/L (35-129) 01/27/19 10:19 Troponin T < 0.010 ng/mL (0.00-0.029) 01/27/19 10:19 Total Protein 5.9 g/dL (6.3-8.2) L 01/27/19 10:19 Albumin 1.9 g/dL (3.9-5) L 01/27/19 10:19 Albumin/Globulin Ratio 0.5 % 01/27/19 10:19 Vitamin B12 1887 pg/mL (211-911) H 01/28/19 07:06 TSH 8.080 mlU/mL (0.270-4.200) H 01/28/19 07:06 Active Medications - Current Medications Current Medications: Generic Name Dose Route Start Last Admin Trade Name Freq PRN Reason Stop Dose Admin Amiodarone HCl 200 mg 01/30/19 10:00 Cordarone PO QDAY JONI Aspirin 81 mg 01/28/19 10:00 01/29/19 09:37 Halfprin Ec PO 81 mg QDAY JONI Administration Cyclobenzaprine HCl 10 mg 01/30/19 07:23 Flexeril PO Q8H PRN Muscle Spasm Digoxin 0.25 mg 01/30/19 10:00 Lanoxin PO DAILY@1700 JONI Ferrous Sulfate 325 mg 01/28/19 10:00 01/29/19 09:41 Feosol PO 325 mg DAILY JONI Administration Amiodarone HCl 900 mg/ 500 mls @ 33.333 mls/hr 01/29/19 14:00 01/29/19 23:46 Dextrose IV 0.5 mg/min DIRECT JONI 16.667 mls/hr Titration Protocol 1 MG/MIN Levothyroxine Sodium 112 mcg 01/28/19 06:00 01/30/19 05:41 Synthroid PO 112 mcg DAILY@0600 [facility] Administration Metoprolol Tartrate 2.5 mg 01/29/19 12:51 Lopressor IV Q6HR PRN HR>130 Metoprolol Tartrate 50 mg 01/29/19 14:00 01/30/19 05:40 Lopressor PO 50 mg Q8HR JONI Administration Miscellaneous Medication 3 mg 01/28/19 22:00 Eszopiclone [Eszopiclone] PO HS JONI Nicotine 21 mg 01/29/19 00:23 01/30/19 01:39 Habitrol TD 21 mg Q24H JONI Administration Oxycodone HCl 10 mg 01/29/19 13:29 01/30/19 05:41 Roxicodone PO 10 mg Q6H PRN Administration Pain , Severe (7-10) Pantoprazole Sodium 40 mg 01/28/19 10:00 01/29/19 09:37 Protonix PO 40 mg QDAY JONI Administration Nutrition/Malnutrition Assess - Dietary Evaluation Nutrition/Malnutrition Findings: Nutrition Notes Start: 01/28/19 15:47 Freq: Status: Active Protocol: Document 01/29/19 14:14 RM (Rec: 01/29/19 14:20 RM [id number]) Nutrition Notes Initial or Follow up Assessment Current Diagnosis Hypertension Other Pertinent Diagnosis L & R buttocks PUs, Hypothyroidism, LLE edema, GERD Current Diet cardiac Labs/Tests Reviewed Pertinent Medications Reviewed Height 5 ft 11 in Weight 90.6 kg [place] Body Weight (kg) 78.18 BMI 27.8 Subjective/Other Information Pt stated that his appetite is "so so" and he eats 50% of his meals. Percent of energy/protein needs met: 53%/38% #1 Nutrition Diagnosis Inadequate oral intake Etiology decreased appetite As Evidenced by Signs and Symptoms pt statement that he eats 50% of his meals Is patient on ventilator? No Is Patient Ambulatory and/or Out of Bed No REE-([facility]-confined to bed) 05 Calculation Used for Recommendations [facility] Additional Notes Protein Needs: 109-136g (1.2-1 .5g/kg) Fluid Needs: 1 ml/kcal Nutrition Intervention Change Diet Order: Continue current Add Supplement/Snack (indicate name/kcal Ensure Enlive Vanilla or /protein ) Chocolate BID Provides kCal: 700 Provides Protein (gm) 40 Goal #1 Meet at least 75% of calorie and protein needs via PO and ONS intakes Anticipated Discharge Needs: Cardiac diet Follow-Up By: 02/03/19 Additional Comments Follow for PO and ONS intakes
[2019-01-30] MEDS: FLEXERIL PO PRN (09:41)
[2019-01-30] MEDS: FEOSOL PO SCH (09:42)
[2019-01-30] MEDS: PROTONIX PO SCH (09:42)
[2019-01-30] MEDS: HALFPRIN EC PO SCH (09:42)
[2019-01-30] MEDS ORDERED: LANOXIN PO SCH (10:00)
[2019-01-30] MEDS ORDERED: CORDARONE PO SCH ×2 (10:00→12:00)
--- NOTE | 2019-01-30 11:18 | Progress Note ---
Assessment and Plan Generalized pain -chief complaint Atrial fibrillation reverted to sinus rhythm on amiodarone and digoxin patient is not a candidate for oral anticoagulation Unilateral LE edema LE venous doppler reports no evidence of DVT Recent GI bleed recent EGD workup revealed gastric ulcer Chronic Anemia Hypothyroidism Hyponatremia Elevated liver transaminase Chronic lung disease Tobacco abuse Ascending thoracic aorta aneurysm measuring 5cm An echocardiogram 12/2018 reveal moderate aortic valve calcification with moderate to severe aortic stenosis. Left ventricular systolic function is normal, EF 60%. Small fixed apical wall defect, no reversible ischemia on MPI done 01/2018. Continue medical therapy for paroxysmal atrial fibrillation. Patient has been considered not a candidate for oral anticoagulation therapy secondary to severe anemia and GI bleed. Subjective Date of service: 01/30/19 Interval history: Reverted to sinus rhythm on telemetry. Objective Vital Signs Temp Pulse Resp BP Pulse Ox 01/30/19 09:32 98.4 F 72 16 122/81 96 01/30/19 05:41 20 01/30/19 05:40 110 H 106/60 01/30/19 05:00 91 01/30/19 04:12 97.8 F 120 H 18 108/60 82 L 01/30/19 04:00 120 H 01/29/19 23:36 98.3 F 122 H 16 123/68 96 01/29/19 21:19 126 H 116/68 01/29/19 21:17 126 H 116/68 01/29/19 20:00 125 H 01/29/19 19:26 97.8 F 121 H 16 116/68 93 01/29/19 15:14 125 H 98/66 01/29/19 15:11 98.1 F 154 H 20 98/66 73 L 01/29/19 12:53 80 112/64 01/29/19 11:49 98.4 F 80 18 112/64 93 - Physical Examination General: No Apparent Distress HEENT: Positive: PERRL Neck: Positive: trachea midline Cardiac: Positive: Reg Rate and Rhythm Neuro: Positive: Grossly Intact, Weakness Extremities: Present: edema (unilateral) - Labs and Meds CBC 01/30/19 Range/Units 06:35 WBC 17.2 H (4.5-11.0) K/mm3 RBC 2.88 L (3.65-5.03) M/mm3 Hgb 8.9 L (11.8-15.2) gm/dl Hct 27.2 L (35.5-45.6) % Plt Count 561 H (140-440) K/mm3 Comprehensive Metabolic Panel 01/30/19 Range/Units 06:35 Sodium 129 L (137-145) mmol/L Potassium 5.2 H (3.6-5.0) mmol/L Chloride 94.6 L (98-107) mmol/L Carbon Dioxide 25 (22-30) mmol/L BUN 27 H (9-20) mg/dL Creatinine 0.8 (0.8-1.5) mg/dL Glucose 117 H (75-100) mg/dL Calcium 7.9 L (8.4-10.2) mg/dL
--- NOTE | 2019-01-30 11:52 | XRay Report ---
AP CHEST: HISTORY: Cough Bilateral lung opacities, right greater than left, appear stable since 01/27/19. This presumably represents chronic interstitial changes. No new consolidation, pleural effusion or pneumothorax. Heart size is at the upper limits of normal. IMPRESSION: No change.
[2019-01-30] MEDS ORDERED: LOPRESSOR PO SCH (12:00)
[2019-01-30] MEDS: ROCEPHIN/NS 2 GM/100 ML 2 GM/100 ML BAG IV SCH (14:44)
--- NOTE | 2019-01-30 16:21 | Consultation ---
History of Present Illness - [facility] Consult date: 01/30/19 Consult reason: other History of present illness: 78-year-old male with a history of osteoarthritis patient is status post bilateral total knee replacement patient was admitted on this occasion for bilateral leg pain along with" workup with ultrasound reveal bilateral ruptured popliteal cysts Medications and Allergies Allergies Allergy/AdvReac Type Severity Reaction Status Date / Time pregabalin [From Lyrica] AdvReac Unknown Verified 01/05/19 21:43 Home Medications Medication Instructions Recorded Confirmed Last Taken Type Eszopiclone 3 mg PO HS 01/06/19 01/27/19 Unknown History Ferrous Sulfate [Iron 325 MG] 325 mg PO DAILY 01/06/19 01/27/19 Unknown History Ibuprofen 200 mg PO Q6HR PRN 01/06/19 01/27/19 Unknown History Levothyroxine [Synthroid] 112 mcg PO DAILY 01/06/19 01/27/19 Unknown History Lisinopril [Prinivil] 5 mg PO HS 01/06/19 01/27/19 Unknown History Amiodarone [Cordarone 200 MG TAB] 200 mg PO QDAY #30 tablet 01/14/19 01/27/19 Unknown Rx Pantoprazole [Protonix TAB] 40 mg PO QDAY #30 tablet 01/14/19 01/27/19 Unknown Rx dilTIAZem CD [Cardizem CD] 180 mg PO QDAY #30 capsule 01/14/19 01/27/19 Unknown Rx Aspirin EC [Aspirin Enteric Coated 81 mg PO QDAY 01/27/19 01/27/19 Unknown History TAB] Active Meds: Active Medications Amiodarone HCl (Cordarone) 200 mg PO Q12HR [facility] Aspirin (Halfprin Ec) 81 mg PO QDAY [facility] Last Admin: 01/30/19 09:42 Dose: 81 mg Documented by: Cyclobenzaprine HCl (Flexeril) 10 mg PO Q8H PRN PRN Reason: Muscle Spasm Last Admin: 01/30/19 09:41 Dose: 10 mg Documented by: Ferrous Sulfate (Feosol) 325 mg PO DAILY [facility] Last Admin: 01/30/19 09:42 Dose: 325 mg Documented by: Ceftriaxone Sodium (Rocephin/Ns 2 Gm/100 Ml) 2 gm in 100 mls @ 200 mls/hr IV Q24H [facility]; Protocol Last Admin: 01/30/19 14:44 Dose: 200 mls/hr Documented by: Levothyroxine Sodium (Synthroid) 112 mcg PO DAILY@0600 [facility] Last Admin: 01/30/19 05:41 Dose: 112 mcg Documented by: Metoprolol Tartrate (Lopressor) 2.5 mg IV Q6HR PRN PRN Reason: HR>130 Metoprolol Tartrate (Lopressor) 50 mg PO Q12H [facility] Miscellaneous Medication (Eszopiclone [Eszopiclone]) 3 mg PO HS [facility] Nicotine (Habitrol) 21 mg TD Q24H [facility] Last Admin: 01/30/19 01:39 Dose: 21 mg Documented by: Oxycodone HCl (Roxicodone) 10 mg PO Q6H PRN PRN Reason: Pain , Severe (7-10) Last Admin: 01/30/19 11:30 Dose: 10 mg Documented by: Pantoprazole Sodium (Protonix) 40 mg PO QDAY [facility] Last Admin: 01/30/19 09:42 Dose: 40 mg Documented by: Physical Examination - Physical exam Narrative exam: Physical examination there is significant musculoskeletal findings related to the lower extremity. He was noted to have well-healed midline incisions over both knees there is some swelling noted particularly in the left calf region there is no overlying redness or erythema patient was tender on palpation no firm mass appreciated Assessment and Plan Popliteal cysts both lower extremities Recommendations- Based upon history and physical exam, recommend conservative therapy with PT, pain control and observation
[2019-01-30] MEDS: CORDARONE PO SCH (22:20)
[2019-01-31] MEDS: HABITROL TD SCH (00:45)
[2019-01-31] MEDS: LOPRESSOR PO SCH ×2 (05:32→17:59)
[2019-01-31] MEDS: SYNTHROID PO SCH (06:00)
[2019-01-31 06:28] LABS: Hematocrit 28.2 % (35.5-45.6); Hemoglobin 9.1 gm/dl (11.8-15.2); Mean Corpuscular HGB Conc 32 % (32-34); Mean Corpuscular Volume 95 fl (84-94); Platelet Count 502 K/mm3 (140-440); Red Blood Count 2.96 M/mm3 (3.65-5.03); Red Cell Distribution Width 19.3 % (13.2-15.2)
[2019-01-31 07:03] LABS: BUN/Creatinine Ratio 42; Blood Urea Nitrogen 25 mg/dL (9-20); Calcium 8.1 mg/dL (8.4-10.2); Hemolysis Index 4
[2019-01-31] MEDS: HALFPRIN EC PO SCH (10:00)
[2019-01-31] MEDS: CORDARONE PO SCH ×2 (10:00→21:37)
[2019-01-31] MEDS: FEOSOL PO SCH (10:00)
[2019-01-31] MEDS: PROTONIX PO SCH (10:00)
[2019-01-31] MEDS: ROXICODONE PO PRN (10:04)
[2019-01-31] MEDS: ROCEPHIN/NS 2 GM/100 ML 2 GM/100 ML BAG IV SCH (11:59)
--- NOTE | 2019-01-31 13:01 | Progress Note ---
Assessment and Plan Assessment and plan: Patient is a 78 yo man with a history of afib, hypertension, asthma, hypothyroid, recent GIB with Gastric ulcer s/p endoclip repair who present with left leg pains and palpitations -Left leg pain: per Vascular/IR solutions architect consultant: "The patient has bilateral lower extremity swelling. Additionally, the patient has had extensive surgical repairs to his knees. Ultrasound demonstrates no evidence of DVT however, the patient has bilateral ruptured Ceballos's cyst. We'll consult orthopedic surgery for further evaluation. We'll evaluate patient for venous option with reflux for venous insufficiency which may be contributing to his leg swelling however, optimizing the patient's cardiac output may be most beneficial in reducing his fluid retention." -Neck pains, xray showing possible spasms: added flexeril prn -Atrial fibrillation with RVR: Cardiology following, treated with iv Amiodarone -Hypotension: monitor closely, cardiology following -HTN (hypertension) low salt diet -Hypothyroidism, uncontrolled: adjust synthroid -GERD (gastroesophageal reflux disease) On PPI's -Anemia, acute on chronic GI bleed recently, no a/c -DVT prophylaxis: On Lovenox and GI prophylaxis -severe malnutrition, poa: Tooth Cutter Pinion Patient has converted to SR, will stop iv Amiodarone drip and transition to oral amiodarone. D/W daughter, Amy, over the phone. Wants rehab, he is not walking I called and spoke with cell number, . 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 Disposition: Continue inpatient telemetry, SNF placement History Interval history: Patient was seen and examined. Follow-up on current diagnosis of afib with rvr and left leg pains (resolved), neck pains better. Overnight uneventful. Patient denies any chest pain, shortness breath, nausea/vomiting or severe headaches. Imaging, nursing note, chart, labs and old chart reviewed. Discussed with patient. Hospitalist Physical - Physical exam Narrative exam: Gen: chronic disable with severe deconditioning, NAD, Awake, Orientated HEENT: NCAT, EOMI, PERRL, OP Clear Neck: supple, no adenopathy, no thyromegaly, no JVD CVS/Heart: RRR, normal S1S2, pulses present bilaterally Chest/Lungs: CTA B, Symmetrical chest expansion, good air entry bilaterally GI/Abdomen: soft, NTND, good bowel sounds, no guarding or rebound /Bladder: no suprapubic tenderness, no CVA or paraspinal tenderness Extermity/Skin: no c/c/e, no obvious rash MSK: FROM x 4 Neuro: CN 2-12 grossly intact, no new focal deficits Psych: calm - Constitutional Vitals: Temp Pulse Resp BP Pulse Ox 97.3 F L 69 18 101/51 98 01/31/19 11:45 01/31/19 04:21 01/31/19 11:45 01/31/19 11:45 01/31/19 10:00 General appearance: Present: no acute distress Results - Labs CBC & Chem 7: 01/31/19 05:32 01/31/19 05:32 Labs: Laboratory Last Values WBC 18.5 K/mm3 (4.5-11.0) H 01/31/19 05:32 RBC 2.96 M/mm3 (3.65-5.03) L 01/31/19 05:32 Hgb 9.1 gm/dl (11.8-15.2) L 01/31/19 05:32 Hct 28.2 % (35.5-45.6) L 01/31/19 05:32 MCV 95 fl (84-94) H 01/31/19 05:32 MCH 31 pg (28-32) 01/31/19 05:32 MCHC 32 % (32-34) 01/31/19 05:32 RDW 19.3 % (13.2-15.2) H 01/31/19 05:32 Plt Count 502 K/mm3 (140-440) H 01/31/19 05:32 Add Manual Diff Complete 01/27/19 10:23 Total Counted 100 01/27/19 10:23 Seg Neutrophils % Visual Design Lead 01/27/19 10:23 Seg Neuts % (Manual) 90.0 % (40.0-70.0) H 01/27/19 10:23 Band Neutrophils % 0 % 01/27/19 10:23 Lymphocytes % (Manual) 7.0 % (13.4-35.0) L 01/27/19 10:23 Reactive Lymphs % (Man) 0 % 01/27/19 10:23 Monocytes % (Manual) 3.0 % (0.0-7.3) 01/27/19 10:23 Eosinophils % (Manual) 0 % (0.0-4.3) 01/27/19 10:23 Metamyelocytes % 0 % 01/27/19 10:23 Myelocytes % 0 % 01/27/19 10:23 Promyelocytes % 0 % 01/27/19 10:23 Blast Cells % 0 % 01/27/19 10:23 Nucleated RBC % Not Reportable 01/27/19 10:23 Seg Neutrophils # Man 10.7 K/mm3 (1.8-7.7) H 01/27/19 10:23 Band Neutrophils # 0.0 K/mm3 01/27/19 10:23 Lymphocytes # (Manual) 0.8 K/mm3 (1.2-5.4) L 01/27/19 10:23 Abs React Lymphs (Man) 0.0 K/mm3 01/27/19 10:23 Monocytes # (Manual) 0.4 K/mm3 (0.0-0.8) 01/27/19 10:23 Eosinophils # (Manual) 0.0 K/mm3 (0.0-0.4) 01/27/19 10:23 Basophils # (Manual) 0.0 K/mm3 (0.0-0.1) 01/27/19 10:23 Metamyelocytes # 0.0 K/mm3 01/27/19 10:23 Myelocytes # 0.0 K/mm3 01/27/19 10:23 Promyelocytes # 0.0 K/mm3 01/27/19 10:23 Blast Cells # 0.0 K/mm3 01/27/19 10:23 WBC Morphology Not Reportable 01/27/19 10:23 Hypersegmented Neuts Not Reportable 01/27/19 10:23 Hyposegmented Neuts Not Reportable 01/27/19 10:23 Hypogranular Neuts Not Reportable 01/27/19 10:23 Smudge Cells Not Reportable 01/27/19 10:23 Toxic Granulation Not Reportable 01/27/19 10:23 Toxic Vacuolation Not Reportable 01/27/19 10:23 Dohle Bodies Not Reportable 01/27/19 10:23 Pelger-Huet Anomaly Not Reportable 01/27/19 10:23 Eugenio Rods Not Reportable 01/27/19 10:23 Platelet Estimate Consistent w auto 01/27/19 10:23 Clumped Platelets Not Reportable 01/27/19 10:23 Plt Clumps, EDTA Not Reportable 01/27/19 10:23 Large Platelets Not Reportable 01/27/19 10:23 Giant Platelets Rare 01/27/19 10:23 Platelet Satelliting Not Reportable 01/27/19 10:23 Plt Morphology Comment Not Reportable 01/27/19 10:23 RBC Morphology Not Reportable 01/27/19 10:23 Dimorphic RBCs Not Reportable 01/27/19 10:23 Polychromasia Not Reportable 01/27/19 10:23 Hypochromasia Not Reportable 01/27/19 10:23 Poikilocytosis Few 01/27/19 10:23 Anisocytosis Few 01/27/19 10:23 Microcytosis Not Reportable 01/27/19 10:23 Macrocytosis Not Reportable 01/27/19 10:23 Spherocytes Not Reportable 01/27/19 10:23 Pappenheimer Bodies Not Reportable 01/27/19 10:23 Sickle Cells Not Reportable 01/27/19 10:23 Target Cells Not Reportable 01/27/19 10:23 Tear Drop Cells Not Reportable 01/27/19 10:23 Ovalocytes Not Reportable 01/27/19 10:23 Helmet Cells Not Reportable 01/27/19 10:23 [place] Bodies Not Reportable 01/27/19 10:23 [place] Rings Not Reportable 01/27/19 10:23 Jame Cells Not Reportable 01/27/19 10:23 Bite Cells Not Reportable 01/27/19 10:23 Crenated Cell Not Reportable 01/27/19 10:23 Elliptocytes Rare 01/27/19 10:23 Acanthocytes (Spur) Not Reportable 01/27/19 10:23 Rouleaux Not Reportable 01/27/19 10:23 Hemoglobin C Crystals Not Reportable 01/27/19 10:23 Schistocytes Not Reportable 01/27/19 10:23 Malaria parasites Not Reportable 01/27/19 10:23 Derick Bodies Not Reportable 01/27/19 10:23 Hem Pathologist Commnt No 01/27/19 10:23 Sodium 133 mmol/L (137-145) L 01/31/19 05:32 Potassium 5.1 mmol/L (3.6-5.0) H 01/31/19 05:32 Chloride 98.3 mmol/L (98-107) 01/31/19 05:32 Carbon Dioxide 27 mmol/L (22-30) 01/31/19 05:32 Anion Gap 13 mmol/L 01/31/19 05:32 BUN 25 mg/dL (9-20) H 01/31/19 05:32 Creatinine 0.6 mg/dL (0.8-1.5) L 01/31/19 05:32 Estimated GFR > 60 ml/min 01/31/19 05:32 BUN/Creatinine Ratio 42 % 01/31/19 05:32 Glucose 88 mg/dL (75-100) 01/31/19 05:32 Calcium 8.1 mg/dL (8.4-10.2) L 01/31/19 05:32 Magnesium 1.80 mg/dL (1.7-2.3) 01/29/19 05:13 Iron 7 ug/dL (49-181) L 01/28/19 07:06 TIBC 92 mcg/dL (250-450) L 01/28/19 07:06 % Saturation 7.61 % 01/28/19 07:06 Transferrin 89 mg/dl (180-329) L 01/28/19 07:06 Total Bilirubin 0.40 mg/dL (0.1-1.2) 01/27/19 10:19 AST 23 units/L (5-40) 01/27/19 10:19 ALT 20 units/L (7-56) 01/27/19 10:19 Alkaline Phosphatase 111 units/L (35-129) 01/27/19 10:19 Troponin T < 0.010 ng/mL (0.00-0.029) 01/27/19 10:19 Total Protein 5.9 g/dL (6.3-8.2) L 01/27/19 10:19 Albumin 1.9 g/dL (3.9-5) L 01/27/19 10:19 Albumin/Globulin Ratio 0.5 % 01/27/19 10:19 Vitamin B12 1887 pg/mL (211-911) H 01/28/19 07:06 TSH 8.080 mlU/mL (0.270-4.200) H 01/28/19 07:06 Active Medications - Current Medications Current Medications: Generic Name Dose Route Start Last Admin Trade Name Freq PRN Reason Stop Dose Admin Amiodarone HCl 200 mg 01/30/19 22:00 01/31/19 10:00 Cordarone PO 200 mg Q12HR JONI Administration Aspirin 81 mg 01/28/19 10:00 01/31/19 10:00 Halfprin Ec PO 81 mg QDAY JONI Administration Cyclobenzaprine HCl 10 mg 01/30/19 08:30 01/30/19 09:41 Flexeril PO 10 mg Q8H PRN Administration Muscle Spasm Ferrous Sulfate 325 mg 01/28/19 10:00 01/31/19 10:00 Feosol PO 325 mg DAILY JONI Administration Ceftriaxone Sodium 2 gm in 100 mls @ 200 mls/hr 01/30/19 12:00 01/31/19 11:59 Rocephin/Ns 2 Gm/100 Ml IV 200 mls/hr Q24H JONI Administration Protocol Levothyroxine Sodium 112 mcg 01/28/19 06:00 01/31/19 06:00 Synthroid PO 112 mcg DAILY@0600 JONI Administration Metoprolol Tartrate 2.5 mg 01/29/19 12:51 Lopressor IV Q6HR PRN HR>130 Metoprolol Tartrate 50 mg 01/30/19 18:00 01/31/19 05:32 Lopressor PO Not Given Q12H JONI Miscellaneous Medication 3 mg 01/28/19 22:00 Eszopiclone [Eszopiclone] PO HS JONI Nicotine 21 mg 01/29/19 00:23 01/31/19 00:45 Habitrol TD 21 mg Q24H JONI Administration Oxycodone HCl 10 mg 01/29/19 13:29 01/31/19 10:04 Roxicodone PO 10 mg Q6H PRN Administration Pain , Severe (7-10) Pantoprazole Sodium 40 mg 01/28/19 10:00 01/31/19 10:00 Protonix PO 40 mg QDAY JONI Administration Nutrition/Malnutrition Assess - Dietary Evaluation Nutrition/Malnutrition Findings: Nutrition Notes Start: 01/28/19 15:47 Freq: Status: Active Protocol: Document 04/11/19 14:14 RM (Rec: 01/29/19 14:20 RM [id number]) Nutrition Notes Initial or Follow up Assessment Current Diagnosis Hypertension Other Pertinent Diagnosis L & R buttocks PUs, Hypothyroidism, LLE edema, GERD Current Diet cardiac Labs/Tests Reviewed Pertinent Medications Reviewed Height 5 ft 11 in Weight 90.6 kg [place] Body Weight (kg) 78.18 BMI 27.8 Subjective/Other Information Pt stated that his appetite is "so so" and he eats 50% of his meals. Percent of energy/protein needs met: 53%/38% #1 Nutrition Diagnosis Inadequate oral intake Etiology decreased appetite As Evidenced by Signs and Symptoms pt statement that he eats 50% of his meals Is patient on ventilator? No Is Patient Ambulatory and/or Out of Bed No REE-([facility]-confined to bed) 05 Calculation Used for Recommendations [facility] Additional Notes Protein Needs: 109-136g (1.2-1 .5g/kg) Fluid Needs: 1 ml/kcal Nutrition Intervention Change Diet Order: Continue current Add Supplement/Snack (indicate name/kcal Ensure Enlive Vanilla or /protein ) Chocolate BID Provides kCal: 700 Provides Protein (gm) 40 Goal #1 Meet at least 75% of calorie and protein needs via PO and ONS intakes Anticipated Discharge Needs: Cardiac diet Follow-Up By: 02/03/19 Additional Comments Follow for PO and ONS intakes
[2019-02-01] MEDS: HABITROL TD SCH ×2 (00:19→23:46)
[2019-02-01] MEDS: SYNTHROID PO SCH (06:04)
[2019-02-01] MEDS: LOPRESSOR PO SCH ×2 (06:04→21:29)
[2019-02-01] MEDS: CORDARONE PO SCH ×2 (10:03→21:50)
[2019-02-01] MEDS: HALFPRIN EC PO SCH (10:59)
[2019-02-01] MEDS: FEOSOL PO SCH (10:59)
[2019-02-01] MEDS: PROTONIX PO SCH (10:59)
[2019-02-01] MEDS: ROCEPHIN/NS 2 GM/100 ML 2 GM/100 ML BAG IV SCH (12:42)
--- NOTE | 2019-02-01 12:49 | Progress Note ---
Assessment and Plan Assessment and plan: Patient is a 78 yo man with a history of afib, hypertension, asthma, hypothyroid, recent GIB with Gastric ulcer s/p endoclip repair who present with left leg pains and palpitations -Left leg pain: per Vascular/IR virtualization consultant: "The patient has bilateral lower extremity swelling. Additionally, the patient has had extensive surgical repairs to his knees. Ultrasound demonstrates no evidence of DVT however, the patient has bilateral ruptured Ceballos's cyst. We'll consult orthopedic surgery for further evaluation. We'll evaluate patient for venous option with reflux for venous insufficiency which may be contributing to his leg swelling however, optimizing the patient's cardiac output may be most beneficial in reducing his fluid retention." -Neck pains, xray showing possible spasms: added flexeril prn -Atrial fibrillation with RVR: Cardiology following, treated with iv Amiodarone to Po -Hypotension: monitor closely, cardiology following -HTN (hypertension) low salt diet -Hypothyroidism, uncontrolled: adjust synthroid -GERD (gastroesophageal reflux disease) On PPI's -Anemia, acute on chronic GI bleed recently, no a/c -DVT prophylaxis: On Lovenox and GI prophylaxis -severe malnutrition, poa: Interchange Agent Patient has converted to SR, will stop iv Amiodarone drip and transition to oral amiodarone. D/W daughter, Amy, over the phone. Wants rehab, he is not walking I called and spoke with cell number, . 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 back in afib with RVR and hypotension, Cardiology to be notified Disposition: Continue inpatient telemetry, SNF placement History Interval history: Patient was seen and examined. Follow-up on current diagnosis of afib with rvr and left leg pains (resolved), neck pains better. Overnight uneventful. Patient denies any chest pain, shortness breath, nausea/vomiting or severe headaches. Imaging, nursing note, chart, labs and old chart reviewed. Discussed with patient. Hospitalist Physical - Physical exam Narrative exam: Gen: chronic disable with severe deconditioning, NAD, Awake, Orientated HEENT: NCAT, EOMI, PERRL, OP Clear Neck: supple, no adenopathy, no thyromegaly, no JVD CVS/Heart: irregular normal S1S2, pulses present bilaterally Chest/Lungs: CTA B, Symmetrical chest expansion, good air entry bilaterally GI/Abdomen: soft, NTND, good bowel sounds, no guarding or rebound /Bladder: no suprapubic tenderness, no CVA or paraspinal tenderness Extermity/Skin: no c/c/e, no obvious rash MSK: FROM x 4 Neuro: CN 2-12 grossly intact, no new focal deficits Psych: calm - Constitutional Vitals: Temp Pulse Resp BP Pulse Ox 97.6 F 67 18 99/47 96 01/31/19 16:27 02/01/19 06:04 01/31/19 16:27 02/01/19 06:04 02/01/19 10:00 General appearance: Present: no acute distress Results - Labs CBC & Chem 7: 01/31/19 05:32 01/31/19 05:32 Labs: Laboratory Last Values WBC 18.5 K/mm3 (4.5-11.0) H 01/31/19 05:32 RBC 2.96 M/mm3 (3.65-5.03) L 01/31/19 05:32 Hgb 9.1 gm/dl (11.8-15.2) L 01/31/19 05:32 Hct 28.2 % (35.5-45.6) L 01/31/19 05:32 MCV 95 fl (84-94) H 01/31/19 05:32 MCH 31 pg (28-32) 01/31/19 05:32 MCHC 32 % (32-34) 01/31/19 05:32 RDW 19.3 % (13.2-15.2) H 01/31/19 05:32 Plt Count 502 K/mm3 (140-440) H 01/31/19 05:32 Add Manual Diff Complete 01/27/19 10:23 Total Counted 100 01/27/19 10:23 Seg Neutrophils % Percher 01/27/19 10:23 Seg Neuts % (Manual) 90.0 % (40.0-70.0) H 01/27/19 10:23 Band Neutrophils % 0 % 01/27/19 10:23 Lymphocytes % (Manual) 7.0 % (13.4-35.0) L 01/27/19 10:23 Reactive Lymphs % (Man) 0 % 01/27/19 10:23 Monocytes % (Manual) 3.0 % (0.0-7.3) 01/27/19 10:23 Eosinophils % (Manual) 0 % (0.0-4.3) 01/27/19 10:23 Metamyelocytes % 0 % 01/27/19 10:23 Myelocytes % 0 % 01/27/19 10:23 Promyelocytes % 0 % 01/27/19 10:23 Blast Cells % 0 % 01/27/19 10:23 Nucleated RBC % Not Reportable 01/27/19 10:23 Seg Neutrophils # Man 10.7 K/mm3 (1.8-7.7) H 01/27/19 10:23 Band Neutrophils # 0.0 K/mm3 01/27/19 10:23 Lymphocytes # (Manual) 0.8 K/mm3 (1.2-5.4) L 01/27/19 10:23 Abs React Lymphs (Man) 0.0 K/mm3 01/27/19 10:23 Monocytes # (Manual) 0.4 K/mm3 (0.0-0.8) 01/27/19 10:23 Eosinophils # (Manual) 0.0 K/mm3 (0.0-0.4) 01/27/19 10:23 Basophils # (Manual) 0.0 K/mm3 (0.0-0.1) 01/27/19 10:23 Metamyelocytes # 0.0 K/mm3 01/27/19 10:23 Myelocytes # 0.0 K/mm3 01/27/19 10:23 Promyelocytes # 0.0 K/mm3 01/27/19 10:23 Blast Cells # 0.0 K/mm3 01/27/19 10:23 WBC Morphology Not Reportable 01/27/19 10:23 Hypersegmented Neuts Not Reportable 01/27/19 10:23 Hyposegmented Neuts Not Reportable 01/27/19 10:23 Hypogranular Neuts Not Reportable 01/27/19 10:23 Smudge Cells Not Reportable 01/27/19 10:23 Toxic Granulation Not Reportable 01/27/19 10:23 Toxic Vacuolation Not Reportable 01/27/19 10:23 Dohle Bodies Not Reportable 01/27/19 10:23 Pelger-Huet Anomaly Not Reportable 01/27/19 10:23 Eugenio Rods Not Reportable 01/27/19 10:23 Platelet Estimate Consistent w auto 01/27/19 10:23 Clumped Platelets Not Reportable 01/27/19 10:23 Plt Clumps, EDTA Not Reportable 01/27/19 10:23 Large Platelets Not Reportable 01/27/19 10:23 Giant Platelets Rare 01/27/19 10:23 Platelet Satelliting Not Reportable 01/27/19 10:23 Plt Morphology Comment Not Reportable 01/27/19 10:23 RBC Morphology Not Reportable 01/27/19 10:23 Dimorphic RBCs Not Reportable 01/27/19 10:23 Polychromasia Not Reportable 01/27/19 10:23 Hypochromasia Not Reportable 01/27/19 10:23 Poikilocytosis Few 01/27/19 10:23 Anisocytosis Few 01/27/19 10:23 Microcytosis Not Reportable 01/27/19 10:23 Macrocytosis Not Reportable 01/27/19 10:23 Spherocytes Not Reportable 01/27/19 10:23 Pappenheimer Bodies Not Reportable 01/27/19 10:23 Sickle Cells Not Reportable 01/27/19 10:23 Target Cells Not Reportable 01/27/19 10:23 Tear Drop Cells Not Reportable 01/27/19 10:23 Ovalocytes Not Reportable 01/27/19 10:23 Helmet Cells Not Reportable 01/27/19 10:23 [place] Bodies Not Reportable 01/27/19 10:23 [place] Rings Not Reportable 01/27/19 10:23 [place] Cells Not Reportable 01/27/19 10:23 Bite Cells Not Reportable 01/27/19 10:23 Crenated Cell Not Reportable 01/27/19 10:23 Elliptocytes Rare 01/27/19 10:23 Acanthocytes (Spur) Not Reportable 01/27/19 10:23 Rouleaux Not Reportable 01/27/19 10:23 Hemoglobin C Crystals Not Reportable 01/27/19 10:23 Schistocytes Not Reportable 01/27/19 10:23 Malaria parasites Not Reportable 01/27/19 10:23 Derick Bodies Not Reportable 01/27/19 10:23 Hem Pathologist Commnt No 01/27/19 10:23 Sodium 133 mmol/L (137-145) L 01/31/19 05:32 Potassium 5.1 mmol/L (3.6-5.0) H 01/31/19 05:32 Chloride 98.3 mmol/L (98-107) 01/31/19 05:32 Carbon Dioxide 27 mmol/L (22-30) 01/31/19 05:32 Anion Gap 13 mmol/L 01/31/19 05:32 BUN 25 mg/dL (9-20) H 01/31/19 05:32 Creatinine 0.6 mg/dL (0.8-1.5) L 01/31/19 05:32 Estimated GFR > 60 ml/min 01/31/19 05:32 BUN/Creatinine Ratio 42 % 01/31/19 05:32 Glucose 88 mg/dL (75-100) 01/31/19 05:32 Calcium 8.1 mg/dL (8.4-10.2) L 01/31/19 05:32 Magnesium 1.80 mg/dL (1.7-2.3) 01/29/19 05:13 Iron 7 ug/dL (49-181) L 01/28/19 07:06 TIBC 92 mcg/dL (250-450) L 01/28/19 07:06 % Saturation 7.61 % 01/28/19 07:06 Transferrin 89 mg/dl (180-329) L 01/28/19 07:06 Total Bilirubin 0.40 mg/dL (0.1-1.2) 01/27/19 10:19 AST 23 units/L (5-40) 01/27/19 10:19 ALT 20 units/L (7-56) 01/27/19 10:19 Alkaline Phosphatase 111 units/L (35-129) 01/27/19 10:19 Troponin T < 0.010 ng/mL (0.00-0.029) 01/27/19 10:19 Total Protein 5.9 g/dL (6.3-8.2) L 01/27/19 10:19 Albumin 1.9 g/dL (3.9-5) L 01/27/19 10:19 Albumin/Globulin Ratio 0.5 % 01/27/19 10:19 Vitamin B12 1887 pg/mL (211-911) H 01/28/19 07:06 TSH 8.080 mlU/mL (0.270-4.200) H 01/28/19 07:06 Active Medications - Current Medications Current Medications: Generic Name Dose Route Start Last Admin Trade Name Freq PRN Reason Stop Dose Admin Amiodarone HCl 200 mg 01/30/19 22:00 01/31/19 21:37 Cordarone PO 200 mg Q12HR JONI Administration Aspirin 81 mg 01/28/19 10:00 02/01/19 10:59 Halfprin Ec PO 81 mg QDAY JONI Administration Cyclobenzaprine HCl 10 mg 01/30/19 08:30 01/30/19 09:41 Flexeril PO 10 mg Q8H PRN Administration Muscle Spasm Ferrous Sulfate 325 mg 01/28/19 10:00 02/01/19 10:59 Feosol PO 325 mg DAILY JONI Administration Ceftriaxone Sodium 2 gm in 100 mls @ 200 mls/hr 01/30/19 12:00 01/31/19 11:59 Rocephin/Ns 2 Gm/100 Ml IV 200 mls/hr Q24H JONI Administration Protocol Levothyroxine Sodium 112 mcg 01/28/19 06:00 02/01/19 06:04 Synthroid PO 112 mcg DAILY@0600 JONI Administration Metoprolol Tartrate 2.5 mg 01/29/19 12:51 Lopressor IV Q6HR PRN HR>130 Metoprolol Tartrate 50 mg 01/30/19 18:00 02/01/19 06:04 Lopressor PO Not Given Q12H [facility] Miscellaneous Medication 3 mg 01/28/19 22:00 Eszopiclone [Eszopiclone] PO HS JONI Nicotine 21 mg 01/29/19 00:23 02/01/19 00:19 Habitrol TD 21 mg Q24H JONI Administration Oxycodone HCl 10 mg 01/29/19 13:29 01/31/19 10:04 Roxicodone PO 10 mg Q6H PRN Administration Pain , Severe (7-10) Pantoprazole Sodium 40 mg 01/28/19 10:00 02/01/19 10:59 Protonix PO 40 mg QDAY JONI Administration Nutrition/Malnutrition Assess - Dietary Evaluation Nutrition/Malnutrition Findings: Nutrition Notes Start: 01/28/19 15:47 Freq: Status: Active Protocol: Document 01/29/19 14:14 RM (Rec: 01/29/19 14:20 RM [id number]) Nutrition Notes Initial or Follow up Assessment Current Diagnosis Hypertension Other Pertinent Diagnosis L & R buttocks PUs, Hypothyroidism, LLE edema, GERD Current Diet cardiac Labs/Tests Reviewed Pertinent Medications Reviewed Height 5 ft 11 in Weight 90.6 kg [place] Body Weight (kg) 78.18 BMI 27.8 Subjective/Other Information Pt stated that his appetite is "so so" and he eats 50% of his meals. Percent of energy/protein needs met: 53%/38% #1 Nutrition Diagnosis Inadequate oral intake Etiology decreased appetite As Evidenced by Signs and Symptoms pt statement that he eats 50% of his meals Is patient on ventilator? No Is Patient Ambulatory and/or Out of Bed No REE-([facility]-confined to bed) Calculation Used for Recommendations [facility] Additional Notes Protein Needs: 109-136g (1.2-1 .5g/kg) Fluid Needs: 1 ml/kcal Nutrition Intervention Change Diet Order: Continue current Add Supplement/Snack (indicate name/kcal Ensure Enlive Vanilla or /protein ) Chocolate BID Provides kCal: 700 Provides Protein (gm) 40 Goal #1 Meet at least 75% of calorie and protein needs via PO and ONS intakes Anticipated Discharge Needs: Cardiac diet Follow-Up By: 02/03/19 Additional Comments Follow for PO and ONS intakes
[2019-02-01] MEDS: CORDARONE 900 MG in D5W 482 ML IV SCH (18:23)
[2019-02-02] MEDS: LOPRESSOR PO SCH ×3 (05:13→22:07)
[2019-02-02] MEDS: SYNTHROID PO SCH (05:13)
[2019-02-02] MEDS: FEOSOL PO SCH (09:21)
[2019-02-02] MEDS: PROTONIX PO SCH (09:21)
[2019-02-02] MEDS: HALFPRIN EC PO SCH (09:21)
--- NOTE | 2019-02-02 11:13 | Progress Note ---
Assessment and Plan Assessment and plan: Patient is a 78 yo man with a history of afib, hypertension, asthma, hypothyroid, recent GIB with Gastric ulcer s/p endoclip repair who present with left leg pains and palpitations -Atrial fibrillation with RVR: Cardiology following, treated with iv Amiodarone to Po, not back on Amiodarone IV drip on Saturday -Hypotension: monitor closely, cardiology following -Left leg pain: per Vascular/IR [employer] consultant: "The patient has bilateral lower extremity swelling. Additionally, the patient has had extensive surgical repairs to his knees. Ultrasound demonstrates no evidence of DVT however, the patient has bilateral ruptured Ceballos's cyst. We'll consult orthopedic surgery for further evaluation. We'll evaluate patient for venous option with reflux for venous insufficiency which may be contributing to his leg swelling however, optimizing the patient's cardiac output may be most beneficial in reducing his fluid retention." -HTN (hypertension) low salt diet -Neck pains, xray showing possible spasms: added flexeril prn -Hyperkalemia, mild: give a dose of kayexalate today -Hypothyroidism, uncontrolled: adjust synthroid -GERD (gastroesophageal reflux disease) On PPI's -Anemia, acute on chronic GI bleed recently, no tire sorter a/c -DVT prophylaxis: On Lovenox and GI prophylaxis -severe malnutrition, poa: 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 Wants rehab, he is not walking I called and spoke with at bedside but her is cell number, . 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 Disposition: Continue inpatient telemetry, d/c to SNF once heart rate is control led History Interval history: Patient was seen and examined. Follow-up on current diagnosis of afib with rvr and left leg pains (resolved), neck pains better. Overnight uneventful. Patient denies any chest pain, shortness breath, nausea/vomiting or severe headaches. Imaging, nursing note, chart, labs and old chart reviewed. Discussed with patient. Hospitalist Physical - Physical exam Narrative exam: Gen: chronic disable with severe deconditioning, NAD, Awake, Orientated HEENT: NCAT, EOMI, PERRL, OP Clear Neck: supple, no adenopathy, no thyromegaly, no JVD CVS/Heart: irregular normal S1S2, pulses present bilaterally Chest/Lungs: CTA B, Symmetrical chest expansion, good air entry bilaterally GI/Abdomen: soft, NTND, good bowel sounds, no guarding or rebound /Bladder: no suprapubic tenderness, no CVA or paraspinal tenderness Extermity/Skin: no c/c/e, no obvious rash MSK: FROM x 4 Neuro: CN 2-12 grossly intact, no new focal deficits Psych: calm - Constitutional Vitals: Temp Pulse Resp BP Pulse Ox 97.9 F 114 H 18 104/72 97 02/02/19 09:01 02/02/19 09:01 02/02/19 09:01 02/02/19 09:01 02/02/19 09:17 General appearance: Present: no acute distress Results - Labs CBC & Chem 7: 01/31/19 05:32 01/31/19 05:32 Labs: Laboratory Last Values WBC 18.5 K/mm3 (4.5-11.0) H 01/31/19 05:32 RBC 2.96 M/mm3 (3.65-5.03) L 01/31/19 05:32 Hgb 9.1 gm/dl (11.8-15.2) L 01/31/19 05:32 Hct 28.2 % (35.5-45.6) L 01/31/19 05:32 MCV 95 fl (84-94) H 01/31/19 05:32 MCH 31 pg (28-32) 01/31/19 05:32 MCHC 32 % (32-34) 01/31/19 05:32 RDW 19.3 % (13.2-15.2) H 01/31/19 05:32 Plt Count 502 K/mm3 (140-440) H 01/31/19 05:32 Add Manual Diff Complete 01/27/19 10:23 Total Counted 100 01/27/19 10:23 Seg Neutrophils % Cloak Room Attendant 01/27/19 10:23 Seg Neuts % (Manual) 90.0 % (40.0-70.0) H 01/27/19 10:23 Band Neutrophils % 0 % 01/27/19 10:23 Lymphocytes % (Manual) 7.0 % (13.4-35.0) L 01/27/19 10:23 Reactive Lymphs % (Man) 0 % 01/27/19 10:23 Monocytes % (Manual) 3.0 % (0.0-7.3) 01/27/19 10:23 Eosinophils % (Manual) 0 % (0.0-4.3) 01/27/19 10:23 Metamyelocytes % 0 % 01/27/19 10:23 Myelocytes % 0 % 01/27/19 10:23 Promyelocytes % 0 % 01/27/19 10:23 Blast Cells % 0 % 01/27/19 10:23 Nucleated RBC % Not Reportable 01/27/19 10:23 Seg Neutrophils # Man 10.7 K/mm3 (1.8-7.7) H 01/27/19 10:23 Band Neutrophils # 0.0 K/mm3 01/27/19 10:23 Lymphocytes # (Manual) 0.8 K/mm3 (1.2-5.4) L 01/27/19 10:23 Abs React Lymphs (Man) 0.0 K/mm3 01/27/19 10:23 Monocytes # (Manual) 0.4 K/mm3 (0.0-0.8) 01/27/19 10:23 Eosinophils # (Manual) 0.0 K/mm3 (0.0-0.4) 01/27/19 10:23 Basophils # (Manual) 0.0 K/mm3 (0.0-0.1) 01/27/19 10:23 Metamyelocytes # 0.0 K/mm3 01/27/19 10:23 Myelocytes # 0.0 K/mm3 01/27/19 10:23 Promyelocytes # 0.0 K/mm3 01/27/19 10:23 Blast Cells # 0.0 K/mm3 01/27/19 10:23 WBC Morphology Not Reportable 01/27/19 10:23 Hypersegmented Neuts Not Reportable 01/27/19 10:23 Hyposegmented Neuts Not Reportable 01/27/19 10:23 Hypogranular Neuts Not Reportable 01/27/19 10:23 Smudge Cells Not Reportable 01/27/19 10:23 Toxic Granulation Not Reportable 01/27/19 10:23 Toxic Vacuolation Not Reportable 01/27/19 10:23 Dohle Bodies Not Reportable 01/27/19 10:23 Pelger-Huet Anomaly Not Reportable 01/27/19 10:23 Eugenio Rods Not Reportable 01/27/19 10:23 Platelet Estimate Consistent w auto 01/27/19 10:23 Clumped Platelets Not Reportable 01/27/19 10:23 Plt Clumps, EDTA Not Reportable 01/27/19 10:23 Large Platelets Not Reportable 01/27/19 10:23 Giant Platelets Rare 01/27/19 10:23 Platelet Satelliting Not Reportable 01/27/19 10:23 Plt Morphology Comment Not Reportable 01/27/19 10:23 RBC Morphology Not Reportable 01/27/19 10:23 Dimorphic RBCs Not Reportable 01/27/19 10:23 Polychromasia Not Reportable 01/27/19 10:23 Hypochromasia Not Reportable 01/27/19 10:23 Poikilocytosis Few 01/27/19 10:23 Anisocytosis Few 01/27/19 10:23 Microcytosis Not Reportable 01/27/19 10:23 Macrocytosis Not Reportable 01/27/19 10:23 Spherocytes Not Reportable 01/27/19 10:23 Pappenheimer Bodies Not Reportable 01/27/19 10:23 Sickle Cells Not Reportable 01/27/19 10:23 Target Cells Not Reportable 01/27/19 10:23 Tear Drop Cells Not Reportable 01/27/19 10:23 Ovalocytes Not Reportable 01/27/19 10:23 Helmet Cells Not Reportable 01/27/19 10:23 [place] Bodies Not Reportable 01/27/19 10:23 [place] Rings Not Reportable 01/27/19 10:23 [place] Cells Not Reportable 01/27/19 10:23 Bite Cells Not Reportable 01/27/19 10:23 Crenated Cell Not Reportable 01/27/19 10:23 Elliptocytes Rare 01/27/19 10:23 Acanthocytes (Spur) Not Reportable 01/27/19 10:23 Rouleaux Not Reportable 01/27/19 10:23 Hemoglobin C Crystals Not Reportable 01/27/19 10:23 Schistocytes Not Reportable 01/27/19 10:23 Malaria parasites Not Reportable 01/27/19 10:23 Derick Bodies Not Reportable 01/27/19 10:23 Hem Pathologist Commnt No 01/27/19 10:23 Sodium 133 mmol/L (137-145) L 01/31/19 05:32 Potassium 5.1 mmol/L (3.6-5.0) H 01/31/19 05:32 Chloride 98.3 mmol/L (98-107) 01/31/19 05:32 Carbon Dioxide 27 mmol/L (22-30) 01/31/19 05:32 Anion Gap 13 mmol/L 01/31/19 05:32 BUN 25 mg/dL (9-20) H 01/31/19 05:32 Creatinine 0.6 mg/dL (0.8-1.5) L 01/31/19 05:32 Estimated GFR > 60 ml/min 01/31/19 05:32 BUN/Creatinine Ratio 42 % 01/31/19 05:32 Glucose 88 mg/dL (75-100) 01/31/19 05:32 Calcium 8.1 mg/dL (8.4-10.2) L 01/31/19 05:32 Magnesium 1.80 mg/dL (1.7-2.3) 01/29/19 05:13 Iron 7 ug/dL (49-181) L 01/28/19 07:06 TIBC 92 mcg/dL (250-450) L 01/28/19 07:06 % Saturation 7.61 % 01/28/19 07:06 Transferrin 89 mg/dl (180-329) L 01/28/19 07:06 Total Bilirubin 0.40 mg/dL (0.1-1.2) 01/27/19 10:19 AST 23 units/L (5-40) 01/27/19 10:19 ALT 20 units/L (7-56) 01/27/19 10:19 Alkaline Phosphatase 111 units/L (35-129) 01/27/19 10:19 Troponin T < 0.010 ng/mL (0.00-0.029) 01/27/19 10:19 Total Protein 5.9 g/dL (6.3-8.2) L 01/27/19 10:19 Albumin 1.9 g/dL (3.9-5) L 01/27/19 10:19 Albumin/Globulin Ratio 0.5 % 01/27/19 10:19 Vitamin B12 1887 pg/mL (211-911) H 01/28/19 07:06 TSH 8.080 mlU/mL (0.270-4.200) H 01/28/19 07:06 Active Medications - Current Medications Current Medications: Generic Name Dose Route Start Last Admin Trade Name Freq PRN Reason Stop Dose Admin Aspirin 81 mg 01/28/19 10:00 02/02/19 09:21 Halfprin Ec PO 81 mg QDAY JONI Administration Cyclobenzaprine HCl 10 mg 01/30/19 08:30 01/30/19 09:41 Flexeril PO 10 mg Q8H PRN Administration Muscle Spasm Ferrous Sulfate 325 mg 01/28/19 10:00 02/02/19 09:21 Feosol PO 325 mg DAILY JONI Administration Ceftriaxone Sodium 2 gm in 100 mls @ 200 mls/hr 01/30/19 12:00 02/01/19 12:42 Rocephin/Ns 2 Gm/100 Ml IV 200 mls/hr Q24H JONI Administration Protocol Amiodarone HCl 900 mg/ 500 mls @ 33.333 mls/hr 02/01/19 18:00 02/02/19 00:58 Dextrose IV 0.5 mg/min DIRECT JONI 16.667 mls/hr Titration Protocol 1 MG/MIN Levothyroxine Sodium 112 mcg 01/28/19 06:00 02/02/19 05:13 Synthroid PO 112 mcg DAILY@0600 JONI Administration Metoprolol Tartrate 2.5 mg 01/29/19 12:51 Lopressor IV Q6HR PRN HR>130 Metoprolol Tartrate 50 mg 01/30/19 18:00 02/02/19 05:13 Lopressor PO 50 mg Q12H JONI Administration Nicotine 21 mg 01/29/19 00:23 02/01/19 23:46 Habitrol TD 21 mg Q24H JONI Administration Oxycodone HCl 10 mg 01/29/19 13:29 01/31/19 10:04 Roxicodone PO 10 mg Q6H PRN Administration Pain , Severe (7-10) Pantoprazole Sodium 40 mg 01/28/19 10:00 02/02/19 09:21 Protonix PO 40 mg QDAY JONI Administration Nutrition/Malnutrition Assess - Dietary Evaluation Nutrition/Malnutrition Findings: Nutrition Notes Start: 01/28/19 15:47 Freq: Status: Active Protocol: Document 01/29/19 14:14 RM (Rec: 01/29/19 14:20 RM [id number]) Nutrition Notes Initial or Follow up Assessment Current Diagnosis Hypertension Other Pertinent Diagnosis L & R buttocks PUs, Hypothyroidism, LLE edema, GERD Current Diet cardiac Labs/Tests Reviewed Pertinent Medications Reviewed Height 5 ft 11 in Weight 90.6 kg [place] Body Weight (kg) 78.18 BMI 27.8 Subjective/Other Information Pt stated that his appetite is "so so" and he eats 50% of his meals. Percent of energy/protein needs met: 53%/38% #1 Nutrition Diagnosis Inadequate oral intake Etiology decreased appetite As Evidenced by Signs and Symptoms pt statement that he eats 50% of his meals Is patient on ventilator? No Is Patient Ambulatory and/or Out of Bed No REE-([facility]-confined to bed) 05 Calculation Used for Recommendations [facility] Additional Notes Protein Needs: 109-136g (1.2-1 .5g/kg) Fluid Needs: 1 ml/kcal Nutrition Intervention Change Diet Order: Continue current Add Supplement/Snack (indicate name/kcal Ensure Enlive Vanilla or /protein ) Chocolate BID Provides kCal: 700 Provides Protein (gm) 40 Goal #1 Meet at least 75% of calorie and protein needs via PO and ONS intakes Anticipated Discharge Needs: Cardiac diet Follow-Up By: 02/03/19 Additional Comments Follow for PO and ONS intakes
[2019-02-02] MEDS ORDERED: KIONEX PO ONE (12:11)
[2019-02-02] MEDS: ROCEPHIN/NS 2 GM/100 ML 2 GM/100 ML BAG IV SCH (12:47)
--- NOTE | 2019-02-02 13:14 | Progress Note ---
Assessment and Plan Popliteal cysts both lower extremities Recommendations- observation only non surgical problem, physical therapy and pain control.... Subjective Date of service: 02/02/19 Interval history: still c/o bilateral leg pain Objective Vital signs: Vital Signs - 12hr 02/02/19 02/02/19 02/02/19 04:06 09:01 09:17 Temperature 99.1 F 97.9 F Pulse Rate 93 H 114 H Respiratory 18 18 Rate Blood Pressure 103/75 104/72 O2 Sat by Pulse 94 99 97 Oximetry - Labs CBC & BMP: 01/31/19 05:32 01/31/19 05:32
[2019-02-02] MEDS: CORDARONE 900 MG in D5W 482 ML IV SCH (18:57)
[2019-02-03] MEDS: HABITROL TD SCH (01:54)
[2019-02-03] MEDS: ROXICODONE PO PRN ×2 (02:00→22:11)
[2019-02-03] MEDS: SYNTHROID PO SCH (06:05)
[2019-02-03] MEDS: LOPRESSOR PO SCH ×2 (06:05→17:53)
[2019-02-03 07:04] LABS: Hematocrit 28.5 % (35.5-45.6); Hemoglobin 9.1 gm/dl (11.8-15.2); Mean Corpuscular HGB Conc 32 % (32-34); Mean Corpuscular Volume 95 fl (84-94); Platelet Count 378 K/mm3 (140-440); Red Blood Count 3.01 M/mm3 (3.65-5.03)
[2019-02-03 07:24] LABS: BUN/Creatinine Ratio 37; Blood Urea Nitrogen 11 mg/dL (9-20); Calcium 7.9 mg/dL (8.4-10.2); Hemolysis Index 6
[2019-02-03] MEDS: HALFPRIN EC PO SCH (09:57)
[2019-02-03] MEDS: FEOSOL PO SCH (09:57)
[2019-02-03] MEDS: PROTONIX PO SCH (09:57)
--- NOTE | 2019-02-03 11:38 | Progress Note ---
Assessment and Plan Generalized pain -chief complaint Atrial fibrillation, paroxysmal on amiodarone and metoprolol patient is not a candidate for oral anticoagulation s/t severe anemia and recent GI bleed. Unilateral LE edema LE venous doppler reports no evidence of DVT Recent GI bleed recent EGD workup revealed gastric ulcer Chronic Anemia Hypothyroidism Hyponatremia Elevated liver transaminase Chronic lung disease Tobacco abuse Ascending thoracic aorta aneurysm measuring 5cm An echocardiogram 12/2018 reveal moderate aortic valve calcification with moderate to severe aortic stenosis. Left ventricular systolic function is normal, EF 60%. Small fixed apical wall defect, no reversible ischemia on MPI done 01/2018. Subjective Date of service: 02/03/19 Interval history: Cardiology recalled for rapid afib. Patient appears lethargic. He denies palpitations. Currently on IV amiodarone Objective Vital Signs Temp Pulse Resp BP BP Pulse Ox 02/03/19 11:06 96 02/03/19 04:00 117 H 02/03/19 03:31 117 H 100 02/03/19 03:30 114 H 100 02/03/19 03:29 97.4 F L 20 116/70 02/02/19 23:59 98.3 F 120 H 20 117/62 97 02/02/19 20:01 97 02/02/19 20:00 20 02/02/19 19:34 98.0 F 18 107/77 02/02/19 17:09 98.3 F 79 20 115/70 98 02/02/19 14:14 78 89 02/02/19 14:13 79 88/47 89 02/02/19 14:07 124 H 100 - Physical Examination General: No Apparent Distress HEENT: Positive: PERRL Neck: Positive: trachea midline Cardiac: Positive: irregularly irregular Lungs: Positive: Decreased Breath Sounds Neuro: Positive: Grossly Intact, Weakness Extremities: Present: edema (unilateral) - Labs and Meds CBC 02/03/19 Range/Units 06:20 WBC 18.0 H (4.5-11.0) K/mm3 RBC 3.01 L (3.65-5.03) M/mm3 Hgb 9.1 L (11.8-15.2) gm/dl Hct 28.5 L (35.5-45.6) % Plt Count 378 (140-440) K/mm3 Comprehensive Metabolic Panel 02/03/19 Range/Units 06:20 Sodium 136 L (137-145) mmol/L Potassium 4.8 (3.6-5.0) mmol/L Chloride 94.4 L (98-107) mmol/L Carbon Dioxide 34 H D (22-30) mmol/L BUN 11 (9-20) mg/dL Creatinine 0.3 L (0.8-1.5) mg/dL Glucose 98 (75-100) mg/dL Calcium 7.9 L (8.4-10.2) mg/dL
--- NOTE | 2019-02-03 12:10 | Progress Note ---
<CHASE CABRERA - Last Filed: 02/03/19 16:08> Assessment and Plan Assessment and plan: 78 yo man with a history of afib, hypertension, asthma, hypothyroid, recent GIB with Gastric ulcer s/p endoclip repair who presented to ED on with c/o left leg pains and palpitations. He was previously admitted to [facility] approximately one month ago with similar presentation. An echocardiogram performed during previous admission revealed moderate aortic valve calcification with moderate to severe aortic stenosis. Left ventricular systolic function is normal, EF 60%. 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 Atrial fibrillation with RVR On IV Amiodarone gtt- with plans to transition to po amiodarone tomorrow Cardiology followign and managing Left Leg Pain Doppler 01/28 negative for DVT Vascular/IR recommendation: The patient has bilateral lower extremity swelling. Additionally, the patient has had extensive surgical repairs to his knees. Ultrasound demonstrates no evidence of DVT however, the patient has bilateral ruptured Ceballos's cyst. We'll consult orthopedic surgery for further evaluation. We'll evaluate patient for venous option with reflux for venous insufficiency which may be contributing to his leg swelling however, optimizing the patient's cardiac output may be most beneficial in reducing his fluid retention." Hypertension Continue Lopressor Continue to monitor BP History of GERD On Protonix Anemia- hx of GI bleed Recent EGD revealed gastric ulcers Hgb on admission 8.6/26.1 Hgb this am 9.1/28.5 Continue to monitor DVT PPX On Lovenox full code History Interval history: Pt seems to be disoriented to place and time. There were no acute overnight events. Hospitalist Physical - Constitutional Vitals: Temp Pulse Resp BP Pulse Ox 97.4 F L 117 H 20 116/70 96 02/03/19 03:29 02/03/19 04:00 02/03/19 03:29 02/03/19 03:29 02/03/19 11:06 General appearance: Present: no acute distress - EENT Eyes: Present: PERRL ENT: hearing intact, poor dentition - Neck Neck: Present: normal ROM - Respiratory Respiratory effort: normal Respiratory: bilateral: diminished (bases) - Cardiovascular Rhythm: irregularly irregular Heart Sounds: Present: S1 & S2 - Extremities Extremities: abnormal Extremity abnormal: edema, deformity Peripheral Pulses: within normal limits - Abdominal General gastrointestinal: soft, non-tender, normal bowel sounds - Integumentary Integumentary: Present: warm, dry - Psychiatric Psychiatric: cooperative - Neurologic Neurologic: moves all extremities Results - Labs CBC & Chem 7: 02/03/19 06:20 02/03/19 06:20 Labs: Laboratory Last Values WBC 18.0 K/mm3 (4.5-11.0) H 02/03/19 06:20 RBC 3.01 M/mm3 (3.65-5.03) L 02/03/19 06:20 Hgb 9.1 gm/dl (11.8-15.2) L 02/03/19 06:20 Hct 28.5 % (35.5-45.6) L 02/03/19 06:20 MCV 95 fl (84-94) H 02/03/19 06:20 MCH 30 pg (28-32) 02/03/19 06:20 MCHC 32 % (32-34) 02/03/19 06:20 RDW 19.0 % (13.2-15.2) H 02/03/19 06:20 Plt Count 378 K/mm3 (140-440) 02/03/19 06:20 Add Manual Diff Complete 01/27/19 10:23 Total Counted 100 01/27/19 10:23 Seg Neutrophils % Scooping Machine Tender 01/27/19 10:23 Seg Neuts % (Manual) 90.0 % (40.0-70.0) H 01/27/19 10:23 Band Neutrophils % 0 % 01/27/19 10:23 Lymphocytes % (Manual) 7.0 % (13.4-35.0) L 01/27/19 10:23 Reactive Lymphs % (Man) 0 % 01/27/19 10:23 Monocytes % (Manual) 3.0 % (0.0-7.3) 01/27/19 10:23 Eosinophils % (Manual) 0 % (0.0-4.3) 01/27/19 10:23 Metamyelocytes % 0 % 01/27/19 10:23 Myelocytes % 0 % 01/27/19 10:23 Promyelocytes % 0 % 01/27/19 10:23 Blast Cells % 0 % 01/27/19 10:23 Nucleated RBC % Not Reportable 01/27/19 10:23 Seg Neutrophils # Man 10.7 K/mm3 (1.8-7.7) H 01/27/19 10:23 Band Neutrophils # 0.0 K/mm3 01/27/19 10:23 Lymphocytes # (Manual) 0.8 K/mm3 (1.2-5.4) L 01/27/19 10:23 Abs React Lymphs (Man) 0.0 K/mm3 01/27/19 10:23 Monocytes # (Manual) 0.4 K/mm3 (0.0-0.8) 01/27/19 10:23 Eosinophils # (Manual) 0.0 K/mm3 (0.0-0.4) 01/27/19 10:23 Basophils # (Manual) 0.0 K/mm3 (0.0-0.1) 01/27/19 10:23 Metamyelocytes # 0.0 K/mm3 01/27/19 10:23 Myelocytes # 0.0 K/mm3 01/27/19 10:23 Promyelocytes # 0.0 K/mm3 01/27/19 10:23 Blast Cells # 0.0 K/mm3 01/27/19 10:23 WBC Morphology Not Reportable 01/27/19 10:23 Hypersegmented Neuts Not Reportable 01/27/19 10:23 Hyposegmented Neuts Not Reportable 01/27/19 10:23 Hypogranular Neuts Not Reportable 01/27/19 10:23 Smudge Cells Not Reportable 01/27/19 10:23 Toxic Granulation Not Reportable 01/27/19 10:23 Toxic Vacuolation Not Reportable 01/27/19 10:23 Dohle Bodies Not Reportable 01/27/19 10:23 Pelger-Huet Anomaly Not Reportable 01/27/19 10:23 Eugenio Rods Not Reportable 01/27/19 10:23 Platelet Estimate Consistent w auto 01/27/19 10:23 Clumped Platelets Not Reportable 01/27/19 10:23 Plt Clumps, EDTA Not Reportable 01/27/19 10:23 Large Platelets Not Reportable 01/27/19 10:23 Giant Platelets Rare 01/27/19 10:23 Platelet Satelliting Not Reportable 01/27/19 10:23 Plt Morphology Comment Not Reportable 01/27/19 10:23 RBC Morphology Not Reportable 01/27/19 10:23 Dimorphic RBCs Not Reportable 01/27/19 10:23 Polychromasia Not Reportable 01/27/19 10:23 Hypochromasia Not Reportable 01/27/19 10:23 Poikilocytosis Few 01/27/19 10:23 Anisocytosis Few 01/27/19 10:23 Microcytosis Not Reportable 01/27/19 10:23 Macrocytosis Not Reportable 01/27/19 10:23 Spherocytes Not Reportable 01/27/19 10:23 Pappenheimer Bodies Not Reportable 01/27/19 10:23 Sickle Cells Not Reportable 01/27/19 10:23 Target Cells Not Reportable 01/27/19 10:23 Tear Drop Cells Not Reportable 01/27/19 10:23 Ovalocytes Not Reportable 01/27/19 10:23 Helmet Cells Not Reportable 01/27/19 10:23 [place] Bodies Not Reportable 01/27/19 10:23 [place] Rings Not Reportable 01/27/19 10:23 Jame Cells Not Reportable 01/27/19 10:23 Bite Cells Not Reportable 01/27/19 10:23 Crenated Cell Not Reportable 01/27/19 10:23 Elliptocytes Rare 01/27/19 10:23 Acanthocytes (Spur) Not Reportable 01/27/19 10:23 Rouleaux Not Reportable 01/27/19 10:23 Hemoglobin C Crystals Not Reportable 01/27/19 10:23 Schistocytes Not Reportable 01/27/19 10:23 Malaria parasites Not Reportable 01/27/19 10:23 Derick Bodies Not Reportable 01/27/19 10:23 Hem Pathologist Commnt No 01/27/19 10:23 Sodium 136 mmol/L (137-145) L 02/03/19 06:20 Potassium 4.8 mmol/L (3.6-5.0) 02/03/19 06:20 Chloride 94.4 mmol/L (98-107) L 02/03/19 06:20 Carbon Dioxide 34 mmol/L (22-30) H D 02/03/19 06:20 Anion Gap 12 mmol/L 02/03/19 06:20 BUN 11 mg/dL (9-20) 02/03/19 06:20 Creatinine 0.3 mg/dL (0.8-1.5) L 02/03/19 06:20 Estimated GFR > 60 ml/min 02/03/19 06:20 BUN/Creatinine Ratio 37 % 02/03/19 06:20 Glucose 98 mg/dL (75-100) 02/03/19 06:20 Calcium 7.9 mg/dL (8.4-10.2) L 02/03/19 06:20 Magnesium 1.80 mg/dL (1.7-2.3) 01/29/19 05:13 Iron 7 ug/dL (49-181) L 01/28/19 07:06 TIBC 92 mcg/dL (250-450) L 01/28/19 07:06 % Saturation 7.61 % 01/28/19 07:06 Transferrin 89 mg/dl (180-329) L 01/28/19 07:06 Total Bilirubin 0.40 mg/dL (0.1-1.2) 01/27/19 10:19 AST 23 units/L (5-40) 01/27/19 10:19 ALT 20 units/L (7-56) 01/27/19 10:19 Alkaline Phosphatase 111 units/L (35-129) 01/27/19 10:19 Troponin T < 0.010 ng/mL (0.00-0.029) 01/27/19 10:19 Total Protein 5.9 g/dL (6.3-8.2) L 01/27/19 10:19 Albumin 1.9 g/dL (3.9-5) L 01/27/19 10:19 Albumin/Globulin Ratio 0.5 % 01/27/19 10:19 Vitamin B12 1887 pg/mL (211-911) H 01/28/19 07:06 RBC Folic Acid >1000 ng/mL (>280) 01/28/19 07:06 TSH 8.080 mlU/mL (0.270-4.200) H 01/28/19 07:06 Active Medications - Current Medications Current Medications: Generic Name Dose Route Start Last Admin Trade Name Freq PRN Reason Stop Dose Admin Aspirin 81 mg 01/28/19 10:00 02/03/19 09:57 Halfprin Ec PO 81 mg QDAY JONI Administration Cyclobenzaprine HCl 10 mg 01/30/19 08:30 01/30/19 09:41 Flexeril PO 10 mg Q8H PRN Administration Muscle Spasm Ferrous Sulfate 325 mg 01/28/19 10:00 02/03/19 09:57 Feosol PO 325 mg DAILY JONI Administration Ceftriaxone Sodium 2 gm in 100 mls @ 200 mls/hr 01/30/19 12:00 02/02/19 12:47 Rocephin/Ns 2 Gm/100 Ml IV 200 mls/hr Q24H JONI Administration Protocol Amiodarone HCl 900 mg/ 500 mls @ 33.333 mls/hr 02/01/19 18:00 02/02/19 18:57 Dextrose IV 0.5 mg/min DIRECT JONI 16.667 mls/hr Administration Protocol 1 MG/MIN Levothyroxine Sodium 112 mcg 01/28/19 06:00 02/03/19 06:05 Synthroid PO 112 mcg DAILY@0600 JONI Administration Metoprolol Tartrate 2.5 mg 01/29/19 12:51 Lopressor IV Q6HR PRN HR>130 Metoprolol Tartrate 50 mg 01/30/19 18:00 02/03/19 06:05 Lopressor PO 50 mg Q12H JONI Administration Nicotine 21 mg 01/29/19 00:23 02/03/19 01:54 Habitrol TD 21 mg Q24H JONI Administration Oxycodone HCl 10 mg 01/29/19 13:29 02/03/19 02:00 Roxicodone PO 10 mg Q6H PRN Administration Pain , Severe (7-10) Pantoprazole Sodium 40 mg 01/28/19 10:00 02/03/19 09:57 Protonix PO 40 mg QDAY JONI Administration Nutrition/Malnutrition Assess - Dietary Evaluation Nutrition/Malnutrition Findings: Nutrition Notes Start: 01/28/19 15:47 Freq: Status: Active Protocol: Document 02/03/19 10:06 (Rec: 02/03/19 10:17 [email or web address]) Co-Sign 02/03/19 10:06 LP Nutrition Notes Initial or Follow up Reassessment Current Diagnosis Decubitus(Pressure Ulcer), Hypertension Other Pertinent Diagnosis Hypothyroidism, LLE edema, GERD Current Diet cardiac Labs/Tests Na: 136 Cr: 0.3 M.9 Pertinent Medications Reviewed Height 5 ft 11 in Weight 90.6 kg [place] Body Weight (kg) 78.18 BMI 27.8 Subjective/Other Information Patient states appetite is good but doesn't like this facilities food. Pt reports eating 50% of meals during hosiptal stay. Pt reports drinking 100% of ONS BID. Pt denies N/V/D. Pt states UBW: 158#. Percent of energy/protein needs met: 88%/75% #1 Nutrition Diagnosis Inadequate oral intake As Evidenced by Signs and Symptoms pt meeting at least 75% of kcal and pro needs via PO and ONS intake Diagnosis Progress(for reassessment Improved documentation) Is patient on ventilator? No Is Patient Ambulatory and/or Out of Bed No REE-([facility]-confined to bed) Calculation Used for Recommendations [facility] Additional Notes Protein Needs: 109-136g (1.2-1 .5g/kg) Fluid Needs: 1 ml/kcal Nutrition Intervention Change Diet Order: Continue current Add Supplement/Snack (indicate name/kcal Ensure Enlive Vanilla or /protein ) Chocolate BID Provides kCal: 700 Provides Protein (gm) 40 Goal #1 Meet at least 75% of calorie and protein needs via PO and ONS intakes Anticipated Discharge Needs: Cardiac diet Follow-Up By: 02/10/19 Additional Comments F/U: PO and ONS intakes <JOSHUA KIRK M - Last Filed: 02/06/19 22:22> Assessment and Plan Assessment and plan: I saw and evaluated the patient. I agree with the findings and the plan of care as documented in the Nurse Practitioner's~note Hospitalist Physical - Constitutional Vitals: Temp Pulse Resp BP Pulse Ox 98.1 F 60 18 118/60 95 02/06/19 16:35 02/06/19 19:13 02/06/19 16:35 02/06/19 19:13 02/06/19 16:35 Results - Labs CBC & Chem 7: 02/03/19 06:20 02/03/19 06:20 Labs: Laboratory Last Values WBC 18.0 K/mm3 (4.5-11.0) H 02/03/19 06:20 RBC 3.01 M/mm3 (3.65-5.03) L 02/03/19 06:20 Hgb 9.1 gm/dl (11.8-15.2) L 02/03/19 06:20 Hct 28.5 % (35.5-45.6) L 02/03/19 06:20 MCV 95 fl (84-94) H 02/03/19 06:20 MCH 30 pg (28-32) 02/03/19 06:20 MCHC 32 % (32-34) 02/03/19 06:20 RDW 19.0 % (13.2-15.2) H 02/03/19 06:20 Plt Count 378 K/mm3 (140-440) 02/03/19 06:20 Add Manual Diff Complete 01/27/19 10:23 Total Counted 100 01/27/19 10:23 Seg Neutrophils % Scooping Machine Tender 01/27/19 10:23 Seg Neuts % (Manual) 90.0 % (40.0-70.0) H 01/27/19 10:23 Band Neutrophils % 0 % 01/27/19 10:23 Lymphocytes % (Manual) 7.0 % (13.4-35.0) L 01/27/19 10:23 Reactive Lymphs % (Man) 0 % 01/27/19 10:23 Monocytes % (Manual) 3.0 % (0.0-7.3) 01/27/19 10:23 Eosinophils % (Manual) 0 % (0.0-4.3) 01/27/19 10:23 Metamyelocytes % 0 % 01/27/19 10:23 Myelocytes % 0 % 01/27/19 10:23 Promyelocytes % 0 % 01/27/19 10:23 Blast Cells % 0 % 01/27/19 10:23 Nucleated RBC % Not Reportable 01/27/19 10:23 Seg Neutrophils # Man 10.7 K/mm3 (1.8-7.7) H 01/27/19 10:23 Band Neutrophils # 0.0 K/mm3 01/27/19 10:23 Lymphocytes # (Manual) 0.8 K/mm3 (1.2-5.4) L 01/27/19 10:23 Abs React Lymphs (Man) 0.0 K/mm3 01/27/19 10:23 Monocytes # (Manual) 0.4 K/mm3 (0.0-0.8) 01/27/19 10:23 Eosinophils # (Manual) 0.0 K/mm3 (0.0-0.4) 01/27/19 10:23 Basophils # (Manual) 0.0 K/mm3 (0.0-0.1) 01/27/19 10:23 Metamyelocytes # 0.0 K/mm3 01/27/19 10:23 Myelocytes # 0.0 K/mm3 01/27/19 10:23 Promyelocytes # 0.0 K/mm3 01/27/19 10:23 Blast Cells # 0.0 K/mm3 01/27/19 10:23 WBC Morphology Not Reportable 01/27/19 10:23 Hypersegmented Neuts Not Reportable 01/27/19 10:23 Hyposegmented Neuts Not Reportable 01/27/19 10:23 Hypogranular Neuts Not Reportable 01/27/19 10:23 Smudge Cells Not Reportable 01/27/19 10:23 Toxic Granulation Not Reportable 01/27/19 10:23 Toxic Vacuolation Not Reportable 01/27/19 10:23 Dohle Bodies Not Reportable 01/27/19 10:23 Pelger-Huet Anomaly Not Reportable 01/27/19 10:23 Eugenio Rods Not Reportable 01/27/19 10:23 Platelet Estimate Consistent w auto 01/27/19 10:23 Clumped Platelets Not Reportable 01/27/19 10:23 Plt Clumps, EDTA Not Reportable 01/27/19 10:23 Large Platelets Not Reportable 01/27/19 10:23 Giant Platelets Rare 01/27/19 10:23 Platelet Satelliting Not Reportable 01/27/19 10:23 Plt Morphology Comment Not Reportable 01/27/19 10:23 RBC Morphology Not Reportable 01/27/19 10:23 Dimorphic RBCs Not Reportable 01/27/19 10:23 Polychromasia Not Reportable 01/27/19 10:23 Hypochromasia Not Reportable 01/27/19 10:23 Poikilocytosis Few 01/27/19 10:23 Anisocytosis Few 01/27/19 10:23 Microcytosis Not Reportable 01/27/19 10:23 Macrocytosis Not Reportable 01/27/19 10:23 Spherocytes Not Reportable 01/27/19 10:23 Pappenheimer Bodies Not Reportable 01/27/19 10:23 Sickle Cells Not Reportable 01/27/19 10:23 Target Cells Not Reportable 01/27/19 10:23 Tear Drop Cells Not Reportable 01/27/19 10:23 Ovalocytes Not Reportable 01/27/19 10:23 Helmet Cells Not Reportable 01/27/19 10:23 [place] Bodies Not Reportable 01/27/19 10:23 [place] Rings Not Reportable 01/27/19 10:23 Jame Cells Not Reportable 01/27/19 10:23 Bite Cells Not Reportable 01/27/19 10:23 Crenated Cell Not Reportable 01/27/19 10:23 Elliptocytes Rare 01/27/19 10:23 Acanthocytes (Spur) Not Reportable 01/27/19 10:23 Rouleaux Not Reportable 01/27/19 10:23 Hemoglobin C Crystals Not Reportable 01/27/19 10:23 Schistocytes Not Reportable 01/27/19 10:23 Malaria parasites Not Reportable 01/27/19 10:23 Derick Bodies Not Reportable 01/27/19 10:23 Hem Pathologist Commnt No 01/27/19 10:23 Sodium 136 mmol/L (137-145) L 02/03/19 06:20 Potassium 4.8 mmol/L (3.6-5.0) 02/03/19 06:20 Chloride 94.4 mmol/L (98-107) L 02/03/19 06:20 Carbon Dioxide 34 mmol/L (22-30) H D 02/03/19 06:20 Anion Gap 12 mmol/L 02/03/19 06:20 BUN 11 mg/dL (9-20) 02/03/19 06:20 Creatinine 0.3 mg/dL (0.8-1.5) L 02/03/19 06:20 Estimated GFR > 60 ml/min 02/03/19 06:20 BUN/Creatinine Ratio 37 % 02/03/19 06:20 Glucose 98 mg/dL (75-100) 02/03/19 06:20 Calcium 7.9 mg/dL (8.4-10.2) L 02/03/19 06:20 Magnesium 1.80 mg/dL (1.7-2.3) 01/29/19 05:13 Iron 7 ug/dL (49-181) L 01/28/19 07:06 TIBC 92 mcg/dL (250-450) L 01/28/19 07:06 % Saturation 7.61 % 01/28/19 07:06 Transferrin 89 mg/dl (180-329) L 01/28/19 07:06 Total Bilirubin 0.40 mg/dL (0.1-1.2) 01/27/19 10:19 AST 23 units/L (5-40) 01/27/19 10:19 ALT 20 units/L (7-56) 01/27/19 10:19 Alkaline Phosphatase 111 units/L (35-129) 01/27/19 10:19 Troponin T < 0.010 ng/mL (0.00-0.029) 01/27/19 10:19 Total Protein 5.9 g/dL (6.3-8.2) L 01/27/19 10:19 Albumin 1.9 g/dL (3.9-5) L 01/27/19 10:19 Albumin/Globulin Ratio 0.5 % 01/27/19 10:19 Vitamin B12 1887 pg/mL (211-911) H 01/28/19 07:06 RBC Folic Acid >1000 ng/mL (>280) 01/28/19 07:06 TSH 8.080 mlU/mL (0.270-4.200) H 01/28/19 07:06 Free T4 0.76 ng/dL (0.76-1.46) 02/03/19 13:46 Thyroxine (T4) 4.3 ug/dL (4.0-12.0) 02/03/19 13:46 Active Medications - Current Medications Current Medications: Generic Name Dose Route Start Last Admin Trade Name Freq PRN Reason Stop Dose Admin Amiodarone HCl 200 mg 02/05/19 14:00 02/06/19 10:36 Cordarone PO 200 mg QDAY JONI Administration Aspirin 81 mg 01/28/19 10:00 02/06/19 10:36 Halfprin Ec PO 81 mg QDAY JONI Administration Cyclobenzaprine HCl 10 mg 01/30/19 08:30 02/04/19 04:15 Flexeril PO 10 mg Q8H PRN Administration Muscle Spasm Diltiazem HCl 30 mg 02/05/19 14:00 02/06/19 19:13 Cardizem PO 30 mg Q6HR JONI Administration Ferrous Sulfate 325 mg 01/28/19 10:00 02/06/19 10:37 Feosol PO 325 mg DAILY JONI Administration Ampicillin Sodium/Sulbactam Sodium 3 gm in 100 mls @ 200 mls/hr 02/06/19 17:00 02/06/19 18:48 Unasyn/Ns 3 Gm/100 Ml IV 200 mls/hr Q6HR JONI Administration Protocol Vancomycin HCl 1,500 mg/ 530 mls @ 333.333 mls/hr 02/07/19 10:00 Sodium Chloride IV Q12HR JONI Levothyroxine Sodium 112 mcg 01/28/19 06:00 02/06/19 06:42 Synthroid PO 112 mcg DAILY@0600 [facility] Administration Metoprolol Tartrate 2.5 mg 01/29/19 12:51 Lopressor IV Q6HR PRN HR>130 Metoprolol Tartrate 25 mg 02/05/19 14:00 02/06/19 10:36 Lopressor PO 25 mg BID JONI Administration Nicotine 21 mg 01/29/19 00:23 02/05/19 23:36 Habitrol TD 21 mg Q24H JONI Administration Pantoprazole Sodium 40 mg 01/28/19 10:00 02/06/19 10:36 Protonix PO 40 mg QDAY JONI Administration Tramadol HCl 50 mg 02/05/19 15:44 02/06/19 20:02 Ultram PO 50 mg Q6H PRN Administration Pain, Moderate (4-6) Nutrition/Malnutrition Assess - Dietary Evaluation Nutrition/Malnutrition Findings: Nutrition Notes Start: 01/28/19 15:47 Freq: Status: Active Protocol: Document 02/03/19 10:06 (Rec: 02/03/19 10:17 [id number]) Co-Sign 02/03/19 10:06 Nutrition Notes Initial or Follow up Reassessment Current Diagnosis Decubitus(Pressure Ulcer), Hypertension Other Pertinent Diagnosis Hypothyroidism, LLE edema, GERD Current Diet cardiac Labs/Tests Na: 136 Cr: 0.3 M.9 Pertinent Medications Reviewed Height 5 ft 11 in Weight 90.6 kg [place] Body Weight (kg) 78.18 BMI 27.8 Subjective/Other Information Patient states appetite is good but doesn't like this facilities food. [facility] Pt reports drinking 100% of ONS BID. Pt denies N/V/D. Pt states UBW: 158#. Percent of energy/protein needs met: 88%/75% #1 Nutrition Diagnosis Inadequate oral intake As Evidenced by Signs and Symptoms pt meeting at least 75% of kcal and pro needs via PO and ONS intake Diagnosis Progress(for reassessment Improved documentation) Is patient on ventilator? No Is Patient Ambulatory and/or Out of Bed No REE-([facility]-confined to bed) 05 Calculation Used for Recommendations [facility] Additional Notes Protein Needs: 109-136g (1.2-1 .5g/kg) Fluid Needs: 1 ml/kcal Nutrition Intervention Change Diet Order: Continue current Add Supplement/Snack (indicate name/kcal Ensure Enlive Vanilla or /protein ) Chocolate BID Provides kCal: 700 Provides Protein (gm) 40 Goal #1 Meet at least 75% of calorie and protein needs via PO and ONS intakes Anticipated Discharge Needs: Cardiac diet Follow-Up By: 02/10/19 Additional Comments F/U: PO and ONS intakes
[2019-02-03] MEDS: ROCEPHIN/NS 2 GM/100 ML 2 GM/100 ML BAG IV SCH (12:14)
[2019-02-03] MEDS ORDERED: CARDIZEM IV ONE (13:00)
[2019-02-03] MEDS: CARDIZEM 100 MG in D5W 80 ML IV SCH (14:56)
[2019-02-03] MEDS: CORDARONE PO SCH (14:57)
[2019-02-04] MEDS: HABITROL TD SCH (00:55)
[2019-02-04] MEDS: ROXICODONE PO PRN ×2 (04:15→18:34)
[2019-02-04] MEDS: FLEXERIL PO PRN (04:15)
[2019-02-04] MEDS: SYNTHROID PO SCH (05:31)
[2019-02-04] MEDS: CARDIZEM 100 MG in D5W 80 ML IV SCH (05:31)
[2019-02-04] MEDS: LOPRESSOR PO SCH ×2 (07:38→18:06)
[2019-02-04] MEDS: CORDARONE PO SCH ×3 (09:48→21:50)
[2019-02-04] MEDS: PROTONIX PO SCH (09:48)
[2019-02-04] MEDS: HALFPRIN EC PO SCH (09:48)
[2019-02-04] MEDS: FEOSOL PO SCH (09:48)
[2019-02-04] MEDS: CARDIZEM PO SCH ×3 (09:50→18:00)
--- NOTE | 2019-02-04 10:05 | Progress Note ---
<CHASE CABRERA - Last Filed: 02/04/19 10:13> Assessment and Plan Assessment and plan: 78 yo man with a history of afib, hypertension, asthma, hypothyroid, recent GIB with Gastric ulcer s/p endoclip repair who presented to ED on with c/o left leg pains and palpitations. He was previously admitted to [facility] approximately one month ago with similar presentation. An echocardiogram performed during previous admission revealed moderate aortic valve calcification with moderate to severe aortic stenosis. Left ventricular systolic function is normal, EF 60%. 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 At the time of my examination pt is resting in bed, and is easily aroused. He is remains on 2L NC. Atrial fibrillation with RVR D/C IV Amiodarone gtt Transitioned to PO Amiodarone IV Diltizam to end today; Started on PO Diltizam Cardiology following and managing Left Leg Pain Doppler 01/28 negative for DVT Vascular/IR recommendation: "The patient has bilateral lower extremity swelling. Additionally, the patient has had extensive surgical repairs to his knees. Ultrasound demonstrates no evidence of DVT however, the patient has bilateral ruptured Ceballos's cyst. We'll consult orthopedic surgery for further evaluation. We'll evaluate patient for venous option with reflux for venous insufficiency which may be contributing to his leg swelling however, optimizing the patient's cardiac output may be most beneficial in reducing his fluid retention." Hypertension Continue Lopressor Continue to monitor BP History of GERD On Protonix Anemia- hx of GI bleed Recent EGD revealed gastric ulcers Hgb on admission 8.6/26.1 Hgb on 02/03/19 9.1/28.5 Continue to monitor DVT PPX On Lovenox full code Disposition Plan: Plans to d/c to SNF History Interval history: Pt desat to 75% on RA. He was placed on 2L NC and sats returned to 92%. There were no acute overnight events. Hospitalist Physical - Physical exam Narrative exam: General appearance: Present: no acute distress - EENT Eyes: Present: PERRL, EOM intact ENT: hearing intact - Neck Neck: Present: supple, normal ROM - Respiratory Respiratory effort: normal Respiratory: bilateral: CTA - Cardiovascular Rhythm: regular Heart Sounds: Present: S1 & S2 - Extremities Extremities: pulses intact, No edema Extremity abnormal: deformity Peripheral Pulses: within normal limits - Abdominal General gastrointestinal: Present: soft, non-tender Male genitourinary: Present: deferred - Rectal Rectal Exam: deferred - Integumentary Integumentary: Present: warm, dry - Musculoskeletal Musculoskeletal: strength equal bilaterally - Psychiatric Psychiatric: appropriate mood/affect - Neurologic Neurologic: CNII-XII intac - Constitutional Vitals: Temp Pulse Resp BP Pulse Ox 98.0 F 122 H 20 112/69 96 02/04/19 08:28 02/04/19 09:50 02/04/19 08:28 02/04/19 09:50 02/04/19 08:28 General appearance: Present: no acute distress Results - Labs CBC & Chem 7: 02/03/19 06:20 02/03/19 06:20 Labs: Laboratory Last Values WBC 18.0 K/mm3 (4.5-11.0) H 02/03/19 06:20 RBC 3.01 M/mm3 (3.65-5.03) L 02/03/19 06:20 Hgb 9.1 gm/dl (11.8-15.2) L 02/03/19 06:20 Hct 28.5 % (35.5-45.6) L 02/03/19 06:20 MCV 95 fl (84-94) H 02/03/19 06:20 MCH 30 pg (28-32) 02/03/19 06:20 MCHC 32 % (32-34) 02/03/19 06:20 RDW 19.0 % (13.2-15.2) H 02/03/19 06:20 Plt Count 378 K/mm3 (140-440) 02/03/19 06:20 Add Manual Diff Complete 01/27/19 10:23 Total Counted 100 01/27/19 10:23 Seg Neutrophils % Chemical Packager 01/27/19 10:23 Seg Neuts % (Manual) 90.0 % (40.0-70.0) H 01/27/19 10:23 Band Neutrophils % 0 % 01/27/19 10:23 Lymphocytes % (Manual) 7.0 % (13.4-35.0) L 01/27/19 10:23 Reactive Lymphs % (Man) 0 % 01/27/19 10:23 Monocytes % (Manual) 3.0 % (0.0-7.3) 01/27/19 10:23 Eosinophils % (Manual) 0 % (0.0-4.3) 01/27/19 10:23 Metamyelocytes % 0 % 01/27/19 10:23 Myelocytes % 0 % 01/27/19 10:23 Promyelocytes % 0 % 01/27/19 10:23 Blast Cells % 0 % 01/27/19 10:23 Nucleated RBC % Not Reportable 01/27/19 10:23 Seg Neutrophils # Man 10.7 K/mm3 (1.8-7.7) H 01/27/19 10:23 Band Neutrophils # 0.0 K/mm3 01/27/19 10:23 Lymphocytes # (Manual) 0.8 K/mm3 (1.2-5.4) L 01/27/19 10:23 Abs React Lymphs (Man) 0.0 K/mm3 01/27/19 10:23 Monocytes # (Manual) 0.4 K/mm3 (0.0-0.8) 01/27/19 10:23 Eosinophils # (Manual) 0.0 K/mm3 (0.0-0.4) 01/27/19 10:23 Basophils # (Manual) 0.0 K/mm3 (0.0-0.1) 01/27/19 10:23 Metamyelocytes # 0.0 K/mm3 01/27/19 10:23 Myelocytes # 0.0 K/mm3 01/27/19 10:23 Promyelocytes # 0.0 K/mm3 01/27/19 10:23 Blast Cells # 0.0 K/mm3 01/27/19 10:23 WBC Morphology Not Reportable 01/27/19 10:23 Hypersegmented Neuts Not Reportable 01/27/19 10:23 Hyposegmented Neuts Not Reportable 01/27/19 10:23 Hypogranular Neuts Not Reportable 01/27/19 10:23 Smudge Cells Not Reportable 01/27/19 10:23 Toxic Granulation Not Reportable 01/27/19 10:23 Toxic Vacuolation Not Reportable 01/27/19 10:23 Dohle Bodies Not Reportable 01/27/19 10:23 Pelger-Huet Anomaly Not Reportable 01/27/19 10:23 Eugenio Rods Not Reportable 01/27/19 10:23 Platelet Estimate Consistent w auto 01/27/19 10:23 Clumped Platelets Not Reportable 01/27/19 10:23 Plt Clumps, EDTA Not Reportable 01/27/19 10:23 Large Platelets Not Reportable 01/27/19 10:23 Giant Platelets Rare 01/27/19 10:23 Platelet Satelliting Not Reportable 01/27/19 10:23 Plt Morphology Comment Not Reportable 01/27/19 10:23 RBC Morphology Not Reportable 01/27/19 10:23 Dimorphic RBCs Not Reportable 01/27/19 10:23 Polychromasia Not Reportable 01/27/19 10:23 Hypochromasia Not Reportable 01/27/19 10:23 Poikilocytosis Few 01/27/19 10:23 Anisocytosis Few 01/27/19 10:23 Microcytosis Not Reportable 01/27/19 10:23 Macrocytosis Not Reportable 01/27/19 10:23 Spherocytes Not Reportable 01/27/19 10:23 Pappenheimer Bodies Not Reportable 01/27/19 10:23 Sickle Cells Not Reportable 01/27/19 10:23 Target Cells Not Reportable 01/27/19 10:23 Tear Drop Cells Not Reportable 01/27/19 10:23 Ovalocytes Not Reportable 01/27/19 10:23 Helmet Cells Not Reportable 01/27/19 10:23 Belle-Slater Bodies Not Reportable 01/27/19 10:23 [place] Rings Not Reportable 01/27/19 10:23 Walsh Cells Not Reportable 01/27/19 10:23 Bite Cells Not Reportable 01/27/19 10:23 Crenated Cell Not Reportable 01/27/19 10:23 Elliptocytes Rare 01/27/19 10:23 Acanthocytes (Spur) Not Reportable 01/27/19 10:23 Rouleaux Not Reportable 01/27/19 10:23 Hemoglobin C Crystals Not Reportable 01/27/19 10:23 Schistocytes Not Reportable 01/27/19 10:23 Malaria parasites Not Reportable 01/27/19 10:23 Derick Bodies Not Reportable 01/27/19 10:23 Hem Pathologist Commnt No 01/27/19 10:23 Sodium 136 mmol/L (137-145) L 02/03/19 06:20 Potassium 4.8 mmol/L (3.6-5.0) 02/03/19 06:20 Chloride 94.4 mmol/L (98-107) L 02/03/19 06:20 Carbon Dioxide 34 mmol/L (22-30) H D 02/03/19 06:20 Anion Gap 12 mmol/L 02/03/19 06:20 BUN 11 mg/dL (9-20) 02/03/19 06:20 Creatinine 0.3 mg/dL (0.8-1.5) L 02/03/19 06:20 Estimated GFR > 60 ml/min 02/03/19 06:20 BUN/Creatinine Ratio 37 % 02/03/19 06:20 Glucose 98 mg/dL (75-100) 02/03/19 06:20 Calcium 7.9 mg/dL (8.4-10.2) L 02/03/19 06:20 Magnesium 1.80 mg/dL (1.7-2.3) 01/29/19 05:13 Iron 7 ug/dL (49-181) L 01/28/19 07:06 TIBC 92 mcg/dL (250-450) L 01/28/19 07:06 % Saturation 7.61 % 01/28/19 07:06 Transferrin 89 mg/dl (180-329) L 01/28/19 07:06 Total Bilirubin 0.40 mg/dL (0.1-1.2) 01/27/19 10:19 AST 23 units/L (5-40) 01/27/19 10:19 ALT 20 units/L (7-56) 01/27/19 10:19 Alkaline Phosphatase 111 units/L (35-129) 01/27/19 10:19 Troponin T < 0.010 ng/mL (0.00-0.029) 01/27/19 10:19 Total Protein 5.9 g/dL (6.3-8.2) L 01/27/19 10:19 Albumin 1.9 g/dL (3.9-5) L 01/27/19 10:19 Albumin/Globulin Ratio 0.5 % 01/27/19 10:19 Vitamin B12 1887 pg/mL (211-911) H 01/28/19 07:06 RBC Folic Acid >1000 ng/mL (>280) 01/28/19 07:06 TSH 8.080 mlU/mL (0.270-4.200) H 01/28/19 07:06 Free T4 0.76 ng/dL (0.76-1.46) 02/03/19 13:46 Thyroxine (T4) 4.3 ug/dL (4.0-12.0) 02/03/19 13:46 Active Medications - Current Medications Current Medications: Generic Name Dose Route Start Last Admin Trade Name Freq PRN Reason Stop Dose Admin Amiodarone HCl 200 mg 02/03/19 14:00 02/04/19 09:48 Cordarone PO 200 mg QDAY JONI Administration Aspirin 81 mg 01/28/19 10:00 02/04/19 09:48 Halfprin Ec PO 81 mg QDAY JONI Administration Cyclobenzaprine HCl 10 mg 01/30/19 08:30 02/04/19 04:15 Flexeril PO 10 mg Q8H PRN Administration Muscle Spasm Diltiazem HCl 60 mg 02/04/19 10:00 02/04/19 09:50 Cardizem PO 60 mg Q6HR JONI Administration Ferrous Sulfate 325 mg 01/28/19 10:00 02/04/19 09:48 Feosol PO 325 mg DAILY JONI Administration Ceftriaxone Sodium 2 gm in 100 mls @ 200 mls/hr 01/30/19 12:00 02/03/19 12:14 Rocephin/Ns 2 Gm/100 Ml IV 200 mls/hr Q24H JONI Administration Protocol Diltiazem HCl 100 mg/ Dextrose 100 mls @ 5 mls/hr 02/03/19 13:00 02/04/19 05:31 IV 02/04/19 12:59 5 mg/hr DIRECT JONI 5 mls/hr Administration Protocol 5 MG/HR Levothyroxine Sodium 112 mcg 01/28/19 06:00 02/04/19 05:31 Synthroid PO 112 mcg DAILY@0600 JONI Administration Metoprolol Tartrate 2.5 mg 01/29/19 12:51 Lopressor IV Q6HR PRN HR>130 Metoprolol Tartrate 50 mg 01/30/19 18:00 02/04/19 07:38 Lopressor PO 50 mg Q12H JONI Administration Nicotine 21 mg 01/29/19 00:23 02/04/19 00:55 Habitrol TD 21 mg Q24H JONI Administration Oxycodone HCl 10 mg 01/29/19 13:29 02/04/19 04:15 Roxicodone PO 10 mg Q6H PRN Administration Pain , Severe (7-10) Pantoprazole Sodium 40 mg 01/28/19 10:00 02/04/19 09:48 Protonix PO 40 mg QDAY JONI Administration Nutrition/Malnutrition Assess - Dietary Evaluation Nutrition/Malnutrition Findings: Nutrition Notes Start: 01/28/19 15:47 Freq: Status: Active Protocol: Document 02/03/19 10:06 (Rec: 02/03/19 10:17 [id number]) Co-Sign 02/03/19 10:06 LP Nutrition Notes Initial or Follow up Reassessment Current Diagnosis Decubitus(Pressure Ulcer), Hypertension Other Pertinent Diagnosis Hypothyroidism, LLE edema, GERD Current Diet cardiac Labs/Tests Na: 136 Cr: 0.3 M.9 Pertinent Medications Reviewed Height 5 ft 11 in Weight 90.6 kg [place] Body Weight (kg) 78.18 BMI 27.8 Subjective/Other Information Patient states appetite is good but doesn't like this facilities food. Pt reports eating 50% of meals during hosiptal stay. Pt reports drinking 100% of ONS BID. Pt denies N/V/D. Pt states UBW: 158#. Percent of energy/protein needs met: 88%/75% #1 Nutrition Diagnosis Inadequate oral intake As Evidenced by Signs and Symptoms pt meeting at least 75% of kcal and pro needs via PO and ONS intake Diagnosis Progress(for reassessment Improved documentation) Is patient on ventilator? No Is Patient Ambulatory and/or Out of Bed No REE-([facility]-confined to bed) 05 Calculation Used for Recommendations [facility] Additional Notes Protein Needs: 109-136g (1.2-1 .5g/kg) Fluid Needs: 1 ml/kcal Nutrition Intervention Change Diet Order: Continue current Add Supplement/Snack (indicate name/kcal Ensure Enlive Vanilla or /protein ) Chocolate BID Provides kCal: 700 Provides Protein (gm) 40 Goal #1 Meet at least 75% of calorie and protein needs via PO and ONS intakes Anticipated Discharge Needs: Cardiac diet Follow-Up By: 02/10/19 Additional Comments F/U: PO and ONS intakes <JOSHUA KIRK M - Last Filed: 02/06/19 23:12> Assessment and Plan Assessment and plan: I saw and evaluated the patient. I agree with the findings and the plan of care as documented in the Nurse Practitioner's~note, with the following corrections and additions. correction There was an acute event overnights, namely acute hypoxia The patient's lungs show basilar crackles He's now an acute CHF exacerbation, he has been started on IV lasix Hospitalist Physical - Constitutional Vitals: Temp Pulse Resp BP Pulse Ox 98.4 F 67 18 106/51 97 02/06/19 19:31 02/06/19 19:31 02/06/19 19:31 02/06/19 19:31 02/06/19 19:31 Results - Labs CBC & Chem 7: 02/03/19 06:20 02/03/19 06:20 Labs: Laboratory Last Values WBC 18.0 K/mm3 (4.5-11.0) H 02/03/19 06:20 RBC 3.01 M/mm3 (3.65-5.03) L 02/03/19 06:20 Hgb 9.1 gm/dl (11.8-15.2) L 02/03/19 06:20 Hct 28.5 % (35.5-45.6) L 02/03/19 06:20 MCV 95 fl (84-94) H 02/03/19 06:20 MCH 30 pg (28-32) 02/03/19 06:20 MCHC 32 % (32-34) 02/03/19 06:20 RDW 19.0 % (13.2-15.2) H 02/03/19 06:20 Plt Count 378 K/mm3 (140-440) 02/03/19 06:20 Add Manual Diff Complete 01/27/19 10:23 Total Counted 100 01/27/19 10:23 Seg Neutrophils % Chemical Packager 01/27/19 10:23 Seg Neuts % (Manual) 90.0 % (40.0-70.0) H 01/27/19 10:23 Band Neutrophils % 0 % 01/27/19 10:23 Lymphocytes % (Manual) 7.0 % (13.4-35.0) L 01/27/19 10:23 Reactive Lymphs % (Man) 0 % 01/27/19 10:23 Monocytes % (Manual) 3.0 % (0.0-7.3) 01/27/19 10:23 Eosinophils % (Manual) 0 % (0.0-4.3) 01/27/19 10:23 Metamyelocytes % 0 % 01/27/19 10:23 Myelocytes % 0 % 01/27/19 10:23 Promyelocytes % 0 % 01/27/19 10:23 Blast Cells % 0 % 01/27/19 10:23 Nucleated RBC % Not Reportable 01/27/19 10:23 Seg Neutrophils # Man 10.7 K/mm3 (1.8-7.7) H 01/27/19 10:23 Band Neutrophils # 0.0 K/mm3 01/27/19 10:23 Lymphocytes # (Manual) 0.8 K/mm3 (1.2-5.4) L 01/27/19 10:23 Abs React Lymphs (Man) 0.0 K/mm3 01/27/19 10:23 Monocytes # (Manual) 0.4 K/mm3 (0.0-0.8) 01/27/19 10:23 Eosinophils # (Manual) 0.0 K/mm3 (0.0-0.4) 01/27/19 10:23 Basophils # (Manual) 0.0 K/mm3 (0.0-0.1) 01/27/19 10:23 Metamyelocytes # 0.0 K/mm3 01/27/19 10:23 Myelocytes # 0.0 K/mm3 01/27/19 10:23 Promyelocytes # 0.0 K/mm3 01/27/19 10:23 Blast Cells # 0.0 K/mm3 01/27/19 10:23 WBC Morphology Not Reportable 01/27/19 10:23 Hypersegmented Neuts Not Reportable 01/27/19 10:23 Hyposegmented Neuts Not Reportable 01/27/19 10:23 Hypogranular Neuts Not Reportable 01/27/19 10:23 Smudge Cells Not Reportable 01/27/19 10:23 Toxic Granulation Not Reportable 01/27/19 10:23 Toxic Vacuolation Not Reportable 01/27/19 10:23 Dohle Bodies Not Reportable 01/27/19 10:23 Pelger-Huet Anomaly Not Reportable 01/27/19 10:23 Eugenio Rods Not Reportable 01/27/19 10:23 Platelet Estimate Consistent w auto 01/27/19 10:23 Clumped Platelets Not Reportable 01/27/19 10:23 Plt Clumps, EDTA Not Reportable 01/27/19 10:23 Large Platelets Not Reportable 01/27/19 10:23 Giant Platelets Rare 01/27/19 10:23 Platelet Satelliting Not Reportable 01/27/19 10:23 Plt Morphology Comment Not Reportable 01/27/19 10:23 RBC Morphology Not Reportable 01/27/19 10:23 Dimorphic RBCs Not Reportable 01/27/19 10:23 Polychromasia Not Reportable 01/27/19 10:23 Hypochromasia Not Reportable 01/27/19 10:23 Poikilocytosis Few 01/27/19 10:23 Anisocytosis Few 01/27/19 10:23 Microcytosis Not Reportable 01/27/19 10:23 Macrocytosis Not Reportable 01/27/19 10:23 Spherocytes Not Reportable 01/27/19 10:23 Pappenheimer Bodies Not Reportable 01/27/19 10:23 Sickle Cells Not Reportable 01/27/19 10:23 Target Cells Not Reportable 01/27/19 10:23 Tear Drop Cells Not Reportable 01/27/19 10:23 Ovalocytes Not Reportable 01/27/19 10:23 Helmet Cells Not Reportable 01/27/19 10:23 Belle-Slater Bodies Not Reportable 01/27/19 10:23 [place] Rings Not Reportable 01/27/19 10:23 Jame Cells Not Reportable 01/27/19 10:23 Bite Cells Not Reportable 01/27/19 10:23 Crenated Cell Not Reportable 01/27/19 10:23 Elliptocytes Rare 01/27/19 10:23 Acanthocytes (Spur) Not Reportable 01/27/19 10:23 Rouleaux Not Reportable 01/27/19 10:23 Hemoglobin C Crystals Not Reportable 01/27/19 10:23 Schistocytes Not Reportable 01/27/19 10:23 Malaria parasites Not Reportable 01/27/19 10:23 Derick Bodies Not Reportable 01/27/19 10:23 Hem Pathologist Commnt No 01/27/19 10:23 Sodium 136 mmol/L (137-145) L 02/03/19 06:20 Potassium 4.8 mmol/L (3.6-5.0) 02/03/19 06:20 Chloride 94.4 mmol/L (98-107) L 02/03/19 06:20 Carbon Dioxide 34 mmol/L (22-30) H D 02/03/19 06:20 Anion Gap 12 mmol/L 02/03/19 06:20 BUN 11 mg/dL (9-20) 02/03/19 06:20 Creatinine 0.3 mg/dL (0.8-1.5) L 02/03/19 06:20 Estimated GFR > 60 ml/min 02/03/19 06:20 BUN/Creatinine Ratio 37 % 02/03/19 06:20 Glucose 98 mg/dL (75-100) 02/03/19 06:20 Calcium 7.9 mg/dL (8.4-10.2) L 02/03/19 06:20 Magnesium 1.80 mg/dL (1.7-2.3) 01/29/19 05:13 Iron 7 ug/dL (49-181) L 01/28/19 07:06 TIBC 92 mcg/dL (250-450) L 01/28/19 07:06 % Saturation 7.61 % 01/28/19 07:06 Transferrin 89 mg/dl (180-329) L 01/28/19 07:06 Total Bilirubin 0.40 mg/dL (0.1-1.2) 01/27/19 10:19 AST 23 units/L (5-40) 01/27/19 10:19 ALT 20 units/L (7-56) 01/27/19 10:19 Alkaline Phosphatase 111 units/L (35-129) 01/27/19 10:19 Troponin T < 0.010 ng/mL (0.00-0.029) 01/27/19 10:19 Total Protein 5.9 g/dL (6.3-8.2) L 01/27/19 10:19 Albumin 1.9 g/dL (3.9-5) L 01/27/19 10:19 Albumin/Globulin Ratio 0.5 % 01/27/19 10:19 Vitamin B12 1887 pg/mL (211-911) H 01/28/19 07:06 RBC Folic Acid >1000 ng/mL (>280) 01/28/19 07:06 TSH 8.080 mlU/mL (0.270-4.200) H 01/28/19 07:06 Free T4 0.76 ng/dL (0.76-1.46) 02/03/19 13:46 Thyroxine (T4) 4.3 ug/dL (4.0-12.0) 02/03/19 13:46 Active Medications - Current Medications Current Medications: Generic Name Dose Route Start Last Admin Trade Name Freq PRN Reason Stop Dose Admin Amiodarone HCl 200 mg 02/05/19 14:00 02/06/19 10:36 Cordarone PO 200 mg QDAY JONI Administration Aspirin 81 mg 01/28/19 10:00 02/06/19 10:36 Halfprin Ec PO 81 mg QDAY JONI Administration Cyclobenzaprine HCl 10 mg 01/30/19 08:30 02/04/19 04:15 Flexeril PO 10 mg Q8H PRN Administration Muscle Spasm Diltiazem HCl 30 mg 02/05/19 14:00 02/06/19 19:13 Cardizem PO 30 mg Q6HR JONI Administration Ferrous Sulfate 325 mg 01/28/19 10:00 02/06/19 10:37 Feosol PO 325 mg DAILY JONI Administration Ampicillin Sodium/Sulbactam Sodium 3 gm in 100 mls @ 200 mls/hr 02/06/19 17:00 02/06/19 18:48 Unasyn/Ns 3 Gm/100 Ml IV 200 mls/hr Q6HR JONI Administration Protocol Vancomycin HCl 1,500 mg/ 530 mls @ 333.333 mls/hr 02/07/19 10:00 Sodium Chloride IV Q12HR JONI Levothyroxine Sodium 112 mcg 01/28/19 06:00 02/06/19 06:42 Synthroid PO 112 mcg DAILY@0600 JONI Administration Metoprolol Tartrate 2.5 mg 01/29/19 12:51 Lopressor IV Q6HR PRN HR>130 Metoprolol Tartrate 25 mg 02/05/19 14:00 02/06/19 10:36 Lopressor PO 25 mg BID JONI Administration Nicotine 21 mg 01/29/19 00:23 02/05/19 23:36 Habitrol TD 21 mg Q24H JONI Administration Pantoprazole Sodium 40 mg 01/28/19 10:00 02/06/19 10:36 Protonix PO 40 mg QDAY JONI Administration Tramadol HCl 50 mg 02/05/19 15:44 02/06/19 20:02 Ultram PO 50 mg Q6H PRN Administration Pain, Moderate (4-6) Nutrition/Malnutrition Assess - Dietary Evaluation Nutrition/Malnutrition Findings: Nutrition Notes Start: 01/28/19 15:47 Freq: Status: Active Protocol: Document 02/03/19 10:06 (Rec: 02/03/19 10:17 [id number]) Co-Sign 02/03/19 10:06 LP Nutrition Notes Initial or Follow up Reassessment Current Diagnosis Decubitus(Pressure Ulcer), Hypertension Other Pertinent Diagnosis Hypothyroidism, LLE edema, GERD Current Diet cardiac Labs/Tests Na: 136 Cr: 0.3 M.9 Pertinent Medications Reviewed Height 5 ft 11 in Weight 90.6 kg [place] Body Weight (kg) 78.18 BMI 27.8 Subjective/Other Information Patient states appetite is good but doesn't like this facilities food. Pt reports eating 50% of meals during hosiptal stay. Pt reports drinking 100% of ONS BID. Pt denies N/V/D. Pt states UBW: 158#. Percent of energy/protein needs met: 88%/75% #1 Nutrition Diagnosis Inadequate oral intake As Evidenced by Signs and Symptoms pt meeting at least 75% of kcal and pro needs via PO and ONS intake Diagnosis Progress(for reassessment Improved documentation) Is patient on ventilator? No Is Patient Ambulatory and/or Out of Bed No REE-([facility]-confined to bed) 05 Calculation Used for Recommendations [facility] Additional Notes Protein Needs: 109-136g (1.2-1 .5g/kg) Fluid Needs: 1 ml/kcal Nutrition Intervention Change Diet Order: Continue current Add Supplement/Snack (indicate name/kcal Ensure Enlive Vanilla or /protein ) Chocolate BID Provides kCal: 700 Provides Protein (gm) 40 Goal #1 Meet at least 75% of calorie and protein needs via PO and ONS intakes Anticipated Discharge Needs: Cardiac diet Follow-Up By: 02/10/19 Additional Comments F/U: PO and ONS intakes
--- NOTE | 2019-02-04 12:03 | Progress Note ---
Assessment and Plan Generalized pain -chief complaint Atrial fibrillation, paroxysmal on amiodarone and metoprolol patient is not a candidate for oral anticoagulation s/t severe anemia and recent GI bleed. Unilateral LE edema LE venous doppler reports no evidence of DVT Recent GI bleed recent EGD workup revealed gastric ulcer Chronic Anemia Hypothyroidism Hyponatremia Elevated liver transaminase Chronic lung disease Tobacco abuse Ascending thoracic aorta aneurysm measuring 5cm An echocardiogram 12/2018 reveal moderate aortic valve calcification with moderate to severe aortic stenosis. Left ventricular systolic function is normal, EF 60%. Small fixed apical wall defect, no reversible ischemia on MPI done 01/2018. Continue intravenous Cardizem for rate control, after 24 hours transition to oral Cardizem. We'll continue metoprolol and oral amiodarone. Subjective Date of service: 02/04/19 Interval history: Patient has no complaints. Afib with a rapid ventricular rate. Objective Vital Signs Temp Pulse Resp BP Pulse Ox 02/04/19 09:50 122 H 112/69 02/04/19 08:28 98.0 F 120 H 20 112/69 96 02/04/19 06:21 114 H 92 02/04/19 04:26 97.6 F 121 H 20 106/64 75 L 02/03/19 20:49 95 02/03/19 20:00 122 H 02/03/19 19:18 98.1 F 122 H 18 110/68 98 02/03/19 16:33 98.4 F 122 H 20 116/74 96 02/03/19 15:05 117 H 109/70 02/03/19 14:56 117 H 109/70 - Physical Examination General: No Apparent Distress HEENT: Positive: PERRL Neck: Positive: trachea midline Cardiac: Positive: irregularly irregular Lungs: Positive: Decreased Breath Sounds, Wheezes Neuro: Positive: Grossly Intact, Weakness
[2019-02-04] MEDS: ROCEPHIN/NS 2 GM/100 ML 2 GM/100 ML BAG IV SCH (12:40)
[2019-02-04] MEDS: LASIX IV SCH ×2 (15:48→21:53)
[2019-02-05] MEDS: CARDIZEM PO SCH ×5 (00:59→17:48)
[2019-02-05] MEDS: ROXICODONE PO PRN (01:00)
[2019-02-05] MEDS: HABITROL TD SCH ×2 (01:08→23:36)
[2019-02-05] MEDS: SYNTHROID PO SCH (06:12)
[2019-02-05] MEDS: LOPRESSOR PO SCH ×3 (06:12→22:50)
[2019-02-05] MEDS: FEOSOL PO SCH (09:49)
[2019-02-05] MEDS: PROTONIX PO SCH (09:49)
[2019-02-05] MEDS: CORDARONE PO SCH ×2 (09:50→14:30)
[2019-02-05] MEDS: HALFPRIN EC PO SCH (09:50)
--- NOTE | 2019-02-05 12:25 | Progress Note ---
Assessment and Plan Generalized pain -chief complaint Atrial fibrillation, paroxysmal on amiodarone and metoprolol patient is not a candidate for oral anticoagulation s/t severe anemia and recent GI bleed. Unilateral LE edema LE venous doppler reports no evidence of DVT Recent GI bleed recent EGD workup revealed gastric ulcer Leukocytosis Chronic Anemia Hypothyroidism Hyponatremia Elevated liver transaminase Chronic lung disease Tobacco abuse Ascending thoracic aorta aneurysm measuring 5cm An echocardiogram 12/2018 reveal moderate aortic valve calcification with moderate to severe aortic stenosis. Left ventricular systolic function is normal, EF 60%. Small fixed apical wall defect, no reversible ischemia on MPI done 01/2018. Continue diltiazem, metoprolol and amiodarone. We will add holding parameters for metoprolol. Subjective Date of service: 02/05/19 Interval history: Patient has no complaints. Borderline low normal blood pressures overnight. Sinus rhythm on telemetry. Objective Vital Signs Temp Pulse Pulse Pulse Resp BP BP 02/05/19 10:12 62 18 02/05/19 09:47 02/05/19 09:10 97.5 F L 73 18 119/53 02/05/19 06:12 66 105/50 02/05/19 06:11 66 105/50 02/05/19 04:01 97.8 F 63 20 105/53 02/05/19 04:00 66 02/05/19 00:59 89 120/52 02/04/19 23:06 97.3 F L 90 20 120/52 02/04/19 23:00 70 70 20 02/04/19 21:50 70 92/55 02/04/19 21:48 02/04/19 20:00 89 02/04/19 19:35 97.3 F L 52 L 20 99/52 02/04/19 18:34 20 02/04/19 18:06 124 H 111/65 02/04/19 16:49 98.2 F 127 H 16 111/65 02/04/19 14:51 98.3 F 118 H 20 94/52 Pulse Ox 02/05/19 10:12 02/05/19 09:47 99 02/05/19 09:10 90 02/05/19 06:12 02/05/19 06:11 02/05/19 04:01 94 02/05/19 04:00 02/05/19 00:59 02/04/19 23:06 96 02/04/19 23:00 02/04/19 21:50 02/04/19 21:48 97 02/04/19 20:00 02/04/19 19:35 94 02/04/19 18:34 02/04/19 18:06 02/04/19 16:49 95 02/04/19 14:51 91 - Physical Examination General: No Apparent Distress HEENT: Positive: PERRL Neck: Positive: trachea midline Cardiac: Positive: Reg Rate and Rhythm Lungs: Positive: Decreased Breath Sounds, Wheezes Neuro: Positive: Grossly Intact, Weakness
--- NOTE | 2019-02-05 13:10 | Progress Note ---
<CHASE CABRERA - Last Filed: 02/05/19 13:11> Assessment and Plan Assessment and plan: 78 yo man with a history of afib, hypertension, asthma, hypothyroid, recent GIB with Gastric ulcer s/p endoclip repair who presented to ED on with c/o left leg pains and palpitations. He was previously admitted to [facility] approximately one month ago with similar presentation. An echocardiogram performed during previous admission revealed moderate aortic valve calcification with moderate to severe aortic stenosis. Left ventricular systolic function is normal, EF 60%. 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 Pt continues to experience A-Fib RVR with periods of conversion to SR. Amiodarone and Cardizem drips are off and he is on PO Amiodarone and Cardizem now. At the time of my examination pt is in SR. Overnight he had a few borderline low BP readings. His Cardizem and Lopressor was held. Atrial fibrillation with RVR D/C IV Amiodarone gtt Transitioned to PO Amiodarone IV Diltizam ended on 02/04 Continue PO Diltizam Cardiology following and managing Left Leg Pain Doppler 01/28 negative for DVT Vascular/IR recommendation: "The patient has bilateral lower extremity swelling. Additionally, the patient has had extensive surgical repairs to his knees. Ultrasound demonstrates no evidence of DVT however, the patient has bilateral ruptured Ceballos's cyst. We'll consult orthopedic surgery for further evaluation. We'll evaluate patient for venous option with reflux for venous insufficiency which may be contributing to his leg swelling however, optimizing the patient's cardiac output may be most beneficial in reducing his fluid retention." Hypertension Continue Lopressor Continue to monitor BP History of GERD On Protonix Anemia- hx of GI bleed Recent EGD revealed gastric ulcers Hgb on admission 8.6/26.1 Hgb on 02/03/19 9.1/28.5 Continue to monitor Chronic Pain Continue pain management Decreased Roxicodone to 5mg DVT PPX On Lovenox full code History Interval history: Pt had a few borderline low BP reading last night subsequently Cardizem and Lopressor was held by nurse. There were no acute overnight events. Hospitalist Physical - Physical exam Narrative exam: General appearance: Present: no acute distress - EENT Eyes: Present: PERRL, EOM intact ENT: hearing intact - Neck Neck: Present: supple, normal ROM - Respiratory Respiratory effort: normal Respiratory: bilateral: CTA - Cardiovascular Rhythm: regular Heart Sounds: Present: S1 & S2 - Extremities Extremities: pulses intact, No edema Extremity abnormal: deformity Peripheral Pulses: within normal limits - Abdominal General gastrointestinal: Present: soft, non-tender Male genitourinary: Present: deferred - Rectal Rectal Exam: deferred - Integumentary Integumentary: Present: warm, dry - Musculoskeletal Musculoskeletal: strength equal bilaterally - Psychiatric Psychiatric: appropriate mood/affect - Neurologic Neurologic: CNII-XII intac - Constitutional Vitals: Temp Pulse Resp BP Pulse Ox 97.5 F L 74 18 119/53 99 02/05/19 09:10 02/05/19 12:00 02/05/19 10:12 02/05/19 09:10 02/05/19 09:47 General appearance: Present: no acute distress Results - Labs CBC & Chem 7: 02/03/19 06:20 02/03/19 06:20 Labs: Laboratory Last Values WBC 18.0 K/mm3 (4.5-11.0) H 02/03/19 06:20 RBC 3.01 M/mm3 (3.65-5.03) L 02/03/19 06:20 Hgb 9.1 gm/dl (11.8-15.2) L 02/03/19 06:20 Hct 28.5 % (35.5-45.6) L 02/03/19 06:20 MCV 95 fl (84-94) H 02/03/19 06:20 MCH 30 pg (28-32) 02/03/19 06:20 MCHC 32 % (32-34) 02/03/19 06:20 RDW 19.0 % (13.2-15.2) H 02/03/19 06:20 Plt Count 378 K/mm3 (140-440) 02/03/19 06:20 Add Manual Diff Complete 01/27/19 10:23 Total Counted 100 01/27/19 10:23 Seg Neutrophils % Structural Iron Worker 01/27/19 10:23 Seg Neuts % (Manual) 90.0 % (40.0-70.0) H 01/27/19 10:23 Band Neutrophils % 0 % 01/27/19 10:23 Lymphocytes % (Manual) 7.0 % (13.4-35.0) L 01/27/19 10:23 Reactive Lymphs % (Man) 0 % 01/27/19 10:23 Monocytes % (Manual) 3.0 % (0.0-7.3) 01/27/19 10:23 Eosinophils % (Manual) 0 % (0.0-4.3) 01/27/19 10:23 Metamyelocytes % 0 % 01/27/19 10:23 Myelocytes % 0 % 01/27/19 10:23 Promyelocytes % 0 % 01/27/19 10:23 Blast Cells % 0 % 01/27/19 10:23 Nucleated RBC % Not Reportable 01/27/19 10:23 Seg Neutrophils # Man 10.7 K/mm3 (1.8-7.7) H 01/27/19 10:23 Band Neutrophils # 0.0 K/mm3 01/27/19 10:23 Lymphocytes # (Manual) 0.8 K/mm3 (1.2-5.4) L 01/27/19 10:23 Abs React Lymphs (Man) 0.0 K/mm3 01/27/19 10:23 Monocytes # (Manual) 0.4 K/mm3 (0.0-0.8) 01/27/19 10:23 Eosinophils # (Manual) 0.0 K/mm3 (0.0-0.4) 01/27/19 10:23 Basophils # (Manual) 0.0 K/mm3 (0.0-0.1) 01/27/19 10:23 Metamyelocytes # 0.0 K/mm3 01/27/19 10:23 Myelocytes # 0.0 K/mm3 01/27/19 10:23 Promyelocytes # 0.0 K/mm3 01/27/19 10:23 Blast Cells # 0.0 K/mm3 01/27/19 10:23 WBC Morphology Not Reportable 01/27/19 10:23 Hypersegmented Neuts Not Reportable 01/27/19 10:23 Hyposegmented Neuts Not Reportable 01/27/19 10:23 Hypogranular Neuts Not Reportable 01/27/19 10:23 Smudge Cells Not Reportable 01/27/19 10:23 Toxic Granulation Not Reportable 01/27/19 10:23 Toxic Vacuolation Not Reportable 01/27/19 10:23 Dohle Bodies Not Reportable 01/27/19 10:23 Pelger-Huet Anomaly Not Reportable 01/27/19 10:23 Eugenio Rods Not Reportable 01/27/19 10:23 Platelet Estimate Consistent w auto 01/27/19 10:23 Clumped Platelets Not Reportable 01/27/19 10:23 Plt Clumps, EDTA Not Reportable 01/27/19 10:23 Large Platelets Not Reportable 01/27/19 10:23 Giant Platelets Rare 01/27/19 10:23 Platelet Satelliting Not Reportable 01/27/19 10:23 Plt Morphology Comment Not Reportable 01/27/19 10:23 RBC Morphology Not Reportable 01/27/19 10:23 Dimorphic RBCs Not Reportable 01/27/19 10:23 Polychromasia Not Reportable 01/27/19 10:23 Hypochromasia Not Reportable 01/27/19 10:23 Poikilocytosis Few 01/27/19 10:23 Anisocytosis Few 01/27/19 10:23 Microcytosis Not Reportable 01/27/19 10:23 Macrocytosis Not Reportable 01/27/19 10:23 Spherocytes Not Reportable 01/27/19 10:23 Pappenheimer Bodies Not Reportable 01/27/19 10:23 Sickle Cells Not Reportable 01/27/19 10:23 Target Cells Not Reportable 01/27/19 10:23 Tear Drop Cells Not Reportable 01/27/19 10:23 Ovalocytes Not Reportable 01/27/19 10:23 Helmet Cells Not Reportable 01/27/19 10:23 [place] Bodies Not Reportable 01/27/19 10:23 [place] Rings Not Reportable 01/27/19 10:23 [place] Cells Not Reportable 01/27/19 10:23 Bite Cells Not Reportable 01/27/19 10:23 Crenated Cell Not Reportable 01/27/19 10:23 Elliptocytes Rare 01/27/19 10:23 Acanthocytes (Spur) Not Reportable 01/27/19 10:23 Rouleaux Not Reportable 01/27/19 10:23 Hemoglobin C Crystals Not Reportable 01/27/19 10:23 Schistocytes Not Reportable 01/27/19 10:23 Malaria parasites Not Reportable 01/27/19 10:23 Derick Bodies Not Reportable 01/27/19 10:23 Hem Pathologist Commnt No 01/27/19 10:23 Sodium 136 mmol/L (137-145) L 02/03/19 06:20 Potassium 4.8 mmol/L (3.6-5.0) 02/03/19 06:20 Chloride 94.4 mmol/L (98-107) L 02/03/19 06:20 Carbon Dioxide 34 mmol/L (22-30) H D 02/03/19 06:20 Anion Gap 12 mmol/L 02/03/19 06:20 BUN 11 mg/dL (9-20) 02/03/19 06:20 Creatinine 0.3 mg/dL (0.8-1.5) L 02/03/19 06:20 Estimated GFR > 60 ml/min 02/03/19 06:20 BUN/Creatinine Ratio 37 % 02/03/19 06:20 Glucose 98 mg/dL (75-100) 02/03/19 06:20 Calcium 7.9 mg/dL (8.4-10.2) L 02/03/19 06:20 Magnesium 1.80 mg/dL (1.7-2.3) 01/29/19 05:13 Iron 7 ug/dL (49-181) L 01/28/19 07:06 TIBC 92 mcg/dL (250-450) L 01/28/19 07:06 % Saturation 7.61 % 01/28/19 07:06 Transferrin 89 mg/dl (180-329) L 01/28/19 07:06 Total Bilirubin 0.40 mg/dL (0.1-1.2) 01/27/19 10:19 AST 23 units/L (5-40) 01/27/19 10:19 ALT 20 units/L (7-56) 01/27/19 10:19 Alkaline Phosphatase 111 units/L (35-129) 01/27/19 10:19 Troponin T < 0.010 ng/mL (0.00-0.029) 01/27/19 10:19 Total Protein 5.9 g/dL (6.3-8.2) L 01/27/19 10:19 Albumin 1.9 g/dL (3.9-5) L 01/27/19 10:19 Albumin/Globulin Ratio 0.5 % 01/27/19 10:19 Vitamin B12 1887 pg/mL (211-911) H 01/28/19 07:06 RBC Folic Acid >1000 ng/mL (>280) 01/28/19 07:06 TSH 8.080 mlU/mL (0.270-4.200) H 01/28/19 07:06 Free T4 0.76 ng/dL (0.76-1.46) 02/03/19 13:46 Thyroxine (T4) 4.3 ug/dL (4.0-12.0) 02/03/19 13:46 Active Medications - Current Medications Current Medications: Generic Name Dose Route Start Last Admin Trade Name Freq PRN Reason Stop Dose Admin Amiodarone HCl 200 mg 02/04/19 13:00 02/05/19 09:50 Cordarone PO 200 mg Q12HR JONI Administration Aspirin 81 mg 01/28/19 10:00 02/05/19 09:50 Halfprin Ec PO 81 mg QDAY JONI Administration Cyclobenzaprine HCl 10 mg 01/30/19 08:30 02/04/19 04:15 Flexeril PO 10 mg Q8H PRN Administration Muscle Spasm Diltiazem HCl 60 mg 02/04/19 10:00 02/05/19 06:11 Cardizem PO Not Given Q6HR [facility] Ferrous Sulfate 325 mg 01/28/19 10:00 02/05/19 09:49 Feosol PO 325 mg DAILY JONI Administration Ceftriaxone Sodium 2 gm in 100 mls @ 200 mls/hr 01/30/19 12:00 02/04/19 12:40 Rocephin/Ns 2 Gm/100 Ml IV 200 mls/hr Q24H JONI Administration Protocol Levothyroxine Sodium 112 mcg 01/28/19 06:00 02/05/19 06:12 Synthroid PO 112 mcg DAILY@0600 [facility] Administration Metoprolol Tartrate 2.5 mg 01/29/19 12:51 Lopressor IV Q6HR PRN HR>130 Metoprolol Tartrate 50 mg 01/30/19 18:00 02/05/19 06:12 Lopressor PO Not Given Q12H [facility] Nicotine 21 mg 01/29/19 00:23 02/05/19 01:08 Habitrol TD 21 mg Q24H JONI Administration Oxycodone HCl 5 mg 02/05/19 13:07 Roxicodone PO Q6H PRN Pain , Severe (7-10) Pantoprazole Sodium 40 mg 01/28/19 10:00 02/05/19 09:49 Protonix PO 40 mg QDAY JONI Administration Nutrition/Malnutrition Assess - Dietary Evaluation Nutrition/Malnutrition Findings: Nutrition Notes Start: 01/28/19 15:47 Freq: Status: Active Protocol: Document 02/03/19 10:06 (Rec: 02/03/19 10:17 [email or web address]) Co-Sign 02/03/19 10:06 LP Nutrition Notes Initial or Follow up Reassessment Current Diagnosis Decubitus(Pressure Ulcer), Hypertension Other Pertinent Diagnosis Hypothyroidism, LLE edema, GERD Current Diet cardiac Labs/Tests Na: 136 Cr: 0.3 M.9 Pertinent Medications Reviewed Height 5 ft 11 in Weight 90.6 kg [place] Body Weight (kg) 78.18 BMI 27.8 Subjective/Other Information Patient states appetite is good but doesn't like this facilities food. Pt reports eating 50% of meals during hosiptal stay. Pt reports drinking 100% of ONS BID. Pt denies N/V/D. Pt states UBW: 158#. Percent of energy/protein needs met: 88%/75% #1 Nutrition Diagnosis Inadequate oral intake As Evidenced by Signs and Symptoms pt meeting at least 75% of kcal and pro needs via PO and ONS intake Diagnosis Progress(for reassessment Improved documentation) Is patient on ventilator? No Is Patient Ambulatory and/or Out of Bed No REE-([facility]-confined to bed) 05 Calculation Used for Recommendations [facility] Additional Notes Protein Needs: 109-136g (1.2-1 .5g/kg) Fluid Needs: 1 ml/kcal Nutrition Intervention Change Diet Order: Continue current Add Supplement/Snack (indicate name/kcal Ensure Enlive Vanilla or /protein ) Chocolate BID Provides kCal: 700 Provides Protein (gm) 40 Goal #1 Meet at least 75% of calorie and protein needs via PO and ONS intakes Anticipated Discharge Needs: Cardiac diet Follow-Up By: 02/10/19 Additional Comments F/U: PO and ONS intakes <JOSHUA KIRK M - Last Filed: 02/06/19 23:35> Assessment and Plan Assessment and plan: I saw and evaluated the patient. I agree with the findings and the plan of care as documented in the Nurse Practitioner's~note, Hospitalist Physical - Constitutional Vitals: Temp Pulse Resp BP Pulse Ox 98.4 F 67 18 106/51 97 02/06/19 19:31 02/06/19 19:31 02/06/19 19:31 02/06/19 19:31 02/06/19 19:31 Results - Labs CBC & Chem 7: 02/03/19 06:20 02/03/19 06:20 Labs: Laboratory Last Values WBC 18.0 K/mm3 (4.5-11.0) H 02/03/19 06:20 RBC 3.01 M/mm3 (3.65-5.03) L 02/03/19 06:20 Hgb 9.1 gm/dl (11.8-15.2) L 02/03/19 06:20 Hct 28.5 % (35.5-45.6) L 02/03/19 06:20 MCV 95 fl (84-94) H 02/03/19 06:20 MCH 30 pg (28-32) 02/03/19 06:20 MCHC 32 % (32-34) 02/03/19 06:20 RDW 19.0 % (13.2-15.2) H 02/03/19 06:20 Plt Count 378 K/mm3 (140-440) 02/03/19 06:20 Add Manual Diff Complete 01/27/19 10:23 Total Counted 100 01/27/19 10:23 Seg Neutrophils % Structural Iron Worker 01/27/19 10:23 Seg Neuts % (Manual) 90.0 % (40.0-70.0) H 01/27/19 10:23 Band Neutrophils % 0 % 01/27/19 10:23 Lymphocytes % (Manual) 7.0 % (13.4-35.0) L 01/27/19 10:23 Reactive Lymphs % (Man) 0 % 01/27/19 10:23 Monocytes % (Manual) 3.0 % (0.0-7.3) 01/27/19 10:23 Eosinophils % (Manual) 0 % (0.0-4.3) 01/27/19 10:23 Metamyelocytes % 0 % 01/27/19 10:23 Myelocytes % 0 % 01/27/19 10:23 Promyelocytes % 0 % 01/27/19 10:23 Blast Cells % 0 % 01/27/19 10:23 Nucleated RBC % Not Reportable 01/27/19 10:23 Seg Neutrophils # Man 10.7 K/mm3 (1.8-7.7) H 01/27/19 10:23 Band Neutrophils # 0.0 K/mm3 01/27/19 10:23 Lymphocytes # (Manual) 0.8 K/mm3 (1.2-5.4) L 01/27/19 10:23 Abs React Lymphs (Man) 0.0 K/mm3 01/27/19 10:23 Monocytes # (Manual) 0.4 K/mm3 (0.0-0.8) 01/27/19 10:23 Eosinophils # (Manual) 0.0 K/mm3 (0.0-0.4) 01/27/19 10:23 Basophils # (Manual) 0.0 K/mm3 (0.0-0.1) 01/27/19 10:23 Metamyelocytes # 0.0 K/mm3 01/27/19 10:23 Myelocytes # 0.0 K/mm3 01/27/19 10:23 Promyelocytes # 0.0 K/mm3 01/27/19 10:23 Blast Cells # 0.0 K/mm3 01/27/19 10:23 WBC Morphology Not Reportable 01/27/19 10:23 Hypersegmented Neuts Not Reportable 01/27/19 10:23 Hyposegmented Neuts Not Reportable 01/27/19 10:23 Hypogranular Neuts Not Reportable 01/27/19 10:23 Smudge Cells Not Reportable 01/27/19 10:23 Toxic Granulation Not Reportable 01/27/19 10:23 Toxic Vacuolation Not Reportable 01/27/19 10:23 Dohle Bodies Not Reportable 01/27/19 10:23 Pelger-Huet Anomaly Not Reportable 01/27/19 10:23 Eugenio Rods Not Reportable 01/27/19 10:23 Platelet Estimate Consistent w auto 01/27/19 10:23 Clumped Platelets Not Reportable 01/27/19 10:23 Plt Clumps, EDTA Not Reportable 01/27/19 10:23 Large Platelets Not Reportable 01/27/19 10:23 Giant Platelets Rare 01/27/19 10:23 Platelet Satelliting Not Reportable 01/27/19 10:23 Plt Morphology Comment Not Reportable 01/27/19 10:23 RBC Morphology Not Reportable 01/27/19 10:23 Dimorphic RBCs Not Reportable 01/27/19 10:23 Polychromasia Not Reportable 01/27/19 10:23 Hypochromasia Not Reportable 01/27/19 10:23 Poikilocytosis Few 01/27/19 10:23 Anisocytosis Few 01/27/19 10:23 Microcytosis Not Reportable 01/27/19 10:23 Macrocytosis Not Reportable 01/27/19 10:23 Spherocytes Not Reportable 01/27/19 10:23 Pappenheimer Bodies Not Reportable 01/27/19 10:23 Sickle Cells Not Reportable 01/27/19 10:23 Target Cells Not Reportable 01/27/19 10:23 Tear Drop Cells Not Reportable 01/27/19 10:23 Ovalocytes Not Reportable 01/27/19 10:23 Helmet Cells Not Reportable 01/27/19 10:23 [place] Bodies Not Reportable 01/27/19 10:23 [place] Rings Not Reportable 01/27/19 10:23 [place] Cells Not Reportable 01/27/19 10:23 Bite Cells Not Reportable 01/27/19 10:23 Crenated Cell Not Reportable 01/27/19 10:23 Elliptocytes Rare 01/27/19 10:23 Acanthocytes (Spur) Not Reportable 01/27/19 10:23 Rouleaux Not Reportable 01/27/19 10:23 Hemoglobin C Crystals Not Reportable 01/27/19 10:23 Schistocytes Not Reportable 01/27/19 10:23 Malaria parasites Not Reportable 01/27/19 10:23 Derick Bodies Not Reportable 01/27/19 10:23 Hem Pathologist Commnt No 01/27/19 10:23 Sodium 136 mmol/L (137-145) L 02/03/19 06:20 Potassium 4.8 mmol/L (3.6-5.0) 02/03/19 06:20 Chloride 94.4 mmol/L (98-107) L 02/03/19 06:20 Carbon Dioxide 34 mmol/L (22-30) H D 02/03/19 06:20 Anion Gap 12 mmol/L 02/03/19 06:20 BUN 11 mg/dL (9-20) 02/03/19 06:20 Creatinine 0.3 mg/dL (0.8-1.5) L 02/03/19 06:20 Estimated GFR > 60 ml/min 02/03/19 06:20 BUN/Creatinine Ratio 37 % 02/03/19 06:20 Glucose 98 mg/dL (75-100) 02/03/19 06:20 Calcium 7.9 mg/dL (8.4-10.2) L 02/03/19 06:20 Magnesium 1.80 mg/dL (1.7-2.3) 01/29/19 05:13 Iron 7 ug/dL (49-181) L 01/28/19 07:06 TIBC 92 mcg/dL (250-450) L 01/28/19 07:06 % Saturation 7.61 % 01/28/19 07:06 Transferrin 89 mg/dl (180-329) L 01/28/19 07:06 Total Bilirubin 0.40 mg/dL (0.1-1.2) 01/27/19 10:19 AST 23 units/L (5-40) 01/27/19 10:19 ALT 20 units/L (7-56) 01/27/19 10:19 Alkaline Phosphatase 111 units/L (35-129) 01/27/19 10:19 Troponin T < 0.010 ng/mL (0.00-0.029) 01/27/19 10:19 Total Protein 5.9 g/dL (6.3-8.2) L 01/27/19 10:19 Albumin 1.9 g/dL (3.9-5) L 01/27/19 10:19 Albumin/Globulin Ratio 0.5 % 01/27/19 10:19 Vitamin B12 1887 pg/mL (211-911) H 01/28/19 07:06 RBC Folic Acid >1000 ng/mL (>280) 01/28/19 07:06 TSH 8.080 mlU/mL (0.270-4.200) H 01/28/19 07:06 Free T4 0.76 ng/dL (0.76-1.46) 02/03/19 13:46 Thyroxine (T4) 4.3 ug/dL (4.0-12.0) 02/03/19 13:46 Active Medications - Current Medications Current Medications: Generic Name Dose Route Start Last Admin Trade Name Freq PRN Reason Stop Dose Admin Amiodarone HCl 200 mg 02/05/19 14:00 02/06/19 10:36 Cordarone PO 200 mg QDAY JONI Administration Aspirin 81 mg 01/28/19 10:00 02/06/19 10:36 Halfprin Ec PO 81 mg QDAY JONI Administration Cyclobenzaprine HCl 10 mg 01/30/19 08:30 02/04/19 04:15 Flexeril PO 10 mg Q8H PRN Administration Muscle Spasm Diltiazem HCl 30 mg 02/05/19 14:00 02/06/19 23:13 Cardizem PO 30 mg Q6HR JONI Administration Ferrous Sulfate 325 mg 01/28/19 10:00 02/06/19 10:37 Feosol PO 325 mg DAILY JONI Administration Ampicillin Sodium/Sulbactam Sodium 3 gm in 100 mls @ 200 mls/hr 02/06/19 17:00 02/06/19 23:14 Unasyn/Ns 3 Gm/100 Ml IV 200 mls/hr Q6HR JONI Administration Protocol Vancomycin HCl 1,500 mg/ 530 mls @ 333.333 mls/hr 02/07/19 10:00 Sodium Chloride IV Q12HR [facility] Levothyroxine Sodium 112 mcg 01/28/19 06:00 02/06/19 06:42 Synthroid PO 112 mcg DAILY@0600 JONI Administration Metoprolol Tartrate 2.5 mg 01/29/19 12:51 Lopressor IV Q6HR PRN HR>130 Metoprolol Tartrate 25 mg 02/05/19 14:00 02/06/19 23:13 Lopressor PO 25 mg BID JONI Administration Nicotine 21 mg 01/29/19 00:23 02/06/19 23:30 Habitrol TD Not Given Q24H JONI Pantoprazole Sodium 40 mg 01/28/19 10:00 02/06/19 10:36 Protonix PO 40 mg QDAY JONI Administration Tramadol HCl 50 mg 02/05/19 15:44 02/06/19 20:02 Ultram PO 50 mg Q6H PRN Administration Pain, Moderate (4-6) Nutrition/Malnutrition Assess - Dietary Evaluation Nutrition/Malnutrition Findings: Nutrition Notes Start: 01/28/19 15:47 Freq: Status: Active Protocol: Document 02/03/19 10:06 (Rec: 02/03/19 10:17 [id number]) Co-Sign 02/03/19 10:06 LP Nutrition Notes Initial or Follow up Reassessment Current Diagnosis Decubitus(Pressure Ulcer), Hypertension Other Pertinent Diagnosis Hypothyroidism, LLE edema, GERD Current Diet cardiac Labs/Tests Na: 136 Cr: 0.3 M.9 Pertinent Medications Reviewed Height 5 ft 11 in Weight 90.6 kg [place] Body Weight (kg) 78.18 BMI 27.8 Subjective/Other Information Patient states appetite is good but doesn't like this facilities food. Pt reports eating 50% of meals during hosiptal stay. Pt reports drinking 100% of ONS BID. Pt denies N/V/D. Pt states UBW: 158#. Percent of energy/protein needs met: 88%/75% #1 Nutrition Diagnosis Inadequate oral intake As Evidenced by Signs and Symptoms pt meeting at least 75% of kcal and pro needs via PO and ONS intake Diagnosis Progress(for reassessment Improved documentation) Is patient on ventilator? No Is Patient Ambulatory and/or Out of Bed No REE-([facility]-confined to bed) 05 Calculation Used for Recommendations [facility] Additional Notes Protein Needs: 109-136g (1.2-1 .5g/kg) Fluid Needs: 1 ml/kcal Nutrition Intervention Change Diet Order: Continue current Add Supplement/Snack (indicate name/kcal Ensure Enlive Vanilla or /protein ) Chocolate BID Provides kCal: 700 Provides Protein (gm) 40 Goal #1 Meet at least 75% of calorie and protein needs via PO and ONS intakes Anticipated Discharge Needs: Cardiac diet Follow-Up By: 02/10/19 Additional Comments F/U: PO and ONS intakes
[2019-02-05] MEDS: ROCEPHIN/NS 2 GM/100 ML 2 GM/100 ML BAG IV SCH (13:15)
[2019-02-05] MEDS ORDERED: ROXICODONE PO PRN (14:00)
[2019-02-06] MEDS: CARDIZEM PO SCH ×5 (00:45→23:13)
[2019-02-06] MEDS: SYNTHROID PO SCH (06:42)
[2019-02-06] MEDS: ULTRAM PO PRN ×3 (06:42→20:02)
[2019-02-06] MEDS: HALFPRIN EC PO SCH (10:36)
[2019-02-06] MEDS: LOPRESSOR PO SCH ×2 (10:36→23:13)
[2019-02-06] MEDS: CORDARONE PO SCH (10:36)
[2019-02-06] MEDS: PROTONIX PO SCH (10:36)
[2019-02-06] MEDS: FEOSOL PO SCH (10:37)
--- NOTE | 2019-02-06 11:55 | Progress Note ---
Assessment and Plan Generalized pain -chief complaint Atrial fibrillation, paroxysmal on amiodarone and metoprolol patient is not a candidate for oral anticoagulation s/t severe anemia and recent GI bleed. Unilateral LE edema LE venous doppler reports no evidence of DVT Recent GI bleed recent EGD workup revealed gastric ulcer Leukocytosis Chronic Anemia Hypothyroidism Hyponatremia Elevated liver transaminase Chronic lung disease Tobacco abuse Ascending thoracic aorta aneurysm measuring 5cm An echocardiogram 12/2018 reveal moderate aortic valve calcification with moderate to severe aortic stenosis. Left ventricular systolic function is normal, EF 60%. Small fixed apical wall defect, no reversible ischemia on MPI done 01/2018. Recommend: Continue diltiazem, metoprolol and amiodarone for suppression of paroxysmal atrial fibrillation. Subjective Date of service: 02/06/19 Interval history: No interval changes. Stable sinus rhythm on telemetry. Objective Vital Signs Temp Pulse Pulse Pulse Resp Resp Resp 02/06/19 10:36 66 02/06/19 10:00 72 72 20 02/06/19 08:59 97.5 F L 02/06/19 08:56 65 20 02/06/19 07:00 20 20 02/06/19 06:43 63 02/06/19 04:35 97.1 F L 66 18 02/06/19 04:00 72 02/06/19 00:45 72 02/06/19 00:10 97.7 F 70 18 02/05/19 22:50 77 02/05/19 22:00 74 74 18 02/05/19 21:21 02/05/19 20:05 98.3 F 73 18 02/05/19 20:04 75 02/05/19 20:00 74 02/05/19 17:48 78 02/05/19 16:45 97.6 F 73 18 02/05/19 13:15 74 02/05/19 12:28 97.8 F 74 16 02/05/19 12:00 74 BP Pulse Ox 02/06/19 10:36 120/60 02/06/19 10:00 02/06/19 08:59 02/06/19 08:56 121/56 96 02/06/19 07:00 02/06/19 06:43 109/47 02/06/19 04:35 109/47 99 02/06/19 04:00 02/06/19 00:45 111/52 02/06/19 00:10 111/52 97 02/05/19 22:50 110/48 02/05/19 22:00 02/05/19 21:21 96 02/05/19 20:05 100 02/05/19 20:04 110/48 100 02/05/19 20:00 02/05/19 17:48 120/60 02/05/19 16:45 106/49 97 02/05/19 13:15 110/58 02/05/19 12:28 107/50 100 02/05/19 12:00 - Physical Examination General: No Apparent Distress HEENT: Positive: PERRL Neck: Positive: trachea midline Cardiac: Positive: Reg Rate and Rhythm Lungs: Positive: Rhonchi Neuro: Positive: Grossly Intact, Weakness Extremities: Present: edema (unilateral) - Imaging and Cardiology EKG: report reviewed (Afib with RVR 130/min)
--- NOTE | 2019-02-06 12:06 | Progress Note ---
<CHASE CABRERA - Last Filed: 02/06/19 14:45> Assessment and Plan Assessment and plan: 78 yo man with a history of afib, hypertension, asthma, hypothyroid, recent GIB with Gastric ulcer s/p endoclip repair who presented to ED on with c/o left leg pains and palpitations. He was previously admitted to [facility] approximately one month ago with similar presentation. An echocardiogram performed during previous admission revealed moderate aortic valve calcification with moderate to severe aortic stenosis. Left ventricular systolic function is normal, EF 60%. 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 Pt continues to experience A-Fib RVR with periods of conversion to SR. Amiodarone and Cardizem drips are off and he is on PO Amiodarone and Cardizem now. On 02/05 pt had a few borderline low BP readings. His Cardizem and Lopressor was held. He is presently in sinus rhythm. Atrial fibrillation with RVR D/C IV Amiodarone gtt Transitioned to PO Amiodarone IV Diltizam ended on 02/04 Continue PO Diltizam Cardiology following and managing Left Leg Pain Doppler 01/28 negative for DVT Vascular/IR recommendation: "The patient has bilateral lower extremity swelling. Additionally, the patient has had extensive surgical repairs to his knees. Ultrasound demonstrates no evidence of DVT however, the patient has bilateral ruptured Ceballos's cyst. We'll consult orthopedic surgery for further evaluation. We'll evaluate patient for venous option with reflux for venous insufficiency which may be contributing to his leg swelling however, optimizing the patient's cardiac output may be most beneficial in reducing his fluid retention." Suspected Abscess- soft tissue infection Dr. Michaels to evaluate and treat Start Unasyn and Vancomycin ID Consult pending Hypertension Continue Lopressor Continue to monitor BP History of GERD On Protonix Anemia hx of GI bleed Recent EGD revealed gastric ulcers Hgb on admission 8.6/26.1 Hgb on 02/03/19 9.1/28.5 Continue to monitor Chronic Pain Continue pain management Discontinued Roxicodone On terminal DVT PPX On Lovenox full code History Interval history: Pt was found to have a fluid collection that was felt to possibly be a popliteal cyst, and orthopedics agreed with conservative care. However the calf started draining dark /blackish colored fluid. Dr. Michaels was consulted to evaluate and treat. There were no acute overnight events. Hospitalist Physical - Physical exam Narrative exam: General appearance: Present: no acute distress - EENT Eyes: Present: PERRL, EOM intact ENT: hearing intact - Neck Neck: Present: supple, normal ROM - Respiratory Respiratory effort: normal Respiratory: bilateral: CTA - Cardiovascular Rhythm: regular Heart Sounds: Present: S1 & S2 - Extremities Extremities: pulses intact, No edema Extremity abnormal: deformity Peripheral Pulses: within normal limits - Abdominal General gastrointestinal: Present: soft, non-tender Male genitourinary: Present: deferred - Rectal Rectal Exam: deferred - Integumentary Integumentary: Present: warm, dry - Musculoskeletal Musculoskeletal: strength equal bilaterally - Psychiatric Psychiatric: appropriate mood/affect - Neurologic Neurologic: CNII-XII intac - Constitutional Vitals: Temp Pulse Resp BP Pulse Ox 97.5 F L 66 20 120/60 96 02/06/19 08:59 02/06/19 10:36 02/06/19 10:00 02/06/19 10:36 02/06/19 08:56 General appearance: Present: no acute distress Results - Labs CBC & Chem 7: 02/03/19 06:20 02/03/19 06:20 Labs: Laboratory Last Values WBC 18.0 K/mm3 (4.5-11.0) H 02/03/19 06:20 RBC 3.01 M/mm3 (3.65-5.03) L 02/03/19 06:20 Hgb 9.1 gm/dl (11.8-15.2) L 02/03/19 06:20 Hct 28.5 % (35.5-45.6) L 02/03/19 06:20 MCV 95 fl (84-94) H 02/03/19 06:20 MCH 30 pg (28-32) 02/03/19 06:20 MCHC 32 % (32-34) 02/03/19 06:20 RDW 19.0 % (13.2-15.2) H 02/03/19 06:20 Plt Count 378 K/mm3 (140-440) 02/03/19 06:20 Add Manual Diff Complete 01/27/19 10:23 Total Counted 100 01/27/19 10:23 Seg Neutrophils % Imaging System Administrator 01/27/19 10:23 Seg Neuts % (Manual) 90.0 % (40.0-70.0) H 01/27/19 10:23 Band Neutrophils % 0 % 01/27/19 10:23 Lymphocytes % (Manual) 7.0 % (13.4-35.0) L 01/27/19 10:23 Reactive Lymphs % (Man) 0 % 01/27/19 10:23 Monocytes % (Manual) 3.0 % (0.0-7.3) 01/27/19 10:23 Eosinophils % (Manual) 0 % (0.0-4.3) 01/27/19 10:23 Metamyelocytes % 0 % 01/27/19 10:23 Myelocytes % 0 % 01/27/19 10:23 Promyelocytes % 0 % 01/27/19 10:23 Blast Cells % 0 % 01/27/19 10:23 Nucleated RBC % Not Reportable 01/27/19 10:23 Seg Neutrophils # Man 10.7 K/mm3 (1.8-7.7) H 01/27/19 10:23 Band Neutrophils # 0.0 K/mm3 01/27/19 10:23 Lymphocytes # (Manual) 0.8 K/mm3 (1.2-5.4) L 01/27/19 10:23 Abs React Lymphs (Man) 0.0 K/mm3 01/27/19 10:23 Monocytes # (Manual) 0.4 K/mm3 (0.0-0.8) 01/27/19 10:23 Eosinophils # (Manual) 0.0 K/mm3 (0.0-0.4) 01/27/19 10:23 Basophils # (Manual) 0.0 K/mm3 (0.0-0.1) 01/27/19 10:23 Metamyelocytes # 0.0 K/mm3 01/27/19 10:23 Myelocytes # 0.0 K/mm3 01/27/19 10:23 Promyelocytes # 0.0 K/mm3 01/27/19 10:23 Blast Cells # 0.0 K/mm3 01/27/19 10:23 WBC Morphology Not Reportable 01/27/19 10:23 Hypersegmented Neuts Not Reportable 01/27/19 10:23 Hyposegmented Neuts Not Reportable 01/27/19 10:23 Hypogranular Neuts Not Reportable 01/27/19 10:23 Smudge Cells Not Reportable 01/27/19 10:23 Toxic Granulation Not Reportable 01/27/19 10:23 Toxic Vacuolation Not Reportable 01/27/19 10:23 Dohle Bodies Not Reportable 01/27/19 10:23 Pelger-Huet Anomaly Not Reportable 01/27/19 10:23 Eugenio Rods Not Reportable 01/27/19 10:23 Platelet Estimate Consistent w auto 01/27/19 10:23 Clumped Platelets Not Reportable 01/27/19 10:23 Plt Clumps, EDTA Not Reportable 01/27/19 10:23 Large Platelets Not Reportable 01/27/19 10:23 Giant Platelets Rare 01/27/19 10:23 Platelet Satelliting Not Reportable 01/27/19 10:23 Plt Morphology Comment Not Reportable 01/27/19 10:23 RBC Morphology Not Reportable 01/27/19 10:23 Dimorphic RBCs Not Reportable 01/27/19 10:23 Polychromasia Not Reportable 01/27/19 10:23 Hypochromasia Not Reportable 01/27/19 10:23 Poikilocytosis Few 01/27/19 10:23 Anisocytosis Few 01/27/19 10:23 Microcytosis Not Reportable 01/27/19 10:23 Macrocytosis Not Reportable 01/27/19 10:23 Spherocytes Not Reportable 01/27/19 10:23 Pappenheimer Bodies Not Reportable 01/27/19 10:23 Sickle Cells Not Reportable 01/27/19 10:23 Target Cells Not Reportable 01/27/19 10:23 Tear Drop Cells Not Reportable 01/27/19 10:23 Ovalocytes Not Reportable 01/27/19 10:23 Helmet Cells Not Reportable 01/27/19 10:23 [place] Bodies Not Reportable 01/27/19 10:23 [place] Rings Not Reportable 01/27/19 10:23 Jame Cells Not Reportable 01/27/19 10:23 Bite Cells Not Reportable 01/27/19 10:23 Crenated Cell Not Reportable 01/27/19 10:23 Elliptocytes Rare 01/27/19 10:23 Acanthocytes (Spur) Not Reportable 01/27/19 10:23 Rouleaux Not Reportable 01/27/19 10:23 Hemoglobin C Crystals Not Reportable 01/27/19 10:23 Schistocytes Not Reportable 01/27/19 10:23 Malaria parasites Not Reportable 01/27/19 10:23 [place]ick Bodies Not Reportable 01/27/19 10:23 Hem Pathologist Commnt No 01/27/19 10:23 Sodium 136 mmol/L (137-145) L 02/03/19 06:20 Potassium 4.8 mmol/L (3.6-5.0) 02/03/19 06:20 Chloride 94.4 mmol/L (98-107) L 02/03/19 06:20 Carbon Dioxide 34 mmol/L (22-30) H D 02/03/19 06:20 Anion Gap 12 mmol/L 02/03/19 06:20 BUN 11 mg/dL (9-20) 02/03/19 06:20 Creatinine 0.3 mg/dL (0.8-1.5) L 02/03/19 06:20 Estimated GFR > 60 ml/min 02/03/19 06:20 BUN/Creatinine Ratio 37 % 02/03/19 06:20 Glucose 98 mg/dL (75-100) 02/03/19 06:20 Calcium 7.9 mg/dL (8.4-10.2) L 02/03/19 06:20 Magnesium 1.80 mg/dL (1.7-2.3) 01/29/19 05:13 Iron 7 ug/dL (49-181) L 01/28/19 07:06 TIBC 92 mcg/dL (250-450) L 01/28/19 07:06 % Saturation 7.61 % 01/28/19 07:06 Transferrin 89 mg/dl (180-329) L 01/28/19 07:06 Total Bilirubin 0.40 mg/dL (0.1-1.2) 01/27/19 10:19 AST 23 units/L (5-40) 01/27/19 10:19 ALT 20 units/L (7-56) 01/27/19 10:19 Alkaline Phosphatase 111 units/L (35-129) 01/27/19 10:19 Troponin T < 0.010 ng/mL (0.00-0.029) 01/27/19 10:19 Total Protein 5.9 g/dL (6.3-8.2) L 01/27/19 10:19 Albumin 1.9 g/dL (3.9-5) L 01/27/19 10:19 Albumin/Globulin Ratio 0.5 % 01/27/19 10:19 Vitamin B12 1887 pg/mL (211-911) H 01/28/19 07:06 RBC Folic Acid >1000 ng/mL (>280) 01/28/19 07:06 TSH 8.080 mlU/mL (0.270-4.200) H 01/28/19 07:06 Free T4 0.76 ng/dL (0.76-1.46) 02/03/19 13:46 Thyroxine (T4) 4.3 ug/dL (4.0-12.0) 02/03/19 13:46 Active Medications - Current Medications Current Medications: Generic Name Dose Route Start Last Admin Trade Name Freq PRN Reason Stop Dose Admin Amiodarone HCl 200 mg 02/05/19 14:00 02/06/19 10:36 Cordarone PO 200 mg QDAY JONI Administration Aspirin 81 mg 01/28/19 10:00 02/06/19 10:36 Halfprin Ec PO 81 mg QDAY JONI Administration Cyclobenzaprine HCl 10 mg 01/30/19 08:30 02/04/19 04:15 Flexeril PO 10 mg Q8H PRN Administration Muscle Spasm Diltiazem HCl 30 mg 02/05/19 14:00 02/06/19 06:43 Cardizem PO 30 mg Q6HR JONI Administration Ferrous Sulfate 325 mg 01/28/19 10:00 02/06/19 10:37 Feosol PO 325 mg DAILY JONI Administration Ceftriaxone Sodium 2 gm in 100 mls @ 200 mls/hr 01/30/19 12:00 02/05/19 13:15 Rocephin/Ns 2 Gm/100 Ml IV 200 mls/hr Q24H JONI Administration Protocol Levothyroxine Sodium 112 mcg 01/28/19 06:00 02/06/19 06:42 Synthroid PO 112 mcg DAILY@0600 JONI Administration Metoprolol Tartrate 2.5 mg 01/29/19 12:51 Lopressor IV Q6HR PRN HR>130 Metoprolol Tartrate 25 mg 02/05/19 14:00 02/06/19 10:36 Lopressor PO 25 mg BID JONI Administration Nicotine 21 mg 01/29/19 00:23 02/05/19 23:36 Habitrol TD 21 mg Q24H JONI Administration Pantoprazole Sodium 40 mg 01/28/19 10:00 02/06/19 10:36 Protonix PO 40 mg QDAY JONI Administration Tramadol HCl 50 mg 02/05/19 15:44 02/06/19 06:42 Ultram PO 50 mg Q6H PRN Administration Pain, Moderate (4-6) Nutrition/Malnutrition Assess - Dietary Evaluation Nutrition/Malnutrition Findings: Nutrition Notes Start: 01/28/19 15:47 Freq: Status: Active Protocol: Document 02/03/19 10:06 (Rec: 02/03/19 10:17 [facility]-[id number]) Co-Sign 02/03/19 10:06 LP Nutrition Notes Initial or Follow up Reassessment Current Diagnosis Decubitus(Pressure Ulcer), Hypertension Other Pertinent Diagnosis Hypothyroidism, LLE edema, GERD Current Diet cardiac Labs/Tests Na: 136 Cr: 0.3 M.9 Pertinent Medications Reviewed Height 5 ft 11 in Weight 90.6 kg [place] Body Weight (kg) 78.18 BMI 27.8 Subjective/Other Information Patient states appetite is good but doesn't like this facilities food. Pt reports eating 50% of meals during hosiptal stay. Pt reports drinking 100% of ONS BID. Pt denies N/V/D. Pt states UBW: 158#. Percent of energy/protein needs met: 88%/75% #1 Nutrition Diagnosis Inadequate oral intake As Evidenced by Signs and Symptoms pt meeting at least 75% of kcal and pro needs via PO and ONS intake Diagnosis Progress(for reassessment Improved documentation) Is patient on ventilator? No Is Patient Ambulatory and/or Out of Bed No REE-([facility]-confined to bed) 05 Calculation Used for Recommendations [facility] Additional Notes Protein Needs: 109-136g (1.2-1 .5g/kg) Fluid Needs: 1 ml/kcal Nutrition Intervention Change Diet Order: Continue current Add Supplement/Snack (indicate name/kcal Ensure Enlive Vanilla or /protein ) Chocolate BID Provides kCal: 700 Provides Protein (gm) 40 Goal #1 Meet at least 75% of calorie and protein needs via PO and ONS intakes Anticipated Discharge Needs: Cardiac diet Follow-Up By: 02/10/19 Additional Comments F/U: PO and ONS intakes <ISAELMARIANA CHOWKYLE M - Last Filed: 02/07/19 09:02> Assessment and Plan Assessment and plan: I saw and evaluated the patient. I agree with the findings and the plan of care as documented in the Nurse Practitioner's~note, with the following corrections and additions. Acute diastolic heart failure, EF 60%, continue Lasix Left lower extremity abscess, continue antibiotics, for bedside debridement today Hospitalist Physical - Constitutional Vitals: Temp Pulse Resp BP Pulse Ox 98.3 F 63 18 111/59 100 02/07/19 05:01 02/07/19 05:01 02/07/19 05:01 02/07/19 05:01 02/07/19 05:01 Results - Labs CBC & Chem 7: 02/03/19 06:20 02/03/19 06:20 Labs: Laboratory Last Values WBC 18.0 K/mm3 (4.5-11.0) H 02/03/19 06:20 RBC 3.01 M/mm3 (3.65-5.03) L 02/03/19 06:20 Hgb 9.1 gm/dl (11.8-15.2) L 02/03/19 06:20 Hct 28.5 % (35.5-45.6) L 02/03/19 06:20 MCV 95 fl (84-94) H 02/03/19 06:20 MCH 30 pg (28-32) 02/03/19 06:20 MCHC 32 % (32-34) 02/03/19 06:20 RDW 19.0 % (13.2-15.2) H 02/03/19 06:20 Plt Count 378 K/mm3 (140-440) 02/03/19 06:20 Add Manual Diff Complete 01/27/19 10:23 Total Counted 100 01/27/19 10:23 Seg Neutrophils % Imaging System Administrator 01/27/19 10:23 Seg Neuts % (Manual) 90.0 % (40.0-70.0) H 01/27/19 10:23 Band Neutrophils % 0 % 01/27/19 10:23 Lymphocytes % (Manual) 7.0 % (13.4-35.0) L 01/27/19 10:23 Reactive Lymphs % (Man) 0 % 01/27/19 10:23 Monocytes % (Manual) 3.0 % (0.0-7.3) 01/27/19 10:23 Eosinophils % (Manual) 0 % (0.0-4.3) 01/27/19 10:23 Metamyelocytes % 0 % 01/27/19 10:23 Myelocytes % 0 % 01/27/19 10:23 Promyelocytes % 0 % 01/27/19 10:23 Blast Cells % 0 % 01/27/19 10:23 Nucleated RBC % Not Reportable 01/27/19 10:23 Seg Neutrophils # Man 10.7 K/mm3 (1.8-7.7) H 01/27/19 10:23 Band Neutrophils # 0.0 K/mm3 01/27/19 10:23 Lymphocytes # (Manual) 0.8 K/mm3 (1.2-5.4) L 01/27/19 10:23 Abs React Lymphs (Man) 0.0 K/mm3 01/27/19 10:23 Monocytes # (Manual) 0.4 K/mm3 (0.0-0.8) 01/27/19 10:23 Eosinophils # (Manual) 0.0 K/mm3 (0.0-0.4) 01/27/19 10:23 Basophils # (Manual) 0.0 K/mm3 (0.0-0.1) 01/27/19 10:23 Metamyelocytes # 0.0 K/mm3 01/27/19 10:23 Myelocytes # 0.0 K/mm3 01/27/19 10:23 Promyelocytes # 0.0 K/mm3 01/27/19 10:23 Blast Cells # 0.0 K/mm3 01/27/19 10:23 WBC Morphology Not Reportable 01/27/19 10:23 Hypersegmented Neuts Not Reportable 01/27/19 10:23 Hyposegmented Neuts Not Reportable 01/27/19 10:23 Hypogranular Neuts Not Reportable 01/27/19 10:23 Smudge Cells Not Reportable 01/27/19 10:23 Toxic Granulation Not Reportable 01/27/19 10:23 Toxic Vacuolation Not Reportable 01/27/19 10:23 Dohle Bodies Not Reportable 01/27/19 10:23 Pelger-Huet Anomaly Not Reportable 01/27/19 10:23 Eugenio Rods Not Reportable 01/27/19 10:23 Platelet Estimate Consistent w auto 01/27/19 10:23 Clumped Platelets Not Reportable 01/27/19 10:23 Plt Clumps, EDTA Not Reportable 01/27/19 10:23 Large Platelets Not Reportable 01/27/19 10:23 Giant Platelets Rare 01/27/19 10:23 Platelet Satelliting Not Reportable 01/27/19 10:23 Plt Morphology Comment Not Reportable 01/27/19 10:23 RBC Morphology Not Reportable 01/27/19 10:23 Dimorphic RBCs Not Reportable 01/27/19 10:23 Polychromasia Not Reportable 01/27/19 10:23 Hypochromasia Not Reportable 01/27/19 10:23 Poikilocytosis Few 01/27/19 10:23 Anisocytosis Few 01/27/19 10:23 Microcytosis Not Reportable 01/27/19 10:23 Macrocytosis Not Reportable 01/27/19 10:23 Spherocytes Not Reportable 01/27/19 10:23 Pappenheimer Bodies Not Reportable 01/27/19 10:23 Sickle Cells Not Reportable 01/27/19 10:23 Target Cells Not Reportable 01/27/19 10:23 Tear Drop Cells Not Reportable 01/27/19 10:23 Ovalocytes Not Reportable 01/27/19 10:23 Helmet Cells Not Reportable 01/27/19 10:23 [place] Bodies Not Reportable 01/27/19 10:23 [place] Rings Not Reportable 01/27/19 10:23 [place] Cells Not Reportable 01/27/19 10:23 Bite Cells Not Reportable 01/27/19 10:23 Crenated Cell Not Reportable 01/27/19 10:23 Elliptocytes Rare 01/27/19 10:23 Acanthocytes (Spur) Not Reportable 01/27/19 10:23 Rouleaux Not Reportable 01/27/19 10:23 Hemoglobin C Crystals Not Reportable 01/27/19 10:23 Schistocytes Not Reportable 01/27/19 10:23 Malaria parasites Not Reportable 01/27/19 10:23 Derick Bodies Not Reportable 01/27/19 10:23 Hem Pathologist Commnt No 01/27/19 10:23 Sodium 136 mmol/L (137-145) L 02/03/19 06:20 Potassium 4.8 mmol/L (3.6-5.0) 02/03/19 06:20 Chloride 94.4 mmol/L (98-107) L 02/03/19 06:20 Carbon Dioxide 34 mmol/L (22-30) H D 02/03/19 06:20 Anion Gap 12 mmol/L 02/03/19 06:20 BUN 11 mg/dL (9-20) 02/03/19 06:20 Creatinine 0.3 mg/dL (0.8-1.5) L 02/03/19 06:20 Estimated GFR > 60 ml/min 02/03/19 06:20 BUN/Creatinine Ratio 37 % 02/03/19 06:20 Glucose 98 mg/dL (75-100) 02/03/19 06:20 Calcium 7.9 mg/dL (8.4-10.2) L 02/03/19 06:20 Magnesium 1.80 mg/dL (1.7-2.3) 01/29/19 05:13 Iron 7 ug/dL (49-181) L 01/28/19 07:06 TIBC 92 mcg/dL (250-450) L 01/28/19 07:06 % Saturation 7.61 % 01/28/19 07:06 Transferrin 89 mg/dl (180-329) L 01/28/19 07:06 Total Bilirubin 0.40 mg/dL (0.1-1.2) 01/27/19 10:19 AST 23 units/L (5-40) 01/27/19 10:19 ALT 20 units/L (7-56) 01/27/19 10:19 Alkaline Phosphatase 111 units/L (35-129) 01/27/19 10:19 Troponin T < 0.010 ng/mL (0.00-0.029) 01/27/19 10:19 Total Protein 5.9 g/dL (6.3-8.2) L 01/27/19 10:19 Albumin 1.9 g/dL (3.9-5) L 01/27/19 10:19 Albumin/Globulin Ratio 0.5 % 01/27/19 10:19 Vitamin B12 1887 pg/mL (211-911) H 01/28/19 07:06 RBC Folic Acid >1000 ng/mL (>280) 01/28/19 07:06 TSH 8.080 mlU/mL (0.270-4.200) H 01/28/19 07:06 Free T4 0.76 ng/dL (0.76-1.46) 02/03/19 13:46 Thyroxine (T4) 4.3 ug/dL (4.0-12.0) 02/03/19 13:46 Active Medications - Current Medications Current Medications: Generic Name Dose Route Start Last Admin Trade Name Freq PRN Reason Stop Dose Admin Amiodarone HCl 200 mg 02/05/19 14:00 02/06/19 10:36 Cordarone PO 200 mg QDAY JONI Administration Aspirin 81 mg 01/28/19 10:00 02/06/19 10:36 Halfprin Ec PO 81 mg QDAY JONI Administration Cyclobenzaprine HCl 10 mg 01/30/19 08:30 02/04/19 04:15 Flexeril PO 10 mg Q8H PRN Administration Muscle Spasm Diltiazem HCl 30 mg 02/05/19 14:00 02/07/19 05:57 Cardizem PO 30 mg Q6HR JONI Administration Ferrous Sulfate 325 mg 01/28/19 10:00 02/06/19 10:37 Feosol PO 325 mg DAILY JONI Administration Ampicillin Sodium/Sulbactam Sodium 3 gm in 100 mls @ 200 mls/hr 02/06/19 17:00 02/07/19 05:57 Unasyn/Ns 3 Gm/100 Ml IV 200 mls/hr Q6HR JONI Administration Protocol Vancomycin HCl 1,500 mg/ 530 mls @ 333.333 mls/hr 02/07/19 10:00 Sodium Chloride IV Q12HR JONI Levothyroxine Sodium 112 mcg 01/28/19 06:00 02/07/19 05:57 Synthroid PO 112 mcg DAILY@0600 JONI Administration Metoprolol Tartrate 2.5 mg 01/29/19 12:51 Lopressor IV Q6HR PRN HR>130 Metoprolol Tartrate 25 mg 02/05/19 14:00 02/06/19 23:13 Lopressor PO 25 mg BID JONI Administration Nicotine 21 mg 01/29/19 00:23 02/06/19 23:30 Habitrol TD Not Given Q24H JONI Pantoprazole Sodium 40 mg 01/28/19 10:00 02/06/19 10:36 Protonix PO 40 mg QDAY JONI Administration Tramadol HCl 50 mg 02/05/19 15:44 02/07/19 02:04 Ultram PO 50 mg Q6H PRN Administration Pain, Moderate (4-6) Nutrition/Malnutrition Assess - Dietary Evaluation Nutrition/Malnutrition Findings: Nutrition Notes Start: 01/28/19 15:47 Freq: Status: Active Protocol: Document 02/03/19 10:06 (Rec: 02/03/19 10:17 [facility]-[id number]) Co-Sign 02/03/19 10:06 LP Nutrition Notes Initial or Follow up Reassessment Current Diagnosis Decubitus(Pressure Ulcer), Hypertension Other Pertinent Diagnosis Hypothyroidism, LLE edema, GERD Current Diet cardiac Labs/Tests Na: 136 Cr: 0.3 M.9 Pertinent Medications Reviewed Height 5 ft 11 in Weight 90.6 kg [place] Body Weight (kg) 78.18 BMI 27.8 Subjective/Other Information Patient states appetite is good but doesn't like this facilities food. Pt reports eating 50% of meals during hosiptal stay. Pt reports drinking 100% of ONS BID. Pt denies N/V/D. Pt states UBW: 158#. Percent of energy/protein needs met: 88%/75% #1 Nutrition Diagnosis Inadequate oral intake As Evidenced by Signs and Symptoms pt meeting at least 75% of kcal and pro needs via PO and ONS intake Diagnosis Progress(for reassessment Improved documentation) Is patient on ventilator? No Is Patient Ambulatory and/or Out of Bed No REE-([facility]-confined to bed) 05 Calculation Used for Recommendations [facility] Additional Notes Protein Needs: 109-136g (1.2-1 .5g/kg) Fluid Needs: 1 ml/kcal Nutrition Intervention Change Diet Order: Continue current Add Supplement/Snack (indicate name/kcal Ensure Enlive Vanilla or /protein ) Chocolate BID Provides kCal: 700 Provides Protein (gm) 40 Goal #1 Meet at least 75% of calorie and protein needs via PO and ONS intakes Anticipated Discharge Needs: Cardiac diet Follow-Up By: 02/10/19 Additional Comments F/U: PO and ONS intakes
[2019-02-06] MEDS: ROCEPHIN/NS 2 GM/100 ML 2 GM/100 ML BAG IV SCH (13:00)
[2019-02-06] MEDS ORDERED: XYLOCAINE 1%/ EPI 1:100,000 INFILTRATI ONE (14:09)
--- NOTE | 2019-02-06 14:43 | Consultation ---
History of Present Illness Consult date: 02/06/19 Reason for consult: other (left leg abscess) Requesting physician: JOSHUA KIRK Chief complaint: left leg pain - History of present illness History of present illness: 78yo M was admitted to the hospital with severe left leg pain. Workup was negative for DVT. He was found to have a fluid collection that was felt to possibly be a popliteal cyst. Dr. Granger from orthopedics agreed with that assessment and recommended conservative care. In the interim, the calf started draining. We were consulted for evaluation of possible abscess. Pt denies any trauma. Past History Past Medical History: COPD, hypertension, other (asthma, hypothyroid) Past Surgical History: total hip replacement, total knee replacement, Other (multiple ortho procedure) Social history: smoking. denies: alcohol abuse Family history: no significant family history Medications and Allergies Allergies Allergy/AdvReac Type Severity Reaction Status Date / Time pregabalin [From Lyrica] AdvReac Unknown Verified 01/05/19 21:43 Home Medications Medication Instructions Recorded Confirmed Last Taken Type Eszopiclone 3 mg PO HS 01/06/19 01/27/19 Unknown History Ferrous Sulfate [Iron 325 MG] 325 mg PO DAILY 01/06/19 01/27/19 Unknown History Ibuprofen 200 mg PO Q6HR PRN 01/06/19 01/27/19 Unknown History Levothyroxine [Synthroid] 112 mcg PO DAILY 01/06/19 01/27/19 Unknown History Lisinopril [Prinivil] 5 mg PO HS 01/06/19 01/27/19 Unknown History Amiodarone [Cordarone 200 MG TAB] 200 mg PO QDAY #30 tablet 01/14/19 01/27/19 Unknown Rx Pantoprazole [Protonix TAB] 40 mg PO QDAY #30 tablet 01/14/19 01/27/19 Unknown Rx dilTIAZem CD [Cardizem CD] 180 mg PO QDAY #30 capsule 01/14/19 01/27/19 Unknown Rx Aspirin EC [Aspirin Enteric Coated 81 mg PO QDAY 01/27/19 01/27/19 Unknown Histo ry TAB] Active Meds: Active Medications Amiodarone HCl (Cordarone) 200 mg PO QDAY [facility] Last Admin: 02/06/19 10:36 Dose: 200 mg Documented by: Aspirin (Halfprin Ec) 81 mg PO QDAY [facility] Last Admin: 02/06/19 10:36 Dose: 81 mg Documented by: Cyclobenzaprine HCl (Flexeril) 10 mg PO Q8H PRN PRN Reason: Muscle Spasm Last Admin: 02/04/19 04:15 Dose: 10 mg Documented by: Diltiazem HCl (Cardizem) 30 mg PO Q6HR [facility] Last Admin: 02/06/19 13:00 Dose: 30 mg Documented by: Ferrous Sulfate (Feosol) 325 mg PO DAILY [facility] Last Admin: 02/06/19 10:37 Dose: 325 mg Documented by: Ceftriaxone Sodium (Rocephin/Ns 2 Gm/100 Ml) 2 gm in 100 mls @ 200 mls/hr IV Q 24H [facility]; Protocol Last Admin: 02/06/19 13:00 Dose: 200 mls/hr Documented by: Levothyroxine Sodium (Synthroid) 112 mcg PO DAILY@0600 [facility] Last Admin: 02/06/19 06:42 Dose: 112 mcg Documented by: Metoprolol Tartrate (Lopressor) 2.5 mg IV Q6HR PRN PRN Reason: HR>130 Metoprolol Tartrate (Lopressor) 25 mg PO BID [facility] Last Admin: 02/06/19 10:36 Dose: 25 mg Documented by: Nicotine (Habitrol) 21 mg TD Q24H [facility] Last Admin: 02/05/19 23:36 Dose: 21 mg Documented by: Pantoprazole Sodium (Protonix) 40 mg PO QDAY [facility] Last Admin: 02/06/19 10:36 Dose: 40 mg Documented by: Tramadol HCl (Ultram) 50 mg PO Q6H PRN PRN Reason: Pain, Moderate (4-6) Last Admin: 02/06/19 14:03 Dose: 50 mg Documented by: Review of Systems - Constitutional no fever, no chills - Cardiovascular no chest pain, no shortness of breath - Respiratory no cough - Gastrointestinal no abdominal pain - Muskuloskeletal left: other (left calf pain) - Integumentary wounds Exam Vital Signs Pulse Resp BP Pulse Ox 129 H 31 H 103/58 96 01/27/19 10:00 01/27/19 10:00 01/27/19 10:00 01/27/19 10:00 - General physical appearance Positive: no distress, no pain, other (elderly gentleman) - Respiratory Positive: normal expansion, normal respiratory effort - Cardiovascular Rhythm: irregularly irregular - Integumentary other (large fluid collection on back of left lower leg. No erythema. +tenderness. dark garcia fluid draining from area. no purulent fluid noted) - Neurologic Neurologic: alert and oriented to time, place and person - Psychiatric Psychiatric: appropriate mood/affect, intact judgment & insight Results - Labs 02/03/19 06:20 02/03/19 06:20 - Imaging Additional studies: reviewed reports of extremity duplex studies Assessment and Plan - Patient Problems (1) Rupture of popliteal cyst Current Visit: Yes Status: Acute Plan to address problem: Pt stable. Based on exam and reviewed of chart, patient probably had a recent rupture of a popliteal cyst. Plan to pack the wound to help control drainage. If large enough cavity, may consider wound vac. Will order I&D supplies to bedside. Discussed with patient and . Time=30min
[2019-02-06] MEDS ORDERED: VANCOMYCIN PHARMACY TO DOSE IV SCH (15:00)
[2019-02-06] MEDS ORDERED: VANCOMYCIN 2,000 MG in NACL 0.9% 500 ML 500 ML IV ONE (18:00)
--- NOTE | 2019-02-06 18:13 | Procedure Note ---
Date of procedure: 02/06/19 Pre-op diagnosis: left leg fluid collection Post-op diagnosis: same Procedure: I&D of left leg fluid collection. Procedure, risks, benefits were discussed. Consent was obtained. Timeout was called. Patient was positioned in a left lateral decubitus position. Posterior aspect of left calf had one open wound from which the greyish fluid was draining. Inferior to that there was another area of necrotic skin. This area was prepped. 1% lidocaine with epinephrine was injected into the open wound. Wound/skin was opened sharply with scissors in a T formation to then include the necrotic area inferiorly. I entered the superficial subcutaneous pocket where the large fluid collection was sitting. I ultimately aspirated 1000 mL of the fluid. Wound was irrigated and suctioned. Wound was packed with Kerlex gauze. Patient tolerated the procedure fairly well. There were no complications. Findings: large pocket of greyish fluid in the superficial subcutaneous space Anesthesia: local Surgeon: MARTIN LOPEZ Estimated blood loss: minimal Pathology: none Condition: stable Disposition: floor
[2019-02-06] MEDS: UNASYN/NS 3 GM/100 ML 3 GM/100 ML BAG IV SCH ×2 (18:48→23:14)
[2019-02-06] MEDS: HABITROL TD SCH ×2 (23:13→23:30)
[2019-02-07] MEDS: ULTRAM PO PRN ×3 (02:04→20:34)
[2019-02-07] MEDS: SYNTHROID PO SCH (05:57)
[2019-02-07] MEDS: UNASYN/NS 3 GM/100 ML 3 GM/100 ML BAG IV SCH ×2 (05:57→12:00)
[2019-02-07] MEDS: CARDIZEM PO SCH ×3 (05:57→17:39)
[2019-02-07] MEDS ORDERED: VANCOMYCIN 1,500 MG in NACL 0.9% 500 ML 500 ML IV SCH (10:00)
[2019-02-07] MEDS: LOPRESSOR PO SCH ×2 (10:45→21:11)
[2019-02-07] MEDS: CORDARONE PO SCH (10:45)
[2019-02-07] MEDS: HALFPRIN EC PO SCH (10:45)
[2019-02-07] MEDS: FEOSOL PO SCH (10:45)
[2019-02-07] MEDS: PROTONIX PO SCH (10:45)
--- NOTE | 2019-02-07 10:59 | Progress Note ---
Assessment and Plan Assessment and plan: 78 yo man with a history of afib, hypertension, asthma, hypothyroid, recent GIB with Gastric ulcer s/p endoclip repair who presented to ED on with c/o left leg pains and palpitations. He was previously admitted to [facility] approximately one month ago with similar presentation. An echocardiogram performed during previous admission revealed moderate aortic valve calcification with moderate to severe aortic stenosis. Left ventricular systolic function is normal, EF 60%. 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 pw Afib with RVR, not a candidate for robin due to pud and anemia -cont rate control meds per cardiology -sp drainage of LLE subcutaneous fluid collection 02/06, appeared to be a ruptured popliteal cyst, dc abx on 02/07 -sp iv lasix now improved, now off lasix - hg is stable -continue to wean oxygen -continue PT, planned for [facility] placement Diagnosis PAF with RVR hypercoaguable state Left LLE pain, ruptured popliteal cyst -left leg abscess ruled out -chronic anemia -htn -Acute diastolic heart failure, EF 60% -hx of PUD, seen on recent egd -GERD -acute hypoxic respiratory failure -ataxia/debility History Interval history: LLE pain has improved Review of systems Constitutional: No fevers, no malaise, no joint pains CVS: No chest pain, c/o orthopnea, and dyspnea on exertion, improved GI: No abdominal pain, no diarrhea, no vomiting, no constipation Respiratory: no wheezing, no coughing Hospitalist Physical - Physical exam Narrative exam: General.: Appears well, no distress, nontoxic HEENT: Moist mucous membranes, extraocular muscles intact, no lymphadenopathy Neck: supple Cardiac: S1-S2 heard Lungs: bibasilar crackles Abdomen: soft , nontender, nondistended, bowel sounds positive Extremities: no edema clubbing or cyanosis Skin: LLE wound Neurologic: no gross focal deficits Psych: calm, and cooperative - Constitutional Vitals: Temp Pulse Resp BP Pulse Ox 98.3 F 70 18 120/50 100 02/07/19 05:01 02/07/19 10:45 02/07/19 05:01 02/07/19 10:45 02/07/19 05:01 General appearance: Present: no acute distress Results - Labs CBC & Chem 7: 02/03/19 06:20 02/03/19 06:20 Labs: Laboratory Last Values WBC 18.0 K/mm3 (4.5-11.0) H 02/03/19 06:20 RBC 3.01 M/mm3 (3.65-5.03) L 02/03/19 06:20 Hgb 9.1 gm/dl (11.8-15.2) L 02/03/19 06:20 Hct 28.5 % (35.5-45.6) L 02/03/19 06:20 MCV 95 fl (84-94) H 02/03/19 06:20 MCH 30 pg (28-32) 02/03/19 06:20 MCHC 32 % (32-34) 02/03/19 06:20 RDW 19.0 % (13.2-15.2) H 02/03/19 06:20 Plt Count 378 K/mm3 (140-440) 02/03/19 06:20 Add Manual Diff Complete 01/27/19 10:23 Total Counted 100 01/27/19 10:23 Seg Neutrophils % Vehicle Safety Inspector 01/27/19 10:23 Seg Neuts % (Manual) 90.0 % (40.0-70.0) H 01/27/19 10:23 Band Neutrophils % 0 % 01/27/19 10:23 Lymphocytes % (Manual) 7.0 % (13.4-35.0) L 01/27/19 10:23 Reactive Lymphs % (Man) 0 % 01/27/19 10:23 Monocytes % (Manual) 3.0 % (0.0-7.3) 01/27/19 10:23 Eosinophils % (Manual) 0 % (0.0-4.3) 01/27/19 10:23 Metamyelocytes % 0 % 01/27/19 10:23 Myelocytes % 0 % 01/27/19 10:23 Promyelocytes % 0 % 01/27/19 10:23 Blast Cells % 0 % 01/27/19 10:23 Nucleated RBC % Not Reportable 01/27/19 10:23 Seg Neutrophils # Man 10.7 K/mm3 (1.8-7.7) H 01/27/19 10:23 Band Neutrophils # 0.0 K/mm3 01/27/19 10:23 Lymphocytes # (Manual) 0.8 K/mm3 (1.2-5.4) L 01/27/19 10:23 Abs React Lymphs (Man) 0.0 K/mm3 01/27/19 10:23 Monocytes # (Manual) 0.4 K/mm3 (0.0-0.8) 01/27/19 10:23 Eosinophils # (Manual) 0.0 K/mm3 (0.0-0.4) 01/27/19 10:23 Basophils # (Manual) 0.0 K/mm3 (0.0-0.1) 01/27/19 10:23 Metamyelocytes # 0.0 K/mm3 01/27/19 10:23 Myelocytes # 0.0 K/mm3 01/27/19 10:23 Promyelocytes # 0.0 K/mm3 01/27/19 10:23 Blast Cells # 0.0 K/mm3 01/27/19 10:23 WBC Morphology Not Reportable 01/27/19 10:23 Hypersegmented Neuts Not Reportable 01/27/19 10:23 Hyposegmented Neuts Not Reportable 01/27/19 10:23 Hypogranular Neuts Not Reportable 01/27/19 10:23 Smudge Cells Not Reportable 01/27/19 10:23 Toxic Granulation Not Reportable 01/27/19 10:23 Toxic Vacuolation Not Reportable 01/27/19 10:23 Dohle Bodies Not Reportable 01/27/19 10:23 Pelger-Huet Anomaly Not Reportable 01/27/19 10:23 Eugenio Rods Not Reportable 01/27/19 10:23 Platelet Estimate Consistent w auto 01/27/19 10:23 Clumped Platelets Not Reportable 01/27/19 10:23 Plt Clumps, EDTA Not Reportable 01/27/19 10:23 Large Platelets Not Reportable 01/27/19 10:23 Giant Platelets Rare 01/27/19 10:23 Platelet Satelliting Not Reportable 01/27/19 10:23 Plt Morphology Comment Not Reportable 01/27/19 10:23 RBC Morphology Not Reportable 01/27/19 10:23 Dimorphic RBCs Not Reportable 01/27/19 10:23 Polychromasia Not Reportable 01/27/19 10:23 Hypochromasia Not Reportable 01/27/19 10:23 Poikilocytosis Few 01/27/19 10:23 Anisocytosis Few 01/27/19 10:23 Microcytosis Not Reportable 01/27/19 10:23 Macrocytosis Not Reportable 01/27/19 10:23 Spherocytes Not Reportable 01/27/19 10:23 Pappenheimer Bodies Not Reportable 01/27/19 10:23 Sickle Cells Not Reportable 01/27/19 10:23 Target Cells Not Reportable 01/27/19 10:23 Tear Drop Cells Not Reportable 01/27/19 10:23 Ovalocytes Not Reportable 01/27/19 10:23 Helmet Cells Not Reportable 01/27/19 10:23 Belle-[place] Bodies Not Reportable 01/27/19 10:23 [place] Rings Not Reportable 01/27/19 10:23 Jame Cells Not Reportable 01/27/19 10:23 Bite Cells Not Reportable 01/27/19 10:23 Crenated Cell Not Reportable 01/27/19 10:23 Elliptocytes Rare 01/27/19 10:23 Acanthocytes (Spur) Not Reportable 01/27/19 10:23 Rouleaux Not Reportable 01/27/19 10:23 Hemoglobin C Crystals Not Reportable 01/27/19 10:23 Schistocytes Not Reportable 01/27/19 10:23 Malaria parasites Not Reportable 01/27/19 10:23 Derick Bodies Not Reportable 01/27/19 10:23 Hem Pathologist Commnt No 01/27/19 10:23 Sodium 136 mmol/L (137-145) L 02/03/19 06:20 Potassium 4.8 mmol/L (3.6-5.0) 02/03/19 06:20 Chloride 94.4 mmol/L (98-107) L 02/03/19 06:20 Carbon Dioxide 34 mmol/L (22-30) H D 02/03/19 06:20 Anion Gap 12 mmol/L 02/03/19 06:20 BUN 11 mg/dL (9-20) 02/03/19 06:20 Creatinine 0.3 mg/dL (0.8-1.5) L 02/03/19 06:20 Estimated GFR > 60 ml/min 02/03/19 06:20 BUN/Creatinine Ratio 37 % 02/03/19 06:20 Glucose 98 mg/dL (75-100) 02/03/19 06:20 Calcium 7.9 mg/dL (8.4-10.2) L 02/03/19 06:20 Magnesium 1.80 mg/dL (1.7-2.3) 01/29/19 05:13 Iron 7 ug/dL (49-181) L 01/28/19 07:06 TIBC 92 mcg/dL (250-450) L 01/28/19 07:06 % Saturation 7.61 % 01/28/19 07:06 Transferrin 89 mg/dl (180-329) L 01/28/19 07:06 Total Bilirubin 0.40 mg/dL (0.1-1.2) 01/27/19 10:19 AST 23 units/L (5-40) 01/27/19 10:19 ALT 20 units/L (7-56) 01/27/19 10:19 Alkaline Phosphatase 111 units/L (35-129) 01/27/19 10:19 Troponin T < 0.010 ng/mL (0.00-0.029) 01/27/19 10:19 Total Protein 5.9 g/dL (6.3-8.2) L 01/27/19 10:19 Albumin 1.9 g/dL (3.9-5) L 01/27/19 10:19 Albumin/Globulin Ratio 0.5 % 01/27/19 10:19 Vitamin B12 1887 pg/mL (211-911) H 01/28/19 07:06 RBC Folic Acid >1000 ng/mL (>280) 01/28/19 07:06 TSH 8.080 mlU/mL (0.270-4.200) H 01/28/19 07:06 Free T4 0.76 ng/dL (0.76-1.46) 02/03/19 13:46 Thyroxine (T4) 4.3 ug/dL (4.0-12.0) 02/03/19 13:46 Active Medications - Current Medications Current Medications: Generic Name Dose Route Start Last Admin Trade Name Freq PRN Reason Stop Dose Admin Amiodarone HCl 200 mg 02/05/19 14:00 02/07/19 10:45 Cordarone PO 200 mg QDAY JONI Administration Aspirin 81 mg 01/28/19 10:00 02/07/19 10:45 Halfprin Ec PO 81 mg QDAY JONI Administration Cyclobenzaprine HCl 10 mg 01/30/19 08:30 02/04/19 04:15 Flexeril PO 10 mg Q8H PRN Administration Muscle Spasm Diltiazem HCl 30 mg 02/05/19 14:00 02/07/19 05:57 Cardizem PO 30 mg Q6HR JONI Administration Ferrous Sulfate 325 mg 01/28/19 10:00 02/07/19 10:45 Feosol PO 325 mg DAILY JONI Administration Ampicillin Sodium/Sulbactam Sodium 3 gm in 100 mls @ 200 mls/hr 02/06/19 17:00 02/07/19 05:57 Unasyn/Ns 3 Gm/100 Ml IV 200 mls/hr Q6HR JONI Administration Protocol Vancomycin HCl 1,500 mg/ 530 mls @ 333.333 mls/hr 02/07/19 10:00 02/07/19 10:44 Sodium Chloride IV 333.333 mls/hr Q12HR JONI Administration Levothyroxine Sodium 112 mcg 01/28/19 06:00 02/07/19 05:57 Synthroid PO 112 mcg DAILY@0600 JONI Administration Metoprolol Tartrate 2.5 mg 01/29/19 12:51 Lopressor IV Q6HR PRN HR>130 Metoprolol Tartrate 25 mg 02/05/19 14:00 02/07/19 10:45 Lopressor PO Not Given BID [facility] Nicotine 21 mg 01/29/19 00:23 02/06/19 23:30 Habitrol TD Not Given Q24H [facility] Pantoprazole Sodium 40 mg 01/28/19 10:00 02/07/19 10:45 Protonix PO 40 mg QDAY JONI Administration Tramadol HCl 50 mg 02/05/19 15:44 02/07/19 02:04 Ultram PO 50 mg Q6H PRN Administration Pain, Moderate (4-6) Nutrition/Malnutrition Assess - Dietary Evaluation Nutrition/Malnutrition Findings: Nutrition Notes Start: 01/28/19 15:47 Freq: Status: Active Protocol: Document 02/03/19 10:06 SA (Rec: 02/03/19 10:17 SA [id number]) Co-Sign 02/03/19 10:06 LP Nutrition Notes Initial or Follow up Reassessment Current Diagnosis Decubitus(Pressure Ulcer), Hypertension Other Pertinent Diagnosis Hypothyroidism, LLE edema, GERD Current Diet cardiac Labs/Tests Na: 136 Cr: 0.3 M.9 Pertinent Medications Reviewed Height 5 ft 11 in Weight 90.6 kg [place] Body Weight (kg) 78.18 BMI 27.8 Subjective/Other Information Patient states appetite is good but doesn't like this facilities food. Pt reports eating 50% of meals during hosiptal stay. Pt reports drinking 100% of ONS BID. Pt denies N/V/D. Pt states UBW: 158#. Percent of energy/protein needs met: 88%/75% #1 Nutrition Diagnosis Inadequate oral intake As Evidenced by Signs and Symptoms pt meeting at least 75% of kcal and pro needs via PO and ONS intake Diagnosis Progress(for reassessment Improved documentation) Is patient on ventilator? No Is Patient Ambulatory and/or Out of Bed No REE-([facility]-confined to bed) 05 Calculation Used for Recommendations [facility] Additional Notes Protein Needs: 109-136g (1.2-1 .5g/kg) Fluid Needs: 1 ml/kcal Nutrition Intervention Change Diet Order: Continue current Add Supplement/Snack (indicate name/kcal Ensure Enlive Vanilla or /protein ) Chocolate BID Provides kCal: 700 Provides Protein (gm) 40 Goal #1 Meet at least 75% of calorie and protein needs via PO and ONS intakes Anticipated Discharge Needs: Cardiac diet Follow-Up By: 02/10/19 Additional Comments F/U: PO and ONS intakes
--- NOTE | 2019-02-07 11:23 | Progress Note ---
Assessment and Plan Left calf pain status post IND Atrial fibrillation, paroxysmal on amiodarone and metoprolol patient is not a candidate for oral anticoagulation s/t severe anemia and recent GI bleed. Unilateral LE edema LE venous doppler reports no evidence of DVT Recent GI bleed recent EGD workup revealed gastric ulcer Leukocytosis Chronic Anemia Hypothyroidism Hyponatremia Elevated liver transaminase Chronic lung disease Tobacco abuse Ascending thoracic aorta aneurysm measuring 5cm Continue current treatment plan No changes to medication of present Subjective Date of service: 02/07/19 Principal diagnosis: Abscess Interval history: No acute events overnight Objective Vital Signs Temp Pulse Resp BP Pulse Ox 02/07/19 10:45 70 120/50 02/07/19 05:01 98.3 F 63 18 111/59 100 02/06/19 23:48 98.0 F 65 18 113/55 95 02/06/19 22:00 66 96 02/06/19 19:31 98.4 F 67 18 106/51 97 02/06/19 19:13 60 118/60 02/06/19 16:35 98.1 F 69 18 101/53 95 02/06/19 15:03 18 02/06/19 14:03 20 02/06/19 13:00 66 110/62 02/06/19 12:00 77 - Physical Examination Narrative exam: Vitals reviewed GEN: No acute distress noted HEENT: Carotids 2+ NECK: Supple CVS: S1 and S2 heard no significant murmur or gallop noted LUNGS/CHEST: Normal auscultation ABD: Soft nontender Extremities: No edema noted normal color NEURO: Alert moves all all 4 extremities PSY: Stable General: No Apparent Distress HEENT: Positive: PERRL Neck: Positive: trachea midline Neuro: Positive: Grossly Intact, Weakness Extremities: Present: edema (unilateral) - Imaging and Cardiology EKG: report reviewed (Afib with RVR 130/min)
[2019-02-07] MEDS: DILAUDID IV PRN (16:12)
--- NOTE | 2019-02-07 17:19 | Progress Note ---
Assessment and Plan - Patient Problems (1) Rupture of popliteal cyst Current Visit: Yes Status: Acute Plan to address problem: Pt stable. s/p I&D of left calf fluid collection. Dressing changed today. I wonder if he has persistent tract that is filling the cavity. There was more fluid than I expected. Will plan to place a wound vac on Saturday. If this does not stop draining, may need ortho to eval for cyst excision. Time=10min Subjective Date of service: 02/07/19 Patient Reports: Positive: feels better (able to walk now), pain is less Objective Vital Signs - 12hr 02/07/19 02/07/19 08:00 10:45 Pulse Rate 70 Respiratory 20 Rate [ Generalized] Blood Pressure 120/50 - General physical appearance no distress, no pain - Respiratory normal expansion, normal respiratory effort - Integumentary other (still a fair amount of greyish fluid in the leg cavity. ) - Psychiatric oriented to time, oriented to person, oriented to place, speech is normal, memory intact - Labs 02/03/19 06:20 02/03/19 06:20
[2019-02-08] MEDS: CARDIZEM PO SCH ×4 (00:07→18:04)
[2019-02-08] MEDS: HABITROL TD SCH (00:07)
[2019-02-08] MEDS: ULTRAM PO PRN ×3 (05:36→22:17)
[2019-02-08] MEDS: SYNTHROID PO SCH (05:37)
--- NOTE | 2019-02-08 09:31 | Progress Note ---
Assessment and Plan Assessment and plan: 78 yo man with a history of afib, hypertension, asthma, hypothyroid, recent GIB with Gastric ulcer s/p endoclip repair who presented to ED on with c/o left leg pains and palpitations. He was previously admitted to [facility] approximately one month ago with similar presentation. An echocardiogram performed during previous admission revealed moderate aortic valve calcification with moderate to severe aortic stenosis. Left ventricular systolic function is normal, EF 60%. 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 pw Afib with RVR, not a candidate for robin due to pud and anemia -cont rate control meds per cardiology -sp drainage of LLE subcutaneous fluid collection 02/06, appeared to be a ruptured popliteal cyst, dc abx on 02/07 - input appreciated "Pt stable. s/p I&D of left calf fluid collection. Dressing changed today. I wonder if he has persistent tract that is filling the cavity. There was more fluid than I expected. Will plan to place a wound vac on Saturday. If this does not stop draining, may need ortho to eval for cyst e xcision. " -sp iv lasix now improved, now off lasix - hg is stable -continue to wean oxygen -continue PT, planned for [facility] placement Diagnosis PAF with RVR hypercoaguable state Left LLE pain, ruptured popliteal cyst -left leg abscess ruled out -chronic anemia -htn -Acute diastolic heart failure, EF 60% -hx of PUD, seen on recent egd -GERD -acute hypoxic respiratory failure -ataxia/debility History Interval history: LLE pain has improved Review of systems Constitutional: No fevers, no malaise, no joint pains CVS: No chest pain, c/o orthopnea, and dyspnea on exertion, improved GI: No abdominal pain, no diarrhea, no vomiting, no constipation Respiratory: no wheezing, no coughing Hospitalist Physical - Physical exam Narrative exam: General.: Appears well, no distress, nontoxic HEENT: Moist mucous membranes, extraocular muscles intact, no lymphadenopathy Neck: supple Cardiac: S1-S2 heard Lungs: bibasilar crackles Abdomen: soft , nontender, nondistended, bowel sounds positive Extremities: no edema clubbing or cyanosis Skin: LLE wound , dressing not removed, no surrounding erythema or tenderness Neurologic: no gross focal deficits Psych: calm, and cooperative - Constitutional Vitals: Temp Pulse Resp BP Pulse Ox 97.7 F 63 18 120/59 93 02/08/19 08:07 02/08/19 08:20 02/08/19 08:20 02/08/19 08:07 02/08/19 09:01 General appearance: Present: no acute distress Results - Labs CBC & Chem 7: 02/03/19 06:20 02/03/19 06:20 Labs: Laboratory Last Values WBC 18.0 K/mm3 (4.5-11.0) H 02/03/19 06:20 RBC 3.01 M/mm3 (3.65-5.03) L 02/03/19 06:20 Hgb 9.1 gm/dl (11.8-15.2) L 02/03/19 06:20 Hct 28.5 % (35.5-45.6) L 02/03/19 06:20 MCV 95 fl (84-94) H 02/03/19 06:20 MCH 30 pg (28-32) 02/03/19 06:20 MCHC 32 % (32-34) 02/03/19 06:20 RDW 19.0 % (13.2-15.2) H 02/03/19 06:20 Plt Count 378 K/mm3 (140-440) 02/03/19 06:20 Add Manual Diff Complete 01/27/19 10:23 Total Counted 100 01/27/19 10:23 Seg Neutrophils % Lens Molder 01/27/19 10:23 Seg Neuts % (Manual) 90.0 % (40.0-70.0) H 01/27/19 10:23 Band Neutrophils % 0 % 01/27/19 10:23 Lymphocytes % (Manual) 7.0 % (13.4-35.0) L 01/27/19 10:23 Reactive Lymphs % (Man) 0 % 01/27/19 10:23 Monocytes % (Manual) 3.0 % (0.0-7.3) 01/27/19 10:23 Eosinophils % (Manual) 0 % (0.0-4.3) 01/27/19 10:23 Metamyelocytes % 0 % 01/27/19 10:23 Myelocytes % 0 % 01/27/19 10:23 Promyelocytes % 0 % 01/27/19 10:23 Blast Cells % 0 % 01/27/19 10:23 Nucleated RBC % Not Reportable 01/27/19 10:23 Seg Neutrophils # Man 10.7 K/mm3 (1.8-7.7) H 01/27/19 10:23 Band Neutrophils # 0.0 K/mm3 01/27/19 10:23 Lymphocytes # (Manual) 0.8 K/mm3 (1.2-5.4) L 01/27/19 10:23 Abs React Lymphs (Man) 0.0 K/mm3 01/27/19 10:23 Monocytes # (Manual) 0.4 K/mm3 (0.0-0.8) 01/27/19 10:23 Eosinophils # (Manual) 0.0 K/mm3 (0.0-0.4) 01/27/19 10:23 Basophils # (Manual) 0.0 K/mm3 (0.0-0.1) 01/27/19 10:23 Metamyelocytes # 0.0 K/mm3 01/27/19 10:23 Myelocytes # 0.0 K/mm3 01/27/19 10:23 Promyelocytes # 0.0 K/mm3 01/27/19 10:23 Blast Cells # 0.0 K/mm3 01/27/19 10:23 WBC Morphology Not Reportable 01/27/19 10:23 Hypersegmented Neuts Not Reportable 01/27/19 10:23 Hyposegmented Neuts Not Reportable 01/27/19 10:23 Hypogranular Neuts Not Reportable 01/27/19 10:23 Smudge Cells Not Reportable 01/27/19 10:23 Toxic Granulation Not Reportable 01/27/19 10:23 Toxic Vacuolation Not Reportable 01/27/19 10:23 Dohle Bodies Not Reportable 01/27/19 10:23 Pelger-Huet Anomaly Not Reportable 01/27/19 10:23 Eugenio Rods Not Reportable 01/27/19 10:23 Platelet Estimate Consistent w auto 01/27/19 10:23 Clumped Platelets Not Reportable 01/27/19 10:23 Plt Clumps, EDTA Not Reportable 01/27/19 10:23 Large Platelets Not Reportable 01/27/19 10:23 Giant Platelets Rare 01/27/19 10:23 Platelet Satelliting Not Reportable 01/27/19 10:23 Plt Morphology Comment Not Reportable 01/27/19 10:23 RBC Morphology Not Reportable 01/27/19 10:23 Dimorphic RBCs Not Reportable 01/27/19 10:23 Polychromasia Not Reportable 01/27/19 10:23 Hypochromasia Not Reportable 01/27/19 10:23 Poikilocytosis Few 01/27/19 10:23 Anisocytosis Few 01/27/19 10:23 Microcytosis Not Reportable 01/27/19 10:23 Macrocytosis Not Reportable 01/27/19 10:23 Spherocytes Not Reportable 01/27/19 10:23 Pappenheimer Bodies Not Reportable 01/27/19 10:23 Sickle Cells Not Reportable 01/27/19 10:23 Target Cells Not Reportable 01/27/19 10:23 Tear Drop Cells Not Reportable 01/27/19 10:23 Ovalocytes Not Reportable 01/27/19 10:23 Helmet Cells Not Reportable 01/27/19 10:23 [place] Bodies Not Reportable 01/27/19 10:23 [place] Rings Not Reportable 01/27/19 10:23 Jame Cells Not Reportable 01/27/19 10:23 Bite Cells Not Reportable 01/27/19 10:23 Crenated Cell Not Reportable 01/27/19 10:23 Elliptocytes Rare 01/27/19 10:23 Acanthocytes (Spur) Not Reportable 01/27/19 10:23 Rouleaux Not Reportable 01/27/19 10:23 Hemoglobin C Crystals Not Reportable 01/27/19 10:23 Schistocytes Not Reportable 01/27/19 10:23 Malaria parasites Not Reportable 01/27/19 10:23 Derick Bodies Not Reportable 01/27/19 10:23 Hem Pathologist Commnt No 01/27/19 10:23 Sodium 136 mmol/L (137-145) L 02/03/19 06:20 Potassium 4.8 mmol/L (3.6-5.0) 02/03/19 06:20 Chloride 94.4 mmol/L (98-107) L 02/03/19 06:20 Carbon Dioxide 34 mmol/L (22-30) H D 02/03/19 06:20 Anion Gap 12 mmol/L 02/03/19 06:20 BUN 11 mg/dL (9-20) 02/03/19 06:20 Creatinine 0.3 mg/dL (0.8-1.5) L 02/03/19 06:20 Estimated GFR > 60 ml/min 02/03/19 06:20 BUN/Creatinine Ratio 37 % 02/03/19 06:20 Glucose 98 mg/dL (75-100) 02/03/19 06:20 Calcium 7.9 mg/dL (8.4-10.2) L 02/03/19 06:20 Magnesium 1.80 mg/dL (1.7-2.3) 01/29/19 05:13 Iron 7 ug/dL (49-181) L 01/28/19 07:06 TIBC 92 mcg/dL (250-450) L 01/28/19 07:06 % Saturation 7.61 % 01/28/19 07:06 Transferrin 89 mg/dl (180-329) L 01/28/19 07:06 Total Bilirubin 0.40 mg/dL (0.1-1.2) 01/27/19 10:19 AST 23 units/L (5-40) 01/27/19 10:19 ALT 20 units/L (7-56) 01/27/19 10:19 Alkaline Phosphatase 111 units/L (35-129) 01/27/19 10:19 Troponin T < 0.010 ng/mL (0.00-0.029) 01/27/19 10:19 Total Protein 5.9 g/dL (6.3-8.2) L 01/27/19 10:19 Albumin 1.9 g/dL (3.9-5) L 01/27/19 10:19 Albumin/Globulin Ratio 0.5 % 01/27/19 10:19 Vitamin B12 1887 pg/mL (211-911) H 01/28/19 07:06 RBC Folic Acid >1000 ng/mL (>280) 01/28/19 07:06 TSH 8.080 mlU/mL (0.270-4.200) H 01/28/19 07:06 Free T4 0.76 ng/dL (0.76-1.46) 02/03/19 13:46 Thyroxine (T4) 4.3 ug/dL (4.0-12.0) 02/03/19 13:46 Active Medications - Current Medications Current Medications: Generic Name Dose Route Start Last Admin Trade Name Freq PRN Reason Stop Dose Admin Amiodarone HCl 200 mg 02/05/19 14:00 02/07/19 10:45 Cordarone PO 200 mg QDAY JONI Administration Aspirin 81 mg 01/28/19 10:00 02/07/19 10:45 Halfprin Ec PO 81 mg QDAY JONI Administration Cyclobenzaprine HCl 10 mg 01/30/19 08:30 02/04/19 04:15 Flexeril PO 10 mg Q8H PRN Administration Muscle Spasm Diltiazem HCl 30 mg 02/05/19 14:00 02/08/19 05:37 Cardizem PO 30 mg Q6HR JONI Administration Ferrous Sulfate 325 mg 01/28/19 10:00 02/07/19 10:45 Feosol PO 325 mg DAILY JONI Administration Hydromorphone HCl 0.5 mg 02/07/19 12:37 02/07/19 16:12 Dilaudid IV 0.5 mg DAILY PRN Administration Wound Care Levothyroxine Sodium 112 mcg 01/28/19 06:00 02/08/19 05:37 Synthroid PO 112 mcg DAILY@0600 JONI Administration Metoprolol Tartrate 2.5 mg 01/29/19 12:51 Lopressor IV Q6HR PRN HR>130 Metoprolol Tartrate 25 mg 02/05/19 14:00 02/07/19 21:11 Lopressor PO 25 mg BID JONI Administration Nicotine 21 mg 01/29/19 00:23 02/08/19 00:07 Habitrol TD 21 mg Q24H JONI Administration Pantoprazole Sodium 40 mg 01/28/19 10:00 02/07/19 10:45 Protonix PO 40 mg QDAY JONI Administration Tramadol HCl 50 mg 02/05/19 15:44 02/08/19 05:36 Ultram PO 50 mg Q6H PRN Administration Pain, Moderate (4-6) Nutrition/Malnutrition Assess - Dietary Evaluation Nutrition/Malnutrition Findings: Nutrition Notes Start: 01/28/19 15:47 Freq: Status: Active Protocol: Document 02/03/19 10:06 SA (Rec: 02/03/19 10:17 [id number]) Co-Sign 02/03/19 10:06 LP Nutrition Notes Initial or Follow up Reassessment Current Diagnosis Decubitus(Pressure Ulcer), Hypertension Other Pertinent Diagnosis Hypothyroidism, LLE edema, GERD Current Diet cardiac Labs/Tests Na: 136 Cr: 0.3 M.9 Pertinent Medications Reviewed Height 5 ft 11 in Weight 90.6 kg [place] Body Weight (kg) 78.18 BMI 27.8 Subjective/Other Information Patient states appetite is good but doesn't like this facilities food. Pt reports eating 50% of meals during hosiptal stay. Pt reports drinking 100% of ONS BID. Pt denies N/V/D. Pt states UBW: 158#. Percent of energy/protein needs met: 88%/75% #1 Nutrition Diagnosis Inadequate oral intake As Evidenced by Signs and Symptoms pt meeting at least 75% of kcal and pro needs via PO and ONS intake Diagnosis Progress(for reassessment Improved documentation) Is patient on ventilator? No Is Patient Ambulatory and/or Out of Bed No REE-([facility]-confined to bed) 05 Calculation Used for Recommendations [facility] Additional Notes Protein Needs: 109-136g (1.2-1 .5g/kg) Fluid Needs: 1 ml/kcal Nutrition Intervention Change Diet Order: Continue current Add Supplement/Snack (indicate name/kcal Ensure Enlive Vanilla or /protein ) Chocolate BID Provides kCal: 700 Provides Protein (gm) 40 Goal #1 Meet at least 75% of calorie and protein needs via PO and ONS intakes Anticipated Discharge Needs: Cardiac diet Follow-Up By: 02/10/19 Additional Comments F/U: PO and ONS intakes
[2019-02-08] MEDS: PROTONIX PO SCH (09:53)
[2019-02-08] MEDS: FEOSOL PO SCH (09:53)
[2019-02-08] MEDS: CORDARONE PO SCH (09:53)
[2019-02-08] MEDS: HALFPRIN EC PO SCH (09:53)
[2019-02-08] MEDS: LOPRESSOR PO SCH ×2 (09:54→22:11)
--- NOTE | 2019-02-08 10:18 | Progress Note ---
Assessment and Plan Left calf pain status post I&D Atrial fibrillation, paroxysmal on amiodarone and metoprolol patient is not a candidate for oral anticoagulation s/t severe anemia and recent GI bleed. Unilateral LE edema LE venous doppler reports no evidence of DVT Recent GI bleed recent EGD workup revealed gastric ulcer Leukocytosis Chronic Anemia Hypothyroidism Hyponatremia Elevated liver transaminase Chronic lung disease Tobacco abuse Ascending thoracic aorta aneurysm measuring 5cm Continue current treatment plan No changes to medication of present Subjective Date of service: 02/08/19 Principal diagnosis: Abscess Interval history: No acute events overnight Objective Vital Signs Temp Pulse Pulse Pulse Resp BP BP 02/08/19 09:54 63 120/59 02/08/19 09:01 02/08/19 08:20 63 18 02/08/19 08:07 97.7 F 63 18 120/59 02/08/19 05:39 128/59 02/08/19 05:37 64 128/59 02/08/19 02:47 98.0 F 20 120/59 02/07/19 22:00 71 20 02/07/19 21:11 71 116/56 02/07/19 20:23 97.8 F 71 20 116/56 02/07/19 20:00 97.5 F L 104 H 20 125/89 02/07/19 18:00 73 20 02/07/19 17:39 73 139/65 02/07/19 17:30 98.0 F 73 20 139/65 02/07/19 10:45 70 120/50 Pulse Ox 02/08/19 09:54 02/08/19 09:01 93 02/08/19 08:20 02/08/19 08:07 90 02/08/19 05:39 02/08/19 05:37 02/08/19 02:47 02/07/19 22:00 95 02/07/19 21:11 02/07/19 20:23 95 02/07/19 20:00 94 02/07/19 18:00 96 02/07/19 17:39 02/07/19 17:30 96 02/07/19 10:45 - Physical Examination Narrative exam: Vitals reviewed GEN: No acute distress noted HEENT: Carotids 2+ NECK: Supple CVS: S1 and S2 heard no significant murmur or gallop noted LUNGS/CHEST: Normal auscultation ABD: Soft nontender Extremities: No edema noted normal color NEURO: Alert moves all all 4 extremities PSY: Stable General: No Apparent Distress HEENT: Positive: PERRL Neck: Positive: trachea midline Neuro: Positive: Grossly Intact, Weakness Extremities: Present: edema (unilateral) - Imaging and Cardiology EKG: report reviewed (Afib with RVR 130/min)
--- NOTE | 2019-02-08 12:18 | Progress Note ---
Assessment and Plan - Patient Problems (1) Rupture of popliteal cyst Current Visit: Yes Status: Acute Plan to address problem: Pt stable. s/p I&D of left calf fluid collection. Will plan to place a wound vac on Saturday. Can be discharged after that from my perspective. Then should f/u in wound clinic. Time=10min Subjective Date of service: 02/08/19 Patient Reports: Positive: no new complaints, feels better, pain is less Objective Vital Signs - 12hr 02/08/19 02/08/19 02/08/19 02:47 05:37 05:39 Temperature 98.0 F Pulse Rate 64 Pulse Rate [ Right Radial] Respiratory 20 Rate Blood Pressure 120/59 128/59 128/59 O2 Sat by Pulse Oximetry 02/08/19 02/08/19 02/08/19 08:07 09:01 09:54 Temperature 97.7 F Pulse Rate 63 63 Pulse Rate [ Right Radial] Respiratory 18 Rate Blood Pressure 120/59 120/59 O2 Sat by Pulse 90 93 Oximetry 02/08/19 02/08/19 02/08/19 10:00 11:57 12:03 Temperature Pulse Rate 67 Pulse Rate [ 63 Right Radial] Respiratory 18 18 Rate Blood Pressure 114/56 O2 Sat by Pulse Oximetry - General physical appearance no distress, no pain, other (looks better) - Respiratory normal expansion, normal respiratory effort - Musculoskeletal other (dressing dry and intact on left leg) - Labs 02/03/19 06:20 02/03/19 06:20
[2019-02-08 13:21] LABS: Basophils # (Auto) 0.1 K/mm3 (0.0-0.1); Basophils % (Auto) 0.6 % (0.0-1.8); Eosinophils % (Auto) 0.3 % (0.0-4.3); Hematocrit 30.1 % (35.5-45.6); Hemoglobin 9.5 gm/dl (11.8-15.2); Lymphocytes # (Auto) 0.8 K/mm3 (1.2-5.4); Mean Corpuscular HGB Conc 32 % (32-34); Mean Corpuscular Volume 95 fl (84-94); Monocytes # (Auto) 0.9 K/mm3 (0.0-0.8); Monocytes % (Auto) 7.3 % (0.0-7.3); Platelet Count 368 K/mm3 (140-440); Red Blood Count 3.18 M/mm3 (3.65-5.03); Red Cell Distribution Width 19.5 % (13.2-15.2)
[2019-02-08 13:30] LABS: BUN/Creatinine Ratio 33; Blood Urea Nitrogen 10 mg/dL (9-20); Calcium 8.1 mg/dL (8.4-10.2); Hemolysis Index 2
--- NOTE | 2019-02-08 14:31 | Consultation ---
History of Present Illness - Reason for Consult Consult date: 02/08/19 Left calf fluid collection s/p I&D Requesting physician: CHASE CABRERA - History of Present Illness The patient is a 78-year-old male with history of bilateral knee replacement surgeries, left hip replacement 5, tobacco abuse, COPD presented to the hospital on 01/27/2019 with complaints of palpitations and left lower extremity swelling and pain. He was found to be in atrial fibrillation with rapid ventricular rate that he underwent an ultrasound of bilateral lower extremities which showed no DVT, showed vascular insufficiency of left popliteal artery as well as bilateral ruptured popliteal cysts. A shunt was managed by cardiology for his atrial fibrillation. He was seen by orthopedics who recommended conservative management for the bilateral lower extremity Ceballos's cysts. On 02/06/2019, his left calf started draining spontaneously. He was empirically started on Unasyn and vancomycin. Gen. surgery evaluated patient and performed an I&D. As per the operative note, there was a superficial subcutaneous pocket with a large fluid collection, about 1 L of fluid was drained. Wound was packed. He shouldn't is being planned for possible wound VAC. As per review of the chart, it seems antibiotics. On 02/07/2019. Infectious diseases was consulted to evaluate for additional need for antibiotics. Patient has remained afebrile throughout hospitalization since 01/27/2019. Currently, his only complaint is that of left leg pain. Review of Systems: General: no fevers,chills or rigors HEENT: no new visual disturbance Respiratory: chronic cough and SOB Cardiovascular: No chest pain, syncope Gastrointestinal: No nausea, vomiting or diarrhea Genitourinary: No dysuria or hematuria Musculoskeletal: Pain in both calfs and legs Neurologic: No headaches, seizures Hematologic: No easy bruising or bleeding Endocrine: No night sweats or acute weight loss Skin: negative for rash, jaundice Psychiatric: No suicidal or homicidal ideation Past History Past Medical History: COPD, hypertension, other (asthma, hypothyroid) Past Surgical History: total hip replacement, total knee replacement, Other (mul tiple ortho procedure) Social history: smoking. denies: alcohol abuse Family history: no significant family history Medications and Allergies Allergies Allergy/AdvReac Type Severity Reaction Status Date / Time pregabalin [From Lyrica] AdvReac Unknown Verified 01/05/19 21:43 Home Medications Medication Instructions Recorded Confirmed Last Taken Type Eszopiclone 3 mg PO HS 01/06/19 01/27/19 Unknown History Ferrous Sulfate [Iron 325 MG] 325 mg PO DAILY 01/06/19 01/27/19 Unknown History Ibuprofen 200 mg PO Q6HR PRN 01/06/19 01/27/19 Unknown History Levothyroxine [Synthroid] 112 mcg PO DAILY 01/06/19 01/27/19 Unknown History Lisinopril [Prinivil] 5 mg PO HS 01/06/19 01/27/19 Unknown History Amiodarone [Cordarone 200 MG TAB] 200 mg PO QDAY #30 tablet 01/14/19 01/27/19 Unknown Rx Pantoprazole [Protonix TAB] 40 mg PO QDAY #30 tablet 01/14/19 01/27/19 Unknown Rx dilTIAZem CD [Cardizem CD] 180 mg PO QDAY #30 capsule 01/14/19 01/27/19 Unknown Rx Aspirin EC [Aspirin Enteric Coated 81 mg PO QDAY 01/27/19 01/27/19 Unknown History TAB] Active Meds: Active Medications Amiodarone HCl (Cordarone) 200 mg PO QDAY [facility] Last Admin: 02/08/19 09:53 Dose: 200 mg Documented by: Aspirin (Halfprin Ec) 81 mg PO QDAY [facility] Last Admin: 02/08/19 09:53 Dose: 81 mg Documented by: Cyclobenzaprine HCl (Flexeril) 10 mg PO Q8H PRN PRN Reason: Muscle Spasm Last Admin: 02/04/19 04:15 Dose: 10 mg Documented by: Diltiazem HCl (Cardizem) 30 mg PO Q6HR [facility] Last Admin: 02/08/19 11:57 Dose: Not Given Documented by: Ferrous Sulfate (Feosol) 325 mg PO DAILY [facility] Last Admin: 02/08/19 09:53 Dose: 325 mg Documented by: Hydromorphone HCl (Dilaudid) 0.5 mg IV DAILY PRN PRN Reason: Wound Care Last Admin: 02/07/19 16:12 Dose: 0.5 mg Documented by: Levothyroxine Sodium (Synthroid) 112 mcg PO DAILY@0600 [facility] Last Admin: 02/08/19 05:37 Dose: 112 mcg Documented by: Metoprolol Tartrate (Lopressor) 2.5 mg IV Q6HR PRN PRN Reason: HR>130 Metoprolol Tartrate (Lopressor) 25 mg PO BID [facility] Last Admin: 02/08/19 09:54 Dose: 25 mg Documented by: Nicotine (Habitrol) 21 mg TD Q24H [facility] Last Admin: 02/08/19 00:07 Dose: 21 mg Documented by: Pantoprazole Sodium (Protonix) 40 mg PO QDAY [facility] Last Admin: 02/08/19 09:53 Dose: 40 mg Documented by: Tramadol HCl (Ultram) 50 mg PO Q6H PRN PRN Reason: Pain, Moderate (4-6) Last Admin: 02/08/19 12:03 Dose: 50 mg Documented by: Physical Examination - Physical Exam Narrative exam: Physical Exam: Constitutional: Alert, cooperative. No acute distress Head, Ears, Nose: Normocephalic, atraumatic. External ears, nose normal Eyes: Conjunctivae/corneas clear. No icterus. No ptosis. Neck: Supple, no meningeal signs Oral: dentures +, no thrush Cardiovascular: S1, S2 normal. Respiratory: Good air entry, clear to auscultation bilaterally GI: Soft, non-tender; bowel sounds normal. No peritoneal signs Musculoskeletal: Left leg in compressive dressing, b/l TKA scars well healed. Trace pedal edema b/l Skin: No rash or abscess Hem/Lymphatic: No palpable cervical or supraclavicular nodes. No lymphangitis Psych: Mood ok. Affect flat Neurological: Awake, alert, oriented. - Constitutional Vitals: Vital Signs Temp Pulse Resp BP Pulse Ox 97.5 F L 68 18 120/61 91 02/08/19 13:30 02/08/19 13:30 02/08/19 13:30 02/08/19 13:30 02/08/19 13:30 Temperature -Last 24 Hours Temperature 97.5 F Temperature 97.7 F Temperature 98.0 F Temperature 97.8 F Temperature 97.5 F Temperature 97.8 F Temperature 98.0 F Results - Labs CBC & Chem 7: 02/08/19 13:01 02/08/19 13:01 Labs: Abnormal lab results 02/08/19 02/08/19 Range/Units 13:01 13:01 WBC 13.0 H (4.5-11.0) K/mm3 RBC 3.18 L (3.65-5.03) M/mm3 Hgb 9.5 L (11.8-15.2) gm/dl Hct 30.1 L (35.5-45.6) % MCV 95 H (84-94) fl RDW 19.5 H (13.2-15.2) % Lymph % (Auto) 6.0 L (13.4-35.0) % Lymph # 0.8 L (1.2-5.4) K/mm3 [place] # 0.9 H (0.0-0.8) K/mm3 Seg Neutrophils % 85.8 H (40.0-70.0) % Seg Neutrophils # 11.2 H (1.8-7.7) K/mm3 Sodium 135 L (137-145) mmol/L Chloride 90.5 L (98-107) mmol/L Carbon Dioxide 39 H (22-30) mmol/L Creatinine 0.3 L (0.8-1.5) mg/dL Glucose 136 H (75-100) mg/dL Calcium 8.1 L (8.4-10.2) mg/dL - Imaging and Cardiology Chest x-ray: report reviewed, image reviewed (no infiltrate) Venous US: report reviewed, image reviewed (no DVT) Assessment and Plan Cultures: 01/28/2019 MRSA nasal culture: Negative 01/30/2019 blood culture: No growth 02/06/2019 left leg fluid culture: No growth in 48 hours A/P: 78-year-old male with history of bilateral knee replacement surgeries, left hip replacement 5, tobacco abuse, COPD admitted with: 1) Bilateral popliteal/Ceballos's cyst with left calf fluid collection: Status post I&D on 02/06/2019. No fevers, no growth on cultures in 48 hours with no prior antibiotic exposure. Leucocytosis likely reactive, improving. Would continue to hold off on antibiotics. 2) Peripheral vascular disease: Left lower extremity. Was seen by Dr. Rolon. 3) Tobacco abuse 4) A.fib: cardiology following. No anticoagulation due to anemia and h/o GI bleed. Recs: no need for antibiotics follow up cultures Dr. Renato abdi tomorrow MD Alena Castro [facility] C: [phone] O: [phone] F: [phone]
[2019-02-08] MEDS: FLEXERIL PO PRN (16:08)
[2019-02-09] MEDS: CARDIZEM PO SCH ×5 (00:24→23:43)
[2019-02-09] MEDS: HABITROL TD SCH ×2 (01:13→23:43)
[2019-02-09] MEDS: SYNTHROID PO SCH (05:23)
[2019-02-09] MEDS: ULTRAM PO PRN ×3 (05:38→22:30)
[2019-02-09] MEDS: LOPRESSOR PO SCH ×2 (09:19→22:30)
[2019-02-09] MEDS: CORDARONE PO SCH (09:19)
[2019-02-09] MEDS: FEOSOL PO SCH (09:19)
[2019-02-09] MEDS: PROTONIX PO SCH (09:20)
[2019-02-09] MEDS: HALFPRIN EC PO SCH (09:20)
--- NOTE | 2019-02-09 10:57 | Progress Note ---
Assessment and Plan Generalized pain -chief complaint Atrial fibrillation, paroxysmal on amiodarone and metoprolol patient is not a candidate for oral anticoagulation s/t severe anemia and recent GI bleed. Unilateral LE edema LE venous doppler reports no evidence of DVT Popliteal cyst Recent GI bleed recent EGD workup revealed gastric ulcer Leukocytosis Chronic Anemia Hypothyroidism Hyponatremia Elevated liver transaminase Chronic lung disease Tobacco abuse Ascending thoracic aorta aneurysm measuring 5cm An echocardiogram 12/2018 reveal moderate aortic valve calcification with moderate to severe aortic stenosis. Left ventricular systolic function is normal, EF 60%. Small fixed apical wall defect, no reversible ischemia on MPI done 01/2018. Recommend: Continue diltiazem, metoprolol and amiodarone for suppression of paroxysmal atrial fibrillation. Subjective Date of service: 02/09/19 Principal diagnosis: Abscess Interval history: Patient has no cardiac complaints. Objective Vital Signs Temp Pulse Resp BP Pulse Ox 02/09/19 09:19 114 H 123/64 02/09/19 09:13 99 02/09/19 07:41 98.2 F 114 H 20 123/64 94 02/09/19 05:25 65 02/09/19 02:27 98.1 F 65 18 107/61 95 02/09/19 00:24 78 02/09/19 00:23 70 95 02/08/19 22:11 117 H 109/61 02/08/19 19:24 97.9 F 117 H 18 109/61 96 02/08/19 18:05 132/65 02/08/19 18:04 73 132/65 02/08/19 13:30 97.5 F L 68 18 120/61 91 02/08/19 12:03 18 02/08/19 11:57 67 114/56 02/08/19 11:56 114/56 - Physical Examination General: No Apparent Distress HEENT: Positive: PERRL Neck: Positive: trachea midline Cardiac: Positive: irregularly irregular Lungs: Positive: Decreased Breath Sounds, Rhonchi Neuro: Positive: Grossly Intact, Weakness Extremities: Present: edema (unilateral) - Labs and Meds CBC 02/08/19 Range/Units 13:01 WBC 13.0 H (4.5-11.0) K/mm3 RBC 3.18 L (3.65-5.03) M/mm3 Hgb 9.5 L (11.8-15.2) gm/dl Hct 30.1 L (35.5-45.6) % Plt Count 368 (140-440) K/mm3 Lymph # 0.8 L (1.2-5.4) K/mm3 [place] # 0.9 H (0.0-0.8) K/mm3 Eos # 0.0 (0.0-0.4) K/mm3 Baso # 0.1 (0.0-0.1) K/mm3 Comprehensive Metabolic Panel 02/08/19 Range/Units 13:01 Sodium 135 L (137-145) mmol/L Potassium 4.6 (3.6-5.0) mmol/L Chloride 90.5 L (98-107) mmol/L Carbon Dioxide 39 H (22-30) mmol/L BUN 10 (9-20) mg/dL Creatinine 0.3 L (0.8-1.5) mg/dL Glucose 136 H (75-100) mg/dL Calcium 8.1 L (8.4-10.2) mg/dL
--- NOTE | 2019-02-09 13:02 | Progress Note ---
Assessment and Plan Assessment and plan: 78 yo man with a history of afib, hypertension, asthma, hypothyroid, recent GIB with Gastric ulcer s/p endoclip repair who presented to ED on with c/o left leg pains and palpitations. He was previously admitted to [facility] approximately one month ago with similar presentation. An echocardiogram performed during previous admission revealed moderate aortic valve calcification with moderate to severe aortic stenosis. Left ventricular systolic function is normal, EF 60%. 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 Pt continues to experience A-Fib RVR with periods of conversion to SR. Amiodarone and Cardizem drips are off and he is on PO Amiodarone and Cardizem now. On 02/05 pt had a few borderline low BP readings. His Cardizem and Lopressor was held. He is presently in sinus rhythm. Atrial fibrillation with RVR D/C IV Amiodarone gtt Transitioned to PO Amiodarone IV Diltizam ended on 02/04 Continue PO Diltizam Cardiology following and managing Left Leg Pain Doppler 01/28 negative for DVT Vascular/IR recommendation: "The patient has bilateral lower extremity swelling. Additionally, the patient has had extensive surgical repairs to his knees. Ultrasound demonstrates no evidence of DVT however, the patient has bilateral ruptured Ceballos's cyst. We'll consult orthopedic surgery for further evaluation. We'll evaluate patient for venous option with reflux for venous insufficiency which may be contributing to his leg swelling however, optimizing the patient's cardiac output may be most beneficial in reducing his fluid retention." Abscess- soft tissue infection Sp drainage of LLE subcutaneous fluid collection 02/06, appeared to be a ruptured popliteal cyst, GS input appreciated "Pt stable. s/p I&D of left calf fluid collection. Dressing changed today. I wonder if he has persistent tract that is filling the cavity. There was more fluid than I expected. Will plan to place a wound vac on Saturday. If this does not stop draining, may need ortho to eval for cyst excision. " Wound Vac application pending Discontinued Unasyn and Vancomycin on 02/07 ID consulted, and recommendations appreciated Hypertension Continue Lopressor Continue to monitor BP Cardiology following and managing History of GERD On Protonix Acute hypoxic respiratory failure Currently on supplemental O2 Wean as tolerated Anemia hx of GI bleed Recent EGD revealed gastric ulcers Hgb on admission 8.6/26.1 Hgb stable Continue to monitor Chronic Pain Continue pain management Discontinued Roxicodone On tramadol DVT PPX On Lovenox full code Disposition Plan: pending SNF placement History Interval history: Pt is seen on the [facility] unit. He is pending application of wound vac to left left. There were no acute overnight events. Hospitalist Physical - Physical exam Narrative exam: General appearance: Present: no acute distress - EENT Eyes: Present: PERRL, EOM intact ENT: hearing intact - Neck Neck: Present: supple, normal ROM - Respiratory Respiratory effort: normal Respiratory: bilateral: CTA - Cardiovascular Rhythm: regular Heart Sounds: Present: S1 & S2 - Extremities Extremities: pulses intact, No edema Extremity abnormal: deformity Peripheral Pulses: within normal limits - Abdominal General gastrointestinal: Present: soft, non-tender Male genitourinary: Present: deferred - Rectal Rectal Exam: deferred - Integumentary Integumentary: left lower leg wound, Present: warm, dry - Musculoskeletal Musculoskeletal: strength equal bilaterally - Psychiatric Psychiatric: appropriate mood/affect - Neurologic Neurologic: CNII-XII intac - Constitutional Vitals: Temp Pulse Resp BP Pulse Ox 98.2 F 112 H 20 107/74 99 02/09/19 07:41 02/09/19 11:54 02/09/19 11:55 02/09/19 11:54 02/09/19 10:00 General appearance: Present: no acute distress Results - Labs CBC & Chem 7: 02/08/19 13:01 02/08/19 13:01 Labs: Laboratory Last Values WBC 13.0 K/mm3 (4.5-11.0) H 02/08/19 13:01 RBC 3.18 M/mm3 (3.65-5.03) L 02/08/19 13:01 Hgb 9.5 gm/dl (11.8-15.2) L 02/08/19 13:01 Hct 30.1 % (35.5-45.6) L 02/08/19 13:01 MCV 95 fl (84-94) H 02/08/19 13:01 MCH 30 pg (28-32) 02/08/19 13:01 MCHC 32 % (32-34) 02/08/19 13:01 RDW 19.5 % (13.2-15.2) H 02/08/19 13:01 Plt Count 368 K/mm3 (140-440) 02/08/19 13:01 Lymph % (Auto) 6.0 % (13.4-35.0) L 02/08/19 13:01 [place] % (Auto) 7.3 % (0.0-7.3) 02/08/19 13:01 Eos % (Auto) 0.3 % (0.0-4.3) 02/08/19 13:01 Baso % (Auto) 0.6 % (0.0-1.8) 02/08/19 13:01 Lymph # 0.8 K/mm3 (1.2-5.4) L 02/08/19 13:01 [place] # 0.9 K/mm3 (0.0-0.8) H 02/08/19 13:01 Eos # 0.0 K/mm3 (0.0-0.4) 02/08/19 13:01 Baso # 0.1 K/mm3 (0.0-0.1) 02/08/19 13:01 Add Manual Diff Complete 01/27/19 10:23 Total Counted 100 01/27/19 10:23 Seg Neutrophils % 85.8 % (40.0-70.0) H 02/08/19 13:01 Seg Neuts % (Manual) 90.0 % (40.0-70.0) H 01/27/19 10:23 Band Neutrophils % 0 % 01/27/19 10:23 Lymphocytes % (Manual) 7.0 % (13.4-35.0) L 01/27/19 10:23 Reactive Lymphs % (Man) 0 % 01/27/19 10:23 Monocytes % (Manual) 3.0 % (0.0-7.3) 01/27/19 10:23 Eosinophils % (Manual) 0 % (0.0-4.3) 01/27/19 10:23 Metamyelocytes % 0 % 01/27/19 10:23 Myelocytes % 0 % 01/27/19 10:23 Promyelocytes % 0 % 01/27/19 10:23 Blast Cells % 0 % 01/27/19 10:23 Nucleated RBC % Not Reportable 01/27/19 10:23 Seg Neutrophils # 11.2 K/mm3 (1.8-7.7) H 02/08/19 13:01 Seg Neutrophils # Man 10.7 K/mm3 (1.8-7.7) H 01/27/19 10:23 Band Neutrophils # 0.0 K/mm3 01/27/19 10:23 Lymphocytes # (Manual) 0.8 K/mm3 (1.2-5.4) L 01/27/19 10:23 Abs React Lymphs (Man) 0.0 K/mm3 01/27/19 10:23 Monocytes # (Manual) 0.4 K/mm3 (0.0-0.8) 01/27/19 10:23 Eosinophils # (Manual) 0.0 K/mm3 (0.0-0.4) 01/27/19 10:23 Basophils # (Manual) 0.0 K/mm3 (0.0-0.1) 01/27/19 10:23 Metamyelocytes # 0.0 K/mm3 01/27/19 10:23 Myelocytes # 0.0 K/mm3 01/27/19 10:23 Promyelocytes # 0.0 K/mm3 01/27/19 10:23 Blast Cells # 0.0 K/mm3 01/27/19 10:23 WBC Morphology Not Reportable 01/27/19 10:23 Hypersegmented Neuts Not Reportable 01/27/19 10:23 Hyposegmented Neuts Not Reportable 01/27/19 10:23 Hypogranular Neuts Not Reportable 01/27/19 10:23 Smudge Cells Not Reportable 01/27/19 10:23 Toxic Granulation Not Reportable 01/27/19 10:23 Toxic Vacuolation Not Reportable 01/27/19 10:23 Dohle Bodies Not Reportable 01/27/19 10:23 Pelger-Huet Anomaly Not Reportable 01/27/19 10:23 Eugenio Rods Not Reportable 01/27/19 10:23 Platelet Estimate Consistent w auto 01/27/19 10:23 Clumped Platelets Not Reportable 01/27/19 10:23 Plt Clumps, EDTA Not Reportable 01/27/19 10:23 Large Platelets Not Reportable 01/27/19 10:23 Giant Platelets Rare 01/27/19 10:23 Platelet Satelliting Not Reportable 01/27/19 10:23 Plt Morphology Comment Not Reportable 01/27/19 10:23 RBC Morphology Not Reportable 01/27/19 10:23 Dimorphic RBCs Not Reportable 01/27/19 10:23 Polychromasia Not Reportable 01/27/19 10:23 Hypochromasia Not Reportable 01/27/19 10:23 Poikilocytosis Few 01/27/19 10:23 Anisocytosis Few 01/27/19 10:23 Microcytosis Not Reportable 01/27/19 10:23 Macrocytosis Not Reportable 01/27/19 10:23 Spherocytes Not Reportable 01/27/19 10:23 Pappenheimer Bodies Not Reportable 01/27/19 10:23 Sickle Cells Not Reportable 01/27/19 10:23 Target Cells Not Reportable 01/27/19 10:23 Tear Drop Cells Not Reportable 01/27/19 10:23 Ovalocytes Not Reportable 01/27/19 10:23 Helmet Cells Not Reportable 01/27/19 10:23 [place] Bodies Not Reportable 01/27/19 10:23 [place] Rings Not Reportable 01/27/19 10:23 [place] Cells Not Reportable 01/27/19 10:23 Bite Cells Not Reportable 01/27/19 10:23 Crenated Cell Not Reportable 01/27/19 10:23 Elliptocytes Rare 01/27/19 10:23 Acanthocytes (Spur) Not Reportable 01/27/19 10:23 Rouleaux Not Reportable 01/27/19 10:23 Hemoglobin C Crystals Not Reportable 01/27/19 10:23 Schistocytes Not Reportable 01/27/19 10:23 Malaria parasites Not Reportable 01/27/19 10:23 Derick Bodies Not Reportable 01/27/19 10:23 Hem Pathologist Commnt No 01/27/19 10:23 Sodium 135 mmol/L (137-145) L 02/08/19 13:01 Potassium 4.6 mmol/L (3.6-5.0) 02/08/19 13:01 Chloride 90.5 mmol/L (98-107) L 02/08/19 13:01 Carbon Dioxide 39 mmol/L (22-30) H 02/08/19 13:01 Anion Gap 10 mmol/L 02/08/19 13:01 BUN 10 mg/dL (9-20) 02/08/19 13:01 Creatinine 0.3 mg/dL (0.8-1.5) L 02/08/19 13:01 Estimated GFR > 60 ml/min 02/08/19 13:01 BUN/Creatinine Ratio 33 % 02/08/19 13:01 Glucose 136 mg/dL (75-100) H 02/08/19 13:01 Calcium 8.1 mg/dL (8.4-10.2) L 02/08/19 13:01 Magnesium 1.80 mg/dL (1.7-2.3) 01/29/19 05:13 Iron 7 ug/dL (49-181) L 01/28/19 07:06 TIBC 92 mcg/dL (250-450) L 01/28/19 07:06 % Saturation 7.61 % 01/28/19 07:06 Transferrin 89 mg/dl (180-329) L 01/28/19 07:06 Total Bilirubin 0.40 mg/dL (0.1-1.2) 01/27/19 10:19 AST 23 units/L (5-40) 01/27/19 10:19 ALT 20 units/L (7-56) 01/27/19 10:19 Alkaline Phosphatase 111 units/L (35-129) 01/27/19 10:19 Troponin T < 0.010 ng/mL (0.00-0.029) 01/27/19 10:19 Total Protein 5.9 g/dL (6.3-8.2) L 01/27/19 10:19 Albumin 1.9 g/dL (3.9-5) L 01/27/19 10:19 Albumin/Globulin Ratio 0.5 % 01/27/19 10:19 Vitamin B12 1887 pg/mL (211-911) H 01/28/19 07:06 RBC Folic Acid >1000 ng/mL (>280) 01/28/19 07:06 TSH 8.080 mlU/mL (0.270-4.200) H 01/28/19 07:06 Free T4 0.76 ng/dL (0.76-1.46) 02/03/19 13:46 Thyroxine (T4) 4.3 ug/dL (4.0-12.0) 02/03/19 13:46 Active Medications - Current Medications Current Medications: Generic Name Dose Route Start Last Admin Trade Name Freq PRN Reason Stop Dose Admin Amiodarone HCl 200 mg 02/05/19 14:00 02/09/19 09:19 Cordarone PO 200 mg QDAY JONI Administration Aspirin 81 mg 01/28/19 10:00 02/09/19 09:20 Halfprin Ec PO 81 mg QDAY JONI Administration Cyclobenzaprine HCl 10 mg 01/30/19 08:30 02/08/19 16:08 Flexeril PO 10 mg Q8H PRN Administration Muscle Spasm Diltiazem HCl 30 mg 02/05/19 14:00 02/09/19 11:54 Cardizem PO 30 mg Q6HR JONI Administration Ferrous Sulfate 325 mg 01/28/19 10:00 02/09/19 09:19 Feosol PO 325 mg DAILY JONI Administration Hydromorphone HCl 0.5 mg 02/07/19 12:37 02/07/19 16:12 Dilaudid IV 0.5 mg DAILY PRN Administration Wound Care Levothyroxine Sodium 112 mcg 01/28/19 06:00 02/09/19 05:23 Synthroid PO 112 mcg DAILY@0600 JONI Administration Metoprolol Tartrate 2.5 mg 01/29/19 12:51 Lopressor IV Q6HR PRN HR>130 Metoprolol Tartrate 25 mg 02/05/19 14:00 02/09/19 09:19 Lopressor PO 25 mg BID JONI Administration Nicotine 21 mg 01/29/19 00:23 02/09/19 01:13 Habitrol TD 21 mg Q24H JONI Administration Pantoprazole Sodium 40 mg 01/28/19 10:00 02/09/19 09:20 Protonix PO 40 mg QDAY JONI Administration Tramadol HCl 50 mg 02/05/19 15:44 02/09/19 11:55 Ultram PO 50 mg Q6H PRN Administration Pain, Moderate (4-6) Nutrition/Malnutrition Assess - Dietary Evaluation Nutrition/Malnutrition Findings: Nutrition Notes Start: 01/28/19 15:47 Freq: Status: Active Protocol: Document 02/03/19 10:06 SA (Rec: 02/03/19 10:17 SA [id number]) Co-Sign 02/03/19 10:06 LP Nutrition Notes Initial or Follow up Reassessment Current Diagnosis Decubitus(Pressure Ulcer), Hypertension Other Pertinent Diagnosis Hypothyroidism, LLE edema, GERD Current Diet cardiac Labs/Tests Na: 136 Cr: 0.3 M.9 Pertinent Medications Reviewed Height 5 ft 11 in Weight 90.6 kg [place] Body Weight (kg) 78.18 BMI 27.8 Subjective/Other Information Patient states appetite is good but doesn't like this facilities food. Pt reports eating 50% of meals during hosiptal stay. Pt reports drinking 100% of ONS BID. Pt denies N/V/D. Pt states UBW: 158#. Percent of energy/protein needs met: 88%/75% #1 Nutrition Diagnosis Inadequate oral intake As Evidenced by Signs and Symptoms pt meeting at least 75% of kcal and pro needs via PO and ONS intake Diagnosis Progress(for reassessment Improved documentation) Is patient on ventilator? No Is Patient Ambulatory and/or Out of Bed No REE-([facility]-confined to bed) 05 Calculation Used for Recommendations [facility] Additional Notes Protein Needs: 109-136g (1.2-1 .5g/kg) Fluid Needs: 1 ml/kcal Nutrition Intervention Change Diet Order: Continue current Add Supplement/Snack (indicate name/kcal Ensure Enlive Vanilla or /protein ) Chocolate BID Provides kCal: 700 Provides Protein (gm) 40 Goal #1 Meet at least 75% of calorie and protein needs via PO and ONS intakes Anticipated Discharge Needs: Cardiac diet Follow-Up By: 02/10/19 Additional Comments F/U: PO and ONS intakes
--- NOTE | 2019-02-09 15:43 | Progress Note ---
Assessment and Plan Cultures: 01/28/2019 MRSA nasal culture: Negative 01/30/2019 blood culture: No growth 02/06/2019 left leg fluid culture: No growth in 48 hours wound culture no growth A/P: 78-year-old male with history of bilateral knee replacement surgeries, left hip replacement 5, tobacco abuse, COPD admitted with: 1) Bilateral popliteal/Ceballos's cyst with left calf fluid collection: Status post I&D on 02/06/2019. Wound cultures no growth. No fevers, no growth on cultures in 48 hours with no prior antibiotic exposure. Leucocytosis likely reactive, improving. Doppler 01/28 negative for DVT. 2) Peripheral vascular disease: Left lower extremity. Was seen by Dr. Rolon. 3) Tobacco abuse 4) A.fib: cardiology following. No anticoagulation due to anemia and h/o GI bleed. Recs: continue holding off antibiotics follow up cultures pain management Misty Weaver MD Infectious Diseases [facility] M [phone] O [phone] Subjective Date of service: 02/09/19 Principal diagnosis: Abscess Interval history: Still c/o right leg pain 10 of 10 no fever. Asking for pain meds. No fever. ROS: as above rest negative. Objective - Exam Narrative Exam: General appearance: Alert in NAD, conversant Eyes: anicteric sclerae, moist conjunctivae; no lid-lag; PERRLA HENT: Atraumatic; oropharynx clear. 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 Neuro: alert and oriented x 3. Moving all extermities - Constitutional Vitals: Vital Signs Temp Pulse Resp BP Pulse Ox 98.0 F 67 20 102/48 97 02/09/19 13:36 02/09/19 13:36 02/09/19 13:36 02/09/19 15:24 02/09/19 13:36 Temperature -Last 24 Hours Temperature 98.0 F Temperature 98.2 F Temperature 98.1 F Temperature 97.9 F - Labs CBC & Chem 7: 02/08/19 13:01 02/08/19 13:01
[2019-02-09] MEDS ORDERED: MORPHINE IV ONE (16:13)
--- NOTE | 2019-02-09 18:13 | Progress Note ---
Assessment and Plan - Patient Problems (1) Rupture of popliteal cyst Current Visit: Yes Status: Acute Plan to address problem: Pt stable. s/p I&D of left calf fluid collection. The original plan was for the wound care nurse to place a wound VAC. After seeing the patient, she and I discussed the case. It would be better if we could open up the wound further to get a better result with the wound VAC. I have discussed this with the patient. He would like to take some time and think about it. I recommend that we go to the operating room, do a large incision under sedation, and debridement tissue as needed. After that, I would place a wound back in the operating room. I will check back tomorrow to see if he has made a decision. Time=10min Subjective Date of service: 02/09/19 Patient Reports: Positive: no new complaints, feels better, pain is less Objective Vital Signs - 12hr 02/09/19 02/09/19 02/09/19 07:41 09:13 09:19 Temperature 98.2 F Pulse Rate 114 H 114 H Pulse Rate [ Right Radial] Respiratory 20 Rate Blood Pressure 123/64 123/64 O2 Sat by Pulse 94 99 Oximetry 02/09/19 02/09/19 02/09/19 10:00 11:53 11:54 Temperature Pulse Rate 112 H Pulse Rate [ 114 H Right Radial] Respiratory 20 Rate Blood Pressure 107/74 107/74 O2 Sat by Pulse 99 Oximetry 02/09/19 02/09/19 02/09/19 11:55 13:36 15:24 Temperature 98.0 F Pulse Rate 67 Pulse Rate [ Right Radial] Respiratory 20 20 Rate Blood Pressure 109/56 102/48 O2 Sat by Pulse 97 Oximetry 02/09/19 02/09/19 02/09/19 16:08 17:49 17:50 Temperature Pulse Rate 71 Pulse Rate [ Right Radial] Respiratory 20 Rate Blood Pressure 122/75 122/75 O2 Sat by Pulse Oximetry - General physical appearance no distress, no pain - Respiratory normal expansion, normal respiratory effort - Musculoskeletal other (left leg dressing dry and intact. ) - Psychiatric oriented to time, oriented to person, oriented to place, speech is normal, memory intact - Labs 02/08/19 13:01 02/08/19 13:01
[2019-02-10] MEDS: FLEXERIL PO PRN ×2 (02:59→19:03)
[2019-02-10] MEDS: ULTRAM PO PRN ×3 (05:39→15:57)
[2019-02-10] MEDS: SYNTHROID PO SCH (05:40)
[2019-02-10] MEDS: CARDIZEM PO SCH ×3 (05:40→18:34)
--- NOTE | 2019-02-10 08:32 | Progress Note ---
Assessment and Plan Cultures: 01/28/2019 MRSA nasal culture: Negative 01/30/2019 blood culture: No growth 02/06/2019 left leg fluid culture: No growth wound culture no growth A/P: 78-year-old male with history of bilateral knee replacement surgeries, left hip replacement 5, tobacco abuse, COPD admitted with: 1) Bilateral popliteal/Ceballos's cyst with left calf fluid collection: Status post I&D on 02/06/2019. Wound cultures no growth. No fevers, no growth on cultures with no prior antibiotic exposure. Leukocytosis likely reactive, continuing. 2) Peripheral vascular disease: Left lower extremity. Duplex Scan on 01/28/19 shows greater than 75% stenosis at the left DIMPLE and hemodynamically significant stenosis in the left [employer]. Negative for DVT. 3) Tobacco abuse 4) A.fib: cardiology following. No anticoagulation due to anemia and h/o GI bleed. Recs: Continue to monitor off antibiotics pain management consider vascular evaluation in light of persistent left leg pain and Doppler report on 01/28 showing 75% stenosis [facility] M: [phone] O:[phone] Subjective Date of service: 02/10/19 Principal diagnosis: Abscess Interval history: Patient seen and examined. Complaining of left leg pain, 7/10 on numberic pain scale. No fevers Objective - Exam Narrative Exam: General appearance: Alert in NAD, conversant. Acute distress, left leg pain Eyes: anicteric sclerae, moist conjunctivae; no lid-lag; PERRLA HENT: Atraumatic; oropharynx clear. 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 Neuro: alert and oriented x 3. Moving all extermities - Constitutional Vitals: Vital Signs Temp Pulse Resp BP Pulse Ox 97.5 F L 70 20 106/50 90 02/10/19 07:32 02/10/19 07:33 02/10/19 07:32 02/10/19 07:32 02/10/19 07:33 Temperature -Last 24 Hours Temperature 97.5 F Temperature 99.9 F Temperature 99.4 F Temperature 98.0 F - Labs CBC & Chem 7: 02/10/19 09:11 02/08/19 13:01
[2019-02-10] MEDS: HALFPRIN EC PO SCH (10:03)
[2019-02-10] MEDS: FEOSOL PO SCH (10:03)
[2019-02-10] MEDS: LOPRESSOR PO SCH ×2 (10:04→22:44)
[2019-02-10] MEDS: CORDARONE PO SCH (10:04)
[2019-02-10 10:19] LABS: Basophils # (Auto) 0.1 K/mm3 (0.0-0.1); Eosinophils % (Auto) 0.3 % (0.0-4.3); Hematocrit 27.4 % (35.5-45.6); Hemoglobin 8.8 gm/dl (11.8-15.2); Lymphocytes # (Auto) 1.3 K/mm3 (1.2-5.4); Lymphocytes % (Auto) 9.7 % (13.4-35.0); Mean Corpuscular HGB Conc 32 % (32-34); Mean Corpuscular Volume 93 fl (84-94); Monocytes # (Auto) 1.2 K/mm3 (0.0-0.8); Monocytes % (Auto) 9.1 % (0.0-7.3); Platelet Count 384 K/mm3 (140-440); Red Blood Count 2.93 M/mm3 (3.65-5.03)
[2019-02-10] MEDS: PROTONIX PO SCH (10:41)
--- NOTE | 2019-02-10 10:54 | Progress Note ---
Assessment and Plan Generalized pain -chief complaint Atrial fibrillation, paroxysmal on amiodarone, diltiazem and metoprolol patient is not a candidate for oral anticoagulation s/t severe anemia and recent GI bleed. Unilateral LE edema LE venous doppler reports no evidence of DVT Popliteal cyst Recent GI bleed recent EGD workup revealed gastric ulcer Leukocytosis Chronic Anemia Hypothyroidism Hyponatremia Elevated liver transaminase Chronic lung disease Tobacco abuse Ascending thoracic aorta aneurysm measuring 5cm An echocardiogram 12/2018 reveal moderate aortic valve calcification with moderate to severe aortic stenosis. Left ventricular systolic function is normal, EF 60%. Small fixed apical wall defect, no reversible ischemia on MPI done 01/2018. Recommend: Continue diltiazem, metoprolol and amiodarone for suppression of paroxysmal atrial fibrillation. Subjective Date of service: 02/10/19 Principal diagnosis: Abscess Interval history: Patient has no cardiac complaints. Objective Vital Signs Temp Pulse Pulse Resp BP Pulse Ox 02/10/19 10:04 71 90/60 02/10/19 07:33 70 90 02/10/19 07:32 97.5 F L 71 20 106/50 86 02/10/19 05:40 65 99/45 02/10/19 01:53 65 94 02/10/19 01:47 99.9 F H 64 20 99/45 86 02/09/19 23:43 75 110/55 02/09/19 22:30 75 110/55 02/09/19 22:27 99.4 F 74 20 110/55 89 02/09/19 19:30 75 20 89 02/09/19 17:50 71 122/75 02/09/19 17:49 122/75 02/09/19 16:08 20 02/09/19 15:24 102/48 02/09/19 13:36 98.0 F 67 20 109/56 97 02/09/19 11:55 20 02/09/19 11:54 112 H 107/74 02/09/19 11:53 107/74 - Physical Examination General: No Apparent Distress HEENT: Positive: PERRL Neck: Positive: trachea midline Cardiac: Positive: Reg Rate and Rhythm Lungs: Positive: Decreased Breath Sounds, Rhonchi Neuro: Positive: Grossly Intact, Weakness Extremities: Present: edema (unilateral) - Labs and Meds CBC 02/10/19 Range/Units 09:11 WBC 13.6 H (4.5-11.0) K/mm3 RBC 2.93 L (3.65-5.03) M/mm3 Hgb 8.8 L (11.8-15.2) gm/dl Hct 27.4 L (35.5-45.6) % Plt Count 384 (140-440) K/mm3 Lymph # 1.3 (1.2-5.4) K/mm3 [place] # 1.2 H (0.0-0.8) K/mm3 Eos # 0.0 (0.0-0.4) K/mm3 Baso # 0.1 (0.0-0.1) K/mm3
--- NOTE | 2019-02-10 11:28 | Progress Note ---
Assessment and Plan Assessment and plan: Patient is a 78 yo man with a history of Afib, hypertension, asthma, hypothyroid and recent GIB with Gastric ulcer s/p endoclip repair who presented to [facility] ED on 01/27/19 with left leg pains and palpitations. * EGD #1 on 01/10/19 Pre-op diagnosis: Melena, Post-op diagnosis: other (Gastric Ulcer) Findings: 1. Normal duodenum (some dried blood) 2. 1cm flat ulcer on greater curve/body, with a moderate visible vessel present - Endoclip x 1 - Cold bx of antrum to r/o H pylori 3. Clots/fluid in fundus that could not be suctioned, but no fresh blood 4. No esophageal varices * EGD #2 on 01/13/19 Pre-op diagnosis: Anemia Post-op diagnosis: other (Gastric Ulcers) Findings: 1. No blood/clots present 2. Duodenum normal 3. Gastric ulcer with clip in body without stigmata of bleeding 4. Two small antral erosions not seen previously with pigment base 5. O/W normal stomach and esophagus -Atrial fibrillation with RVR: Cardiology following, treated with iv Amiodarone to Po, not back on Amiodarone IV drip on February 01 and switch back to oral Amiodarone -Hypotension: monitor closely, cardiology following -Left leg pain with ruptured Ceballos cyst s/p incisional drainage 02/09/19: d/w Dr. Michaels, who wants to take to OR for excisional debridement but patient wants him to speak with first -PAD with 75% DIMPLE: d/w Dr. 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 Follow-up on current diagnosis of afib with rvr and left leg pains, neck pains better. Overnight uneventful. Patient denies any chest pain, shortness breath, nausea/vomiting or severe headaches. Imaging, nursing note, chart, labs and old chart reviewed. Discussed with patient. Hospitalist Physical - Physical exam Narrative exam: Gen: thin frail, chronic disable with severe deconditioning, NAD, Awake, Orientated HEENT: NCAT, EOMI, PERRL, OP Clear Neck: neck OA, no adenopathy, no thyromegaly, no JVD CVS/Heart: RRR, normal S1S2, pulses present bilaterally Chest/Lungs: CTA B, Symmetrical chest expansion, good air entry bilaterally GI/Abdomen: soft, NTND, good bowel sounds, no guarding or rebound /Bladder: no suprapubic tenderness, no CVA or paraspinal tenderness Extermity/Skin: left leg with surgical dsg intact MSK: FROM x 4 Neuro: CN 2-12 grossly intact, no new focal deficits Psych: calm - Constitutional Vitals: Temp Pulse Resp BP Pulse Ox 97.5 F L 71 20 90/60 90 02/10/19 07:32 02/10/19 10:04 02/10/19 07:32 02/10/19 10:04 02/10/19 07:33 General appearance: Present: no acute distress Results - Labs CBC & Chem 7: 02/10/19 09:11 02/08/19 13:01 Labs: Laboratory Last Values WBC 13.6 K/mm3 (4.5-11.0) H 02/10/19 09:11 RBC 2.93 M/mm3 (3.65-5.03) L 02/10/19 09:11 Hgb 8.8 gm/dl (11.8-15.2) L 02/10/19 09:11 Hct 27.4 % (35.5-45.6) L 02/10/19 09:11 MCV 93 fl (84-94) 02/10/19 09:11 MCH 30 pg (28-32) 02/10/19 09:11 MCHC 32 % (32-34) 02/10/19 09:11 RDW 20.0 % (13.2-15.2) H 02/10/19 09:11 Plt Count 384 K/mm3 (140-440) 02/10/19 09:11 Lymph % (Auto) 9.7 % (13.4-35.0) L 02/10/19 09:11 Imperial % (Auto) 9.1 % (0.0-7.3) H 02/10/19 09:11 Eos % (Auto) 0.3 % (0.0-4.3) 02/10/19 09:11 Baso % (Auto) 1.0 % (0.0-1.8) 02/10/19 09:11 Lymph # 1.3 K/mm3 (1.2-5.4) 02/10/19 09:11 Imperial # 1.2 K/mm3 (0.0-0.8) H 02/10/19 09:11 Eos # 0.0 K/mm3 (0.0-0.4) 02/10/19 09:11 Baso # 0.1 K/mm3 (0.0-0.1) 02/10/19 09:11 Add Manual Diff Complete 01/27/19 10:23 Total Counted 100 01/27/19 10:23 Seg Neutrophils % 79.9 % (40.0-70.0) H 02/10/19 09:11 Seg Neuts % (Manual) 90.0 % (40.0-70.0) H 01/27/19 10:23 Band Neutrophils % 0 % 01/27/19 10:23 Lymphocytes % (Manual) 7.0 % (13.4-35.0) L 01/27/19 10:23 Reactive Lymphs % (Man) 0 % 01/27/19 10:23 Monocytes % (Manual) 3.0 % (0.0-7.3) 01/27/19 10:23 Eosinophils % (Manual) 0 % (0.0-4.3) 01/27/19 10:23 Metamyelocytes % 0 % 01/27/19 10:23 Myelocytes % 0 % 01/27/19 10:23 Promyelocytes % 0 % 01/27/19 10:23 Blast Cells % 0 % 01/27/19 10:23 Nucleated RBC % Not Reportable 01/27/19 10:23 Seg Neutrophils # 10.9 K/mm3 (1.8-7.7) H 02/10/19 09:11 Seg Neutrophils # Man 10.7 K/mm3 (1.8-7.7) H 01/27/19 10:23 Band Neutrophils # 0.0 K/mm3 01/27/19 10:23 Lymphocytes # (Manual) 0.8 K/mm3 (1.2-5.4) L 01/27/19 10:23 Abs React Lymphs (Man) 0.0 K/mm3 01/27/19 10:23 Monocytes # (Manual) 0.4 K/mm3 (0.0-0.8) 01/27/19 10:23 Eosinophils # (Manual) 0.0 K/mm3 (0.0-0.4) 01/27/19 10:23 Basophils # (Manual) 0.0 K/mm3 (0.0-0.1) 01/27/19 10:23 Metamyelocytes # 0.0 K/mm3 01/27/19 10:23 Myelocytes # 0.0 K/mm3 01/27/19 10:23 Promyelocytes # 0.0 K/mm3 01/27/19 10:23 Blast Cells # 0.0 K/mm3 01/27/19 10:23 WBC Morphology Not Reportable 01/27/19 10:23 Hypersegmented Neuts Not Reportable 01/27/19 10:23 Hyposegmented Neuts Not Reportable 01/27/19 10:23 Hypogranular Neuts Not Reportable 01/27/19 10:23 Smudge Cells Not Reportable 01/27/19 10:23 Toxic Granulation Not Reportable 01/27/19 10:23 Toxic Vacuolation Not Reportable 01/27/19 10:23 Dohle Bodies Not Reportable 01/27/19 10:23 Pelger-Huet Anomaly Not Reportable 01/27/19 10:23 Eugenio Rods Not Reportable 01/27/19 10:23 Platelet Estimate Consistent w auto 01/27/19 10:23 Clumped Platelets Not Reportable 01/27/19 10:23 Plt Clumps, EDTA Not Reportable 01/27/19 10:23 Large Platelets Not Reportable 01/27/19 10:23 Giant Platelets Rare 01/27/19 10:23 Platelet Satelliting Not Reportable 01/27/19 10:23 Plt Morphology Comment Not Reportable 01/27/19 10:23 RBC Morphology Not Reportable 01/27/19 10:23 Dimorphic RBCs Not Reportable 01/27/19 10:23 Polychromasia Not Reportable 01/27/19 10:23 Hypochromasia Not Reportable 01/27/19 10:23 Poikilocytosis Few 01/27/19 10:23 Anisocytosis Few 01/27/19 10:23 Microcytosis Not Reportable 01/27/19 10:23 Macrocytosis Not Reportable 01/27/19 10:23 Spherocytes Not Reportable 01/27/19 10:23 Pappenheimer Bodies Not Reportable 01/27/19 10:23 Sickle Cells Not Reportable 01/27/19 10:23 Target Cells Not Reportable 01/27/19 10:23 Tear Drop Cells Not Reportable 01/27/19 10:23 Ovalocytes Not Reportable 01/27/19 10:23 Helmet Cells Not Reportable 01/27/19 10:23 [place] Bodies Not Reportable 01/27/19 10:23 Harrison Rings Not Reportable 01/27/19 10:23 Jame Cells Not Reportable 01/27/19 10:23 Bite Cells Not Reportable 01/27/19 10:23 Crenated Cell Not Reportable 01/27/19 10:23 Elliptocytes Rare 01/27/19 10:23 Acanthocytes (Spur) Not Reportable 01/27/19 10:23 Rouleaux Not Reportable 01/27/19 10:23 Hemoglobin C Crystals Not Reportable 01/27/19 10:23 Schistocytes Not Reportable 01/27/19 10:23 Malaria parasites Not Reportable 01/27/19 10:23 Derick Bodies Not Reportable 01/27/19 10:23 Hem Pathologist Commnt No 01/27/19 10:23 Sodium 135 mmol/L (137-145) L 02/08/19 13:01 Potassium 4.6 mmol/L (3.6-5.0) 02/08/19 13:01 Chloride 90.5 mmol/L (98-107) L 02/08/19 13:01 Carbon Dioxide 39 mmol/L (22-30) H 02/08/19 13:01 Anion Gap 10 mmol/L 02/08/19 13:01 BUN 10 mg/dL (9-20) 02/08/19 13:01 Creatinine 0.3 mg/dL (0.8-1.5) L 02/08/19 13:01 Estimated GFR > 60 ml/min 02/08/19 13:01 BUN/Creatinine Ratio 33 % 02/08/19 13:01 Glucose 136 mg/dL (75-100) H 02/08/19 13:01 Calcium 8.1 mg/dL (8.4-10.2) L 02/08/19 13:01 Magnesium 1.80 mg/dL (1.7-2.3) 01/29/19 05:13 Iron 7 ug/dL (49-181) L 01/28/19 07:06 TIBC 92 mcg/dL (250-450) L 01/28/19 07:06 % Saturation 7.61 % 01/28/19 07:06 Transferrin 89 mg/dl (180-329) L 01/28/19 07:06 Total Bilirubin 0.40 mg/dL (0.1-1.2) 01/27/19 10:19 AST 23 units/L (5-40) 01/27/19 10:19 ALT 20 units/L (7-56) 01/27/19 10:19 Alkaline Phosphatase 111 units/L (35-129) 01/27/19 10:19 Troponin T < 0.010 ng/mL (0.00-0.029) 01/27/19 10:19 Total Protein 5.9 g/dL (6.3-8.2) L 01/27/19 10:19 Albumin 1.9 g/dL (3.9-5) L 01/27/19 10:19 Albumin/Globulin Ratio 0.5 % 01/27/19 10:19 Vitamin B12 1887 pg/mL (211-911) H 01/28/19 07:06 RBC Folic Acid >1000 ng/mL (>280) 01/28/19 07:06 TSH 8.080 mlU/mL (0.270-4.200) H 01/28/19 07:06 Free T4 0.76 ng/dL (0.76-1.46) 02/03/19 13:46 Thyroxine (T4) 4.3 ug/dL (4.0-12.0) 02/03/19 13:46 Active Medications - Current Medications Current Medications: Generic Name Dose Route Start Last Admin Trade Name Freq PRN Reason Stop Dose Admin Amiodarone HCl 200 mg 02/05/19 14:00 02/10/19 10:04 Cordarone PO 200 mg QDAY JONI Administration Aspirin 81 mg 01/28/19 10:00 02/10/19 10:03 Halfprin Ec PO 81 mg QDAY JONI Administration Cyclobenzaprine HCl 10 mg 01/30/19 08:30 02/10/19 02:59 Flexeril PO 10 mg Q8H PRN Administration Muscle Spasm Diltiazem HCl 30 mg 02/05/19 14:00 02/10/19 05:40 Cardizem PO Not Given Q6HR JONI Ferrous Sulfate 325 mg 01/28/19 10:00 02/10/19 10:03 Feosol PO 325 mg DAILY JONI Administration Hydromorphone HCl 0.5 mg 02/07/19 12:37 02/07/19 16:12 Dilaudid IV 0.5 mg DAILY PRN Administration Wound Care Levothyroxine Sodium 112 mcg 01/28/19 06:00 02/10/19 05:40 Synthroid PO 112 mcg DAILY@0600 JONI Administration Metoprolol Tartrate 2.5 mg 01/29/19 12:51 Lopressor IV Q6HR PRN HR>130 Metoprolol Tartrate 25 mg 02/05/19 14:00 02/10/19 10:04 Lopressor PO Not Given BID JONI Nicotine 21 mg 01/29/19 00:23 02/09/19 23:43 Habitrol TD 21 mg Q24H JONI Administration Pantoprazole Sodium 40 mg 01/28/19 10:00 02/10/19 10:41 Protonix PO 40 mg QDAY JONI Administration Tramadol HCl 50 mg 02/05/19 15:44 02/10/19 10:03 Ultram PO 50 mg Q6H PRN Administration Pain, Moderate (4-6) Nutrition/Malnutrition Assess - Dietary Evaluation Nutrition/Malnutrition Findings: Nutrition Notes Start: 01/28/19 15:47 Freq: Status: Active Protocol: Document 02/10/19 10:28 CP (Rec: 02/10/19 10:32 CP [email or web address]) Co-Sign 02/10/19 10:28 LP Nutrition Notes Initial or Follow up Brief Note Subjective/Other Information Pt is eating 100% of his meals and has good appetite. Nutrition Intervention Revisit per MD consult or patient Sign Off request:
--- NOTE | 2019-02-10 12:18 | Progress Note ---
Assessment and Plan - Patient Problems (1) Rupture of popliteal cyst Current Visit: Yes Status: Acute Plan to address problem: Pt stable. s/p I&D of left calf fluid collection. Pt is in agreement to proceed with OR debridement. He would like me to reach out to his before he gives consent. Will try to call her. Time=10min Subjective Date of service: 02/10/19 Patient Reports: Positive: no new complaints, feels better, pain is less Objective Vital Signs - 12hr 02/10/19 02/10/19 02/10/19 01:47 01:53 05:40 Temperature 99.9 F H Pulse Rate 64 65 65 Respiratory 20 Rate Blood Pressure 99/45 99/45 O2 Sat by Pulse 86 94 Oximetry 02/10/19 02/10/19 02/10/19 07:32 07:33 10:04 Temperature 97.5 F L Pulse Rate 71 70 71 Respiratory 20 Rate Blood Pressure 106/50 90/60 O2 Sat by Pulse 86 90 Oximetry - General physical appearance no distress, no pain - Respiratory normal expansion, normal respiratory effort - Musculoskeletal other (leg dressing dry. ) - Psychiatric oriented to time, oriented to person, oriented to place, speech is normal, memory intact - Labs 02/10/19 09:11 02/08/19 13:01
[2019-02-10] MEDS: DILAUDID IV PRN (20:40)
[2019-02-11] MEDS: CARDIZEM PO SCH ×4 (00:25→17:54)
[2019-02-11] MEDS: HABITROL TD SCH (00:28)
[2019-02-11 01:19] LABS: Basophils # (Auto) 0.1 K/mm3 (0.0-0.1); Basophils % (Auto) 1.1 % (0.0-1.8); Eosinophils # (Auto) 0.1 K/mm3 (0.0-0.4); Eosinophils % (Auto) 0.5 % (0.0-4.3); Hematocrit 26.7 % (35.5-45.6); Hemoglobin 8.6 gm/dl (11.8-15.2); Lymphocytes # (Auto) 1.3 K/mm3 (1.2-5.4); Mean Corpuscular HGB Conc 32 % (32-34); Mean Corpuscular Volume 94 fl (84-94); Monocytes # (Auto) 1.5 K/mm3 (0.0-0.8); Monocytes % (Auto) 10.5 % (0.0-7.3); Platelet Count 372 K/mm3 (140-440); Red Blood Count 2.85 M/mm3 (3.65-5.03); Red Cell Distribution Width 19.9 % (13.2-15.2)
[2019-02-11] MEDS: SYNTHROID PO SCH (06:29)
[2019-02-11] MEDS: ULTRAM PO PRN ×3 (08:37→22:14)
--- NOTE | 2019-02-11 08:43 | Progress Note ---
Assessment and Plan Cultures: 01/28/2019 MRSA nasal culture: Negative 01/30/2019 blood culture: No growth 02/06/2019 left leg fluid culture: No growth wound culture no growth A/P: 78-year-old male with history of bilateral knee replacement surgeries, left hip replacement 5, tobacco abuse, COPD admitted with: 1) Bilateral popliteal/Ceballos's cyst with left calf fluid collection: Status post I&D on 02/06/2019. Wound cultures no growth. No fevers, no growth on cultures with no prior antibiotic exposure. Leukocytosis likely reactive, continuing. 2) Peripheral vascular disease: Left lower extremity. 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 Negative for DVT. s/p I & D washout in the OR today with wound vac placement- Dr. Michaels following. 3) Tobacco abuse 4) A.fib: cardiology following. No anticoagulation due to anemia and h/o GI bleed. Recs: Continue to monitor off antibiotics Clinically stable, ID is signing off [facility] M: [id number] O:[phone] Subjective Date of service: 02/11/19 Principal diagnosis: Abscess Interval history: Patient seen and examined. left leg pain decreased from yesterday. +wound vac. No fevers. at bedside. Objective - Exam Narrative Exam: General appearance: Alert in NAD, conversant. No acute distress Eyes: anicteric sclerae, moist conjunctivae; no lid-lag; PERRLA HENT: Atraumatic; oropharynx clear. Neck: Trachea midline; supple, no thyromegaly or lymphadenopathy Lungs: CTA CV: RRR, no murmurs Abdomen: Soft, non-tender; no masses or hepatosplenomegaly Extremities: s/p left calf I & D and washout + wound vac. + edema. 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 Neuro: alert and oriented x 3. Moving all extermities - Constitutional Vitals: Vital Signs Temp Pulse Resp BP Pulse Ox 98.8 F 82 18 101/54 97 02/11/19 08:12 02/11/19 08:12 02/11/19 08:12 02/11/19 08:12 02/11/19 08:12 Temperature -Last 24 Hours Temperature 98.8 F Temperature 97.8 F Temperature 98.6 F Temperature 98.1 F - Labs CBC & Chem 7: 02/11/19 00:56 02/08/19 13:01 Labs: Abnormal lab results 02/10/19 02/11/19 Range/Units 09:11 00:56 WBC 13.6 H 13.9 H (4.5-11.0) K/mm3 RBC 2.93 L 2.85 L (3.65-5.03) M/mm3 Hgb 8.8 L 8.6 L (11.8-15.2) gm/dl Hct 27.4 L 26.7 L (35.5-45.6) % RDW 20.0 H 19.9 H (13.2-15.2) % Lymph % (Auto) 9.7 L 9.0 L (13.4-35.0) % Divide % (Auto) 9.1 H 10.5 H (0.0-7.3) % Divide # 1.2 H 1.5 H (0.0-0.8) K/mm3 Seg Neutrophils % 79.9 H 78.9 H (40.0-70.0) % Seg Neutrophils # 10.9 H 11.0 H (1.8-7.7) K/mm3
--- NOTE | 2019-02-11 08:49 | Progress Note ---
Assessment and Plan Generalized pain -chief complaint Atrial fibrillation, paroxysmal on amiodarone, diltiazem and metoprolol patient is not a candidate for oral anticoagulation s/t severe anemia and recent GI bleed. Unilateral LE edema LE venous doppler reports no evidence of DVT Popliteal cyst Recent GI bleed recent EGD workup revealed gastric ulcer Leukocytosis Chronic Anemia Hypothyroidism Hyponatremia Elevated liver transaminase Chronic lung disease Tobacco abuse Ascending thoracic aorta aneurysm measuring 5cm An echocardiogram 12/2018 reveal moderate aortic valve calcification with moderate to severe aortic stenosis. Left ventricular systolic function is normal, EF 60%. Small fixed apical wall defect, no reversible ischemia on MPI done 01/2018. Recommend: Continue diltiazem, metoprolol and amiodarone for suppression of paroxysmal atrial fibrillation. Subjective Date of service: 02/11/19 Principal diagnosis: Abscess Interval history: Patient has no cardiac complaints. For planned debridement today. Objective Vital Signs Temp Pulse Pulse Resp BP BP Pulse Ox 02/11/19 08:12 98.8 F 82 18 101/54 97 02/11/19 06:28 76 120/62 02/11/19 02:18 74 91 02/11/19 02:17 97.8 F 20 126/64 02/10/19 22:44 84 112/56 02/10/19 22:00 78 18 94 02/10/19 21:10 16 02/10/19 20:40 18 02/10/19 20:02 86 97 02/10/19 20:00 98.6 F 20 111/55 02/10/19 18:34 70 120/60 02/10/19 13:08 98.1 F 74 20 107/50 95 02/10/19 12:00 74 107/50 02/10/19 10:04 71 90/60 02/10/19 10:00 71 20 90 - Physical Examination General: No Apparent Distress HEENT: Positive: PERRL Neck: Positive: trachea midline Cardiac: Positive: Reg Rate and Rhythm (review) Lungs: Positive: Decreased Breath Sounds, Rhonchi Neuro: Positive: Grossly Intact, Weakness - Labs and Meds CBC 02/10/19 02/11/19 Range/Units 09:11 00:56 WBC 13.6 H 13.9 H (4.5-11.0) K/mm3 RBC 2.93 L 2.85 L (3.65-5.03) M/mm3 Hgb 8.8 L 8.6 L (11.8-15.2) gm/dl Hct 27.4 L 26.7 L (35.5-45.6) % Plt Count 384 372 (140-440) K/mm3 Lymph # 1.3 1.3 (1.2-5.4) K/mm3 [place] # 1.2 H 1.5 H (0.0-0.8) K/mm3 Eos # 0.0 0.1 (0.0-0.4) K/mm3 Baso # 0.1 0.1 (0.0-0.1) K/mm3
[2019-02-11] MEDS ORDERED: SUBLIMAZE ONE (09:44)
[2019-02-11] MEDS ORDERED: DIPRIVAN 10 MG/ML IV ONE (09:44)
[2019-02-11] MEDS: FEOSOL PO SCH ×2 (09:51→13:35)
[2019-02-11] MEDS: HALFPRIN EC PO SCH ×2 (09:51→13:35)
[2019-02-11] MEDS: CORDARONE PO SCH (09:51)
[2019-02-11] MEDS: PROTONIX PO SCH ×2 (09:51→13:26)
[2019-02-11] MEDS: LOPRESSOR PO SCH ×2 (09:51→22:17)
[2019-02-11] MEDS ORDERED: PROAIR IH ONE (10:11)
[2019-02-11] MEDS ORDERED: KETALAR ONE (10:11)
[2019-02-11] MEDS ORDERED: NACL 0.9% IR ONE ×2 (10:12)
--- NOTE | 2019-02-11 10:59 | Post Operative Note ---
Date of procedure: 02/11/19 (Dictation:[id number]) Pre-op diagnosis: left leg cyst rupture Post-op diagnosis: same Findings: large cavity. No further greyish drainage seen. inflamed tissue. Procedure: I&D washout wound vac placement Anesthesia: MAC Surgeon: MARTIN LOPEZ Estimated blood loss: 50-100ml Pathology: none Condition: stable Disposition: PACU
[2019-02-11] MEDS ORDERED: NACL 0.9% 1000 ML 1,000 ML ONE (11:50)
--- NOTE | 2019-02-11 16:03 | Progress Note ---
Assessment and Plan Assessment and plan: Patient is a 78 yo man with a history of Afib, hypertension, asthma, hypothyroid and recent GIB with Gastric ulcer s/p endoclip repair who presented to [facility] on 01/27/19 with left leg pains and palpitations. * EGD #1 on 01/10/19 Pre-op diagnosis: Melena, Post-op diagnosis: other (Gastric Ulcer) Findings: 1. Normal duodenum (some dried blood) 2. 1cm flat ulcer on greater curve/body, with a moderate visible vessel present - Endoclip x 1 - Cold bx of antrum to r/o H pylori 3. Clots/fluid in fundus that could not be suctioned, but no fresh blood 4. No esophageal varices * EGD #2 on 01/13/19 Pre-op diagnosis: Anemia Post-op diagnosis: other (Gastric Ulcers) Findings: 1. No blood/clots present 2. Duodenum normal 3. Gastric ulcer with clip in body without stigmata of bleeding 4. Two small antral erosions not seen previously with pigment base 5. 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 Rolon, unlikely source of leg pains -HTN (hypertension) low salt diet -Neck pains, xray showing possible spasms: added flexeril prn -Hyperkalemia, mild: monitor closely -Hypothyroidism, uncontrolled: adjust synthroid -GERD (gastroesophageal reflux disease) On PPI's -Anemia, acute on chronic GI bleed recently, no termite treater a/c -DVT prophylaxis: Off Lovenox and GI prophylaxis -Severe malnutrition, poa: [employer] full code Recheck TSH, still pending Disposition: Continue inpatient care, d/c to SNF once Insurance pre- authorization done \ History Interval history: Patient was seen and examined. Follow-up on current diagnosis of afib with rvr and left leg pains, neck pains better. Overnight uneventful. Patient denies any chest pain, shortness breath, nausea/vomiting or severe headaches. Imaging, nursing note, chart, labs and old chart reviewed. Discussed with patient. Hospitalist Physical - Physical exam Narrative exam: Gen: thin frail, chronic disable with severe deconditioning, NAD, Awake, Orientated HEENT: NCAT, EOMI, PERRL, OP Clear Neck: neck OA, no adenopathy, no thyromegaly, no JVD CVS/Heart: RRR, normal S1S2, pulses present bilaterally Chest/Lungs: CTA B, Symmetrical chest expansion, good air entry bilaterally GI/Abdomen: soft, NTND, good bowel sounds, no guarding or rebound /Bladder: no suprapubic tenderness, no CVA or paraspinal tenderness Extermity/Skin: left leg with surgical dsg intact MSK: FROM x 4 Neuro: CN 2-12 grossly intact, no new focal deficits Psych: calm - Constitutional Vitals: Temp Pulse Resp BP Pulse Ox 98.4 F 83 18 88/47 92 02/11/19 13:41 02/11/19 13:41 02/11/19 13:41 02/11/19 13:41 02/11/19 13:41 General appearance: Present: no acute distress Results - Labs CBC & Chem 7: 02/11/19 00:56 02/08/19 13:01 Labs: Laboratory Last Values WBC 13.9 K/mm3 (4.5-11.0) H 02/11/19 00:56 RBC 2.85 M/mm3 (3.65-5.03) L 02/11/19 00:56 Hgb 8.6 gm/dl (11.8-15.2) L 02/11/19 00:56 Hct 26.7 % (35.5-45.6) L 02/11/19 00:56 MCV 94 fl (84-94) 02/11/19 00:56 MCH 30 pg (28-32) 02/11/19 00:56 MCHC 32 % (32-34) 02/11/19 00:56 RDW 19.9 % (13.2-15.2) H 02/11/19 00:56 Plt Count 372 K/mm3 (140-440) 02/11/19 00:56 Lymph % (Auto) 9.0 % (13.4-35.0) L 02/11/19 00:56 [place] % (Auto) 10.5 % (0.0-7.3) H 02/11/19 00:56 Eos % (Auto) 0.5 % (0.0-4.3) 02/11/19 00:56 Baso % (Auto) 1.1 % (0.0-1.8) 02/11/19 00:56 Lymph # 1.3 K/mm3 (1.2-5.4) 02/11/19 00:56 [place] # 1.5 K/mm3 (0.0-0.8) H 02/11/19 00:56 Eos # 0.1 K/mm3 (0.0-0.4) 02/11/19 00:56 Baso # 0.1 K/mm3 (0.0-0.1) 02/11/19 00:56 Add Manual Diff Complete 01/27/19 10:23 Total Counted 100 01/27/19 10:23 Seg Neutrophils % 78.9 % (40.0-70.0) H 02/11/19 00:56 Seg Neuts % (Manual) 90.0 % (40.0-70.0) H 01/27/19 10:23 Band Neutrophils % 0 % 01/27/19 10:23 Lymphocytes % (Manual) 7.0 % (13.4-35.0) L 01/27/19 10:23 Reactive Lymphs % (Man) 0 % 01/27/19 10:23 Monocytes % (Manual) 3.0 % (0.0-7.3) 01/27/19 10:23 Eosinophils % (Manual) 0 % (0.0-4.3) 01/27/19 10:23 Metamyelocytes % 0 % 01/27/19 10:23 Myelocytes % 0 % 01/27/19 10:23 Promyelocytes % 0 % 01/27/19 10:23 Blast Cells % 0 % 01/27/19 10:23 Nucleated RBC % Not Reportable 01/27/19 10:23 Seg Neutrophils # 11.0 K/mm3 (1.8-7.7) H 02/11/19 00:56 Seg Neutrophils # Man 10.7 K/mm3 (1.8-7.7) H 01/27/19 10:23 Band Neutrophils # 0.0 K/mm3 01/27/19 10:23 Lymphocytes # (Manual) 0.8 K/mm3 (1.2-5.4) L 01/27/19 10:23 Abs React Lymphs (Man) 0.0 K/mm3 01/27/19 10:23 Monocytes # (Manual) 0.4 K/mm3 (0.0-0.8) 01/27/19 10:23 Eosinophils # (Manual) 0.0 K/mm3 (0.0-0.4) 01/27/19 10:23 Basophils # (Manual) 0.0 K/mm3 (0.0-0.1) 01/27/19 10:23 Metamyelocytes # 0.0 K/mm3 01/27/19 10:23 Myelocytes # 0.0 K/mm3 01/27/19 10:23 Promyelocytes # 0.0 K/mm3 01/27/19 10:23 Blast Cells # 0.0 K/mm3 01/27/19 10:23 WBC Morphology Not Reportable 01/27/19 10:23 Hypersegmented Neuts Not Reportable 01/27/19 10:23 Hyposegmented Neuts Not Reportable 01/27/19 10:23 Hypogranular Neuts Not Reportable 01/27/19 10:23 Smudge Cells Not Reportable 01/27/19 10:23 Toxic Granulation Not Reportable 01/27/19 10:23 Toxic Vacuolation Not Reportable 01/27/19 10:23 Dohle Bodies Not Reportable 01/27/19 10:23 Pelger-Huet Anomaly Not Reportable 01/27/19 10:23 Eugenio Rods Not Reportable 01/27/19 10:23 Platelet Estimate Consistent w auto 01/27/19 10:23 Clumped Platelets Not Reportable 01/27/19 10:23 Plt Clumps, EDTA Not Reportable 01/27/19 10:23 Large Platelets Not Reportable 01/27/19 10:23 Giant Platelets Rare 01/27/19 10:23 Platelet Satelliting Not Reportable 01/27/19 10:23 Plt Morphology Comment Not Reportable 01/27/19 10:23 RBC Morphology Not Reportable 01/27/19 10:23 Dimorphic RBCs Not Reportable 01/27/19 10:23 Polychromasia Not Reportable 01/27/19 10:23 Hypochromasia Not Reportable 01/27/19 10:23 Poikilocytosis Few 01/27/19 10:23 Anisocytosis Few 01/27/19 10:23 Microcytosis Not Reportable 01/27/19 10:23 Macrocytosis Not Reportable 01/27/19 10:23 Spherocytes Not Reportable 01/27/19 10:23 Pappenheimer Bodies Not Reportable 01/27/19 10:23 Sickle Cells Not Reportable 01/27/19 10:23 Target Cells Not Reportable 01/27/19 10:23 Tear Drop Cells Not Reportable 01/27/19 10:23 Ovalocytes Not Reportable 01/27/19 10:23 Helmet Cells Not Reportable 01/27/19 10:23 [place] Bodies Not Reportable 01/27/19 10:23 Cecil Rings Not Reportable 01/27/19 10:23 Ravena Cells Not Reportable 01/27/19 10:23 Bite Cells Not Reportable 01/27/19 10:23 Crenated Cell Not Reportable 01/27/19 10:23 Elliptocytes Rare 01/27/19 10:23 Acanthocytes (Spur) Not Reportable 01/27/19 10:23 Rouleaux Not Reportable 01/27/19 10:23 Hemoglobin C Crystals Not Reportable 01/27/19 10:23 Schistocytes Not Reportable 01/27/19 10:23 Malaria parasites Not Reportable 01/27/19 10:23 Derick Bodies Not Reportable 01/27/19 10:23 Hem Pathologist Commnt No 01/27/19 10:23 Sodium 135 mmol/L (137-145) L 02/08/19 13:01 Potassium 4.6 mmol/L (3.6-5.0) 02/08/19 13:01 Chloride 90.5 mmol/L (98-107) L 02/08/19 13:01 Carbon Dioxide 39 mmol/L (22-30) H 02/08/19 13:01 Anion Gap 10 mmol/L 02/08/19 13:01 BUN 10 mg/dL (9-20) 02/08/19 13:01 Creatinine 0.3 mg/dL (0.8-1.5) L 02/08/19 13:01 Estimated GFR > 60 ml/min 02/08/19 13:01 BUN/Creatinine Ratio 33 % 02/08/19 13:01 Glucose 136 mg/dL (75-100) H 02/08/19 13:01 Calcium 8.1 mg/dL (8.4-10.2) L 02/08/19 13:01 Magnesium 1.80 mg/dL (1.7-2.3) 01/29/19 05:13 Iron 7 ug/dL (49-181) L 01/28/19 07:06 TIBC 92 mcg/dL (250-450) L 01/28/19 07:06 % Saturation 7.61 % 01/28/19 07:06 Transferrin 89 mg/dl (180-329) L 01/28/19 07:06 Total Bilirubin 0.40 mg/dL (0.1-1.2) 01/27/19 10:19 AST 23 units/L (5-40) 01/27/19 10:19 ALT 20 units/L (7-56) 01/27/19 10:19 Alkaline Phosphatase 111 units/L (35-129) 01/27/19 10:19 Troponin T < 0.010 ng/mL (0.00-0.029) 01/27/19 10:19 Total Protein 5.9 g/dL (6.3-8.2) L 01/27/19 10:19 Albumin 1.9 g/dL (3.9-5) L 01/27/19 10:19 Albumin/Globulin Ratio 0.5 % 01/27/19 10:19 Vitamin B12 1887 pg/mL (211-911) H 01/28/19 07:06 RBC Folic Acid >1000 ng/mL (>280) 01/28/19 07:06 TSH 8.080 mlU/mL (0.270-4.200) H 01/28/19 07:06 Free T4 0.76 ng/dL (0.76-1.46) 02/03/19 13:46 Thyroxine (T4) 4.3 ug/dL (4.0-12.0) 02/03/19 13:46 Active Medications - Current Medications Current Medications: Generic Name Dose Route Start Last Admin Trade Name Freq PRN Reason Stop Dose Admin Amiodarone HCl 200 mg 02/05/19 14:00 02/11/19 09:51 Cordarone PO Not Given QDAY JONI Aspirin 81 mg 01/28/19 10:00 02/11/19 13:35 Halfprin Ec PO 81 mg QDAY JONI Administration Cyclobenzaprine HCl 10 mg 01/30/19 08:30 02/10/19 19:03 Flexeril PO 10 mg Q8H PRN Administration Muscle Spasm Diltiazem HCl 30 mg 02/05/19 14:00 02/11/19 11:40 Cardizem PO 30 mg Q6HR JONI Administration Ferrous Sulfate 325 mg 01/28/19 10:00 02/11/19 13:35 Feosol PO 325 mg DAILY JONI Administration Hydromorphone HCl 0.5 mg 02/07/19 12:37 02/10/19 20:40 Dilaudid IV 0.5 mg DAILY PRN Administration Wound Care Sodium Chloride 1,000 mls @ 100 mls/hr 02/11/19 14:00 Nacl 0.9% 1000 Ml IV DIRECT [facility] Levothyroxine Sodium 112 mcg 01/28/19 06:00 02/11/19 06:29 Synthroid PO Not Given DAILY@0600 [facility] Metoprolol Tartrate 2.5 mg 01/29/19 12:51 Lopressor IV Q6HR PRN HR>130 Metoprolol Tartrate 25 mg 02/05/19 14:00 02/11/19 09:51 Lopressor PO Not Given BID [facility] Nicotine 21 mg 01/29/19 00:23 02/11/19 00:28 Habitrol TD 21 mg Q24H JONI Administration Pantoprazole Sodium 40 mg 01/28/19 10:00 02/11/19 13:26 Protonix PO 40 mg QDAY [facility] Administration Tramadol HCl 50 mg 02/05/19 15:44 02/11/19 13:26 Ultram PO 50 mg Q6H PRN Administration Pain, Moderate (4-6) Nutrition/Malnutrition Assess - Dietary Evaluation Nutrition/Malnutrition Findings: Nutrition Notes Start: 01/28/19 15:47 Freq: Status: Active Protocol: Document 02/10/19 10:28 CP (Rec: 02/10/19 10:32 CP [email or web address]) Co-Sign 02/10/19 10:28 LP Nutrition Notes Initial or Follow up Brief Note Subjective/Other Information Pt is eating 100% of his meals and has good appetite. Nutrition Intervention Revisit per MD consult or patient Sign Off request:
--- NOTE | 2019-02-11 20:58 | Operative Report ---
PREOPERATIVE DIAGNOSIS: Rupture of left leg cyst. POSTOPERATIVE DIAGNOSIS: Rupture of left leg cyst. PROCEDURE: 1. Incision and drainage of left leg cyst cavity. 2. Washout. 3. Wound VAC placement. ATTENDING PHYSICIAN: Sree Michaels MD. ANESTHESIA: Local MAC. ESTIMATED BLOOD LOSS: Less than 50 mL. FLUIDS: 200 mL. FINDINGS: Large cavity that seemed to extend to the area behind the knee. In total, the length was approximately 30 cm in length. It went down into the superficial muscle bundle of the left calf, discoloration was seen of the calf musculature. No further grayish fluid drainage was seen. The surrounding tissue had multiple points of nonsurgical bleeding. SPECIMENS: None. DRAIN: Wound VAC. COMPLICATIONS: None. DISPOSITION: Stable, transferred to Recovery Room. INDICATIONS: This is a 78-year-old gentleman who presented to the hospital originally for severe left leg pain. He was diagnosed by the medical and orthopedic team as having a symptomatic left popliteal cyst. Eventually, the cyst ruptured and then began draining through the skin. General Surgery was consulted. Initial bedside I and D was performed; however, the patient was assessed to be in need of more formal incision and drainage in the operating room. Procedure, risks, benefits were explained to the patient and family. Risks included but were not limited to infection, bleeding, pain, injury to surrounding structures, possible need for further procedures in the future. The patient understood and consented. OPERATIVE NOTE: The patient was brought to the operating room and placed in supine position. After adequate initial sedation was established, the patient was placed in the left lateral decubitus position. All pressure points were padded. Beanbag was used to hold the position, the patient in place. Thereafter additional sedation with a sterile prep and drape was performed. The patient had a condom Cath in place. No antibiotics were given. Time-out was called. I began by removing the wound packing that had been done by the wound care team. Thereafter, I gently probed the wound. It did extend significantly down towards the ankle and then behind the knee. No further grayish drainage was seen as previously mentioned, likely had seen previously. There was significant grayish discoloration of the surrounding tissue. Initially, I thought perhaps this was necrotic tissue. However, in gentle rubbing of the area, some of the grayish came off and underlying it was pink muscular tissue. In addition, when cautery was applied to various areas of bleeding, the muscle did contract. I thought at this point that probably we are dealing more with staining of the tissue rather than necrosis. I would not expect the muscle fibers to be firing if the tissue was necrotic; therefore out of caution and as the patient was stable, I decided to simply open up the wound lengthwise to expose the majority of the wound and then did a thorough washout. During the opening, the patient did have a few skin bleeders that were controlled with electrocautery. There was one vein on the distal aspect of the leg that required ligation and division. Using a pulse lavage, we washed the area thoroughly with 2 liters of saline. A significant amount of discoloration and then went away. Some of the hemostasis was achieved with electrocautery. Thereafter, after drying the wound, holding some pressure with a lap sponge, I then placed Erika total of 4 grams was used and then we held pressure for 3 minutes. This appeared to give us excellent hemostasis. As a precaution additional Surgicel was placed into the wound. I was concerned that with the wound VAC perhaps that would cause some tissue trauma and then lead to further bleeding as this was something that was easily occurring on his tissue surfaces. Thereafter, wound VAC was placed. The patient tolerated procedure well. There were no complications. The adhesive drapes were placed. We had a good seal. I spoke with the at the end of the case, she was very appreciative. JOB# [id number] MITA/LORRIE LEMONS
[2019-02-11] MEDS: NACL 0.9% 1000 ML 1,000 ML IV SCH (22:18)
[2019-02-12] MEDS: CARDIZEM PO SCH ×5 (00:34→23:42)
[2019-02-12] MEDS: HABITROL TD SCH ×2 (00:37→09:33)
[2019-02-12] MEDS: SYNTHROID PO SCH (05:07)
[2019-02-12 05:24] LABS: Hematocrit 23.9 % (35.5-45.6); Hemoglobin 7.6 gm/dl (11.8-15.2); Mean Corpuscular HGB Conc 32 % (32-34); Mean Corpuscular Volume 94 fl (84-94); Platelet Count 374 K/mm3 (140-440); Red Blood Count 2.55 M/mm3 (3.65-5.03)
[2019-02-12 05:30] LABS: Red Cell Distribution Width 20.3 % (13.2-15.2)
[2019-02-12 05:42] LABS: BUN/Creatinine Ratio 28; Blood Urea Nitrogen 11 mg/dL (9-20); Calcium 7.6 mg/dL (8.4-10.2); Hemolysis Index 1
[2019-02-12] MEDS ORDERED: SYNTHROID PO SCH ×2 (07:53→08:00)
--- NOTE | 2019-02-12 08:01 | Progress Note ---
Assessment and Plan Assessment and plan: Patient is a 78 yo man with a history of Afib, hypertension, asthma, hypothyroid and recent GIB with Gastric ulcer s/p endoclip repair who presented to [facility] ED on 01/27/19 with left leg pains and palpitations. * EGD #1 on 01/10/19 Pre-op diagnosis: Melena, Post-op diagnosis: other (Gastric Ulcer) Findings: 1. Normal duodenum (some dried blood) 2. 1cm flat ulcer on greater curve/body, with a moderate visible vessel present - Endoclip x 1 - Cold bx of antrum to r/o H pylori 3. Clots/fluid in fundus that could not be suctioned, but no fresh blood 4. No esophageal varices * EGD #2 on 01/13/19 Pre-op diagnosis: Anemia Post-op diagnosis: other (Gastric Ulcers) Findings: 1. No blood/clots present 2. Duodenum normal 3. Gastric ulcer with clip in body without stigmata of bleeding 4. Two small antral erosions not seen previously with pigment base 5. 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 Rolon, unlikely source of leg pains -HTN (hypertension) low salt diet -Neck pains, xray showing possible spasms: added flexeril prn -Hyperkalemia, mild: monitor closely -Hypothyroidism, uncontrolled: adjust synthroid -GERD (gastroesophageal reflux disease) On PPI's -Anemia, acute on chronic GI bleed recently, no supervisor canvas products a/c -DVT prophylaxis: Off Lovenox and GI prophylaxis -Severe malnutrition, poa: Industrial Engineer full code Recheck TSH worsened at 19.170, no Percussion Teacher here, called [place] for Endocrinology consultation and spoke with Sue; d/w Percussion Teacher Dr. Peter, get free t4, Amiodarone probably causing this, can increase to 125mcg if free t4 low. Disposition: Continue inpatient care, d/c to SNF once Insurance pre- authorization done History Interval history: Patient was seen and examined. Follow-up on current diagnosis of afib with rvr and left leg pains, neck pains better. Overnight uneventful. Patient denies any chest pain, shortness breath, nausea/vomiting or severe headaches. Imaging, nursing note, chart, labs and old chart reviewed. Discussed with patient. Hospitalist Physical - Physical exam Narrative exam: Gen: thin frail, chronic disable with severe deconditioning, NAD, Awake, Orientated HEENT: NCAT, EOMI, PERRL, OP Clear Neck: neck OA, no adenopathy, no thyromegaly, no JVD CVS/Heart: RRR, normal S1S2, pulses present bilaterally Chest/Lungs: CTA B, Symmetrical chest expansion, good air entry bilaterally GI/Abdomen: soft, NTND, good bowel sounds, no guarding or rebound /Bladder: no suprapubic tenderness, no CVA or paraspinal tenderness Extermity/Skin: left leg with surgical dsg intact MSK: FROM x 4 Neuro: CN 2-12 grossly intact, no new focal deficits Psych: calm - Constitutional Vitals: Temp Pulse Resp BP Pulse Ox 98.2 F 114 H 18 99/56 92 02/12/19 07:35 02/12/19 07:35 02/12/19 07:35 02/12/19 07:35 02/12/19 07:35 General appearance: Present: no acute distress Results - Labs CBC & Chem 7: 02/12/19 04:33 02/12/19 04:33 Labs: Laboratory Last Values WBC 14.6 K/mm3 (4.5-11.0) H 02/12/19 04:33 RBC 2.55 M/mm3 (3.65-5.03) L 02/12/19 04:33 Hgb 7.6 gm/dl (11.8-15.2) L 02/12/19 04:33 Hct 23.9 % (35.5-45.6) L 02/12/19 04:33 MCV 94 fl (84-94) 02/12/19 04:33 MCH 30 pg (28-32) 02/12/19 04:33 MCHC 32 % (32-34) 02/12/19 04:33 RDW 20.3 % (13.2-15.2) H 02/12/19 04:33 Plt Count 374 K/mm3 (140-440) 02/12/19 04:33 Lymph % (Auto) 9.0 % (13.4-35.0) L 02/11/19 00:56 [place] % (Auto) 10.5 % (0.0-7.3) H 02/11/19 00:56 Eos % (Auto) 0.5 % (0.0-4.3) 02/11/19 00:56 Baso % (Auto) 1.1 % (0.0-1.8) 02/11/19 00:56 Lymph # 1.3 K/mm3 (1.2-5.4) 02/11/19 00:56 [place] # 1.5 K/mm3 (0.0-0.8) H 02/11/19 00:56 Eos # 0.1 K/mm3 (0.0-0.4) 02/11/19 00:56 Baso # 0.1 K/mm3 (0.0-0.1) 02/11/19 00:56 Add Manual Diff Complete 01/27/19 10:23 Total Counted 100 01/27/19 10:23 Seg Neutrophils % 78.9 % (40.0-70.0) H 02/11/19 00:56 Seg Neuts % (Manual) 90.0 % (40.0-70.0) H 01/27/19 10:23 Band Neutrophils % 0 % 01/27/19 10:23 Lymphocytes % (Manual) 7.0 % (13.4-35.0) L 01/27/19 10:23 Reactive Lymphs % (Man) 0 % 01/27/19 10:23 Monocytes % (Manual) 3.0 % (0.0-7.3) 01/27/19 10:23 Eosinophils % (Manual) 0 % (0.0-4.3) 01/27/19 10:23 Metamyelocytes % 0 % 01/27/19 10:23 Myelocytes % 0 % 01/27/19 10:23 Promyelocytes % 0 % 01/27/19 10:23 Blast Cells % 0 % 01/27/19 10:23 Nucleated RBC % Not Reportable 01/27/19 10:23 Seg Neutrophils # 11.0 K/mm3 (1.8-7.7) H 02/11/19 00:56 Seg Neutrophils # Man 10.7 K/mm3 (1.8-7.7) H 01/27/19 10:23 Band Neutrophils # 0.0 K/mm3 01/27/19 10:23 Lymphocytes # (Manual) 0.8 K/mm3 (1.2-5.4) L 01/27/19 10:23 Abs React Lymphs (Man) 0.0 K/mm3 01/27/19 10:23 Monocytes # (Manual) 0.4 K/mm3 (0.0-0.8) 01/27/19 10:23 Eosinophils # (Manual) 0.0 K/mm3 (0.0-0.4) 01/27/19 10:23 Basophils # (Manual) 0.0 K/mm3 (0.0-0.1) 01/27/19 10:23 Metamyelocytes # 0.0 K/mm3 01/27/19 10:23 Myelocytes # 0.0 K/mm3 01/27/19 10:23 Promyelocytes # 0.0 K/mm3 01/27/19 10:23 Blast Cells # 0.0 K/mm3 01/27/19 10:23 WBC Morphology Not Reportable 01/27/19 10:23 Hypersegmented Neuts Not Reportable 01/27/19 10:23 Hyposegmented Neuts Not Reportable 01/27/19 10:23 Hypogranular Neuts Not Reportable 01/27/19 10:23 Smudge Cells Not Reportable 01/27/19 10:23 Toxic Granulation Not Reportable 01/27/19 10:23 Toxic Vacuolation Not Reportable 01/27/19 10:23 Dohle Bodies Not Reportable 01/27/19 10:23 Pelger-Huet Anomaly Not Reportable 01/27/19 10:23 Eugenio Rods Not Reportable 01/27/19 10:23 Platelet Estimate Consistent w auto 01/27/19 10:23 Clumped Platelets Not Reportable 01/27/19 10:23 Plt Clumps, EDTA Not Reportable 01/27/19 10:23 Large Platelets Not Reportable 01/27/19 10:23 Giant Platelets Rare 01/27/19 10:23 Platelet Satelliting Not Reportable 01/27/19 10:23 Plt Morphology Comment Not Reportable 01/27/19 10:23 RBC Morphology Not Reportable 01/27/19 10:23 Dimorphic RBCs Not Reportable 01/27/19 10:23 Polychromasia Not Reportable 01/27/19 10:23 Hypochromasia Not Reportable 01/27/19 10:23 Poikilocytosis Few 01/27/19 10:23 Anisocytosis Few 01/27/19 10:23 Microcytosis Not Reportable 01/27/19 10:23 Macrocytosis Not Reportable 01/27/19 10:23 Spherocytes Not Reportable 01/27/19 10:23 Pappenheimer Bodies Not Reportable 01/27/19 10:23 Sickle Cells Not Reportable 01/27/19 10:23 Target Cells Not Reportable 01/27/19 10:23 Tear Drop Cells Not Reportable 01/27/19 10:23 Ovalocytes Not Reportable 01/27/19 10:23 Helmet Cells Not Reportable 01/27/19 10:23 [place] Bodies Not Reportable 01/27/19 10:23 [place] Rings Not Reportable 01/27/19 10:23 [place] Cells Not Reportable 01/27/19 10:23 Bite Cells Not Reportable 01/27/19 10:23 Crenated Cell Not Reportable 01/27/19 10:23 Elliptocytes Rare 01/27/19 10:23 Acanthocytes (Spur) Not Reportable 01/27/19 10:23 Rouleaux Not Reportable 01/27/19 10:23 Hemoglobin C Crystals Not Reportable 01/27/19 10:23 Schistocytes Not Reportable 01/27/19 10:23 Malaria parasites Not Reportable 01/27/19 10:23 [place]ick Bodies Not Reportable 01/27/19 10:23 Hem Pathologist Commnt No 01/27/19 10:23 Sodium 134 mmol/L (137-145) L 02/12/19 04:33 Potassium 4.3 mmol/L (3.6-5.0) 02/12/19 04:33 Chloride 96.0 mmol/L (98-107) L 02/12/19 04:33 Carbon Dioxide 30 mmol/L (22-30) D 02/12/19 04:33 Anion Gap 12 mmol/L 02/12/19 04:33 BUN 11 mg/dL (9-20) 02/12/19 04:33 Creatinine 0.4 mg/dL (0.8-1.5) L 02/12/19 04:33 Estimated GFR > 60 ml/min 02/12/19 04:33 BUN/Creatinine Ratio 28 % 02/12/19 04:33 Glucose 79 mg/dL (75-100) 02/12/19 04:33 Calcium 7.6 mg/dL (8.4-10.2) L 02/12/19 04:33 Magnesium 1.80 mg/dL (1.7-2.3) 01/29/19 05:13 Iron 7 ug/dL (49-181) L 01/28/19 07:06 TIBC 92 mcg/dL (250-450) L 01/28/19 07:06 % Saturation 7.61 % 01/28/19 07:06 Transferrin 89 mg/dl (180-329) L 01/28/19 07:06 Total Bilirubin 0.40 mg/dL (0.1-1.2) 01/27/19 10:19 AST 23 units/L (5-40) 01/27/19 10:19 ALT 20 units/L (7-56) 01/27/19 10:19 Alkaline Phosphatase 111 units/L (35-129) 01/27/19 10:19 Troponin T < 0.010 ng/mL (0.00-0.029) 01/27/19 10:19 Total Protein 5.9 g/dL (6.3-8.2) L 01/27/19 10:19 Albumin 1.9 g/dL (3.9-5) L 01/27/19 10:19 Albumin/Globulin Ratio 0.5 % 01/27/19 10:19 Vitamin B12 1887 pg/mL (211-911) H 01/28/19 07:06 RBC Folic Acid >1000 ng/mL (>280) 01/28/19 07:06 TSH 19.170 mlU/mL (0.270-4.200) H 02/11/19 16:29 Free T4 0.76 ng/dL (0.76-1.46) 02/03/19 13:46 Thyroxine (T4) 4.3 ug/dL (4.0-12.0) 02/03/19 13:46 Active Medications - Current Medications Current Medications: Generic Name Dose Route Start Last Admin Trade Name Freq PRN Reason Stop Dose Admin Amiodarone HCl 200 mg 02/05/19 14:00 02/11/19 09:51 Cordarone PO Not Given QDAY JONI Aspirin 81 mg 01/28/19 10:00 02/11/19 13:35 Halfprin Ec PO 81 mg QDAY JONI Administration Cyclobenzaprine HCl 10 mg 01/30/19 08:30 02/10/19 19:03 Flexeril PO 10 mg Q8H PRN Administration Muscle Spasm Diltiazem HCl 30 mg 02/05/19 14:00 02/12/19 05:07 Cardizem PO Not Given Q6HR JONI Ferrous Sulfate 325 mg 01/28/19 10:00 02/11/19 13:35 Feosol PO 325 mg DAILY JONI Administration Hydromorphone HCl 0.5 mg 02/07/19 12:37 02/10/19 20:40 Dilaudid IV 0.5 mg DAILY PRN Administration Wound Care Sodium Chloride 1,000 mls @ 100 mls/hr 02/11/19 14:00 02/11/19 22:18 Nacl 0.9% 1000 Ml IV 100 mls/hr DIRECT JONI Administration Levothyroxine Sodium 150 mcg 02/12/19 08:00 Synthroid PO DAILY@0600 JONI Metoprolol Tartrate 2.5 mg 01/29/19 12:51 Lopressor IV Q6HR PRN HR>130 Metoprolol Tartrate 25 mg 02/05/19 14:00 02/11/19 22:17 Lopressor PO Not Given BID JONI Nicotine 21 mg 02/12/19 10:00 Habitrol TD Q24HR [facility] Pantoprazole Sodium 40 mg 01/28/19 10:00 02/11/19 13:26 Protonix PO 40 mg QDAY JONI Administration Tramadol HCl 50 mg 02/05/19 15:44 02/11/19 22:14 Ultram PO 50 mg Q6H PRN Administration Pain, Moderate (4-6) Nutrition/Malnutrition Assess - Dietary Evaluation Nutrition/Malnutrition Findings: Nutrition Notes Start: 01/28/19 15:47 Freq: Status: Active Protocol: Document 02/10/19 10:28 CP (Rec: 02/10/19 10:32 CP [email or web address]) Co-Sign 02/10/19 10:28 LP Nutrition Notes Initial or Follow up Brief Note Subjective/Other Information Pt is eating 100% of his meals and has good appetite. Nutrition Intervention Revisit per MD consult or patient Sign Off request:
--- NOTE | 2019-02-12 08:30 | Progress Note ---
Assessment and Plan Generalized pain -chief complaint Atrial fibrillation, paroxysmal on amiodarone, diltiazem and metoprolol patient is not a candidate for oral anticoagulation s/t severe anemia and recent GI bleed. TSH 19.1 Unilateral LE edema LE venous doppler reports no evidence of DVT Popliteal cyst s/p I&D Recent GI bleed recent EGD workup revealed gastric ulcer Leukocytosis Chronic Anemia Hypothyroidism Hyponatremia Elevated liver transaminase Chronic lung disease Tobacco abuse Ascending thoracic aorta aneurysm measuring 5cm An echocardiogram 12/2018 reveal moderate aortic valve calcification with moderate to severe aortic stenosis. Left ventricular systolic function is normal, EF 60%. Small fixed apical wall defect, no reversible ischemia on MPI done 01/2018. Recommend: Continue diltiazem, metoprolol and amiodarone for suppression of paroxysmal atrial fibrillation. Subjective Date of service: 02/12/19 Principal diagnosis: Abscess Interval history: Patient is resting in bed comfortably. Complains of generalized pain. Objective Vital Signs Temp Pulse Pulse Resp BP Pulse Ox 02/12/19 07:35 98.2 F 114 H 18 99/56 92 02/12/19 04:41 94/58 02/12/19 02:20 124 H 98 02/12/19 02:19 98.3 F 20 103/60 02/11/19 22:10 74 02/11/19 21:14 68 18 02/11/19 19:36 98.2 F 20 02/11/19 19:35 86/46 02/11/19 19:34 83/52 02/11/19 17:54 80 110/60 02/11/19 13:41 98.4 F 83 18 88/47 92 02/11/19 12:21 98.5 F 111 H 18 86/45 89 02/11/19 11:45 126 H 12 92/53 95 02/11/19 11:40 121 H 106/46 02/11/19 11:30 127 H 14 114/39 97 02/11/19 11:25 120 H 14 99/65 96 02/11/19 11:20 107 H 15 100/58 96 02/11/19 11:15 118 H 15 99/50 98 02/11/19 11:10 125 H 15 89/59 97 02/11/19 11:05 97.4 F L 122 H 18 95/64 98 02/11/19 09:30 60 18 96 02/11/19 08:49 97 - Physical Examination General: No Apparent Distress HEENT: Positive: PERRL Neck: Positive: trachea midline Cardiac: Positive: irregularly irregular Lungs: Positive: Decreased Breath Sounds, Rales Neuro: Positive: Grossly Intact, Weakness - Labs and Meds CBC 02/12/19 Range/Units 04:33 WBC 14.6 H (4.5-11.0) K/mm3 RBC 2.55 L (3.65-5.03) M/mm3 Hgb 7.6 L (11.8-15.2) gm/dl Hct 23.9 L (35.5-45.6) % Plt Count 374 (140-440) K/mm3 Comprehensive Metabolic Panel 02/12/19 Range/Units 04:33 Sodium 134 L (137-145) mmol/L Potassium 4.3 (3.6-5.0) mmol/L Chloride 96.0 L (98-107) mmol/L Carbon Dioxide 30 D (22-30) mmol/L BUN 11 (9-20) mg/dL Creatinine 0.4 L (0.8-1.5) mg/dL Glucose 79 (75-100) mg/dL Calcium 7.6 L (8.4-10.2) mg/dL
--- NOTE | 2019-02-12 09:16 | Progress Note ---
Assessment and Plan - Patient Problems (1) Rupture of popliteal cyst Current Visit: Yes Status: Acute Plan to address problem: Pt stable. s/p I&D of left calf fluid collection (bedside and OR - 02/11 - POD#1). Wound cleaned out. Wound vac in place. Spoke with Wound Care Nurse - they will change on Saturday. Darker fluid probably related to Surgicel that was placed in OR. (expected appearance). 1) ok to ambulate 2) Keep leg elevated when in bed 3) will ultimately need to be followed in Wound Clinic Please call with questions. Time=10min Subjective Date of service: 02/12/19 Patient Reports: Positive: no new complaints, other (no issues o/n) Objective Vital Signs - 12hr 02/11/19 02/11/19 02/12/19 21:14 22:10 02:19 Temperature 98.3 F Pulse Rate 74 Pulse Rate [ 68 Right Radial] Respiratory 18 20 Rate Blood Pressure 103/60 O2 Sat by Pulse Oximetry 02/12/19 02/12/19 02/12/19 02:20 04:41 07:35 Temperature 98.2 F Pulse Rate 124 H 114 H Pulse Rate [ Right Radial] Respiratory 18 Rate Blood Pressure 94/58 99/56 O2 Sat by Pulse 98 92 Oximetry 02/12/19 08:52 Temperature Pulse Rate Pulse Rate [ Right Radial] Respiratory Rate Blood Pressure O2 Sat by Pulse 94 Oximetry - General physical appearance no distress, no pain - Musculoskeletal other (left calf soft. Wound vac intact. serosang drainage. ) - Labs 02/12/19 04:33 02/12/19 04:33 Diabetes panel 02/12/19 Range/Units 04:33 Sodium 134 L (137-145) mmol/L Potassium 4.3 (3.6-5.0) mmol/L Chloride 96.0 L (98-107) mmol/L Carbon Dioxide 30 D (22-30) mmol/L BUN 11 (9-20) mg/dL Creatinine 0.4 L (0.8-1.5) mg/dL Glucose 79 (75-100) mg/dL Calcium 7.6 L (8.4-10.2) mg/dL Thyroid panel 02/11/19 Range/Units 16:29 TSH 19.170 H (0.270-4.200) mlU/mL Calcium panel 02/12/19 Range/Units 04:33 Calcium 7.6 L (8.4-10.2) mg/dL Pituitary panel 02/11/19 02/12/19 Range/Units 16:29 04:33 Sodium 134 L (137-145) mmol/L Potassium 4.3 (3.6-5.0) mmol/L Chloride 96.0 L (98-107) mmol/L Carbon Dioxide 30 D (22-30) mmol/L BUN 11 (9-20) mg/dL Creatinine 0.4 L (0.8-1.5) mg/dL Glucose 79 (75-100) mg/dL Calcium 7.6 L (8.4-10.2) mg/dL TSH 19.170 H (0.270-4.200) mlU/mL Adrenal panel 02/12/19 Range/Units 04:33 Sodium 134 L (137-145) mmol/L Potassium 4.3 (3.6-5.0) mmol/L Chloride 96.0 L (98-107) mmol/L Carbon Dioxide 30 D (22-30) mmol/L BUN 11 (9-20) mg/dL Creatinine 0.4 L (0.8-1.5) mg/dL Glucose 79 (75-100) mg/dL Calcium 7.6 L (8.4-10.2) mg/dL
[2019-02-12] MEDS: PROTONIX PO SCH (09:33)
[2019-02-12] MEDS: CORDARONE PO SCH (09:33)
[2019-02-12] MEDS: FEOSOL PO SCH (09:34)
[2019-02-12] MEDS: HALFPRIN EC PO SCH (09:34)
[2019-02-12] MEDS: ULTRAM PO PRN ×3 (09:34→21:00)
[2019-02-12] MEDS: LOPRESSOR PO SCH ×2 (09:34→21:02)
[2019-02-12] MEDS ORDERED: CORDARONE 150 MG in D5W 97 ML IV ONE (13:00)
--- NOTE | 2019-02-12 15:31 | Progress Note ---
Assessment and Plan Cultures: 01/28/2019 MRSA nasal culture: Negative 01/30/2019 blood culture: No growth 02/06/2019 left leg fluid culture: No growth wound culture no growth A/P: 78-year-old male with history of bilateral knee replacement surgeries, left hip replacement 5, tobacco abuse, COPD admitted with: 1) Bilateral popliteal/Ceballos's cyst with left calf fluid collection: Status post I&D on 02/06/2019. Wound cultures no growth. No fevers, no growth on cultures with no prior antibiotic exposure. Leukocytosis likely reactive, Trending up. 2) Peripheral vascular disease: Left lower extremity. 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 Negative for DVT. s/p I & D washout in the OR today with wound vac placement- Dr. Michaels following. 3) Tobacco abuse 4) A.fib: cardiology following. No anticoagulation due to anemia and h/o GI bleed. Recs: Continue to monitor off antibiotics CRP ordered Continue to monitor WBC CBC ordered for tomorrow [facility] M: [id number] O:[phone] Subjective Date of service: 02/12/19 Principal diagnosis: Abscess Interval history: Patient seen and examined. Reports decreased left leg pain and tenderness. + Wound Vac. No fevers. Objective - Exam Narrative Exam: General appearance: Alert in NAD, conversant. No acute distress Eyes: anicteric sclerae, moist conjunctivae; no lid-lag; PERRLA HENT: Atraumatic; oropharynx clear. Neck: Trachea midline; supple, no thyromegaly or lymphadenopathy Lungs: CTA CV: RRR, no murmurs Abdomen: Soft, non-tender; no masses or hepatosplenomegaly Extremities: s/p left calf I & D and washout + wound vac. 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 Neuro: alert and oriented x 3. Moving all extermities - Constitutional Vitals: Vital Signs Temp Pulse Resp BP Pulse Ox 98.2 F 110 H 18 110/60 94 02/12/19 07:35 02/12/19 13:57 02/12/19 07:35 02/12/19 13:57 02/12/19 08:52 Temperature -Last 24 Hours Temperature 98.2 F Temperature 98.3 F Temperature 98.2 F - Labs CBC & Chem 7: 02/12/19 04:33 02/12/19 04:33 Labs: Abnormal lab results 02/11/19 02/12/19 02/12/19 Range/Units 16:29 04:33 04:33 WBC 14.6 H (4.5-11.0) K/mm3 RBC 2.55 L (3.65-5.03) M/mm3 Hgb 7.6 L (11.8-15.2) gm/dl Hct 23.9 L (35.5-45.6) % RDW 20.3 H (13.2-15.2) % Sodium 134 L (137-145) mmol/L Chloride 96.0 L (98-107) mmol/L Creatinine 0.4 L (0.8-1.5) mg/dL Calcium 7.6 L (8.4-10.2) mg/dL TSH 19.170 H (0.270-4.200) mlU/mL
[2019-02-12] MEDS: NACL 0.9% 1000 ML 1,000 ML IV SCH (17:34)
[2019-02-12] MEDS: PERCOCET 5/325 PO PRN (23:22)
[2019-02-13 01:05] LABS: Basophils # (Auto) 0.2 K/mm3 (0.0-0.1); Basophils % (Auto) 1.2 % (0.0-1.8); Eosinophils # (Auto) 0.1 K/mm3 (0.0-0.4); Eosinophils % (Auto) 0.6 % (0.0-4.3); Hematocrit 23.9 % (35.5-45.6); Hemoglobin 7.6 gm/dl (11.8-15.2); Lymphocytes # (Auto) 1.2 K/mm3 (1.2-5.4); Lymphocytes % (Auto) 9.8 % (13.4-35.0); Mean Corpuscular HGB Conc 32 % (32-34); Mean Corpuscular Volume 95 fl (84-94); Monocytes # (Auto) 1.4 K/mm3 (0.0-0.8); Platelet Count 377 K/mm3 (140-440); Red Blood Count 2.53 M/mm3 (3.65-5.03)
[2019-02-13 01:06] LABS: Red Cell Distribution Width 20.8 % (13.2-15.2)
[2019-02-13] MEDS: NACL 0.9% 1000 ML 1,000 ML IV SCH ×2 (02:18→14:44)
[2019-02-13] MEDS: ULTRAM PO PRN ×3 (02:18→22:27)
[2019-02-13] MEDS: CARDIZEM PO SCH ×3 (05:32→17:25)
[2019-02-13] MEDS: SYNTHROID PO SCH (05:32)
[2019-02-13] MEDS: PERCOCET 5/325 PO PRN ×3 (05:32→16:47)
[2019-02-13] MEDS: HABITROL TD SCH (09:17)
[2019-02-13] MEDS: FEOSOL PO SCH (09:17)
[2019-02-13] MEDS: PROTONIX PO SCH (09:17)
[2019-02-13] MEDS: HALFPRIN EC PO SCH (09:17)
[2019-02-13] MEDS: CORDARONE PO SCH (09:17)
[2019-02-13] MEDS: LOPRESSOR PO SCH ×2 (09:22→22:27)
--- NOTE | 2019-02-13 10:50 | Discharge Summary ---
Providers - Providers Date of Admission: 01/27/19 15:51 Date of discharge: 02/16/19 Attending physician: ALIS SPENCER 01/27/19 19:50 Consult to Wound/ET Nurse [CONS] Routine Reason For Exam: wound eval Physical Therapy Evaluation and Treat [CONS] Routine Comment: Reason For Exam: weakness 01/28/19 06:52 Consult to Physician [CONS] Routine Comment: Consulting Provider: JOSÉ GARRIDO Physician Instructions: Reason For Exam: LLE swelling 01/28/19 14:10 Consult to Physician [CONS] Routine Comment: Consulting Provider: LEXI LANDERS Physician Instructions: Reason For Exam: bilateral ruptured bakers cyst 01/30/19 12:11 Occupational Therapy Evaluate and Treat [CONS] Routine Comment: Reason For Exam: ADLs evaluation Physical Therapy Evaluation and Treat [CONS] Routine Comment: Reason For Exam: gait evaluation/ambulatory dysfunction 01/30/19 12:14 Consult to Case Management [CONS] Routine Services Needed at Discharge: Condominium Manager Notified:: case assembler Additional Physician Instructions: SNF Placement as per family request: Please send out [facility]. 02/03/19 10:47 Consult to Physician [CONS] Routine Comment: Consulting Provider: KRISS WERNER Physician Instructions: Reason For Exam: afib rvr 02/06/19 14:53 Consult to Physician [CONS] Routine Comment: Consulting Provider: ALTON VALENTIN Physician Instructions: Reason For Exam: suspected leg abscess/ soft tissue infection Hospitalization Condition: Stable Hospital course: Patient is a 78 yo man with a history of Afib, hypertension, asthma, hypothyroid and recent GIB with Gastric ulcer s/p endoclip repair who presented to [facility] ED on 01/27/19 with left leg pains and palpitations. * EGD #1 on 01/10/19 Pre-op diagnosis: Melena, Post-op diagnosis: other (Gastric Ulcer) Findings: 1. Normal duodenum (some dried blood) 2. 1cm flat ulcer on greater curve/body, with a moderate visible vessel present - Endoclip x 1 - Cold bx of antrum to r/o H pylori 3. Clots/fluid in fundus that could not be suctioned, but no fresh blood 4. No esophageal varices * EGD #2 on 01/13/19 Pre-op diagnosis: Anemia Post-op diagnosis: other (Gastric Ulcers) Findings: 1. No blood/clots present 2. Duodenum normal 3. Gastric ulcer with clip in body without stigmata of bleeding 4. Two small antral erosions not seen previously with pigment base 5. 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 Rolon, unlikely source of leg pains -HTN (hypertension) low salt diet -Neck pains, xray showing possible spasms: added flexeril prn -Hyperkalemia, mild: monitor closely -Hypothyroidism, uncontrolled due to Amiodarone -GERD (gastroesophageal reflux disease) On PPI's -Anemia, acute on chronic GI bleed recently, no marine fisheries technician a/c -DVT prophylaxis: Off Lovenox and GI prophylaxis -Severe malnutrition, poa: Public Information Coordinator full code Recheck TSH worsened at 19.170, no Mailroom Clerk here, called [facility] for Endocrinology consultation and spoke with Sue; d/w Mailroom Clerk Dr. Peter, get free t4, Amiodarone probably causing this, can increase to 125mcg if free t4 low, which was normal so keep on levothyroxine 112mg/day Disposition: Continue inpatient care, d/c to SNF once Insurance pre- authorization done==>[facility] has accepted and insurance auth is in but the wound vac isn't here, so he will be here overall the weekend waiting on the wound vac Disposition: [id number]/[id number] SNF W [facility] CERT Time spent for discharge: 33 minutes Core Measure Documentation - Palliative Care Palliative Care/ Comfort Measures: Not Applicable - Core Measures Any of the following diagnoses?: none - VTE Discharge Requirements Deep Vein Thrombosis/Pulmonary Embolism Present on Admission: No Has pt received <5 days of overlap therapy or INR<2.0: No Anticoagulant overlap therapy prescribed at discharge: No Contraindication No Overlap Therapy order at DC: Not Indicated Exam - Physical Exam Narrative exam: Heart RATE is not 136, it is 76 and sinus Gen: thin frail, chronic disable with severe deconditioning, NAD, Awake, Orientated HEENT: NCAT, EOMI, PERRL, OP Clear Neck: neck OA, no adenopathy, no thyromegaly, no JVD CVS/Heart: RRR, normal S1S2, pulses present bilaterally Chest/Lungs: CTA B, Symmetrical chest expansion, good air entry bilaterally GI/Abdomen: soft, NTND, good bowel sounds, no guarding or rebound /Bladder: no suprapubic tenderness, no CVA or paraspinal tenderness Extermity/Skin: left leg with surgical dsg intact MSK: FROM x 4 Neuro: CN 2-12 grossly intact, no new focal deficits Psych: calm - Constitutional Vitals: Temp Pulse Resp BP Pulse Ox 98.6 F 136 H 22 101/63 96 02/13/19 08:06 02/13/19 09:22 02/13/19 10:37 02/13/19 09:22 02/13/19 08:58 Plan Activity: up only with assistance, fall precautions, other (no strenous activity) Diet: per dietitian instruction Follow up with: GEO KUMAR [Other] - 3-5 Days LEXI LANDERS MD [Staff Physician] - 7 Days JOSÉ GARRIDO MD [Staff Physician] - 6 Weeks KRISS WERNER MD [Staff Physician] - 10 Days ALTON VALENTIN MD [Staff Physician] - 14 Days Prescriptions: Polyethylene Glycol 3350 [Miralax 3350] 17 gm PO QDAY PRN #15 packet PRN Reason: Constipation oxyCODONE /ACETAMINOPHEN [Percocet 5/325 mg] 1 tab PO Q6H PRN #20 tablet PRN Reason: Pain , Severe (7-10)
--- NOTE | 2019-02-13 12:25 | Progress Note ---
Assessment and Plan Generalized pain -chief complaint Atrial fibrillation, paroxysmal on amiodarone, diltiazem and metoprolol patient is not a candidate for oral anticoagulation s/t severe anemia and recent GI bleed. TSH 19.1 Unilateral LE edema LE venous doppler reports no evidence of DVT Popliteal cyst s/p I&D Recent GI bleed recent EGD workup revealed gastric ulcer Leukocytosis Chronic Anemia Hypothyroidism Hyponatremia Elevated liver transaminase Chronic lung disease Tobacco abuse Ascending thoracic aorta aneurysm measuring 5cm An echocardiogram 12/2018 reveal moderate aortic valve calcification with moderate to severe aortic stenosis. Left ventricular systolic function is normal, EF 60%. Small fixed apical wall defect, no reversible ischemia on MPI done 01/2018. Recommend: Continue diltiazem, metoprolol and amiodarone for suppression of paroxysmal atrial fibrillation. Subjective Date of service: 02/13/19 Principal diagnosis: Abscess Interval history: Patient is resting in bed comfortably. Reverted to sinus rhythm on telemetry. Objective Vital Signs Temp Pulse Pulse Resp BP BP Pulse Ox 02/13/19 11:10 74 94/48 02/13/19 10:58 74 94/48 90 02/13/19 10:37 22 02/13/19 09:54 20 02/13/19 09:22 136 H 101/63 02/13/19 08:58 22 90 02/13/19 08:54 20 02/13/19 08:06 98.6 F 136 H 20 101/63 94 02/13/19 05:31 97/62 02/13/19 02:25 97.9 F 120 H 18 95/53 94 02/13/19 02:21 97.9 F 126 H 18 95/53 98 02/13/19 02:00 97.9 F 109 H 16 85/54 97 02/12/19 23:25 100/64 02/12/19 21:11 102 H 02/12/19 21:04 97 02/12/19 20:49 98.2 F 20 102/58 02/12/19 19:29 69 20 97 02/12/19 17:52 115 H 110/60 02/12/19 17:51 110 H 22 110/60 02/12/19 13:57 110 H 110/60 02/12/19 13:25 98.6 F 116 H 18 102/57 92 - Physical Examination General: No Apparent Distress HEENT: Positive: PERRL Neck: Positive: trachea midline Cardiac: Positive: Reg Rate and Rhythm Lungs: Positive: Decreased Breath Sounds, Rales Neuro: Positive: Grossly Intact, Weakness Extremities: Present: edema (unilateral) - Labs and Meds CBC 02/13/19 Range/Units 00:36 WBC 12.6 H (4.5-11.0) K/mm3 RBC 2.53 L (3.65-5.03) M/mm3 Hgb 7.6 L (11.8-15.2) gm/dl Hct 23.9 L (35.5-45.6) % Plt Count 377 (140-440) K/mm3 Lymph # 1.2 (1.2-5.4) K/mm3 [place] # 1.4 H (0.0-0.8) K/mm3 Eos # 0.1 (0.0-0.4) K/mm3 Baso # 0.2 H (0.0-0.1) K/mm3
--- NOTE | 2019-02-13 12:42 | Progress Note ---
Assessment and Plan Assessment and plan: Patient is a 78 yo man with a history of Afib, hypertension, asthma, hypothyroid and recent GIB with Gastric ulcer s/p endoclip repair who presented to [facility] ED on 01/27/19 with left leg pains and palpitations. * EGD #1 on 01/10/19 Pre-op diagnosis: Melena, Post-op diagnosis: other (Gastric Ulcer) Findings: 1. Normal duodenum (some dried blood) 2. 1cm flat ulcer on greater curve/body, with a moderate visible vessel present - Endoclip x 1 - Cold bx of antrum to r/o H pylori 3. Clots/fluid in fundus that could not be suctioned, but no fresh blood 4. No esophageal varices * EGD #2 on 01/13/19 Pre-op diagnosis: Anemia Post-op diagnosis: other (Gastric Ulcers) Findings: 1. No blood/clots present 2. Duodenum normal 3. Gastric ulcer with clip in body without stigmata of bleeding 4. Two small antral erosions not seen previously with pigment base 5. 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 Rolon, unlikely source of leg pains -HTN (hypertension) low salt diet -Neck pains, xray showing possible spasms: added flexeril prn -Hyperkalemia, mild: monitor closely -Hypothyroidism, uncontrolled: adjust synthroid -GERD (gastroesophageal reflux disease) On PPI's -Anemia, acute on chronic GI bleed recently, no housecleaner a/c -DVT prophylaxis: Off Lovenox and GI prophylaxis -Severe malnutrition, poa: [employer] full code Recheck TSH worsened at 19.170, no [employer] here, called [place] for Endocrinology consultation and spoke with Sue; d/w [employer] Dr. Peter, get free t4, Amiodarone probably causing this, can increase to 125mcg if free t4 low. Disposition: Continue inpatient care, d/c to SNF once Insurance pre- authorization done==>[facility] has accepted and insurance auth is in but the wound vac isn't here, so he will be here overall the weekend waiting on the wound vac History Interval history: Patient was seen and examined. Follow-up on current diagnosis of afib with rvr and left leg pains, neck pains better. Overnight uneventful. Patient denies any chest pain, shortness breath, nausea/vomiting or severe headaches. Imaging, nursing note, chart, labs and old chart reviewed. Discussed with patient. Hospitalist Physical - Physical exam Narrative exam: Heart RATE is not 136, it is 76 and sinus Gen: thin frail, chronic disable with severe deconditioning, NAD, Awake, Orientated HEENT: NCAT, EOMI, PERRL, OP Clear Neck: neck OA, no adenopathy, no thyromegaly, no JVD CVS/Heart: RRR, normal S1S2, pulses present bilaterally Chest/Lungs: CTA B, Symmetrical chest expansion, good air entry bilaterally GI/Abdomen: soft, NTND, good bowel sounds, no guarding or rebound /Bladder: no suprapubic tenderness, no CVA or paraspinal tenderness Extermity/Skin: left leg with surgical dsg intact MSK: FROM x 4 Neuro: CN 2-12 grossly intact, no new focal deficits Psych: calm - Constitutional Vitals: Temp Pulse Resp BP Pulse Ox 98.6 F 74 22 94/48 90 02/13/19 08:06 02/13/19 11:10 02/13/19 10:37 02/13/19 11:10 02/13/19 10:58 General appearance: Present: no acute distress Results - Labs CBC & Chem 7: 02/13/19 00:36 02/12/19 04:33 Labs: Laboratory Last Values WBC 12.6 K/mm3 (4.5-11.0) H 02/13/19 00:36 RBC 2.53 M/mm3 (3.65-5.03) L 02/13/19 00:36 Hgb 7.6 gm/dl (11.8-15.2) L 02/13/19 00:36 Hct 23.9 % (35.5-45.6) L 02/13/19 00:36 MCV 95 fl (84-94) H 02/13/19 00:36 MCH 30 pg (28-32) 02/13/19 00:36 MCHC 32 % (32-34) 02/13/19 00:36 RDW 20.8 % (13.2-15.2) H 02/13/19 00:36 Plt Count 377 K/mm3 (140-440) 02/13/19 00:36 Lymph % (Auto) 9.8 % (13.4-35.0) L 02/13/19 00:36 [place] % (Auto) 11.0 % (0.0-7.3) H 02/13/19 00:36 Eos % (Auto) 0.6 % (0.0-4.3) 02/13/19 00:36 Baso % (Auto) 1.2 % (0.0-1.8) 02/13/19 00:36 Lymph # 1.2 K/mm3 (1.2-5.4) 02/13/19 00:36 [place] # 1.4 K/mm3 (0.0-0.8) H 02/13/19 00:36 Eos # 0.1 K/mm3 (0.0-0.4) 02/13/19 00:36 Baso # 0.2 K/mm3 (0.0-0.1) H 02/13/19 00:36 Add Manual Diff Complete 01/27/19 10:23 Total Counted 100 01/27/19 10:23 Seg Neutrophils % 77.4 % (40.0-70.0) H 02/13/19 00:36 Seg Neuts % (Manual) 90.0 % (40.0-70.0) H 01/27/19 10:23 Band Neutrophils % 0 % 01/27/19 10:23 Lymphocytes % (Manual) 7.0 % (13.4-35.0) L 01/27/19 10:23 Reactive Lymphs % (Man) 0 % 01/27/19 10:23 Monocytes % (Manual) 3.0 % (0.0-7.3) 01/27/19 10:23 Eosinophils % (Manual) 0 % (0.0-4.3) 01/27/19 10:23 Metamyelocytes % 0 % 01/27/19 10:23 Myelocytes % 0 % 01/27/19 10:23 Promyelocytes % 0 % 01/27/19 10:23 Blast Cells % 0 % 01/27/19 10:23 Nucleated RBC % Not Reportable 01/27/19 10:23 Seg Neutrophils # 9.8 K/mm3 (1.8-7.7) H 02/13/19 00:36 Seg Neutrophils # Man 10.7 K/mm3 (1.8-7.7) H 01/27/19 10:23 Band Neutrophils # 0.0 K/mm3 01/27/19 10:23 Lymphocytes # (Manual) 0.8 K/mm3 (1.2-5.4) L 01/27/19 10:23 Abs React Lymphs (Man) 0.0 K/mm3 01/27/19 10:23 Monocytes # (Manual) 0.4 K/mm3 (0.0-0.8) 01/27/19 10:23 Eosinophils # (Manual) 0.0 K/mm3 (0.0-0.4) 01/27/19 10:23 Basophils # (Manual) 0.0 K/mm3 (0.0-0.1) 01/27/19 10:23 Metamyelocytes # 0.0 K/mm3 01/27/19 10:23 Myelocytes # 0.0 K/mm3 01/27/19 10:23 Promyelocytes # 0.0 K/mm3 01/27/19 10:23 Blast Cells # 0.0 K/mm3 01/27/19 10:23 WBC Morphology Not Reportable 01/27/19 10:23 Hypersegmented Neuts Not Reportable 01/27/19 10:23 Hyposegmented Neuts Not Reportable 01/27/19 10:23 Hypogranular Neuts Not Reportable 01/27/19 10:23 Smudge Cells Not Reportable 01/27/19 10:23 Toxic Granulation Not Reportable 01/27/19 10:23 Toxic Vacuolation Not Reportable 01/27/19 10:23 Dohle Bodies Not Reportable 01/27/19 10:23 Pelger-Huet Anomaly Not Reportable 01/27/19 10:23 Eugenio Rods Not Reportable 01/27/19 10:23 Platelet Estimate Consistent w auto 01/27/19 10:23 Clumped Platelets Not Reportable 01/27/19 10:23 Plt Clumps, EDTA Not Reportable 01/27/19 10:23 Large Platelets Not Reportable 01/27/19 10:23 Giant Platelets Rare 01/27/19 10:23 Platelet Satelliting Not Reportable 01/27/19 10:23 Plt Morphology Comment Not Reportable 01/27/19 10:23 RBC Morphology Not Reportable 01/27/19 10:23 Dimorphic RBCs Not Reportable 01/27/19 10:23 Polychromasia Not Reportable 01/27/19 10:23 Hypochromasia Not Reportable 01/27/19 10:23 Poikilocytosis Few 01/27/19 10:23 Anisocytosis Few 01/27/19 10:23 Microcytosis Not Reportable 01/27/19 10:23 Macrocytosis Not Reportable 01/27/19 10:23 Spherocytes Not Reportable 01/27/19 10:23 Pappenheimer Bodies Not Reportable 01/27/19 10:23 Sickle Cells Not Reportable 01/27/19 10:23 Target Cells Not Reportable 01/27/19 10:23 Tear Drop Cells Not Reportable 01/27/19 10:23 Ovalocytes Not Reportable 01/27/19 10:23 Helmet Cells Not Reportable 01/27/19 10:23 [place] Bodies Not Reportable 01/27/19 10:23 Leslie Rings Not Reportable 01/27/19 10:23 Jackson Cells Not Reportable 01/27/19 10:23 Bite Cells Not Reportable 01/27/19 10:23 Crenated Cell Not Reportable 01/27/19 10:23 Elliptocytes Rare 01/27/19 10:23 Acanthocytes (Spur) Not Reportable 01/27/19 10:23 Rouleaux Not Reportable 01/27/19 10:23 Hemoglobin C Crystals Not Reportable 01/27/19 10:23 Schistocytes Not Reportable 01/27/19 10:23 Malaria parasites Not Reportable 01/27/19 10:23 Derick Bodies Not Reportable 01/27/19 10:23 Hem Pathologist Commnt No 01/27/19 10:23 Sodium 134 mmol/L (137-145) L 02/12/19 04:33 Potassium 4.3 mmol/L (3.6-5.0) 02/12/19 04:33 Chloride 96.0 mmol/L (98-107) L 02/12/19 04:33 Carbon Dioxide 30 mmol/L (22-30) D 02/12/19 04:33 Anion Gap 12 mmol/L 02/12/19 04:33 BUN 11 mg/dL (9-20) 02/12/19 04:33 Creatinine 0.4 mg/dL (0.8-1.5) L 02/12/19 04:33 Estimated GFR > 60 ml/min 02/12/19 04:33 BUN/Creatinine Ratio 28 % 02/12/19 04:33 Glucose 79 mg/dL (75-100) 02/12/19 04:33 Calcium 7.6 mg/dL (8.4-10.2) L 02/12/19 04:33 Magnesium 1.80 mg/dL (1.7-2.3) 01/29/19 05:13 Iron 7 ug/dL (49-181) L 01/28/19 07:06 TIBC 92 mcg/dL (250-450) L 01/28/19 07:06 % Saturation 7.61 % 01/28/19 07:06 Transferrin 89 mg/dl (180-329) L 01/28/19 07:06 Total Bilirubin 0.40 mg/dL (0.1-1.2) 01/27/19 10:19 AST 23 units/L (5-40) 01/27/19 10:19 ALT 20 units/L (7-56) 01/27/19 10:19 Alkaline Phosphatase 111 units/L (35-129) 01/27/19 10:19 Troponin T < 0.010 ng/mL (0.00-0.029) 01/27/19 10:19 C-Reactive Protein 4.20 mg/dL (0.00-1.30) H 02/13/19 00:36 Total Protein 5.9 g/dL (6.3-8.2) L 01/27/19 10:19 Albumin 1.9 g/dL (3.9-5) L 01/27/19 10:19 Albumin/Globulin Ratio 0.5 % 01/27/19 10:19 Vitamin B12 1887 pg/mL (211-911) H 01/28/19 07:06 RBC Folic Acid >1000 ng/mL (>280) 01/28/19 07:06 TSH 19.170 mlU/mL (0.270-4.200) H 02/11/19 16:29 Free T4 0.88 ng/dL (0.76-1.46) 02/12/19 09:16 Thyroxine (T4) 4.3 ug/dL (4.0-12.0) 02/03/19 13:46 Active Medications - Current Medications Current Medications: Generic Name Dose Route Start Last Admin Trade Name Freq PRN Reason Stop Dose Admin Amiodarone HCl 200 mg 02/05/19 14:00 02/13/19 09:17 Cordarone PO 200 mg QDAY JONI Administration Aspirin 81 mg 01/28/19 10:00 02/13/19 09:17 Halfprin Ec PO 81 mg QDAY JONI Administration Cyclobenzaprine HCl 10 mg 01/30/19 08:30 02/10/19 19:03 Flexeril PO 10 mg Q8H PRN Administration Muscle Spasm Diltiazem HCl 30 mg 02/05/19 14:00 02/13/19 11:10 Cardizem PO Not Given Q6HR JONI Ferrous Sulfate 325 mg 01/28/19 10:00 02/13/19 09:17 Feosol PO 325 mg DAILY JONI Administration Hydromorphone HCl 0.5 mg 02/07/19 12:37 02/10/19 20:40 Dilaudid IV 0.5 mg DAILY PRN Administration Wound Care Sodium Chloride 1,000 mls @ 100 mls/hr 02/11/19 14:00 02/13/19 02:18 Nacl 0.9% 1000 Ml IV 100 mls/hr DIRECT JONI Administration Levothyroxine Sodium 125 mcg 02/13/19 06:00 02/13/19 05:32 Synthroid PO 125 mcg DAILY@0600 JONI Administration Metoprolol Tartrate 2.5 mg 01/29/19 12:51 Lopressor IV Q6HR PRN HR>130 Metoprolol Tartrate 25 mg 02/05/19 14:00 02/13/19 09:22 Lopressor PO Not Given BID JONI Nicotine 21 mg 02/12/19 10:00 02/13/19 09:17 Habitrol TD 21 mg Q24HR JONI Administration Oxycodone/Acetaminophen 1 tab 02/12/19 22:30 02/13/19 10:37 Percocet 5/325 PO 1 tab Q6H PRN Administration Pain, Moderate (4-6) Pantoprazole Sodium 40 mg 01/28/19 10:00 02/13/19 09:17 Protonix PO 40 mg QDAY JONI Administration Tramadol HCl 50 mg 02/05/19 15:44 02/13/19 08:54 Ultram PO 50 mg Q6H PRN Administration Pain, Moderate (4-6) Nutrition/Malnutrition Assess - Dietary Evaluation Nutrition/Malnutrition Findings: Nutrition Notes Start: 01/28/19 15:47 Freq: Status: Active Protocol: Document 02/10/19 10:28 CP (Rec: 02/10/19 10:32 CP [email or web address]) Co-Sign 02/10/19 10:28 LP Nutrition Notes Initial or Follow up Brief Note Subjective/Other Information Pt is eating 100% of his meals and has good appetite. Nutrition Intervention Revisit per MD consult or patient Sign Off request:
--- NOTE | 2019-02-13 16:09 | Progress Note ---
Assessment and Plan Cultures: 01/28/2019 MRSA nasal culture: Negative 01/30/2019 blood culture: No growth 02/06/2019 left leg fluid culture: No growth wound culture no growth A/P: 78-year-old male with history of bilateral knee replacement surgeries, left hip replacement 5, tobacco abuse, COPD admitted with: 1) Bilateral popliteal/Ceballos's cyst with left calf fluid collection: Status post I&D on 02/06/2019. Wound cultures no growth. No fevers, no growth on cultures with no prior antibiotic exposure. Leukocytosis likely reactive, Trending up. crp 4. 2) Peripheral vascular disease: Left lower extremity. Duplex Scan on 01/28/19 shows greater than 75% stenosis at the left DIMPLE and hemodynamically significant stenosis in the left VALANCE CUTTER. Negative for DVT. s/p I & D washout in the OR today with wound vac placement- Dr. Michaels following. 3) Tobacco abuse 4) A.fib: cardiology following. No anticoagulation due to anemia and h/o GI bleed. Recs: Continue to monitor off antibiotics Continue to monitor WBC will sign off Misty Weaver MD Infectious Diseases Emergency Room Clerk [facility] M [phone] O [phone] Subjective Date of service: 02/13/19 Principal diagnosis: Abscess Interval history: Still c/o right leg pain better no fever. Asking for pain meds. ROS: as above rest negative. Objective - Exam Narrative Exam: General appearance: Alert in NAD, conversant Eyes: anicteric sclerae, moist conjunctivae; no lid-lag; PERRLA HENT: Atraumatic; oropharynx clear. Neck: Trachea midline; supple, no thyromegaly or lymphadenopathy Lungs: CTA CV: RRR, no murmurs Abdomen: Soft, non-tender; no masses or hepatosplenomegaly Extremities: left calf wound with vac Skin: Normal temperature, turgor and texture; no rash, ulcers or subcutaneous nodules Psych: Appropriate affect, alert and oriented to person, place and time. Neuro: alert and oriented x 3. Moving all extermities - Constitutional Vitals: Vital Signs Temp Pulse Resp BP Pulse Ox 97.9 F 79 20 105/50 95 02/13/19 14:32 02/13/19 14:32 02/13/19 14:32 02/13/19 14:32 02/13/19 14:32 Temperature -Last 24 Hours Temperature 97.9 F Temperature 98.6 F Temperature 97.9 F Temperature 97.9 F Temperature 97.9 F Temperature 98.2 F - Labs CBC & Chem 7: 02/13/19 00:36 02/12/19 04:33 Labs: Abnormal lab results 02/13/19 02/13/19 Range/Units 00:36 00:36 WBC 12.6 H (4.5-11.0) K/mm3 RBC 2.53 L (3.65-5.03) M/mm3 Hgb 7.6 L (11.8-15.2) gm/dl Hct 23.9 L (35.5-45.6) % MCV 95 H (84-94) fl RDW 20.8 H (13.2-15.2) % Lymph % (Auto) 9.8 L (13.4-35.0) % [place] % (Auto) 11.0 H (0.0-7.3) % [place] # 1.4 H (0.0-0.8) K/mm3 Baso # 0.2 H (0.0-0.1) K/mm3 Seg Neutrophils % 77.4 H (40.0-70.0) % Seg Neutrophils # 9.8 H (1.8-7.7) K/mm3 C-Reactive Protein 4.20 H (0.00-1.30) mg/dL
[2019-02-14] MEDS: CARDIZEM PO SCH ×4 (00:56→18:28)
[2019-02-14] MEDS: NACL 0.9% 1000 ML 1,000 ML IV SCH (00:58)
[2019-02-14] MEDS: ULTRAM PO PRN ×2 (07:19→21:52)
[2019-02-14] MEDS: SYNTHROID PO SCH (07:33)
[2019-02-14] MEDS: FEOSOL PO SCH (10:29)
[2019-02-14] MEDS: CORDARONE PO SCH (10:30)
[2019-02-14] MEDS: HALFPRIN EC PO SCH (10:30)
[2019-02-14] MEDS: LOPRESSOR PO SCH ×2 (10:30→22:09)
[2019-02-14] MEDS: PROTONIX PO SCH (10:31)
[2019-02-14] MEDS: FLEXERIL PO PRN ×2 (10:31→22:09)
[2019-02-14] MEDS: HABITROL TD SCH (10:32)
--- NOTE | 2019-02-14 11:27 | Progress Note ---
Assessment and Plan - Patient Problems (1) Paroxysmal atrial fibrillation Current Visit: Yes Status: Acute Plan to address problem: Continue medical therapy for atrial fibrillation suppression as previously outlined. Stable cardiovascular status. Subjective Date of service: 02/14/19 Principal diagnosis: Abscess Interval history: Patient is comfortable, no cardiac complaints. On telemetry, he is in a stable normal sinus rhythm. Objective Vital Signs Temp Pulse Resp BP BP Pulse Ox 02/14/19 07:40 98.5 F 71 20 117/60 91 02/14/19 07:18 73 02/14/19 02:46 98.8 F 73 18 110/56 97 02/13/19 22:27 123/68 02/13/19 20:26 96 02/13/19 19:59 98.3 F 79 18 110/55 96 02/13/19 17:25 81 112/60 02/13/19 17:24 81 112/60 90 02/13/19 16:47 20 02/13/19 14:32 97.9 F 79 20 105/50 95 02/13/19 14:17 91 - Physical Examination General: No Apparent Distress HEENT: Positive: PERRL Neck: Positive: trachea midline Cardiac: Positive: Reg Rate and Rhythm Lungs: Positive: Decreased Breath Sounds Neuro: Positive: Grossly Intact, Weakness Abdomen: Positive: Soft Skin: Positive: Clear Extremities: Absent: edema - Imaging and Cardiology EKG: report reviewed (Afib with RVR 130/min)
--- NOTE | 2019-02-14 15:15 | Progress Note ---
Assessment and Plan Assessment and plan: Patient is a 78 yo man with a history of Afib, hypertension, asthma, hypothyroid and recent GIB with Gastric ulcer s/p endoclip repair who presented to [facility] ED on 01/27/19 with left leg pains and palpitations. * EGD #1 on 01/10/19 Pre-op diagnosis: Melena, Post-op diagnosis: other (Gastric Ulcer) Findings: 1. Normal duodenum (some dried blood) 2. 1cm flat ulcer on greater curve/body, with a moderate visible vessel present - Endoclip x 1 - Cold bx of antrum to r/o H pylori 3. Clots/fluid in fundus that could not be suctioned, but no fresh blood 4. No esophageal varices * EGD #2 on 01/13/19 Pre-op diagnosis: Anemia Post-op diagnosis: other (Gastric Ulcers) Findings: 1. No blood/clots present 2. Duodenum normal 3. Gastric ulcer with clip in body without stigmata of bleeding 4. Two small antral erosions not seen previously with pigment base 5. 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 Rolon, unlikely source of leg pains -HTN (hypertension) low salt diet -Neck pains, xray showing possible spasms: added flexeril prn -Hyperkalemia, mild: monitor closely -Hypothyroidism, uncontrolled: adjust synthroid -GERD (gastroesophageal reflux disease) On PPI's -Anemia, acute on chronic GI bleed recently, no intermediate accountant a/c -DVT prophylaxis: Off Lovenox and GI prophylaxis -Severe malnutrition, poa: Molding Sander full code Recheck TSH worsened at 19.170, no Offset Machine Operator here, called [facility] for Endocrinology consultation and spoke with Sue; d/w Offset Machine Operator Dr. Peter, get free t4, Amiodarone probably causing this, can increase to 125mcg if free t4 low. Disposition: Continue inpatient care, d/c to SNF once Insurance pre- authorization done==>[facility] has accepted and insurance auth is in but the wound vac isn't here, so he will be here overall the weekend waiting on the wound vac History Interval history: Patient was seen and examined. Follow-up on current diagnosis of afib with rvr and left leg pains, neck pains better. Overnight uneventful. Patient denies any chest pain, shortness breath, nausea/vomiting or severe headaches. Imaging, nursing note, chart, labs and old chart reviewed. Discussed with patient. Hospitalist Physical - Physical exam Narrative exam: Heart RATE is not 136, it is 76 and sinus Gen: thin frail, chronic disable with severe deconditioning, NAD, Awake, Orientated HEENT: NCAT, EOMI, PERRL, OP Clear Neck: neck OA, no adenopathy, no thyromegaly, no JVD CVS/Heart: RRR, normal S1S2, pulses present bilaterally Chest/Lungs: CTA B, Symmetrical chest expansion, good air entry bilaterally GI/Abdomen: soft, NTND, good bowel sounds, no guarding or rebound /Bladder: no suprapubic tenderness, no CVA or paraspinal tenderness Extermity/Skin: left leg with surgical dsg intact MSK: FROM x 4 Neuro: CN 2-12 grossly intact, no new focal deficits Psych: calm - Constitutional Vitals: Temp Pulse Resp BP Pulse Ox 98.5 F 71 20 117/60 91 02/14/19 07:40 02/14/19 07:40 02/14/19 07:40 02/14/19 07:40 02/14/19 07:40 General appearance: Present: no acute distress Results - Labs CBC & Chem 7: 02/13/19 00:36 02/12/19 04:33 Labs: Laboratory Last Values WBC 12.6 K/mm3 (4.5-11.0) H 02/13/19 00:36 RBC 2.53 M/mm3 (3.65-5.03) L 02/13/19 00:36 Hgb 7.6 gm/dl (11.8-15.2) L 02/13/19 00:36 Hct 23.9 % (35.5-45.6) L 02/13/19 00:36 MCV 95 fl (84-94) H 02/13/19 00:36 MCH 30 pg (28-32) 02/13/19 00:36 MCHC 32 % (32-34) 02/13/19 00:36 RDW 20.8 % (13.2-15.2) H 02/13/19 00:36 Plt Count 377 K/mm3 (140-440) 02/13/19 00:36 Lymph % (Auto) 9.8 % (13.4-35.0) L 02/13/19 00:36 [place] % (Auto) 11.0 % (0.0-7.3) H 02/13/19 00:36 Eos % (Auto) 0.6 % (0.0-4.3) 02/13/19 00:36 Baso % (Auto) 1.2 % (0.0-1.8) 02/13/19 00:36 Lymph # 1.2 K/mm3 (1.2-5.4) 02/13/19 00:36 [place] # 1.4 K/mm3 (0.0-0.8) H 02/13/19 00:36 Eos # 0.1 K/mm3 (0.0-0.4) 02/13/19 00:36 Baso # 0.2 K/mm3 (0.0-0.1) H 02/13/19 00:36 Add Manual Diff Complete 01/27/19 10:23 Total Counted 100 01/27/19 10:23 Seg Neutrophils % 77.4 % (40.0-70.0) H 02/13/19 00:36 Seg Neuts % (Manual) 90.0 % (40.0-70.0) H 01/27/19 10:23 Band Neutrophils % 0 % 01/27/19 10:23 Lymphocytes % (Manual) 7.0 % (13.4-35.0) L 01/27/19 10:23 Reactive Lymphs % (Man) 0 % 01/27/19 10:23 Monocytes % (Manual) 3.0 % (0.0-7.3) 01/27/19 10:23 Eosinophils % (Manual) 0 % (0.0-4.3) 01/27/19 10:23 Metamyelocytes % 0 % 01/27/19 10:23 Myelocytes % 0 % 01/27/19 10:23 Promyelocytes % 0 % 01/27/19 10:23 Blast Cells % 0 % 01/27/19 10:23 Nucleated RBC % Not Reportable 01/27/19 10:23 Seg Neutrophils # 9.8 K/mm3 (1.8-7.7) H 02/13/19 00:36 Seg Neutrophils # Man 10.7 K/mm3 (1.8-7.7) H 01/27/19 10:23 Band Neutrophils # 0.0 K/mm3 01/27/19 10:23 Lymphocytes # (Manual) 0.8 K/mm3 (1.2-5.4) L 01/27/19 10:23 Abs React Lymphs (Man) 0.0 K/mm3 01/27/19 10:23 Monocytes # (Manual) 0.4 K/mm3 (0.0-0.8) 01/27/19 10:23 Eosinophils # (Manual) 0.0 K/mm3 (0.0-0.4) 01/27/19 10:23 Basophils # (Manual) 0.0 K/mm3 (0.0-0.1) 01/27/19 10:23 Metamyelocytes # 0.0 K/mm3 01/27/19 10:23 Myelocytes # 0.0 K/mm3 01/27/19 10:23 Promyelocytes # 0.0 K/mm3 01/27/19 10:23 Blast Cells # 0.0 K/mm3 01/27/19 10:23 WBC Morphology Not Reportable 01/27/19 10:23 Hypersegmented Neuts Not Reportable 01/27/19 10:23 Hyposegmented Neuts Not Reportable 01/27/19 10:23 Hypogranular Neuts Not Reportable 01/27/19 10:23 Smudge Cells Not Reportable 01/27/19 10:23 Toxic Granulation Not Reportable 01/27/19 10:23 Toxic Vacuolation Not Reportable 01/27/19 10:23 Dohle Bodies Not Reportable 01/27/19 10:23 Pelger-Huet Anomaly Not Reportable 01/27/19 10:23 Eugenio Rods Not Reportable 01/27/19 10:23 Platelet Estimate Consistent w auto 01/27/19 10:23 Clumped Platelets Not Reportable 01/27/19 10:23 Plt Clumps, EDTA Not Reportable 01/27/19 10:23 Large Platelets Not Reportable 01/27/19 10:23 Giant Platelets Rare 01/27/19 10:23 Platelet Satelliting Not Reportable 01/27/19 10:23 Plt Morphology Comment Not Reportable 01/27/19 10:23 RBC Morphology Not Reportable 01/27/19 10:23 Dimorphic RBCs Not Reportable 01/27/19 10:23 Polychromasia Not Reportable 01/27/19 10:23 Hypochromasia Not Reportable 01/27/19 10:23 Poikilocytosis Few 01/27/19 10:23 Anisocytosis Few 01/27/19 10:23 Microcytosis Not Reportable 01/27/19 10:23 Macrocytosis Not Reportable 01/27/19 10:23 Spherocytes Not Reportable 01/27/19 10:23 Pappenheimer Bodies Not Reportable 01/27/19 10:23 Sickle Cells Not Reportable 01/27/19 10:23 Target Cells Not Reportable 01/27/19 10:23 Tear Drop Cells Not Reportable 01/27/19 10:23 Ovalocytes Not Reportable 01/27/19 10:23 Helmet Cells Not Reportable 01/27/19 10:23 [place] Bodies Not Reportable 01/27/19 10:23 [place] Rings Not Reportable 01/27/19 10:23 [place] Cells Not Reportable 01/27/19 10:23 Bite Cells Not Reportable 01/27/19 10:23 Crenated Cell Not Reportable 01/27/19 10:23 Elliptocytes Rare 01/27/19 10:23 Acanthocytes (Spur) Not Reportable 01/27/19 10:23 Rouleaux Not Reportable 01/27/19 10:23 Hemoglobin C Crystals Not Reportable 01/27/19 10:23 Schistocytes Not Reportable 01/27/19 10:23 Malaria parasites Not Reportable 01/27/19 10:23 Derick Bodies Not Reportable 01/27/19 10:23 Hem Pathologist Commnt No 01/27/19 10:23 Sodium 134 mmol/L (137-145) L 02/12/19 04:33 Potassium 4.3 mmol/L (3.6-5.0) 02/12/19 04:33 Chloride 96.0 mmol/L (98-107) L 02/12/19 04:33 Carbon Dioxide 30 mmol/L (22-30) D 02/12/19 04:33 Anion Gap 12 mmol/L 02/12/19 04:33 BUN 11 mg/dL (9-20) 02/12/19 04:33 Creatinine 0.4 mg/dL (0.8-1.5) L 02/12/19 04:33 Estimated GFR > 60 ml/min 02/12/19 04:33 BUN/Creatinine Ratio 28 % 02/12/19 04:33 Glucose 79 mg/dL (75-100) 02/12/19 04:33 Calcium 7.6 mg/dL (8.4-10.2) L 02/12/19 04:33 Magnesium 1.80 mg/dL (1.7-2.3) 01/29/19 05:13 Iron 7 ug/dL (49-181) L 01/28/19 07:06 TIBC 92 mcg/dL (250-450) L 01/28/19 07:06 % Saturation 7.61 % 01/28/19 07:06 Transferrin 89 mg/dl (180-329) L 01/28/19 07:06 Total Bilirubin 0.40 mg/dL (0.1-1.2) 01/27/19 10:19 AST 23 units/L (5-40) 01/27/19 10:19 ALT 20 units/L (7-56) 01/27/19 10:19 Alkaline Phosphatase 111 units/L (35-129) 01/27/19 10:19 Troponin T < 0.010 ng/mL (0.00-0.029) 01/27/19 10:19 C-Reactive Protein 4.20 mg/dL (0.00-1.30) H 02/13/19 00:36 Total Protein 5.9 g/dL (6.3-8.2) L 01/27/19 10:19 Albumin 1.9 g/dL (3.9-5) L 01/27/19 10:19 Albumin/Globulin Ratio 0.5 % 01/27/19 10:19 Vitamin B12 1887 pg/mL (211-911) H 01/28/19 07:06 RBC Folic Acid >1000 ng/mL (>280) 01/28/19 07:06 TSH 19.170 mlU/mL (0.270-4.200) H 02/11/19 16:29 Free T4 0.88 ng/dL (0.76-1.46) 02/12/19 09:16 Thyroxine (T4) 4.3 ug/dL (4.0-12.0) 02/03/19 13:46 Active Medications - Current Medications Current Medications: Generic Name Dose Route Start Last Admin Trade Name Freq PRN Reason Stop Dose Admin Amiodarone HCl 200 mg 02/05/19 14:00 02/14/19 10:30 Cordarone PO 200 mg QDAY JONI Administration Aspirin 81 mg 01/28/19 10:00 02/14/19 10:30 Halfprin Ec PO 81 mg QDAY JONI Administration Cyclobenzaprine HCl 10 mg 01/30/19 08:30 02/14/19 10:31 Flexeril PO 10 mg Q8H PRN Administration Muscle Spasm Diltiazem HCl 30 mg 02/05/19 14:00 02/14/19 07:18 Cardizem PO 30 mg Q6HR JONI Administration Ferrous Sulfate 325 mg 01/28/19 10:00 02/14/19 10:29 Feosol PO 325 mg DAILY JONI Administration Hydromorphone HCl 0.5 mg 02/07/19 12:37 02/10/19 20:40 Dilaudid IV 0.5 mg DAILY PRN Administration Wound Care Sodium Chloride 1,000 mls @ 100 mls/hr 02/11/19 14:00 02/14/19 00:58 Nacl 0.9% 1000 Ml IV 100 mls/hr DIRECT JONI Administration Levothyroxine Sodium 125 mcg 02/13/19 06:00 02/14/19 07:33 Synthroid PO 125 mcg DAILY@0600 JONI Administration Metoprolol Tartrate 2.5 mg 01/29/19 12:51 Lopressor IV Q6HR PRN HR>130 Metoprolol Tartrate 25 mg 02/05/19 14:00 02/14/19 10:30 Lopressor PO 25 mg BID JONI Administration Nicotine 21 mg 02/12/19 10:00 02/14/19 10:32 Habitrol TD 21 mg Q24HR JONI Administration Oxycodone/Acetaminophen 1 tab 02/12/19 22:30 02/13/19 16:47 Percocet 5/325 PO 1 tab Q6H PRN Administration Pain, Moderate (4-6) Pantoprazole Sodium 40 mg 01/28/19 10:00 02/14/19 10:31 Protonix PO 40 mg QDAY OJNI Administration Tramadol HCl 50 mg 02/05/19 15:44 02/14/19 07:19 Ultram PO 50 mg Q6H PRN Administration Pain, Moderate (4-6) Nutrition/Malnutrition Assess - Dietary Evaluation Nutrition/Malnutrition Findings: Nutrition Notes Start: 01/28/19 15:47 Freq: Status: Active Protocol: Document 02/10/19 10:28 CP (Rec: 02/10/19 10:32 CP [email or web address]) Co-Sign 02/10/19 10:28 LP Nutrition Notes Initial or Follow up Brief Note Subjective/Other Information Pt is eating 100% of his meals and has good appetite. Nutrition Intervention Revisit per MD consult or patient Sign Off request:
[2019-02-14] MEDS: PERCOCET 5/325 PO PRN ×2 (16:29→23:43)
[2019-02-15] MEDS: CARDIZEM PO SCH (00:42)
[2019-02-15] MEDS: SYNTHROID PO SCH (05:33)
[2019-02-15] MEDS: FEOSOL PO SCH (10:16)
[2019-02-15] MEDS: PROTONIX PO SCH (10:16)
[2019-02-15] MEDS: LOPRESSOR PO SCH ×3 (10:16→22:14)
[2019-02-15] MEDS: CORDARONE PO SCH (10:16)
[2019-02-15] MEDS: HALFPRIN EC PO SCH (10:16)
[2019-02-15] MEDS: HABITROL TD SCH (10:17)
[2019-02-15] MEDS: PERCOCET 5/325 PO PRN ×2 (11:08→18:18)
--- NOTE | 2019-02-15 11:58 | Progress Note ---
Assessment and Plan - Patient Problems (1) Paroxysmal atrial fibrillation Current Visit: Yes Status: Acute Plan to address problem: Continue medical therapy for atrial fibrillation suppression as previously outlined. Stable cardiovascular status. His TSH is elevated at 19, consistent with hypothyroidism, management per internal medicine. We will increase beta blockers and diltiazem, and discontinue amiodarone in the setting of hypothyroidism. Subjective Date of service: 02/15/19 Principal diagnosis: Abscess Interval history: Patient is comfortable, no cardiac complaints. On telemetry, he is in a stable normal sinus rhythm. Objective Vital Signs Temp Pulse Resp BP BP Pulse Ox 02/15/19 10:16 111/54 02/15/19 07:25 98.1 F 62 14 111/54 98 02/15/19 05:32 103/54 02/15/19 02:22 97/50 02/15/19 02:19 98.3 F 20 02/15/19 02:16 65 101/22 93 02/15/19 00:42 71 02/14/19 22:09 71 132/65 02/14/19 20:33 98 02/14/19 19:18 98.3 F 71 20 132/65 98 02/14/19 15:42 98.6 F 70 20 120/59 96 - Physical Examination General: No Apparent Distress HEENT: Positive: PERRL Neck: Positive: trachea midline Cardiac: Positive: Reg Rate and Rhythm Lungs: Positive: Decreased Breath Sounds Neuro: Positive: Grossly Intact, Weakness Abdomen: Positive: Soft Skin: Positive: Clear Extremities: Absent: edema - Imaging and Cardiology EKG: report reviewed (Afib with RVR 130/min)
--- NOTE | 2019-02-15 13:20 | Progress Note ---
Assessment and Plan Assessment and plan: Patient is a 78 yo man with a history of Afib, hypertension, asthma, hypothyroid and recent GIB with Gastric ulcer s/p endoclip repair who presented to [facility] ED on 01/27/19 with left leg pains and palpitations. * EGD #1 on 01/10/19 Pre-op diagnosis: Melena, Post-op diagnosis: other (Gastric Ulcer) Findings: 1. Normal duodenum (some dried blood) 2. 1cm flat ulcer on greater curve/body, with a moderate visible vessel present - Endoclip x 1 - Cold bx of antrum to r/o H pylori 3. Clots/fluid in fundus that could not be suctioned, but no fresh blood 4. No esophageal varices * EGD #2 on 01/13/19 Pre-op diagnosis: Anemia Post-op diagnosis: other (Gastric Ulcers) Findings: 1. No blood/clots present 2. Duodenum normal 3. Gastric ulcer with clip in body without stigmata of bleeding 4. Two small antral erosions not seen previously with pigment base 5. 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 Rolon, unlikely source of leg pains -HTN (hypertension) low salt diet -Neck pains, xray showing possible spasms: added flexeril prn -Hyperkalemia, mild: monitor closely -Hypothyroidism, uncontrolled: adjust synthroid -GERD (gastroesophageal reflux disease) On PPI's -Anemia, acute on chronic GI bleed recently, no fireman helper a/c -DVT prophylaxis: Off Lovenox and GI prophylaxis -Severe malnutrition, poa: Aba Tutor full code Recheck TSH worsened at 19.170, no Agricultural Chemist here, called [facility] for Endocrinology consultation and spoke with Sue; d/w Agricultural Chemist Dr. Peter, get free t4, Amiodarone probably causing this, can increase to 125mcg if free t4 low. Disposition: Continue inpatient care, d/c to SNF once Insurance pre- authorization done==>[facility] has accepted and insurance auth is in but the wound vac isn't here, so he will be here overall the weekend waiting on the wound vac History Interval history: Patient was seen and examined. Follow-up on current diagnosis of afib with rvr and left leg pains, neck pains better. Overnight uneventful. Patient denies any chest pain, shortness breath, nausea/vomiting or severe headaches. Imaging, nursing note, chart, labs and old chart reviewed. Discussed with patient. Hospitalist Physical - Physical exam Narrative exam: Heart RATE is not 136, it is 76 and sinus Gen: thin frail, chronic disable with severe deconditioning, NAD, Awake, Orientated HEENT: NCAT, EOMI, PERRL, OP Clear Neck: neck OA, no adenopathy, no thyromegaly, no JVD CVS/Heart: RRR, normal S1S2, pulses present bilaterally Chest/Lungs: CTA B, Symmetrical chest expansion, good air entry bilaterally GI/Abdomen: soft, NTND, good bowel sounds, no guarding or rebound /Bladder: no suprapubic tenderness, no CVA or paraspinal tenderness Extermity/Skin: left leg with surgical dsg intact MSK: FROM x 4 Neuro: CN 2-12 grossly intact, no new focal deficits Psych: calm - Constitutional Vitals: Temp Pulse Resp BP Pulse Ox 98.1 F 62 14 111/54 98 02/15/19 07:25 02/15/19 07:25 02/15/19 07:25 02/15/19 10:16 02/15/19 07:25 General appearance: Present: no acute distress Results - Labs CBC & Chem 7: 02/13/19 00:36 02/12/19 04:33 Labs: Laboratory Last Values WBC 12.6 K/mm3 (4.5-11.0) H 02/13/19 00:36 RBC 2.53 M/mm3 (3.65-5.03) L 02/13/19 00:36 Hgb 7.6 gm/dl (11.8-15.2) L 02/13/19 00:36 Hct 23.9 % (35.5-45.6) L 02/13/19 00:36 MCV 95 fl (84-94) H 02/13/19 00:36 MCH 30 pg (28-32) 02/13/19 00:36 MCHC 32 % (32-34) 02/13/19 00:36 RDW 20.8 % (13.2-15.2) H 02/13/19 00:36 Plt Count 377 K/mm3 (140-440) 02/13/19 00:36 Lymph % (Auto) 9.8 % (13.4-35.0) L 02/13/19 00:36 [place] % (Auto) 11.0 % (0.0-7.3) H 02/13/19 00:36 Eos % (Auto) 0.6 % (0.0-4.3) 02/13/19 00:36 Baso % (Auto) 1.2 % (0.0-1.8) 02/13/19 00:36 Lymph # 1.2 K/mm3 (1.2-5.4) 02/13/19 00:36 [place] # 1.4 K/mm3 (0.0-0.8) H 02/13/19 00:36 Eos # 0.1 K/mm3 (0.0-0.4) 02/13/19 00:36 Baso # 0.2 K/mm3 (0.0-0.1) H 02/13/19 00:36 Add Manual Diff Complete 01/27/19 10:23 Total Counted 100 01/27/19 10:23 Seg Neutrophils % 77.4 % (40.0-70.0) H 02/13/19 00:36 Seg Neuts % (Manual) 90.0 % (40.0-70.0) H 01/27/19 10:23 Band Neutrophils % 0 % 01/27/19 10:23 Lymphocytes % (Manual) 7.0 % (13.4-35.0) L 01/27/19 10:23 Reactive Lymphs % (Man) 0 % 01/27/19 10:23 Monocytes % (Manual) 3.0 % (0.0-7.3) 01/27/19 10:23 Eosinophils % (Manual) 0 % (0.0-4.3) 01/27/19 10:23 Metamyelocytes % 0 % 01/27/19 10:23 Myelocytes % 0 % 01/27/19 10:23 Promyelocytes % 0 % 01/27/19 10:23 Blast Cells % 0 % 01/27/19 10:23 Nucleated RBC % Not Reportable 01/27/19 10:23 Seg Neutrophils # 9.8 K/mm3 (1.8-7.7) H 02/13/19 00:36 Seg Neutrophils # Man 10.7 K/mm3 (1.8-7.7) H 01/27/19 10:23 Band Neutrophils # 0.0 K/mm3 01/27/19 10:23 Lymphocytes # (Manual) 0.8 K/mm3 (1.2-5.4) L 01/27/19 10:23 Abs React Lymphs (Man) 0.0 K/mm3 01/27/19 10:23 Monocytes # (Manual) 0.4 K/mm3 (0.0-0.8) 01/27/19 10:23 Eosinophils # (Manual) 0.0 K/mm3 (0.0-0.4) 01/27/19 10:23 Basophils # (Manual) 0.0 K/mm3 (0.0-0.1) 01/27/19 10:23 Metamyelocytes # 0.0 K/mm3 01/27/19 10:23 Myelocytes # 0.0 K/mm3 01/27/19 10:23 Promyelocytes # 0.0 K/mm3 01/27/19 10:23 Blast Cells # 0.0 K/mm3 01/27/19 10:23 WBC Morphology Not Reportable 01/27/19 10:23 Hypersegmented Neuts Not Reportable 01/27/19 10:23 Hyposegmented Neuts Not Reportable 01/27/19 10:23 Hypogranular Neuts Not Reportable 01/27/19 10:23 Smudge Cells Not Reportable 01/27/19 10:23 Toxic Granulation Not Reportable 01/27/19 10:23 Toxic Vacuolation Not Reportable 01/27/19 10:23 Dohle Bodies Not Reportable 01/27/19 10:23 Pelger-Huet Anomaly Not Reportable 01/27/19 10:23 Eugenio Rods Not Reportable 01/27/19 10:23 Platelet Estimate Consistent w auto 01/27/19 10:23 Clumped Platelets Not Reportable 01/27/19 10:23 Plt Clumps, EDTA Not Reportable 01/27/19 10:23 Large Platelets Not Reportable 01/27/19 10:23 Giant Platelets Rare 01/27/19 10:23 Platelet Satelliting Not Reportable 01/27/19 10:23 Plt Morphology Comment Not Reportable 01/27/19 10:23 RBC Morphology Not Reportable 01/27/19 10:23 Dimorphic RBCs Not Reportable 01/27/19 10:23 Polychromasia Not Reportable 01/27/19 10:23 Hypochromasia Not Reportable 01/27/19 10:23 Poikilocytosis Few 01/27/19 10:23 Anisocytosis Few 01/27/19 10:23 Microcytosis Not Reportable 01/27/19 10:23 Macrocytosis Not Reportable 01/27/19 10:23 Spherocytes Not Reportable 01/27/19 10:23 Pappenheimer Bodies Not Reportable 01/27/19 10:23 Sickle Cells Not Reportable 01/27/19 10:23 Target Cells Not Reportable 01/27/19 10:23 Tear Drop Cells Not Reportable 01/27/19 10:23 Ovalocytes Not Reportable 01/27/19 10:23 Helmet Cells Not Reportable 01/27/19 10:23 [place] Bodies Not Reportable 01/27/19 10:23 [place] Rings Not Reportable 01/27/19 10:23 [place] Cells Not Reportable 01/27/19 10:23 Bite Cells Not Reportable 01/27/19 10:23 Crenated Cell Not Reportable 01/27/19 10:23 Elliptocytes Rare 01/27/19 10:23 Acanthocytes (Spur) Not Reportable 01/27/19 10:23 Rouleaux Not Reportable 01/27/19 10:23 Hemoglobin C Crystals Not Reportable 01/27/19 10:23 Schistocytes Not Reportable 01/27/19 10:23 Malaria parasites Not Reportable 01/27/19 10:23 Derick Bodies Not Reportable 01/27/19 10:23 Hem Pathologist Commnt No 01/27/19 10:23 Sodium 134 mmol/L (137-145) L 02/12/19 04:33 Potassium 4.3 mmol/L (3.6-5.0) 02/12/19 04:33 Chloride 96.0 mmol/L (98-107) L 02/12/19 04:33 Carbon Dioxide 30 mmol/L (22-30) D 02/12/19 04:33 Anion Gap 12 mmol/L 02/12/19 04:33 BUN 11 mg/dL (9-20) 02/12/19 04:33 Creatinine 0.4 mg/dL (0.8-1.5) L 02/12/19 04:33 Estimated GFR > 60 ml/min 02/12/19 04:33 BUN/Creatinine Ratio 28 % 02/12/19 04:33 Glucose 79 mg/dL (75-100) 02/12/19 04:33 Calcium 7.6 mg/dL (8.4-10.2) L 02/12/19 04:33 Magnesium 1.80 mg/dL (1.7-2.3) 01/29/19 05:13 Iron 7 ug/dL (49-181) L 01/28/19 07:06 TIBC 92 mcg/dL (250-450) L 01/28/19 07:06 % Saturation 7.61 % 01/28/19 07:06 Transferrin 89 mg/dl (180-329) L 01/28/19 07:06 Total Bilirubin 0.40 mg/dL (0.1-1.2) 01/27/19 10:19 AST 23 units/L (5-40) 01/27/19 10:19 ALT 20 units/L (7-56) 01/27/19 10:19 Alkaline Phosphatase 111 units/L (35-129) 01/27/19 10:19 Troponin T < 0.010 ng/mL (0.00-0.029) 01/27/19 10:19 C-Reactive Protein 4.20 mg/dL (0.00-1.30) H 02/13/19 00:36 Total Protein 5.9 g/dL (6.3-8.2) L 01/27/19 10:19 Albumin 1.9 g/dL (3.9-5) L 01/27/19 10:19 Albumin/Globulin Ratio 0.5 % 01/27/19 10:19 Vitamin B12 1887 pg/mL (211-911) H 01/28/19 07:06 RBC Folic Acid >1000 ng/mL (>280) 01/28/19 07:06 TSH 19.170 mlU/mL (0.270-4.200) H 02/11/19 16:29 Free T4 0.88 ng/dL (0.76-1.46) 02/12/19 09:16 Thyroxine (T4) 4.3 ug/dL (4.0-12.0) 02/03/19 13:46 Active Medications - Current Medications Current Medications: Generic Name Dose Route Start Last Admin Trade Name Freq PRN Reason Stop Dose Admin Aspirin 81 mg 01/28/19 10:00 02/15/19 10:16 Halfprin Ec PO 81 mg QDAY JONI Administration Cyclobenzaprine HCl 10 mg 01/30/19 08:30 02/14/19 22:09 Flexeril PO 10 mg Q8H PRN Administration Muscle Spasm Diltiazem HCl 180 mg 02/15/19 12:00 Cardizem Cd PO QDAY JONI Ferrous Sulfate 325 mg 01/28/19 10:00 02/15/19 10:16 Feosol PO 325 mg DAILY JONI Administration Hydromorphone HCl 0.5 mg 02/07/19 12:37 02/10/19 20:40 Dilaudid IV 0.5 mg DAILY PRN Administration Wound Care Sodium Chloride 1,000 mls @ 100 mls/hr 02/11/19 14:00 02/14/19 00:58 Nacl 0.9% 1000 Ml IV 100 mls/hr DIRECT JONI Administration Levothyroxine Sodium 125 mcg 02/13/19 06:00 02/15/19 05:33 Synthroid PO 125 mcg DAILY@0600 JONI Administration Metoprolol Tartrate 2.5 mg 01/29/19 12:51 Lopressor IV Q6HR PRN HR>130 Metoprolol Tartrate 25 mg 02/15/19 14:00 Lopressor PO Q8HR JONI Nicotine 21 mg 02/12/19 10:00 02/15/19 10:17 Habitrol TD 21 mg Q24HR JONI Administration Oxycodone/Acetaminophen 1 tab 02/12/19 22:30 02/15/19 11:08 Percocet 5/325 PO 1 tab Q6H PRN Administration Pain, Moderate (4-6) Pantoprazole Sodium 40 mg 01/28/19 10:00 02/15/19 10:16 Protonix PO 40 mg QDAY JONI Administration Tramadol HCl 50 mg 02/05/19 15:44 02/14/19 21:52 Ultram PO 50 mg Q6H PRN Administration Pain, Moderate (4-6) Nutrition/Malnutrition Assess - Dietary Evaluation Nutrition/Malnutrition Findings: Nutrition Notes Start: 01/28/19 15:47 Freq: Status: Active Protocol: Document 02/10/19 10:28 CP (Rec: 02/10/19 10:32 CP [email or web address]) Co-Sign 02/10/19 10:28 LP Nutrition Notes Initial or Follow up Brief Note Subjective/Other Information Pt is eating 100% of his meals and has good appetite. Nutrition Intervention Revisit per MD consult or patient Sign Off request:
[2019-02-15] MEDS: CARDIZEM CD PO SCH (18:20)
[2019-02-16] MEDS: PERCOCET 5/325 PO PRN ×4 (00:20→23:45)
[2019-02-16] MEDS: SYNTHROID PO SCH (06:30)
[2019-02-16] MEDS: LOPRESSOR PO SCH ×3 (06:31→21:22)
--- NOTE | 2019-02-16 08:30 | Progress Note ---
Assessment and Plan Generalized pain -chief complaint Atrial fibrillation, paroxysmal on amiodarone, diltiazem and metoprolol patient is not a candidate for oral anticoagulation s/t severe anemia and recent GI bleed. TSH 19.1 Unilateral LE edema LE venous doppler reports no evidence of DVT Popliteal cyst s/p I&D -wound vac in place Recent GI bleed recent EGD workup revealed gastric ulcer Leukocytosis Chronic Anemia Hypothyroidism Hyponatremia Elevated liver transaminase Chronic lung disease Tobacco abuse Ascending thoracic aorta aneurysm measuring 5cm An echocardiogram 12/2018 reveal moderate aortic valve calcification with moderate to severe aortic stenosis. Left ventricular systolic function is normal, EF 60%. Small fixed apical wall defect, no reversible ischemia on MPI done 01/2018. Recommend: Continue diltiazem, metoprolol and amiodarone for suppression of paroxysmal atrial fibrillation. Subjective Date of service: 02/16/19 Principal diagnosis: Abscess Interval history: Patient is resting in bed comfortably. No distress noted. Sinus rhythm on telemetry. Objective Vital Signs Temp Pulse Resp BP Pulse Ox 02/16/19 06:31 77 103/52 02/16/19 02:32 97.6 F 71 20 115/60 90 02/15/19 22:14 72 109/61 02/15/19 19:47 97.8 F 72 20 109/61 94 02/15/19 13:59 97.8 F 65 18 107/54 94 02/15/19 10:16 111/54 02/15/19 09:50 97 - Physical Examination General: No Apparent Distress HEENT: Positive: PERRL Cardiac: Positive: Reg Rate and Rhythm Neuro: Positive: Grossly Intact, Weakness
[2019-02-16] MEDS: ULTRAM PO PRN (09:08)
[2019-02-16] MEDS: HABITROL TD SCH (09:12)
[2019-02-16] MEDS: CARDIZEM CD PO SCH (09:13)
[2019-02-16] MEDS: HALFPRIN EC PO SCH (09:13)
[2019-02-16] MEDS: PROTONIX PO SCH (09:13)
[2019-02-16] MEDS: FEOSOL PO SCH (09:13)
[2019-02-16] MEDS ORDERED: CARDIZEM CD PO SCH (10:00)
--- NOTE | 2019-02-16 11:18 | Progress Note ---
Assessment and Plan Assessment and plan: Patient is a 78 yo man with a history of Afib, hypertension, asthma, hypothyroid and recent GIB with Gastric ulcer s/p endoclip repair who presented to [facility] ED on 01/27/19 with left leg pains and palpitations. * EGD #1 on 01/10/19 Pre-op diagnosis: Melena, Post-op diagnosis: other (Gastric Ulcer) Findings: 1. Normal duodenum (some dried blood) 2. 1cm flat ulcer on greater curve/body, with a moderate visible vessel present - Endoclip x 1 - Cold bx of antrum to r/o H pylori 3. Clots/fluid in fundus that could not be suctioned, but no fresh blood 4. No esophageal varices * EGD #2 on 01/13/19 Pre-op diagnosis: Anemia Post-op diagnosis: other (Gastric Ulcers) Findings: 1. No blood/clots present 2. Duodenum normal 3. Gastric ulcer with clip in body without stigmata of bleeding 4. Two small antral erosions not seen previously with pigment base 5. 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 Peter, get free t4, Amiodarone probably causing this, can increase to 125mcg if free t4 low. Disposition: Continue inpatient care, d/c to SNF once Insurance pre- authorization done==>[facility] has accepted and insurance auth is in but the wound vac isn't here, so he will be here overall the weekend waiting on the wound vac History Interval history: Patient was seen and examined. Follow-up on current diagnosis of afib with rvr and left leg pains, neck pains better. Overnight uneventful. Patient denies any chest pain, shortness breath, nausea/vomiting or severe headaches. Imaging, nursing note, chart, labs and old chart reviewed. Discussed with patient. Hospitalist Physical - Physical exam Narrative exam: Heart RATE is not 136, it is 76 and sinus Gen: thin frail, chronic disable with severe deconditioning, NAD, Awake, Orientated HEENT: NCAT, EOMI, PERRL, OP Clear Neck: neck OA, no adenopathy, no thyromegaly, no JVD CVS/Heart: RRR, normal S1S2, pulses present bilaterally Chest/Lungs: CTA B, Symmetrical chest expansion, good air entry bilaterally GI/Abdomen: soft, NTND, good bowel sounds, no guarding or rebound /Bladder: no suprapubic tenderness, no CVA or paraspinal tenderness Extermity/Skin: left leg with surgical dsg intact MSK: FROM x 4 Neuro: CN 2-12 grossly intact, no new focal deficits Psych: calm - Constitutional Vitals: Temp Pulse Resp BP Pulse Ox 98.1 F 71 18 120/62 92 02/16/19 07:31 02/16/19 09:13 02/16/19 07:31 02/16/19 09:13 02/16/19 09:04 General appearance: Present: no acute distress Results - Labs CBC & Chem 7: 02/13/19 00:36 02/12/19 04:33 Labs: Laboratory Last Values WBC 12.6 K/mm3 (4.5-11.0) H 02/13/19 00:36 RBC 2.53 M/mm3 (3.65-5.03) L 02/13/19 00:36 Hgb 7.6 gm/dl (11.8-15.2) L 02/13/19 00:36 Hct 23.9 % (35.5-45.6) L 02/13/19 00:36 MCV 95 fl (84-94) H 02/13/19 00:36 MCH 30 pg (28-32) 02/13/19 00:36 MCHC 32 % (32-34) 02/13/19 00:36 RDW 20.8 % (13.2-15.2) H 02/13/19 00:36 Plt Count 377 K/mm3 (140-440) 02/13/19 00:36 Lymph % (Auto) 9.8 % (13.4-35.0) L 02/13/19 00:36 [place] % (Auto) 11.0 % (0.0-7.3) H 02/13/19 00:36 Eos % (Auto) 0.6 % (0.0-4.3) 02/13/19 00:36 Baso % (Auto) 1.2 % (0.0-1.8) 02/13/19 00:36 Lymph # 1.2 K/mm3 (1.2-5.4) 02/13/19 00:36 [place] # 1.4 K/mm3 (0.0-0.8) H 02/13/19 00:36 Eos # 0.1 K/mm3 (0.0-0.4) 02/13/19 00:36 Baso # 0.2 K/mm3 (0.0-0.1) H 02/13/19 00:36 Add Manual Diff Complete 01/27/19 10:23 Total Counted 100 01/27/19 10:23 Seg Neutrophils % 77.4 % (40.0-70.0) H 02/13/19 00:36 Seg Neuts % (Manual) 90.0 % (40.0-70.0) H 01/27/19 10:23 Band Neutrophils % 0 % 01/27/19 10:23 Lymphocytes % (Manual) 7.0 % (13.4-35.0) L 01/27/19 10:23 Reactive Lymphs % (Man) 0 % 01/27/19 10:23 Monocytes % (Manual) 3.0 % (0.0-7.3) 01/27/19 10:23 Eosinophils % (Manual) 0 % (0.0-4.3) 01/27/19 10:23 Metamyelocytes % 0 % 01/27/19 10:23 Myelocytes % 0 % 01/27/19 10:23 Promyelocytes % 0 % 01/27/19 10:23 Blast Cells % 0 % 01/27/19 10:23 Nucleated RBC % Not Reportable 01/27/19 10:23 Seg Neutrophils # 9.8 K/mm3 (1.8-7.7) H 02/13/19 00:36 Seg Neutrophils # Man 10.7 K/mm3 (1.8-7.7) H 01/27/19 10:23 Band Neutrophils # 0.0 K/mm3 01/27/19 10:23 Lymphocytes # (Manual) 0.8 K/mm3 (1.2-5.4) L 01/27/19 10:23 Abs React Lymphs (Man) 0.0 K/mm3 01/27/19 10:23 Monocytes # (Manual) 0.4 K/mm3 (0.0-0.8) 01/27/19 10:23 Eosinophils # (Manual) 0.0 K/mm3 (0.0-0.4) 01/27/19 10:23 Basophils # (Manual) 0.0 K/mm3 (0.0-0.1) 01/27/19 10:23 Metamyelocytes # 0.0 K/mm3 01/27/19 10:23 Myelocytes # 0.0 K/mm3 01/27/19 10:23 Promyelocytes # 0.0 K/mm3 01/27/19 10:23 Blast Cells # 0.0 K/mm3 01/27/19 10:23 WBC Morphology Not Reportable 01/27/19 10:23 Hypersegmented Neuts Not Reportable 01/27/19 10:23 Hyposegmented Neuts Not Reportable 01/27/19 10:23 Hypogranular Neuts Not Reportable 01/27/19 10:23 Smudge Cells Not Reportable 01/27/19 10:23 Toxic Granulation Not Reportable 01/27/19 10:23 Toxic Vacuolation Not Reportable 01/27/19 10:23 Dohle Bodies Not Reportable 01/27/19 10:23 Pelger-Huet Anomaly Not Reportable 01/27/19 10:23 Eugenio Rods Not Reportable 01/27/19 10:23 Platelet Estimate Consistent w auto 01/27/19 10:23 Clumped Platelets Not Reportable 01/27/19 10:23 Plt Clumps, EDTA Not Reportable 01/27/19 10:23 Large Platelets Not Reportable 01/27/19 10:23 Giant Platelets Rare 01/27/19 10:23 Platelet Satelliting Not Reportable 01/27/19 10:23 Plt Morphology Comment Not Reportable 01/27/19 10:23 RBC Morphology Not Reportable 01/27/19 10:23 Dimorphic RBCs Not Reportable 01/27/19 10:23 Polychromasia Not Reportable 01/27/19 10:23 Hypochromasia Not Reportable 01/27/19 10:23 Poikilocytosis Few 01/27/19 10:23 Anisocytosis Few 01/27/19 10:23 Microcytosis Not Reportable 01/27/19 10:23 Macrocytosis Not Reportable 01/27/19 10:23 Spherocytes Not Reportable 01/27/19 10:23 Pappenheimer Bodies Not Reportable 01/27/19 10:23 Sickle Cells Not Reportable 01/27/19 10:23 Target Cells Not Reportable 01/27/19 10:23 Tear Drop Cells Not Reportable 01/27/19 10:23 Ovalocytes Not Reportable 01/27/19 10:23 Helmet Cells Not Reportable 01/27/19 10:23 [place] Bodies Not Reportable 01/27/19 10:23 [place] Rings Not Reportable 01/27/19 10:23 [place] Cells Not Reportable 01/27/19 10:23 Bite Cells Not Reportable 01/27/19 10:23 Crenated Cell Not Reportable 01/27/19 10:23 Elliptocytes Rare 01/27/19 10:23 Acanthocytes (Spur) Not Reportable 01/27/19 10:23 Rouleaux Not Reportable 01/27/19 10:23 Hemoglobin C Crystals Not Reportable 01/27/19 10:23 Schistocytes Not Reportable 01/27/19 10:23 Malaria parasites Not Reportable 01/27/19 10:23 Derick Bodies Not Reportable 01/27/19 10:23 Hem Pathologist Commnt No 01/27/19 10:23 Sodium 134 mmol/L (137-145) L 02/12/19 04:33 Potassium 4.3 mmol/L (3.6-5.0) 02/12/19 04:33 Chloride 96.0 mmol/L (98-107) L 02/12/19 04:33 Carbon Dioxide 30 mmol/L (22-30) D 02/12/19 04:33 Anion Gap 12 mmol/L 02/12/19 04:33 BUN 11 mg/dL (9-20) 02/12/19 04:33 Creatinine 0.4 mg/dL (0.8-1.5) L 02/12/19 04:33 Estimated GFR > 60 ml/min 02/12/19 04:33 BUN/Creatinine Ratio 28 % 02/12/19 04:33 Glucose 79 mg/dL (75-100) 02/12/19 04:33 Calcium 7.6 mg/dL (8.4-10.2) L 02/12/19 04:33 Magnesium 1.80 mg/dL (1.7-2.3) 01/29/19 05:13 Iron 7 ug/dL (49-181) L 01/28/19 07:06 TIBC 92 mcg/dL (250-450) L 01/28/19 07:06 % Saturation 7.61 % 01/28/19 07:06 Transferrin 89 mg/dl (180-329) L 01/28/19 07:06 Total Bilirubin 0.40 mg/dL (0.1-1.2) 01/27/19 10:19 AST 23 units/L (5-40) 01/27/19 10:19 ALT 20 units/L (7-56) 01/27/19 10:19 Alkaline Phosphatase 111 units/L (35-129) 01/27/19 10:19 Troponin T < 0.010 ng/mL (0.00-0.029) 01/27/19 10:19 C-Reactive Protein 4.20 mg/dL (0.00-1.30) H 02/13/19 00:36 Total Protein 5.9 g/dL (6.3-8.2) L 01/27/19 10:19 Albumin 1.9 g/dL (3.9-5) L 01/27/19 10:19 Albumin/Globulin Ratio 0.5 % 01/27/19 10:19 Vitamin B12 1887 pg/mL (211-911) H 01/28/19 07:06 RBC Folic Acid >1000 ng/mL (>280) 01/28/19 07:06 TSH 19.170 mlU/mL (0.270-4.200) H 02/11/19 16:29 Free T4 0.88 ng/dL (0.76-1.46) 02/12/19 09:16 Thyroxine (T4) 4.3 ug/dL (4.0-12.0) 02/03/19 13:46 Active Medications - Current Medications Current Medications: Generic Name Dose Route Start Last Admin Trade Name Freq PRN Reason Stop Dose Admin Aspirin 81 mg 01/28/19 10:00 02/16/19 09:13 Halfprin Ec PO 81 mg QDAY JONI Administration Cyclobenzaprine HCl 10 mg 01/30/19 08:30 02/14/19 22:09 Flexeril PO 10 mg Q8H PRN Administration Muscle Spasm Diltiazem HCl 180 mg 02/15/19 12:00 02/16/19 09:13 Cardizem Cd PO 180 mg QDAY JONI Administration Ferrous Sulfate 325 mg 01/28/19 10:00 02/16/19 09:13 Feosol PO 325 mg DAILY JONI Administration Hydromorphone HCl 0.5 mg 02/07/19 12:37 02/10/19 20:40 Dilaudid IV 0.5 mg DAILY PRN Administration Wound Care Sodium Chloride 1,000 mls @ 100 mls/hr 02/11/19 14:00 02/14/19 00:58 Nacl 0.9% 1000 Ml IV 100 mls/hr DIRECT JONI Administration Levothyroxine Sodium 125 mcg 02/13/19 06:00 02/16/19 06:30 Synthroid PO 125 mcg DAILY@0600 JONI Administration Metoprolol Tartrate 2.5 mg 01/29/19 12:51 Lopressor IV Q6HR PRN HR>130 Metoprolol Tartrate 25 mg 02/15/19 14:00 02/16/19 06:31 Lopressor PO Not Given Q8HR JONI Nicotine 21 mg 02/12/19 10:00 02/16/19 09:12 Habitrol TD 21 mg Q24HR JONI Administration Oxycodone/Acetaminophen 1 tab 02/12/19 22:30 02/16/19 00:20 Percocet 5/325 PO 1 tab Q6H PRN Administration Pain, Moderate (4-6) Pantoprazole Sodium 40 mg 01/28/19 10:00 02/16/19 09:13 Protonix PO 40 mg QDAY JONI Administration Tramadol HCl 50 mg 02/05/19 15:44 02/16/19 09:08 Ultram PO 50 mg Q6H PRN Administration Pain, Moderate (4-6) Nutrition/Malnutrition Assess - Dietary Evaluation Nutrition/Malnutrition Findings: Nutrition Notes Start: 01/28/19 15:47 Freq: Status: Active Protocol: Document 02/10/19 10:28 CP (Rec: 02/10/19 10:32 CP [email or web address]) Co-Sign 02/10/19 10:28 LP Nutrition Notes Initial or Follow up Brief Note Subjective/Other Information Pt is eating 100% of his meals and has good appetite. Nutrition Intervention Revisit per MD consult or patient Sign Off request:
[2019-02-17] MEDS: SYNTHROID PO SCH (05:26)
[2019-02-17] MEDS: LOPRESSOR PO SCH ×3 (05:26→21:44)
[2019-02-17] MEDS: PERCOCET 5/325 PO PRN ×3 (05:27→19:35)
--- NOTE | 2019-02-17 08:25 | Progress Note ---
Assessment and Plan Generalized pain -chief complaint Atrial fibrillation, paroxysmal on amiodarone, diltiazem and metoprolol patient is not a candidate for oral anticoagulation s/t severe anemia and recent GI bleed. TSH 19.1 Unilateral LE edema LE venous doppler reports no evidence of DVT Popliteal cyst s/p I&D -wound vac in place Recent GI bleed recent EGD workup revealed gastric ulcer Leukocytosis Chronic Anemia Hypothyroidism Hyponatremia Elevated liver transaminase Chronic lung disease Tobacco abuse Ascending thoracic aorta aneurysm measuring 5cm An echocardiogram 12/2018 reveal moderate aortic valve calcification with moderate to severe aortic stenosis. Left ventricular systolic function is normal, EF 60%. Small fixed apical wall defect, no reversible ischemia on MPI done 01/2018. Recommend: Continue diltiazem, metoprolol and amiodarone for suppression of paroxysmal atrial fibrillation. Subjective Date of service: 02/17/19 Principal diagnosis: Abscess Interval history: Awaits placement. Sinus rhythm on telemetry. Objective Vital Signs Temp Pulse Pulse Pulse Resp BP Pulse Ox 02/17/19 07:42 59 L 18 93 02/17/19 07:14 97.9 F 59 L 18 106/56 93 02/17/19 02:16 95 02/17/19 02:14 66 02/17/19 02:09 98.6 F 20 114/56 02/16/19 21:22 80 108/52 02/16/19 20:43 98 02/16/19 20:12 74 95 02/16/19 20:10 99.0 F 20 108/52 02/16/19 14:12 74 108/52 02/16/19 13:33 97.9 F 74 18 108/52 85 02/16/19 10:00 92 H 92 H 18 92 02/16/19 09:13 71 120/62 02/16/19 09:04 92 - Physical Examination General: No Apparent Distress HEENT: Positive: PERRL Neck: Positive: trachea midline Cardiac: Positive: Reg Rate and Rhythm Neuro: Positive: Weakness
[2019-02-17] MEDS: FEOSOL PO SCH (09:25)
[2019-02-17] MEDS: HALFPRIN EC PO SCH (09:25)
[2019-02-17] MEDS: PROTONIX PO SCH (09:25)
[2019-02-17] MEDS: CARDIZEM CD PO SCH (09:26)
[2019-02-17] MEDS: HABITROL TD SCH (09:26)
--- NOTE | 2019-02-17 12:25 | Progress Note ---
Assessment and Plan Assessment and plan: Patient is a 78 yo man with a history of Afib, hypertension, asthma, hypothyroid and recent GIB with Gastric ulcer s/p endoclip repair who presented to [facility] ED on 01/27/19 with left leg pains and palpitations. * EGD #1 on 01/10/19 Pre-op diagnosis: Melena, Post-op diagnosis: other (Gastric Ulcer) Findings: 1. Normal duodenum (some dried blood) 2. 1cm flat ulcer on greater curve/body, with a moderate visible vessel present - Endoclip x 1 - Cold bx of antrum to r/o H pylori 3. Clots/fluid in fundus that could not be suctioned, but no fresh blood 4. No esophageal varices * EGD #2 on 01/13/19 Pre-op diagnosis: Anemia Post-op diagnosis: other (Gastric Ulcers) Findings: 1. No blood/clots present 2. Duodenum normal 3. Gastric ulcer with clip in body without stigmata of bleeding 4. Two small antral erosions not seen previously with pigment base 5. O/W normal stomach and esophagus -Atrial fibrillation with RVR: rate control meds per cardiology -Hypotension: resolved after IVF -Left leg pain with ruptured Ceballos cyst s/p incisional drainage 02/09/19 and now excisional debridement on 02/11/19, at bedside: wound vac to left calf -PAD with 75% DIMPLE: d/w Dr. Rolon, unlikely source of leg pains -HTN (hypertension) low salt diet -Neck pains, xray showing possible spasms: added flexeril prn -Hyperkalemia, mild: monitor closely -Hypothyroidism, uncontrolled: adjusted synthroid -GERD (gastroesophageal reflux disease) and PUD On PPI's -Anemia, acute on chronic GI bleed recently due to PUD, no prison a/c until a repeat EGD in future confirms that PUD have healed -DVT prophylaxis: Off Lovenox and GI prophylaxis -Severe malnutrition, poa: [employer] [place] [employer] full code Disposition; patient is pending SNF placement, tentative discharge tomorrow History Interval history: LLE pain has improved Review of systems Constitutional: No fevers, no malaise, no joint pains CVS: No chest pain, c/o orthopnea, and dyspnea on exertion, improved GI: No abdominal pain, no diarrhea, no vomiting, no constipation Respiratory: no wheezing, no coughing Hospitalist Physical - Physical exam Narrative exam: General.: Appears well, no distress, nontoxic HEENT: Moist mucous membranes, extraocular muscles intact, no lymphadenopathy Neck: supple Cardiac: S1-S2 heard Lungs: bibasilar crackles Abdomen: soft , nontender, nondistended, bowel sounds positive Extremities: no edema clubbing or cyanosis Skin: LLE wound , dressing not removed, no surrounding erythema or tenderness Neurologic: no gross focal deficits Psych: calm, and cooperative - Constitutional Vitals: Temp Pulse Resp BP Pulse Ox 97.9 F 59 L 18 123/59 93 02/17/19 07:14 02/17/19 10:00 02/17/19 12:12 02/17/19 09:26 02/17/19 10:00 General appearance: Present: no acute distress Results - Labs CBC & Chem 7: 02/13/19 00:36 02/12/19 04:33 Labs: Laboratory Last Values WBC 12.6 K/mm3 (4.5-11.0) H 02/13/19 00:36 RBC 2.53 M/mm3 (3.65-5.03) L 02/13/19 00:36 Hgb 7.6 gm/dl (11.8-15.2) L 02/13/19 00:36 Hct 23.9 % (35.5-45.6) L 02/13/19 00:36 MCV 95 fl (84-94) H 02/13/19 00:36 MCH 30 pg (28-32) 02/13/19 00:36 MCHC 32 % (32-34) 02/13/19 00:36 RDW 20.8 % (13.2-15.2) H 02/13/19 00:36 Plt Count 377 K/mm3 (140-440) 02/13/19 00:36 Lymph % (Auto) 9.8 % (13.4-35.0) L 02/13/19 00:36 [place] % (Auto) 11.0 % (0.0-7.3) H 02/13/19 00:36 Eos % (Auto) 0.6 % (0.0-4.3) 02/13/19 00:36 Baso % (Auto) 1.2 % (0.0-1.8) 02/13/19 00:36 Lymph # 1.2 K/mm3 (1.2-5.4) 02/13/19 00:36 [place] # 1.4 K/mm3 (0.0-0.8) H 02/13/19 00:36 Eos # 0.1 K/mm3 (0.0-0.4) 02/13/19 00:36 Baso # 0.2 K/mm3 (0.0-0.1) H 02/13/19 00:36 Add Manual Diff Complete 01/27/19 10:23 Total Counted 100 01/27/19 10:23 Seg Neutrophils % 77.4 % (40.0-70.0) H 02/13/19 00:36 Seg Neuts % (Manual) 90.0 % (40.0-70.0) H 01/27/19 10:23 Band Neutrophils % 0 % 01/27/19 10:23 Lymphocytes % (Manual) 7.0 % (13.4-35.0) L 01/27/19 10:23 Reactive Lymphs % (Man) 0 % 01/27/19 10:23 Monocytes % (Manual) 3.0 % (0.0-7.3) 01/27/19 10:23 Eosinophils % (Manual) 0 % (0.0-4.3) 01/27/19 10:23 Metamyelocytes % 0 % 01/27/19 10:23 Myelocytes % 0 % 01/27/19 10:23 Promyelocytes % 0 % 01/27/19 10:23 Blast Cells % 0 % 01/27/19 10:23 Nucleated RBC % Not Reportable 01/27/19 10:23 Seg Neutrophils # 9.8 K/mm3 (1.8-7.7) H 02/13/19 00:36 Seg Neutrophils # Man 10.7 K/mm3 (1.8-7.7) H 01/27/19 10:23 Band Neutrophils # 0.0 K/mm3 01/27/19 10:23 Lymphocytes # (Manual) 0.8 K/mm3 (1.2-5.4) L 01/27/19 10:23 Abs React Lymphs (Man) 0.0 K/mm3 01/27/19 10:23 Monocytes # (Manual) 0.4 K/mm3 (0.0-0.8) 01/27/19 10:23 Eosinophils # (Manual) 0.0 K/mm3 (0.0-0.4) 01/27/19 10:23 Basophils # (Manual) 0.0 K/mm3 (0.0-0.1) 01/27/19 10:23 Metamyelocytes # 0.0 K/mm3 01/27/19 10:23 Myelocytes # 0.0 K/mm3 01/27/19 10:23 Promyelocytes # 0.0 K/mm3 01/27/19 10:23 Blast Cells # 0.0 K/mm3 01/27/19 10:23 WBC Morphology Not Reportable 01/27/19 10:23 Hypersegmented Neuts Not Reportable 01/27/19 10:23 Hyposegmented Neuts Not Reportable 01/27/19 10:23 Hypogranular Neuts Not Reportable 01/27/19 10:23 Smudge Cells Not Reportable 01/27/19 10:23 Toxic Granulation Not Reportable 01/27/19 10:23 Toxic Vacuolation Not Reportable 01/27/19 10:23 Dohle Bodies Not Reportable 01/27/19 10:23 Pelger-Huet Anomaly Not Reportable 01/27/19 10:23 Eugenio Rods Not Reportable 01/27/19 10:23 Platelet Estimate Consistent w auto 01/27/19 10:23 Clumped Platelets Not Reportable 01/27/19 10:23 Plt Clumps, EDTA Not Reportable 01/27/19 10:23 Large Platelets Not Reportable 01/27/19 10:23 Giant Platelets Rare 01/27/19 10:23 Platelet Satelliting Not Reportable 01/27/19 10:23 Plt Morphology Comment Not Reportable 01/27/19 10:23 RBC Morphology Not Reportable 01/27/19 10:23 Dimorphic RBCs Not Reportable 01/27/19 10:23 Polychromasia Not Reportable 01/27/19 10:23 Hypochromasia Not Reportable 01/27/19 10:23 Poikilocytosis Few 01/27/19 10:23 Anisocytosis Few 01/27/19 10:23 Microcytosis Not Reportable 01/27/19 10:23 Macrocytosis Not Reportable 01/27/19 10:23 Spherocytes Not Reportable 01/27/19 10:23 Pappenheimer Bodies Not Reportable 01/27/19 10:23 Sickle Cells Not Reportable 01/27/19 10:23 Target Cells Not Reportable 01/27/19 10:23 Tear Drop Cells Not Reportable 01/27/19 10:23 Ovalocytes Not Reportable 01/27/19 10:23 Helmet Cells Not Reportable 01/27/19 10:23 [place] Bodies Not Reportable 01/27/19 10:23 [place] Rings Not Reportable 01/27/19 10:23 [place] Cells Not Reportable 01/27/19 10:23 Bite Cells Not Reportable 01/27/19 10:23 Crenated Cell Not Reportable 01/27/19 10:23 Elliptocytes Rare 01/27/19 10:23 Acanthocytes (Spur) Not Reportable 01/27/19 10:23 Rouleaux Not Reportable 01/27/19 10:23 Hemoglobin C Crystals Not Reportable 01/27/19 10:23 Schistocytes Not Reportable 01/27/19 10:23 Malaria parasites Not Reportable 01/27/19 10:23 Derick Bodies Not Reportable 01/27/19 10:23 Hem Pathologist Commnt No 01/27/19 10:23 Sodium 134 mmol/L (137-145) L 02/12/19 04:33 Potassium 4.3 mmol/L (3.6-5.0) 02/12/19 04:33 Chloride 96.0 mmol/L (98-107) L 02/12/19 04:33 Carbon Dioxide 30 mmol/L (22-30) D 02/12/19 04:33 Anion Gap 12 mmol/L 02/12/19 04:33 BUN 11 mg/dL (9-20) 02/12/19 04:33 Creatinine 0.4 mg/dL (0.8-1.5) L 02/12/19 04:33 Estimated GFR > 60 ml/min 02/12/19 04:33 BUN/Creatinine Ratio 28 % 02/12/19 04:33 Glucose 79 mg/dL (75-100) 02/12/19 04:33 POC Glucose 114 (70-105) H 02/16/19 22:21 Calcium 7.6 mg/dL (8.4-10.2) L 02/12/19 04:33 Magnesium 1.80 mg/dL (1.7-2.3) 01/29/19 05:13 Iron 7 ug/dL (49-181) L 01/28/19 07:06 TIBC 92 mcg/dL (250-450) L 01/28/19 07:06 % Saturation 7.61 % 01/28/19 07:06 Transferrin 89 mg/dl (180-329) L 01/28/19 07:06 Total Bilirubin 0.40 mg/dL (0.1-1.2) 01/27/19 10:19 AST 23 units/L (5-40) 01/27/19 10:19 ALT 20 units/L (7-56) 01/27/19 10:19 Alkaline Phosphatase 111 units/L (35-129) 01/27/19 10:19 Troponin T < 0.010 ng/mL (0.00-0.029) 01/27/19 10:19 C-Reactive Protein 4.20 mg/dL (0.00-1.30) H 02/13/19 00:36 Total Protein 5.9 g/dL (6.3-8.2) L 01/27/19 10:19 Albumin 1.9 g/dL (3.9-5) L 01/27/19 10:19 Albumin/Globulin Ratio 0.5 % 01/27/19 10:19 Vitamin B12 1887 pg/mL (211-911) H 01/28/19 07:06 RBC Folic Acid >1000 ng/mL (>280) 01/28/19 07:06 TSH 19.170 mlU/mL (0.270-4.200) H 02/11/19 16:29 Free T4 0.88 ng/dL (0.76-1.46) 02/12/19 09:16 Thyroxine (T4) 4.3 ug/dL (4.0-12.0) 02/03/19 13:46 Active Medications - Current Medications Current Medications: Generic Name Dose Route Start Last Admin Trade Name Freq PRN Reason Stop Dose Admin Aspirin 81 mg 01/28/19 10:00 02/17/19 09:25 Halfprin Ec PO 81 mg QDAY JONI Administration Cyclobenzaprine HCl 10 mg 01/30/19 08:30 02/14/19 22:09 Flexeril PO 10 mg Q8H PRN Administration Muscle Spasm Diltiazem HCl 180 mg 02/15/19 12:00 02/17/19 09:26 Cardizem Cd PO 180 mg QDAY JONI Administration Ferrous Sulfate 325 mg 01/28/19 10:00 02/17/19 09:25 Feosol PO 325 mg DAILY JONI Administration Hydromorphone HCl 0.5 mg 02/07/19 12:37 02/10/19 20:40 Dilaudid IV 0.5 mg DAILY PRN Administration Wound Care Sodium Chloride 1,000 mls @ 100 mls/hr 02/11/19 14:00 02/14/19 00:58 Nacl 0.9% 1000 Ml IV 100 mls/hr DIRECT JONI Administration Levothyroxine Sodium 125 mcg 02/13/19 06:00 02/17/19 05:26 Synthroid PO 125 mcg DAILY@0600 JONI Administration Metoprolol Tartrate 2.5 mg 01/29/19 12:51 Lopressor IV Q6HR PRN HR>130 Metoprolol Tartrate 25 mg 02/15/19 14:00 02/17/19 05:26 Lopressor PO 25 mg Q8HR JONI Administration Nicotine 21 mg 02/12/19 10:00 02/17/19 09:26 Habitrol TD 21 mg Q24HR JONI Administration Oxycodone/Acetaminophen 1 tab 02/12/19 22:30 02/17/19 12:12 Percocet 5/325 PO 1 tab Q6H PRN Administration Pain, Moderate (4-6) Pantoprazole Sodium 40 mg 01/28/19 10:00 02/17/19 09:25 Protonix PO 40 mg QDAY JONI Administration Tramadol HCl 50 mg 02/05/19 15:44 02/16/19 09:08 Ultram PO 50 mg Q6H PRN Administration Pain, Moderate (4-6) Nutrition/Malnutrition Assess - Dietary Evaluation Nutrition/Malnutrition Findings: Nutrition Notes Start: 01/28/19 15:47 Freq: Status: Active Protocol: Document 02/10/19 10:28 CP (Rec: 02/10/19 10:32 CP [email or web address]) Co-Sign 02/10/19 10:28 LP Nutrition Notes Initial or Follow up Brief Note Subjective/Other Information Pt is eating 100% of his meals and has good appetite. Nutrition Intervention Revisit per MD consult or patient Sign Off request:
[2019-02-17] MEDS: FLEXERIL PO PRN (21:43)
[2019-02-18] MEDS: PERCOCET 5/325 PO PRN ×2 (03:24→09:38)
[2019-02-18] MEDS: LOPRESSOR PO SCH (05:41)
[2019-02-18] MEDS: SYNTHROID PO SCH (05:41)
--- NOTE | 2019-02-18 09:27 | Progress Note ---
Assessment and Plan Generalized pain - chief complaint Atrial fibrillation, paroxysmal on diltiazem and metoprolol patient is not a candidate for oral anticoagulation s/t severe anemia and recent GI bleed. TSH 19.1 Unilateral LE edema LE venous doppler reports no evidence of DVT Popliteal cyst s/p I&D -wound vac in place Recent GI bleed recent EGD workup revealed gastric ulcer Leukocytosis Chronic Anemia Hypothyroidism Hyponatremia Elevated liver transaminase Chronic lung disease Tobacco abuse Ascending thoracic aorta aneurysm measuring 5cm An echocardiogram 12/2018 reveal moderate aortic valve calcification with moderate to severe aortic stenosis. Left ventricular systolic function is normal, EF 60%. Small fixed apical wall defect, no reversible ischemia on MPI done 01/2018. Recommendations: Cardiac ross stable Continue metoprolol and diltiazem for AF and atach suppression Subjective Date of service: 02/18/19 Principal diagnosis: Abscess Interval history: Patient is doing well He denies chest pain or shortness of breath He is maintaining SR this morning Objective Vital Signs Temp Pulse Pulse Pulse Resp BP Pulse Ox 02/18/19 08:21 59 L 18 93 02/18/19 07:11 98.2 F 59 L 18 113/59 93 02/18/19 05:41 59 L 95/52 02/18/19 05:39 95/52 02/18/19 03:12 98.8 F 61 18 97/52 92 02/17/19 22:00 59 L 20 95 02/17/19 21:44 59 L 112/56 02/17/19 19:29 98.3 F 59 L 20 112/56 95 02/17/19 14:21 94 02/17/19 13:29 63 107/54 02/17/19 13:28 64 18 107/54 91 02/17/19 12:12 18 02/17/19 10:00 59 L 18 93 - Physical Examination General: No Apparent Distress HEENT: Positive: PERRL Neck: Positive: trachea midline Cardiac: Positive: Reg Rate and Rhythm Lungs: Positive: Normal Exam Neuro: Positive: Weakness Abdomen: Positive: Soft Skin: Positive: Clear Extremities: Absent: edema - Imaging and Cardiology EKG: report reviewed (Afib with RVR 130/min)
[2019-02-18] MEDS: FEOSOL PO SCH (09:35)
[2019-02-18] MEDS: HALFPRIN EC PO SCH (09:35)
[2019-02-18] MEDS: PROTONIX PO SCH (09:36)
[2019-02-18] MEDS: HABITROL TD SCH (09:36)
[2019-02-18] MEDS: CARDIZEM CD PO SCH (09:38)
[2019-02-18 09:39] VITALS: BP 101/50
--- NOTE | 2019-02-18 10:36 | Discharge Summary ---
Providers - Providers Date of Admission: 01/27/19 15:51 Attending physician: JOSHUA KIRK MD 01/27/19 19:50 Consult to Wound/ET Nurse [CONS] Routine Reason For Exam: wound eval Physical Therapy Evaluation and Treat [CONS] Routine Comment: Reason For Exam: weakness 01/28/19 06:52 Consult to Physician [CONS] Routine Comment: Consulting Provider: JOSÉ GARRIDO Physician Instructions: Reason For Exam: LLE swelling 01/28/19 14:10 Consult to Physician [CONS] Routine Comment: Consulting Provider: LEXI LANDERS Physician Instructions: Reason For Exam: bilateral ruptured bakers cyst 01/30/19 12:11 Occupational Therapy Evaluate and Treat [CONS] Routine Comment: Reason For Exam: ADLs evaluation Physical Therapy Evaluation and Treat [CONS] Routine Comment: Reason For Exam: gait evaluation/ambulatory dysfunction 01/30/19 12:14 Consult to Case Management [CONS] Routine Services Needed at Discharge: Skiver Heel Tap Notified:: continuous pillowcase cutter Additional Physician Instructions: SNF Placement as per family request: [facility] send out [facility]. 02/03/19 10:47 Consult to Physician [CONS] Routine Comment: Consulting Provider: KRISS WERNER Physician Instructions: Reason For Exam: afib rvr 02/06/19 14:53 Consult to Physician [CONS] Routine Comment: Consulting Provider: ALTON VALENTIN Physician Instructions: Reason For Exam: suspected leg abscess/ soft tissue infection Hospitalization Condition: Stable Hospital course: 78 yo man with a history of afib, hypertension, asthma, hypothyroid, recent GIB with Gastric ulcer s/p endoclip repair who presented to ED on with c/o left leg pains and palpitations. He was previously admitted to [facility] approximately one month ago with similar presentation. An echocardiogram performed during p revious admission revealed moderate aortic valve calcification with moderate to severe aortic stenosis. Left ventricular systolic function is normal, EF 60%. 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 pw Afib with RVR, not a candidate for robin due to pud and anemia * He developed paroxysmal atrial fibrillation with RVR, rate control medications were adjusted per cardiology. He was not on candidate for anticoagulation given recent peptic ulcer disease. The patient will need repeat EGD to document resolution of also as before he can be put on anticoagulation for stroke prophylaxis * -Left leg pain with ruptured Ceballos cyst s/p incisional drainage 02/09/19 and now excisional debridement on 02/11/19,: wound vac was placed to left calf. * The patient developed hypoxia and acute respiratory failure due to fluid overload and pulmonary edema. The patient received Lasix, his echo showed preserved EF, and he was weaned off oxygen * He'll receive physical therapy, he'll continue therapy at subacute rehabilitation Diagnosis PAF with RVR hypercoaguable state Left LLE pain, ruptured popliteal cyst -left leg abscess ruled out -chronic anemia -htn -Acute diastolic heart failure, EF 60% -hx of PUD, seen on recent egd -GERD -acute hypoxic respiratory failure due to pulmonary edema -ataxia/debility Disposition: [id number]/[place]-[id number] Time spent for discharge: 33 mins Core Measure Documentation - Palliative Care Palliative Care/ Comfort Measures: Not Applicable - Core Measures Any of the following diagnoses?: none Exam - Physical Exam Narrative exam: General.: Appears well, no distress, nontoxic HEENT: Moist mucous membranes, extraocular muscles intact, no lymphadenopathy Neck: supple Cardiac: S1-S2 heard Lungs: bibasilar crackles Abdomen: soft , nontender, nondistended, bowel sounds positive Extremities: no edema clubbing or cyanosis Skin: LLE wound , dressing not removed, no surrounding erythema or tenderness Neurologic: no gross focal deficits Psych: calm, and cooperative - Constitutional Vitals: Temp Pulse Resp BP Pulse Ox 98.2 F 63 18 101/50 93 02/18/19 07:11 02/18/19 09:38 02/18/19 09:38 02/18/19 09:38 02/18/19 08:21 Plan Follow up with: GEO KUMAR [Other] - 3-5 Days KRISS WERNER MD [Staff Physician] - 10 Days ALTON VALENTIN MD [Staff Physician] - 14 Days JOSÉ GARRIDO MD [Staff Physician] - 6 Weeks LEXI LANDERS MD [Staff Physician] - 7 Days Prescriptions: Polyethylene Glycol 3350 [Miralax 3350] 17 gm PO QDAY PRN #15 packet PRN Reason: Constipation
== END 2019-02-18 12:45 | DRG 500 ==
LOC: ED 09:34 → 4A 15:51 → 2B-ACE 02-07 16:24 → UNDODISIN 02-16 16:25
PROVIDERS: ADMIT Internal Medicine; ATTEND Internal Medicine
PROC: 0J9P3ZZ Drainage of Left Lower Leg Subcutaneous Tissue and Fascia, Percutaneous Approach (ICD-10-PCS; 2019-02-06)
PROC: 0J9P0ZZ Drainage of Left Lower Leg Subcutaneous Tissue and Fascia, Open Approach (ICD-10-PCS; principal; 2019-02-11)
DX: M66.0 Rupture of popliteal cyst (principal); E43 Unspecified severe protein-calorie malnutrition; I50.31 Acute diastolic (congestive) heart failure; J96.01 Acute respiratory failure with hypoxia; E87.1 Hypo-osmolality and hyponatremia; K92.2 Gastrointestinal hemorrhage, unspecified; I47.1 Supraventricular tachycardia; D68.59 Other primary thrombophilia; I11.0 Hypertensive heart disease with heart failure; I95.9 Hypotension, unspecified; J44.9 Chronic obstructive pulmonary disease, unspecified; F17.210 Nicotine dependence, cigarettes, uncomplicated; E03.9 Hypothyroidism, unspecified; K21.9 Gastro-esophageal reflux disease without esophagitis; D64.9 Anemia, unspecified; I70.0 Atherosclerosis of aorta; I35.0 Nonrheumatic aortic (valve) stenosis; I71.2 Thoracic aortic aneurysm, without rupture; I48.0 Paroxysmal atrial fibrillation; I73.9 Peripheral vascular disease, unspecified; G89.29 Other chronic pain; E87.5 Hyperkalemia; Z79.82 Long term (current) use of aspirin; Z68.30 Body mass index [BMI] 30.0-30.9, adult; Z96.642 Presence of left artificial hip joint; Z96.653 Presence of artificial knee joint, bilateral; Z89.422 Acquired absence of other left toe(s)
CPT/HCPCS: 36415; 71045; 72040; 80048; 80053; 82607; 82747; 82962; 83550; 83735; 84436; 84439; 84443; 84484; 85007; 85025; 85027; 86140; 87040; 87075; 87116; 93005; 93010; 93925; 93970; 94760; 99291; 99406; G0378; A4217; J0282; J0295; J0696; J1160; J1170; J1650; J1940; J2270; J2704; J3010; J3370; J3475; J7030; J7040; J7060

== ENCOUNTER 2021-01-08 15:11 | Emergency (ER) | payer MEDICARE ==
[~2021-01-08 15:11] MED LIST: AMIODARONE 150 MG/3 ML INJ IV ONE; DEXTROSE 50% IN WATER (25GM) 50 ML SYRINGE IV ONE; EPINEPHrine 1 MG/10 ML SYRINGE ONE; SODIUM BICARB 8.4% 50 MEQ/50 ML SYRINGE IV ONE
[2021-01-08] MEDS ORDERED: NORepinephrine/NS 4 MG-250 ML 4 MG/250 ML BAG IV ONE (15:13)
[2021-01-08] MEDS ORDERED: SODIUM CHLORIDE 0.9% 1000 ML 1,000 ML ONE (15:13)
[2021-01-08] MEDS ORDERED: SODIUM CHLORIDE 0.9% 1000 ML 1,000 ML IV ONE ×2 (15:25→16:07)
[2021-01-08] MEDS ORDERED: LIP THERAPY VASELINE TP PRN (15:35)
[2021-01-08] MEDS ORDERED: MINERAL OIL/PETROLATUM, WHITE OPHTH OINT 3.5 GM OU PRN (15:35)
[2021-01-08 15:41] LABS: Basophils % (Auto) 0.2 % (0.0-1.8); Eosinophils % (Auto) 0.1 % (0.0-4.3); Lymphocytes % (Auto) 8.3 % (13.4-35.0); Mean Corpuscular HGB Conc 30 % (32-34); Monocytes # (Auto) 0.7 K/mm3 (0.0-0.8); Monocytes % (Auto) 5.8 % (0.0-7.3); Platelet Count 301 K/mm3 (140-440); Red Blood Count 4.08 M/mm3 (3.65-5.03); Red Cell Distribution Width 16.3 % (13.2-15.2)
--- NOTE | 2021-01-08 15:41 | Emergency Department Report ---
HPI - General Time Seen by Provider: 01/08/21 15:23 - HPI HPI: This is a 80-year-old male who presents to the emergency department via EMS from home in cardiac arrest. Patient was last seen awake and alive last night. Family saw the patient sleeping this morning. At some point, prior to presentation, the family found the patient unresponsive and he did not appear to be breathing so they began CPR and called for EMS. EMS found the patient to be in asystole. Patient was intubated, began receiving bag valve ventilation, and they continued chest compressions. The patient was given 3 rounds of epinephrine and they had ROSC about 5 minutes prior to presentation. The patient has been to this emergency department previously, the last time in 2019. He appears to have a past medical history of atrial fibrillation, GERD, gastric ulcer with previous GI bleed, and a history of opiate abuse. Per EMS, family says that he recently got a large prescription of OxyContin and has been taking them at a rate faster than prescribed. The patient did receive 3 different doses of Narcan with EMS. 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, 2 neck surgeries - Social History Smoking Status: Former Smoker - Medications Home Medications: Home Medications Medication Instructions Recorded Confirmed Last Taken Type Pantoprazole [Protonix TAB] 40 mg PO QDAY #30 tablet 01/14/19 01/27/19 Unknown Rx Aspirin EC [Halfprin EC] 81 mg PO QDAY #30 tab 02/13/19 01/27/19 Unknown Rx Cyclobenzaprine [Flexeril 10 MG 10 mg PO Q8H PRN #60 tablet 02/13/19 Unknown Rx TAB] Ferrous Sulfate [Iron 325 MG] 325 mg PO DAILY #30 02/13/19 01/27/19 Unknown Rx Levothyroxine [Synthroid] 112 mcg PO DAILY #30 02/13/19 01/27/19 Unknown Rx Nicotine [Habitrol] 21 mg TD Q24HR #30 patch 02/13/19 Unknown Rx polyethylene glycoL 3350 [Miralax 17 gm PO QDAY PRN #15 packet 02/13/19 Unknown Rx 3350] traMADoL [Ultram 50 MG tab] 50 mg PO Q6H PRN #4 tablet 02/13/19 Unknown Rx Metoprolol [Lopressor TAB] 25 mg PO Q8HR tablet 02/18/19 Unknown Rx dilTIAZem CD [Cardizem CD] 180 mg PO QDAY capsule 02/18/19 Unknown Rx ED Review of Systems ROS: Stated complaint: CHEST PAINS Other details as noted in HPI Comment: Unobtainable due to pts medical conditions Physical Exam - Physical Exam Physical Exam: GENERAL: Patient is ill-appearing and unresponsive. HENT: Normocephalic. Atraumatic. Endotracheal tube in place. EYES: Pupils are dilated and sluggish but equal. NECK: Supple. Trachea is midline. CHEST/LUNGS: Coarse breath sounds. No tachypnea but the patient is on mechanical ventilation. HEART/CARDIOVASCULAR: Regular. There is no tachycardia. There is no murmur. ABDOMEN: Abdomen is soft, nontender. Patient has normal bowel sounds. There is no abdominal distention. SKIN: Skin is warm and dry. NEURO: Patient is unresponsive to any verbal or tactile stimuli. MUSCULOSKELETAL: There is no obvious deformity. There is no spontaneous movement of the extremities. ED Course - Reevaluation(s) Reevaluation #1: 01/08/21 20:41 About 20 minutes ago I was called back into the room as the patient appeared to have significant bradycardia and lose his pulse. ACLS protocol was initiated. The patient received chest compressions, bag valve ventilation, and the patient was given a dose of epinephrine and sodium bicarbonate. For the first 2 rounds the patient appeared to be in PEA during the pulse and rhythm check. An Accu- Chek was done and showed a blood sugar of 35. The patient was given a dose of D50. He went up to about 45 and was given another amp of D50. During the third pulse and rhythm check, the patient appeared to be in V. tach. He was given a 2 00 J defibrillation and a 300 mg dose of amiodarone. The patient was also given another dose of epinephrine. On the fourth pulse and rhythm check the patient had ROSC. He still had hypotension so the epinephrine drip was maxed out and we went to start dopamine. By this time the patient had been admitted to the hospitalist service of Dr. Fang was notified. He went and spoke to the patient's family and they decided to make the patient DNR and withdraw the pressors. - Consultations Consultation #1: 01/08/21 15:39 The EKG shows concern of an acute inferior MT, along with a right bundle branch block and left anterior fascicular block. The EKG was sent over to the nutritional services cook on-call, Dr. Easton. He agrees that the EKG is concerning for ischemic changes. However, given the patient's critical condition, intubated, hypotensive on pressors, and with the EKG being post cardiac arrest, we are not initiating the Set Decorator at this time. We will obtain labs, chest x-ray, and I will touch base with cardiology again shortly with thes e results. - ABG Interpretation Ph: 6.89 PCO2: 107 PO2: 178 Bicarbonate: 20 Interpretation: respiratory acidosis, metabolic acidosis - Central Line Placement Right Femoral Consent Obtained: emergent situation Patient Placed on Monitor/Pulse Ox: Yes MD Prep: mask, gown, gloves Central Line Prep: Chlorhexidine scrub Ultrasound Used for Placement: No Central Line Lumen Inserted: triple Reason for Insertion: Emergency Venous Access Bloods Obtained for Lab: Yes Central Line Position: good blood return, all ports aspirated, flus, sutured in place with nyl Dressing Applied: Tegaderm, sterile gauze/tape Patient Tolerated Procedure: well Complications: none ED Medical Decision Making - Lab Data Result diagrams: 01/08/21 15:33 01/08/21 15:33 Lab Results 01/08/21 01/08/21 01/08/21 Range/Units 15:19 15:33 15:33 WBC 12.0 H (4.5-11.0) K/mm3 RBC 4.08 (3.65-5.03) M/mm3 Hgb 13.6 (11.8-15.2) gm/dl Hct 45.9 H (35.5-45.6) % MCV 112 H (84-94) fl MCH 33 H (28-32) pg MCHC 30 L (32-34) % RDW 16.3 H (13.2-15.2) % Plt Count 301 (140-440) K/mm3 Lymph % (Auto) 8.3 L (13.4-35.0) % [place] % (Auto) 5.8 (0.0-7.3) % Eos % (Auto) 0.1 (0.0-4.3) % Baso % (Auto) 0.2 (0.0-1.8) % Lymph # (Auto) 1.0 L (1.2-5.4) K/mm3 [place] # (Auto) 0.7 (0.0-0.8) K/mm3 Eos # (Auto) 0.0 (0.0-0.4) K/mm3 Baso # (Auto) 0.0 (0.0-0.1) K/mm3 Seg Neutrophils % 85.6 H (40.0-70.0) % Seg Neutrophils # 10.3 H (1.8-7.7) K/mm3 PT 19.8 H (12.2-14.9) Sec. INR 1.69 H (0.87-1.13) APTT 36.1 (24.2-36.6) Sec. ABG pH (7.350-7.450) pH Units ABG pCO2 mm Hg ABG pO2 (80.0-90.0) mm Hg ABG HCO3 (20.0-26.0) mmol/L ABG O2 Saturation (95.0-99.0) % ABG O2 Content (0.0-44) ABG Base Excess (-2.0-3.0) mmol/L ABG Hemoglobin (14.0-18.0) gm/dl ABG Carboxyhemoglobin (0.0-5.0) % ABG Methemoglobin (0.0-1.5) % VBG pH (7.320-7.420) Oxyhemoglobin (95.0-99.0) % FiO2 % Sodium (137-145) mmol/L Potassium (3.6-5.0) mmol/L Chloride (98-107) mmol/L Carbon Dioxide (22-30) mmol/L Anion Gap mmol/L BUN (9-20) mg/dL Creatinine (0.8-1.3) mg/dL Estimated GFR ml/min BUN/Creatinine Ratio % Glucose (75-100) mg/dL POC Glucose 104 (70-105) mg/dL Lactic Acid (0.7-2.0) mmol/L Calcium (8.4-10.2) mg/dL Total Bilirubin (0.1-1.2) mg/dL AST (5-40) units/L ALT (7-56) units/L Alkaline Phosphatase (35-129) units/L Ammonia (25-60) umol/L Troponin T (0.00-0.029) ng/mL Total Protein (6.3-8.2) g/dL Albumin (3.9-5) g/dL Albumin/Globulin Ratio % Triglycerides (2-149) mg/dL Cholesterol (50-199) mg/dL LDL Cholesterol Direct (50-130) mg/dL HDL Cholesterol (40-59) mg/dL Cholesterol/HDL Ratio % TSH (0.270-4.200) mlU/mL Urine Color (Yellow) Urine Turbidity (Clear) Urine pH (5.0-7.0) Ur Specific [place] (1.003-1.030) Urine Protein (Negative) mg/dL Urine Glucose (UA) (Negative) mg/dL Urine Ketones (Negative) mg/dL Urine Blood (Negative) Urine Nitrite (Negative) Urine Bilirubin (Negative) Urine Urobilinogen (<2.0) mg/dL Ur Leukocyte Esterase (Negative) Urine WBC (Auto) (0.0-6.0) /HPF Urine RBC (Auto) (0.0-6.0) /HPF Urine Mucus /HPF Urine Opiates Screen Urine Methadone Screen Ur Barbiturates Screen Ur Phencyclidine Scrn Ur Amphetamines Screen U Benzodiazepines Scrn Urine Cocaine Screen U Marijuana (THC) Screen Drugs of Abuse Note Plasma/Serum Alcohol (0-0.07) % 01/08/21 01/08/21 01/08/21 Range/Units 15:33 15:33 15:33 WBC (4.5-11.0) K/mm3 RBC (3.65-5.03) M/mm3 Hgb (11.8-15.2) gm/dl Hct (35.5-45.6) % MCV (84-94) fl MCH (28-32) pg MCHC (32-34) % RDW (13.2-15.2) % Plt Count (140-440) K/mm3 Lymph % (Auto) (13.4-35.0) % [place] % (Auto) (0.0-7.3) % Eos % (Auto) (0.0-4.3) % Baso % (Auto) (0.0-1.8) % Lymph # (Auto) (1.2-5.4) K/mm3 [place] # (Auto) (0.0-0.8) K/mm3 Eos # (Auto) (0.0-0.4) K/mm3 Baso # (Auto) (0.0-0.1) K/mm3 Seg Neutrophils % (40.0-70.0) % Seg Neutrophils # (1.8-7.7) K/mm3 PT (12.2-14.9) Sec. INR (0.87-1.13) APTT (24.2-36.6) Sec. ABG pH (7.350-7.450) pH Units ABG pCO2 mm Hg ABG pO2 (80.0-90.0) mm Hg ABG HCO3 (20.0-26.0) mmol/L ABG O2 Saturation (95.0-99.0) % ABG O2 Content (0.0-44) ABG Base Excess (-2.0-3.0) mmol/L ABG Hemoglobin (14.0-18.0) gm/dl ABG Carboxyhemoglobin (0.0-5.0) % ABG Methemoglobin (0.0-1.5) % VBG pH (7.320-7.420) Oxyhemoglobin (95.0-99.0) % FiO2 % Sodium 140 (137-145) mmol/L Potassium 6.6 H* (3.6-5.0) mmol/L Chloride 100.7 (98-107) mmol/L Carbon Dioxide 15 L (22-30) mmol/L Anion Gap 31 mmol/L BUN 30 H (9-20) mg/dL Creatinine 2.7 H (0.8-1.3) mg/dL Estimated GFR 23 ml/min BUN/Creatinine Ratio 11 % Glucose 119 H (75-100) mg/dL POC Glucose (70-105) mg/dL Lactic Acid 12.40 H* (0.7-2.0) mmol/L Calcium 7.3 L (8.4-10.2) mg/dL Total Bilirubin 0.40 (0.1-1.2) mg/dL AST 636 H (5-40) units/L ALT 399 H (7-56) units/L Alkaline Phosphatase 91 (35-129) units/L Ammonia 216.0 H (25-60) umol/L Troponin T 0.376 H* (0.00-0.029) ng/mL Total Protein 5.5 L (6.3-8.2) g/dL Albumin 2.8 L (3.9-5) g/dL Albumin/Globulin Ratio 1.0 % Triglycerides 75 (2-149) mg/dL Cholesterol 85 (50-199) mg/dL LDL Cholesterol Direct 41 L (50-130) mg/dL HDL Cholesterol 36 L (40-59) mg/dL Cholesterol/HDL Ratio 2.36 % TSH (0.270-4.200) mlU/mL Urine Color (Yellow) Urine Turbidity (Clear) Urine pH (5.0-7.0) Ur Specific [place] (1.003-1.030) Urine Protein (Negative) mg/dL Urine Glucose (UA) (Negative) mg/dL Urine Ketones (Negative) mg/dL Urine Blood (Negative) Urine Nitrite (Negative) Urine Bilirubin (Negative) Urine Urobilinogen (<2.0) mg/dL Ur Leukocyte Esterase (Negative) Urine WBC (Auto) (0.0-6.0) /HPF Urine RBC (Auto) (0.0-6.0) /HPF Urine Mucus /HPF Urine Opiates Screen Urine Methadone Screen Ur Barbiturates Screen Ur Phencyclidine Scrn Ur Amphetamines Screen U Benzodiazepines Scrn Urine Cocaine Screen U Marijuana (THC) Screen Drugs of Abuse Note Plasma/Serum Alcohol (0-0.07) % 01/08/21 01/08/21 01/08/21 Range/Units 15:33 15:36 16:00 WBC (4.5-11.0) K/mm3 RBC (3.65-5.03) M/mm3 Hgb (11.8-15.2) gm/dl Hct (35.5-45.6) % MCV (84-94) fl MCH (28-32) pg MCHC (32-34) % RDW (13.2-15.2) % Plt Count (140-440) K/mm3 Lymph % (Auto) (13.4-35.0) % [place] % (Auto) (0.0-7.3) % Eos % (Auto) (0.0-4.3) % Baso % (Auto) (0.0-1.8) % Lymph # (Auto) (1.2-5.4) K/mm3 [place] # (Auto) (0.0-0.8) K/mm3 Eos # (Auto) (0.0-0.4) K/mm3 Baso # (Auto) (0.0-0.1) K/mm3 Seg Neutrophils % (40.0-70.0) % Seg Neutrophils # (1.8-7.7) K/mm3 PT (12.2-14.9) Sec. INR (0.87-1.13) APTT (24.2-36.6) Sec. ABG pH 6.890 L* (7.350-7.450) pH Units ABG pCO2 107.5 mm Hg ABG pO2 178.3 H (80.0-90.0) mm Hg ABG HCO3 20.1 (20.0-26.0) mmol/L ABG O2 Saturation 98.4 (95.0-99.0) % ABG O2 Content 18.8 (0.0-44) ABG Base Excess -15.2 L (-2.0-3.0) mmol/L ABG Hemoglobin 14.1 (14.0-18.0) gm/dl ABG Carboxyhemoglobin 4.3 (0.0-5.0) % ABG Methemoglobin 0.7 (0.0-1.5) % VBG pH 6.856 L* (7.320-7.420) Oxyhemoglobin 93.5 L (95.0-99.0) % FiO2 100 % Sodium (137-145) mmol/L Potassium (3.6-5.0) mmol/L Chloride (98-107) mmol/L Carbon Dioxide (22-30) mmol/L Anion Gap mmol/L BUN (9-20) mg/dL Creatinine (0.8-1.3) mg/dL Estimated GFR ml/min BUN/Creatinine Ratio % Glucose (75-100) mg/dL POC Glucose (70-105) mg/dL Lactic Acid (0.7-2.0) mmol/L Calcium (8.4-10.2) mg/dL Total Bilirubin (0.1-1.2) mg/dL AST (5-40) units/L ALT (7-56) units/L Alkaline Phosphatase (35-129) units/L Ammonia (25-60) umol/L Troponin T (0.00-0.029) ng/mL Total Protein (6.3-8.2) g/dL Albumin (3.9-5) g/dL Albumin/Globulin Ratio % Triglycerides (2-149) mg/dL Cholesterol (50-199) mg/dL LDL Cholesterol Direct (50-130) mg/dL HDL Cholesterol (40-59) mg/dL Cholesterol/HDL Ratio % TSH (0.270-4.200) mlU/mL Urine Color (Yellow) Urine Turbidity (Clear) Urine pH (5.0-7.0) Ur Specific [place] (1.003-1.030) Urine Protein (Negative) mg/dL Urine Glucose (UA) (Negative) mg/dL Urine Ketones (Negative) mg/dL Urine Blood (Negative) Urine Nitrite (Negative) Urine Bilirubin (Negative) Urine Urobilinogen (<2.0) mg/dL Ur Leukocyte Esterase (Negative) Urine WBC (Auto) (0.0-6.0) /HPF Urine RBC (Auto) (0.0-6.0) /HPF Urine Mucus /HPF Urine Opiates Screen Urine Methadone Screen Ur Barbiturates Screen Ur Phencyclidine Scrn Ur Amphetamines Screen U Benzodiazepines Scrn Urine Cocaine Screen U Marijuana (THC) Screen Drugs of Abuse Note Plasma/Serum Alcohol < 0.01 (0-0.07) % 01/08/21 01/08/21 01/08/21 Range/Units 16:01 16:22 16:22 WBC (4.5-11.0) K/mm3 RBC (3.65-5.03) M/mm3 Hgb (11.8-15.2) gm/dl Hct (35.5-45.6) % MCV (84-94) fl MCH (28-32) pg MCHC (32-34) % RDW (13.2-15.2) % Plt Count (140-440) K/mm3 Lymph % (Auto) (13.4-35.0) % [place] % (Auto) (0.0-7.3) % Eos % (Auto) (0.0-4.3) % Baso % (Auto) (0.0-1.8) % Lymph # (Auto) (1.2-5.4) K/mm3 [place] # (Auto) (0.0-0.8) K/mm3 Eos # (Auto) (0.0-0.4) K/mm3 Baso # (Auto) (0.0-0.1) K/mm3 Seg Neutrophils % (40.0-70.0) % Seg Neutrophils # (1.8-7.7) K/mm3 PT (12.2-14.9) Sec. INR (0.87-1.13) APTT (24.2-36.6) Sec. ABG pH (7.350-7.450) pH Units ABG pCO2 mm Hg ABG pO2 (80.0-90.0) mm Hg ABG HCO3 (20.0-26.0) mmol/L ABG O2 Saturation (95.0-99.0) % ABG O2 Content (0.0-44) ABG Base Excess (-2.0-3.0) mmol/L ABG Hemoglobin (14.0-18.0) gm/dl ABG Carboxyhemoglobin (0.0-5.0) % ABG Methemoglobin (0.0-1.5) % VBG pH (7.320-7.420) Oxyhemoglobin (95.0-99.0) % FiO2 % Sodium (137-145) mmol/L Potassium (3.6-5.0) mmol/L Chloride (98-107) mmol/L Carbon Dioxide (22-30) mmol/L Anion Gap mmol/L BUN (9-20) mg/dL Creatinine (0.8-1.3) mg/dL Estimated GFR ml/min BUN/Creatinine Ratio % Glucose (75-100) mg/dL POC Glucose (70-105) mg/dL Lactic Acid (0.7-2.0) mmol/L Calcium (8.4-10.2) mg/dL Total Bilirubin (0.1-1.2) mg/dL AST (5-40) units/L ALT (7-56) units/L Alkaline Phosphatase (35-129) units/L Ammonia (25-60) umol/L Troponin T (0.00-0.029) ng/mL Total Protein (6.3-8.2) g/dL Albumin (3.9-5) g/dL Albumin/Globulin Ratio % Triglycerides (2-149) mg/dL Cholesterol (50-199) mg/dL LDL Cholesterol Direct (50-130) mg/dL HDL Cholesterol (40-59) mg/dL Cholesterol/HDL Ratio % TSH 6.650 H (0.270-4.200) mlU/mL Urine Color Yellow (Yellow) Urine Turbidity Clear (Clear) Urine pH 5.0 (5.0-7.0) Ur Specific [place] 1.012 (1.003-1.030) Urine Protein <15 mg/dl (Negative) mg/dL Urine Glucose (UA) Neg (Negative) mg/dL Urine Ketones Neg (Negative) mg/dL Urine Blood Neg (Negative) Urine Nitrite Neg (Negative) Urine Bilirubin Neg (Negative) Urine Urobilinogen < 2.0 (<2.0) mg/dL Ur Leukocyte Esterase Neg (Negative) Urine WBC (Auto) 1.0 (0.0-6.0) /HPF Urine RBC (Auto) 2.0 (0.0-6.0) /HPF Urine Mucus Few /HPF Urine Opiates Screen Negative Urine Methadone Screen Negative Ur Barbiturates Screen Negative Ur Phencyclidine Scrn Negative Ur Amphetamines Screen Negative U Benzodiazepines Scrn Positive Urine Cocaine Screen Negative U Marijuana (THC) Screen Negative Drugs of Abuse Note Disclamer Plasma/Serum Alcohol (0-0.07) % 01/08/21 01/08/21 Range/Units 17:37 18:30 WBC (4.5-11.0) K/mm3 RBC (3.65-5.03) M/mm3 Hgb (11.8-15.2) gm/dl Hct (35.5-45.6) % MCV (84-94) fl MCH (28-32) pg MCHC (32-34) % RDW (13.2-15.2) % Plt Count (140-440) K/mm3 Lymph % (Auto) (13.4-35.0) % [place] % (Auto) (0.0-7.3) % Eos % (Auto) (0.0-4.3) % Baso % (Auto) (0.0-1.8) % Lymph # (Auto) (1.2-5.4) K/mm3 [place] # (Auto) (0.0-0.8) K/mm3 Eos # (Auto) (0.0-0.4) K/mm3 Baso # (Auto) (0.0-0.1) K/mm3 Seg Neutrophils % (40.0-70.0) % Seg Neutrophils # (1.8-7.7) K/mm3 PT (12.2-14.9) Sec. INR (0.87-1.13) APTT (24.2-36.6) Sec. ABG pH (7.350-7.450) pH Units ABG pCO2 mm Hg ABG pO2 (80.0-90.0) mm Hg ABG HCO3 (20.0-26.0) mmol/L ABG O2 Saturation (95.0-99.0) % ABG O2 Content (0.0-44) ABG Base Excess (-2.0-3.0) mmol/L ABG Hemoglobin (14.0-18.0) gm/dl ABG Carboxyhemoglobin (0.0-5.0) % ABG Methemoglobin (0.0-1.5) % VBG pH (7.320-7.420) Oxyhemoglobin (95.0-99.0) % FiO2 % Sodium (137-145) mmol/L Potassium (3.6-5.0) mmol/L Chloride (98-107) mmol/L Carbon Dioxide (22-30) mmol/L Anion Gap mmol/L BUN (9-20) mg/dL Creatinine (0.8-1.3) mg/dL Estimated GFR ml/min BUN/Creatinine Ratio % Glucose (75-100) mg/dL POC Glucose (70-105) mg/dL Lactic Acid 9.60 H* (0.7-2.0) mmol/L Calcium (8.4-10.2) mg/dL Total Bilirubin (0.1-1.2) mg/dL AST (5-40) units/L ALT (7-56) units/L Alkaline Phosphatase (35-129) units/L Ammonia (25-60) umol/L Troponin T 0.584 H* D (0.00-0.029) ng/mL Total Protein (6.3-8.2) g/dL Albumin (3.9-5) g/dL Albumin/Globulin Ratio % Triglycerides (2-149) mg/dL Cholesterol (50-199) mg/dL LDL Cholesterol Direct (50-130) mg/dL HDL Cholesterol (40-59) mg/dL Cholesterol/HDL Ratio % TSH (0.270-4.200) mlU/mL Urine Color (Yellow) Urine Turbidity (Clear) Urine pH (5.0-7.0) Ur Specific [place] (1.003-1.030) Urine Protein (Negative) mg/dL Urine Glucose (UA) (Negative) mg/dL Urine Ketones (Negative) mg/dL Urine Blood (Negative) Urine Nitrite (Negative) Urine Bilirubin (Negative) Urine Urobilinogen (<2.0) mg/dL Ur Leukocyte Esterase (Negative) Urine WBC (Auto) (0.0-6.0) /HPF Urine RBC (Auto) (0.0-6.0) /HPF Urine Mucus /HPF Urine Opiates Screen Urine Methadone Screen Ur Barbiturates Screen Ur Phencyclidine Scrn Ur Amphetamines Screen U Benzodiazepines Scrn Urine Cocaine Screen U Marijuana (THC) Screen Drugs of Abuse Note Plasma/Serum Alcohol (0-0.07) % - EKG Data -: EKG Interpreted by Me EKG shows normal: sinus rhythm, axis, intervals (/Slightly prolonged QTC), QRS complexes (Right bundle branch block, left anterior fascicular block), ST-T waves (ST elevation to leads III and aVF, mild depression to anteroseptal leads V2 and V3) Rate: tachycardia (107 bpm) - EKG Data When compared to previous EKG there are: changes noted (Previous EKG from 01/2019 showed atrial fibrillation and did have the anteroseptal ST depressions that are most likely from the RBBB but did not have inferior elevations at that time) Interpretation: other (Sinus tachycardia at 107 with an irregular rate. Left axis deviation. Slightly prolonged QTC. Inferior ST elevations in leads III and aVF. ST depressions in the anteroseptal leads of V2 and V3.) - Radiology Data Radiology results: report reviewed interpreted by me: Chest x-ray was interpreted by me. No pneumonia, pneumothorax. Endotracheal tube is in appropriate position. CT HEAD WITHOUT CONTRAST INDICATION / CLINICAL INFORMATION: Altered mental status. Unresponsive patient. Ventilator dependent status post cardiac arrest. TECHNIQUE: All CT scans at this location are performed using CT dose reduction for ALARA by means of automated exposure control. COMPARISON: None available. FINDINGS: HEMORRHAGE: No evidence of intracranial hemorrhage or extra-axial fluid collection. EXTRA-AXIAL SPACES: Cortical sulci, sylvian fissures and basilar cisterns have an unremarkable appearance. VENTRICULAR SYSTEM: The third and lateral ventricles are of normal size and configuration. CEREBRAL PARENCHYMA: No areas of abnormal brain parenchymal attenuation are identified. There is no indication of recent infarction. MIDLINE SHIFT OR HERNIATION: There is no mass effect. CEREBELLUM / BRAINSTEM: Brainstem and cerebellum have an unremarkable appearance. MIDLINE STRUCTURES:No abnormalities of the pituitary gland or pineal region are identified. INTRACRANIAL VESSELS: Extensively calcified atherosclerotic plaque is seen along the course the cavernous segments of both internal carotid arteries. This extends upward into the supraclinoid reg ion bilaterally, right worse than left. ORBITS: Bilateral enophthalmos is incidentally noted. No additional abnormalities. SOFT TISSUES of HEAD: No significant abnormality. CALVARIUM: Evaluation of bone windows reveals no abnormalities. PARANASAL SINUSES / MASTOID AIR CELLS: Visualized portions of the paranasal sinuses are free from inflammatory mucosal disease. Mastoid air cells are normally pneumatized. IMPRESSION: 1. No acute intracranial abnormality on head CT without contrast. - Medical Decision Making This patient presented to the emergency department after was in cardiac arrest and had ROSC in route. The patient arrives intubated but hypotensive. IV fluid resuscitation was started. I placed a right femoral central venous catheter as per the procedure section. The patient was started on Levophed and once this was maxed out the patient was then started on dopamine. The patient's blood pressure began to normalize with the pressors. Chest x-ray did not show any pneumothorax, obvious pneumonia, pleural effusions, and the endotracheal tube appeared in appropriate position. An EKG was done immediately upon the patient's arrival to the emergency department and appeared concerning for an inferior MT or at least ischemic changes. Cardiology was contacted but based on the patient's condition and presentation the decision was made not to activate the Set Decorator. The specimen collector called back after about 15 minutes and we reviewed some of the lab results and once again the decision was made not to activate the Set Decorator. The patient had multiple lab abnormalities including severe acidosis with a pH of about 6.8, elevated troponin level, what appears to be shock liver with severe transaminitis, lactic acidosis, hyperammonemia, and hyperkalemia. The patient continue to receive IV fluid resuscitation. He received some albuterol, insulin and glucose, and Kayexalate for the hyperkalemia. He received lactulose for the hyperammonemia. He continued to receive pressors. The patient went to have a CT scan of the head without contrast that did not show any hemorrhage or large vessel occlusion. Shortly after the patient was admitted I was called to reevaluate the patient as he appeared to go pulseless. The patient appeared to be in asystole and ACLS protocol was initiated as per the reevaluation section. We did have return of spontaneous circulation. At this point the hospitalist spoke to the patient's and daughter. The decision was made to make the patient a DNR and withdraw pressor support. Critical Care Time: Yes Critical care time in (mins) excluding proc time.: 90 Critical care attestation.: If time is entered above; I have spent that time in minutes in the direct care of this critically ill patient, excluding procedure time. Critical care time was spent on this patient in doing his initial evaluation, multiple reevaluations, ordering and interpretation of labs and imaging, treatment of his hyperkalemia, treatment of the hyperkalemia, IV fluid resuscitation and pressor support for his hypotension, supervision of ACLS protocol, multiple discussions with the patient's family. Critical Care Time: 90 minutes ED Disposition Clinical Impression: Cardiac arrest, Hyperammonemia, Lactic acidosis, Elevated troponin, Shock liver Acute respiratory failure Qualifiers: Respiratory failure complication: hypoxia and hypercapnia Qualified Code(s): J96.01 - Acute respiratory failure with hypoxia; J96.02 - Acute respiratory failure with hypercapnia Acute renal failure Qualifiers: Acute renal failure type: unspecified Qualified Code(s): N17.9 - Acute kidney failure, unspecified Hypotension Qualifiers: Hypotension type: unspecified hypotension type Qualified Code(s): I95.9 - Hypotension, unspecified Disposition: DC-20 Is pt being admited?: No Time of Disposition: 21:17
[2021-01-08] MEDS ORDERED: EPINEPHrine 1 MG/1 ML 8 MG in SODIUM CHLORIDE 0.9% 250ML 242 ML IV ONE (15:42)
[2021-01-08] MEDS ORDERED: DOPamine/D5W 800 MG/250 ML 800 MG/250 ML BAG IV ONE (15:43)
[2021-01-08 15:44] LABS: Hematocrit 45.9 % (35.5-45.6); Hemoglobin 13.6 gm/dl (11.8-15.2); Mean Corpuscular Volume 112 fl (84-94)
[2021-01-08] MEDS ORDERED: SODIUM BICARB 8.4% 50 MEQ/50 ML SYRINGE IV ONE (15:51)
[2021-01-08 15:53] LABS: Partial Thromboplastin Time 36.1 Sec. (24.2-36.6)
[2021-01-08 15:57] LABS: INR 1.69 (0.87-1.13)
[2021-01-08] MEDS ORDERED: NORepinephrine/NS 4 MG-250 ML 4 MG/250 ML BAG IV SCH (16:00)
--- NOTE | 2021-01-08 16:01 | XRay Report ---
CHEST 1 VIEW INDICATION: ETT placement COMPARISON: 01/30/2019 FINDINGS: SUPPORT DEVICES: Endotracheal tubes in good position. Nasogastric tube has tip curled in the midesoph lashaun HEART / MEDIASTINUM: No significant abnormality. LUNGS / PLEURA: Bronchovascular markings are prominent.. No pneumothorax. ADDITIONAL FINDINGS: IMPRESSION: 1. Prominent bronchovascular markings Signer Name: Deuce Rowe MD Signed: 01/08/2021 3:57 PM Workstation Name: [id number]
[2021-01-08 16:04] LABS: Albumin 2.8 g/dL (3.9-5); Calcium 7.3 mg/dL (8.4-10.2)
[2021-01-08 16:06] LABS: ABG Base Excess -15.2 mmol/L (-2.0-3.0); ABG HCO3 20.1 mmol/L (20.0-26.0); ABG Methemoglobin 0.7 % (0.0-1.5); ABG Oxygen Saturation 98.4 % (95.0-99.0); ABG PCO2 107.5 mm Hg; ABG PO2 178.3 mm Hg (80.0-90.0)
[2021-01-08] MEDS ORDERED: SODIUM POLYSTYRENE 15 GM/60 ML ORAL LIQD PO ONE (16:07)
[2021-01-08 16:12] LABS: ABG PH 6.89 pH Units (7.350-7.450)
[2021-01-08] MEDS ORDERED: CALCIUM CHLORIDE 1,000 MG in SODIUM CHLORIDE 0.9% 100 ML IV ONE (16:32)
[2021-01-08] MEDS ORDERED: ALBUTEROL 2.5 MG/3 ML NEBU IH ONE (16:33)
[2021-01-08] MEDS ORDERED: INSULIN REGULAR, HUMAN 100 UNITS/1 ML IV ONE (16:33)
[2021-01-08] MEDS ORDERED: LACTULOSE 20 GM/30 ML ORAL LIQD PO ONE (16:33)
[2021-01-08] MEDS ORDERED: DEXTROSE 50% IN WATER (25GM) 50 ML SYRINGE IV ONE ×2 (16:34→20:05)
[2021-01-08 16:51] LABS: Chol/HDL Ratio 2.36 %
[2021-01-08 17:24] LABS: Bilirubin,Urine NEG (Negative); Blood,Urine NEG (Negative); Color,Urine Yellow (Yellow); Mucus,Urine FEW /HPF; Protein,Urine <15 mg/dL mg/dL (Negative); Urobilinogen,Urine < 2.0 mg/dL (<2.0)
[2021-01-08 17:35] LABS: Amphetamine Screen,Urine Negative; Cannabinoid Screen,Urine Negative; Cocaine Screen,Urine Negative; Methadone Screen,Urine Negative; Opiate Screen,Urine Negative
[2021-01-08 17:49] LABS: Benzodiazepines Screen,Urine Positive
--- NOTE | 2021-01-08 18:43 | Cat Scan Report ---
CT HEAD WITHOUT CONTRAST INDICATION / CLINICAL INFORMATION: Altered mental status. Unresponsive patient. Ventilator dependent status post cardiac arrest. TECHNIQUE: All CT scans at this location are performed using CT dose reduction for ALARA by means of automated e xposure control. COMPARISON: None available. FINDINGS: HEMORRHAGE: No evidence of intracranial hemorrhage or extra-axial fluid collection. EXTRA-AXIAL SPACES: Cortical sulci, sylvian fissures and basilar cisterns have an unremarkable appear ance. VENTRICULAR SYSTEM: The third and lateral ventricles are of normal size and configuration. CEREBRAL PARENCHYMA: No areas of abnormal brain parenchymal attenuation are identified. There is no i ndication of recent infarction. MIDLINE SHIFT OR HERNIATION: There is no mass effect. CEREBELLUM / BRAINSTEM: Brainstem and cerebellum have an unremarkable appearance. MIDLINE STRUCTURES:No abnormalities of the pituitary gland or pineal region are identified. INTRACRANIAL VESSELS: Extensively calcified atherosclerotic plaque is seen along the course the arianne nous segments of both internal carotid arteries. This extends upward into the supraclinoid region amish aterally, right worse than left. ORBITS: Bilateral enophthalmos is incidentally noted. No additional abnormalities. SOFT TISSUES of HEAD: No significant abnormality. CALVARIUM: Evaluation of bone windows reveals no abnormalities. PARANASAL SINUSES / MASTOID AIR CELLS: Visualized portions of the paranasal sinuses are free from inf lammatory mucosal disease. Mastoid air cells are normally pneumatized. IMPRESSION: 1. No acute intracranial abnormality on head CT without contrast. Signer Name: Suman Drake MD Signed: 01/08/2021 6:39 PM Workstation Name: [id number]
--- NOTE | 2021-01-08 18:53 | History and Physical Report ---
History of Present Illness Chief complaint: Unresponsive History of present illness: 80 YO Male with Atrial Fib not on therapeutic anticoagulation, HTN, OA, GERD, PUD, Asthma, Hypothyroidism, COPD, Vascular Dementia, Cerebral Atherosclerosis presents to ED for evaluation. Pt is intubated on on vent support at the time of my evaluation and in unable to provide history. Pt history taken from EMS staff, ED staff, as well as the patient family who is at bedside during exam and interview. As per family, the patient was in his usual state of health upon awakening from sleep this morning. Patient was subsequently found down and unresponsive. Patient family began CPR and EMS was notified. Upon arrival the patient was found to be in severe distress due to asystolic arrest. The patient was initiated on ACLS protocol with eventual return of perfusing cardiac rhythm. Patient was intubated in the field and transported to [facility] for further care and evaluation of the aforementioned symptoms. The patient was seen and evaluated in the emergency department. All lab and imaging studies reviewed. Patient found to have acute respiratory failure secondary to cardiogenic shock, shock liver acute kidney injury, metabolic acidosis, new onset right bundle branch block. Patient placed on multiple pressors. Patient admitted to ICU due to multiple organ system failure. Critical care team consulted in ED. Patient f ound to have poor prognosis. Advanced care planning conducted in ED. Cardiology team consulted in ED, critical care team consulted in ED. No reports of fever, chills, chest pain, palpitation, productive cough, skin rash, recent ill contacts, known exposure to COVID-19. Prior admission on 02/06/2019 reviewed. All medication listed at time of admission has been reconciled. 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, 2 neck surgeries) Social history: , lives with family Family history: hypertension Medications and Allergies Allergies Allergy/AdvReac Type Severity Reaction Status Date / Time pregabalin [From Lyrica] AdvReac Unknown Verified 01/05/19 21:43 Home Medications Medication Instructions Recorded Confirmed Last Taken Type Pantoprazole [Protonix TAB] 40 mg PO QDAY #30 tablet 01/14/19 01/27/19 Unknown Rx Aspirin EC [Halfprin EC] 81 mg PO QDAY #30 tab 02/13/19 01/27/19 Unknown Rx Cyclobenzaprine [Flexeril 10 MG 10 mg PO Q8H PRN #60 tablet 02/13/19 Unknown Rx TAB] Ferrous Sulfate [Iron 325 MG] 325 mg PO DAILY #30 02/13/19 01/27/19 Unknown Rx Levothyroxine [Synthroid] 112 mcg PO DAILY #30 02/13/19 01/27/19 Unknown Rx Nicotine [Habitrol] 21 mg TD Q24HR #30 patch 02/13/19 Unknown Rx polyethylene glycoL 3350 [Miralax 17 gm PO QDAY PRN #15 packet 02/13/19 Unknown Rx 3350] traMADoL [Ultram 50 MG tab] 50 mg PO Q6H PRN #4 tablet 02/13/19 Unknown Rx Metoprolol [Lopressor TAB] 25 mg PO Q8HR tablet 02/18/19 Unknown Rx dilTIAZem CD [Cardizem CD] 180 mg PO QDAY capsule 02/18/19 Unknown Rx Active Meds: Active Medications Hydrophilic Ointment (Lip Therapy Vaseline) 1 applic TP Q2HR PRN PRN Reason: Dry Lips Epinephrine 8 mg/ Sodium (Chloride) 250 mls @ 3.75 mls/hr IV TITR ONE; Protocol Stop: 01/11/21 10:21 Norepinephrine (Levophed Drip 4 Mg/Ns 250 Ml) 4 mg in 250 mls @ 7.5 mls/hr IV TITR JONI; Protocol Last Titration: 01/08/21 17:00 Dose: 30 mcg/min, 112.5 mls/hr Documented by: Multi-Ingred Cream/Lotion/Oil/Oint (Mineral Oil/Petrolatum, White Ophth Oint 3.5 Gm) 1 applic OU Q4HR PRN PRN Reason: Dry Eye(s) Review of Systems ROS unobtainable: due to endotracheal tube, due to mental status Exam - Constitutional Vitals: Temp Pulse Resp BP Pulse Ox 92 H 18 124/60 100 01/08/21 16:15 01/08/21 16:22 01/08/21 16:15 01/08/21 16:22 General appearance: Present: severe distress - EENT Eyes: Present: irregular pupil, mydriasis ENT: hearing decreased - Neck Neck: Present: supple - Respiratory Respiratory effort: labored Respiratory: bilateral: diminished, rhonchi - Cardiovascular Rhythm: irregularly irregular (Hypotensive, bradycardia) - Extremities Extremity abnormal: cyanosis, cold Peripheral Pulses: abnormal - Abdominal General gastrointestinal: Present: soft, non-tender, non-distended, normal bowel sounds Male genitourinary: Present: normal - Integumentary Integumentary: Present: dry, clammy, decreased turgor - Musculoskeletal Musculoskeletal: generalized weakness - Psychiatric Psychiatric: no appropriate mood/affect, no intact judgment & insight, no memory intact - Neurologic Neurologic: no CNII-XII intact, no moves all extremities, no gait normal HEART Score - HEART Score Troponin: Troponin T 0.376 ng/mL (0.00-0.029) H* 01/08/21 15:33 Results - Labs CBC & Chem 7: 01/08/21 15:33 01/08/21 15:33 Labs: Abnormal lab results 01/08/21 01/08/21 01/08/21 Range/Units 15:33 15:33 15:33 WBC 12.0 H (4.5-11.0) K/mm3 Hct 45.9 H (35.5-45.6) % MCV 112 H (84-94) fl MCH 33 H (28-32) pg MCHC 30 L (32-34) % RDW 16.3 H (13.2-15.2) % Lymph % (Auto) 8.3 L (13.4-35.0) % Lymph # (Auto) 1.0 L (1.2-5.4) K/mm3 Seg Neutrophils % 85.6 H (40.0-70.0) % Seg Neutrophils # 10.3 H (1.8-7.7) K/mm3 PT 19.8 H (12.2-14.9) Sec. INR 1.69 H (0.87-1.13) ABG pH (7.350-7.450) pH Units ABG pO2 (80.0-90.0) mm Hg ABG Base Excess (-2.0-3.0) mmol/L VBG pH (7.320-7.420) Oxyhemoglobin (95.0-99.0) % Potassium 6.6 H* (3.6-5.0) mmol/L Carbon Dioxide 15 L (22-30) mmol/L BUN 30 H (9-20) mg/dL Creatinine 2.7 H (0.8-1.3) mg/dL Glucose 119 H (75-100) mg/dL Lactic Acid (0.7-2.0) mmol/L Calcium 7.3 L (8.4-10.2) mg/dL AST 636 H (5-40) units/L ALT 399 H (7-56) units/L Ammonia (25-60) umol/L Troponin T 0.376 H* (0.00-0.029) ng/mL Total Protein 5.5 L (6.3-8.2) g/dL Albumin 2.8 L (3.9-5) g/dL LDL Cholesterol Direct 41 L (50-130) mg/dL HDL Cholesterol 36 L (40-59) mg/dL TSH (0.270-4.200) mlU/mL 01/08/21 01/08/21 01/08/21 Range/Units 15:33 15:33 15:36 WBC (4.5-11.0) K/mm3 Hct (35.5-45.6) % MCV (84-94) fl MCH (28-32) pg MCHC (32-34) % RDW (13.2-15.2) % Lymph % (Auto) (13.4-35.0) % Lymph # (Auto) (1.2-5.4) K/mm3 Seg Neutrophils % (40.0-70.0) % Seg Neutrophils # (1.8-7.7) K/mm3 PT (12.2-14.9) Sec. INR (0.87-1.13) ABG pH (7.350-7.450) pH Units ABG pO2 (80.0-90.0) mm Hg ABG Base Excess (-2.0-3.0) mmol/L VBG pH 6.856 L* (7.320-7.420) Oxyhemoglobin (95.0-99.0) % Potassium (3.6-5.0) mmol/L Carbon Dioxide (22-30) mmol/L BUN (9-20) mg/dL Creatinine (0.8-1.3) mg/dL Glucose (75-100) mg/dL Lactic Acid 12.40 H* (0.7-2.0) mmol/L Calcium (8.4-10.2) mg/dL AST (5-40) units/L ALT (7-56) units/L Ammonia 216.0 H (25-60) umol/L Troponin T (0.00-0.029) ng/mL Total Protein (6.3-8.2) g/dL Albumin (3.9-5) g/dL LDL Cholesterol Direct (50-130) mg/dL HDL Cholesterol (40-59) mg/dL TSH (0.270-4.200) mlU/mL 01/08/21 01/08/21 01/08/21 Range/Units 16:00 16:01 17:37 WBC (4.5-11.0) K/mm3 Hct (35.5-45.6) % MCV (84-94) fl MCH (28-32) pg MCHC (32-34) % RDW (13.2-15.2) % Lymph % (Auto) (13.4-35.0) % Lymph # (Auto) (1.2-5.4) K/mm3 Seg Neutrophils % (40.0-70.0) % Seg Neutrophils # (1.8-7.7) K/mm3 PT (12.2-14.9) Sec. INR (0.87-1.13) ABG pH 6.890 L* (7.350-7.450) pH Units ABG pO2 178.3 H (80.0-90.0) mm Hg ABG Base Excess -15.2 L (-2.0-3.0) mmol/L VBG pH (7.320-7.420) Oxyhemoglobin 93.5 L (95.0-99.0) % Potassium (3.6-5.0) mmol/L Carbon Dioxide (22-30) mmol/L BUN (9-20) mg/dL Creatinine (0.8-1.3) mg/dL Glucose (75-100) mg/dL Lactic Acid 9.60 H* (0.7-2.0) mmol/L Calcium (8.4-10.2) mg/dL AST (5-40) units/L ALT (7-56) units/L Ammonia (25-60) umol/L Troponin T (0.00-0.029) ng/mL Total Protein (6.3-8.2) g/dL Albumin (3.9-5) g/dL LDL Cholesterol Direct (50-130) mg/dL HDL Cholesterol (40-59) mg/dL TSH 6.650 H (0.270-4.200) mlU/mL Assessment and Plan - Patient Problems (1) Acute hypoxemic respiratory failure Current Visit: Yes Status: Acute Plan to address problem: Chest x-ray,patient intubated and on ventilatory support. Wean vent as tolerated, sedation holiday, daily ABG, critical care team consulted The high probability of a clinically significant, sudden or life threatening deterioration of the [cardiac, pulmonary, renal, neuro] system(s) required my full and direct attention, intervention and personal management. The aggregate critical care time was [90] minutes. This time is in addition to time spent performing reported procedures but includes the following: [x] Data Review and interpretation [x] Patient assessment and monitoring of vital signs [x] Documentation [x] Medication orders and management (2) Cardiogenic shock Current Visit: Yes Status: Acute Plan to address problem: Cardiology team consulted, IV pressor support, echocardiogram in a.m. as clinically indicated, supportive care. (3) Acute kidney injury (MARIAELENA) with acute tubular necrosis (ATN) Current Visit: Yes Status: Acute Plan to address problem: IV fluid resuscitation therapy, monitor urine output every shift, BMP, repeat BMP in a.m. to monitor serum creatinine and GFR. (4) Shock liver Current Visit: Yes Status: Acute Plan to address problem: Supportive care, repeat liver function test in a.m. Suspect secondary to cardiac arrest. (5) Cardiac arrest Current Visit: Yes Status: Acute Plan to address problem: Patient treated" with ACLS protocol with eventual return of perfusing cardiac rhythm. (6) Advance care planning Current Visit: Yes Status: Acute Plan to address problem: Disease education conducted, patient is full code, patient prognosis discussed, care plan discussed, patient family acknowledges understanding and agreement with care plan, +30 minutes.
[2021-01-08 19:49] VITALS: BP 77/48
[2021-01-08] MEDS ORDERED: FAMOTIDINE 20 MG/2 ML INJ IV SCH ×2 (20:00→22:00)
--- NOTE | 2021-01-08 20:58 | Event Note ---
Date: 01/08/21 Advance care planning. Patient prognosis discussed again with patient and daughter. Patient family acknowledges poor prognosis. Patient elects to make patient DNR. Patient request comfort measures only. Patient treated with supportive care. +30 minutes.
[2021-01-08] MEDS ORDERED: MORPHINE 4 MG/1 ML INJ IV SCH (21:00)
[2021-01-08] MEDS ORDERED: D5W/0.9% NACL 1,000 ML IV SCH (21:00)
[2021-01-09] MEDS ORDERED: LEVOTHYROXINE 112 MCG TAB PO SCH (06:00)
--- NOTE | 2021-01-09 09:25 | Electrocardiograph Report ---
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
[2021-01-09] MEDS ORDERED: FERROUS SULFATE 325 MG TAB PO SCH (10:00)
--- NOTE | 2021-01-09 11:52 | Death Note ---
Note Date of : 01/08/21 Time of : 20:47 Time Pronounced: 20:55 - Preliminary Cause of (problem) (1) Acute hypoxemic respiratory failure Preliminary cause of (2) Cardiogenic shock Preliminary cause of (3) Acute kidney injury (MARIAELENA) with acute tubular necrosis (ATN) Preliminary cause of (4) Shock liver Preliminary cause of (5) Cardiac arrest Preliminary cause of (6) Advance care planning Preliminary cause of
== END 2021-01-09 04:10 ==
LOC: ED 15:11 → CC1 18:54 → UNDOADMIN 18:54 → ED 01-09 04:10
DX: I46.9 Cardiac arrest, cause unspecified (principal); N17.9 Acute kidney failure, unspecified; K72.00 Acute and subacute hepatic failure without coma; E72.20 Disorder of urea cycle metabolism, unspecified; E87.2 Acidosis; R77.8 Other specified abnormalities of plasma proteins; J96.90 Respiratory failure, unspecified, unspecified whether with hypoxia or hypercapnia; I95.9 Hypotension, unspecified; R57.0 Cardiogenic shock; R51.9 Headache, unspecified; I10 Essential (primary) hypertension; M19.91 Primary osteoarthritis, unspecified site; J44.9 Chronic obstructive pulmonary disease, unspecified; Z98.890 Other specified postprocedural states; Z87.891 Personal history of nicotine dependence; Z79.899 Other long term (current) drug therapy; Z88.8 Allergy status to other drugs, medicaments and biological substances
CPT/HCPCS: 36415; 36556; 70450; 71045; 80053; 80061; 80307; 81001; 82140; 82803; 82805; 82962; 84443; 84484; 85025; 85610; 85730; 87040; 93005; 96365; 96368; 96375; 99291; 99292; J0171; J0282; J1265; J2270; J7030; J7050; 80320; 94002; G0480; J1815